=== PATIENT | male | born 1950 | race Caucasian/White ===

== ENCOUNTER 2021-06-20 22:24 | Emergency (ER) | payer MEDICARE, BC, SELFPAY ==
--- NOTE | ~2021-06-20 | CT_ITS ---
EXAMINATION: NONCONTRAST HEAD CT NONCONTRAST CERVICAL SPINE CT INDICATION INFORMATION: Status post fall COMPARISON: None TECHNIQUE: Separate noncontrast CT examinations of the head and cervical spine were performed. Coronal head CT images and coronal and sagittal cervical spine images were created at the technologist workstation. DLP: 1474 mGy-cm DOSE LOWERING TECHNIQUES: This CT examination was performed using dose optimization techniques as appropriate, variously including the following: - Automated exposure control - Adjustment of mA and/or kV according to patient size (this includes techniques or standardized protocols for targeted exams were dose is matched to indication/reason for exam; i.e. extremities or head) - Use of iterative reconstruction technique FINDINGS: Head: There is no evidence of acute intracranial hemorrhage or territorial infarction. No abnormal mass-effect or midline shift is seen. [place] to white matter differentiation is well preserved. No extra-axial fluid collections are identified. The ventricles are normal in size. Mild volume loss is noted. The osseous structures and soft tissues are normal. There is rightward deviation of the nasal septum. The mastoid air cells and visualized portions of the paranasal sinuses are well-aerated. Cervical spine: There is degenerative change at the atlantodens articulation. There is grade 1 anterolisthesis of C3 on C4 and C4 on C5 which is favored to be chronic/degenerative in nature in the setting of extensive multilevel facet arthropathy. Vertebral body heights are maintained. There is disc space narrowing in the lower cervical spine with associated endplate osteophytes. No evidence of acute fracture. No prevertebral soft tissue swelling. Visualized portions of the lung apices are unremarkable. The thyroid gland is unremarkable. CT/CT cervical spine wo con IMPRESSION: No acute findings identified in the head or cervical spine. Degenerative changes of the cervical spine.
[2021-06-20 22:38] VITALS: BP 112/58; PULSE 74; RESP 18; TEMP 36.4; O2SAT 97; BMI 32.8
[2021-06-20 22:44] LABS: Glucose, Whole Blood 263 mg/dL (60-115)
--- NOTE | 2021-06-20 23:30 | ED_ITS ---
HPI - Fall General Chief Complaint: Fall Stated Complaint: fall Time Seen by Provider: 06/20/21 22:40 Source: patient Mode of arrival: EMS Limitations: no limitations History of Present Illness HPI Narrative: Patient had few drinks on blood thinner Eliquis? was coming out of the bar lost balance and fell hitting his head to the ground with bleeding from the mouth transit passed out, no seizures acting normally now. Patient denied any chest pain or palpitation or shortness of breath Related Data Allergies Allergy/AdvReac Type Severity Reaction Status Date / Time No Known Allergies Allergy Verified 06/20/21 22:50 Review of Systems Review of Systems: Yes all other systems are reviewed and are negative REPLACED BY [facility] Past Medical History Medical History Diabetes Physical Exam Vital Signs: Vital Signs: Last Vital Signs Temp 97.5 F 06/20/21 22:38 Pulse 74 06/20/21 22:38 Resp 18 06/20/21 22:38 BP 112/58 L 06/20/21 22:38 Pulse Ox 97 06/20/21 22:38 Oxygen Flow Rate 2 06/20/21 22:38 Body Mass Index 32.8 Appearance: Alert. Oriented X3. No acute distress. Intoxicated Eyes: PERRLA, No Nystagmus ENT: Pharynx normal. Oral Mucosa moist dried blood in the mouth teeth are intact Neck: Normal inspection. Neck supple. CVS: Normal heart rate and rhythm. Pulses normal. Respiratory: No respiratory distress. Equal air entry bilateral, no wheezing/rales/rhonchi Abdomen: Soft and nontender. Bowel sounds are present, no mass palpable, no CVA tenderness Skin: Skin warm and dry. Normal skin color. Normal skin turgor. Extremities: No lower extremity edema. No calf tenderness Neuro: Oriented X 3. No motor deficit. No sensory deficit.No cerebellar signs , cranial nerves II-XII intact Course Course Course Narrative: Patient status post mechanical fall after had alcohol. CT scan of the head and C-spine negative with discharge home when sober MDM - Fall Lab Data Labs: Lab Results 06/20/21 Range/Units 22:39 POC Glucose 263 H (60-115) mg/dL Discharge Plan Discharge Clinical Impression: Head injury Qualifiers: Encounter type: initial encounter Qualified Code(s): S09.90XA - Unspecified injury of head, initial encounter Patient Disposition: Home, Self-Care Instructions: Head Injury (ED), Abuse of Alcohol (ED) Additional Instructions: Rest at home Report to the ER if in and change in mental status/seizures/ any focal weakness
== END 2021-06-21 02:02 | disposition home or self-care (01) ==
LOC: HO.ED 06-21 01:57
PROVIDERS: Emergency Provider Internal Medicine
DX: S09.90XA Unspecified injury of head, initial encounter (principal); E11.9 Type 2 diabetes mellitus without complications; W18.30XA Fall on same level, unspecified, initial encounter; Y93.9 Activity, unspecified; Y92.89 Other specified places as the place of occurrence of the external cause; Y99.9 Unspecified external cause status
CPT/HCPCS: 70450; 72125; 82947; 99284

== ENCOUNTER 2021-07-11 22:58 | Emergency (ER) | payer MEDICARE, BC, SELFPAY ==
--- NOTE | ~2021-07-11 | CT_ITS ---
EXAMINATION: CT ABDOMEN AND PELVIS WITHOUT CONTRAST CLINICAL INFORMATION: Right-sided pain, history of kidney stones COMPARISON: None TECHNIQUE: Multidetector volumetric imaging was performed from the superior aspect of the liver through the pubic symphysis. Sagittal and coronal reformatted images were obtained on the technologist's workstation. This CT examination was performed using dose optimization techniques as appropriate, variously including the following: *Automated exposure control *Adjustment of mA and/or kV according to patient size (this includes techniques or standardized protocols for targeted exams where dose is matched to indication/reason for exam; i.e. extremities or head) *Use of iterative reconstruction technique DLP: 752 mGy-cm FINDINGS: LUNG BASES: The visualized lung bases are unremarkable. LIVER, GALLBLADDER, AND BILIARY TREE: The liver is normal in size, shape, and attenuation. No focal hepatic lesion or biliary ductal dilatation is present. Cholelithiasis is noted. PANCREAS: Atrophic appearance of the pancreas. SPLEEN: Unremarkable. ADRENAL GLANDS: Unremarkable. KIDNEYS AND URETERS: The kidneys are normal in size, shape, and attenuation. Punctate mid right renal calculus is noted. No hydronephrosis, hydroureter, or obstructing calculi seen. Left renal cysts are noted; no follow-up recommended. BLADDER: Unremarkable. GASTROINTESTINAL TRACT: Suture lines are noted along the stomach and proximal small bowel consistent with gastric bypass surgery. No evidence of bowel obstruction. There is colonic diverticulosis without diverticulitis. No free fluid or free air is seen. ABDOMINAL WALL: Bilateral fat-containing inguinal hernias are noted. LYMPH NODES: Normal. VASCULAR: There is atherosclerotic calcification along the aorta and iliac arteries. PELVIC VISCERA: Unremarkable. OSSEOUS STRUCTURES: Degenerative changes are noted in the spine. CT/CT abdomen pelvis wo con IMPRESSION: 1. Cholelithiasis. If there is clinical concern for acute cholecystitis, correlation with ultrasound is recommended. 2. No hydronephrosis or obstructing calculus.
[2021-07-11 23:11] VITALS: BP 199/91; PULSE 57; RESP 16; TEMP 36.8; O2SAT 94; BMI 33.0
[2021-07-11 23:52] LABS: MANUAL DIFF FLAG NO
[2021-07-11 23:53] LABS: Basophils Absolute Auto 0.1 X10*3/uL (0.0-0.2); Basophils Percent Auto 0.5 % (0-2); Eosinophils Absolute Auto 0.1 X10*3/uL (0.0-0.4); Eosinophils Percent Auto 0.7 % (0-4); Hematocrit 48.7 % (42.0-52.0); Hemoglobin 16.2 g/dl (14.0-18.0); Imm Gran Abs Auto 0.06 X10*3/uL (0.00-0.03); Imm Gran Pct Auto 0.4 % (0.0-0.4); Lymphocytes Absolute Auto 1.4 X10*3/uL (1.2-4.9); Lymphocytes Percent Auto 9.4 % (20-40); Mean Corpuscular HGB Conc 33.3 g/dl (31.0-36.0); Mean Corpuscular Hemoglobin 29.9 pg (27.0-33.0); Mean Platelet Volume 10.4 fL (9.4-12.4); Monocytes Absolute Auto 0.9 X10*3/uL (0.1-1.2); Monocytes Percent Auto 6.4 % (2-11); Neutrophils Percent Auto 82.6 % (45-73); Platelet Count 235 X10*3/uL (160-400); Red Blood Count 5.41 X10*6/uL (4.60-5.80); Red Cell Distribution Width 13.3 % (11.0-16.0); White Blood Count 14.6 X10*3/uL (4.8-10.8)
[2021-07-11 23:55] LABS: Appearance Urine CLEAR; Color Urine YELLOW; Glucose Urine UA >=1000 MG/DL (NEG); Leukocyte Esterase Urine NEG (NEG); Nitrite Urine NEG (NEG); UACC Culture Trigger NO; Urine Blood TRACE (NEG); Urine Ketones NEG (NEG); Urine Protein 1+ MG/DL (NEG-TRACE)
[2021-07-12 00:11] LABS: Alanine Aminotransferase 103 U/L (0-40); Albumin Level 4.4 g/dL (3.5-5.0); Alkaline Phosphatase 130 U/L (39-117); Anion Gap 17 (12-20); Aspartate Amino Transferase 59 U/L (5-37); Bacteria Urine 1+ /LPF; Bilirubin Total 0.6 mg/dL (0.0-1.0); Blood Urea Nitrogen 14 mg/dL (9-16); Calcium 9.2 mg/dL (8.4-10.2); Carbon Dioxide 22 mmol/L (22-29); Chloride 105 mmol/L (96-108); Creatinine Clr Calc Pharmacy 76.9; Estimated Glomerular Filt Rate > 60; Glucose Random 206 mg/dL (60-115); Mucus Urine 1+ /LPF; Sodium 140 mmol/L (135-145); Squamous Epithelial Cell Urine 1+ /LPF; UACC CULT YES
--- NOTE | 2021-07-12 00:56 | ED_ITS ---
HPI - Abdominal Pain General Chief Complaint: Abdominal Pain Stated Complaint: ABD PAIN Time Seen by Provider: 07/12/21 00:46 Source: patient History of Present Illness HPI narrative: Patient complains of severe epigastric pain prior to arrival. He states this started approximately 9:00 p.m.. Started in his epigastrium and radiated down words. No nausea vomiting diarrhea or constipation No urinary symptoms No back pain Patient states he has a history of he thinks both kidney stones and gallstones. Prior surgery significant for gastric bypass. As far as he knows his gallbladder is still in. He thinks he may have had his appendix out with the gastric bypass surgery. But he is not sure. Currently feels much better the pain resolved spontaneously approximately 1 hour ago. He states he has a history of kidney stones but does not remember if this is what it felt like. He does not think his gallstones of ever acted up Related Data Home Medications Medication Instructions Recorded Confirmed donepezil 10 mg tablet 1 tab PO DAILY 07/12/21 07/12/21 empagliflozin 25 mg tablet 1 tab PO DAILY 07/12/21 07/12/21 (Jardiance) ezetimibe 10 mg-simvastatin 80 mg 1 tab PO BEDTIME 07/12/21 07/12/21 tablet glimepiride 4 mg tablet 1 tab PO BID 07/12/21 07/12/21 insulin aspart U-100 100 unit/mL See Rx Instructions .ROUTE .COMPLEX 07/12/21 07/12/21 (3 mL) subcutaneous pen (Novolog Flexpen U-100 Insulin aspart) insulin glargine U-300 conc 300 See Rx Instructions .ROUTE .COMPLEX 07/12/21 07/12/21 unit/mL (1.5 mL) subcutaneous pen (Toujeo SoloStar U-300 Insulin) metoprolol succinate 50 mg capsule 1 cap PO DAILY 07/12/21 07/12/21 sprinkle, ext. release 24 hr (Kapspargo Sprinkle) pantoprazole 40 mg tablet,delayed 1 tab PO DAILY 07/12/21 07/12/21 release ticagrelor 60 mg tablet (Brilinta) 1 tab PO BID 07/12/21 07/12/21 Allergies Allergy/AdvReac Type Severity Reaction Status Date / Time No Known Allergies Allergy Verified 06/20/21 22:50 Review of Systems Constitutional: Denies fatigue and Denies fever(s) Comments: No chest pain Comments: No cough or dyspnea Comments: Abdominal pain as described Comments: No dysuria no hematuria Comments: No extremity pain Comments: No rash Comments: No weakness Endocrine: Denies fatigue Physical Exam Vital Signs: Vital Signs: Last Vital Signs Temp 98.2 F 07/11/21 23:11 Pulse 66 07/12/21 01:25 Resp 20 07/12/21 01:25 BP 139/48 L 07/12/21 01:25 Pulse Ox 95 07/12/21 01:25 Body Mass Index 33.0 Const: Other: Alert no acute distress Resp: Other: Clear and equal bilaterally Cardio: Other: Regular rate and rhythm without murmurs rubs or gallops GI: Other: Soft, nondistended. Mild right lower quadrant abdominal tenderness to palpation without guarding or rebound. No specific Whipple's sign. No flank tenderness to percussion Skin: Other: Warm pink and dry Neuro: Other: Nonfocal Course Course Course Narrative: Abdominal pain Gallstone Kidney stone Appendicitis Patient is comfortable at the moment. Urinalysis normal Lab work normal 2:[address] scan demonstrates gallstones but no obvious cholecystitis. No obvious kidney stones. Re-examination shows patient is is nontender. He is stable for discharge home. Will refer to surgery as the most probable cause of his pain was biliary colic secondary to gallstones without cholecystitis at this time MDM - Abdominal Pain Lab Data Result diagrams: 07/11/21 23:46 07/11/21 23:46 Labs: Lab Results 07/11/21 07/11/21 07/11/21 Range/Units 23:46 23:46 23:46 WBC 14.6 H (4.8-10.8) X10*3/uL RBC 5.41 (4.60-5.80) X10*6/uL Hgb 16.2 (14.0-18.0) g/dl Hct 48.7 (42.0-52.0) % MCV 90.0 (80.0-98.0) fL MCH 29.9 (27.0-33.0) pg MCHC 33.3 (31.0-36.0) g/dl RDW 13.3 (11.0-16.0) % Plt Count 235 (160-400) X10*3/uL MPV 10.4 (9.4-12.4) fL Immature Gran % (Auto) 0.4 (0.0-0.4) % Neut % (Auto) 82.6 H (45-73) % Lymph % (Auto) 9.4 L (20-40) % [place] % (Auto) 6.4 (2-11) % Eos % (Auto) 0.7 (0-4) % Baso % (Auto) 0.5 (0-2) % Lymph # (Auto) 1.4 (1.2-4.9) X10*3/uL [place] # (Auto) 0.9 (0.1-1.2) X10*3/uL Eos # (Auto) 0.1 (0.0-0.4) X10*3/uL Baso # (Auto) 0.1 (0.0-0.2) X10*3/uL Abs Immat Gran (auto) 0.06 H (0.00-0.03) X10*3/uL Absolute Neuts (auto) 12.0 H (2.0-8.3) x10*3/uL Absolute Nucleated RBC 0.000 (0.0-0.012) X10*3/uL Nucleated RBC % (auto) 0.0 (0.0-0.2) /100WBC Sodium 140 (135-145) mmol/L Potassium 4.0 (3.3-5.1) mmol/L Chloride 105 (96-108) mmol/L Carbon Dioxide 22 (22-29) mmol/L Anion Gap 17 (12-20) BUN 14 (9-16) mg/dL Creatinine 1.05 (0.5-1.4) mg/dL Estim Creat Clear Calc 76.9 Estimated GFR > 60 Random Glucose 206 H (60-115) mg/dL Calcium 9.2 (8.4-10.2) mg/dL Total Bilirubin 0.6 (0.0-1.0) mg/dL AST 59 H (5-37) U/L ALT 103 H (0-40) U/L Alkaline Phosphatase 130 H (39-117) U/L Total Protein 7.0 (6.5-8.0) g/dL Albumin 4.4 (3.5-5.0) g/dL Urine Color YELLOW Urine Appearance CLEAR Urine pH 6.0 (5.0-8.0) Ur Specific Leonidas 1.020 (1.005-1.025) Urine Protein 1+ H (NEG-TRACE) MG/DL Urine Glucose (UA) >=1000 H (NEG) MG/DL Urine Ketones NEG (NEG) MG/DL Urine Blood TRACE (NEG) Urine Nitrite NEG (NEG) Ur Leukocyte Esterase NEG (NEG) Urine RBC 1-4 (0) /HPF Urine WBC 5-9 H (0-4) /HPF Ur Squamous Epith Cells 1+ /LPF Urine Bacteria 1+ /LPF Urine Mucus 1+ /LPF Discharge Plan Discharge Clinical Impression: Gallstones Patient Disposition: Home, Self-Care Instructions: Gallstones (ED) Prescriptions: No Action donepezil 10 mg tablet 1 tab PO DAILY RF: 0 glimepiride 4 mg tablet 1 tab PO BID RF: 0 insulin aspart U-100 [Novolog Flexpen U-100 Insulin] 100 unit/mL (3 mL) insulin pen See Rx Instructions .ROUTE .COMPLEX RF: 0 ezetimibe-simvastatin 10-80 mg tablet 1 tab PO BEDTIME RF: 0 Jardiance 25 mg tablet 1 tab PO DAILY RF: 0 Toujeo SoloStar U-300 Insulin 300 unit/mL (1.5 mL) insulin pen See Rx Instructions .ROUTE .COMPLEX RF: 0 Brilinta 60 mg tablet 1 tab PO BID RF: 0 Kapspargo Sprinkle 50 mg capsule,sprinkle,ER 24hr 1 cap PO DAILY RF: 0 pantoprazole 40 mg tablet,delayed release (DR/EC) 1 tab PO DAILY RF: 0 Referrals: Jose Franco MD [Physician] - 2 days [facility] Past Medical History Medical History Diabetes Social History Social History Alcohol intake: former Patient Tobacco Use Status: Never used Tobacco Use of substances other than those prescribed or required for medical reasons: Yes Substance Use Type: Other Substance Use Frequency: Occasionally Advance Directives: No Advance Directives Information Provided: No
[2021-07-12 01:25] VITALS: BP 139/48; PULSE 66; RESP 20; O2SAT 95
[2021-07-12 02:00] VITALS: BP 139/48; PULSE 66; RESP 20; TEMP 36.8; O2SAT 95
== END 2021-07-12 03:53 | disposition home or self-care (01) ==
PROVIDERS: Emergency Provider Emergency Medicine
DX: K80.80 Other cholelithiasis without obstruction (principal); R10.13 Epigastric pain
CPT/HCPCS: 36415; 74176; 80053; 81001; 85025; 87086; 99285

== ENCOUNTER 2021-07-13 00:49 | Inpatient (IN) | payer MEDICARE, BC, SELFPAY ==
--- NOTE | ~2021-07-13 | XR_ITS ---
EXAMINATION: XR CHEST CLINICAL INFORMATION: Right upper quadrant pain COMPARISON: None TECHNIQUE: Frontal view of the chest was obtained. FINDINGS: Lung volumes dissection. Minimal bibasilar atelectasis is suspected without additional consolidation bilaterally. No evidence of pneumothorax, pleural effusion, or pulmonary edema. Cardiac size is within normal limits. Calcification is present at the aortic arch. Sternal wires and mediastinal clips are noted. No acute osseous findings are seen. XR/XR chest 1V IMPRESSION: Minimal bibasilar atelectasis without additional acute findings.
--- NOTE | ~2021-07-13 | MR_ITS ---
EXAMINATION: MR ABDOMEN WITHOUT CONTRAST CLINICAL INFORMATION: Transaminitis. Rule out common bile duct stone. COMPARISON: Comparison is made with previous CT of the abdomen and pelvis July 12 and ultrasound of the abdomen 07/13/2021 TECHNIQUE: MR abdomen is performed without gadolinium contrast. MRCP sequences were also performed. FINDINGS: LUNG BASES: The visualized lung bases are unremarkable. LIVER, GALLBLADDER, AND BILIARY TREE: The liver is normal in size and shape. There is fatty infiltration of the liver. No focal liver lesion is seen. The gallbladder is upper normal in size. There are stones and heterogeneous material in the gallbladder. The gallbladder wall appears slightly thickened and edematous, gallbladder wall measuring up to 5 mm. Appearance is concerning for acute cholecystitis. There is no intra or extrahepatic biliary duct dilatation. The common bile duct measures 4 mm. No common bile duct stone is seen. PANCREAS: The pancreas appears atrophic. Pancreas is otherwise normal. The main pancreatic duct is normal in caliber. SPLEEN: Unremarkable. ADRENAL GLANDS: Unremarkable. KIDNEYS AND URETERS: There are several left renal simple cysts. Largest measures 3 cm. No imaging follow-up needed. The kidneys are otherwise unremarkable GASTROINTESTINAL TRACT: There is diverticulosis of the colon. Postsurgical changes from gastric bypass. No bowel obstruction. No ascites or fluid collection. ABDOMINAL WALL: No significant hernia is appreciated. LYMPH NODES: No lymphadenopathy. VASCULAR: Unremarkable. OSSEOUS STRUCTURES: Marrow signal normal. There are degenerative changes of the spine. MR/MR MRCP IMPRESSION: Upper normal-size gallbladder with gallstones and heterogeneous material probably representing sludge. Thickened edematous gallbladder wall. Findings are concerning for acute cholecystitis. Normal caliber intra and extrahepatic bile ducts. No common bile duct stone seen. Left renal cysts. Diverticulosis of the colon. Gastric bypass.
--- NOTE | ~2021-07-13 | US_ITS ---
EXAMINATION: US ABDOMEN LIMITED CLINICAL INFORMATION: Right upper quadrant pain, assess for acute cholecystitis. COMPARISON: CT 07/12/2021 TECHNIQUE: Real-time imaging of the right upper quadrant abdominal viscera. FINDINGS: PANCREAS: Obscured by overlying bowel gas. LIVER: Limited views. The liver is normal in size. The liver contour is normal. Echogenicity appears increased suggesting steatosis, with possible focal sparing near the gallbladder fossa. No focal hepatic lesion. There is no intrahepatic biliary duct dilatation seen. GALLBLADDER: The gallbladder is distended and contains multiple gallstones as well as sludge. Impacted stone may be present. There is mild gallbladder wall thickening to 0.4 cm. Right upper quadrant tenderness was reported during the exam. COMMON BILE DUCT: Normal in caliber measuring 0.4 cm in diameter. RIGHT KIDNEY: No hydronephrosis. No renal calculi or focal parenchymal lesions. The kidney measures 12.8 cm in maximum dimension. FREE FLUID: None. US/US abdomen limited IMPRESSION: Cholelithiasis and gallbladder sludge. Impacted stone may be present, and there is mild gallbladder wall thickening. These findings can be seen with acute cholecystitis in the proper clinical setting.
--- NOTE | 2021-07-13 01:07 | ECG_ITS ---
Test Reason : ABDOMINAL PAIN Blood Pressure : / mmHG Vent. Rate : 105 BPM Atrial Rate : 000 BPM P-R Int : 000 ms QRS Dur : 104 ms QT Int : 340 ms P-R-T Axes : 000 -07 086 degrees QTc Int : 449 ms Normal sinus rhythm with 1st degree A-V block Intra-ventricular conduction delay Low voltage QRS Abnormal ECG No previous ECGs available Referred By: Yonny Valenzuela Electronically Signed By:LEONEL GEORGE MD
[2021-07-13 01:12] VITALS: BP 165/81; BP 191/86; PULSE 104; PULSE 98; RESP 18; TEMP 37.1; O2SAT 94; O2SAT 95; BMI 36.0
--- NOTE | 2021-07-13 01:14 | ED.ABDPAIN ---
HPI - Abdominal Pain General Chief Complaint: Abdominal Pain Stated Complaint: Abd pain Time Seen by Provider: 07/13/21 01:06 Source: patient Mode of arrival: ambulatory Limitations: no limitations History of Present Illness HPI narrative: 71-year-old male return to the emergency department for evaluation of upper abdominal pain, pain started since yesterday, pain is to the right upper quadrant and epigastric area, described as dull aching pain, constant, severe 10/10. Worsening with food, no associations with nausea and vomiting. Patient was seen in the emergency department yesterday had a CT scan of the abdomen pelvis which show cholelithiasis patient return for worsening of the pain. history of gastric bypass many years ago. Related Data Home Medications Medication Instructions Recorded Confirmed donepezil 10 mg tablet 1 tab PO DAILY 07/12/21 07/12/21 empagliflozin 25 mg tablet 1 tab PO DAILY 07/12/21 07/12/21 (Jardiance) ezetimibe 10 mg-simvastatin 80 mg 1 tab PO BEDTIME 07/12/21 07/12/21 tablet glimepiride 4 mg tablet 1 tab PO BID 07/12/21 07/12/21 insulin aspart U-100 100 unit/mL See Rx Instructions .ROUTE .COMPLEX 07/12/21 07/12/21 (3 mL) subcutaneous pen (Novolog Flexpen U-100 Insulin aspart) insulin glargine U-300 conc 300 See Rx Instructions .ROUTE .COMPLEX 07/12/21 07/12/21 unit/mL (1.5 mL) subcutaneous pen (Toujeo SoloStar U-300 Insulin) metoprolol succinate 50 mg capsule 1 cap PO DAILY 07/12/21 07/12/21 sprinkle, ext. release 24 hr (Kapspargo Sprinkle) pantoprazole 40 mg tablet,delayed 1 tab PO DAILY 07/12/21 07/12/21 release ticagrelor 60 mg tablet (Brilinta) 1 tab PO BID 07/12/21 07/12/21 Allergies Allergy/AdvReac Type Severity Reaction Status Date / Time No Known Allergies Allergy Verified 06/20/21 22:50 Review of Systems Review of Systems All other systems are reviewed and are negative Constitutional: Reports as per HPI and Reports no additional constitutional complaints Eyes: Reports as per HPI and Reports no additional eye complaints Reports system reviewed and no additional complaints, except as documented Cardiovascular: Reports as per HPI and Reports no additional cardiovascular complaints Respiratory: Reports as per HPI and Reports no additional respiratory complaints Gastrointestinal: Reports as per HPI and Reports no additional gastrointestinal complaints Genitourinary: Reports no additional female genitourinary complaints Musculoskeletal: Reports no additional musculoskeletal complaints Skin/Breast: Reports system reviewed and no additional complaints, except as docu Psychiatric: Reports no additional psychiatric complaints Endocrine: Reports no additional endocrine complaints Hematologic/Lymphatic: Reports no additional hematologic/lymphatic complaints Allergic/Immunologic: Reports no additional allergic/immunologic complaints Reports system reviewed and no additional complaints, except as documented and Reports Abnormal speech present Physical Exam Vital Signs: Vital Signs: Last Vital Signs Temp 98.8 F 07/13/21 02:42 Pulse 104 H 07/13/21 02:42 Resp 20 07/13/21 02:42 BP 150/80 H 07/13/21 02:42 Pulse Ox 95 07/13/21 02:42 Body Mass Index 36.0 vital signs have been reviewed as appeared to be correct. Blood pressure normal. Heart rate normal. Respiration rate normal. Temperature normal. Oxygen saturation normal. Appearance: Alert. Oriented X3. No acute distress. Head: Normal external exam. Normocephalic. Atraumatic. No Sewell signs noted. No raccoon eyes noted Eyes: PERRLA. EOMI. Conjunctiva and sclera normal. Eyelids normal. ENT: TM's Normal. Pharynx normal. Uvula midline. Moist mucous membranes. No trismus noted. No drooling noted. No muffled voice noted. Neck: Normal inspection. Neck supple. FROM. No adenopathy. Thyroid Normal. No meningeal signs. No neck mass noted. CVS: Normal heart rate and rhythm. Heart sound normal. No murmurs noted. Pulses normal throughout. Respiratory: No respiratory distress. Painless inspiration. Breath sounds normal. No wheezes/rales/rhonchi noted. Chest nontender. No accessory muscle usage noted or decreased air movement noted. Abdomen: Obese, soft, right upper quadrant tenderness, positive Whipple sign. No rebound tenderness, no guarding. Bowel sounds normal in all 4 quadrants. No distention noted. No organomegaly noted. No visible injury noted. Back: No CVA tenderness. Full range of motion noted. Skin: Skin warm and dry. Normal skin color. Normal skin turgor. No rashes/lesions/lacerations noted. Extremities: No lower extremity edema. Extremities exhibit normal range of motion. Extremities nontender. Neuro: Oriented X 3. Cranial nerve exam: II-XII are grossly intact No motor deficit. No sensory deficit. Reflexes normal. Course Course Course Narrative: assessment and plan. 71-year-old male return to the emergency department for increased abdominal pain and vomiting, patient found to to have acute elevation of LFTs and bilirubins, ultrasound is suggesting impacted stone in the gallbladder neck, possibility of acute cholecystitis( ultrasound read at 3:08 am ). Will cover with Zosyn /Levaquin, IV fluid hydration. The case discussed with Dr. Padilla who recommended to admit the patient to Medicine for possible ERCP in the morning. The case discussed with Dr. Negron who accepted the patient to medical agustin. MDM - Abdominal Pain Medical Records Attestation: I reviewed the patient's medical records. Lab Data Attestation: I reviewed the patient's lab results. Result diagrams: 07/13/21 01:28 07/13/21 01:26 Labs: Lab Results 07/13/21 07/13/21 07/13/21 Range/Units 01:22 01:26 01:28 WBC 16.5 H (4.8-10.8) X10*3/uL RBC 5.87 H (4.60-5.80) X10*6/uL Hgb 17.5 (14.0-18.0) g/dl Hct 53.0 H (42.0-52.0) % MCV 90.3 (80.0-98.0) fL MCH 29.8 (27.0-33.0) pg MCHC 33.0 (31.0-36.0) g/dl RDW 13.4 (11.0-16.0) % Plt Count 200 (160-400) X10*3/uL MPV 10.5 (9.4-12.4) fL Immature Gran % (Auto) 0.4 (0.0-0.4) % Neut % (Auto) 82.7 H (45-73) % Lymph % (Auto) 9.0 L (20-40) % Mccreary % (Auto) 7.3 (2-11) % Eos % (Auto) 0.1 (0-4) % Baso % (Auto) 0.5 (0-2) % Lymph # (Auto) 1.5 (1.2-4.9) X10*3/uL [place] # (Auto) 1.2 (0.1-1.2) X10*3/uL Eos # (Auto) 0.0 (0.0-0.4) X10*3/uL Baso # (Auto) 0.1 (0.0-0.2) X10*3/uL Abs Immat Gran (auto) 0.06 H (0.00-0.03) X10*3/uL Absolute Neuts (auto) 13.7 H (2.0-8.3) x10*3/uL Absolute Nucleated RBC 0.000 (0.0-0.012) X10*3/uL Nucleated RBC % (auto) 0.0 (0.0-0.2) /100WBC Sodium 137 (135-145) mmol/L Potassium 4.3 (3.3-5.1) mmol/L Chloride 98 (96-108) mmol/L Carbon Dioxide 20 L (22-29) mmol/L Anion Gap 23 H (12-20) BUN 17 H (9-16) mg/dL Creatinine 1.21 (0.5-1.4) mg/dL Estim Creat Clear Calc 63.5 Estimated GFR 59 Random Glucose 244 H (60-115) mg/dL Calcium 10.7 H D (8.4-10.2) mg/dL Total Bilirubin 4.1 H (0.0-1.0) mg/dL Direct Bilirubin 3.5 H (0.0-0.5) mg/dL AST 654 H (5-37) U/L ALT 542 H (0-40) U/L Alkaline Phosphatase 333 H D (39-117) U/L Troponin I High Sens (<3.5-35.0) ng/L Total Protein 7.8 (6.5-8.0) g/dL Albumin 4.7 (3.5-5.0) g/dL Lipase 215 H (8-78) U/L COVID-19 ([facility]) Negative (Negative) COVID-19 Clin Com See Note 07/13/21 Range/Units 01:28 WBC (4.8-10.8) X10*3/uL RBC (4.60-5.80) X10*6/uL Hgb (14.0-18.0) g/dl Hct (42.0-52.0) % MCV (80.0-98.0) fL MCH (27.0-33.0) pg MCHC (31.0-36.0) g/dl RDW (11.0-16.0) % Plt Count (160-400) X10*3/uL MPV (9.4-12.4) fL Immature Gran % (Auto) (0.0-0.4) % Neut % (Auto) (45-73) % Lymph % (Auto) (20-40) % Mccreary % (Auto) (2-11) % Eos % (Auto) (0-4) % Baso % (Auto) (0-2) % Lymph # (Auto) (1.2-4.9) X10*3/uL Mccreary # (Auto) (0.1-1.2) X10*3/uL Eos # (Auto) (0.0-0.4) X10*3/uL Baso # (Auto) (0.0-0.2) X10*3/uL Abs Immat Gran (auto) (0.00-0.03) X10*3/uL Absolute Neuts (auto) (2.0-8.3) x10*3/uL Absolute Nucleated RBC (0.0-0.012) X10*3/uL Nucleated RBC % (auto) (0.0-0.2) /100WBC Sodium (135-145) mmol/L Potassium (3.3-5.1) mmol/L Chloride (96-108) mmol/L Carbon Dioxide (22-29) mmol/L Anion Gap (12-20) BUN (9-16) mg/dL Creatinine (0.5-1.4) mg/dL Estim Creat Clear Calc Estimated GFR Random Glucose (60-115) mg/dL Calcium (8.4-10.2) mg/dL Total Bilirubin (0.0-1.0) mg/dL Direct Bilirubin (0.0-0.5) mg/dL AST (5-37) U/L ALT (0-40) U/L Alkaline Phosphatase (39-117) U/L Troponin I High Sens 9.5 (<3.5-35.0) ng/L Total Protein (6.5-8.0) g/dL Albumin (3.5-5.0) g/dL Lipase (8-78) U/L COVID-19 ([facility]) (Negative) COVID-19 Clin Com Imaging Data Abdominal ultrasound: Radiologist's impression: Cholelithiasis and gallbladder sludge. Impacted stone may be present, and there is mild gallbladder wall thickening. These findings can be seen with acute cholecystitis in the proper clinical setting. Chest x-ray: Radiologist's impression: Minimal bibasilar atelectasis without additional acute findings. Discharge Plan Discharge Clinical Impression: Acute calculous cholecystitis Patient Disposition: Admitted As Inpatient [facility] Past Medical History Medical History Diabetes Social History Social History Alcohol intake: former Patient Tobacco Use Status: Never used Tobacco Substance Use Type: Other Advance Directives: No
[2021-07-13 01:19] VITALS: BP 191/86; PULSE 104; RESP 22; TEMP 36.6; O2SAT 94
[2021-07-13 01:33] LABS: MANUAL DIFF FLAG NO
[2021-07-13 01:34] LABS: Basophils Absolute Auto 0.1 X10*3/uL (0.0-0.2); Basophils Percent Auto 0.5 % (0-2); Eosinophils Percent Auto 0.1 % (0-4); Hemoglobin 17.5 g/dl (14.0-18.0); Imm Gran Abs Auto 0.06 X10*3/uL (0.00-0.03); Imm Gran Pct Auto 0.4 % (0.0-0.4); Lymphocytes Absolute Auto 1.5 X10*3/uL (1.2-4.9); Mean Corpuscular Hemoglobin 29.8 pg (27.0-33.0); Mean Corpuscular Volume 90.3 fL (80.0-98.0); Mean Platelet Volume 10.5 fL (9.4-12.4); Monocytes Absolute Auto 1.2 X10*3/uL (0.1-1.2); Monocytes Percent Auto 7.3 % (2-11); Neutrophils Absolute Auto 13.7 x10*3/uL (2.0-8.3); Neutrophils Percent Auto 82.7 % (45-73); Platelet Count 200 X10*3/uL (160-400); Red Blood Count 5.87 X10*6/uL (4.60-5.80); Red Cell Distribution Width 13.4 % (11.0-16.0); White Blood Count 16.5 X10*3/uL (4.8-10.8)
[2021-07-13] MEDS: Morphine Sulfate 2 MG/ML CARTRIDGE IVPUSH (01:34)
[2021-07-13] MEDS: 0.9 % Sodium Chloride 1,000 ML 999 ML IVCONT (01:34)
[2021-07-13] MEDS: Ketorolac Tromethamine 15 MG/ML VIAL 30 MG IVPUSH (01:34)
[2021-07-13 01:40] LABS: COVID-19 Test Negative (Negative)
[2021-07-13 01:53] LABS: Alanine Aminotransferase 542 U/L (0-40); Albumin Level 4.7 g/dL (3.5-5.0); Alkaline Phosphatase 333 U/L (39-117); Anion Gap 23 (12-20); Aspartate Amino Transferase 654 U/L (5-37); Bilirubin Direct 3.5 mg/dL (0.0-0.5); Bilirubin Total 4.1 mg/dL (0.0-1.0); Blood Urea Nitrogen 17 mg/dL (9-16); Calcium 10.7 mg/dL (8.4-10.2); Carbon Dioxide 20 mmol/L (22-29); Chloride 98 mmol/L (96-108); Creatinine Clr Calc Pharmacy 63.5; Estimated Glomerular Filt Rate 59; Glucose Random 244 mg/dL (60-115); Lipase 215 U/L (8-78); Potassium 4.3 mmol/L (3.3-5.1); Sodium 137 mmol/L (135-145); Total Protein 7.8 g/dL (6.5-8.0)
[2021-07-13 01:53] LABS: Troponin-I High Sensitivity 9.5 ng/L (<3.5-35.0)
[2021-07-13 02:42] VITALS: BP 150/80; PULSE 104; RESP 20; TEMP 37.1; O2SAT 95
--- NOTE | 2021-07-13 04:05 | PM.IMHP ---
History of Present Illness Date of Service: 07/13/21 Chief Complaint: Abdominal pain 71-year-old male with a past medical history of hypertension, hyperlipidemia, diabetes, coronary artery disease status post CABG, obesity, KATINA on CPAP, history of Alzheimer's dementia presented to the hospital with a chief complaint of right upper quadrant abdominal pain. Patient reports that he has been having right upper quadrant abdominal pain associated nausea and vomiting for the past couple days. He presented to the ER yesterday noted to have gallstones and subsequently sent home; presented back today to the hospital again with the worsening abdominal pain; mentions is not able to take anything p.o.. Denies any fevers. Denies any cough or sputum production. Denies any urinary symptoms. Denies any chest pain palpitations lightheadedness or dizziness. Review of all other systems is negative except mentioned above ER course: Per ER team patient noted to have gallstones on the CT scan from yesterday; also noted mild transaminitis; the follow-up CT scan showed findings concerning for cholecystitis; also noted to have severely elevated liver enzymes compared to yesterday; patient was given IV antibiotics given concerns for acute cholecystitis-spoke to General surgery who suggested admission to medicine service. [facility] Medical History Diabetes Pertinent family history: Reviewed Social History Alcohol intake: former Patient Tobacco Use Status: Never used Tobacco Substance Use Type: Other Advance Directives: No Meds Allergies Allergy/AdvReac Type Severity Reaction Status Date / Time No Known Allergies Allergy Verified 06/20/21 22:50 Active Medications: HOME MEDS: aspirin 81 mg oral delayed release tablet, 81 mg= 1 tablet, By Mouth, Daily Baqsimi Two Pack 3 mg nasal powder, 3 mg, Naris, Left, Once, 3 refills, use for lowblood sugar emergency, may repeat in 15 minutes Dexilant 60 mg oral delayed release capsule, 60 mg= 1 capsule, By Mouth, Daily donepezil 10 mg oral tablet, 1 tablet, By Mouth, Daily at bedtime, 3 refills duloxetine 60 mg oral enteric coated capsule, 60 mg= 1 capsule, By Mouth, Daily empagliflozin 25 mg oral tablet, 25 mg= 1 tablet, By Mouth, Daily in AM, 3 refills ezetimibe-simvastatin 10 mg-80 mg oral tablet, 1 tablet, By Mouth, Daily, 1 refills Freestyle Lite Test Strips, See Instructions, 4 refills, use as directed for Type 2 Diabetes Mellitus glimepiride 4 mg oral tablet, 4 mg= 1 tablet, By Mouth, 2 times a day, 3 refills, Please take twice a day with meals Humalog 100 u/ml subcutaneous injection, See Instructions, 15,25,30U pre meals Lantus 100 u/ml subcutaneous solution, 40 units, Subcutaneous Injection, Daily at bedtime losartan 50 mg oral tablet, 50 mg= 1 tablet, By Mouth, Daily metoprolol succinate 50 mg oral capsule, extended release, 50 mg= 1 capsule, By Mouth, Daily, 3 refills multivitamin Multiple Vitamins oral tablet, 1 tablet, By Mouth, Daily Namenda 10 mg oral tablet, 10 mg= 1 tablet, By Mouth, 2 times a day naproxen 500 mg oral delayed release tablet, 500 mg= 1 tablet, By Mouth, 2 times a day, Please stop taking OTC ibuprofen while taking Naproxen Nitrostat 0.4 mg sublingual tablet, 0.4 mg= 1 tablet, Sublingual, Every 5 minutes, PRN, not to exceed 3 doses/15 min--if pain persists, seek medical attention pantoprazole 40 mg oral delayed release tablet, 40 mg= 1 tablet, By Mouth, Daily Relion NovoLOG Flexpen 100 units/mL injectable solution, See Instructions, 6 refills, 100-140 19 units 141-180 20 units 181-220 21 units 221-260 22 units 261-300 23 units 301-340 24 units 341-380 25 units 381-400 26 units > 401 27 units Max daily dose: 81 units E11.9 Toujeo SoloStar 300 units/mL subcutaneous solution, See Instructions, 6 refills, please inject 48 units daily Vitamin C 500 mg oral tablet, 500 mg= 1 tablet, By Mouth, Daily Vitamin D3 50,000 intl units oral capsule, 11916 International_Units= 1 capsule, By Mouth, Every 7 days Current Medications Levofloxacin (Levaquin) 750 mg in 150 mls @ 100 mls/hr IV ONCE ONE Stop: 07/13/21 05:04 Sodium Chloride (Ns) 1,983 mls @ 1,983 mls/hr IV .Q1H ONE Stop: 07/13/21 04:35 Ceftriaxone Sodium 1 gm/ (Sodium Chloride) 50 mls @ 100 mls/hr IV Q24H [facility] Metronidazole (Flagyl) 500 mg in 100 mls @ 100 mls/hr IV Q8H [facility]END[facility] Home Medications Medication Instructions Recorded Confirmed Last Taken Type donepezil 10 mg tablet 1 tab PO DAILY 07/12/21 07/12/21 Unknown History empagliflozin 25 mg tablet 1 tab PO DAILY 07/12/21 07/12/21 Unknown History (Jardiance) ezetimibe 10 mg-simvastatin 80 mg 1 tab PO BEDTIME 07/12/21 07/12/21 Unknown History tablet glimepiride 4 mg tablet 1 tab PO BID 07/12/21 07/12/21 Unknown History insulin aspart U-100 100 unit/mL See Rx Instructions .ROUTE .COMPLEX 07/12/21 07/12/21 Unknown History (3 mL) subcutaneous pen (Novolog Flexpen U-100 Insulin aspart) insulin glargine U-300 conc 300 See Rx Instructions .ROUTE .COMPLEX 07/12/21 07/12/21 Unknown History unit/mL (1.5 mL) subcutaneous pen (Toujeo SoloStar U-300 Insulin) metoprolol succinate 50 mg capsule 1 cap PO DAILY 07/12/21 07/12/21 Unknown History sprinkle, ext. release 24 hr (Kapspargo Sprinkle) pantoprazole 40 mg tablet,delayed 1 tab PO DAILY 07/12/21 07/12/21 Unknown History release ticagrelor 60 mg tablet (Brilinta) 1 tab PO BID 07/12/21 07/12/21 Unknown History Physical Exam Vital Signs and Narrative: Vital Signs: Last Vital Signs Temp 98.8 F 07/13/21 02:42 Pulse 104 H 07/13/21 02:42 Resp 20 07/13/21 02:42 BP 150/80 H 07/13/21 02:42 Pulse Ox 95 07/13/21 02:42 Body Mass Index 36.0 Gen: Appears be in no acute distress HEENT: NCAT, Moist mucosa. Pulmonary: Vesicular breath sounds, fair air entry CVS: Normal S1-S2 Abdomen: BS+, Soft, tender in the right upper quadrant; no guarding no rigidity. Extremities: Warm well perfused Neuro: Alert and awake. Results Labs CBC and Chem 7: 07/13/21 01:28 07/13/21 01:26 Labs: Laboratory Results - last 24 hr 07/13/21 07/13/21 07/13/21 01:22 01:26 01:28 MCV 90.3 MCH 29.8 MCHC 33.0 RDW 13.4 Plt Count 200 MPV 10.5 Immature Gran % (Auto) 0.4 Neut % (Auto) 82.7 H Lymph % (Auto) 9.0 L [place] % (Auto) 7.3 Eos % (Auto) 0.1 Baso % (Auto) 0.5 Lymph # (Auto) 1.5 [place] # (Auto) 1.2 Eos # (Auto) 0.0 Baso # (Auto) 0.1 Abs Immat Gran (auto) 0.06 H Absolute Neuts (auto) 13.7 H Absolute Nucleated RBC 0.000 Nucleated RBC % (auto) 0.0 Anion Gap 23 H Estim Creat Clear Calc 63.5 Estimated GFR 59 Random Glucose 244 H Calcium 10.7 H D Total Bilirubin 4.1 H Direct Bilirubin 3.5 H AST 654 H ALT 542 H Alkaline Phosphatase 333 H D Troponin I High Sens Total Protein 7.8 Albumin 4.7 Lipase 215 H COVID-19 ([facility]) Negative COVID-19 Clin Com See Note 07/13/21 01:28 MCV MCH MCHC RDW Plt Count MPV Immature Gran % (Auto) Neut % (Auto) Lymph % (Auto) [place] % (Auto) Eos % (Auto) Baso % (Auto) Lymph # (Auto) [place] # (Auto) Eos # (Auto) Baso # (Auto) Abs Immat Gran (auto) Absolute Neuts (auto) Absolute Nucleated RBC Nucleated RBC % (auto) Anion Gap Estim Creat Clear Calc Estimated GFR Random Glucose Calcium Total Bilirubin Direct Bilirubin AST ALT Alkaline Phosphatase Troponin I High Sens 9.5 Total Protein Albumin Lipase COVID-19 ([facility]) COVID-19 Clin Com Imaging Radiologist's Impressions: Impressions Chest X-Ray 07/13/21 01:07 IMPRESSION: Minimal bibasilar atelectasis without additional acute findings. Abdomen Ultrasound 07/13/21 01:15 IMPRESSION: Cholelithiasis and gallbladder sludge. Impacted stone may be present, and there is mild gallbladder wall thickening. These findings can be seen with acute cholecystitis in the proper clinical setting. Assessment and Plan (1) Acute calculous cholecystitis: Status: Acute (2) Diabetes: Status: Acute 71-year-old male with a past medical history of hypertension, hyperlipidemia, diabetes, coronary artery disease status post CABG, obesity, KATINA on CPAP, history of Alzheimer's dementia presented to the hospital with a chief complaint of right upper quadrant abdominal pain/noted to have acute cholecystitis/gallstones/transaminitis. Admitted for further management. Acute cholecystitis/gallstones: Patient on IV ceftriaxone and Flagyl. Follow up cultures. General surgery of the patient. Acute transaminitis: Likely in the setting of gallstones causing obstruction. Trend liver enzymes. Gastroenterology consult. Diabetes: Insulin sliding scale History of hypertension/hyperlipidemia/CAD status post CABG: Continue home medications except for aspirin in anticipation for procedure. Hold statin given transaminitis. DVT prophylaxis: SCD boots Code status: Full code Quality Stroke Does the patient have a stroke diagnosis?: No VTE Prior VTE?: No VTE Risk Level:: Medical - moderate - high VTE Device Contraindication: N/A - Device Ordered VTE Drug Contraindication: Treatment Not Indicated
[2021-07-13] MEDS: 0.9 % Sodium Chloride 1,983 ML 1983 ML IV (04:16)
[2021-07-13] MEDS: Piperacillin Sodium/Tazobactam 3.375 GM in 0.9 % Sodium Chloride 50 ML IV (04:17)
[2021-07-13 04:18] LABS: Appearance Urine CLEAR; Color Urine YELLOW; Glucose Urine UA >=1000 MG/DL (NEG); Leukocyte Esterase Urine NEG (NEG); Nitrite Urine NEG (NEG); Urine Blood NEG (NEG); Urine Ketones 40 MG/DL (NEG); Urine Protein TRACE MG/DL (NEG-TRACE)
[2021-07-13 04:27] LABS: Lactic Acid 1.7 mmol/L (0.5-2.0)
[2021-07-13 04:28] LABS: Bacteria Urine 1+ /LPF; Mucus Urine 1+ /LPF; Squamous Epithelial Cell Urine 1+ /LPF
[2021-07-13] MEDS: levoFLOXacin/D5W 750 MG/150 ML PIGGYBACK 100 MG IV (04:43)
--- NOTE | 2021-07-13 05:05 | PC.NURSE ---
REPORT TAKEN FROM GEOVANI RN, FIRST CONTACT WITH PT. RESTING IN BED SKIN PWD RESPIRATIONS EVEN UNLABORED. IV ABX INFUSING WITHOUT DIFFICULTY. DENIES PAIN AT THIS TIME. AWAITING BED ASSIGNMENT FOR ADMISSION. NPO FOR ?SURGERY TODAY.
[2021-07-13] MEDS: metroNIDAZOLE/NS 500 MG/100 ML PIGGYBACK 100 MG IV ×3 (06:09→21:10)
[2021-07-13 07:09] LABS: Basophils Absolute Auto 0.1 X10*3/uL (0.0-0.2); Basophils Percent Auto 0.3 % (0-2); Eosinophils Absolute Auto 0.1 X10*3/uL (0.0-0.4); Eosinophils Percent Auto 0.7 % (0-4); Hematocrit 43.7 % (42.0-52.0); Hemoglobin 14.5 g/dl (14.0-18.0); Imm Gran Abs Auto 0.11 X10*3/uL (0.00-0.03); Imm Gran Pct Auto 0.6 % (0.0-0.4); Lymphocytes Absolute Auto 0.6 X10*3/uL (1.2-4.9); Lymphocytes Percent Auto 3.2 % (20-40); MANUAL DIFF FLAG SCAN; Mean Corpuscular HGB Conc 33.2 g/dl (31.0-36.0); Mean Corpuscular Hemoglobin 29.7 pg (27.0-33.0); Mean Corpuscular Volume 89.4 fL (80.0-98.0); Monocytes Absolute Auto 1.7 X10*3/uL (0.1-1.2); Monocytes Percent Auto 9.8 % (2-11); Neutrophils Absolute Auto 15.2 x10*3/uL (2.0-8.3); Neutrophils Percent Auto 85.4 % (45-73); Platelet Count 171 X10*3/uL (160-400); Red Blood Count 4.89 X10*6/uL (4.60-5.80); Red Cell Distribution Width 13.6 % (11.0-16.0); SCAN SMEAR FLAG 1; White Blood Count 17.7 X10*3/uL (4.8-10.8)
[2021-07-13] MEDS: Dextrose 5 % and 0.45 % NaCl 1,000 ML 50 ML IVCONT (07:13)
[2021-07-13 07:26] LABS: Anion Gap 19 (12-20); Blood Urea Nitrogen 16 mg/dL (9-16); Carbon Dioxide 18 mmol/L (22-29); Chloride 105 mmol/L (96-108); Creatinine Clr Calc Pharmacy 74.6; Estimated Glomerular Filt Rate > 60; Glucose Random 188 mg/dL (60-115); Sodium 138 mmol/L (135-145)
[2021-07-13 07:28] LABS: Alanine Aminotransferase 381 U/L (0-40); Albumin Level 3.5 g/dL (3.5-5.0); Alkaline Phosphatase 249 U/L (39-117); Aspartate Amino Transferase 346 U/L (5-37); Bilirubin Direct 3.4 mg/dL (0.0-0.5); Bilirubin Total 3.8 mg/dL (0.0-1.0); Total Protein 5.7 g/dL (6.5-8.0)
--- NOTE | 2021-07-13 07:29 | PC.NURSE ---
REPORT GIVEN TO BINTA CALHOUN.
[2021-07-13 07:32] LABS: Calcium 9.3 mg/dL (8.4-10.2)
[2021-07-13 07:38] LABS: Glucose, Whole Blood 181 mg/dL (60-115)
[2021-07-13 08:20] LABS: SLIDE REVIEW VERIFIED
--- NOTE | 2021-07-13 09:01 | PHA.MEDREC ---
Pharmacy Consult ? Medication Reconciliation Pharmacy has completed the medication reconciliation. There are no remarkable issuses for cardiac sonographer's attention. Rehana Ibrahim, PharmD
--- NOTE | 2021-07-13 09:24 | P.CONGS_ITS ---
History of Present Illness Consult details Consult date: 07/13/21 <ALTAGRACIA Gibson Last Filed: 07/13/21 09:51> Reason for consult: gallstones <ALTAGRACIA Gibson Last Filed: 07/13/21 09:51> Requesting physician: Colby Negron <ALTAGRACIA Gibson Last Filed: 07/13/21 09:51> Narrative: Patient seen with his city collector. 71-year-old male with multiple medical comorbidities including hypertension, diabetes, coronary artery disease status post CABG, history of Alzheimer's dementia who presented to the ED with a complaint of right upper quadrant abdominal pain. He reports he had his first episode of pain Monday. He came to ED and a CT scan abd was performed which demonstrated the gallstones without evidence of acute cholecystitis. His pain resolved and he was sent home with instructions to f/u with General Surgery. However, last night he had a steak dinner and the pain recurred in the RUQ/epigastric area during the night. It was sharp and constant in nature. He denies radiation of the pain or back pain. It was associated with nausea/vomiting and subjective fevers. He denies changes in skin color, urine or stool color. He called the ambulance and was brought back to the ED where work up included an ABD US which demonstrated a distended gallbladder is distended with gallstones and mild gallbladder wall thickening. He also had a leukocytosis of 17.7 and elevated liver enzymes with a total/direct bili of 4.1/3.5, AST/ALT 654/542, alk phos of 333 and lipase of 215. The patient denies prior episodes of similar pain before Monday night. He feels a little improved this morning following pain medication. The patient reports a history of a gastric bypass 4 years ago in [place]. <ALTAGRACIA Gibson Last Filed: 07/13/21 09:51> Review of Systems Constitutional: Constitutional: Denies chills, Reports fever(s) and Denies weakness <ALTAGRACIA Gibson Last Filed: 07/13/21 09:51> Eyes: Eyes: Denies blurry vision <ALTAGRACIA Gibson Filed: 07/13/21 09:51> ENT: Denies dizziness <hSilpa Figueroa PA-C - Last Filed: 07/13/21 09:51> Cardiovascular: Cardiovascular: Denies chest pain, Denies palpitations and Denies dyspnea <Shilpa Figueroa PA-C - Last Filed: 07/13/21 09:51> Respiratory: Respiratory: Denies cough and Denies dyspnea <Shilpa Figueroa PA-C - Last Filed: 07/13/21 09:51> Gastrointestinal: Gastrointestinal: Reports as per HPI <Shilpa Figueroa PA-C - Last Filed: 07/13/21 09:51> Genitourinary: Genitourinary: Denies hematuria and Denies dysuria <Shilpa Figueroa PA-C - Last Filed: 07/13/21 09:51> Integumentary/Breasts: Skin/Breast: Denies change in pigmentation and Denies rash <Shilpa Figueroa PA-C - Last Filed: 07/13/21 09:51> Neurologic: Denies dizziness and Denies weakness <Shilpa Figueroa PA-C - Last Filed: 07/13/21 09:51> Endocrine: Endocrine: Denies palpitations <Shilpa Figueroa PA-C - Last Filed: 07/13/21 09:51> PMFSH Past Medical History Medical History: Medical History (Updated 07/13/21 @ 09:44 by Shilpa Figueroa PA-C) Diabetes <Shilpa Figueroa PA-C - Last Filed: 07/13/21 09:51> Surgical History Surgical History: Surgical History (Updated 07/13/21 @ 09:41 by Shilpa Figueroa PA-C) History of [place]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 <Shilpa Figueroa PA-C - Last Filed: 07/13/21 09:51> Social History Social History: Social History Alcohol intake: former Patient Tobacco Use Status: Never used Tobacco Substance Use Type: Other Advance Directives: No <Shilpa Figueroa PA-C - Last Filed: 07/13/21 09:51> Meds Allergies/Adverse reactions: Allergies Allergy/AdvReac Type Severity Reaction Status Date / Time No Known Allergies Allergy Verified 06/20/21 22:50 <Shilpa Figueroa PA-C - Last Filed: 07/13/21 09:51> Active Medications: Current Medications Dextrose (Dextrose 50 % 25 Gm/50 Ml Vial) 25 gm IVPUSH Q15M PRN; Protocol PRN Reason: per Hypoglycemia Standing Ord. Glucose (Glucose Gel 15 Gm Gel..Gram.) 15 gm PO Q15M PRN; Protocol PRN Reason: per Hypoglycemia Standing Ord. Hydromorphone HCl (Hydromorphone Hcl 0.5 Mg/0.5 Ml Syringe) 0.5 mg IVPUSH Q4H PRN; Protocol PRN Reason: Pain, Severe (Pain Scale 7-10) Ceftriaxone Sodium 1 gm/ (Sodium Chloride) 50 mls @ 100 mls/hr IV Q24H [facility] Last Admin: 07/13/21 04:53 Dose: Not Given Documented by: Metronidazole (Flagyl) 500 mg in 100 mls @ 100 mls/hr IV Q8H [facility] Last Admin: 07/13/21 06:09 Dose: 100 mls/hr Documented by: Dextrose/Sodium Chloride (D51/2ns) 1,000 mls @ 50 mls/hr IVCONT .Q20H [facility] Last Admin: 07/13/21 07:13 Dose: 50 mls/hr Documented by: Insulin Human Lispro (Insulin Lispro 100 Unit/Ml 3 Ml Vial) 0.1 - 10 unit SUBCUT QIDACHS [facility]; Protocol Last Admin: 07/13/21 09:16 Dose: Not Given Documented by: Melatonin (Melatonin 3 Mg Tablet) 6 mg PO BEDTIME PRN PRN Reason: Insomnia Pharmacy Consult (Consult Rx Perform Med Rec) 1 each MISCELLANE ONCE PRN PRN Reason: Consult order Sodium Chloride (0.9 % Sodium Chloride Flush 3 Ml Syringe) 3 ml IVFLUSH QSHIFT [facility] Last Admin: 07/13/21 09:16 Dose: Not Given Documented by: <Shilpa Figueroa PA-C - Last Filed: 07/13/21 09:51> Home medications: Home Medications Medication Instructions Recorded Confirmed Last Taken Type donepezil 10 mg tablet 1 tab PO DAILY 07/12/21 07/13/21 07/12/21 History empagliflozin 25 mg tablet 1 tab PO DAILY 07/12/21 07/13/21 07/12/21 History (Jardiance) ezetimibe 10 mg-simvastatin 80 mg 1 tab PO BEDTIME 07/12/21 07/13/21 07/12/21 History tablet glimepiride 4 mg tablet 1 tab PO BID 07/12/21 07/13/21 07/12/21 History insulin aspart U-100 100 unit/mL See Protocol 07/12/21 07/13/21 07/12/21 History (3 mL) subcutaneous pen (Novolog Flexpen U-100 Insulin aspart) insulin glargine U-300 conc 300 49 unit SUBCUT DAILY 07/12/21 07/13/21 07/12/21 History unit/mL (1.5 mL) subcutaneous pen (Toujeo SoloStar U-300 Insulin) pantoprazole 40 mg tablet,delayed 1 tab PO DAILY 07/12/21 07/13/21 07/12/21 History release ascorbic acid (vitamin C) 500 mg 250 mg PO DAILY 07/13/21 07/13/21 07/12/21 History tablet (Vitamin C) calcium carbonate 500 mg calcium 1,000 mg PO BID 07/13/21 07/13/21 07/12/21 History (1,250 mg) tablet (Calcium 500) cholecalciferol (vitamin D3) 25 25 mcg PO DAILY 07/13/21 07/13/21 07/12/21 History mcg (1,000 unit) tablet (Vitamin D3) cyanocobalamin (vitamin B-12) 1,000 mcg PO DAILY 07/13/21 07/13/21 07/12/21 History 1,000 mcg tablet duloxetine 60 mg capsule,delayed 60 mg PO BID 07/13/21 07/13/21 07/12/21 History release losartan 50 mg tablet 1 tab PO DAILY 07/13/21 07/13/21 07/12/21 History memantine 10 mg tablet 10 mg PO BID 07/13/21 07/13/21 Unknown History metoprolol succinate 50 mg 1 tab PO DAILY 07/13/21 07/13/21 07/12/21 History tablet,extended release 24 hr <ALTAGRACIA Gibson Last Filed: 07/13/21 09:51> Physical Exam Vital Signs: Vital Signs: Last Vital Signs Temp 98.8 F 07/13/21 02:42 Pulse 104 H 07/13/21 02:42 Resp 20 07/13/21 02:42 BP 150/80 H 07/13/21 02:42 Pulse Ox 95 07/13/21 02:42 Body Mass Index 36.0 <Shilpa Figueroa PA-C - Last Filed: 07/13/21 09:51> Const: General: well developed and alert; No acute distress <Shilpa Figueroa PA-C Jose Last Filed: 07/13/21 09:51> Eyes: Sclerae: sclerae normal <DARRON Gibson Last Filed: 07/13/21 09:51> Resp: Effort & Inspection: normal respiratory effort <DARRON Gibson Yamli Last Filed: 07/13/21 09:51> Cardio: Rate: tachycardic <DARRON Gibson Last Filed: 07/13/21 09:51> GI: Inspection: No distended, Yes incision (well healed laparoscopic scars in upper abdomen) and Yes obesity <Shilpa Figueroa PA-C Last Filed: 07/13/21 09:51> Palpation (GI): Soft to palpation, Tenderness to palpation present (GI) (significant RUQ tenderness) Whipple's sign positive, no guarding and not rigid <Shilpa Figueroa PA-C Jose Last Filed: 07/13/21 09:51> Percussion: Yes normal to percussion <Shilpa Figueroa PA-C Yamli Last Filed: 07/13/21 09:51> Skin: General skin exam: no rashes or lesions noted and no jaundice <Shilpa Figueroa PA-C Last Filed: 07/13/21 09:51> Neuro: Other: alert to person and place <Shilpa Figueroa PA-C Jose Last Filed: 07/13/21 09:51> Extrem: General: Yes no clubbing, cyanosis or edema <Shilpa Figueroa PA-C - Last Filed: 07/13/21 09:51> Results Labs Result diagrams: : 07/13/21 06:47 07/13/21 06:47 <Shilpa Figueroa PA-C - Last Filed: 07/13/21 09:51> Labs: Abnormal lab results 07/13/21 07/13/21 07/13/21 Range/Units 01:26 01:28 04:09 WBC 16.5 H (4.8-10.8) X10*3/uL RBC 5.87 H (4.60-5.80) X10*6/uL Hct 53.0 H (42.0-52.0) % Immature Gran % (Auto) (0.0-0.4) % Neut % (Auto) 82.7 H (45-73) % Lymph % (Auto) 9.0 L (20-40) % Lymph # (Auto) (1.2-4.9) X10*3/uL [place] # (Auto) (0.1-1.2) X10*3/uL Abs Immat Gran (auto) 0.06 H (0.00-0.03) X10*3/uL Absolute Neuts (auto) 13.7 H (2.0-8.3) x10*3/uL Carbon Dioxide 20 L (22-29) mmol/L Anion Gap 23 H (12-20) BUN 17 H (9-16) mg/dL POC Glucose (60-115) mg/dL Random Glucose 244 H (60-115) mg/dL Calcium 10.7 H D (8.4-10.2) mg/dL Total Bilirubin 4.1 H (0.0-1.0) mg/dL Direct Bilirubin 3.5 H (0.0-0.5) mg/dL AST 654 H (5-37) U/L ALT 542 H (0-40) U/L Alkaline Phosphatase 333 H D (39-117) U/L Total Protein (6.5-8.0) g/dL Lipase 215 H (8-78) U/L Urine Glucose (UA) >=1000 H (NEG) MG/DL 07/13/21 07/13/21 07/13/21 Range/Units 06:47 06:47 06:47 WBC 17.7 H (4.8-10.8) X10*3/uL RBC (4.60-5.80) X10*6/uL Hct (42.0-52.0) % Immature Gran % (Auto) 0.6 H (0.0-0.4) % Neut % (Auto) 85.4 H (45-73) % Lymph % (Auto) 3.2 L (20-40) % Lymph # (Auto) 0.6 L (1.2-4.9) X10*3/uL [place] # (Auto) 1.7 H (0.1-1.2) X10*3/uL Abs Immat Gran (auto) 0.11 H (0.00-0.03) X10*3/uL Absolute Neuts (auto) 15.2 H (2.0-8.3) x10*3/uL Carbon Dioxide 18 L (22-29) mmol/L Anion Gap (12-20) BUN (9-16) mg/dL POC Glucose (60-115) mg/dL Random Glucose 188 H (60-115) mg/dL Calcium (8.4-10.2) mg/dL Total Bilirubin 3.8 H (0.0-1.0) mg/dL Direct Bilirubin 3.4 H (0.0-0.5) mg/dL AST 346 H (5-37) U/L ALT 381 H (0-40) U/L Alkaline Phosphatase 249 H D (39-117) U/L Total Protein 5.7 L D (6.5-8.0) g/dL Lipase (8-78) U/L Urine Glucose (UA) (NEG) MG/DL 07/13/21 Range/Units 07:32 WBC (4.8-10.8) X10*3/uL RBC (4.60-5.80) X10*6/uL Hct (42.0-52.0) % Immature Gran % (Auto) (0.0-0.4) % Neut % (Auto) (45-73) % Lymph % (Auto) (20-40) % Lymph # (Auto) (1.2-4.9) X10*3/uL [place] # (Auto) (0.1-1.2) X10*3/uL Abs Immat Gran (auto) (0.00-0.03) X10*3/uL Absolute Neuts (auto) (2.0-8.3) x10*3/uL Carbon Dioxide (22-29) mmol/L Anion Gap (12-20) BUN (9-16) mg/dL POC Glucose 181 H (60-115) mg/dL Random Glucose (60-115) mg/dL Calcium (8.4-10.2) mg/dL Total Bilirubin (0.0-1.0) mg/dL Direct Bilirubin (0.0-0.5) mg/dL AST (5-37) U/L ALT (0-40) U/L Alkaline Phosphatase (39-117) U/L Total Protein (6.5-8.0) g/dL Lipase (8-78) U/L Urine Glucose (UA) (NEG) MG/DL Short CBC 07/13/21 07/13/21 Range/Units 01:28 06:47 WBC 16.5 H 17.7 H (4.8-10.8) X10*3/uL Hgb 17.5 14.5 (14.0-18.0) g/dl Hct 53.0 H 43.7 (42.0-52.0) % Plt Count 200 171 (160-400) X10*3/uL BMP 07/13/21 07/13/21 01:26 06:47 Sodium 137 138 Potassium 4.3 4.0 Chloride 98 105 Carbon Dioxide 20 L 18 L BUN 17 H 16 Creatinine 1.21 1.03 Calcium 10.7 H D 9.3 D Liver Function 07/13/21 07/13/21 Range/Units 01:26 06:47 Total Bilirubin 4.1 H 3.8 H (0.0-1.0) mg/dL Direct Bilirubin 3.5 H 3.4 H (0.0-0.5) mg/dL AST 654 H 346 H (5-37) U/L ALT 542 H 381 H (0-40) U/L Alkaline Phosphatase 333 H D 249 H D (39-117) U/L Albumin 4.7 3.5 D (3.5-5.0) g/dL Urine 07/13/21 Range/Units 04:09 Urine Color YELLOW Urine Appearance CLEAR Urine pH 6.0 (5.0-8.0) Ur Specific [place] 1.020 (1.005-1.025) Urine Protein TRACE (NEG-TRACE) MG/DL Urine Glucose (UA) >=1000 H (NEG) MG/DL All other labs normal. <Shilpa Figueroa PA-C - Last Filed: 07/13/21 09:51> Assessment and Plan (1) Acute calculous cholecystitis: Status: Acute <Shilpa Figueroa PA-C - Last Filed: 07/13/21 09:51> (2) Diabetes: Status: Acute <Shilpa Figueroa PA-C - Last Filed: 07/13/21 09:51> (3) Elevated liver enzymes: Status: Acute <Shilpa Figueroa PA-C - Last Filed: 07/13/21 09:51> Patient seen and examined earlier this morning History reviewed Abdomen mildly tender in the epigastric area CT scan showing gallstones, some wall thickening Bilirubin however markedly elevated Overall picture suggestive of CBD stone MRCP ordered Plan to do cholecystectomy eventually once LFTs are much improved and CBD cleared Explained plan to patient is daughter at bedside Agree with GUERA Figueroa <Karel Padilla MD - Last Filed: 07/13/21 12:10> 71-year-old male with multiple medical comorbidities including hypertension, diabetes, coronary artery disease status post CABG, history of Alzheimer's dementia who presented to the ED with a complaint of right upper sophia drant abdominal pain. He was found to have RUQ tenderness and distended gallbladder with gallstones and gallbladder wall thickening on ABD US. There was no note of dilated intra or extrahepatic ducts but he does have significantly elevated LFTs without evidence of liver disease on imaging. He also has an elevated lipase which further suggests CBD obstruction possibly secondary to gallstone. Will obtain MRCP. He has a GI consult already ordered. The patient does have a history of gastric bypass so I am unsure if ERCP could be performed here if there was evidence of CBD obstruction on MRCP, but will leave that to GI. If no CBD obstruction found, discussed proceeding with laparoscopic cholecystectomy possible open once his bilirubin normalizes to prevent recurrence. Can continue supportive measures for now of IV antibiotics, IVF. Would keep NPO for now and then can advance to clears if no obstruction found while his labs correct. Patient and his caregiver understand and agree with plan. All questions answered. Patient discussed with Dr. Padilla. <Shilpa Figueroa PA-C - Last Filed: 07/13/21 09:51> Procedures Date of Service Date of Service: 07/13/21 <Shilpa Figueroa PA-C - Last Filed: 07/13/21 09:51>
--- NOTE | 2021-07-13 11:20 | PC.NURSE ---
PT IN MRI
[2021-07-13 12:14] VITALS: BP 157/71; PULSE 68; RESP 15; O2SAT 97
[2021-07-13 12:25] LABS: Glucose, Whole Blood 144 mg/dL (60-115)
--- NOTE | 2021-07-13 13:17 | P.EN_ITS ---
Event Note Date of Service: 07/13/21 Event Note: 71-year-old male with a past medical history of hypertension, hype rlipidemia, diabetes, coronary artery disease status post CABG, obesity, KATINA on CPAP, history of Alzheimer's dementia presented to the hospital with a chief complaint of right upper quadrant abdominal pain/noted to have acute cholecystitis/gallstones/transaminitis.? Admitted for further management.? Acute cholecystitis/gallstones Patient on IV ceftriaxone and Flagyl.? Follow up cultures.? Seen and examined by General surgery, MRCP done, will await on procedure until bili goes down Acute transaminitis secondary to acute cholecystitis Trend liver enzymes.? Gastroenterology consult. Diabetes Insulin sliding scale History of hypertension/hyperlipidemia/CAD status post CABG Continue home medications except for aspirin in anticipation for procedure. Hold statin given transaminitis. DVT prophylaxis: SCD boots Code status: Full code Attending Dr. Up
--- NOTE | 2021-07-13 14:42 | PM.EVENT ---
Event Note Date of Service: 07/13/21 Event Note: MRCP does not show CBD obstruction Follow LFTs closely Continue with IV antibiotics Okay to have clear liquids Plan to eventually proceed with cholecystectomy once LFTs are near normal Likely to have passed stone or sludge Discussed with patient and his daughter
[2021-07-13 16:57] VITALS: BP 148/65; PULSE 84; RESP 22; TEMP 36.8; O2SAT 91
--- NOTE | 2021-07-13 17:37 | MHC.CM.PN ---
Addendum entered by Gina Piedra 07/13/21 17:53: Pt also has [employer] services through [facility]. Original Note: CM met with admitted patient with bed assignment pending. A&Ox3. IMM reviewed and signed per protocol 07/13/2021@1725. HCP not on file. HCP/daughter/POA Bre Cooper ([phone]). Copy requested. Fully vaccinated with J&J 12/2020. PCP is Dr. Pulido. Pt is independent in elderly housing. [facility] and CPAP and Meals on Wheels for 3 meals a week ([facility]). D/C plan is home without services, may need VNA pending hospital course. Transportation provided by daughter. CM to follow for d/c needs.
[2021-07-13] MEDS: HYDROmorphone HCl 0.5 MG/0.5 ML SYRINGE IVPUSH (21:44)
[2021-07-13 21:53] LABS: Glucose, Whole Blood 126 mg/dL (60-115)
[2021-07-13 21:53] LABS: Glucose, Whole Blood 124 mg/dL (60-115)
[2021-07-13 23:37] VITALS: BP 112/70; PULSE 82; RESP 16; TEMP 37.2; O2SAT 89
[2021-07-14] VITALS (8 sets, daily range): BP systolic 117–160; BP diastolic 63–88; PULSE 61–76; RESP 18–20; TEMP 36.4–37.6; O2SAT 92–98; BMI 36.6
--- NOTE | 2021-07-14 00:50 | CONS_ITS ---
DATE OF SERVICE: 07/13/2021 REFERRING PHYSICIAN: Colby Negron MD REASON FOR CONSULTATION: Gallstones and elevated liver function tests. HISTORY OF PRESENT ILLNESS: The patient is a pleasant 71-year-old man seen today in consultation because of problems with elevated liver function tests, abdominal pain, and gallstones. He has a history of gallstones, which have been asymptomatic in the past, but he presented to the emergency room with complaints of several days of intermittent right upper quadrant pain with nausea. He was evaluated in the emergency department with laboratory studies, which showed a white blood cell count of 14.6, and subsequently had chemistries revealing mild elevations of his liver function tests, which were subsequently noted to worsen, his bilirubin on the was normal at 0.6 and earlier today was 4.1, it subsequently dropped to 3.8. Other liver function tests were also elevated including transaminases and alkaline phosphatases, which are subsequently improving. Imaging studies have included CT scanning, ultrasound imaging and MRCP, which have shown normal common duct with no evidence of a retained common bile duct stone. He has been seen in consultation by Dr. Padilla for eventual cholecystectomy. PAST MEDICAL HISTORY: 1. Gallstones as above. 2. Dementia. 3. Hypertension. 4. Hyperlipidemia. 5. Diabetes. 6. Sleep apnea for which he uses CPAP. 7. Coronary artery disease with bypass grafting. 8. Gastric bypass surgery. CURRENT MEDICATIONS: Current medication list is reviewed in the chart. ALLERGIES: THERE ARE NONE REPORTED. FAMILY HISTORY: This is reviewed with the patient and is noncontributory. SOCIAL HISTORY: There is no current tobacco or alcohol intake. REVIEW OF SYSTEMS: This is not reliably obtainable. PHYSICAL EXAMINATION: GENERAL: Shows a pleasant male. He is interviewed with his daughter in the emergency department. VITAL SIGNS: Reviewed in the electronic medical record and are stable. SKIN: Anicteric. HEENT: Shows no scleral icterus. NECK: Without lymphadenopathy or thyromegaly. LUNGS: Clear. HEART: Shows a regular rate and rhythm. S1, S2. No murmur. ABDOMEN: Soft without focal masses or tenderness. Bowel sounds are present. There is some mild sensitivity to palpation in the right upper quadrant. There is no guarding or rebound. EXTREMITIES: Without edema. LABORATORY DATA: Reviewed his CT scan, MRI and ultrasound. IMPRESSION: Elevated liver function tests in the setting of gallstones and right upper quadrant pain. Imaging has shown no evidence of retained common bile duct stone, but based on his presentation, it is likely he passed a small stone or some sludge. Liver function tests appear to be improving. He has been seen in consultation because of cholecystitis and is on antibiotics, and I would recommend continuing these at this time. I discussed ERCP with the family prior to his MRI. This would be technically difficult based on his anatomy from his previous gastric bypass. Thanks for asking me to see him. I will follow him in the hospital with you. MD LUANN Murry/EB / [phone]
--- NOTE | 2021-07-14 00:59 | PC.NURSE ---
1st attempt made to call report to floor. RN awaiting call back as RN in with a patient
--- NOTE | 2021-07-14 01:22 | PC.NURSE ---
report provided to Yue CALHOUN
[2021-07-14] MEDS: 0.9 % Sodium Chloride Flush 3 ML SYRINGE IVFLUSH ×2 (01:50→23:45)
[2021-07-14] MEDS: HYDROmorphone HCl 0.5 MG/0.5 ML SYRINGE IVPUSH ×5 (02:10→23:44)
[2021-07-14] MEDS: cefTRIAXone sodium 1 GM in 0.9 % Sodium Chloride 50 ML IV (04:51)
[2021-07-14] MEDS: metroNIDAZOLE/NS 500 MG/100 ML PIGGYBACK 100 MG IV ×3 (06:43→20:14)
[2021-07-14 06:52] LABS: Hematocrit 42.5 % (42.0-52.0); Hemoglobin 13.8 g/dl (14.0-18.0); Mean Corpuscular HGB Conc 32.5 g/dl (31.0-36.0); Mean Corpuscular Hemoglobin 29.4 pg (27.0-33.0); Mean Corpuscular Volume 90.4 fL (80.0-98.0); Mean Platelet Volume 11.1 fL (9.4-12.4); Platelet Count 146 X10*3/uL (160-400); Red Cell Distribution Width 14.1 % (11.0-16.0); White Blood Count 9.6 X10*3/uL (4.8-10.8)
[2021-07-14 07:07] LABS: Anion Gap 18 (12-20); Blood Urea Nitrogen 17 mg/dL (9-16); Calcium 8.5 mg/dL (8.4-10.2); Carbon Dioxide 19 mmol/L (22-29); Chloride 104 mmol/L (96-108); Estimated Glomerular Filt Rate > 60; Glucose Random 129 mg/dL (60-115); Potassium 3.6 mmol/L (3.3-5.1); Sodium 137 mmol/L (135-145)
[2021-07-14] MEDS: Dextrose 5 % and 0.45 % NaCl 1,000 ML 50 ML IVCONT (07:37)
[2021-07-14 07:38] LABS: Glucose, Whole Blood 117 mg/dL (60-115)
[2021-07-14 08:03] LABS: Alanine Aminotransferase 276 U/L (0-40); Albumin Level 3.4 g/dL (3.5-5.0); Alkaline Phosphatase 275 U/L (39-117); Aspartate Amino Transferase 172 U/L (5-37); Bilirubin Direct 4.2 mg/dL (0.0-0.5); Bilirubin Total 4.8 mg/dL (0.0-1.0); Total Protein 5.6 g/dL (6.5-8.0)
--- NOTE | 2021-07-14 09:15 | P.PNGS_ITS ---
Subjective Subjective Date of Service: 07/14/21 <Shilpa Figueroa PA-C - Last Filed: 07/14/21 09:19> 07/14/21 <Karel Padilla MD - Last Filed: 07/14/21 12:06> Interval history: Feels better this morning. Has persistent pain in RUQ but relieved with medications. <Shilpa Figueroa PA-C - Last Filed: 07/14/21 09:19> Physical Exam Vital Signs: Vital Signs: Last Vital Signs Temp 99.6 F 07/14/21 08:00 Pulse 76 07/14/21 08:00 Resp 20 07/14/21 08:00 BP 117/75 07/14/21 08:00 Pulse Ox 93 07/14/21 08:00 Body Mass Index 36.6 <Shilpa Figueroa PA-C - Last Filed: 07/14/21 09:19> Const: General: comfortable, no acute distress and alert <Shilpa Figueroa PA-C - Last Filed: 07/14/21 09:19> Orientation/consciousness: patient oriented x3 <Shilpa Figueroa PA-C - Last Filed: 07/14/21 09:19> Eyes: Sclerae: scleral abnormal (icteric) <Shilpa Figueroa PA-C - Last Filed: 07/14/21 09:19> Resp: Effort & Inspection: normal respiratory effort <Shilpa Figueroa PA-C - Last Filed: 07/14/21 09:19> GI: Inspection: No distended and Yes obesity <Shilpa Figueroa PA-C - Last Filed: 07/14/21 09:19> Palpation (GI): Soft to palpation, Tenderness to palpation present (GI) (RUQ), no guarding and not rigid <Shilpa Figueroa PA-C - Last Filed: 07/14/21 09:19> Percussion: Yes normal to percussion <ALTAGRACIA Gibson Last Filed: 07/14/21 09:19> Skin: General skin exam: no rashes or lesions noted <ALTAGRACIA Gibson Last Filed: 07/14/21 09:19> Neuro: General: patient oriented x3 <Shilpa Figueroa PA-C - Last Filed: 07/14/21 09:19> Objective Data Active Medications Dextrose (Dextrose 50 % 25 Gm/50 Ml Vial) 25 gm IVPUSH Q15M PRN; Protocol PRN Reason: per Hypoglycemia Standing Ord. Glucose (Glucose Gel 15 Gm Gel..Gram.) 15 gm PO Q15M PRN; Protocol PRN Reason: per Hypoglycemia Standing Ord. Hydromorphone HCl (Hydromorphone Hcl 0.5 Mg/0.5 Ml Syringe) 0.5 mg IVPUSH Q4H PRN; Protocol PRN Reason: Pain, Severe (Pain Scale 7-10) Last Admin: 07/14/21 07:42 Dose: 0.5 mg Documented by: KETURAH Ceftriaxone Sodium 1 gm/ (Sodium Chloride) 50 mls @ 100 mls/hr IV Q24H [facility] Last Infusion: 07/14/21 05:56 Dose: 0 mls/hr Documented by: ЮЛИЯ Metronidazole (Flagyl) 500 mg in 100 mls @ 100 mls/hr IV Q8H [facility] Last Infusion: 07/14/21 07:55 Dose: 0 mls/hr Documented by: KETURAH Dextrose/Sodium Chloride (D51/2ns) 1,000 mls @ 50 mls/hr IVCONT .Q20H [facility] Last Admin: 07/14/21 07:37 Dose: 50 mls/hr Documented by: KETURAH Insulin Human Lispro (Insulin Lispro 100 Unit/Ml 3 Ml Vial) 0.1 - 10 unit SUBCUT QIDACHS [facility]; Protocol Last Admin: 07/14/21 07:39 Dose: Not Given Documented by: KETURAH Non-Admin Reason: No Insulin Coverage Melatonin (Melatonin 3 Mg Tablet) 6 mg PO BEDTIME PRN PRN Reason: Insomnia Pharmacy Consult (Consult Rx Perform Med Rec) 1 each MISCELLANE ONCE PRN PRN Reason: Consult order Sodium Chloride (0.9 % Sodium Chloride Flush 3 Ml Syringe) 3 ml IVFLUSH QSHIFT [facility] Last Admin: 07/14/21 07:39 Dose: Not Given Documented by: KETURAH Non-Admin Reason: IV Running <Shilpa Figueroa PA-C - Last Filed: 07/14/21 09:19> Labs CBC & Chem 7: : 07/14/21 05:53 07/14/21 05:53 <Shilpa Figueroa PA-C - Last Filed: 07/14/21 09:19> Labs: Laboratory Results - last 24 hr 07/13/21 07/13/21 07/13/21 12:20 17:08 21:39 MCV MCH MCHC RDW Plt Count MPV Absolute Nucleated RBC Nucleated RBC % (auto) Anion Gap Estim Creat Clear Calc Estimated GFR POC Glucose 144 H 124 H 126 H Random Glucose Calcium Total Bilirubin Direct Bilirubin AST ALT Alkaline Phosphatase Total Protein Albumin 07/14/21 07/14/21 07/14/21 05:53 05:53 07:27 MCV 90.4 MCH 29.4 MCHC 32.5 RDW 14.1 Plt Count 146 L MPV 11.1 Absolute Nucleated RBC 0.000 Nucleated RBC % (auto) 0.0 Anion Gap 18 Estim Creat Clear Calc 79.0 Estimated GFR > 60 POC Glucose 117 H Random Glucose 129 H Calcium 8.5 D Total Bilirubin 4.8 H Direct Bilirubin 4.2 H AST 172 H ALT 276 H Alkaline Phosphatase 275 H Total Protein 5.6 L Albumin 3.4 L <Shilpa Figueroa PA-C - Last Filed: 07/14/21 09:19> Microbiology Microbiology Results: Microbiology 07/13/21 04:14 Blood Culture - Preliminary Blood - Venous No growth after 24 hours. 07/13/21 04:08 Blood Culture - Preliminary Blood - Venous Prelim: GNR Gram Stain only <Shilpa Figueroa PA-C - Last Filed: 07/14/21 09:19> Procedures Date of Service Date of Service: 07/14/21 <Shilpa Figueroa PA-C - Last Filed: 07/14/21 09:19> Progress Note: A&P Assessment and plan (1) Elevated liver enzymes: Status: Acute <Shilpa Figueroa PA-C - Last Filed: 07/14/21 09:19> Assessment and Plan: He feels better compared to yesterday Less pain Abdomen remained soft Mild tenderness Bilirubin worsening MRCP yesterday does not show any CBD filling defect May be passing stones again Will hold off on cholecystectomy until bilirubin normalizes Not septic looking Daughter Robyn updated at bedside Continue IV antibiotics Seen and examined independently <Karel Padilla MD - Last Filed: 07/14/21 12:06> (2) Acute calculous cholecystitis: Status: Acute <Shilpa Figueroa PA-C - Last Filed: 07/14/21 09:19> Assessment and Plan: 71 year old male admitted with acute calculous cholecystitis with elevated LFTs. MRCP yesterday negative for filling defect. His transaminases are improving however bilirubin is trending up. No evidence of mirizzi syndrome on imaging. Will await GI input. Cont IV abx for now. Once bili improves significantly, plan for CCY. Diet as tolerated. Patient comfortable with plan. <Shilpa Figueroa PA-C - Last Filed: 07/14/21 09:19> Fall Risk Details Current Medications: Current Medications Dextrose (Dextrose 50 % 25 Gm/50 Ml Vial) 25 gm IVPUSH Q15M PRN; Protocol PRN Reason: per Hypoglycemia Standing Ord. Glucose (Glucose Gel 15 Gm Gel..Gram.) 15 gm PO Q15M PRN; Protocol PRN Reason: per Hypoglycemia Standing Ord. Hydromorphone HCl (Hydromorphone Hcl 0.5 Mg/0.5 Ml Syringe) 0.5 mg IVPUSH Q4H PRN; Protocol PRN Reason: Pain, Severe (Pain Scale 7-10) Last Admin: 07/14/21 07:42 Dose: 0.5 mg Documented by: Ceftriaxone Sodium 1 gm/ (Sodium Chloride) 50 mls @ 100 mls/hr IV Q24H [facility] Last Infusion: 07/14/21 05:56 Dose: Infused Documented by: Metronidazole (Flagyl) 500 mg in 100 mls @ 100 mls/hr IV Q8H [facility] Last Infusion: 07/14/21 07:55 Dose: Infused Documented by: Dextrose/Sodium Chloride (D51/2ns) 1,000 mls @ 50 mls/hr IVCONT .Q20H [facility] Last Admin: 07/14/21 07:37 Dose: 50 mls/hr Documented by: Insulin Human Lispro (Insulin Lispro 100 Unit/Ml 3 Ml Vial) 0.1 - 10 unit SUBCUT QIDACHS [facility]; Protocol Last Admin: 07/14/21 07:39 Dose: Not Given Documented by: Melatonin (Melatonin 3 Mg Tablet) 6 mg PO BEDTIME PRN PRN Reason: Insomnia Pharmacy Consult (Consult Rx Perform Med Rec) 1 each MISCELLANE ONCE PRN PRN Reason: Consult order Sodium Chloride (0.9 % Sodium Chloride Flush 3 Ml Syringe) 3 ml IVFLUSH QSHIFT [facility] Last Admin: 07/14/21 07:39 Dose: Not Given Documented by: <Shilpa Figueroa PA-C - Last Filed: 07/14/21 09:19> Time Spent With Patient Time: Total time spent is greater than 50% in coordination of care (as d ocumented) at patient's floor/unit and/or counseling patient: <Shilpa Figueroa PA-C - Last Filed: 07/14/21 09:19> Time with patient: 15 - 24 minutes <Shilpa Figueroa PA-C - Last Filed: 07/14/21 09:19> Quality Stroke Does the patient have a stroke diagnosis?: No <Shilpa Figueroa PA-C - Last Filed: 07/14/21 09:19> VTE Prior VTE?: No <Shilpa Figueroa PA-C - Last Filed: 07/14/21 09:19> VTE Risk Level:: Medical - moderate - high <ALTAGRACIA Gibson Last Filed: 07/14/21 09:19> VTE Device Contraindication: N/A - Device Ordered <Shilpa Figueroa PA-C - Last Filed: 07/14/21 09:19> VTE Drug Contraindication: Treatment Not Indicated <Shilpa Figueroa PA-C - Last Filed: 07/14/21 09:19>
--- NOTE | 2021-07-14 09:17 | MHC.CM.PN ---
IMM 07/14/21 Male 71 DX Cholecystitis. DP Home with services thru [facility]. MOLD CARRIER and WOW in place prior to admit. Patient is interested in VNA services if needed. DP resume services already in place. Dtr/HCP will provide transportation home.
[2021-07-14 11:06] LABS: Glucose, Whole Blood 175 mg/dL (60-115)
[2021-07-14] MEDS: Insulin Lispro 100 UNIT/ML 3 ML VIAL SUBCUT ×3 (11:37→20:13)
[2021-07-14 16:07] LABS: Glucose, Whole Blood 162 mg/dL (60-115)
--- NOTE | 2021-07-14 16:16 | HO.PM.IMPN ---
Subjective Subjective Date of Service: 07/14/21 Interval History: No acute events overnight. States discomfort has improved Review of Systems Denies chest pain Denies shortness of breath Denies nausea vomiting diarrhea Physical Exam Vital Signs: Vital Signs: Last Vital Signs Temp 98.8 F 07/14/21 15:11 Pulse 76 07/14/21 15:11 Resp 18 07/14/21 15:11 BP 160/79 H 07/14/21 15:19 Pulse Ox 92 07/14/21 15:11 Body Mass Index 36.6 Const: Other: Awake alert orient x3 no acute distress Resp: Other: Clear to auscultation bilaterally no rales rhonchi wheezes Cardio: Other: No S4; positive S1-S2; GI: Other: Soft nontender nondistended normoactive bowel sounds no peritoneal signs Extrem: Other: No edema bilaterally Objective Data Active Medications Dextrose (Dextrose 50 % 25 Gm/50 Ml Vial) 25 gm IVPUSH Q15M PRN; Protocol PRN Reason: per Hypoglycemia Standing Ord. Glucose (Glucose Gel 15 Gm Gel..Gram.) 15 gm PO Q15M PRN; Protocol PRN Reason: per Hypoglycemia Standing Ord. Hydromorphone HCl (Hydromorphone Hcl 0.5 Mg/0.5 Ml Syringe) 0.5 mg IVPUSH Q4H PRN; Protocol PRN Reason: Pain, Severe (Pain Scale 7-10) Last Admin: 07/14/21 13:34 Dose: 0.5 mg Documented by: KETURAH Ceftriaxone Sodium 1 gm/ (Sodium Chloride) 50 mls @ 100 mls/hr IV Q24H [facility] Last Infusion: 07/14/21 05:56 Dose: 0 mls/hr Documented by: ЮЛИЯ Metronidazole (Flagyl) 500 mg in 100 mls @ 100 mls/hr IV Q8H [facility] Last Infusion: 07/14/21 12:55 Dose: 0 mls/hr Documented by: KETURAH Dextrose/Sodium Chloride (D51/2ns) 1,000 mls @ 50 mls/hr IVCONT .Q20H [facility] Last Admin: 07/14/21 07:37 Dose: 50 mls/hr Documented by: KETURAH Cefotetan Disodium 2 gm/ (Sodium Chloride) 50 mls @ 100 mls/hr IV PREOP ONE Stop: 07/19/21 13:08 Insulin Human Lispro (Insulin Lispro 100 Unit/Ml 3 Ml Vial) 0.1 - 10 unit SUBCUT QIDACHAstrid [facility]; Protocol Last Admin: 07/14/21 11:37 Dose: 2 unit Documented by: KETURAH Melatonin (Melatonin 3 Mg Tablet) 6 mg PO BEDTIME PRN PRN Reason: Insomnia Pharmacy Consult (Consult Rx Perform Med Rec) 1 each MISCELLANE ONCE PRN PRN Reason: Consult order Sodium Chloride (0.9 % Sodium Chloride Flush 3 Ml Syringe) 3 ml IVFLUSH [facility] Last Admin: 07/14/21 14:57 Dose: Not Given Documented by: KETURAH Non-Admin Reason: IV Running Labs CBC & Chem 7: 07/14/21 05:53 07/14/21 05:53 Labs: Laboratory Results - last 24 hr 07/13/21 07/13/21 07/14/21 17:08 21:39 05:53 MCV 90.4 MCH 29.4 MCHC 32.5 RDW 14.1 Plt Count 146 L MPV 11.1 Absolute Nucleated RBC 0.000 Nucleated RBC % (auto) 0.0 Anion Gap Estim Creat Clear Calc Estimated GFR POC Glucose 124 H 126 H Random Glucose Calcium Total Bilirubin Direct Bilirubin AST ALT Alkaline Phosphatase Total Protein Albumin 07/14/21 07/14/21 07/14/21 05:53 07:27 11:03 MCV MCH MCHC RDW Plt Count MPV Absolute Nucleated RBC Nucleated RBC % (auto) Anion Gap 18 Estim Creat Clear Calc 79.0 Estimated GFR > 60 POC Glucose 117 H 175 H Random Glucose 129 H Calcium 8.5 D Total Bilirubin 4.8 H Direct Bilirubin 4.2 H AST 172 H ALT 276 H Alkaline Phosphatase 275 H Total Protein 5.6 L Albumin 3.4 L 07/14/21 16:04 MCV MCH MCHC RDW Plt Count MPV Absolute Nucleated RBC Nucleated RBC % (auto) Anion Gap Estim Creat Clear Calc Estimated GFR POC Glucose 162 H Random Glucose Calcium Total Bilirubin Direct Bilirubin AST ALT Alkaline Phosphatase Total Protein Albumin Microbiology Microbiology Results: Microbiology 07/13/21 04:14 Blood Culture - Preliminary Blood - Venous Prelim: GPR Gram Stain only 07/13/21 04:08 Blood Culture - Preliminary Blood - Venous Gram negative michael Assessment and Plan (1) Acute calculous cholecystitis: Status: Acute (2) Elevated liver enzymes: Status: Acute Assessment and Plan: 71-year-old male with a past medical history of hypertension, hyperlipidemia, diabetes, coronary artery disease status post CABG, obesity, KATINA on CPAP, history of Alzheimer's dementia presented to the hospital with a chief complaint of right upper quadrant abdominal pain/noted to have acute cholecystitis/gallstones/transaminitis. 1.Acute cholecystitis/gallstones Per surgery; scheduled for CCY 07/18/21 Pain control adequate 2. Bacteremia Two separate cultures; 1 GPR, 1 GNR Will continue IV ceftriaxone/metronidazole/Cefotetan. ID consult for pending sensitivities/duration 3. Cholestatic LFTs Continue to trend pending CCY 07/18/21 4. Hypertension Continue losartan/metoprolol as per outpatient dosing 5. CAD Aspirin on hold pending procedure. Continue other therapies 6. Type 2 diabetes requiring insulin Continue sliding scale; hold Toujeo/Lantus while on clear. Will add back after surgery as per recommendations 7. GERD Continue PPI DVT prophylaxis: SCD boots Code status: Full code Quality Stroke Does the patient have a stroke diagnosis?: No VTE Prior VTE?: No VTE Risk Level:: Medical - moderate - high VTE Device Contraindication: N/A - Device Ordered VTE Drug Contraindication: Treatment Not Indicated
--- NOTE | 2021-07-14 16:22 | PM.EVENT ---
Event Note Date of Service: 07/14/21 Event Note: Patient continues to improve Less pain Hungry and wants to eat Abdomen soft minimal tenderness Bilirubin however elevated still Discussed with GI - AST ALT have improved so maybe a lag with regards to improvement of bilirubin Continue to follow Okay to use restart diet tomorrow Patient tentatively for laparoscopic cholecystectomy, possible open on Monday Discussed with daughter Robyn
[2021-07-14] MEDS: Metoprolol Succinate ER 50 MG TAB.ER.24H PO (16:40)
[2021-07-14] MEDS: Losartan Potassium 50 MG TABLET PO (16:40)
[2021-07-14] MEDS: Donepezil HCl 10 MG TABLET PO (16:41)
[2021-07-14 20:10] LABS: Glucose, Whole Blood 201 mg/dL (60-115)
[2021-07-14] MEDS: Memantine HCl 10 MG TABLET PO (20:12)
[2021-07-14] MEDS: DULoxetine HCl 60 MG CAPSULE.DR PO (20:12)
[2021-07-15] VITALS (7 sets, daily range): BP systolic 118–160; BP diastolic 63–86; PULSE 67–89; RESP 14–19; TEMP 36.4–37.2; O2SAT 90–98
[2021-07-15] MEDS: cefTRIAXone sodium 1 GM in 0.9 % Sodium Chloride 50 ML IV (03:51)
[2021-07-15] MEDS: metroNIDAZOLE/NS 500 MG/100 ML PIGGYBACK 100 MG IV ×3 (03:52→21:40)
[2021-07-15] MEDS: Omeprazole 20 MG CAPSULE.DR PO (05:27)
[2021-07-15 07:51] LABS: Glucose, Whole Blood 179 mg/dL (60-115)
[2021-07-15] MEDS: Insulin Lispro 100 UNIT/ML 3 ML VIAL SUBCUT ×4 (08:03→21:39)
[2021-07-15] MEDS: Memantine HCl 10 MG TABLET PO ×2 (08:04→21:39)
[2021-07-15] MEDS: Ascorbic Acid 250 MG TABLET PO (08:04)
[2021-07-15] MEDS: Losartan Potassium 50 MG TABLET PO (08:04)
[2021-07-15] MEDS: DULoxetine HCl 60 MG CAPSULE.DR PO ×2 (08:04→21:39)
[2021-07-15] MEDS: Cyanocobalamin (Vitamin B-12) 1,000 MCG TABLET 1000 MCG PO (08:04)
[2021-07-15] MEDS: Cholecalciferol (Vitamin D3) 25 MCG TABLET PO (08:04)
[2021-07-15] MEDS: Donepezil HCl 10 MG TABLET PO (08:04)
[2021-07-15] MEDS: Metoprolol Succinate ER 50 MG TAB.ER.24H PO (08:04)
[2021-07-15 08:32] LABS: MANUAL DIFF FLAG NO
[2021-07-15 08:37] LABS: Basophils Absolute Auto 0.1 X10*3/uL (0.0-0.2); Basophils Percent Auto 0.7 % (0-2); Eosinophils Absolute Auto 0.4 X10*3/uL (0.0-0.4); Eosinophils Percent Auto 5.7 % (0-4); Hematocrit 49.1 % (42.0-52.0); Hemoglobin 16.1 g/dl (14.0-18.0); Imm Gran Abs Auto 0.03 X10*3/uL (0.00-0.03); Imm Gran Pct Auto 0.4 % (0.0-0.4); Lymphocytes Percent Auto 13.4 % (20-40); Mean Corpuscular HGB Conc 32.8 g/dl (31.0-36.0); Mean Corpuscular Hemoglobin 29.1 pg (27.0-33.0); Mean Corpuscular Volume 88.6 fL (80.0-98.0); Monocytes Absolute Auto 0.9 X10*3/uL (0.1-1.2); Monocytes Percent Auto 11.9 % (2-11); Neutrophils Absolute Auto 5.1 x10*3/uL (2.0-8.3); Neutrophils Percent Auto 67.9 % (45-73); Platelet Count 157 X10*3/uL (160-400); Red Blood Count 5.54 X10*6/uL (4.60-5.80); Red Cell Distribution Width 13.8 % (11.0-16.0); White Blood Count 7.5 X10*3/uL (4.8-10.8)
[2021-07-15 08:58] LABS: Alanine Aminotransferase 210 U/L (0-40); Albumin Level 3.5 g/dL (3.5-5.0); Alkaline Phosphatase 360 U/L (39-117); Anion Gap 16 (12-20); Aspartate Amino Transferase 125 U/L (5-37); Bilirubin Total 4.2 mg/dL (0.0-1.0); Blood Urea Nitrogen 14 mg/dL (9-16); Calcium 8.5 mg/dL (8.4-10.2); Carbon Dioxide 19 mmol/L (22-29); Chloride 105 mmol/L (96-108); Estimated Glomerular Filt Rate > 60; Glucose Fasting 186 mg/dL (60-99); Potassium 3.8 mmol/L (3.3-5.1); Sodium 136 mmol/L (135-145)
[2021-07-15 11:17] LABS: Glucose, Whole Blood 334 mg/dL (60-115)
[2021-07-15] MEDS: HYDROmorphone HCl 0.5 MG/0.5 ML SYRINGE IVPUSH ×2 (11:42→21:44)
--- NOTE | 2021-07-15 13:31 | HO.PM.IMPN ---
Subjective Subjective Date of Service: 07/15/21 Interval History: Feels better this morning, asking for food Review of Systems Denies chest pain Denies shortness of breath Denies nausea vomiting diarrhea Physical Exam Vital Signs: Vital Signs: Last Vital Signs Temp 98.2 F 07/15/21 12:00 Pulse 67 07/15/21 12:00 Resp 14 07/15/21 12:00 BP 118/63 07/15/21 12:00 Pulse Ox 98 07/15/21 12:00 Body Mass Index 36.6 Resp: Other: Clear to auscultation bilaterally no rales rhonchi wheezes Cardio: Other: No S4; positive S1-S2; GI: Other: Soft nontender nondistended normoactive bowel sounds no peritoneal signs Extrem: Other: No edema bilaterally Objective Data Active Medications Ascorbic Acid (Ascorbic Acid 250 Mg Tablet) 250 mg PO DAILY [facility] Last Admin: 07/15/21 08:04 Dose: 250 mg Documented by: FLORECITA Calcium Carbonate (Calcium Carbonate 500 Mg Tablet) 1,000 mg PO BID [facility] Last Admin: 07/15/21 08:03 Dose: 1,000 mg Documented by: FLORECITA Cyanocobalamin (Cyanocobalamin (Vitamin B-12) 1,000 Mcg Tablet) 1,000 mcg PO DAILY [facility] Last Admin: 07/15/21 08:04 Dose: 1,000 mcg Documented by: FLORECITA Dextrose (Dextrose 50 % 25 Gm/50 Ml Vial) 25 gm IVPUSH Q15M PRN; Protocol PRN Reason: per Hypoglycemia Standing Ord. Donepezil HCl (Donepezil Hcl 10 Mg Tablet) 10 mg PO DAILY [facility] Last Admin: 07/15/21 08:04 Dose: 10 mg Documented by: FLORECITA Duloxetine HCl (Duloxetine Hcl 60 Mg Capsule.Dr) 60 mg PO BID [facility] Last Admin: 07/15/21 08:04 Dose: 60 mg Documented by: FLORECITA Glucose (Glucose Gel 15 Gm Gel..Gram.) 15 gm PO Q15M PRN; Protocol PRN Reason: per Hypoglycemia Standing Ord. Hydromorphone HCl (Hydromorphone Hcl 0.5 Mg/0.5 Ml Syringe) 0.5 mg IVPUSH Q4H PRN; Protocol PRN Reason: Pain, Severe (Pain Scale 7-10) Last Admin: 07/15/21 11:42 Dose: 0.5 mg Documented by: FLORECITA Ceftriaxone Sodium 1 gm/ (Sodium Chloride) 50 mls @ 100 mls/hr IV Q24H [facility] Last Infusion: 07/15/21 04:34 Dose: 0 mls/hr Documented by: CESAR Metronidazole (Flagyl) 500 mg in 100 mls @ 100 mls/hr IV Q8H [facility] Last Infusion: 07/15/21 12:42 Dose: 0 mls/hr Documented by: FLORECITA Cefotetan Disodium 2 gm/ (Sodium Chloride) 50 mls @ 100 mls/hr IV PREOP ONE Stop: 07/19/21 13:08 Insulin Human Lispro (Insulin Lispro 100 Unit/Ml 3 Ml Vial) 0.1 - 10 unit SUBCUT QIDACHS [facility]; Protocol Last Admin: 07/15/21 11:46 Dose: 8 unit Documented by: FLORECITA Losartan Potassium (Losartan Potassium 50 Mg Tablet) 50 mg PO DAILY [facility]; Protocol Last Admin: 07/15/21 08:04 Dose: 50 mg Documented by: FLORECITA Melatonin (Melatonin 3 Mg Tablet) 6 mg PO BEDTIME PRN PRN Reason: Insomnia Memantine (Memantine Hcl 10 Mg Tablet) 10 mg PO BID [facility] Last Admin: 07/15/21 08:04 Dose: 10 mg Documented by: FLORECITA Metoprolol Succinate (Metoprolol Succinate Er 50 Mg Tab.Er.24h) 50 mg PO DAILY [facility]; Protocol Last Admin: 07/15/21 08:04 Dose: 50 mg Documented by: FLORECITA Omeprazole (Omeprazole 20 Mg Capsule.Dr) 20 mg PO DAILY@0630 [facility] Last Admin: 07/15/21 05:27 Dose: 20 mg Documented by: CESAR Pharmacy Consult (Consult Rx Perform Med Rec) 1 each MISCELLANE ONCE PRN PRN Reason: Consult order Sodium Chloride (0.9 % Sodium Chloride Flush 3 Ml Syringe) 3 ml IVFLUSH QSHIFT [facility] Last Admin: 07/15/21 07:24 Dose: Not Given Documented by: FLORECITA Non-Admin Reason: IV Running Vitamin D (Cholecalciferol (Vitamin D3) 25 Mcg Tablet) 25 mcg PO DAILY [facility] Last Admin: 07/15/21 08:04 Dose: 25 mcg Documented by: FLORECITA Labs CBC & Chem 7: 07/15/21 08:18 07/15/21 08:18 Labs: Laboratory Results - last 24 hr 07/14/21 07/14/21 07/15/21 16:04 19:58 07:39 MCV MCH MCHC RDW Plt Count MPV Immature Gran % (Auto) Neut % (Auto) Lymph % (Auto) [place] % (Auto) Eos % (Auto) Baso % (Auto) Lymph # (Auto) [place] # (Auto) Eos # (Auto) Baso # (Auto) Abs Immat Gran (auto) Absolute Neuts (auto) Absolute Nucleated RBC Nucleated RBC % (auto) Anion Gap Estim Creat Clear Calc Estimated GFR POC Glucose 162 H 201 H 179 H Fasting Glucose Calcium Total Bilirubin AST ALT Alkaline Phosphatase Total Protein Albumin 07/15/21 07/15/21 07/15/21 08:18 08:18 11:10 MCV 88.6 MCH 29.1 MCHC 32.8 RDW 13.8 Plt Count 157 L MPV 11.0 Immature Gran % (Auto) 0.4 Neut % (Auto) 67.9 Lymph % (Auto) 13.4 L [place] % (Auto) 11.9 H Eos % (Auto) 5.7 H Baso % (Auto) 0.7 Lymph # (Auto) 1.0 L [place] # (Auto) 0.9 Eos # (Auto) 0.4 Baso # (Auto) 0.1 Abs Immat Gran (auto) 0.03 Absolute Neuts (auto) 5.1 Absolute Nucleated RBC 0.000 Nucleated RBC % (auto) 0.0 Anion Gap 16 Estim Creat Clear Calc 90.0 Estimated GFR > 60 POC Glucose 334 H Fasting Glucose 186 H Calcium 8.5 Total Bilirubin 4.2 H AST 125 H ALT 210 H Alkaline Phosphatase 360 H D Total Protein 6.0 L Albumin 3.5 Microbiology Microbiology Results: Microbiology 07/13/21 04:14 Blood Culture - Preliminary Blood - Venous Prelim: GPR Gram Stain only 07/13/21 04:08 Blood Culture - Final Blood - Venous Escherichia coli Assessment and Plan (1) Acute calculous cholecystitis: Status: Acute (2) Diabetes: Status: Acute Assessment and Plan: 71-year-old male with a past medical history of hypertension, hyperlipidemia, diabetes, coronary artery disease status post CABG, obesity, KATINA on CPAP, history of Alzheimer's dementia presented to the hospital with a chief complaint of right upper quadrant abdominal pain/noted to have acute cholecystitis/gallstones/transaminitis. 1.Acute cholecystitis/gallstones Per surgery; scheduled for CCY 07/18/21 Pain control adequate.... Will order diet until midnight 07/17/2021 2. Bacteremia Two separate cultures; likely E coli Will continue IV ceftriaxone/metronidazole/Cefotetan. ID consult for pending sensitivities/duration 3. Cholestatic LFTs Continue to trend pending CCY 07/18/21 4. Hypertension Continue losartan/metoprolol as per outpatient dosing 5. CAD Aspirin on hold pending procedure. Continue other therapies 6. Type 2 diabetes requiring insulin Continue sliding scale; hold Toujeo/Lantus while on clear. Will add back after surgery as per recommendations DC IV fluids encourage oral intake 7. GERD Continue PPI DVT prophylaxis: SCD boots Code status: Full code Quality Stroke Does the patient have a stroke diagnosis?: No VTE Prior VTE?: No VTE Risk Level:: Medical - moderate - high VTE Device Contraindication: N/A - Device Ordered VTE Drug Contraindication: Treatment Not Indicated
[2021-07-15 16:25] LABS: Glucose, Whole Blood 379 mg/dL (60-115)
[2021-07-15] MEDS: 0.9 % Sodium Chloride Flush 3 ML SYRINGE IVFLUSH ×2 (16:46→23:17)
--- NOTE | 2021-07-15 16:49 | P.PNGS_ITS ---
Subjective Subjective Date of Service: 07/15/21 Interval history: feeling ok not much pain getting hungry Physical Exam Vital Signs: Vital Signs: Last Vital Signs Temp 97.8 F 07/15/21 15:45 Pulse 74 07/15/21 15:45 Resp 18 07/15/21 15:45 BP 155/85 H 07/15/21 15:45 Pulse Ox 97 07/15/21 15:45 Body Mass Index 36.6 GI: Other: abdo soft mild ruq and mid abdo tenderness no guarding Objective Data Active Medications Ascorbic Acid (Ascorbic Acid 250 Mg Tablet) 250 mg PO DAILY [facility] Last Admin: 07/15/21 08:04 Dose: 250 mg Documented by: FLORECITA Calcium Carbonate (Calcium Carbonate 500 Mg Tablet) 1,000 mg PO BID [facility] Last Admin: 07/15/21 08:03 Dose: 1,000 mg Documented by: FLORECITA Cyanocobalamin (Cyanocobalamin (Vitamin B-12) 1,000 Mcg Tablet) 1,000 mcg PO DAILY [facility] Last Admin: 07/15/21 08:04 Dose: 1,000 mcg Documented by: FLORECITA Dextrose (Dextrose 50 % 25 Gm/50 Ml Vial) 25 gm IVPUSH Q15M PRN; Protocol PRN Reason: per Hypoglycemia Standing Ord. Donepezil HCl (Donepezil Hcl 10 Mg Tablet) 10 mg PO DAILY [facility] Last Admin: 07/15/21 08:04 Dose: 10 mg Documented by: FLORECITA Duloxetine HCl (Duloxetine Hcl 60 Mg Capsule.Dr) 60 mg PO BID [facility] Last Admin: 07/15/21 08:04 Dose: 60 mg Documented by: FLORECITA Glucose (Glucose Gel 15 Gm Gel..Gram.) 15 gm PO Q15M PRN; Protocol PRN Reason: per Hypoglycemia Standing Ord. Hydromorphone HCl (Hydromorphone Hcl 0.5 Mg/0.5 Ml Syringe) 0.5 mg IVPUSH Q4H PRN; Protocol PRN Reason: Pain, Severe (Pain Scale 7-10) Last Admin: 07/15/21 11:42 Dose: 0.5 mg Documented by: FLORECITA Ceftriaxone Sodium 1 gm/ (Sodium Chloride) 50 mls @ 100 mls/hr IV Q24H [facility] Last Infusion: 07/15/21 04:34 Dose: 0 mls/hr Documented by: CESAR Metronidazole (Flagyl) 500 mg in 100 mls @ 100 mls/hr IV Q8H [facility] Last Infusion: 07/15/21 12:42 Dose: 0 mls/hr Documented by: FLORECITA Cefotetan Disodium 2 gm/ (Sodium Chloride) 50 mls @ 100 mls/hr IV PREOP ONE Stop: 07/19/21 13:08 Insulin Human Lispro (Insulin Lispro 100 Unit/Ml 3 Ml Vial) 0.1 - 10 unit SUBCUT QIDACHS [facility]; Protocol Last Admin: 07/15/21 16:46 Dose: 10 unit Documented by: FLORECITA Losartan Potassium (Losartan Potassium 50 Mg Tablet) 50 mg PO DAILY [facility]; Protocol Last Admin: 07/15/21 08:04 Dose: 50 mg Documented by: FLORECITA Melatonin (Melatonin 3 Mg Tablet) 6 mg PO BEDTIME PRN PRN Reason: Insomnia Memantine (Memantine Hcl 10 Mg Tablet) 10 mg PO BID [facility] Last Admin: 07/15/21 08:04 Dose: 10 mg Documented by: FLORECITA Metoprolol Succinate (Metoprolol Succinate Er 50 Mg Tab.Er.24h) 50 mg PO DAILY [facility]; Protocol Last Admin: 07/15/21 08:04 Dose: 50 mg Documented by: FLORECITA Omeprazole (Omeprazole 20 Mg Capsule.Dr) 20 mg PO DAILY@0630 [facility] Last Admin: 07/15/21 05:27 Dose: 20 mg Documented by: CESAR Pharmacy Consult (Consult Rx Perform Med Rec) 1 each MISCELLANE ONCE PRN PRN Reason: Consult order Sodium Chloride (0.9 % Sodium Chloride Flush 3 Ml Syringe) 3 ml IVFLUSH QSHIFT [facility] Last Admin: 07/15/21 16:46 Dose: 3 ml Documented by: FLORECITA Vitamin D (Cholecalciferol (Vitamin D3) 25 Mcg Tablet) 25 mcg PO DAILY [facility] Last Admin: 07/15/21 08:04 Dose: 25 mcg Documented by: FLORECITA Labs CBC & Chem 7: 07/15/21 08:18 07/15/21 08:18 Labs: Laboratory Results - last 24 hr 07/14/21 07/15/21 07/15/21 19:58 07:39 08:18 MCV 88.6 MCH 29.1 MCHC 32.8 RDW 13.8 Plt Count 157 L MPV 11.0 Immature Gran % (Auto) 0.4 Neut % (Auto) 67.9 Lymph % (Auto) 13.4 L [place] % (Auto) 11.9 H Eos % (Auto) 5.7 H Baso % (Auto) 0.7 Lymph # (Auto) 1.0 L [place] # (Auto) 0.9 Eos # (Auto) 0.4 Baso # (Auto) 0.1 Abs Immat Gran (auto) 0.03 Absolute Neuts (auto) 5.1 Absolute Nucleated RBC 0.000 Nucleated RBC % (auto) 0.0 Anion Gap Estim Creat Clear Calc Estimated GFR POC Glucose 201 H 179 H Fasting Glucose Calcium Total Bilirubin AST ALT Alkaline Phosphatase Total Protein Albumin 07/15/21 07/15/21 07/15/21 08:18 11:10 16:15 MCV MCH MCHC RDW Plt Count MPV Immature Gran % (Auto) Neut % (Auto) Lymph % (Auto) [place] % (Auto) Eos % (Auto) Baso % (Auto) Lymph # (Auto) [place] # (Auto) Eos # (Auto) Baso # (Auto) Abs Immat Gran (auto) Absolute Neuts (auto) Absolute Nucleated RBC Nucleated RBC % (auto) Anion Gap 16 Estim Creat Clear Calc 90.0 Estimated GFR > 60 POC Glucose 334 H 379 H* Fasting Glucose 186 H Calcium 8.5 Total Bilirubin 4.2 H AST 125 H ALT 210 H Alkaline Phosphatase 360 H D Total Protein 6.0 L Albumin 3.5 Microbiology Microbiology Results: Microbiology 07/13/21 04:14 Blood Culture - Final Blood - Venous Clostridium perfringens 07/13/21 04:08 Blood Culture - Final Blood - Venous Escherichia coli Procedures Date of Service Date of Service: 07/15/21 Progress Note: A&P Assessment and plan (1) Acute calculous cholecystitis: Status: Acute Assessment and Plan: pt with cholecystitis clinically seemingly to improve, labs still elevated. mrcp not showing any cbd stones. pt being medically treated with antibx and bowel rest. plan for surgery once labs normalize Fall Risk Details Current Medications: Current Medications Ascorbic Acid (Ascorbic Acid 250 Mg Tablet) 250 mg PO DAILY [facility] Last Admin: 07/15/21 08:04 Dose: 250 mg Documented by: Calcium Carbonate (Calcium Carbonate 500 Mg Tablet) 1,000 mg PO BID [facility] Last Admin: 07/15/21 08:03 Dose: 1,000 mg Documented by: Cyanocobalamin (Cyanocobalamin (Vitamin B-12) 1,000 Mcg Tablet) 1,000 mcg PO DAILY [facility] Last Admin: 07/15/21 08:04 Dose: 1,000 mcg Documented by: Dextrose (Dextrose 50 % 25 Gm/50 Ml Vial) 25 gm IVPUSH Q15M PRN; Protocol PRN Reason: per Hypoglycemia Standing Ord. Donepezil HCl (Donepezil Hcl 10 Mg Tablet) 10 mg PO DAILY [facility] Last Admin: 07/15/21 08:04 Dose: 10 mg Documented by: Duloxetine HCl (Duloxetine Hcl 60 Mg Capsule.Dr) 60 mg PO BID [facility] Last Admin: 07/15/21 08:04 Dose: 60 mg Documented by: Glucose (Glucose Gel 15 Gm Gel..Gram.) 15 gm PO Q15M PRN; Protocol PRN Reason: per Hypoglycemia Standing Ord. Hydromorphone HCl (Hydromorphone Hcl 0.5 Mg/0.5 Ml Syringe) 0.5 mg IVPUSH Q4H PRN; Protocol PRN Reason: Pain, Severe (Pain Scale 7-10) Last Admin: 07/15/21 11:42 Dose: 0.5 mg Documented by: Ceftriaxone Sodium 1 gm/ (Sodium Chloride) 50 mls @ 100 mls/hr IV Q24H [facility] Last Infusion: 07/15/21 04:34 Dose: Infused Documented by: Metronidazole (Flagyl) 500 mg in 100 mls @ 100 mls/hr IV Q8H [facility] Last Infusion: 07/15/21 12:42 Dose: Infused Documented by: Cefotetan Disodium 2 gm/ (Sodium Chloride) 50 mls @ 100 mls/hr IV PREOP ONE Stop: 07/19/21 13:08 Insulin Human Lispro (Insulin Lispro 100 Unit/Ml 3 Ml Vial) 0.1 - 10 unit PLATT BCUT QIDACHS [facility]; Protocol Last Admin: 07/15/21 16:46 Dose: 10 unit Documented by: Losartan Potassium (Losartan Potassium 50 Mg Tablet) 50 mg PO DAILY [facility]; Protocol Last Admin: 07/15/21 08:04 Dose: 50 mg Documented by: Melatonin (Melatonin 3 Mg Tablet) 6 mg PO BEDTIME PRN PRN Reason: Insomnia Memantine (Memantine Hcl 10 Mg Tablet) 10 mg PO BID [facility] Last Admin: 07/15/21 08:04 Dose: 10 mg Documented by: Metoprolol Succinate (Metoprolol Succinate Er 50 Mg Tab.Er.24h) 50 mg PO DAILY [facility]; Protocol Last Admin: 07/15/21 08:04 Dose: 50 mg Documented by: Omeprazole (Omeprazole 20 Mg Capsule.Dr) 20 mg PO DAILY@0630 [facility] Last Admin: 07/15/21 05:27 Dose: 20 mg Documented by: Pharmacy Consult (Consult Rx Perform Med Rec) 1 each MISCELLANE ONCE PRN PRN Reason: Consult order Sodium Chloride (0.9 % Sodium Chloride Flush 3 Ml Syringe) 3 ml IVFLUSH QSHIFT [facility] Last Admin: 07/15/21 16:46 Dose: 3 ml Documented by: Vitamin D (Cholecalciferol (Vitamin D3) 25 Mcg Tablet) 25 mcg PO DAILY [facility] Last Admin: 07/15/21 08:04 Dose: 25 mcg Documented by: Time Spent With Patient Time: Total time spent is greater than 50% in coordination of care (as documented) at patient's floor/unit and/or counseling patient: Time with patient: 15 - 24 minutes Quality Stroke Does the patient have a stroke diagnosis?: No VTE Prior VTE?: No VTE Risk Level:: Medical - moderate - high VTE Device Contraindication: N/A - Device Ordered VTE Drug Contraindication: Treatment Not Indicated
[2021-07-15 20:27] LABS: Glucose, Whole Blood 345 mg/dL (60-115)
[2021-07-15] MEDS: Insulin Glargine,Hum.rec.anlog 100 UNIT/ML 10 ML VIAL 30 UNIT SUBCUT (21:39)
[2021-07-16] VITALS (11 sets, daily range): BP systolic 128–176; BP diastolic 75–97; PULSE 78–80; RESP 18–20; TEMP 36.5–37; O2SAT 92–96
[2021-07-16] MEDS: cefTRIAXone sodium 1 GM in 0.9 % Sodium Chloride 50 ML IV (03:19)
[2021-07-16] MEDS: HYDROmorphone HCl 0.5 MG/0.5 ML SYRINGE IVPUSH ×2 (03:19→21:03)
[2021-07-16] MEDS: metroNIDAZOLE/NS 500 MG/100 ML PIGGYBACK 100 MG IV (03:19)
[2021-07-16] MEDS: Omeprazole 20 MG CAPSULE.DR PO (05:10)
[2021-07-16 06:11] LABS: MANUAL DIFF FLAG NO
[2021-07-16 06:40] LABS: Alanine Aminotransferase 168 U/L (0-40); Albumin Level 3.2 g/dL (3.5-5.0); Alkaline Phosphatase 375 U/L (39-117); Anion Gap 13 (12-20); Aspartate Amino Transferase 99 U/L (5-37); Bilirubin Total 3.2 mg/dL (0.0-1.0); Blood Urea Nitrogen 13 mg/dL (9-16); Calcium 8.7 mg/dL (8.4-10.2); Carbon Dioxide 26 mmol/L (22-29); Chloride 101 mmol/L (96-108); Creatinine Clr Calc Pharmacy 76.6; Estimated Glomerular Filt Rate > 60; Glucose Fasting 234 mg/dL (60-99); Sodium 136 mmol/L (135-145); Total Protein 5.6 g/dL (6.5-8.0)
[2021-07-16 07:41] LABS: Glucose, Whole Blood 227 mg/dL (60-115)
[2021-07-16 07:57] LABS: Basophils Absolute Auto 0.1 X10*3/uL (0.0-0.2); Basophils Percent Auto 0.7 % (0-2); Eosinophils Absolute Auto 0.4 X10*3/uL (0.0-0.4); Eosinophils Percent Auto 5.5 % (0-4); Hematocrit 45.8 % (42.0-52.0); Hemoglobin 15.4 g/dl (14.0-18.0); Imm Gran Abs Auto 0.03 X10*3/uL (0.00-0.03); Imm Gran Pct Auto 0.4 % (0.0-0.4); Lymphocytes Absolute Auto 1.2 X10*3/uL (1.2-4.9); Lymphocytes Percent Auto 15.6 % (20-40); Mean Corpuscular HGB Conc 33.6 g/dl (31.0-36.0); Mean Corpuscular Hemoglobin 29.8 pg (27.0-33.0); Mean Corpuscular Volume 88.8 fL (80.0-98.0); Mean Platelet Volume 11.7 fL (9.4-12.4); Monocytes Percent Auto 12.5 % (2-11); Neutrophils Percent Auto 65.3 % (45-73); Platelet Count 167 X10*3/uL (160-400); Red Blood Count 5.16 X10*6/uL (4.60-5.80); Red Cell Distribution Width 14.2 % (11.0-16.0); White Blood Count 7.7 X10*3/uL (4.8-10.8)
[2021-07-16] MEDS: 0.9 % Sodium Chloride Flush 3 ML SYRINGE IVFLUSH ×3 (07:57→21:05)
[2021-07-16] MEDS: Insulin Lispro 100 UNIT/ML 3 ML VIAL SUBCUT ×4 (07:57→21:03)
[2021-07-16] MEDS: Cholecalciferol (Vitamin D3) 25 MCG TABLET PO (07:58)
[2021-07-16] MEDS: Donepezil HCl 10 MG TABLET PO (07:58)
[2021-07-16] MEDS: Cyanocobalamin (Vitamin B-12) 1,000 MCG TABLET 1000 MCG PO (07:58)
[2021-07-16] MEDS: Metoprolol Succinate ER 50 MG TAB.ER.24H PO (07:58)
[2021-07-16] MEDS: DULoxetine HCl 60 MG CAPSULE.DR PO ×2 (07:58→21:03)
[2021-07-16] MEDS: Memantine HCl 10 MG TABLET PO ×2 (07:59→21:03)
[2021-07-16] MEDS: Ascorbic Acid 250 MG TABLET PO (07:59)
[2021-07-16] MEDS: Losartan Potassium 50 MG TABLET PO (07:59)
[2021-07-16 11:27] LABS: Glucose, Whole Blood 245 mg/dL (60-115)
--- NOTE | 2021-07-16 12:57 | MHC.CM.PN ---
Male 71 DX Cholecystitis. No discharge today. CP is OR for Jazlyn when stable. DP Home with resumption of services. Pts Dtr will provide transportation.
[2021-07-16] MEDS: metroNIDAZOLE 500 MG TABLET PO ×2 (13:21→21:03)
--- NOTE | 2021-07-16 16:18 | HO.PM.IMPN ---
Subjective Subjective Date of Service: 07/16/21 Interval History: no acute issues overnight; tolerating diet Review of Systems denies chest pain Denies shortness of breath Denies nausea vomiting diarrhea Physical Exam Vital Signs: Vital Signs: Last Vital Signs Temp 97.7 F 07/16/21 15:06 Pulse 80 07/16/21 15:06 Resp 20 07/16/21 15:06 BP 141/87 H 07/16/21 15:06 Pulse Ox 92 07/16/21 15:06 Body Mass Index 36.6 Const: Other: Awake alert orient x3 no acute distress Resp: Other: Clear to auscultation bilaterally no rales rhonchi wheezes Cardio: Other: No S4; positive S1-S2; GI: Other: Soft nontender nondistended normoactive bowel sounds no peritoneal signs Extrem: Other: No edema bilaterally Objective Data Active Medications Ascorbic Acid (Ascorbic Acid 250 Mg Tablet) 250 mg PO DAILY [facility] Last Admin: 07/16/21 07:59 Dose: 250 mg Documented by: ANGEL Calcium Carbonate (Calcium Carbonate 500 Mg Tablet) 1,000 mg PO BID [facility] Last Admin: 07/16/21 07:57 Dose: 1,000 mg Documented by: ANGEL Cyanocobalamin (Cyanocobalamin (Vitamin B-12) 1,000 Mcg Tablet) 1,000 mcg PO DAILY [facility] Last Admin: 07/16/21 07:58 Dose: 1,000 mcg Documented by: ANGEL Dextrose (Dextrose 50 % 25 Gm/50 Ml Vial) 25 gm IVPUSH Q15M PRN; Protocol PRN Reason: per Hypoglycemia Standing Ord. Donepezil HCl (Donepezil Hcl 10 Mg Tablet) 10 mg PO DAILY [facility] Last Admin: 07/16/21 07:58 Dose: 10 mg Documented by: ANGEL Duloxetine HCl (Duloxetine Hcl 60 Mg Capsule.Dr) 60 mg PO BID [facility] Last Admin: 07/16/21 07:58 Dose: 60 mg Documented by: ANGEL Glucose (Glucose Gel 15 Gm Gel..Gram.) 15 gm PO Q15M PRN; Protocol PRN Reason: per Hypoglycemia Standing Ord. Hydromorphone HCl (Hydromorphone Hcl 0.5 Mg/0.5 Ml Syringe) 0.5 mg IVPUSH Q4H PRN; Protocol PRN Reason: Pain, Severe (Pain Scale 7-10) Last Admin: 07/16/21 03:19 Dose: 0.5 mg Documented by: CESAR Ceftriaxone Sodium 1 gm/ (Sodium Chloride) 50 mls @ 100 mls/hr IV Q24H [facility] Last Infusion: 07/16/21 03:50 Dose: 0 mls/hr Documented by: CESAR Cefotetan Disodium 2 gm/ (Sodium Chloride) 50 mls @ 100 mls/hr IV PREOP ONE Stop: 07/19/21 13:08 Insulin Glargine (Insulin Glargine,Hum.Rec.Anlog 100 Unit/Ml 10 Ml Vial) 30 unit SUBCUT BEDTIME [facility] Last Admin: 07/15/21 21:39 Dose: 30 unit Documented by: CESAR Insulin Human Lispro (Insulin Lispro 100 Unit/Ml 3 Ml Vial) 0.1 - 10 unit SUBCUT QIDACHS [facility]; Protocol Last Admin: 07/16/21 13:21 Dose: 4 unit Documented by: ANGEL Losartan Potassium (Losartan Potassium 50 Mg Tablet) 50 mg PO DAILY [facility]; Protocol Last Admin: 07/16/21 07:59 Dose: 50 mg Documented by: ANGEL Melatonin (Melatonin 3 Mg Tablet) 6 mg PO BEDTIME PRN PRN Reason: Insomnia Memantine (Memantine Hcl 10 Mg Tablet) 10 mg PO BID [facility] Last Admin: 07/16/21 07:59 Dose: 10 mg Documented by: ANGEL Metoprolol Succinate (Metoprolol Succinate Er 50 Mg Tab.Er.24h) 50 mg PO DAILY [facility]; Protocol Last Admin: 07/16/21 07:58 Dose: 50 mg Documented by: ANGEL Metronidazole (Metronidazole 500 Mg Tablet) 500 mg PO Q8H [facility] Last Admin: 07/16/21 13:21 Dose: 500 mg Documented by: ANGEL Omeprazole (Omeprazole 20 Mg Capsule.) 20 mg PO DAILY@0630 [facility] Last Admin: 07/16/21 05:10 Dose: 20 mg Documented by: CESAR Pharmacy Consult (Consult Rx Perform Med Rec) 1 each MISCELLANE ONCE PRN PRN Reason: Consult order Sodium Chloride (0.9 % Sodium Chloride Flush 3 Ml Syringe) 3 ml IVFLUSH QSHIFT [facility] Last Admin: 11/26/21 13:21 Dose: 3 ml Documented by: ANGEL Vitamin D (Cholecalciferol (Vitamin D3) 25 Mcg Tablet) 25 mcg PO DAILY [facility] Last Admin: 07/16/21 07:58 Dose: 25 mcg Documented by: ANGEL Labs CBC & Chem 7: 07/16/21 05:49 07/16/21 05:49 Labs: Laboratory Results - last 24 hr 07/15/21 07/15/21 07/16/21 16:15 20:02 05:49 MCV 88.8 MCH 29.8 MCHC 33.6 RDW 14.2 Plt Count 167 MPV 11.7 Immature Gran % (Auto) 0.4 Neut % (Auto) 65.3 Lymph % (Auto) 15.6 L [place] % (Auto) 12.5 H Eos % (Auto) 5.5 H Baso % (Auto) 0.7 Lymph # (Auto) 1.2 [place] # (Auto) 1.0 Eos # (Auto) 0.4 Baso # (Auto) 0.1 Abs Immat Gran (auto) 0.03 Absolute Neuts (auto) 5.0 Absolute Nucleated RBC 0.000 Nucleated RBC % (auto) 0.0 Anion Gap Estim Creat Clear Calc Estimated GFR POC Glucose 379 H* 345 H Fasting Glucose Calcium Total Bilirubin AST ALT Alkaline Phosphatase Total Protein Albumin 07/16/21 07/16/21 07/16/21 05:49 07:32 11:18 MCV MCH MCHC RDW Plt Count MPV Immature Gran % (Auto) Neut % (Auto) Lymph % (Auto) [place] % (Auto) Eos % (Auto) Baso % (Auto) Lymph # (Auto) [place] # (Auto) Eos # (Auto) Baso # (Auto) Abs Immat Gran (auto) Absolute Neuts (auto) Absolute Nucleated RBC Nucleated RBC % (auto) Anion Gap 13 Estim Creat Clear Calc 76.6 Estimated GFR > 60 POC Glucose 227 H 245 H Fasting Glucose 234 H Calcium 8.7 Total Bilirubin 3.2 H AST 99 H ALT 168 H Alkaline Phosphatase 375 H Total Protein 5.6 L Albumin 3.2 L Microbiology Microbiology Results: Microbiology 07/13/21 04:14 Blood Culture - Final Blood - Venous Clostridium perfringens Assessment and Plan (1) Acute calculous cholecystitis: Status: Acute (2) Diabetes: Status: Acute Assessment and Plan: 71-year-old male with a past medical history of hypertension, hyperlipidemia, diabetes, coronary artery disease status post CABG, obesity, KATINA on CPAP, history of Alzheimer's dementia presented to the hospital with a chief complaint of right upper quadrant abdominal pain/noted to have acute cholecystitis/gallstones/transaminitis. tolerating diet 1.Acute cholecystitis/gallstones Per surgery; scheduled for CCY 07/18/21 Pain control adequate.... tolerating diet 2. Bacteremia Will continue IV ceftriaxone/metronidazole/Cefotetan. ID consult for pending sensitivities/duration 3. Cholestatic LFTs Continue to trend pending CCY 07/18/21 4. Hypertension Continue losartan/metoprolol as per outpatient dosing 5. CAD Aspirin on hold pending procedure. Continue other therapies 6. Type 2 diabetes requiring insulin Continue sliding scale; Lantus added back follow response 7. GERD Continue PPI DVT prophylaxis: SCD boots Code status: Full code Quality Stroke Does the patient have a stroke diagnosis?: No VTE Prior VTE?: No VTE Risk Level:: Medical - moderate - high VTE Device Contraindication: N/A - Device Ordered VTE Drug Contraindication: Treatment Not Indicated
[2021-07-16 16:19] LABS: Glucose, Whole Blood 286 mg/dL (60-115)
[2021-07-16 20:54] LABS: Glucose, Whole Blood 287 mg/dL (60-115)
[2021-07-16] MEDS: Insulin Glargine,Hum.rec.anlog 100 UNIT/ML 10 ML VIAL 30 UNIT SUBCUT (21:02)
--- NOTE | 2021-07-16 23:07 | W.PM.IDCN ---
History of Present Illness Data of Consult Service Date: 07/16/21 Requesting physician: Gagan Cash Primary Care Provider: Unknown Physician HPI Reason for consult: abdominal discomfort He comes with discomfort 7/10 right upper quadrant. He has felt feverish and chills He has presumed E coli,clostridia concerns Review of Systems Review of Systems: Yes all other systems are reviewed and are negative PMFSH Past Medical History Medical History Diabetes Family History Family history: reviewed and not pertinent Surgical History Surgical History History of [place]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 Social History Social History Household Members: None Housing: Apartment Do you presently have visiting nurse or other home services: No Alcohol intake: former Patient Tobacco Use Status: Never used Tobacco Substance Use Type: Other service: No Current occupational status: retired [employer] Allergies Allergy/AdvReac Type Severity Reaction Status Date / Time No Known Allergies Allergy Verified 06/20/21 22:50 Active Medications: Current Medications Ascorbic Acid (Ascorbic Acid 250 Mg Tablet) 250 mg PO DAILY [facility] Last Admin: 07/16/21 07:59 Dose: 250 mg Documented by: Calcium Carbonate (Calcium Carbonate 500 Mg Tablet) 1,000 mg PO BID [facility] Last Admin: 07/16/21 21:04 Dose: 1,000 mg Documented by: Cyanocobalamin (Cyanocobalamin (Vitamin B-12) 1,000 Mcg Tablet) 1,000 mcg PO DAILY [facility] Last Admin: 07/16/21 07:58 Dose: 1,000 mcg Documented by: Dextrose (Dextrose 50 % 25 Gm/50 Ml Vial) 25 gm IVPUSH Q15M PRN; Protocol PRN Reason: per Hypoglycemia Standing Ord. Donepezil HCl (Donepezil Hcl 10 Mg Tablet) 10 mg PO DAILY [facility] Last Admin: 07/16/21 07:58 Dose: 10 mg Documented by: Duloxetine HCl (Duloxetine Hcl 60 Mg Capsule.Dr) 60 mg PO BID [facility] Last Admin: 07/16/21 21:03 Dose: 60 mg Documented by: Glucose (Glucose Gel 15 Gm Gel..Gram.) 15 gm PO Q15M PRN; Protocol PRN Reason: per Hypoglycemia Standing Ord. Hydromorphone HCl (Hydromorphone Hcl 0.5 Mg/0.5 Ml Syringe) 0.5 mg IVPUSH Q4H PRN; Protocol PRN Reason: Pain, Severe (Pain Scale 7-10) Last Admin: 07/16/21 21:03 Dose: 0.5 mg Documented by: Ceftriaxone Sodium 1 gm/ (Sodium Chloride) 50 mls @ 100 mls/hr IV Q24H [facility] Last Infusion: 07/16/21 03:50 Dose: Infused Documented by: Cefotetan Disodium 2 gm/ (Sodium Chloride) 50 mls @ 100 mls/hr IV PREOP ONE Stop: 07/19/21 13:08 Insulin Glargine (Insulin Glargine,Hum.Rec.Anlog 100 Unit/Ml 10 Ml Vial) 30 unit SUBCUT BEDTIME [facility] Last Admin: 07/16/21 21:02 Dose: 30 unit Documented by: Insulin Human Lispro (Insulin Lispro 100 Unit/Ml 3 Ml Vial) 0.1 - 10 unit SUBCUT QIDACHS [facility]; Protocol Last Admin: 07/16/21 21:03 Dose: 6 unit Documented by: Losartan Potassium (Losartan Potassium 50 Mg Tablet) 50 mg PO DAILY [facility]; Protocol Last Admin: 07/16/21 07:59 Dose: 50 mg Documented by: Melatonin (Melatonin 3 Mg Tablet) 6 mg PO BEDTIME PRN PRN Reason: Insomnia Memantine (Memantine Hcl 10 Mg Tablet) 10 mg PO BID [facility] Last Admin: 07/16/21 21:03 Dose: 10 mg Documented by: Metoprolol Succinate (Metoprolol Succinate Er 50 Mg Tab.Er.24h) 50 mg PO DAILY [facility]; Protocol Last Admin: 07/16/21 07:58 Dose: 50 mg Documented by: Metronidazole (Metronidazole 500 Mg Tablet) 500 mg PO Q8H [facility] Last Admin: 07/16/21 21:03 Dose: 500 mg Documented by: Omeprazole (Omeprazole 20 Mg Capsule.Dr) 20 mg PO DAILY@0630 [facility] Last Admin: 07/16/21 05:10 Dose: 20 mg Documented by: Pharmacy Consult (Consult Rx Perform Med Rec) 1 each MISCELLANE ONCE PRN PRN Reason: Consult order Sodium Chloride (0.9 % Sodium Chloride Flush 3 Ml Syringe) 3 ml IVFLUSH QSHIFT [facility] Last Admin: 07/16/21 21:05 Dose: 3 ml Documented by: Vitamin D (Cholecalciferol (Vitamin D3) 25 Mcg Tablet) 25 mcg PO DAILY [facility] Last Admin: 07/16/21 07:58 Dose: 25 mcg Documented by: Home Medications Medication Instructions Recorded Confirmed Last Taken Type donepezil 10 mg tablet 1 tab PO DAILY 07/12/21 07/13/21 07/12/21 History empagliflozin 25 mg tablet 1 tab PO DAILY 07/12/21 07/13/21 07/12/21 History (Jardiance) ezetimibe 10 mg-simvastatin 80 mg 1 tab PO BEDTIME 07/12/21 07/13/21 07/12/21 History tablet glimepiride 4 mg tablet 1 tab PO BID 07/12/21 07/13/21 07/12/21 History insulin aspart U-100 100 unit/mL See Protocol 07/12/21 07/13/21 07/12/21 History (3 mL) subcutaneous pen (Novolog Flexpen U-100 Insulin aspart) insulin glargine U-300 conc 300 49 unit SUBCUT DAILY 07/12/21 07/13/21 07/12/21 History unit/mL (1.5 mL) subcutaneous pen (Toujeo SoloStar U-300 Insulin) pantoprazole 40 mg tablet,delayed 1 tab PO DAILY 07/12/21 07/13/21 07/12/21 History release ascorbic acid (vitamin C) 500 mg 250 mg PO DAILY 07/13/21 07/13/21 07/12/21 History tablet (Vitamin C) calcium carbonate 500 mg calcium 1,000 mg PO BID 07/13/21 07/13/21 07/12/21 History (1,250 mg) tablet (Calcium 500) cholecalciferol (vitamin D3) 25 25 mcg PO DAILY 07/13/21 07/13/21 07/12/21 History mcg (1,000 unit) tablet (Vitamin D3) cyanocobalamin (vitamin B-12) 1,000 mcg PO DAILY 07/13/21 07/13/21 07/12/21 History 1,000 mcg tablet duloxetine 60 mg capsule,delayed 60 mg PO BID 07/13/21 07/13/21 07/12/21 History release losartan 50 mg tablet 1 tab PO DAILY 1107/13/21 07/12/21 History memantine 10 mg tablet 10 mg PO BID 07/13/21 07/13/21 Unknown History metoprolol succinate 50 mg 1 tab PO DAILY 07/13/21 07/13/21 07/12/21 History tablet,extended release 24 hr Physical Exam Vital Signs: Vital Signs: Last Vital Signs Temp 98.0 F 07/16/21 20:00 Pulse 80 07/16/21 20:00 Resp 20 07/16/21 21:03 BP 175/97 H 07/16/21 20:00 Pulse Ox 94 07/16/21 20:00 Body Mass Index 36.6 Const: General: cooperative Eyes: General: appearance normal, both eyes and all related structures Resp: Effort & Inspection: normal respiratory effort Cardio: Rate: regular rate Rhythm: regular rhythm GI: Palpation (GI): Soft to palpation and nontender Extrem: General: Yes normal to inspection Results Labs CBC & Chem 7: 07/16/21 05:49 07/16/21 05:49 Labs: Short CBC 07/16/21 Range/Units 05:49 WBC 7.7 (4.8-10.8) X10*3/uL Hgb 15.4 (14.0-18.0) g/dl Hct 45.8 (42.0-52.0) % Plt Count 167 (160-400) X10*3/uL BMP 07/16/21 05:49 Sodium 136 Potassium 4.0 Chloride 101 Carbon Dioxide 26 BUN 13 Creatinine 1.01 Calcium 8.7 Liver Function 07/16/21 Range/Units 05:49 Total Bilirubin 3.2 H (0.0-1.0) mg/dL AST 99 H (5-37) U/L ALT 168 H (0-40) U/L Alkaline Phosphatase 375 H (39-117) U/L Albumin 3.2 L (3.5-5.0) g/dL Microbiology Microbiology Results: Microbiology 07/13/21 04:14 Blood - Venous Blood Culture - Final Clostridium perfringens 07/13/21 04:08 Blood - Venous Blood Culture - Final Escherichia coli Assessment and Plan (1) Elevated liver enzymes: Status: Acute (2) Acute calculous cholecystitis: Status: Acute He has abdominal pain and cholecystitis E coli and anerobes concern Would continue Ceftriaxone and Flagyl until cholecystectomy Monday
[2021-07-17] VITALS (7 sets, daily range): BP systolic 140–167; BP diastolic 84–97; PULSE 79–84; RESP 17–20; TEMP 36.2–36.4; O2SAT 92–97
[2021-07-17] MEDS: cefTRIAXone sodium 1 GM in 0.9 % Sodium Chloride 50 ML IV (04:48)
[2021-07-17] MEDS: metroNIDAZOLE 500 MG TABLET PO ×3 (05:21→20:48)
[2021-07-17] MEDS: Omeprazole 20 MG CAPSULE.DR PO (05:22)
[2021-07-17 06:15] LABS: MANUAL DIFF FLAG NO
[2021-07-17 06:25] LABS: Basophils Absolute Auto 0.1 X10*3/uL (0.0-0.2); Basophils Percent Auto 0.7 % (0-2); Eosinophils Absolute Auto 0.4 X10*3/uL (0.0-0.4); Eosinophils Percent Auto 5.2 % (0-4); Hematocrit 46.5 % (42.0-52.0); Hemoglobin 15.4 g/dl (14.0-18.0); Imm Gran Abs Auto 0.07 X10*3/uL (0.00-0.03); Imm Gran Pct Auto 0.9 % (0.0-0.4); Lymphocytes Absolute Auto 2.1 X10*3/uL (1.2-4.9); Lymphocytes Percent Auto 25.8 % (20-40); Mean Corpuscular HGB Conc 33.1 g/dl (31.0-36.0); Mean Corpuscular Hemoglobin 29.3 pg (27.0-33.0); Mean Corpuscular Volume 88.4 fL (80.0-98.0); Monocytes Absolute Auto 0.8 X10*3/uL (0.1-1.2); Monocytes Percent Auto 9.6 % (2-11); Neutrophils Absolute Auto 4.7 x10*3/uL (2.0-8.3); Neutrophils Percent Auto 57.8 % (45-73); Platelet Count 169 X10*3/uL (160-400); Red Blood Count 5.26 X10*6/uL (4.60-5.80); Red Cell Distribution Width 14.4 % (11.0-16.0); White Blood Count 8.1 X10*3/uL (4.8-10.8)
[2021-07-17 06:40] LABS: Alanine Aminotransferase 126 U/L (0-40); Albumin Level 3.3 g/dL (3.5-5.0); Alkaline Phosphatase 365 U/L (39-117); Anion Gap 13 (12-20); Aspartate Amino Transferase 51 U/L (5-37); Bilirubin Total 2.1 mg/dL (0.0-1.0); Blood Urea Nitrogen 15 mg/dL (9-16); Calcium 8.4 mg/dL (8.4-10.2); Carbon Dioxide 26 mmol/L (22-29); Chloride 102 mmol/L (96-108); Creatinine Clr Calc Pharmacy 85.1; Estimated Glomerular Filt Rate > 60; Glucose Fasting 267 mg/dL (60-99); Potassium 4.1 mmol/L (3.3-5.1); Sodium 137 mmol/L (135-145); Total Protein 5.7 g/dL (6.5-8.0)
[2021-07-17 07:43] LABS: Glucose, Whole Blood 258 mg/dL (60-115)
[2021-07-17] MEDS: Insulin Lispro 100 UNIT/ML 3 ML VIAL SUBCUT ×4 (08:32→20:49)
[2021-07-17] MEDS: DULoxetine HCl 60 MG CAPSULE.DR PO ×2 (09:48→20:49)
[2021-07-17] MEDS: Cholecalciferol (Vitamin D3) 25 MCG TABLET PO (09:48)
[2021-07-17] MEDS: Metoprolol Succinate ER 50 MG TAB.ER.24H PO (09:48)
[2021-07-17] MEDS: Ascorbic Acid 250 MG TABLET PO (09:48)
[2021-07-17] MEDS: Donepezil HCl 10 MG TABLET PO (09:48)
[2021-07-17] MEDS: Cyanocobalamin (Vitamin B-12) 1,000 MCG TABLET 1000 MCG PO (09:48)
[2021-07-17] MEDS: 0.9 % Sodium Chloride Flush 3 ML SYRINGE IVFLUSH ×3 (09:48→20:49)
[2021-07-17] MEDS: Memantine HCl 10 MG TABLET PO ×2 (09:49→20:49)
[2021-07-17] MEDS: Losartan Potassium 50 MG TABLET PO (09:49)
[2021-07-17 12:07] LABS: Glucose, Whole Blood 283 mg/dL (60-115)
[2021-07-17] MEDS: HYDROmorphone HCl 0.5 MG/0.5 ML SYRINGE IVPUSH ×3 (15:26→22:35)
--- NOTE | 2021-07-17 16:04 | P.PNIM_ITS ---
Subjective Subjective Date of Service: 07/17/21 Interval History: no acute issues over Review of Systems denies chest pain Denies shortness of breath Denies nausea vomiting diarrhea Physical Exam Vital Signs: Vital Signs: Last Vital Signs Temp 97.5 F 07/17/21 15:16 Pulse 79 07/17/21 15:16 Resp 18 07/17/21 15:16 BP 141/85 H 07/17/21 15:16 Pulse Ox 97 07/17/21 15:16 Body Mass Index 36.6 Const: Other: Awake alert orient x3 no acute distress Resp: Other: Clear to auscultation bilaterally no rales rhonchi wheezes Cardio: Other: No S4; positive S1-S2; GI: Other: Soft nontender nondistended normoactive bowel sounds no peritoneal signs Extrem: Other: No edema bilaterally Objective Data Active Medications Ascorbic Acid (Ascorbic Acid 250 Mg Tablet) 250 mg PO DAILY [facility] Last Admin: 07/17/21 09:48 Dose: 250 mg Documented by: DEVON Calcium Carbonate (Calcium Carbonate 500 Mg Tablet) 1,000 mg PO BID [facility] Last Admin: 07/17/21 09:48 Dose: 1,000 mg Documented by: DEVON Cyanocobalamin (Cyanocobalamin (Vitamin B-12) 1,000 Mcg Tablet) 1,000 mcg PO DAILY [facility] Last Admin: 07/17/21 09:48 Dose: 1,000 mcg Documented by: DEVON Dextrose (Dextrose 50 % 25 Gm/50 Ml Vial) 25 gm IVPUSH Q15M PRN; Protocol PRN Reason: per Hypoglycemia Standing Ord. Donepezil HCl (Donepezil Hcl 10 Mg Tablet) 10 mg PO DAILY [facility] Last Admin: 07/17/21 09:48 Dose: 10 mg Documented by: DEVON Duloxetine HCl (Duloxetine Hcl 60 Mg Capsule.Dr) 60 mg PO BID [facility] Last Admin: 07/17/21 09:48 Dose: 60 mg Documented by: DEVON Glucose (Glucose Gel 15 Gm Gel..Gram.) 15 gm PO Q15M PRN; Protocol PRN Reason: per Hypoglycemia Standing Ord. Hydromorphone HCl (Hydromorphone Hcl 0.5 Mg/0.5 Ml Syringe) 0.5 mg IVPUSH Q4H PRN; Protocol PRN Reason: Pain, Severe (Pain Scale 7-10) Last Admin: 07/17/21 15:26 Dose: 0.5 mg Documented by: DEVON Ceftriaxone Sodium 1 gm/ (Sodium Chloride) 50 mls @ 100 mls/hr IV Q24H [facility] Last Infusion: 07/17/21 05:24 Dose: 0 mls/hr Documented by: LUIS Cefotetan Disodium 2 gm/ (Sodium Chloride) 50 mls @ 100 mls/hr IV PREOP ONE Stop: 07/19/21 13:08 Insulin Glargine (Insulin Glargine,Hum.Rec.Anlog 100 Unit/Ml 10 Ml Vial) 30 unit SUBCUT BEDTIME [facility] Last Admin: 07/16/21 21:02 Dose: 30 unit Documented by: LUIS Insulin Human Lispro (Insulin Lispro 100 Unit/Ml 3 Ml Vial) 0.1 - 10 unit SUBCUT QIDACHS [facility]; Protocol Last Admin: 07/17/21 12:09 Dose: 6 unit Documented by: DEVON Losartan Potassium (Losartan Potassium 50 Mg Tablet) 50 mg PO DAILY [facility]; Protocol Last Admin: 07/17/21 09:49 Dose: 50 mg Documented by: DEVON Melatonin (Melatonin 3 Mg Tablet) 6 mg PO BEDTIME PRN PRN Reason: Insomnia Memantine (Memantine Hcl 10 Mg Tablet) 10 mg PO BID [facility] Last Admin: 07/17/21 09:49 Dose: 10 mg Documented by: DEVON Metoprolol Succinate (Metoprolol Succinate Er 50 Mg Tab.Er.24h) 50 mg PO DAILY [facility]; Protocol Last Admin: 07/17/21 09:48 Dose: 50 mg Documented by: DEVON Metronidazole (Metronidazole 500 Mg Tablet) 500 mg PO Q8H [facility] Last Admin: 07/17/21 12:09 Dose: 500 mg Documented by: DEVON Omeprazole (Omeprazole 20 Mg Capsule.) 20 mg PO DAILY@0630 [facility] Last Admin: 07/17/21 05:22 Dose: 20 mg Documented by: LUIS Pharmacy Consult (Consult Rx Perform Med Rec) 1 each MISCELLANE ONCE PRN PRN Reason: Consult order Sodium Chloride (0.9 % Sodium Chloride Flush 3 Ml Syringe) 3 ml IVFLUSH QSHIFT [facility] Last Admin: 07/17/21 09:48 Dose: 3 ml Documented by: DEVON Vitamin D (Cholecalciferol (Vitamin D3) 25 Mcg Tablet) 25 mcg PO DAILY [facility] Last Admin: 07/17/21 09:48 Dose: 25 mcg Documented by: DEVON Labs CBC & Chem 7: 07/17/21 05:57 07/17/21 05:57 Labs: Laboratory Results - last 24 hr 07/16/21 07/16/21 07/17/21 16:10 20:50 05:57 MCV 88.4 MCH 29.3 MCHC 33.1 RDW 14.4 Plt Count 169 MPV 11.0 Immature Gran % (Auto) 0.9 H Neut % (Auto) 57.8 Lymph % (Auto) 25.8 Blanco % (Auto) 9.6 Eos % (Auto) 5.2 H Baso % (Auto) 0.7 Lymph # (Auto) 2.1 [place] # (Auto) 0.8 Eos # (Auto) 0.4 Baso # (Auto) 0.1 Abs Immat Gran (auto) 0.07 H Absolute Neuts (auto) 4.7 Absolute Nucleated RBC 0.000 Nucleated RBC % (auto) 0.0 Anion Gap Estim Creat Clear Calc Estimated GFR POC Glucose 286 H 287 H Fasting Glucose Calcium Total Bilirubin AST ALT Alkaline Phosphatase Total Protein Albumin 07/17/21 07/17/21 07/17/21 05:57 07:35 11:38 MCV MCH MCHC RDW Plt Count MPV Immature Gran % (Auto) Neut % (Auto) Lymph % (Auto) Blanco % (Auto) Eos % (Auto) Baso % (Auto) Lymph # (Auto) [place] # (Auto) Eos # (Auto) Baso # (Auto) Abs Immat Gran (auto) Absolute Neuts (auto) Absolute Nucleated RBC Nucleated RBC % (auto) Anion Gap 13 Estim Creat Clear Calc 85.1 Estimated GFR > 60 POC Glucose 258 H 283 H Fasting Glucose 267 H Calcium 8.4 Total Bilirubin 2.1 H AST 51 H ALT 126 H Alkaline Phosphatase 365 H Total Protein 5.7 L Albumin 3.3 L Microbiology Microbiology Results: Microbiology 07/13/21 04:14 Blood Culture - Final Blood - Venous Clostridium perfringens Assessment and Plan (1) Acute calculous cholecystitis: Status: Acute (2) Diabetes: Status: Acute Assessment and Plan: 71-year-old male with a past medical history of hypertension, hyperlipidemia, d iabetes, coronary artery disease status post CABG, obesity, KATINA on CPAP, history of Alzheimer's dementia presented to the hospital with a chief complaint of right upper quadrant abdominal pain/noted to have acute cholecystitis/gallstones/transaminitis. Tolerating diet 1.Acute cholecystitis/gallstones Per surgery; scheduled for CCY 07/18/21 Pain control adequate.... tolerating diet 2. Bacteremia Will continue IV ceftriaxone/metronidazole/Cefotetan. As per ID, continue antibiotics pending cholecystectomy 3. Cholestatic LFTs Continue to trend pending CCY 07/18/21 4. Hypertension Continue losartan/metoprolol as per outpatient dosing 5. CAD Aspirin on hold pending procedure. Continue other therapies 6. Type 2 diabetes requiring insulin Continue sliding scale; Lantus added back follow response 7. GERD Continue PPI DVT prophylaxis: SCD boots Code status: Full code Quality Stroke Does the patient have a stroke diagnosis?: No VTE Prior VTE?: No VTE Risk Level:: Medical - moderate - high VTE Device Contraindication: N/A - Device Ordered VTE Drug Contraindication: Treatment Not Indicated
[2021-07-17 16:38] LABS: Glucose, Whole Blood 254 mg/dL (60-115)
[2021-07-17 20:22] LABS: Glucose, Whole Blood 345 mg/dL (60-115)
[2021-07-17] MEDS: Insulin Glargine,Hum.rec.anlog 100 UNIT/ML 10 ML VIAL 30 UNIT SUBCUT (20:49)
[2021-07-18] VITALS (8 sets, daily range): BP systolic 122–165; BP diastolic 70–110; PULSE 74–82; RESP 18–20; TEMP 36.1–36.7; O2SAT 93–98
[2021-07-18] MEDS: cefTRIAXone sodium 1 GM in 0.9 % Sodium Chloride 50 ML IV (04:58)
[2021-07-18] MEDS: metroNIDAZOLE 500 MG TABLET PO ×3 (04:59→20:54)
[2021-07-18] MEDS: Omeprazole 20 MG CAPSULE.DR PO (04:59)
[2021-07-18 07:55] LABS: Glucose, Whole Blood 235 mg/dL (60-115)
[2021-07-18 08:11] LABS: MANUAL DIFF FLAG NO
[2021-07-18 08:13] LABS: Basophils Absolute Auto 0.1 X10*3/uL (0.0-0.2); Basophils Percent Auto 0.7 % (0-2); Eosinophils Absolute Auto 0.3 X10*3/uL (0.0-0.4); Eosinophils Percent Auto 2.8 % (0-4); Hematocrit 47.9 % (42.0-52.0); Hemoglobin 15.9 g/dl (14.0-18.0); Imm Gran Abs Auto 0.08 X10*3/uL (0.00-0.03); Imm Gran Pct Auto 0.8 % (0.0-0.4); Lymphocytes Absolute Auto 2.4 X10*3/uL (1.2-4.9); Lymphocytes Percent Auto 22.8 % (20-40); Mean Corpuscular HGB Conc 33.2 g/dl (31.0-36.0); Mean Corpuscular Hemoglobin 29.4 pg (27.0-33.0); Mean Corpuscular Volume 88.5 fL (80.0-98.0); Mean Platelet Volume 11.6 fL (9.4-12.4); Monocytes Absolute Auto 0.9 X10*3/uL (0.1-1.2); Monocytes Percent Auto 8.4 % (2-11); Neutrophils Absolute Auto 6.8 x10*3/uL (2.0-8.3); Neutrophils Percent Auto 64.5 % (45-73); Platelet Count 194 X10*3/uL (160-400); Red Blood Count 5.41 X10*6/uL (4.60-5.80); Red Cell Distribution Width 14.7 % (11.0-16.0); White Blood Count 10.6 X10*3/uL (4.8-10.8)
[2021-07-18 08:33] LABS: Alanine Aminotransferase 105 U/L (0-40); Albumin Level 3.3 g/dL (3.5-5.0); Alkaline Phosphatase 366 U/L (39-117); Anion Gap 18 (12-20); Aspartate Amino Transferase 58 U/L (5-37); Bilirubin Total 1.9 mg/dL (0.0-1.0); Blood Urea Nitrogen 14 mg/dL (9-16); Calcium 8.7 mg/dL (8.4-10.2); Carbon Dioxide 23 mmol/L (22-29); Chloride 101 mmol/L (96-108); Estimated Glomerular Filt Rate > 60; Glucose Fasting 228 mg/dL (60-99); Potassium 4.2 mmol/L (3.3-5.1); Sodium 138 mmol/L (135-145); Total Protein 5.9 g/dL (6.5-8.0)
[2021-07-18] MEDS: 0.9 % Sodium Chloride Flush 3 ML SYRINGE IVFLUSH ×3 (09:04→20:55)
[2021-07-18] MEDS: Insulin Lispro 100 UNIT/ML 3 ML VIAL SUBCUT ×3 (09:04→16:38)
[2021-07-18] MEDS: DULoxetine HCl 60 MG CAPSULE.DR PO ×2 (09:05→20:54)
[2021-07-18] MEDS: Losartan Potassium 50 MG TABLET PO (09:05)
[2021-07-18] MEDS: Metoprolol Succinate ER 50 MG TAB.ER.24H PO (09:05)
[2021-07-18] MEDS: Memantine HCl 10 MG TABLET PO ×2 (09:05→20:54)
[2021-07-18] MEDS: Donepezil HCl 10 MG TABLET PO (09:05)
[2021-07-18] MEDS: Ascorbic Acid 250 MG TABLET PO (09:06)
[2021-07-18] MEDS: Cyanocobalamin (Vitamin B-12) 1,000 MCG TABLET 1000 MCG PO (09:06)
[2021-07-18] MEDS: Cholecalciferol (Vitamin D3) 25 MCG TABLET PO (09:06)
[2021-07-18 11:36] LABS: Glucose, Whole Blood 236 mg/dL (60-115)
[2021-07-18] MEDS: oxyCODONE HCl Immed Release 5 MG TABLET 10 MG PO ×2 (12:03→20:54)
[2021-07-18 16:18] LABS: Glucose, Whole Blood 212 mg/dL (60-115)
--- NOTE | 2021-07-18 17:42 | HO.PM.IMPN ---
Subjective Subjective Date of Service: 07/18/21 Interval History: made NPO last night secondary to pain after eating. Notes pain improved with NPO status. No acut Review of Systems denies chest pain Denies shortness of breath Denies nausea vomiting diarrhea Physical Exam Vital Signs: Vital Signs: Last Vital Signs Temp 97.4 F 07/18/21 15:56 Pulse 82 07/18/21 15:56 Resp 20 07/18/21 15:56 BP 141/85 H 07/18/21 15:56 Pulse Ox 97 07/18/21 15:56 Body Mass Index 36.6 Const: Other: Awake alert orient x3 no acute distress Resp: Other: Clear to auscultation bilaterally no rales rhonchi wheezes Cardio: Other: No S4; positive S1-S2; GI: Other: Soft nontender nondistended normoactive bowel sounds no peritoneal signs Extrem: Other: No edema bilaterally Objective Data Active Medications Ascorbic Acid (Ascorbic Acid 250 Mg Tablet) 250 mg PO DAILY [facility] Last Admin: 07/18/21 09:06 Dose: 250 mg Documented by: DEVON Calcium Carbonate (Calcium Carbonate 500 Mg Tablet) 1,000 mg PO BID [facility] Last Admin: 07/18/21 09:05 Dose: 1,000 mg Documented by: DEVON Cyanocobalamin (Cyanocobalamin (Vitamin B-12) 1,000 Mcg Tablet) 1,000 mcg PO DAILY [facility] Last Admin: 07/18/21 09:06 Dose: 1,000 mcg Documented by: DEVON Dextrose (Dextrose 50 % 25 Gm/50 Ml Vial) 25 gm IVPUSH Q15M PRN; Protocol PRN Reason: per Hypoglycemia Standing Ord. Donepezil HCl (Donepezil Hcl 10 Mg Tablet) 10 mg PO DAILY [facility] Last Admin: 07/18/21 09:05 Dose: 10 mg Documented by: DEVON Duloxetine HCl (Duloxetine Hcl 60 Mg Capsule.Dr) 60 mg PO BID [facility] Last Admin: 07/18/21 09:05 Dose: 60 mg Documented by: DEVON Glucose (Glucose Gel 15 Gm Gel..Gram.) 15 gm PO Q15M PRN; Protocol PRN Reason: per Hypoglycemia Standing Ord. Hydromorphone HCl (Hydromorphone Hcl 0.5 Mg/0.5 Ml Syringe) 0.5 mg IVPUSH Q4H PRN; Protocol PRN Reason: Pain, Moderate (Pain Scale 4-6 Ceftriaxone Sodium 1 gm/ (Sodium Chloride) 50 mls @ 100 mls/hr IV Q24H [facility] Last Infusion: 07/18/21 05:39 Dose: 0 mls/hr Documented by: INA Cefotetan Disodium 2 gm/ (Sodium Chloride) 50 mls @ 100 mls/hr IV PREOP ONE Stop: 07/19/21 13:08 Insulin Glargine (Insulin Glargine,Hum.Rec.Anlog 100 Unit/Ml 10 Ml Vial) 30 unit SUBCUT BEDTIME [facility] Last Admin: 07/17/21 20:49 Dose: 30 unit Documented by: INA Insulin Human Lispro (Insulin Lispro 100 Unit/Ml 3 Ml Vial) 0.1 - 10 unit SUBCUT QIDACHS [facility]; Protocol Last Admin: 07/18/21 16:38 Dose: 4 unit Documented by: DEVON Losartan Potassium (Losartan Potassium 50 Mg Tablet) 50 mg PO DAILY [facility]; Protocol Last Admin: 07/18/21 09:05 Dose: 50 mg Documented by: DEVON Melatonin (Melatonin 3 Mg Tablet) 6 mg PO BEDTIME PRN PRN Reason: Insomnia Memantine (Memantine Hcl 10 Mg Tablet) 10 mg PO BID [facility] Last Admin: 07/18/21 09:05 Dose: 10 mg Documented by: DEVON Metoprolol Succinate (Metoprolol Succinate Er 50 Mg Tab.Er.24h) 50 mg PO DAILY [facility]; Protocol Last Admin: 07/18/21 09:05 Dose: 50 mg Documented by: DEVON Metronidazole (Metronidazole 500 Mg Tablet) 500 mg PO Q8H [facility] Last Admin: 07/18/21 12:03 Dose: 500 mg Documented by: DEVON Omeprazole (Omeprazole 20 Mg Capsule.Dr) 20 mg PO DAILY@0630 [facility] Last Admin: 07/18/21 04:59 Dose: 20 mg Documented by: INA Oxycodone HCl (Oxycodone Hcl Immed Release 5 Mg Tablet) 10 mg PO Q6H PRN PRN Reason: Pain, Moderate (Pain Scale 4-6 Last Admin: 07/18/21 12:03 Dose: 10 mg Documented by: DEVON Pharmacy Consult (Consult Rx Perform Med Rec) 1 each MISCELLANE ONCE PRN PRN Reason: Consult order Sodium Chloride (0.9 % Sodium Chloride Flush 3 Ml Syringe) 3 ml IVFLUSH QSHIFT [facility] Last Admin: 07/18/21 16:38 Dose: 3 ml Documented by: DEVON Vitamin D (Cholecalciferol (Vitamin D3) 25 Mcg Tablet) 25 mcg PO DAILY [facility] Last Admin: 07/18/21 09:06 Dose: 25 mcg Documented by: DEVON Labs CBC & Chem 7: 07/18/21 07:41 07/18/21 07:41 Labs: Laboratory Results - last 24 hr 07/17/21 07/18/21 07/18/21 20:17 07:41 07:41 MCV 88.5 MCH 29.4 MCHC 33.2 RDW 14.7 Plt Count 194 MPV 11.6 Immature Gran % (Auto) 0.8 H Neut % (Auto) 64.5 Lymph % (Auto) 22.8 Garrett % (Auto) 8.4 Eos % (Auto) 2.8 Baso % (Auto) 0.7 Lymph # (Auto) 2.4 Garrett # (Auto) 0.9 Eos # (Auto) 0.3 Baso # (Auto) 0.1 Abs Immat Gran (auto) 0.08 H Absolute Neuts (auto) 6.8 Absolute Nucleated RBC 0.000 Nucleated RBC % (auto) 0.0 Anion Gap 18 Estim Creat Clear Calc 88.0 Estimated GFR > 60 POC Glucose 345 H Fasting Glucose 228 H Calcium 8.7 Total Bilirubin 1.9 H AST 58 H ALT 105 H Alkaline Phosphatase 366 H Total Protein 5.9 L Albumin 3.3 L 07/18/21 07/18/21 07/18/21 07:41 11:24 16:04 MCV MCH MCHC RDW Plt Count MPV Immature Gran % (Auto) Neut % (Auto) Lymph % (Auto) Garrett % (Auto) Eos % (Auto) Baso % (Auto) Lymph # (Auto) Garrett # (Auto) Eos # (Auto) Baso # (Auto) Abs Immat Gran (auto) Absolute Neuts (auto) Absolute Nucleated RBC Nucleated RBC % (auto) Anion Gap Estim Creat Clear Calc Estimated GFR POC Glucose 235 H 236 H 212 H Fasting Glucose Calcium Total Bilirubin AST ALT Alkaline Phosphatase Total Protein Albumin Assessment and Plan (1) Acute calculous cholecystitis: Status: Acute (2) Diabetes: Status: Acute (3) Elevated liver enzymes: Status: Acute Assessment and Plan: 71-year-old male with a past medical history of hypertension, hyperlipidemia, diabetes, coronary artery disease status post CABG, obesity, KATINA on CPAP, history of Alzheimer's dementia presented to the hospital with a chief complaint of right upper quadrant abdominal pain/noted to have acute cholecystitis/gallstones/transaminitis. Pain improved with NPO status pain 1.Acute cholecystitis/gallstones Per surgery; scheduled for CCY 07/18/21 Pain control adequate.... NPO 2. Bacteremia Will continue IV ceftriaxone/metronidazole/Cefotetan. As per ID, continue antibiotics pending cholecystectomy 3. Cholestatic LFTs Continue to trend pending CCY 07/18/21 4. Hypertension Continue losartan/metoprolol as per outpatient dosing 5. CAD Aspirin on hold pending procedure. Continue other therapies 6. Type 2 diabetes requiring insulin Continue sliding scale; Lantus added back follow response 7. GERD Continue PPI DVT prophylaxis: SCD boots Code status: Full code Quality Stroke Does the patient have a stroke diagnosis?: No VTE Prior VTE?: No VTE Risk Level:: Medical - moderate - high VTE Device Contraindication: N/A - Device Ordered VTE Drug Contraindication: Treatment Not Indicated
[2021-07-18 19:52] LABS: Glucose, Whole Blood 149 mg/dL (60-115)
[2021-07-18] MEDS: Insulin Glargine,Hum.rec.anlog 100 UNIT/ML 10 ML VIAL 30 UNIT SUBCUT (20:55)
[2021-07-18] MEDS: HYDROmorphone HCl 0.5 MG/0.5 ML SYRINGE IVPUSH (23:21)
[2021-07-19] VITALS (8 sets, daily range): BP systolic 132–160; BP diastolic 84–90; PULSE 80–88; RESP 15–20; TEMP 36.2–37; O2SAT 91–97
[2021-07-19] MEDS: cefTRIAXone sodium 1 GM in 0.9 % Sodium Chloride 50 ML IV (05:28)
[2021-07-19 06:00] LABS: MANUAL DIFF FLAG NO
[2021-07-19 06:07] LABS: Basophils Absolute Auto 0.1 X10*3/uL (0.0-0.2); Basophils Percent Auto 0.6 % (0-2); Eosinophils Absolute Auto 0.3 X10*3/uL (0.0-0.4); Eosinophils Percent Auto 1.9 % (0-4); Hematocrit 46.7 % (42.0-52.0); Hemoglobin 15.4 g/dl (14.0-18.0); Imm Gran Abs Auto 0.09 X10*3/uL (0.00-0.03); Imm Gran Pct Auto 0.7 % (0.0-0.4); Lymphocytes Absolute Auto 2.5 X10*3/uL (1.2-4.9); Lymphocytes Percent Auto 18.8 % (20-40); Mean Corpuscular Hemoglobin 29.3 pg (27.0-33.0); Mean Corpuscular Volume 88.8 fL (80.0-98.0); Mean Platelet Volume 11.2 fL (9.4-12.4); Monocytes Absolute Auto 1.2 X10*3/uL (0.1-1.2); Monocytes Percent Auto 8.9 % (2-11); Neutrophils Absolute Auto 9.3 x10*3/uL (2.0-8.3); Neutrophils Percent Auto 69.1 % (45-73); Platelet Count 187 X10*3/uL (160-400); Red Blood Count 5.26 X10*6/uL (4.60-5.80); Red Cell Distribution Width 15.1 % (11.0-16.0); White Blood Count 13.4 X10*3/uL (4.8-10.8)
[2021-07-19 06:10] LABS: INTERNATIONAL NORM RATIO 1.1 (0.9-1.1)
[2021-07-19 06:36] LABS: Alanine Aminotransferase 91 U/L (0-40); Albumin Level 3.3 g/dL (3.5-5.0); Alkaline Phosphatase 364 U/L (39-117); Anion Gap 17 (12-20); Aspartate Amino Transferase 59 U/L (5-37); Bilirubin Total 1.9 mg/dL (0.0-1.0); Blood Urea Nitrogen 12 mg/dL (9-16); Calcium 8.5 mg/dL (8.4-10.2); Carbon Dioxide 24 mmol/L (22-29); Chloride 100 mmol/L (96-108); Estimated Glomerular Filt Rate > 60; Glucose Fasting 134 mg/dL (60-99); Potassium 3.6 mmol/L (3.3-5.1); Sodium 137 mmol/L (135-145); Total Protein 5.8 g/dL (6.5-8.0)
[2021-07-19 07:16] LABS: Glucose, Whole Blood 155 mg/dL (60-115)
[2021-07-19] MEDS: HYDROmorphone HCl 0.5 MG/0.5 ML SYRINGE IVPUSH ×3 (08:42→16:39)
--- NOTE | 2021-07-19 08:44 | PM.PNGS ---
Subjective Subjective Date of Service: 07/19/21 Interval history: Says he still has some episodes of pain on the right upper quadrant No fever Physical Exam Vital Signs: Vital Signs: Last Vital Signs Temp 97.9 F 07/19/21 04:00 Pulse 80 07/19/21 08:00 Resp 20 07/19/21 08:00 BP 135/85 07/19/21 08:00 Pulse Ox 91 L 07/19/21 08:00 Body Mass Index 36.6 Const: Other: Using CPAP General: comfortable and no acute distress Resp: Effort & Inspection: normal respiratory effort Cardio: Rate: regular rate GI: Other: Some tenderness right upper quadrant on deep palpation Palpation (GI): Soft to palpation and not firm Objective Data Active Medications Ascorbic Acid (Ascorbic Acid 250 Mg Tablet) 250 mg PO DAILY [facility] Last Admin: 07/18/21 09:06 Dose: 250 mg Documented by: DEVON Calcium Carbonate (Calcium Carbonate 500 Mg Tablet) 1,000 mg PO BID [facility] Last Admin: 07/18/21 20:54 Dose: 1,000 mg Documented by: DIANA Cyanocobalamin (Cyanocobalamin (Vitamin B-12) 1,000 Mcg Tablet) 1,000 mcg PO DAILY [facility] Last Admin: 07/18/21 09:06 Dose: 1,000 mcg Documented by: DEVON Dextrose (Dextrose 50 % 25 Gm/50 Ml Vial) 25 gm IVPUSH Q15M PRN; Protocol PRN Reason: per Hypoglycemia Standing Ord. Donepezil HCl (Donepezil Hcl 10 Mg Tablet) 10 mg PO DAILY [facility] Last Admin: 07/18/21 09:05 Dose: 10 mg Documented by: DEVON Duloxetine HCl (Duloxetine Hcl 60 Mg Capsule.Dr) 60 mg PO BID [facility] Last Admin: 07/18/21 20:54 Dose: 60 mg Documented by: DIANA Glucose (Glucose Gel 15 Gm Gel..Gram.) 15 gm PO Q15M PRN; Protocol PRN Reason: per Hypoglycemia Standing Ord. Hydromorphone HCl (Hydromorphone Hcl 0.5 Mg/0.5 Ml Syringe) 0.5 mg IVPUSH Q4H PRN; Protocol PRN Reason: Pain, Moderate (Pain Scale 4-6 Last Admin: 07/18/21 23:21 Dose: 0.5 mg Documented by: DIANA Ceftriaxone Sodium 1 gm/ (Sodium Chloride) 50 mls @ 100 mls/hr IV Q24H [facility] Last Infusion: 07/19/21 06:04 Dose: 0 mls/hr Documented by: DIANA Cefotetan Disodium 2 gm/ (Sodium Chloride) 50 mls @ 100 mls/hr IV PREOP ONE Stop: 07/19/21 13:08 Insulin Glargine (Insulin Glargine,Hum.Rec.Anlog 100 Unit/Ml 10 Ml Vial) 30 unit SUBCUT BEDTIME [facility] Last Admin: 07/18/21 20:55 Dose: 30 unit Documented by: DIANA Insulin Human Lispro (Insulin Lispro 100 Unit/Ml 3 Ml Vial) 0.1 - 10 unit SUBCUT QIDACHS [facility]; Protocol Last Admin: 07/18/21 19:56 Dose: Not Given Documented by: DIANA Non-Admin Reason: No Insulin Coverage Losartan Potassium (Losartan Potassium 50 Mg Tablet) 50 mg PO DAILY [facility]; Protocol Last Admin: 07/18/21 09:05 Dose: 50 mg Documented by: DEVON Melatonin (Melatonin 3 Mg Tablet) 6 mg PO BEDTIME PRN PRN Reason: Insomnia Memantine (Memantine Hcl 10 Mg Tablet) 10 mg PO BID [facility] Last Admin: 07/18/21 20:54 Dose: 10 mg Documented by: DIANA Metoprolol Succinate (Metoprolol Succinate Er 50 Mg Tab.Er.24h) 50 mg PO DAILY [facility]; Protocol Last Admin: 07/18/21 09:05 Dose: 50 mg Documented by: DEVON Metronidazole (Metronidazole 500 Mg Tablet) 500 mg PO Q8H [facility] Last Admin: 07/19/21 04:30 Dose: Not Given Documented by: DIANA Non-Admin Reason: NPO Omeprazole (Omeprazole 20 Mg Capsule.Dr) 20 mg PO DAILY@0630 [facility] Last Admin: 07/19/21 05:26 Dose: Not Given Documented by: DIANA Non-Admin Reason: NPO Oxycodone HCl (Oxycodone Hcl Immed Release 5 Mg Tablet) 10 mg PO Q6H PRN PRN Reason: Pain, Moderate (Pain Scale 4-6 Last Admin: 07/18/21 20:54 Dose: 10 mg Documented by: DIANA Pharmacy Consult (Consult Rx Perform Med Rec) 1 each MISCELLANE ONCE PRN PRN Reason: Consult order Sodium Chloride (0.9 % Sodium Chloride Flush 3 Ml Syringe) 3 ml IVFLUSH QSHIFT [facility] Last Admin: 07/18/21 20:55 Dose: 3 ml Documented by: DIANA Vitamin D (Cholecalciferol (Vitamin D3) 25 Mcg Tablet) 25 mcg PO DAILY [facility] Last Admin: 07/18/21 09:06 Dose: 25 mcg Documented by: DEVON Labs CBC & Chem 7: 07/19/21 05:20 07/19/21 05:20 Labs: Laboratory Results - last 24 hr 07/18/21 07/18/21 07/18/21 11:24 16:04 19:47 MCV MCH MCHC RDW Plt Count MPV Immature Gran % (Auto) Neut % (Auto) Lymph % (Auto) [place] % (Auto) Eos % (Auto) Baso % (Auto) Lymph # (Auto) [place] # (Auto) Eos # (Auto) Baso # (Auto) Abs Immat Gran (auto) Absolute Neuts (auto) Absolute Nucleated RBC Nucleated RBC % (auto) PT INR Anion Gap Estim Creat Clear Calc Estimated GFR POC Glucose 236 H 212 H 149 H Fasting Glucose Calcium Total Bilirubin AST ALT Alkaline Phosphatase Total Protein Albumin 07/19/21 07/19/21 07/19/21 05:20 05:20 05:20 MCV 88.8 MCH 29.3 MCHC 33.0 RDW 15.1 Plt Count 187 MPV 11.2 Immature Gran % (Auto) 0.7 H Neut % (Auto) 69.1 Lymph % (Auto) 18.8 L [place] % (Auto) 8.9 Eos % (Auto) 1.9 Baso % (Auto) 0.6 Lymph # (Auto) 2.5 [place] # (Auto) 1.2 Eos # (Auto) 0.3 Baso # (Auto) 0.1 Abs Immat Gran (auto) 0.09 H Absolute Neuts (auto) 9.3 H Absolute Nucleated RBC 0.000 Nucleated RBC % (auto) 0.0 PT 12.0 INR 1.1 Anion Gap 17 Estim Creat Clear Calc 87.0 Estimated GFR > 60 POC Glucose Fasting Glucose 134 H D Calcium 8.5 Total Bilirubin 1.9 H AST 59 H ALT 91 H Alkaline Phosphatase 364 H Total Protein 5.8 L Albumin 3.3 L 07/19/21 07:10 MCV MCH MCHC RDW Plt Count MPV Immature Gran % (Auto) Neut % (Auto) Lymph % (Auto) [place] % (Auto) Eos % (Auto) Baso % (Auto) Lymph # (Auto) [place] # (Auto) Eos # (Auto) Baso # (Auto) Abs Immat Gran (auto) Absolute Neuts (auto) Absolute Nucleated RBC Nucleated RBC % (auto) PT INR Anion Gap Estim Creat Clear Calc Estimated GFR POC Glucose 155 H Fasting Glucose Calcium Total Bilirubin AST ALT Alkaline Phosphatase Total Protein Albumin Procedures Date of Service Date of Service: 07/19/21 Progress Note: A&P Assessment and plan (1) Acute calculous cholecystitis: Status: Acute Assessment and Plan: LFTs are much improved MRCP does not show CBD stones He says he still has some tenderness and wants to proceed with cholecystectomy I reviewed the technique of laparoscopic cholecystectomy and possible conversion to open I explained the risks including but not limited to bleeding, infections, injury to bowel, liver and bile duct, and risks of anesthesia, bile leak, retained stones, as well as the benefits and alternatives He understands and wants to proceed Daughter was updated and is aware of plan Fall Risk Details Current Medications: Current Medications Ascorbic Acid (Ascorbic Acid 250 Mg Tablet) 250 mg PO DAILY [facility] Last Admin: 07/18/21 09:06 Dose: 250 mg Documented by: Calcium Carbonate (Calcium Carbonate 500 Mg Tablet) 1,000 mg PO BID [facility] Last Admin: 07/18/21 20:54 Dose: 1,000 mg Documented by: Cyanocobalamin (Cyanocobalamin (Vitamin B-12) 1,000 Mcg Tablet) 1,000 mcg PO DAILY [facility] Last Admin: 07/18/21 09:06 Dose: 1,000 mcg Documented by: Dextrose (Dextrose 50 % 25 Gm/50 Ml Vial) 25 gm IVPUSH Q15M PRN; Protocol PRN Reason: per Hypoglycemia Standing Ord. Donepezil HCl (Donepezil Hcl 10 Mg Tablet) 10 mg PO DAILY [facility] Last Admin: 07/18/21 09:05 Dose: 10 mg Documented by: Duloxetine HCl (Duloxetine Hcl 60 Mg Capsule.Dr) 60 mg PO BID [facility] Last Admin: 07/18/21 20:54 Dose: 60 mg Documented by: Glucose (Glucose Gel 15 Gm Gel..Gram.) 15 gm PO Q15M PRN; Protocol PRN Reason: per Hypoglycemia Standing Ord. Hydromorphone HCl (Hydromorphone Hcl 0.5 Mg/0.5 Ml Syringe) 0.5 mg IVPUSH Q4H PRN; Protocol PRN Reason: Pain, Moderate (Pain Scale 4-6 Last Admin: 07/18/21 23:21 Dose: 0.5 mg Documented by: Ceftriaxone Sodium 1 gm/ (Sodium Chloride) 50 mls @ 100 mls/hr IV Q24H [facility] Last Infusion: 07/19/21 06:04 Dose: Infused Documented by: Cefotetan Disodium 2 gm/ (Sodium Chloride) 50 mls @ 100 mls/hr IV PREOP ONE Stop: 07/19/21 13:08 Insulin Glargine (Insulin Glargine,Hum.Rec.Anlog 100 Unit/Ml 10 Ml Vial) 30 unit SUBCUT BEDTIME [facility] Last Admin: 07/18/21 20:55 Dose: 30 unit Documented by: Insulin Human Lispro (Insulin Lispro 100 Unit/Ml 3 Ml Vial) 0.1 - 10 unit SUBCUT QIDACHS [facility]; Protocol Last Admin: 07/18/21 19:56 Dose: Not Given Documented by: Losartan Potassium (Losartan Potassium 50 Mg Tablet) 50 mg PO DAILY [facility]; Protocol Last Admin: 07/18/21 09:05 Dose: 50 mg Documented by: Melatonin (Melatonin 3 Mg Tablet) 6 mg PO BEDTIME PRN PRN Reason: Insomnia Memantine (Memantine Hcl 10 Mg Tablet) 10 mg PO BID [facility] Last Admin: 07/18/21 20:54 Dose: 10 mg Documented by: Metoprolol Succinate (Metoprolol Succinate Er 50 Mg Tab.Er.24h) 50 mg PO DAILY [facility]; Protocol Last Admin: 07/18/21 09:05 Dose: 50 mg Documented by: Metronidazole (Metronidazole 500 Mg Tablet) 500 mg PO Q8H [facility] Last Admin: 07/19/21 04:30 Dose: Not Given Documented by: Omeprazole (Omeprazole 20 Mg Capsule.) 20 mg PO DAILY@0630 [facility] Last Admin: 07/19/21 05:26 Dose: Not Given Documented by: Oxycodone HCl (Oxycodone Hcl Immed Release 5 Mg Tablet) 10 mg PO Q6H PRN PRN Reason: Pain, Moderate (Pain Scale 4-6 Last Admin: 07/18/21 20:54 Dose: 10 mg Documented by: Pharmacy Consult (Consult Rx Perform Med Rec) 1 each MISCELLANE ONCE PRN PRN Reason: Consult order Sodium Chloride (0.9 % Sodium Chloride Flush 3 Ml Syringe) 3 ml IVFLUSH QSHIFT [facility] Last Admin: 07/18/21 20:55 Dose: 3 ml Documented by: Vitamin D (Cholecalciferol (Vitamin D3) 25 Mcg Tablet) 25 mcg PO DAILY [facility] Last Admin: 07/18/21 09:06 Dose: 25 mcg Documented by: Time Spent With Patient Time: Total time spent is greater than 50% in coordination of care (as documented) at patient's floor/unit and/or counseling patient: Time with patient: 15 - 24 minutes Quality Stroke Does the patient have a stroke diagnosis?: No VTE Prior VTE?: No VTE Risk Level:: Medical - moderate - high VTE Device Contraindication: N/A - Device Ordered VTE Drug Contraindication: Treatment Not Indicated
[2021-07-19] MEDS: 0.9 % Sodium Chloride Flush 3 ML SYRINGE IVFLUSH ×3 (09:24→21:17)
--- NOTE | 2021-07-19 09:33 | MHC.CM.PN ---
Male 71 DX Cholecystitis. Possible OR today. Spoke with the Pts dtr/HCP. DP home with VNA services. [facility]. Dtr will provide transportation. [facility] for CPAP with oxygen.
[2021-07-19 11:19] LABS: Glucose, Whole Blood 164 mg/dL (60-115)
--- NOTE | 2021-07-19 11:55 | P.PNIM_ITS ---
Subjective Subjective Date of Service: 07/19/21 Review of Systems Follow up acute cholecystitis Still w ith some abdominal pain Denies nausea and vomiting All other symptoms are reviewed and are negative Physical Exam Vital Signs: Vital Signs: Last Vital Signs Temp 98.5 F 07/19/21 08:00 Pulse 80 07/19/21 08:00 Resp 18 07/19/21 08:42 BP 135/85 07/19/21 08:00 Pulse Ox 91 L 07/19/21 08:00 Body Mass Index 36.6 Appearing in no acute distress lung sounds are clear to auscultation heart regular rate rhythm, clear S1, S2 positive bowel sounds, abdomen is soft, ,mildly tender neuro patient is alert x3, no focal deficits Objective Data Active Medications Ascorbic Acid (Ascorbic Acid 250 Mg Tablet) 250 mg PO DAILY [facility] Last Admin: 07/19/21 09:22 Dose: Not Given Documented by: FLORECITA Non-Admin Reason: NPO Calcium Carbonate (Calcium Carbonate 500 Mg Tablet) 1,000 mg PO BID [facility] Last Admin: 07/19/21 09:23 Dose: Not Given Documented by: FLORECITA Non-Admin Reason: NPO Cyanocobalamin (Cyanocobalamin (Vitamin B-12) 1,000 Mcg Tablet) 1,000 mcg PO DAILY [facility] Last Admin: 07/19/21 09:23 Dose: Not Given Documented by: FLORECITA Non-Admin Reason: NPO Dextrose (Dextrose 50 % 25 Gm/50 Ml Vial) 25 gm IVPUSH Q15M PRN; Protocol PRN Reason: per Hypoglycemia Standing Ord. Donepezil HCl (Donepezil Hcl 10 Mg Tablet) 10 mg PO DAILY [facility] Last Admin: 07/19/21 09:23 Dose: Not Given Documented by: FLORECITA Non-Admin Reason: NPO Duloxetine HCl (Duloxetine Hcl 60 Mg Capsule.Dr) 60 mg PO BID [facility] Last Admin: 07/19/21 09:23 Dose: Not Given Documented by: FLORECITA Non-Admin Reason: NPO Glucose (Glucose Gel 15 Gm Gel..Gram.) 15 gm PO Q15M PRN; Protocol PRN Reason: per Hypoglycemia Standing Ord. Hydromorphone HCl (Hydromorphone Hcl 0.5 Mg/0.5 Ml Syringe) 0.5 mg IVPUSH Q4H PRN; Protocol PRN Reason: Pain, Moderate (Pain Scale 4-6 Last Admin: 07/19/21 11:42 Dose: 0.5 mg Documented by: FLORECITA Ceftriaxone Sodium 1 gm/ (Sodium Chloride) 50 mls @ 100 mls/hr IV Q24H [facility] Last Infusion: 07/19/21 06:04 Dose: 0 mls/hr Documented by: DIANA Cefotetan Disodium 2 gm/ (Sodium Chloride) 50 mls @ 100 mls/hr IV PREOP ONE Stop: 07/19/21 13:08 Insulin Glargine (Insulin Glargine,Hum.Rec.Anlog 100 Unit/Ml 10 Ml Vial) 30 unit SUBCUT BEDTIME [facility] Last Admin: 07/18/21 20:55 Dose: 30 unit Documented by: DIANA Insulin Human Lispro (Insulin Lispro 100 Unit/Ml 3 Ml Vial) 0.1 - 10 unit SUBCUT QIDACHS [facility]; Protocol Last Admin: 07/19/21 11:43 Dose: Not Given Documented by: FLORECITA Non-Admin Reason: No Insulin Coverage Losartan Potassium (Losartan Potassium 50 Mg Tablet) 50 mg PO DAILY [facility]; Protocol Last Admin: 07/19/21 09:24 Dose: Not Given Documented by: FLORECITA Non-Admin Reason: NPO Melatonin (Melatonin 3 Mg Tablet) 6 mg PO BEDTIME PRN PRN Reason: Insomnia Memantine (Memantine Hcl 10 Mg Tablet) 10 mg PO BID [facility] Last Admin: 07/19/21 09:23 Dose: Not Given Documented by: FLORECITA Non-Admin Reason: NPO Metoprolol Succinate (Metoprolol Succinate Er 50 Mg Tab.Er.24h) 50 mg PO DAILY [facility]; Protocol Last Admin: 07/19/21 09:24 Dose: Not Given Documented by: FLORECITA Non-Admin Reason: NPO Metronidazole (Metronidazole 500 Mg Tablet) 500 mg PO Q8H [facility] Last Admin: 07/19/21 04:30 Dose: Not Given Documented by: DIANA Non-Admin Reason: NPO Omeprazole (Omeprazole 20 Mg Capsule.Dr) 20 mg PO DAILY@0630 [facility] Last Admin: 07/19/21 05:26 Dose: Not Given Documented by: DIANA Non-Admin Reason: NPO Oxycodone HCl (Oxycodone Hcl Immed Release 5 Mg Tablet) 10 mg PO Q6H PRN PRN Reason: Pain, Moderate (Pain Scale 4-6 Last Admin: 07/18/21 20:54 Dose: 10 mg Documented by: DIANA Pharmacy Consult (Consult Rx Perform Med Rec) 1 each MISCELLANE ONCE PRN PRN Reason: Consult order Sodium Chloride (0.9 % Sodium Chloride Flush 3 Ml Syringe) 3 ml IVFLUSH QSHIFT [facility] Last Admin: 07/19/21 09:24 Dose: 3 ml Documented by: FLORECITA Vitamin D (Cholecalciferol (Vitamin D3) 25 Mcg Tablet) 25 mcg PO DAILY [facility] Last Admin: 07/19/21 09:23 Dose: Not Given Documented by: FLORECITA Non-Admin Reason: NPO Labs CBC & Chem 7: 07/19/21 05:20 07/19/21 05:20 Labs: Laboratory Results - last 24 hr 07/18/21 07/18/21 07/19/21 16:04 19:47 05:20 MCV 88.8 MCH 29.3 MCHC 33.0 RDW 15.1 Plt Count 187 MPV 11.2 Immature Gran % (Auto) 0.7 H Neut % (Auto) 69.1 Lymph % (Auto) 18.8 L [place] % (Auto) 8.9 Eos % (Auto) 1.9 Baso % (Auto) 0.6 Lymph # (Auto) 2.5 [place] # (Auto) 1.2 Eos # (Auto) 0.3 Baso # (Auto) 0.1 Abs Immat Gran (auto) 0.09 H Absolute Neuts (auto) 9.3 H Absolute Nucleated RBC 0.000 Nucleated RBC % (auto) 0.0 PT INR Anion Gap Estim Creat Clear Calc Estimated GFR POC Glucose 212 H 149 H Fasting Glucose Calcium Total Bilirubin AST ALT Alkaline Phosphatase Total Protein Albumin 07/19/21 07/19/21 07/19/21 05:20 05:20 07:10 MCV MCH MCHC RDW Plt Count MPV Immature Gran % (Auto) Neut % (Auto) Lymph % (Auto) [place] % (Auto) Eos % (Auto) Baso % (Auto) Lymph # (Auto) [place] # (Auto) Eos # (Auto) Baso # (Auto) Abs Immat Gran (auto) Absolute Neuts (auto) Absolute Nucleated RBC Nucleated RBC % (auto) PT 12.0 INR 1.1 Anion Gap 17 Estim Creat Clear Calc 87.0 Estimated GFR > 60 POC Glucose 155 H Fasting Glucose 134 H D Calcium 8.5 Total Bilirubin 1.9 H AST 59 H ALT 91 H Alkaline Phosphatase 364 H Total Protein 5.8 L Albumin 3.3 L 07/19/21 11:14 MCV MCH MCHC RDW Plt Count MPV Immature Gran % (Auto) Neut % (Auto) Lymph % (Auto) [place] % (Auto) Eos % (Auto) Baso % (Auto) Lymph # (Auto) [place] # (Auto) Eos # (Auto) Baso # (Auto) Abs Immat Gran (auto) Absolute Neuts (auto) Absolute Nucleated RBC Nucleated RBC % (auto) PT INR Anion Gap Estim Creat Clear Calc Estimated GFR POC Glucose 164 H Fasting Glucose Calcium Total Bilirubin AST ALT Alkaline Phosphatase Total Protein Albumin Assessment and Plan (1) Acute calculous cholecystitis: Status: Acute (2) Diabetes: Status: Acute (3) Bacteremia: Status: Acute (4) H/O: HTN (hypertension): Status: Acute Assessment and Plan: 71-year-old male with a past medical history of hypertension, hyperlipidemia, diabetes, coronary artery disease status post CABG, obesity, KATINA on CPAP, history of Alzheimer's dementia presented to the hospital with a chief complaint of right upper quadrant abdominal pain/noted to have acute cholecystitis/gallstones/transaminitis.? Pain? improved with NPO status pain Acute cholecystitis/gallstones OR today, NPO Pain management Bacteremia. Clostridium perfringens Escherichia coli Will continue IV ceftriaxone/metronidazole/Cefotetan. As per?ID, continue antibiotics pending cholecystectomy ? ? Cholestatic LFTs Continue to trend pending CCY 07/18/21 Hypertension Continue losartan/metoprolol as per outpatient dosing CAD Aspirin on hold pending procedure.? Continue other therapies Type 2 diabetes requiring insulin Continue sliding scale;? Lantus added back follow response GERD Continue PPI DVT prophylaxis: SCD boots Code status: Full code Attending Dr. Up Quality Stroke Does the patient have a stroke diagnosis?: No VTE Prior VTE?: No VTE Risk Level:: Medical - moderate - high VTE Device Contraindication: N/A - Device Ordered VTE Drug Contraindication: Treatment Not Indicated
--- NOTE | 2021-07-19 13:22 | HO.ANESPROP2 ---
HPI - Anesthesia Eval Consult details Narrative: 71 M for cholecytectomy New Onset A flutter . Will require Cardiology Consult , for optimization prior to Surgery . seen by cardiology : High sensitivity troponin from earlier in the admission was 9.5.? As he does not feel the palpitations, he could have been having atrial arrhythmias even prior to hospitalization.? Echocardiogram with LVEF 40-45% and basal inferior/inferoseptal akinesis.? Overall, intermediate cardiac risk for the gallbladder surgery and may proceed as planned.? Perioperative cardiac risks include myocardial infarction discussed with daughter. Otherwise, his blood pressure is on the higher side and hence need to continue beta-blockers, losartan without interruption.? May need higher doses too.? [facility] Active Problems Active Problems: All Active Problems (Updated 07/19/21 @ 13:11 by Annalisa Avalos RN) Acute calculous cholecystitis (Acute ~07/15/21) Diabetes (Acute) Elevated liver enzymes (Acute) Bacteremia (Acute) H/O: HTN (hypertension) (Acute) CAD s/ p CABG many years . 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 History of Problems with Anesthesia: No Social History Social History Household Members: None Housing: Apartment Do you presently have visiting nurse or other home services: No Alcohol intake: former Patient Tobacco Use Status: Current everyday Tobacco user Tobacco use type: Smokeless Tobacco Substance Use Type: Other service: No Current occupational status: retired Meds Allergies Allergy/AdvReac Type Severity Reaction Status Date / Time No Known Allergies Allergy Verified 06/20/21 22:50 Active Medications: Current Medications Ascorbic Acid (Ascorbic Acid 250 Mg Tablet) 250 mg PO DAILY MARIAM Last Admin: 07/19/21 09:22 Dose: Not Given Documented by: Calcium Carbonate (Calcium Carbonate 500 Mg Tablet) 1,000 mg PO BID [facility] Last Admin: 07/19/21 09:23 Dose: Not Given Documented by: Cyanocobalamin (Cyanocobalamin (Vitamin B-12) 1,000 Mcg Tablet) 1,000 mcg PO DAILY [facility] Last Admin: 07/19/21 09:23 Dose: Not Given Documented by: Dextrose (Dextrose 50 % 25 Gm/50 Ml Vial) 25 gm IVPUSH Q15M PRN; Protocol PRN Reason: per Hypoglycemia Standing Ord. Donepezil HCl (Donepezil Hcl 10 Mg Tablet) 10 mg PO DAILY [facility] Last Admin: 07/19/21 09:23 Dose: Not Given Documented by: Duloxetine HCl (Duloxetine Hcl 60 Mg Capsule.Dr) 60 mg PO BID [facility] Last Admin: 07/19/21 09:23 Dose: Not Given Documented by: Glucose (Glucose Gel 15 Gm Gel..Gram.) 15 gm PO Q15M PRN; Protocol PRN Reason: per Hypoglycemia Standing Ord. Hydromorphone HCl (Hydromorphone Hcl 0.5 Mg/0.5 Ml Syringe) 0.5 mg IVPUSH Q4H PRN; Protocol PRN Reason: Pain, Moderate (Pain Scale 4-6 Last Admin: 07/19/21 11:42 Dose: 0.5 mg Documented by: Ceftriaxone Sodium 1 gm/ (Sodium Chloride) 50 mls @ 100 mls/hr IV Q24H [facility] Last Infusion: 07/19/21 06:04 Dose: Infused Documented by: Insulin Glargine (Insulin Glargine,Hum.Rec.Anlog 100 Unit/Ml 10 Ml Vial) 30 unit SUBCUT BEDTIME [facility] Last Admin: 07/18/21 20:55 Dose: 30 unit Documented by: Insulin Human Lispro (Insulin Lispro 100 Unit/Ml 3 Ml Vial) 0.1 - 10 unit SUBCUT QIDACHS [facility]; Protocol Last Admin: 07/19/21 11:43 Dose: Not Given Documented by: Losartan Potassium (Losartan Potassium 50 Mg Tablet) 50 mg PO DAILY [facility]; Protocol Last Admin: 07/19/21 09:24 Dose: Not Given Documented by: Melatonin (Melatonin 3 Mg Tablet) 6 mg PO BEDTIME PRN PRN Reason: Insomnia Memantine (Memantine Hcl 10 Mg Tablet) 10 mg PO BID [facility] Last Admin: 07/19/21 09:23 Dose: Not Given Documented by: Metoprolol Succinate (Metoprolol Succinate Er 50 Mg Tab.Er.24h) 50 mg PO DAILY [facility]; Protocol Last Admin: 07/19/21 09:24 Dose: Not Given Documented by: Metronidazole (Metronidazole 500 Mg Tablet) 500 mg PO Q8H [facility] Last Admin: 07/19/21 13:03 Dose: Not Given Documented by: Omeprazole (Omeprazole 20 Mg Capsule.Dr) 20 mg PO DAILY@0630 [facility] Last Admin: 07/19/21 05:26 Dose: Not Given Documented by: Oxycodone HCl (Oxycodone Hcl Immed Release 5 Mg Tablet) 10 mg PO Q6H PRN PRN Reason: Pain, Moderate (Pain Scale 4-6 Last Admin: 07/18/21 20:54 Dose: 10 mg Documented by: Pharmacy Consult (Consult Rx Perform Med Rec) 1 each MISCELLANE ONCE PRN PRN Reason: Consult order Sodium Chloride (0.9 % Sodium Chloride Flush 3 Ml Syringe) [facility] Last Admin: 07/19/21 09:24 Dose: 3 ml Documented by: Vitamin D (Cholecalciferol (Vitamin D3) 25 Mcg Tablet) 25 mcg PO DAILY [facility] Last Admin: 07/19/21 09:23 Dose: Not Given Documented by: Home Medications Medication Instructions Recorded Confirmed Last Taken Type donepezil 10 mg tablet 1 tab PO DAILY 07/12/21 07/13/21 07/12/21 History empagliflozin 25 mg tablet 1 tab PO DAILY 07/12/21 07/13/21 07/12/21 History (Jardiance) ezetimibe 10 mg-simvastatin 80 mg 1 tab PO BEDTIME 07/12/21 07/13/21 07/12/21 History tablet glimepiride 4 mg tablet 1 tab PO BID 07/12/21 07/13/21 07/12/21 History insulin aspart U-100 100 unit/mL See Protocol 07/12/21 07/13/21 07/12/21 History (3 mL) subcutaneous pen (Novolog Flexpen U-100 Insulin aspart) insulin glargine U-300 conc 300 49 unit SUBCUT DAILY 07/12/21 07/13/21 07/12/21 History unit/mL (1.5 mL) subcutaneous pen (Toujeo SoloStar U-300 Insulin) pantoprazole 40 mg tablet,delayed 1 tab PO DAILY 07/12/21 07/13/21 07/12/21 History release ascorbic acid (vitamin C) 500 mg 250 mg PO DAILY 07/13/21 07/13/21 07/12/21 History tablet (Vitamin C) calcium carbonate 500 mg calcium 1,000 mg PO BID 07/13/21 07/13/21 07/12/21 History (1,250 mg) tablet (Calcium 500) cholecalciferol (vitamin D3) 25 25 mcg PO DAILY 07/13/21 07/13/21 07/12/21 History mcg (1,000 unit) tablet (Vitamin D3) cyanocobalamin (vitamin B-12) 1,000 mcg PO DAILY 07/13/21 07/13/21 07/12/21 History 1,000 mcg tablet duloxetine 60 mg capsule,delayed 60 mg PO BID 07/13/21 07/13/21 07/12/21 History release losartan 50 mg tablet 1 tab PO DAILY 07/13/21 07/13/21 07/12/21 History memantine 10 mg tablet 10 mg PO BID 07/13/21 07/13/21 Unknown History metoprolol succinate 50 mg 1 tab PO DAILY 07/13/21 07/13/21 07/12/21 History tablet,extended release 24 hr Exam Exam Date and Time: July 19, 2021 1322 Height,Weight and Vital Signs: Height 5 ft 7 in Weight 105.9 kg Last Vital Signs Temp 97.1 F 07/19/21 12:57 Pulse 82 07/19/21 12:57 Resp 16 07/19/21 12:57 BP 147/84 H 07/19/21 12:57 Pulse Ox 93 07/19/21 12:57 Pertinent Lab Results Pertinent Lab Results: Laboratory Tests 07/13/21 07/13/21 07/13/21 01:22 01:26 01:28 WBC 16.5 H RBC 5.87 H Hgb 17.5 Hct 53.0 H MCV 90.3 MCH 29.8 MCHC 33.0 RDW 13.4 Plt Count 200 MPV 10.5 Immature Gran % (Auto) 0.4 Neut % (Auto) 82.7 H Lymph % (Auto) 9.0 L [place] % (Auto) 7.3 Eos % (Auto) 0.1 Baso % (Auto) 0.5 Lymph # (Auto) 1.5 [place] # (Auto) 1.2 Eos # (Auto) 0.0 Baso # (Auto) 0.1 Abs Immat Gran (auto) 0.06 H Absolute Neuts (auto) 13.7 H Absolute Nucleated RBC 0.000 Nucleated RBC % (auto) 0.0 Smear Tech's Comments PT INR Sodium 137 Potassium 4.3 Chloride 98 Carbon Dioxide 20 L Anion Gap 23 H BUN 17 H Creatinine 1.21 Estim Creat Clear Calc 63.5 Estimated GFR 59 POC Glucose Random Glucose 244 H Fasting Glucose Lactic Acid Calcium 10.7 H D Total Bilirubin 4.1 H Direct Bilirubin 3.5 H AST 654 H ALT 542 H Alkaline Phosphatase 333 H D Troponin I High Sens Total Protein 7.8 Albumin 4.7 Lipase 215 H Urine Color Urine Appearance Urine pH Ur Specific [place] Urine Protein Urine Glucose (UA) Urine Ketones Urine Blood Urine Nitrite Ur Leukocyte Esterase Urine RBC Urine WBC Ur Squamous Epith Cells Urine Bacteria Urine Mucus Urine Yeast COVID-19 ([facility]) Negative COVID-19 [employer] See Note Blood Type Antibody Screen 07/13/21 07/13/21 07/13/21 01:28 04:07 04:09 WBC RBC Hgb Hct MCV MCH MCHC RDW Plt Count MPV Immature Gran % (Auto) Neut % (Auto) Lymph % (Auto) [place] % (Auto) Eos % (Auto) Baso % (Auto) Lymph # (Auto) [place] # (Auto) Eos # (Auto) Baso # (Auto) Abs Immat Gran (auto) Absolute Neuts (auto) Absolute Nucleated RBC Nucleated RBC % (auto) Smear Tech's Comments PT INR Sodium Potassium Chloride Carbon Dioxide Anion Gap BUN Creatinine Estim Creat Clear Calc Estimated GFR POC Glucose Random Glucose Fasting Glucose Lactic Acid 1.7 Calcium Total Bilirubin Direct Bilirubin AST ALT Alkaline Phosphatase Troponin I High Sens 9.5 Total Protein Albumin Lipase Urine Color YELLOW Urine Appearance CLEAR Urine pH 6.0 Ur Specific [place] 1.020 Urine Protein TRACE Urine Glucose (UA) >=1000 H Urine Ketones 40 Urine Blood NEG Urine Nitrite NEG Ur Leukocyte Esterase NEG Urine RBC 1-4 Urine WBC 1-4 Ur Squamous Epith Cells 1+ Urine Bacteria 1+ Urine Mucus 1+ Urine Yeast 1+ COVID-19 ([facility]) COVID-19 [employer] Blood Type Antibody Screen 07/13/21 07/13/21 07/13/21 06:47 06:47 06:47 WBC 17.7 H RBC 4.89 Hgb 14.5 Hct 43.7 MCV 89.4 MCH 29.7 MCHC 33.2 RDW 13.6 Plt Count 171 MPV 11.0 Immature Gran % (Auto) 0.6 H Neut % (Auto) 85.4 H Lymph % (Auto) 3.2 L [place] % (Auto) 9.8 Eos % (Auto) 0.7 Baso % (Auto) 0.3 Lymph # (Auto) 0.6 L [place] # (Auto) 1.7 H Eos # (Auto) 0.1 Baso # (Auto) 0.1 Abs Immat Gran (auto) 0.11 H Absolute Neuts (auto) 15.2 H Absolute Nucleated RBC 0.000 Nucleated RBC % (auto) 0.0 Smear Tech's Comments VERIFIED PT INR Sodium 138 Potassium 4.0 Chloride 105 Carbon Dioxide 18 L Anion Gap 19 BUN 16 Creatinine 1.03 Estim Creat Clear Calc 74.6 Estimated GFR > 60 POC Glucose Random Glucose 188 H Fasting Glucose Lactic Acid Calcium 9.3 D Total Bilirubin 3.8 H Direct Bilirubin 3.4 H AST 346 H ALT 381 H Alkaline Phosphatase 249 H D Troponin I High Sens Total Protein 5.7 L D Albumin 3.5 D Lipase Urine Color Urine Appearance Urine pH Ur Specific [place] Urine Protein Urine Glucose (UA) Urine Ketones Urine Blood Urine Nitrite Ur Leukocyte Esterase Urine RBC Urine WBC Ur Squamous Epith Cells Urine Bacteria Urine Mucus Urine Yeast COVID-19 ([facility]) COVID-19 Clin Com Blood Type Antibody Screen 07/13/21 07/13/21 07/13/21 07:32 12:20 17:08 WBC RBC Hgb Hct MCV MCH MCHC RDW Plt Count MPV Immature Gran % (Auto) Neut % (Auto) Lymph % (Auto) [place] % (Auto) Eos % (Auto) Baso % (Auto) Lymph # (Auto) [place] # (Auto) Eos # (Auto) Baso # (Auto) Abs Immat Gran (auto) Absolute Neuts (auto) Absolute Nucleated RBC Nucleated RBC % (auto) Smear Tech's Comments PT INR Sodium Potassium Chloride Carbon Dioxide Anion Gap BUN Creatinine Estim Creat Clear Calc Estimated GFR POC Glucose 181 H 144 H 124 H Random Glucose Fasting Glucose Lactic Acid Calcium Total Bilirubin Direct Bilirubin AST ALT Alkaline Phosphatase Troponin I High Sens Total Protein Albumin Lipase Urine Color Urine Appearance Urine pH Ur Specific [place] Urine Protein Urine Glucose (UA) Urine Ketones Urine Blood Urine Nitrite Ur Leukocyte Esterase Urine RBC Urine WBC Ur Squamous Epith Cells Urine Bacteria Urine Mucus Urine Yeast COVID-19 ([facility]) COVID-19 [employer] [facility] Blood Type Antibody Screen 07/13/21 07/14/21 07/14/21 21:39 05:53 05:53 WBC 9.6 RBC 4.70 Hgb 13.8 L Hct 42.5 MCV 90.4 MCH 29.4 MCHC 32.5 RDW 14.1 Plt Count 146 L MPV 11.1 Immature Gran % (Auto) Neut % (Auto) Lymph % (Auto) [place] % (Auto) Eos % (Auto) Baso % (Auto) Lymph # (Auto) [place] # (Auto) Eos # (Auto) Baso # (Auto) Abs Immat Gran (auto) Absolute Neuts (auto) Absolute Nucleated RBC 0.000 Nucleated RBC % (auto) 0.0 Smear Tech's Comments PT INR Sodium 137 Potassium 3.6 Chloride 104 Carbon Dioxide 19 L Anion Gap 18 BUN 17 H Creatinine 0.98 Estim Creat Clear Calc 79.0 Estimated GFR > 60 POC Glucose 126 H Random Glucose 129 H Fasting Glucose Lactic Acid Calcium 8.5 D Total Bilirubin 4.8 H Direct Bilirubin 4.2 H AST 172 H ALT 276 H Alkaline Phosphatase 275 H Troponin I High Sens Total Protein 5.6 L Albumin 3.4 L Lipase Urine Color Urine Appearance Urine pH Ur Specific [place] Urine Protein Urine Glucose (UA) Urine Ketones Urine Blood Urine Nitrite Ur Leukocyte Esterase Urine RBC Urine WBC Ur Squamous Epith Cells Urine Bacteria Urine Mucus Urine Yeast COVID-19 ([facility]) COVID-19 [facility] Blood Type Antibody Screen 07/14/21 07/14/21 07/14/21 07:27 11:03 16:04 WBC RBC Hgb Hct MCV MCH MCHC RDW Plt Count MPV Immature Gran % (Auto) Neut % (Auto) Lymph % (Auto) [place] % (Auto) Eos % (Auto) Baso % (Auto) Lymph # (Auto) [place] # (Auto) Eos # (Auto) Baso # (Auto) Abs Immat Gran (auto) Absolute Neuts (auto) Absolute Nucleated RBC Nucleated RBC % (auto) Smear Tech's Comments PT INR Sodium Potassium Chloride Carbon Dioxide Anion Gap BUN Creatinine Estim Creat Clear Calc Estimated GFR POC Glucose 117 H 175 H 162 H Random Glucose Fasting Glucose Lactic Acid Calcium Total Bilirubin Direct Bilirubin AST ALT Alkaline Phosphatase Troponin I High Sens Total Protein Albumin Lipase Urine Color Urine Appearance Urine pH Ur Specific [place] Urine Protein Urine Glucose (UA) Urine Ketones Urine Blood Urine Nitrite Ur Leukocyte Esterase Urine RBC Urine WBC Ur Squamous Epith Cells Urine Bacteria Urine Mucus Urine Yeast COVID-19 ([facility]) COVID-19 [facility] Blood Type Antibody Screen 07/14/21 07/15/21 07/15/21 19:58 07:39 08:18 WBC 7.5 RBC 5.54 Hgb 16.1 Hct 49.1 MCV 88.6 MCH 29.1 MCHC 32.8 RDW 13.8 Plt Count 157 L MPV 11.0 Immature Gran % (Auto) 0.4 Neut % (Auto) 67.9 Lymph % (Auto) 13.4 L [place] % (Auto) 11.9 H Eos % (Auto) 5.7 H Baso % (Auto) 0.7 Lymph # (Auto) 1.0 L [place] # (Auto) 0.9 Eos # (Auto) 0.4 Baso # (Auto) 0.1 Abs Immat Gran (auto) 0.03 Absolute Neuts (auto) 5.1 Absolute Nucleated RBC 0.000 Nucleated RBC % (auto) 0.0 Smear Tech's Comments PT INR Sodium Potassium Chloride Carbon Dioxide Anion Gap BUN Creatinine Estim Creat Clear Calc Estimated GFR POC Glucose 201 H 179 H Random Glucose Fasting Glucose Lactic Acid Calcium Total Bilirubin Direct Bilirubin AST ALT Alkaline Phosphatase Troponin I High Sens Total Protein Albumin Lipase Urine Color Urine Appearance Urine pH Ur Specific [place] Urine Protein Urine Glucose (UA) Urine Ketones Urine Blood Urine Nitrite Ur Leukocyte Esterase Urine RBC Urine WBC Ur Squamous Epith Cells Urine Bacteria Urine Mucus Urine Yeast COVID-19 ([facility]IAO) COVID-19 [employer] [facility] Blood Type Antibody Screen 07/15/21 07/15/21 07/15/21 08:18 11:10 16:15 WBC RBC Hgb Hct MCV MCH MCHC RDW Plt Count MPV Immature Gran % (Auto) Neut % (Auto) Lymph % (Auto) [place] % (Auto) Eos % (Auto) Baso % (Auto) Lymph # (Auto) [place] # (Auto) Eos # (Auto) Baso # (Auto) Abs Immat Gran (auto) Absolute Neuts (auto) Absolute Nucleated RBC Nucleated RBC % (auto) Smear Tech's Comments PT INR Sodium 136 Potassium 3.8 Chloride 105 Carbon Dioxide 19 L Anion Gap 16 BUN 14 Creatinine 0.86 Estim Creat Clear Calc 90.0 Estimated GFR > 60 POC Glucose 334 H 379 H* Random Glucose Fasting Glucose 186 H Lactic Acid Calcium 8.5 Total Bilirubin 4.2 H Direct Bilirubin AST 125 H ALT 210 H Alkaline Phosphatase 360 H D Troponin I High Sens Total Protein 6.0 L Albumin 3.5 Lipase Urine Color Urine Appearance Urine pH Ur Specific [place] Urine Protein Urine Glucose (UA) Urine Ketones Urine Blood Urine Nitrite Ur Leukocyte Esterase Urine RBC Urine WBC Ur Squamous Epith Cells Urine Bacteria Urine Mucus Urine Yeast COVID-19 ([facility]IAO) [employer] Blood Type Antibody Screen 07/15/21 07/16/21 07/16/21 20:02 05:49 05:49 WBC 7.7 RBC 5.16 Hgb 15.4 Hct 45.8 MCV 88.8 MCH 29.8 MCHC 33.6 RDW 14.2 Plt Count 167 MPV 11.7 Immature Gran % (Auto) 0.4 Neut % (Auto) 65.3 Lymph % (Auto) 15.6 L [place] % (Auto) 12.5 H Eos % (Auto) 5.5 H Baso % (Auto) 0.7 Lymph # (Auto) 1.2 [place] # (Auto) 1.0 Eos # (Auto) 0.4 Baso # (Auto) 0.1 Abs Immat Gran (auto) 0.03 Absolute Neuts (auto) 5.0 Absolute Nucleated RBC 0.000 Nucleated RBC % (auto) 0.0 Smear Tech's Comments PT INR Sodium 136 Potassium 4.0 Chloride 101 Carbon Dioxide 26 Anion Gap 13 BUN 13 Creatinine 1.01 Estim Creat Clear Calc 76.6 Estimated GFR > 60 POC Glucose 345 H Random Glucose Fasting Glucose 234 H Lactic Acid Calcium 8.7 Total Bilirubin 3.2 H Direct Bilirubin AST 99 H ALT 168 H Alkaline Phosphatase 375 H Troponin I High Sens Total Protein 5.6 L Albumin 3.2 L Lipase Urine Color Urine Appearance Urine pH Ur Specific [place] Urine Protein Urine Glucose (UA) Urine Ketones Urine Blood Urine Nitrite Ur Leukocyte Esterase Urine RBC Urine WBC Ur Squamous Epith Cells Urine Bacteria Urine Mucus Urine Yeast COVID-19 ([facility]IAO) COVID-19 [employer] Blood Type Antibody Screen 07/16/21 07/16/21 07/16/21 07:32 11:18 16:10 WBC RBC Hgb Hct MCV MCH MCHC RDW Plt Count MPV Immature Gran % (Auto) Neut % (Auto) Lymph % (Auto) [place] % (Auto) Eos % (Auto) Baso % (Auto) Lymph # (Auto) [place] # (Auto) Eos # (Auto) Baso # (Auto) Abs Immat Gran (auto) Absolute Neuts (auto) Absolute Nucleated RBC Nucleated RBC % (auto) Smear Tech's Comments PT INR Sodium Potassium Chloride Carbon Dioxide Anion Gap BUN Creatinine Estim Creat Clear Calc Estimated GFR POC Glucose 227 H 245 H 286 H Random Glucose Fasting Glucose Lactic Acid Calcium Total Bilirubin Direct Bilirubin AST ALT Alkaline Phosphatase Troponin I High Sens Total Protein Albumin Lipase Urine Color Urine Appearance Urine pH Ur Specific [place] Urine Protein Urine Glucose (UA) Urine Ketones Urine Blood Urine Nitrite Ur Leukocyte Esterase Urine RBC Urine WBC Ur Squamous Epith Cells Urine Bacteria Urine Mucus Urine Yeast COVID-19 ([facility]IAO) COVID-19 Clin Com Blood Type Antibody Screen 07/16/21 07/17/21 07/17/21 20:50 05:57 05:57 WBC 8.1 RBC 5.26 Hgb 15.4 Hct 46.5 MCV 88.4 MCH 29.3 MCHC 33.1 RDW 14.4 Plt Count 169 MPV 11.0 Immature Gran % (Auto) 0.9 H Neut % (Auto) 57.8 Lymph % (Auto) 25.8 [place] % (Auto) 9.6 Eos % (Auto) 5.2 H Baso % (Auto) 0.7 Lymph # (Auto) 2.1 [place] # (Auto) 0.8 Eos # (Auto) 0.4 Baso # (Auto) 0.1 Abs Immat Gran (auto) 0.07 H Absolute Neuts (auto) 4.7 Absolute Nucleated RBC 0.000 Nucleated RBC % (auto) 0.0 Smear Tech's Comments PT INR Sodium 137 Potassium 4.1 Chloride 102 Carbon Dioxide 26 Anion Gap 13 BUN 15 Creatinine 0.91 Estim Creat Clear Calc 85.1 Estimated GFR > 60 POC Glucose 287 H Random Glucose Fasting Glucose 267 H Lactic Acid Calcium 8.4 Total Bilirubin 2.1 H Direct Bilirubin AST 51 H ALT 126 H Alkaline Phosphatase 365 H Troponin I High Sens Total Protein 5.7 L Albumin 3.3 L Lipase Urine Color Urine Appearance Urine pH Ur Specific [place] Urine Protein Urine Glucose (UA) Urine Ketones Urine Blood Urine Nitrite Ur Leukocyte Esterase Urine RBC Urine WBC Ur Squamous Epith Cells Urine Bacteria Urine Mucus Urine Yeast COVID-19 (XIAO) [employer] Blood Type Antibody Screen 07/17/21 07/17/21 07/17/21 07:35 11:38 16:29 WBC RBC Hgb Hct MCV MCH MCHC RDW Plt Count MPV Immature Gran % (Auto) Neut % (Auto) Lymph % (Auto) [place] % (Auto) Eos % (Auto) Baso % (Auto) Lymph # (Auto) [place] # (Auto) Eos # (Auto) Baso # (Auto) Abs Immat Gran (auto) Absolute Neuts (auto) Absolute Nucleated RBC Nucleated RBC % (auto) Smear Tech's Comments PT INR Sodium Potassium Chloride Carbon Dioxide Anion Gap BUN Creatinine Estim Creat Clear Calc Estimated GFR POC Glucose 258 H 283 H 254 H Random Glucose Fasting Glucose Lactic Acid Calcium Total Bilirubin Direct Bilirubin AST ALT Alkaline Phosphatase Troponin I High Sens Total Protein Albumin Lipase Urine Color Urine Appearance Urine pH Ur Specific [place] Urine Protein Urine Glucose (UA) Urine Ketones Urine Blood Urine Nitrite Ur Leukocyte Esterase Urine RBC Urine WBC Ur Squamous Epith Cells Urine Bacteria Urine Mucus Urine Yeast COVID-19 ([facility]IA[facility]) COVID-19 [facility] Blood Type Antibody Screen 07/17/21 07/18/21 07/18/21 20:17 07:41 07:41 WBC 10.6 RBC 5.41 Hgb 15.9 Hct 47.9 MCV 88.5 MCH 29.4 MCHC 33.2 RDW 14.7 Plt Count 194 MPV 11.6 Immature Gran % (Auto) 0.8 H Neut % (Auto) 64.5 Lymph % (Auto) 22.8 [place] % (Auto) 8.4 Eos % (Auto) 2.8 Baso % (Auto) 0.7 Lymph # (Auto) 2.4 [place] # (Auto) 0.9 Eos # (Auto) 0.3 Baso # (Auto) 0.1 Abs Immat Gran (auto) 0.08 H Absolute Neuts (auto) 6.8 Absolute Nucleated RBC 0.000 Nucleated RBC % (auto) 0.0 Smear Tech's Comments PT INR Sodium 138 Potassium 4.2 Chloride 101 Carbon Dioxide 23 Anion Gap 18 BUN 14 Creatinine 0.88 Estim Creat Clear Calc 88.0 Estimated GFR > 60 POC Glucose 345 H Random Glucose Fasting Glucose 228 H Lactic Acid Calcium 8.7 Total Bilirubin 1.9 H Direct Bilirubin AST 58 H ALT 105 H Alkaline Phosphatase 366 H Troponin I High Sens Total Protein 5.9 L Albumin 3.3 L Lipase Urine Color Urine Appearance Urine pH Ur Specific [place] Urine Protein Urine Glucose (UA) Urine Ketones Urine Blood Urine Nitrite Ur Leukocyte Esterase Urine RBC Urine WBC Ur Squamous Epith Cells Urine Bacteria Urine Mucus Urine Yeast COVID-19 ([facility]) COVID-19 [employer] Blood Type Antibody Screen 07/18/21 07/18/21 07/18/21 07:41 11:24 16:04 WBC RBC Hgb Hct MCV MCH MCHC RDW Plt Count MPV Immature Gran % (Auto) Neut % (Auto) Lymph % (Auto) [place] % (Auto) Eos % (Auto) Baso % (Auto) Lymph # (Auto) [place] # (Auto) Eos # (Auto) Baso # (Auto) Abs Immat Gran (auto) Absolute Neuts (auto) Absolute Nucleated RBC Nucleated RBC % (auto) Smear Tech's Comments PT INR Sodium Potassium Chloride Carbon Dioxide Anion Gap BUN Creatinine Estim Creat Clear Calc Estimated GFR POC Glucose 235 H 236 H 212 H Random Glucose Fasting Glucose Lactic Acid Calcium Total Bilirubin Direct Bilirubin AST ALT Alkaline Phosphatase Troponin I High Sens Total Protein Albumin Lipase Urine Color Urine Appearance Urine pH Ur Specific [place] Urine Protein Urine Glucose (UA) Urine Ketones Urine Blood Urine Nitrite Ur Leukocyte Esterase Urine RBC Urine WBC Ur Squamous Epith Cells Urine Bacteria Urine Mucus Urine Yeast COVID-19 ([facility]) COVID-19 [employer] Blood Type Antibody Screen 07/18/21 07/19/21 07/19/21 19:47 05:20 05:20 WBC 13.4 H RBC 5.26 Hgb 15.4 Hct 46.7 MCV 88.8 MCH 29.3 MCHC 33.0 RDW 15.1 Plt Count 187 MPV 11.2 Immature Gran % (Auto) 0.7 H Neut % (Auto) 69.1 Lymph % (Auto) 18.8 L [place] % (Auto) 8.9 Eos % (Auto) 1.9 Baso % (Auto) 0.6 Lymph # (Auto) 2.5 [place] # (Auto) 1.2 Eos # (Auto) 0.3 Baso # (Auto) 0.1 Abs Immat Gran (auto) 0.09 H Absolute Neuts (auto) 9.3 H Absolute Nucleated RBC 0.000 Nucleated RBC % (auto) 0.0 Smear Tech's Comments PT 12.0 INR 1.1 Sodium Potassium Chloride Carbon Dioxide Anion Gap BUN Creatinine Estim Creat Clear Calc Estimated GFR POC Glucose 149 H Random Glucose Fasting Glucose Lactic Acid Calcium Total Bilirubin Direct Bilirubin AST ALT Alkaline Phosphatase Troponin I High Sens Total Protein Albumin Lipase Urine Color Urine Appearance Urine pH Ur Specific [place] Urine Protein Urine Glucose (UA) Urine Ketones Urine Blood Urine Nitrite Ur Leukocyte Esterase Urine RBC Urine WBC Ur Squamous Epith Cells Urine Bacteria Urine Mucus Urine Yeast COVID-19 ([facility]) [facility] Blood Type Antibody Screen 07/19/21 07/19/21 07/19/21 05:20 07:10 11:14 WBC RBC Hgb Hct MCV MCH MCHC RDW Plt Count MPV Immature Gran % (Auto) Neut % (Auto) Lymph % (Auto) [place] % (Auto) Eos % (Auto) Baso % (Auto) Lymph # (Auto) [place] # (Auto) Eos # (Auto) Baso # (Auto) Abs Immat Gran (auto) Absolute Neuts (auto) Absolute Nucleated RBC Nucleated RBC % (auto) Smear Tech's Comments PT INR Sodium 137 Potassium 3.6 Chloride 100 Carbon Dioxide 24 Anion Gap 17 BUN 12 Creatinine 0.89 Estim Creat Clear Calc 87.0 Estimated GFR > 60 POC Glucose 155 H 164 H Random Glucose Fasting Glucose 134 H D Lactic Acid Calcium 8.5 Total Bilirubin 1.9 H Direct Bilirubin AST 59 H ALT 91 H Alkaline Phosphatase 364 H Troponin I High Sens Total Protein 5.8 L Albumin 3.3 L Lipase Urine Color Urine Appearance Urine pH Ur Specific Lindsay Urine Protein Urine Glucose (UA) Urine Ketones Urine Blood Urine Nitrite Ur Leukocyte Esterase Urine RBC Urine WBC Ur Squamous Epith Cells Urine Bacteria Urine Mucus Urine Yeast COVID-19 (XIAO) COVIDSpectrumDNA Blood Type Antibody Screen 07/19/21 12:33 WBC RBC Hgb Hct MCV MCH MCHC RDW Plt Count MPV Immature Gran % (Auto) Neut % (Auto) Lymph % (Auto) [place] % (Auto) Eos % (Auto) Baso % (Auto) Lymph # (Auto) [place] # (Auto) Eos # (Auto) Baso # (Auto) Abs Immat Gran (auto) Absolute Neuts (auto) Absolute Nucleated RBC Nucleated RBC % (auto) Smear Tech's Comments PT INR Sodium Potassium Chloride Carbon Dioxide Anion Gap BUN Creatinine Estim Creat Clear Calc Estimated GFR POC Glucose Random Glucose Fasting Glucose Lactic Acid Calcium Total Bilirubin Direct Bilirubin AST ALT Alkaline Phosphatase Troponin I High Sens Total Protein Albumin Lipase Urine Color Urine Appearance Urine pH Ur Specific Lindsay Urine Protein Urine Glucose (UA) Urine Ketones Urine Blood Urine Nitrite Ur Leukocyte Esterase Urine RBC Urine WBC Ur Squamous Epith Cells Urine Bacteria Urine Mucus Urine Yeast COVID-19 (XIAO) COVID-19 Clin Com Blood Type A Negative Antibody Screen NEGATIVE Airway Mallampati Class: III TM Dist: >3cm Neck ROM: Full Loose/Missing/Broken Teeth: Yes Heart: irregular Lungs: bl breath sounds Assessment and Plan Final Anesthetic Review Family History of Problems with Anesthesia: No History of Problems with Anesthesia: No NPO: Yes ASA Class: III Final Preanesthetic Review: Meds/Allgs Chart Reviewed and Anes Risks/Benef Reviewed Patient Risk: Intermediate Procedure Risk: Intermediate Anesthetic Plan Anesthetic Plan: GA Disposition: Standard PACU
--- NOTE | 2021-07-19 13:35 | ECG_ITS ---
Test Reason : rhythm check Blood Pressure : / mmHG Vent. Rate : 082 BPM Atrial Rate : 328 BPM P-R Int : 000 ms QRS Dur : 104 ms QT Int : 394 ms P-R-T Axes : 269 -26 149 degrees QTc Int : 460 ms Atrial flutter with 4:1 A-V conduction Inferior infarct , age undetermined RSR' or QR pattern in V1 suggests right ventricular conduction delay Abnormal ECG When compared with ECG of 13-JUL-2021 01:17, Atrial flutter has replaced Sinus rhythm Inferior infarct is now Present Nonspecific T wave abnormality, worse in Lateral leads Referred By: Forrest Scruggs Electronically Signed By:LEONEL GEORGE MD
--- NOTE | 2021-07-19 13:48 | PC.NURSE ---
Skin assessment completed today. Patient has no skin issues or open areas at this time.
--- NOTE | 2021-07-19 13:51 | PC.NURSE ---
Skin assessment completed today. Patient has no skin issues or open areas. He is going to have a lap lis today or tomorrow by Dr. Padilla.
--- NOTE | 2021-07-19 13:52 | PC.NURSE ---
patient had ekg changes. anesthesia did a repeat ekg and spoke to maria luisa morse regarding his condition. no cp. asymptomatic. patient is in atrial flutter. md jimenez spoke to daughter and is aware of the plan of care. procedure is cancelled.
--- NOTE | 2021-07-19 16:33 | P.EN_ITS ---
Event Note Date of Service: 07/19/21 Event Note: Patient was in preop area for laparoscopic cholecystectomy gambling monitor however suggested atrial flutter -confirmed by EKG 12 lead This is a new finding compared to EKG from last week In view of his cardiac history, anesthesiologists has recommended to not go ahe ad with procedure until after patient is evaluated by the cloth spreader Abdomen is otherwise soft and benign Lap cholecystectomy on hold at this time Angy ruelas
--- NOTE | 2021-07-19 16:33 | PM.EVENT ---
Event Note Date of Service: 07/19/21 Event Note: Patient was in preop area for laparoscopic cholecystectomy pond sawyer however suggested atrial flutter -confirmed by EKG 12 lead This is a new finding compared to EKG from last week In view of his cardiac history, anesthesiologists has recommended to not go ahead with procedure until after patient is evaluated by the building and construction manager Abdomen is otherwise soft and benign Lap cholecystectomy on hold at this time Angy ruelas
[2021-07-19 16:34] LABS: Glucose, Whole Blood 146 mg/dL (60-115)
[2021-07-19] MEDS: metroNIDAZOLE 500 MG TABLET PO (16:41)
[2021-07-19 20:33] LABS: Glucose, Whole Blood 306 mg/dL (60-115)
[2021-07-19] MEDS: oxyCODONE HCl Immed Release 5 MG TABLET 10 MG PO (21:16)
[2021-07-19] MEDS: Memantine HCl 10 MG TABLET PO (21:17)
[2021-07-19] MEDS: Insulin Lispro 100 UNIT/ML 3 ML VIAL SUBCUT (21:17)
[2021-07-19] MEDS: Insulin Glargine,Hum.rec.anlog 100 UNIT/ML 10 ML VIAL 30 UNIT SUBCUT (21:17)
[2021-07-19] MEDS: DULoxetine HCl 60 MG CAPSULE.DR PO (21:17)
[2021-07-20] VITALS (9 sets, daily range): BP systolic 125–171; BP diastolic 67–91; PULSE 52–88; RESP 16–22; TEMP 36.6–36.7; O2SAT 92–96
[2021-07-20] MEDS: metroNIDAZOLE 500 MG TABLET PO ×3 (01:08→15:01)
[2021-07-20] MEDS: HYDROmorphone HCl 0.5 MG/0.5 ML SYRINGE IVPUSH ×2 (01:13→11:49)
--- NOTE | 2021-07-20 04:39 | PC.NURSE ---
ceftriaxone order discontinued automatically. Pharmacy called, they said the system automatically discontinues after 7 days. MD notified. Ceftriaxone reordered.
[2021-07-20] MEDS: cefTRIAXone sodium 1 GM in 0.9 % Sodium Chloride 50 ML IV (05:28)
[2021-07-20] MEDS: Omeprazole 20 MG CAPSULE.DR PO (05:28)
[2021-07-20 06:09] LABS: MANUAL DIFF FLAG NO
[2021-07-20 06:20] LABS: Basophils Absolute Auto 0.1 X10*3/uL (0.0-0.2); Basophils Percent Auto 0.6 % (0-2); Eosinophils Absolute Auto 0.2 X10*3/uL (0.0-0.4); Eosinophils Percent Auto 2.2 % (0-4); Hematocrit 43.5 % (42.0-52.0); Hemoglobin 14.3 g/dl (14.0-18.0); Imm Gran Pct Auto 1.1 % (0.0-0.4); Lymphocytes Absolute Auto 2.5 X10*3/uL (1.2-4.9); Lymphocytes Percent Auto 27.3 % (20-40); Mean Corpuscular HGB Conc 32.9 g/dl (31.0-36.0); Mean Corpuscular Hemoglobin 29.4 pg (27.0-33.0); Mean Corpuscular Volume 89.5 fL (80.0-98.0); Mean Platelet Volume 11.3 fL (9.4-12.4); Monocytes Percent Auto 10.7 % (2-11); Neutrophils Absolute Auto 5.2 x10*3/uL (2.0-8.3); Neutrophils Percent Auto 58.1 % (45-73); Platelet Count 179 X10*3/uL (160-400); Red Blood Count 4.86 X10*6/uL (4.60-5.80); Red Cell Distribution Width 15.3 % (11.0-16.0)
[2021-07-20 06:34] LABS: Alanine Aminotransferase 75 U/L (0-40); Albumin Level 3.2 g/dL (3.5-5.0); Alkaline Phosphatase 372 U/L (39-117); Anion Gap 12 (12-20); Aspartate Amino Transferase 44 U/L (5-37); Bilirubin Total 1.6 mg/dL (0.0-1.0); Blood Urea Nitrogen 17 mg/dL (9-16); Calcium 8.7 mg/dL (8.4-10.2); Carbon Dioxide 28 mmol/L (22-29); Chloride 100 mmol/L (96-108); Creatinine Clr Calc Pharmacy 75.9; Estimated Glomerular Filt Rate > 60; Glucose Fasting 251 mg/dL (60-99); Sodium 136 mmol/L (135-145); Total Protein 5.7 g/dL (6.5-8.0)
[2021-07-20 07:27] LABS: Glucose, Whole Blood 231 mg/dL (60-115)
[2021-07-20] MEDS: 0.9 % Sodium Chloride Flush 3 ML SYRINGE IVFLUSH ×2 (08:11→15:02)
[2021-07-20] MEDS: Insulin Lispro 100 UNIT/ML 3 ML VIAL SUBCUT ×5 (08:12→20:37)
[2021-07-20] MEDS: Cholecalciferol (Vitamin D3) 25 MCG TABLET PO (08:14)
[2021-07-20] MEDS: Memantine HCl 10 MG TABLET PO ×2 (08:14→20:37)
[2021-07-20] MEDS: Donepezil HCl 10 MG TABLET PO (08:14)
[2021-07-20] MEDS: Ascorbic Acid 250 MG TABLET PO (08:15)
[2021-07-20] MEDS: Cyanocobalamin (Vitamin B-12) 1,000 MCG TABLET 1000 MCG PO (08:15)
[2021-07-20] MEDS: Metoprolol Succinate ER 50 MG TAB.ER.24H PO (08:15)
[2021-07-20] MEDS: DULoxetine HCl 60 MG CAPSULE.DR PO ×2 (08:16→20:36)
[2021-07-20] MEDS: Losartan Potassium 50 MG TABLET PO (08:17)
[2021-07-20] MEDS: oxyCODONE HCl Immed Release 5 MG TABLET 10 MG PO ×2 (08:47→15:01)
--- NOTE | 2021-07-20 08:56 | CA_ITS ---
Transthoracic Echocardiogram Patient (Last, First, Middle): Vinod Rojas, Gender: Male Date of : 1950 Age: 71 Procedure Date: 07/20/2021 Procedure Type: Transthoracic Echocardiogram Location: [facility] [place] Height: 170.18 cm Weight: 105.69 kg BSA: 2.16 m2 Heart Rate: bpm BP: 129 / 91 mmHg Torpedoman'S Mate: Referring MD: Nelson Solis MD Symptoms: preop, atrial flutter, cabg Study Quality: Fair ECG Rhythm: Sinus Conclusions: - The left ventricular systolic function is mildly decreased. The visually estimated ejection fraction is between 40-45% (due to image quality, difficult to assess LVEF). - The basal inferior and basal inferoseptal segments are akinetic. - No obvious valvular pathology seen on this study. Findings Left Ventricle Normal left ventricular cavity size. There is moderately increased left ventricular wall thickness. The left ventricular systolic function is mildly decreased. The visually estimated ejection fraction is between 40-45%. The calculated ejection fraction is 44% by biplane method. E/E prime ratio is between 8 and 15 consistent with indeterminate filling pressures. Evidence suggests grade II (moderate) diastolic dysfunction. Wall Motion Rest Echo Findings The basal inferior and basal inferoseptal segments are akinetic. Right Ventricle Normal right ventricular cavity size and systolic function. Atria Both atria are normal in size. Aortic Valve The aortic valve was not well visualized. There is no aortic valve stenosis. The mean gradient is 3 mmHg. There is no aortic valve regurgitation. Mitral Valve The mitral valve appears normal. There is mild mitral valve regurgitation. There is no mitral valve stenosis. Pulmonic Valve The pulmonic valve was not well visualized. Tricuspid Valve There is trace tricuspid valve regurgitation. The pulmonary artery systolic pressure is normal. Great Vessels The asc aorta is normal in size. Venous The inferior vena cava is normal in size and collapses greater than 50% with inspiration. Pericardium/Pleural There is no evidence of pericardial effusion. Prior Study Comparison No prior study available for comparison. Recommendations, Care & Conclusions No obvious valvular pathology seen on this study. Measurements 2D Linear Measurements IVSd: 1.43 0.6-0.9/0.6-1.0 cm LVIDd: 4.66 3.9-5.3/4.2-5.9 cm LVIDd Index: 2.16 2.4-3.2/2.2-3.1 cm/m2 LVIDs: 3.19 2.0-3.6 cm LVPWd: 1.43 0.7-1.1 cm Ao Root: 3.60 2.1-3.5 cm LA Diam: 4.80 2.7-3.8/3.0-4.0 cm LAIDs Index: 2.22 1.5-2.3 cm/m2 LV Mass: 337.03 67-162/88-224 g LV Mass Index: 156.03 43-95/49-115 g/m2 LVOT Diam: 2.10 3.0+(-)1.3 cm 2D Systolic Function EF 4C: 49.60 >55% EF 2C: 40.10 >55% EF BiP: 44.30 >55% Mitral Valve MV Pk E: 0.90 MV PK A: 0.48 MV Decel Time: 175.00 E/A: 1.90 E'Lateral: 9.79 E'Medial: 5.44 E/E' Med: 16.50 E/E' Lat: 9.10 PHT: 51.00 MVA PHT: 4.31 Decel [place]: 5.12 Aortic Valve AoV Pk Dalton: 1.15 AoV Mn Dalton: 0.74 AoV VTI: 0.23 AoV Pk Grad: 5.00 Aov Mn Grad: 3.00 ANUJA Cont.VTI: 2.05 LVOT LVOT Pk Dalton: 0.64 LVOT Mn Dalton: 0.38 LVOT VTI: 0.14 LVOT Pk Grad: 2.00 LVOT Mn Grad: 1.00 LVOT Diam: 2.10 LVOT Area: 3.46 Diastolic Function MV Pk E: 0.90 MV Pk A: 0.48 E/A: 1.90 E'Medial: 5.44 E/E' Med: 16.50 E' Laterial: 9.79 E/E' Lat: 9.10 Right Ventricle TAPSE (mm): 22.00 TVS' Dalton: 10.00 Tricuspid Valve TR Pk Dalton: 1.78 TR Pk Grad: 13.00 Great Vessels Aorta Ao Root-2D: 3.60 2.0-3.7 cm Ao Asc: 3.50 2.1-3.4 cm Pulmonary Valve PV Pk Dalton: 0.96 Peak PV Grad: 4.00 Updated in Other Vendor System with Status of Final Nelson Solis MD electronically signed on 07/20/2021 12:19:41 PM with status of Final
--- NOTE | 2021-07-20 10:45 | P.CONCA_ITS ---
History of Present Illness History of Present Illness Date of Service: 07/20/21 Chief complaint: cholecystitis Narrative: This is a cardiology consultation regarding preoperative risk strati fication for gallbladder surgery. It seems that he was in the preop area for laparoscopic cholecystectomy yesterday and he was noticed to be in atrial flutter and hence the surgery itself was canceled. Patient himself does not have any palpitations or other cardiac symptoms at this time. He has a history of coronary artery bypass surgery in 2004. He was living [facility] area with his partner but has moved to be closer to his daughter in the recent months. He recently established care with Dr. Lino [facility]. Per available information, coronary artery bypass surgery in 2004. Possible PCI after that but details are not clear. However, nothing recently. It seems that he was maintained on long-term dual antiplatelet therapy including aspirin and Brilinta but Brilinta was recently stopped after seen by the new lastex operator. Patient does get chest pains that he describes like a pressure every other month or so that last for a short time. Sometimes he takes nitro but sometimes it goes away by itself. Not clear if it is angina or something nonspecific as he does not relate this specifically with any activity and can happen randomly. Otherwise some shortness of breath with aggressive activity. He does not feel any palpitations. He recalls having irregular heartbeat in the past but again not sure if he actually has had a diagnosis of atrial fibrillation or flutter in the past. He vaguely recalls the name Coumadin. Review of Systems Review of Systems: Yes all other systems are reviewed and are negative Cardiovascular: Cardiovascular: Reports as per HPI, Reports no additional cardiovascular complaints, Denies acrocyanosis, Denies cool extremities, Denies painful fingertips, Denies chest pain, Denies chest pain at rest, Denies diaphoresis, Denies syncope, Denies irregular heart rhythm, Denies claudication, Denies leg edema, Denies lightheadedness, Denies palpitations and Denies dyspnea Respiratory: Respiratory: Denies dyspnea Neurologic: Denies syncope Endocrine: Endocrine: Denies palpitations [facility] Past Medical History Medical History (Updated 07/20/21 @ 10:51 by Nelson Solis MD) Diabetes Sleep apnea Functional capacity: independent ambulation Family History Family History (Updated 07/20/21 @ 10:49 by Nelson Solis MD) Father CAD (coronary artery disease) Sister CAD (coronary artery disease) Family history: reviewed and not pertinent Surgical History Surgical History (Updated 07/19/21 @ 13:10 by Annalisa Avalos RN) History of quadruple bypass History of [place]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 Social History Social History Household Members: None Housing: Apartment Do you presently have visiting nurse or other home services: No Alcohol intake: former Patient Tobacco Use Status: Current everyday Tobacco user Tobacco use type: Smokeless Tobacco Substance Use Type: Other service: No Current occupational status: retired [employer] Allergies Allergy/AdvReac Type Severity Reaction Status Date / Time No Known Allergies Allergy Verified 06/20/21 22:50 Active Medications: Current Medications Ascorbic Acid (Ascorbic Acid 250 Mg Tablet) 250 mg PO DAILY [facility] Last Admin: 07/20/21 08:15 Dose: 250 mg Documented by: Calcium Carbonate (Calcium Carbonate 500 Mg Tablet) 1,000 mg PO BID [facility] Last Admin: 07/20/21 08:17 Dose: 1,000 mg Documented by: Cyanocobalamin (Cyanocobalamin (Vitamin B-12) 1,000 Mcg Tablet) 1,000 mcg PO DAILY [facility] Last Admin: 07/20/21 08:15 Dose: 1,000 mcg Documented by: Dextrose (Dextrose 50 % 25 Gm/50 Ml Vial) 25 gm IVPUSH Q15M PRN; Protocol PRN Reason: per Hypoglycemia Standing Ord. Donepezil HCl (Donepezil Hcl 10 Mg Tablet) 10 mg PO DAILY [facility] Last Admin: 07/20/21 08:14 Dose: 10 mg Documented by: Duloxetine HCl (Duloxetine Hcl 60 Mg Capsule.Dr) 60 mg PO BID [facility] Last Admin: 07/20/21 08:16 Dose: 60 mg Documented by: Glucose (Glucose Gel 15 Gm Gel..Gram.) 15 gm PO Q15M PRN; Protocol PRN Reason: per Hypoglycemia Standing Ord. Hydromorphone HCl (Hydromorphone Hcl 0.5 Mg/0.5 Ml Syringe) 0.5 mg IVPUSH Q4H PRN; Protocol PRN Reason: Pain, Moderate (Pain Scale 4-6 Last Admin: 07/20/21 01:13 Dose: 0.5 mg Documented by: Ceftriaxone Sodium 1 gm/ (Sodium Chloride) 50 mls @ 100 mls/hr IV Q24H [facility] Last Infusion: 07/20/21 07:06 Dose: Infused Documented by: Insulin Glargine (Insulin Glargine,Hum.Rec.Anlog 100 Unit/Ml 10 Ml Vial) 30 unit SUBCUT BEDTIME [facility] Last Admin: 07/19/21 21:17 Dose: 30 unit Documented by: Insulin Human Lispro (Insulin Lispro 100 Unit/Ml 3 Ml Vial) 0.1 - 10 unit SUBCUT QIDACHS [facility]; Protocol Last Admin: 07/20/21 08:12 Dose: 4 unit Documented by: Losartan Potassium (Losartan Potassium 50 Mg Tablet) 50 mg PO DAILY [facility]; Protocol Last Admin: 07/20/21 08:17 Dose: 50 mg Documented by: Melatonin (Melatonin 3 Mg Tablet) 6 mg PO BEDTIME PRN PRN Reason: Insomnia Memantine (Memantine Hcl 10 Mg Tablet) 10 mg PO BID [facility] Last Admin: 07/20/21 08:14 Dose: 10 mg Documented by: Metoprolol Succinate (Metoprolol Succinate Er 50 Mg Tab.Er.24h) 50 mg PO DAILY [facility]; Protocol Last Admin: 07/20/21 08:15 Dose: 50 mg Documented by: Metronidazole (Metronidazole 500 Mg Tablet) 500 mg PO Q8H [facility] Last Admin: 07/20/21 08:16 Dose: 500 mg Documented by: Omeprazole (Omeprazole 20 Mg Capsule.Dr) 20 mg PO DAILY@0630 [facility] Last Admin: 07/20/21 05:28 Dose: 20 mg Documented by: Oxycodone HCl (Oxycodone Hcl Immed Release 5 Mg Tablet) 10 mg PO Q6H PRN PRN Reason: Pain, Moderate (Pain Scale 4-6 Last Admin: 07/20/21 08:47 Dose: 10 mg Documented by: Pharmacy Consult (Consult Rx Perform Med Rec) 1 each MISCELLANE ONCE PRN PRN Reason: Consult order Sodium Chloride (0.9 % Sodium Chloride Flush 3 Ml Syringe) 3 ml IVFLUSH QSHIFT [facility] Last Admin: 07/20/21 08:11 Dose: 3 ml Documented by: Vitamin D (Cholecalciferol (Vitamin D3) 25 Mcg Tablet) 25 mcg PO DAILY [facility] Last Admin: 07/20/21 08:14 Dose: 25 mcg Documented by: Home Medications Medication Instructions Recorded Confirmed Last Taken Type donepezil 10 mg tablet 1 tab PO DAILY 07/12/21 07/13/21 07/12/21 History empagliflozin 25 mg tablet 1 tab PO DAILY 07/12/21 07/13/21 07/12/21 History (Jardiance) ezetimibe 10 mg-simvastatin 80 mg 1 tab PO BEDTIME 07/12/21 07/13/21 07/12/21 History tablet glimepiride 4 mg tablet 1 tab PO BID 07/12/21 07/13/21 07/12/21 History insulin aspart U-100 100 unit/mL See Protocol 07/12/21 07/13/21 07/12/21 History (3 mL) subcutaneous pen (Novolog Flexpen U-100 Insulin aspart) insulin glargine U-300 conc 300 49 unit SUBCUT DAILY 07/12/21 07/13/21 07/12/21 History unit/mL (1.5 mL) subcutaneous pen (Toujeo SoloStar U-300 Insulin) pantoprazole 40 mg tablet,delayed 1 tab PO DAILY 07/12/21 07/13/21 07/12/21 History release ascorbic acid (vitamin C) 500 mg 250 mg PO DAILY 07/13/21 07/13/21 07/12/21 History tablet (Vitamin C) calcium carbonate 500 mg calcium 1,000 mg PO BID 07/13/21 07/13/21 07/12/21 History (1,250 mg) tablet (Calcium 500) cholecalciferol (vitamin D3) 25 25 mcg PO DAILY 07/13/21 07/13/21 07/12/21 His tory mcg (1,000 unit) tablet (Vitamin D3) cyanocobalamin (vitamin B-12) 1,000 mcg PO DAILY 07/13/21 07/13/21 07/12/21 History 1,000 mcg tablet duloxetine 60 mg capsule,delayed 60 mg PO BID 07/13/21 07/13/21 07/12/21 History release losartan 50 mg tablet 1 tab PO DAILY 07/13/21 07/13/21 07/12/21 History memantine 10 mg tablet 10 mg PO BID 07/13/21 07/13/21 Unknown History metoprolol succinate 50 mg 1 tab PO DAILY 1107/13/21 07/12/21 History tablet,extended release 24 hr Physical Exam Vital Signs: Vital Signs: Last Vital Signs Temp 98.1 F 07/20/21 07:14 Pulse 83 07/20/21 08:17 Resp 18 07/20/21 07:14 BP 129/91 H 07/20/21 08:17 Pulse Ox 95 07/20/21 07:14 Body Mass Index 36.6 Const: General: cooperative and no acute distress HENMT: Other: Unremarkable Neck: Neck: Yes normal visual inspection Chest: Chest palpation & inspection: normal inspection of the chest Resp: Auscultation: clear to auscultation bilaterally, no crackles and no wheezes Cardio: Jugular venous distension: no JVD Palpation: normal PMI Heart sounds: S1 normal heart sound present, S2 normal heart sound present, no gallops, no murmurs and no rubs GI: Palpation (GI): Soft to palpation Back/Spine/Pelvis: Other: unremarkable Skin: General skin exam: no rashes or lesions noted Neuro: Cranial nerves: Yes Other cranial nerve findings present Extrem: General: Yes no clubbing, cyanosis or edema Psych: Mental Status: other Objective Labs and Meds Result diagrams: 07/20/21 05:46 07/20/21 05:46 Lab results: Laboratory Results - last 24 hr 07/19/21 07/19/21 07/19/21 11:14 12:33 16:31 WBC RBC Hgb Hct MCV MCH MCHC RDW Plt Count MPV Immature Gran % (Auto) Neut % (Auto) Lymph % (Auto) [place] % (Auto) Eos % (Auto) Baso % (Auto) Lymph # (Auto) [place] # (Auto) Eos # (Auto) Baso # (Auto) Abs Immat Gran (auto) Absolute Neuts (auto) Absolute Nucleated RBC Nucleated RBC % (auto) Sodium Potassium Chloride Carbon Dioxide Anion Gap BUN Creatinine Estim Creat Clear Calc Estimated GFR POC Glucose 164 H 146 H Fasting Glucose Calcium Total Bilirubin AST ALT Alkaline Phosphatase Total Protein Albumin Blood Type A Negative Antibody Screen NEGATIVE 07/19/21 07/20/21 07/20/21 20:21 05:46 05:46 WBC 9.0 RBC 4.86 Hgb 14.3 Hct 43.5 MCV 89.5 MCH 29.4 MCHC 32.9 RDW 15.3 Plt Count 179 MPV 11.3 Immature Gran % (Auto) 1.1 H Neut % (Auto) 58.1 Lymph % (Auto) 27.3 [place] % (Auto) 10.7 Eos % (Auto) 2.2 Baso % (Auto) 0.6 Lymph # (Auto) 2.5 [place] # (Auto) 1.0 Eos # (Auto) 0.2 Baso # (Auto) 0.1 Abs Immat Gran (auto) 0.10 H Absolute Neuts (auto) 5.2 Absolute Nucleated RBC 0.000 Nucleated RBC % (auto) 0.0 Sodium 136 Potassium 4.0 Chloride 100 Carbon Dioxide 28 Anion Gap 12 BUN 17 H Creatinine 1.02 Estim Creat Clear Calc 75.9 Estimated GFR > 60 POC Glucose 306 H Fasting Glucose 251 H D Calcium 8.7 Total Bilirubin 1.6 H AST 44 H ALT 75 H Alkaline Phosphatase 372 H Total Protein 5.7 L Albumin 3.2 L Blood Type Antibody Screen 07/20/21 07:16 WBC RBC Hgb Hct MCV MCH MCHC RDW Plt Count MPV Immature Gran % (Auto) Neut % (Auto) Lymph % (Auto) [place] % (Auto) Eos % (Auto) Baso % (Auto) Lymph # (Auto) [place] # (Auto) Eos # (Auto) Baso # (Auto) Abs Immat Gran (auto) Absolute Neuts (auto) Absolute Nucleated RBC Nucleated RBC % (auto) Sodium Potassium Chloride Carbon Dioxide Anion Gap BUN Creatinine Estim Creat Clear Calc Estimated GFR POC Glucose 231 H Fasting Glucose Calcium Total Bilirubin AST ALT Alkaline Phosphatase Total Protein Albumin Blood Type Antibody Screen ECG Interpretation: EKG from shows atrial flutter with controlled rate 82/Min. Cannot exclude old inferior infarct. There is RV conduction delay. In the prio r EKG from , underlying rhythm is sinus with first-degree heart block but difficult to calculate the actual NC interval- possibly around 262 milliseconds. On review of telemetry, currently he is in sinus rhythm but as today he was in atrial flutter and also overnight. On different days since admission he has been in either flutter fibrillation with controlled rate. Assessment and Plan (1) Preoperative cardiovascular examination: Status: Acute (2) Paroxysmal atrial flutter: Status: Acute (3) Paroxysmal atrial fibrillation: Status: Acute (4) Atherosclerotic cardiovascular disease: Status: Acute High sensitivity troponin from earlier in the admission was 9.5. As he does not feel the palpitations, he could have been having atrial arrhythmias even prior to hospitalization. We will get an echocardiogram for cardiac function assessment. We can make an addendum to this note after that is completed and reviewed. Otherwise with regard to the atrial flutter/fibrillation itself, he will need anticoagulation once stable post surgery. Cardiac risks including perioperative myocardial infarction discussed with patient as well as daughter at the bedside. Procedures Date of Service Date of Service: 07/20/21
--- NOTE | 2021-07-20 10:50 | P.EN_ITS ---
Event Note Date of Service: 07/20/21 Event Note: New onset a flutter yesterday. Branden hays therefore cancelled. He f eels well this morning and denies pain. Clinically appearing well, abd exam benign. Awaiting cardiology evaluation. Branden hays, possible open still on hold. Discussed with patient who understands.
[2021-07-20 11:23] LABS: Glucose, Whole Blood 413 mg/dL (60-115)
--- NOTE | 2021-07-20 11:31 | PC.NURSE ---
Patient converted from a-flitter to sinus rhythm around 0900, nuclear technologist aware
--- NOTE | 2021-07-20 11:32 | P.PNIM_ITS ---
Subjective Subjective Date of Service: 07/20/21 Review of Systems Follow-up cholecystitis Disappointed that he was unable to have the procedure yesterday due to a flutter Denies chest pain, palpitations, abdominal pain, nausea, vomiting, diarrhea All other systems reviewed and are negative Physical Exam Vital Signs: Vital Signs: Last Vital Signs Temp 98.1 F 07/20/21 07:14 Pulse 83 07/20/21 08:17 Resp 18 07/20/21 07:14 BP 129/91 H 07/20/21 08:17 Pulse Ox 95 07/20/21 07:14 Body Mass Index 36.6 Appearing in no acute distress lung sounds are clear to auscultation heart regular rate rhythm, clear S1, S2 positive bowel sounds, abdomen is soft, nontender neuro patient is alert x3, no focal deficits Objective Data Active Medications Ascorbic Acid (Ascorbic Acid 250 Mg Tablet) 250 mg PO DAILY [facility] Last Admin: 07/20/21 08:15 Dose: 250 mg Documented by: JASMIN Calcium Carbonate (Calcium Carbonate 500 Mg Tablet) 1,000 mg PO BID [facility] Last Admin: 07/20/21 08:17 Dose: 1,000 mg Documented by: JASMIN Cyanocobalamin (Cyanocobalamin (Vitamin B-12) 1,000 Mcg Tablet) 1,000 mcg PO DAILY [facility] Last Admin: 07/20/21 08:15 Dose: 1,000 mcg Documented by: JASMIN Dextrose (Dextrose 50 % 25 Gm/50 Ml Vial) 25 gm IVPUSH Q15M PRN; Protocol PRN Reason: per Hypoglycemia Standing Ord. Donepezil HCl (Donepezil Hcl 10 Mg Tablet) 10 mg PO DAILY [facility] Last Admin: 07/20/21 08:14 Dose: 10 mg Documented by: JASMIN Duloxetine HCl (Duloxetine Hcl 60 Mg Capsule.Dr) 60 mg PO BID [facility] Last Admin: 07/20/21 08:16 Dose: 60 mg Documented by: JASMIN Glucose (Glucose Gel 15 Gm Gel..Gram.) 15 gm PO Q15M PRN; Protocol PRN Reason: per Hypoglycemia Standing Ord. Hydromorphone HCl (Hydromorphone Hcl 0.5 Mg/0.5 Ml Syringe) 0.5 mg IVPUSH Q4H PRN; Protocol PRN Reason: Pain, Moderate (Pain Scale 4-6 Last Admin: 07/20/21 01:13 Dose: 0.5 mg Documented by: DIANA Ceftriaxone Sodium 1 gm/ (Sodium Chloride) 50 mls @ 100 mls/hr IV Q24H [facility] Last Infusion: 07/20/21 07:06 Dose: 0 mls/hr Documented by: DIANA Insulin Glargine (Insulin Glargine,Hum.Rec.Anlog 100 Unit/Ml 10 Ml Vial) 30 unit SUBCUT BEDTIME [facility] Last Admin: 07/19/21 21:17 Dose: 30 unit Documented by: DIANA Insulin Human Lispro (Insulin Lispro 100 Unit/Ml 3 Ml Vial) 0.1 - 10 unit SUBCUT QIDACHS [facility]; Protocol Last Admin: 07/20/21 08:12 Dose: 4 unit Documented by: JASMIN Losartan Potassium (Losartan Potassium 50 Mg Tablet) 50 mg PO DAILY [facility]; Protocol Last Admin: 07/20/21 08:17 Dose: 50 mg Documented by: JASMIN Melatonin (Melatonin 3 Mg Tablet) 6 mg PO BEDTIME PRN PRN Reason: Insomnia Memantine (Memantine Hcl 10 Mg Tablet) 10 mg PO BID [facility] Last Admin: 07/20/21 08:14 Dose: 10 mg Documented by: JASMIN Metoprolol Succinate (Metoprolol Succinate Er 50 Mg Tab.Er.24h) 50 mg PO DAILY [facility]; Protocol Last Admin: 07/20/21 08:15 Dose: 50 mg Documented by: JASMIN Metronidazole (Metronidazole 500 Mg Tablet) 500 mg PO Q8H [facility] Last Admin: 07/20/21 08:16 Dose: 500 mg Documented by: JASMIN Omeprazole (Omeprazole 20 Mg Capsule.) 20 mg PO DAILY@0630 [facility] Last Admin: 07/20/21 05:28 Dose: 20 mg Documented by: DIANA Oxycodone HCl (Oxycodone Hcl Immed Release 5 Mg Tablet) 10 mg PO Q6H PRN PRN Reason: Pain, Moderate (Pain Scale 4-6 Last Admin: 07/20/21 08:47 Dose: 10 mg Documented by: HUSSEIN Pharmacy Consult (Consult Rx Perform Med Rec) 1 each MISCELLANE ONCE PRN PRN Reason: Consult order Sodium Chloride (0.9 % Sodium Chloride Flush 3 Ml Syringe) 3 ml IVFLUSH QSHIFT [facility] Last Admin: 07/20/21 08:11 Dose: 3 ml Documented by: JASMIN Vitamin D (Cholecalciferol (Vitamin D3) 25 Mcg Tablet) 25 mcg PO DAILY [facility] Last Admin: 07/20/21 08:14 Dose: 25 mcg Documented by: JASMIN Labs CBC & Chem 7: 07/20/21 05:46 07/20/21 05:46 Labs: Laboratory Results - last 24 hr 07/19/21 07/19/21 07/19/21 12:33 16:31 20:21 MCV MCH MCHC RDW Plt Count MPV Immature Gran % (Auto) Neut % (Auto) Lymph % (Auto) [place] % (Auto) Eos % (Auto) Baso % (Auto) Lymph # (Auto) [place] # (Auto) Eos # (Auto) Baso # (Auto) Abs Immat Gran (auto) Absolute Neuts (auto) Absolute Nucleated RBC Nucleated RBC % (auto) Anion Gap Estim Creat Clear Calc Estimated GFR POC Glucose 146 H 306 H Fasting Glucose Calcium Total Bilirubin AST ALT Alkaline Phosphatase Total Protein Albumin Blood Type A Negative Antibody Screen NEGATIVE 07/20/21 07/20/21 07/20/21 05:46 05:46 07:16 MCV 89.5 MCH 29.4 MCHC 32.9 RDW 15.3 Plt Count 179 MPV 11.3 Immature Gran % (Auto) 1.1 H Neut % (Auto) 58.1 Lymph % (Auto) 27.3 [place] % (Auto) 10.7 Eos % (Auto) 2.2 Baso % (Auto) 0.6 Lymph # (Auto) 2.5 [place] # (Auto) 1.0 Eos # (Auto) 0.2 Baso # (Auto) 0.1 Abs Immat Gran (auto) 0.10 H Absolute Neuts (auto) 5.2 Absolute Nucleated RBC 0.000 Nucleated RBC % (auto) 0.0 Anion Gap 12 Estim Creat Clear Calc 75.9 Estimated GFR > 60 POC Glucose 231 H Fasting Glucose 251 H D Calcium 8.7 Total Bilirubin 1.6 H AST 44 H ALT 75 H Alkaline Phosphatase 372 H Total Protein 5.7 L Albumin 3.2 L Blood Type Antibody Screen 07/20/21 11:10 MCV MCH MCHC RDW Plt Count MPV Immature Gran % (Auto) Neut % (Auto) Lymph % (Auto) [place] % (Auto) Eos % (Auto) Baso % (Auto) Lymph # (Auto) [place] # (Auto) Eos # (Auto) Baso # (Auto) Abs Immat Gran (auto) Absolute Neuts (auto) Absolute Nucleated RBC Nucleated RBC % (auto) Anion Gap Estim Creat Clear Calc Estimated GFR POC Glucose 413 H* Fasting Glucose Calcium Total Bilirubin AST ALT Alkaline Phosphatase Total Protein Albumin Blood Type Antibody Screen Assessment and Plan (1) Paroxysmal atrial flutter: Status: Acute (2) Acute calculous cholecystitis: Status: Acute (3) H/O: HTN (hypertension): Status: Acute (4) Diabetes: Status: Acute (5) Atherosclerotic cardiovascular disease: Status: Acute Assessment and Plan: 71-year-old male with a past medical history of hypertension, hyperlipidemia, diabetes, coronary artery disease status post CABG, obesity, KATINA on CPAP, history of Alzheimer's dementia presented to the hospital with a chief complaint of right upper quadrant abdominal pain/noted to have acute cholecystitis/gallstones/transaminitis.? Pain? improved with NPO status pain Atrial flutter Was supposed to have cholecystectomy yesterday however he was found to be in atrial flutter question of whether this was new however on the during this admission he was in aflutter. According to cardiology notes the patient may vaguely remember having an arrhythmia and remembering the medication Coumadin Not currently on any anticoagulation and will need to be postoperatively CHADS2 Vasc score 3, Has Bled score 2 Echo pending Acute cholecystitis/gallstones Plan will be to resume surgery after echocardiogram if no significant abnor malities Bacteremia. Clostridium perfringens Escherichia coli Will continue IV ceftriaxone/metronidazole As per?ID, continue antibiotics pending cholecystectomy ? ? Cholestatic LFTs Continue to trend pending Hypertension Continue losartan/metoprolol as per outpatient dosing CAD Aspirin on hold pending procedure.? Continue other therapies Type 2 diabetes requiring insulin Continue sliding scale;? Lantus added back follow response GERD Continue PPI DVT prophylaxis: SCD boots Code status: Full code Attending Dr. Up Quality Stroke Does the patient have a stroke diagnosis?: No VTE Prior VTE?: No VTE Risk Level:: Medical - moderate - high VTE Device Contraindication: N/A - Device Ordered VTE Drug Contraindication: Treatment Not Indicated
--- NOTE | 2021-07-20 13:29 | P.PNGS_ITS ---
Subjective Subjective Date of Service: 07/20/21 Interval history: Has occasional abdominal pain Otherwise says he feels well and comfortable No nausea vomiting Physical Exam Vital Signs: Vital Signs: Last Vital Signs Temp 98.0 F 07/20/21 11:47 Pulse 70 07/20/21 11:47 Resp 22 H 07/20/21 11:49 BP 150/86 H 07/20/21 11:47 Pulse Ox 94 07/20/21 11:47 Body Mass Index 36.6 Const: General: no acute distress Resp: Other: Using CPAP Effort & Inspection: normal respiratory effort Cardio: Rate: regular rate GI: Other: Some tenderness on the right side Palpation (GI): Soft to palpation, not firm, no guarding and not rigid Objective Data Active Medications Ascorbic Acid (Ascorbic Acid 250 Mg Tablet) 250 mg PO DAILY [facility] Last Admin: 07/20/21 08:15 Dose: 250 mg Documented by: JASMIN Calcium Carbonate (Calcium Carbonate 500 Mg Tablet) 1,000 mg PO BID [facility] Last Admin: 07/20/21 08:17 Dose: 1,000 mg Documented by: JASMIN Cyanocobalamin (Cyanocobalamin (Vitamin B-12) 1,000 Mcg Tablet) 1,000 mcg PO DAILY [facility] Last Admin: 07/20/21 08:15 Dose: 1,000 mcg Documented by: JASMIN Dextrose (Dextrose 50 % 25 Gm/50 Ml Vial) 25 gm IVPUSH Q15M PRN; Protocol PRN Reason: per Hypoglycemia Standing Ord. Donepezil HCl (Donepezil Hcl 10 Mg Tablet) 10 mg PO DAILY [facility] Last Admin: 07/20/21 08:14 Dose: 10 mg Documented by: JASMIN Duloxetine HCl (Duloxetine Hcl 60 Mg Capsule.Dr) 60 mg PO BID [facility] Last Admin: 07/20/21 08:16 Dose: 60 mg Documented by: JASMIN Glucose (Glucose Gel 15 Gm Gel..Gram.) 15 gm PO Q15M PRN; Protocol PRN Reason: per Hypoglycemia Standing Ord. Hydromorphone HCl (Hydromorphone Hcl 0.5 Mg/0.5 Ml Syringe) 0.5 mg IVPUSH Q4H PRN; Protocol PRN Reason: Pain, Moderate (Pain Scale 4-6 Last Admin: 07/20/21 11:49 Dose: 0.5 mg Documented by: JASMIN Ceftriaxone Sodium 1 gm/ (Sodium Chloride) 50 mls @ 100 mls/hr IV Q24H [facility] Last Infusion: 07/20/21 07:06 Dose: 0 mls/hr Documented by: DIANA Insulin Glargine (Insulin Glargine,Hum.Rec.Anlog 100 Unit/Ml 10 Ml Vial) 30 unit SUBCUT BEDTIME [facility] Last Admin: 07/19/21 21:17 Dose: 30 unit Documented by: DIANA Insulin Human Lispro (Insulin Lispro 100 Unit/Ml 3 Ml Vial) 0.1 - 10 unit SUBCUT QIDACHS [facility]; Protocol Last Admin: 07/20/21 11:48 Dose: 10 unit Documented by: JASMIN Losartan Potassium (Losartan Potassium 50 Mg Tablet) 50 mg PO DAILY [facility]; Protocol Last Admin: 07/20/21 08:17 Dose: 50 mg Documented by: JASMIN Melatonin (Melatonin 3 Mg Tablet) 6 mg PO BEDTIME PRN PRN Reason: Insomnia Memantine (Memantine Hcl 10 Mg Tablet) 10 mg PO BID [facility] Last Admin: 07/20/21 08:14 Dose: 10 mg Documented by: JASMIN Metoprolol Succinate (Metoprolol Succinate Er 50 Mg Tab.Er.24h) 50 mg PO DAILY [facility]; Protocol Last Admin: 07/20/21 08:15 Dose: 50 mg Documented by: JASMIN Metronidazole (Metronidazole 500 Mg Tablet) 500 mg PO Q8H [facility] Last Admin: 07/20/21 08:16 Dose: 500 mg Documented by: JASMIN Omeprazole (Omeprazole 20 Mg Janice.) 20 mg PO DAILY@0630 [facility] Last Admin: 07/20/21 05:28 Dose: 20 mg Documented by: DIANA Oxycodone HCl (Oxycodone Hcl Immed Release 5 Mg Tablet) 10 mg PO Q6H PRN PRN Reason: Pain, Moderate (Pain Scale 4-6 Last Admin: 07/20/21 08:47 Dose: 10 mg Documented by: HUSSEIN Pharmacy Consult (Consult Rx Perform Med Rec) 1 each MISCELLANE ONCE PRN PRN Reason: Consult order Sodium Chloride (0.9 % Sodium Chloride Flush 3 Ml Syringe) 3 ml IVFLUSH QSHIFT [facility] Last Admin: 07/20/21 08:11 Dose: 3 ml Documented by: JASMIN Vitamin D (Cholecalciferol (Vitamin D3) 25 Mcg Tablet) 25 mcg PO DAILY [facility] Last Admin: 07/20/21 08:14 Dose: 25 mcg Documented by: JASMIN Labs CBC & Chem 7: 07/20/21 05:46 07/20/21 05:46 Labs: Laboratory Results - last 24 hr 07/19/21 07/19/21 07/20/21 16:31 20:21 05:46 MCV 89.5 MCH 29.4 MCHC 32.9 RDW 15.3 Plt Count 179 MPV 11.3 Immature Gran % (Auto) 1.1 H Neut % (Auto) 58.1 Lymph % (Auto) 27.3 Lane % (Auto) 10.7 Eos % (Auto) 2.2 Baso % (Auto) 0.6 Lymph # (Auto) 2.5 Lane # (Auto) 1.0 Eos # (Auto) 0.2 Baso # (Auto) 0.1 Abs Immat Gran (auto) 0.10 H Absolute Neuts (auto) 5.2 Absolute Nucleated RBC 0.000 Nucleated RBC % (auto) 0.0 Anion Gap Estim Creat Clear Calc Estimated GFR POC Glucose 146 H 306 H Fasting Glucose Calcium Total Bilirubin AST ALT Alkaline Phosphatase Total Protein Albumin 07/20/21 07/20/21 07/20/21 05:46 07:16 11:10 MCV MCH MCHC RDW Plt Count MPV Immature Gran % (Auto) Neut % (Auto) Lymph % (Auto) Lane % (Auto) Eos % (Auto) Baso % (Auto) Lymph # (Auto) Lane # (Auto) Eos # (Auto) Baso # (Auto) Abs Immat Gran (auto) Absolute Neuts (auto) Absolute Nucleated RBC Nucleated RBC % (auto) Anion Gap 12 Estim Creat Clear Calc 75.9 Estimated GFR > 60 POC Glucose 231 H 413 H* Fasting Glucose 251 H D Calcium 8.7 Total Bilirubin 1.6 H AST 44 H ALT 75 H Alkaline Phosphatase 372 H Total Protein 5.7 L Albumin 3.2 L Procedures Date of Service Date of Service: 07/20/21 Progress Note: A&P Assessment and plan (1) Acute calculous cholecystitis: Status: Acute Assessment and Plan: Lap choly canceled yesterday because of new onset atrial flutter Looks comfortable WBC normal Abdomen soft Cardiac workup Follow LFTs Will continue to follow patient Fall Risk Details Current Medications: Current Medications Ascorbic Acid (Ascorbic Acid 250 Mg Tablet) 250 mg PO DAILY [facility] Last Admin: 07/20/21 08:15 Dose: 250 mg Documented by: Calcium Carbonate (Calcium Carbonate 500 Mg Tablet) 1,000 mg PO BID [facility] Last Admin: 07/20/21 08:17 Dose: 1,000 mg Documented by: Cyanocobalamin (Cyanocobalamin (Vitamin B-12) 1,000 Mcg Tablet) 1,000 mcg PO DAILY [facility] Last Admin: 07/20/21 08:15 Dose: 1,000 mcg Documented by: Dextrose (Dextrose 50 % 25 Gm/50 Ml Vial) 25 gm IVPUSH Q15M PRN; Protocol PRN Reason: per Hypoglycemia Standing Ord. Donepezil HCl (Donepezil Hcl 10 Mg Tablet) 10 mg PO DAILY [facility] Last Admin: 07/20/21 08:14 Dose: 10 mg Documented by: Duloxetine HCl (Duloxetine Hcl 60 Mg Capsule.Dr) 60 mg PO BID [facility] Last Admin: 07/20/21 08:16 Dose: 60 mg Documented by: Glucose (Glucose Gel 15 Gm Gel..Gram.) 15 gm PO Q15M PRN; Protocol PRN Reason: per Hypoglycemia Standing Ord. Hydromorphone HCl (Hydromorphone Hcl 0.5 Mg/0.5 Ml Syringe) 0.5 mg IVPUSH Q4H PRN; Protocol PRN Reason: Pain, Moderate (Pain Scale 4-6 Last Admin: 07/20/21 11:49 Dose: 0.5 mg Documented by: Ceftriaxone Sodium 1 gm/ (Sodium Chloride) 50 mls @ 100 mls/hr IV Q24H [facility] Last Infusion: 07/20/21 07:06 Dose: Infused Documented by: Insulin Glargine (Insulin Glargine,Hum.Rec.Anlog 100 Unit/Ml 10 Ml Vial) 30 unit SUBCUT BEDTIME [facility] Last Admin: 07/19/21 21:17 Dose: 30 unit Documented by: Insulin Human Lispro (Insulin Lispro 100 Unit/Ml 3 Ml Vial) 0.1 - 10 unit S UBCUT QIDACHS [facility]; Protocol Last Admin: 07/20/21 11:48 Dose: 10 unit Documented by: Losartan Potassium (Losartan Potassium 50 Mg Tablet) 50 mg PO DAILY [facility]; Protocol Last Admin: 07/20/21 08:17 Dose: 50 mg Documented by: Melatonin (Melatonin 3 Mg Tablet) 6 mg PO BEDTIME PRN PRN Reason: Insomnia Memantine (Memantine Hcl 10 Mg Tablet) 10 mg PO BID [facility] Last Admin: 07/20/21 08:14 Dose: 10 mg Documented by: Metoprolol Succinate (Metoprolol Succinate Er 50 Mg Tab.Er.24h) 50 mg PO DAILY [facility]; Protocol Last Admin: 07/20/21 08:15 Dose: 50 mg Documented by: Metronidazole (Metronidazole 500 Mg Tablet) 500 mg PO Q8H [facility] Last Admin: 07/20/21 08:16 Dose: 500 mg Documented by: Omeprazole (Omeprazole 20 Mg Capsule.Dr) 20 mg PO DAILY@0630 [facility] Last Admin: 07/20/21 05:28 Dose: 20 mg Documented by: Oxycodone HCl (Oxycodone Hcl Immed Release 5 Mg Tablet) 10 mg PO Q6H PRN PRN Reason: Pain, Moderate (Pain Scale 4-6 Last Admin: 07/20/21 08:47 Dose: 10 mg Documented by: Pharmacy Consult (Consult Rx Perform Med Rec) 1 each MISCELLANE ONCE PRN PRN Reason: Consult order Sodium Chloride (0.9 % Sodium Chloride Flush 3 Ml Syringe) 3 ml IVFLUSH QSHIFT [facility] Last Admin: 07/20/21 08:11 Dose: 3 ml Documented by: Vitamin D (Cholecalciferol (Vitamin D3) 25 Mcg Tablet) 25 mcg PO DAILY [facility] Last Admin: 07/20/21 08:14 Dose: 25 mcg Documented by: Time Spent With Patient Time: Total time spent is greater than 50% in coordination of care (as documented) at patient's floor/unit and/or counseling patient: Time with patient: 15 - 24 minutes Quality Stroke Does the patient have a stroke diagnosis?: No VTE Prior VTE?: No VTE Risk Level:: Medical - moderate - high VTE Device Contraindication: N/A - Device Ordered VTE Drug Contraindication: Treatment Not Indicated
[2021-07-20 16:24] LABS: Glucose, Whole Blood 348 mg/dL (60-115)
[2021-07-20 19:50] LABS: Glucose, Whole Blood 275 mg/dL (60-115)
[2021-07-20] MEDS: Insulin Glargine,Hum.rec.anlog 100 UNIT/ML 10 ML VIAL 30 UNIT SUBCUT (20:37)
[2021-07-21] VITALS (9 sets, daily range): BP systolic 134–188; BP diastolic 75–91; PULSE 55–89; RESP 18–20; TEMP 36.2–37.1; O2SAT 90–98
[2021-07-21] MEDS: 0.9 % Sodium Chloride Flush 3 ML SYRINGE IVFLUSH ×4 (01:06→20:44)
[2021-07-21] MEDS: metroNIDAZOLE 500 MG TABLET PO ×4 (01:06→23:56)
[2021-07-21 04:41] LABS: MANUAL DIFF FLAG NO
[2021-07-21 04:50] LABS: Basophils Absolute Auto 0.1 X10*3/uL (0.0-0.2); Basophils Percent Auto 0.7 % (0-2); Eosinophils Absolute Auto 0.2 X10*3/uL (0.0-0.4); Eosinophils Percent Auto 2.3 % (0-4); Hematocrit 42.1 % (42.0-52.0); Hemoglobin 13.9 g/dl (14.0-18.0); Imm Gran Abs Auto 0.12 X10*3/uL (0.00-0.03); Imm Gran Pct Auto 1.2 % (0.0-0.4); Lymphocytes Absolute Auto 2.5 X10*3/uL (1.2-4.9); Lymphocytes Percent Auto 24.6 % (20-40); Mean Corpuscular Hemoglobin 29.9 pg (27.0-33.0); Mean Corpuscular Volume 90.5 fL (80.0-98.0); Mean Platelet Volume 11.1 fL (9.4-12.4); Monocytes Absolute Auto 0.9 X10*3/uL (0.1-1.2); Monocytes Percent Auto 9.1 % (2-11); Neutrophils Absolute Auto 6.4 x10*3/uL (2.0-8.3); Neutrophils Percent Auto 62.1 % (45-73); Platelet Count 195 X10*3/uL (160-400); Red Blood Count 4.65 X10*6/uL (4.60-5.80); Red Cell Distribution Width 15.3 % (11.0-16.0); White Blood Count 10.3 X10*3/uL (4.8-10.8)
[2021-07-21 04:59] LABS: Anion Gap 13 (12-20); Blood Urea Nitrogen 16 mg/dL (9-16); Calcium 8.7 mg/dL (8.4-10.2); Carbon Dioxide 28 mmol/L (22-29); Chloride 102 mmol/L (96-108); Creatinine Clr Calc Pharmacy 78.2; Estimated Glomerular Filt Rate > 60; Glucose Random 222 mg/dL (60-115); Magnesium 1.9 mg/dL (1.6-2.6); Potassium 4.1 mmol/L (3.3-5.1); Sodium 139 mmol/L (135-145)
[2021-07-21] MEDS: cefTRIAXone sodium 1 GM in 0.9 % Sodium Chloride 50 ML IV (05:10)
[2021-07-21 07:27] LABS: Alanine Aminotransferase 70 U/L (0-40); Albumin Level 3.3 g/dL (3.5-5.0); Alkaline Phosphatase 364 U/L (39-117); Aspartate Amino Transferase 50 U/L (5-37); Bilirubin Total 1.5 mg/dL (0.0-1.0); Total Protein 5.7 g/dL (6.5-8.0)
[2021-07-21 07:30] LABS: Glucose, Whole Blood 217 mg/dL (60-115)
[2021-07-21] MEDS: Insulin Lispro 100 UNIT/ML 3 ML VIAL SUBCUT ×4 (07:59→20:44)
[2021-07-21] MEDS: Metoprolol Succinate ER 50 MG TAB.ER.24H PO (08:00)
[2021-07-21] MEDS: DULoxetine HCl 60 MG CAPSULE.DR PO ×2 (08:00→20:44)
[2021-07-21] MEDS: Cholecalciferol (Vitamin D3) 25 MCG TABLET PO (08:00)
[2021-07-21] MEDS: Cyanocobalamin (Vitamin B-12) 1,000 MCG TABLET 1000 MCG PO (08:00)
[2021-07-21] MEDS: Ascorbic Acid 250 MG TABLET PO (08:01)
[2021-07-21] MEDS: Memantine HCl 10 MG TABLET PO ×2 (08:01→20:44)
[2021-07-21] MEDS: Donepezil HCl 10 MG TABLET PO (08:01)
[2021-07-21] MEDS: Losartan Potassium 50 MG TABLET PO (08:01)
--- NOTE | 2021-07-21 10:34 | P.PNCA_ITS ---
Subjective Subjective Date of Service: 07/21/21 Interval history: He feels well. No cardiac symptoms. Review of Systems Review of Systems Yes all other systems are reviewed and are negative Cardiovascular: Reports as per HPI, Reports no additional cardiovascular complaints, Denies acrocyanosis, Denies cool extremities, Denies painful fingertips, Denies chest pain, Denies chest pain at rest, Denies diaphoresis, Denies syncope, Denies irregular heart rhythm, Denies claudication, Denies leg edema, Denies lightheadedness, Denies palpitations and Denies dyspnea Respiratory: Denies dyspnea Denies syncope Endocrine: Denies palpitations Physical Exam Vital Signs: Last Vital Signs Temp 98.3 F 07/21/21 07:27 Pulse 89 07/21/21 08:01 Resp 20 07/21/21 07:27 BP 186/81 H 07/21/21 08:01 Pulse Ox 92 07/21/21 07:27 Body Mass Index 36.6 Const General: cooperative and no acute distress HENMD Other: Unremarkable Neck Neck: Yes normal visual inspection Chest Chest palpation & inspection: normal inspection of the chest Resp Auscultation: clear to auscultation bilaterally, no crackles and no wheezes Cardio Jugular venous distension: no JVD Palpation: normal PMI Heart sounds: S1 normal heart sound present, S2 normal heart sound present, no gallops, no murmurs and no rubs GI Palpation (GI): Soft to palpation Back/Spine/Pelvis Other: unremarkable Skin General skin exam: no rashes or lesions noted Neuro Cranial nerves: Yes Other cranial nerve findings present Extrem General: Yes no clubbing, cyanosis or edema Psych Mental Status: other Objective Labs and Meds Result diagrams: 07/21/21 04:36 07/21/21 04:36 Lab results: Laboratory Results - last 24 hr 07/20/21 07/20/21 07/20/21 11:10 16:17 19:45 WBC RBC Hgb Hct MCV MCH MCHC RDW Plt Count MPV Immature Gran % (Auto) Neut % (Auto) Lymph % (Auto) [place] % (Auto) Eos % (Auto) Baso % (Auto) Lymph # (Auto) [place] # (Auto) Eos # (Auto) Baso # (Auto) Abs Immat Gran (auto) Absolute Neuts (auto) Absolute Nucleated RBC Nucleated RBC % (auto) Sodium Potassium Chloride Carbon Dioxide Anion Gap BUN Creatinine Estim Creat Clear Calc Estimated GFR POC Glucose 413 H* 348 H 275 H Random Glucose Fasting Glucose Calcium Magnesium Total Bilirubin AST ALT Alkaline Phosphatase Total Protein Albumin 07/21/21 07/21/21 07/21/21 04:36 04:36 04:36 WBC 10.3 RBC 4.65 Hgb 13.9 L Hct 42.1 MCV 90.5 MCH 29.9 MCHC 33.0 RDW 15.3 Plt Count 195 MPV 11.1 Immature Gran % (Auto) 1.2 H Neut % (Auto) 62.1 Lymph % (Auto) 24.6 [place] % (Auto) 9.1 Eos % (Auto) 2.3 Baso % (Auto) 0.7 Lymph # (Auto) 2.5 [place] # (Auto) 0.9 Eos # (Auto) 0.2 Baso # (Auto) 0.1 Abs Immat Gran (auto) 0.12 H Absolute Neuts (auto) 6.4 Absolute Nucleated RBC 0.000 Nucleated RBC % (auto) 0.0 Sodium Cancelled 139 Potassium Cancelled 4.1 Chloride Cancelled 102 Carbon Dioxide Cancelled 28 Anion Gap Cancelled 13 BUN Cancelled 16 Creatinine Cancelled 0.99 Estim Creat Clear Calc Cancelled 78.2 Estimated GFR Cancelled > 60 POC Glucose Random Glucose 222 H D Fasting Glucose Cancelled Calcium Cancelled 8.7 Magnesium 1.9 Total Bilirubin Cancelled 1.5 H AST Cancelled 50 H ALT Cancelled 70 H Alkaline Phosphatase Cancelled 364 H Total Protein Cancelled 5.7 L Albumin Cancelled 3.3 L 07/21/21 07:07 WBC RBC Hgb Hct MCV MCH MCHC RDW Plt Count MPV Immature Gran % (Auto) Neut % (Auto) Lymph % (Auto) [place] % (Auto) Eos % (Auto) Baso % (Auto) Lymph # (Auto) [place] # (Auto) Eos # (Auto) Baso # (Auto) Abs Immat Gran (auto) Absolute Neuts (auto) Absolute Nucleated RBC Nucleated RBC % (auto) Sodium Potassium Chloride Carbon Dioxide Anion Gap BUN Creatinine Estim Creat Clear Calc Estimated GFR POC Glucose 217 H Random Glucose Fasting Glucose Calcium Magnesium Total Bilirubin AST ALT Alkaline Phosphatase Total Protein Albumin Progress Note: A&P Assessment and plan (1) Preoperative cardiovascular examination: Status: Acute (2) Paroxysmal atrial flutter: Status: Acute (3) Paroxysmal atrial fibrillation: Status: Acute (4) Atherosclerotic cardiovascular disease: Status: Acute Assessment and Plan: High sensitivity troponin from earlier in the admission was 9.5. As he does not feel the palpitations, he could have been having atrial arrhythmias even prior to hospitalization. Echocardiogram with LVEF 40-45% and basal inferio r/inferoseptal akinesis. Overall, intermediate cardiac risk for the gallbladder surgery and may proceed as planned. Perioperative cardiac risks include myocardial infarction discussed with daughter. Otherwise, his blood pressure is on the higher side and hence need to continue beta-blockers, losartan without interruption. May need higher doses too. Post surgery, he will need anticoagulation for the atrial fibrillation. Currently in sinus rhythm on telemetry. Fall Risk Details Current Medications: Current Medications Ascorbic Acid (Ascorbic Acid 250 Mg Tablet) 250 mg PO DAILY [facility] Last Admin: 07/21/21 08:01 Dose: 250 mg Documented by: Calcium Carbonate (Calcium Carbonate 500 Mg Tablet) 1,000 mg PO BID [facility] Last Admin: 07/21/21 08:00 Dose: 1,000 mg Documented by: Cyanocobalamin (Cyanocobalamin (Vitamin B-12) 1,000 Mcg Tablet) 1,000 mcg PO DAILY [facility] Last Admin: 07/21/21 08:00 Dose: 1,000 mcg Documented by: Dextrose (Dextrose 50 % 25 Gm/50 Ml Vial) 25 gm IVPUSH Q15M PRN; Protocol PRN Reason: per Hypoglycemia Standing Ord. Donepezil HCl (Donepezil Hcl 10 Mg Tablet) 10 mg PO DAILY [facility] Last Admin: 07/21/21 08:01 Dose: 10 mg Documented by: Duloxetine HCl (Duloxetine Hcl 60 Mg Capsule.Dr) 60 mg PO BID [facility] Last Admin: 07/21/21 08:00 Dose: 60 mg Documented by: Glucose (Glucose Gel 15 Gm Gel..Gram.) 15 gm PO Q15M PRN; Protocol PRN Reason: per Hypoglycemia Standing Ord. Hydromorphone HCl (Hydromorphone Hcl 0.5 Mg/0.5 Ml Syringe) 0.5 mg IVPUSH Q4H PRN; Protocol PRN Reason: Pain, Moderate (Pain Scale 4-6 Last Admin: 07/20/21 11:49 Dose: 0.5 mg Documented by: Ceftriaxone Sodium 1 gm/ (Sodium Chloride) 50 mls @ 100 mls/hr IV Q24H [facility] Last Infusion: 07/21/21 05:45 Dose: Infused Documented by: Insulin Glargine (Insulin Glargine,Hum.Rec.Anlog 100 Unit/Ml 10 Ml Vial) 30 unit SUBCUT BEDTIME [facility] Last Admin: 07/20/21 20:37 Dose: 30 unit Documented by: Insulin Human Lispro (Insulin Lispro 100 Unit/Ml 3 Ml Vial) 0.1 - 10 unit SUBCUT QIDACHS [facility]; Protocol Last Admin: 07/21/21 07:59 Dose: 4 unit Documented by: Losartan Potassium (Losartan Potassium 50 Mg Tablet) 50 mg PO DAILY [facility]; Protocol Last Admin: 07/21/21 08:01 Dose: 50 mg Documented by: Melatonin (Melatonin 3 Mg Tablet) 6 mg PO BEDTIME PRN PRN Reason: Insomnia Memantine (Memantine Hcl 10 Mg Tablet) 10 mg PO BID [facility] Last Admin: 07/21/21 08:01 Dose: 10 mg Documented by: Metoprolol Succinate (Metoprolol Succinate Er 50 Mg Tab.Er.24h) 50 mg PO DAILY [facility]; Protocol Last Admin: 07/21/21 08:00 Dose: 50 mg Documented by: Metronidazole (Metronidazole 500 Mg Tablet) 500 mg PO Q8H [facility] Last Admin: 07/21/21 08:01 Dose: 500 mg Documented by: Omeprazole (Omeprazole 20 Mg Capsule.Dr) 20 mg PO DAILY@0630 [facility] Last Admin: 07/21/21 05:51 Dose: Not Given Documented by: Oxycodone HCl (Oxycodone Hcl Immed Release 5 Mg Tablet) 10 mg PO Q6H PRN PRN Reason: Pain, Moderate (Pain Scale 4-6 Last Admin: 07/20/21 15:01 Dose: 10 mg Documented by: Pharmacy Consult (Consult Rx Perform Med Rec) 1 each MISCELLANE ONCE PRN PRN Reason: Consult order Sodium Chloride (0.9 % Sodium Chloride Flush 3 Ml Syringe) 3 ml IVFLUSH QSHIFT [facility] Last Admin: 07/21/21 08:01 Dose: 3 ml Documented by: Vitamin D (Cholecalciferol (Vitamin D3) 25 Mcg Tablet) 25 mcg PO DAILY [facility] Last Admin: 07/21/21 08:00 Dose: 25 mcg Documented by: Time Spent With Patient Time: Total time spent is greater than 50% in coordination of care (as documented) at patient's floor/unit and/or counseling patient: Time with patient: less than 15 minutes Progress Note: Quality Stroke Does the patient have a stroke diagnosis?: No Procedures Date of Service Date of Service: 07/21/21
[2021-07-21 11:28] LABS: Glucose, Whole Blood 287 mg/dL (60-115)
--- NOTE | 2021-07-21 14:41 | P.PNIM_ITS ---
Subjective Subjective Date of Service: 07/21/21 Interval History: Seen and examined this morning follow up cholecystitis having some upper abdominal pain no nausea/vomiting no fever/chills Physical Exam Vital Signs: Vital Signs: Last Vital Signs Temp 97.7 F 07/21/21 11:18 Pulse 67 07/21/21 11:18 Resp 18 07/21/21 11:18 BP 134/75 07/21/21 11:18 Pulse Ox 95 07/21/21 11:18 BMI result Body Mass Index 36.6 Const: Nutritional Appearance: well nourished Orientation/consciousness: patient oriented x3 HENMT: Head: Yes normocephalic and Yes atraumatic Eyes: Sclerae: sclerae normal Resp: Effort & Inspection: normal respiratory effort and no respiratory distress Cardio: Rate: regular rate Rhythm: regular rhythm GI: Other: mild tenderness RUQ Inspection: No distended Palpation (GI): Soft to palpation Neuro: General: patient oriented x3 Cranial nerves: Yes CN's II-XII intact bilaterally and Yes Bilaterally intact EOM present Extrem: Other: able to move all 4 extremities spontaneously Objective Data Active Medications Ascorbic Acid (Ascorbic Acid 250 Mg Tablet) 250 mg PO DAILY [facility] Last Admin: 07/21/21 08:01 Dose: 250 mg Documented by: DEVON Calcium Carbonate (Calcium Carbonate 500 Mg Tablet) 1,000 mg PO BID [facility] Last Admin: 07/21/21 08:00 Dose: 1,000 mg Documented by: DEVON Cyanocobalamin (Cyanocobalamin (Vitamin B-12) 1,000 Mcg Tablet) 1,000 mcg PO DAILY [facility] Last Admin: 07/21/21 08:00 Dose: 1,000 mcg Documented by: DEVON Dextrose (Dextrose 50 % 25 Gm/50 Ml Vial) 25 gm IVPUSH Q15M PRN; Protocol PRN Reason: per Hypoglycemia Standing Ord. Donepezil HCl (Donepezil Hcl 10 Mg Tablet) 10 mg PO DAILY [facility] Last Admin: 07/21/21 08:01 Dose: 10 mg Documented by: DEVON Duloxetine HCl (Duloxetine Hcl 60 Mg Capsule.Dr) 60 mg PO BID [facility] Last Admin: 07/21/21 08:00 Dose: 60 mg Documented by: DEVON Glucose (Glucose Gel 15 Gm Gel..Gram.) 15 gm PO Q15M PRN; Protocol PRN Reason: per Hypoglycemia Standing Ord. Hydromorphone HCl (Hydromorphone Hcl 0.5 Mg/0.5 Ml Syringe) 0.5 mg IVPUSH Q4H PRN; Protocol PRN Reason: Pain, Moderate (Pain Scale 4-6 Last Admin: 07/20/21 11:49 Dose: 0.5 mg Documented by: JASMIN Ceftriaxone Sodium 1 gm/ (Sodium Chloride) 50 mls @ 100 mls/hr IV Q24H [facility] Last Infusion: 07/21/21 05:45 Dose: 0 mls/hr Documented by: RAMBO Insulin Glargine (Insulin Glargine,Hum.Rec.Anlog 100 Unit/Ml 10 Ml Vial) 30 unit SUBCUT BEDTIME [facility] Last Admin: 07/20/21 20:37 Dose: 30 unit Documented by: RAMBO Insulin Human Lispro (Insulin Lispro 100 Unit/Ml 3 Ml Vial) 0.1 - 10 unit SUBCUT QIDACHS [facility]; Protocol Last Admin: 07/21/21 11:59 Dose: 6 unit Documented by: DEVON Losartan Potassium (Losartan Potassium 50 Mg Tablet) 50 mg PO DAILY [facility]; Protocol Last Admin: 07/21/21 08:01 Dose: 50 mg Documented by: DEVON Melatonin (Melatonin 3 Mg Tablet) 6 mg PO BEDTIME PRN PRN Reason: Insomnia Memantine (Memantine Hcl 10 Mg Tablet) 10 mg PO BID [facility] Last Admin: 07/21/21 08:01 Dose: 10 mg Documented by: DEVON Metoprolol Succinate (Metoprolol Succinate Er 50 Mg Tab.Er.24h) 50 mg PO DAILY [facility]; Protocol Last Admin: 07/21/21 08:00 Dose: 50 mg Documented by: DEVON Metronidazole (Metronidazole 500 Mg Tablet) 500 mg PO Q8H [facility] Last Admin: 07/21/21 08:01 Dose: 500 mg Documented by: DEVON Omeprazole (Omeprazole 20 Mg Capsule.Dr) 20 mg PO DAILY@0630 [facility] Last Admin: 07/21/21 05:51 Dose: Not Given Documented by: RAMBO Non-Admin Reason: NPO Oxycodone HCl (Oxycodone Hcl Immed Release 5 Mg Tablet) 10 mg PO Q6H PRN PRN Reason: Pain, Moderate (Pain Scale 4-6 Last Admin: 07/20/21 15:01 Dose: 10 mg Documented by: JASMIN Pharmacy Consult (Consult Rx Perform Med Rec) 1 each MISCELLANE ONCE PRN PRN Reason: Consult order Sodium Chloride (0.9 % Sodium Chloride Flush 3 Ml Syringe) 3 ml IVFLUSH QSHIFT [facility] Last Admin: 07/21/21 08:01 Dose: 3 ml Documented by: DEVON Vitamin D (Cholecalciferol (Vitamin D3) 25 Mcg Tablet) 25 mcg PO DAILY [facility] Last Admin: 07/21/21 08:00 Dose: 25 mcg Documented by: DEVON Labs CBC & Chem 7: 07/21/21 04:36 07/21/21 04:36 Labs: Laboratory Results - last 24 hr 07/20/21 07/20/21 07/21/21 16:17 19:45 04:36 MCV 90.5 MCH 29.9 MCHC 33.0 RDW 15.3 Plt Count 195 MPV 11.1 Immature Gran % (Auto) 1.2 H Neut % (Auto) 62.1 Lymph % (Auto) 24.6 [place] % (Auto) 9.1 Eos % (Auto) 2.3 Baso % (Auto) 0.7 Lymph # (Auto) 2.5 [place] # (Auto) 0.9 Eos # (Auto) 0.2 Baso # (Auto) 0.1 Abs Immat Gran (auto) 0.12 H Absolute Neuts (auto) 6.4 Absolute Nucleated RBC 0.000 Nucleated RBC % (auto) 0.0 Anion Gap Estim Creat Clear Calc Estimated GFR POC Glucose 348 H 275 H Random Glucose Fasting Glucose Calcium Magnesium Total Bilirubin AST ALT Alkaline Phosphatase Total Protein Albumin 07/21/21 07/21/21 07/21/21 04:36 04:36 07:07 MCV MCH MCHC RDW Plt Count MPV Immature Gran % (Auto) Neut % (Auto) Lymph % (Auto) [place] % (Auto) Eos % (Auto) Baso % (Auto) Lymph # (Auto) [place] # (Auto) Eos # (Auto) Baso # (Auto) Abs Immat Gran (auto) Absolute Neuts (auto) Absolute Nucleated RBC Nucleated RBC % (auto) Anion Gap Cancelled 13 Estim Creat Clear Calc Cancelled 78.2 Estimated GFR Cancelled > 60 POC Glucose 217 H Random Glucose 222 H D Fasting Glucose Cancelled Calcium Cancelled 8.7 Magnesium 1.9 Total Bilirubin Cancelled 1.5 H AST Cancelled 50 H ALT Cancelled 70 H Alkaline Phosphatase Cancelled 364 H Total Protein Cancelled 5.7 L Albumin Cancelled 3.3 L 07/21/21 11:18 MCV MCH MCHC RDW Plt Count MPV Immature Gran % (Auto) Neut % (Auto) Lymph % (Auto) [place] % (Auto) Eos % (Auto) Baso % (Auto) Lymph # (Auto) [place] # (Auto) Eos # (Auto) Baso # (Auto) Abs Immat Gran (auto) Absolute Neuts (auto) Absolute Nucleated RBC Nucleated RBC % (auto) Anion Gap Estim Creat Clear Calc Estimated GFR POC Glucose 287 H Random Glucose Fasting Glucose Calcium Magnesium Total Bilirubin AST ALT Alkaline Phosphatase Total Protein Albumin Assessment and Plan (1) Paroxysmal atrial flutter: Status: Acute (2) Acute calculous cholecystitis: Status: Acute (3) Diabetes: Status: Acute (4) Bacteremia: Status: Acute Assessment and Plan: 71-year-old male with a past medical history of hypertension, hyperlipidemia, diabetes, coronary artery disease status post CABG, obesity, KATINA on CPAP, history of Alzheimer's dementia presented to the hospital with a chief complaint of right upper quadrant abdominal pain/noted to have acute cholecystitis/gallstones/transaminitis.? Pain? improved with NPO status pain Atrial flutter question of whether this was new however on the during this admission he was in aflutter. According to cardiology notes the patient may vaguely remember having an arrhythmia and remembering the medication Coumadin Not currently on any anticoagulation and will need to be postoperatively. CHADS2 Vasc score 3, Has Bled score 2 Echo shows EF 40-45% with basal inferior and basal inferoseptal akinesis, no further workup at this time per cardiology Acute cholecystitis/gallstones Plan for surgery tomorrow Bacteremia. Clostridium perfringens Escherichia coli Will continue IV ceftriaxone/metronidazole As per?ID, continue antibiotics pending cholecystectomy ? ? Cholestatic LFTs stable Hypertension Continue losartan/metoprolol as per outpatient dosing CAD Aspirin on hold pending procedure.? Continue other therapies Type 2 diabetes requiring insulin Continue sliding scale;? Lantus added back follow response GERD Continue PPI Mood continue cymbalta dementia continue aricept, namenda KATINA continue cpap DVT prophylaxis: SCD boots Code status: Full code Attending Dr. Up Quality Stroke Does the patient have a stroke diagnosis?: No VTE Prior VTE?: No VTE Risk Level:: Medical - moderate - high VTE Device Contraindication: N/A - Device Ordered VTE Drug Contraindication: Treatment Not Indicated
--- NOTE | 2021-07-21 14:46 | MHC.CM.PN ---
Male 71 DX Jazlyn is NPO after Midnight 07/22/21. He is scheduled for surgery tomorrow. DP Home with resumption of MOW and SHIRT CLEANER. PAtient may benefit from VNA services. preferences obtaine and referal sent. Pts dtr will provide transportation.
--- NOTE | 2021-07-21 15:41 | PM.PNGS ---
Subjective Subjective Date of Service: 07/21/21 Interval history: He says he still has occasional pain on the right side although this to be less noticeable He denies any new complaints Physical Exam Vital Signs: Vital Signs: Last Vital Signs Temp 97.7 F 07/21/21 11:18 Pulse 67 07/21/21 11:18 Resp 18 07/21/21 11:18 BP 134/75 07/21/21 11:18 Pulse Ox 95 07/21/21 11:18 BMI result Body Mass Index 36.6 Const: Other: Using CPAP when in bed General: comfortable and no acute distress Resp: Effort & Inspection: normal respiratory effort Cardio: Rate: regular rate GI: Palpation (GI): Soft to palpation, not firm and no guarding Objective Data Active Medications Ascorbic Acid (Ascorbic Acid 250 Mg Tablet) 250 mg PO DAILY [facility] Last Admin: 07/21/21 08:01 Dose: 250 mg Documented by: DEVON Calcium Carbonate (Calcium Carbonate 500 Mg Tablet) 1,000 mg PO BID [facility] Last Admin: 07/21/21 08:00 Dose: 1,000 mg Documented by: DEVON Cyanocobalamin (Cyanocobalamin (Vitamin B-12) 1,000 Mcg Tablet) 1,000 mcg PO DAILY [facility] Last Admin: 07/21/21 08:00 Dose: 1,000 mcg Documented by: DEVON Dextrose (Dextrose 50 % 25 Gm/50 Ml Vial) 25 gm IVPUSH Q15M PRN; Protocol PRN Reason: per Hypoglycemia Standing Ord. Donepezil HCl (Donepezil Hcl 10 Mg Tablet) 10 mg PO DAILY [facility] Last Admin: 07/21/21 08:01 Dose: 10 mg Documented by: DEVON Duloxetine HCl (Duloxetine Hcl 60 Mg Capsule.Dr) 60 mg PO BID [facility] Last Admin: 07/21/21 08:00 Dose: 60 mg Documented by: DEVON Glucose (Glucose Gel 15 Gm Gel..Gram.) 15 gm PO Q15M PRN; Protocol PRN Reason: per Hypoglycemia Standing Ord. Hydromorphone HCl (Hydromorphone Hcl 0.5 Mg/0.5 Ml Syringe) 0.5 mg IVPUSH Q4H PRN; Protocol PRN Reason: Pain, Moderate (Pain Scale 4-6 Last Admin: 07/20/21 11:49 Dose: 0.5 mg Documented by: JASMIN Ceftriaxone Sodium 1 gm/ (Sodium Chloride) 50 mls @ 100 mls/hr IV Q24H [facility] Last Infusion: 07/21/21 05:45 Dose: 0 mls/hr Documented by: RAMBO Insulin Glargine (Insulin Glargine,Hum.Rec.Anlog 100 Unit/Ml 10 Ml Vial) 30 unit SUBCUT BEDTIME [facility] Last Admin: 07/20/21 20:37 Dose: 30 unit Documented by: RAMBO Insulin Human Lispro (Insulin Lispro 100 Unit/Ml 3 Ml Vial) 0.1 - 10 unit SUBCUT QIDACHS [facility]; Protocol Last Admin: 07/21/21 11:59 Dose: 6 unit Documented by: DEVON Losartan Potassium (Losartan Potassium 50 Mg Tablet) 50 mg PO DAILY [facility]; Protocol Last Admin: 07/21/21 08:01 Dose: 50 mg Documented by: DEVON Melatonin (Melatonin 3 Mg Tablet) 6 mg PO BEDTIME PRN PRN Reason: Insomnia Memantine (Memantine Hcl 10 Mg Tablet) 10 mg PO BID [facility] Last Admin: 07/21/21 08:01 Dose: 10 mg Documented by: DEVON Metoprolol Succinate (Metoprolol Succinate Er 50 Mg Tab.Er.24h) 50 mg PO DAILY [facility]; Protocol Last Admin: 07/21/21 08:00 Dose: 50 mg Documented by: DEVON Metronidazole (Metronidazole 500 Mg Tablet) 500 mg PO Q8H [facility] Last Admin: 07/21/21 08:01 Dose: 500 mg Documented by: DEVON Omeprazole (Omeprazole 20 Mg Capsule.Dr) 20 mg PO DAILY@0630 [facility] Last Admin: 07/21/21 05:51 Dose: Not Given Documented by: RAMBO Non-Admin Reason: NPO Oxycodone HCl (Oxycodone Hcl Immed Release 5 Mg Tablet) 10 mg PO Q6H PRN PRN Reason: Pain, Moderate (Pain Scale 4-6 Last Admin: 07/20/21 15:01 Dose: 10 mg Documented by: JASMIN Pharmacy Consult (Consult Rx Perform Med Rec) 1 each MISCELLANE ONCE PRN PRN Reason: Consult order Sodium Chloride (0.9 % Sodium Chloride Flush 3 Ml Syringe) 3 ml IVFLUSH QSHIFT [facility] Last Admin: 07/21/21 08:01 Dose: 3 ml Documented by: DEVON Vitamin D (Cholecalciferol (Vitamin D3) 25 Mcg Tablet) 25 mcg PO DAILY [facility] Last Admin: 07/21/21 08:00 Dose: 25 mcg Documented by: DEVON Labs CBC & Chem 7: 07/21/21 04:36 07/21/21 04:36 Labs: Laboratory Results - last 24 hr 07/20/21 07/20/21 07/21/21 16:17 19:45 04:36 MCV 90.5 MCH 29.9 MCHC 33.0 RDW 15.3 Plt Count 195 MPV 11.1 Immature Gran % (Auto) 1.2 H Neut % (Auto) 62.1 Lymph % (Auto) 24.6 Lyon % (Auto) 9.1 Eos % (Auto) 2.3 Baso % (Auto) 0.7 Lymph # (Auto) 2.5 Lyon # (Auto) 0.9 Eos # (Auto) 0.2 Baso # (Auto) 0.1 Abs Immat Gran (auto) 0.12 H Absolute Neuts (auto) 6.4 Absolute Nucleated RBC 0.000 Nucleated RBC % (auto) 0.0 Anion Gap Estim Creat Clear Calc Estimated GFR POC Glucose 348 H 275 H Random Glucose Fasting Glucose Calcium Magnesium Total Bilirubin AST ALT Alkaline Phosphatase Total Protein Albumin 07/21/21 07/21/21 07/21/21 04:36 04:36 07:07 MCV MCH MCHC RDW Plt Count MPV Immature Gran % (Auto) Neut % (Auto) Lymph % (Auto) Lyon % (Auto) Eos % (Auto) Baso % (Auto) Lymph # (Auto) Lyon # (Auto) Eos # (Auto) Baso # (Auto) Abs Immat Gran (auto) Absolute Neuts (auto) Absolute Nucleated RBC Nucleated RBC % (auto) Anion Gap Cancelled 13 Estim Creat Clear Calc Cancelled 78.2 Estimated GFR Cancelled > 60 POC Glucose 217 H Random Glucose 222 H D Fasting Glucose Cancelled Calcium Cancelled 8.7 Magnesium 1.9 Total Bilirubin Cancelled 1.5 H AST Cancelled 50 H ALT Cancelled 70 H Alkaline Phosphatase Cancelled 364 H Total Protein Cancelled 5.7 L Albumin Cancelled 3.3 L 07/21/21 11:18 MCV MCH MCHC RDW Plt Count MPV Immature Gran % (Auto) Neut % (Auto) Lymph % (Auto) Lyon % (Auto) Eos % (Auto) Baso % (Auto) Lymph # (Auto) Lyon # (Auto) Eos # (Auto) Baso # (Auto) Abs Immat Gran (auto) Absolute Neuts (auto) Absolute Nucleated RBC Nucleated RBC % (auto) Anion Gap Estim Creat Clear Calc Estimated GFR POC Glucose 287 H Random Glucose Fasting Glucose Calcium Magnesium Total Bilirubin AST ALT Alkaline Phosphatase Total Protein Albumin Procedures Date of Service Date of Service: 07/22/21 Progress Note: A&P Assessment and plan (1) Acute calculous cholecystitis: Status: Acute Assessment and Plan: He wants to proceed with laparoscopic cholecystectomy. He has been cleared by the icu clerk already. This do had been cancel last Monday because of his new onset atrial flutter. I reviewed with him the technique of the procedure. I explained the risks including but not limited to bleeding, infections, injury to bowel, liver and bile duct, retained stones and bile leak, as well as the benefits and alternatives. He understands and wants to proceed. This will be scheduled for tomorrow in the operating room. I have discussed this with his daughter Robyn Fall Risk Details Current Medications: Current Medications Ascorbic Acid (Ascorbic Acid 250 Mg Tablet) 250 mg PO DAILY [facility] Last Admin: 07/21/21 08:01 Dose: 250 mg Documented by: Calcium Carbonate (Calcium Carbonate 500 Mg Tablet) 1,000 mg PO BID [facility] Last Admin: 07/21/21 08:00 Dose: 1,000 mg Documented by: Cyanocobalamin (Cyanocobalamin (Vitamin B-12) 1,000 Mcg Tablet) 1,000 mcg PO DAILY [facility] Last Admin: 07/21/21 08:00 Dose: 1,000 mcg Documented by: Dextrose (Dextrose 50 % 25 Gm/50 Ml Vial) 25 gm IVPUSH Q15M PRN; Protocol PRN Reason: per Hypoglycemia Standing Ord. Donepezil HCl (Donepezil Hcl 10 Mg Tablet) 10 mg PO DAILY [facility] Last Admin: 07/21/21 08:01 Dose: 10 mg Documented by: Duloxetine HCl (Duloxetine Hcl 60 Mg Capsule.) 60 mg PO BID [facility] Last Admin: 07/21/21 08:00 Dose: 60 mg Documented by: Glucose (Glucose Gel 15 Gm Gel..Gram.) 15 gm PO Q15M PRN; Protocol PRN Reason: per Hypoglycemia Standing Ord. Hydromorphone HCl (Hydromorphone Hcl 0.5 Mg/0.5 Ml Syringe) 0.5 mg IVPUSH Q4H PRN; Protocol PRN Reason: Pain, Moderate (Pain Scale 4-6 Last Admin: 07/20/21 11:49 Dose: 0.5 mg Documented by: Ceftriaxone Sodium 1 gm/ (Sodium Chloride) 50 mls @ 100 mls/hr IV Q24H [facility] Last Infusion: 07/21/21 05:45 Dose: Infused Documented by: Insulin Glargine (Insulin Glargine,Hum.Rec.Anlog 100 Unit/Ml 10 Ml Vial) 30 unit SUBCUT BEDTIME [facility] Last Admin: 07/20/21 20:37 Dose: 30 unit Documented by: Insulin Human Lispro (Insulin Lispro 100 Unit/Ml 3 Ml Vial) 0.1 - 10 unit SUBCUT QIDACHS [facility]; Protocol Last Admin: 07/21/21 11:59 Dose: 6 unit Documented by: Losartan Potassium (Losartan Potassium 50 Mg Tablet) 50 mg PO DAILY [facility]; Protocol Last Admin: 07/21/21 08:01 Dose: 50 mg Documented by: Melatonin (Melatonin 3 Mg Tablet) 6 mg PO BEDTIME PRN PRN Reason: Insomnia Memantine (Memantine Hcl 10 Mg Tablet) 10 mg PO BID [facility] Last Admin: 07/21/21 08:01 Dose: 10 mg Documented by: Metoprolol Succinate (Metoprolol Succinate Er 50 Mg Tab.Er.24h) 50 mg PO DAILY [facility]; Protocol Last Admin: 07/21/21 08:00 Dose: 50 mg Documented by: Metronidazole (Metronidazole 500 Mg Tablet) 500 mg PO Q8H [facility] Last Admin: 07/21/21 08:01 Dose: 500 mg Documented by: Omeprazole (Omeprazole 20 Mg Capsule.) 20 mg PO DAILY@0630 [facility] Last Admin: 07/21/21 05:51 Dose: Not Given Documented by: Oxycodone HCl (Oxycodone Hcl Immed Release 5 Mg Tablet) 10 mg PO Q6H PRN PRN Reason: Pain, Moderate (Pain Scale 4-6 Last Admin: 07/20/21 15:01 Dose: 10 mg Documented by: Pharmacy Consult (Consult Rx Perform Med Rec) 1 each MISCELLANE ONCE PRN PRN Reason: Consult order Sodium Chloride (0.9 % Sodium Chloride Flush 3 Ml Syringe) 3 ml IVFLUSH QSHIFT [facility] Last Admin: 07/21/21 08:01 Dose: 3 ml Documented by: Vitamin D (Cholecalciferol (Vitamin D3) 25 Mcg Tablet) 25 mcg PO DAILY [facility] Last Admin: 07/21/21 08:00 Dose: 25 mcg Documented by: Time Spent With Patient Time: Total time spent is greater than 50% in coordination of care (as documented) at patient's floor/unit and/or counseling patient: Time with patient: 15 - 24 minutes Quality Stroke Does the patient have a stroke diagnosis?: No VTE Prior VTE?: No VTE Risk Level:: Medical - moderate - high VTE Device Contraindication: N/A - Device Ordered VTE Drug Contraindication: Treatment Not Indicated
[2021-07-21 16:18] LABS: Glucose, Whole Blood 312 mg/dL (60-115)
[2021-07-21 20:42] LABS: Glucose, Whole Blood 348 mg/dL (60-115)
[2021-07-21] MEDS: Insulin Glargine,Hum.rec.anlog 100 UNIT/ML 10 ML VIAL 30 UNIT SUBCUT (20:44)
[2021-07-22] VITALS (23 sets, daily range): BP systolic 119–192; BP diastolic 65–89; PULSE 50–86; RESP 14–24; TEMP 36.2–37.3; O2SAT 17–96
[2021-07-22] MEDS: cefTRIAXone sodium 1 GM in 0.9 % Sodium Chloride 50 ML IV (05:17)
[2021-07-22] MEDS: 0.9 % Sodium Chloride Flush 3 ML SYRINGE IVFLUSH ×3 (07:12→20:17)
[2021-07-22 07:22] LABS: MANUAL DIFF FLAG NO
[2021-07-22 07:27] LABS: Basophils Absolute Auto 0.1 X10*3/uL (0.0-0.2); Basophils Percent Auto 0.7 % (0-2); Eosinophils Absolute Auto 0.2 X10*3/uL (0.0-0.4); Eosinophils Percent Auto 1.8 % (0-4); Hematocrit 43.5 % (42.0-52.0); Hemoglobin 14.5 g/dl (14.0-18.0); Imm Gran Abs Auto 0.07 X10*3/uL (0.00-0.03); Imm Gran Pct Auto 0.8 % (0.0-0.4); Lymphocytes Absolute Auto 2.2 X10*3/uL (1.2-4.9); Lymphocytes Percent Auto 25.8 % (20-40); Mean Corpuscular HGB Conc 33.3 g/dl (31.0-36.0); Mean Corpuscular Hemoglobin 29.7 pg (27.0-33.0); Monocytes Absolute Auto 0.8 X10*3/uL (0.1-1.2); Monocytes Percent Auto 9.3 % (2-11); Neutrophils Absolute Auto 5.3 x10*3/uL (2.0-8.3); Neutrophils Percent Auto 61.6 % (45-73); Platelet Count 196 X10*3/uL (160-400); Red Blood Count 4.89 X10*6/uL (4.60-5.80); Red Cell Distribution Width 14.9 % (11.0-16.0); White Blood Count 8.5 X10*3/uL (4.8-10.8)
[2021-07-22 07:35] LABS: Glucose, Whole Blood 272 mg/dL (60-115)
[2021-07-22 07:45] LABS: Alanine Aminotransferase 66 U/L (0-40); Albumin Level 3.4 g/dL (3.5-5.0); Alkaline Phosphatase 414 U/L (39-117); Anion Gap 16 (12-20); Aspartate Amino Transferase 48 U/L (5-37); Bilirubin Direct 0.9 mg/dL (0.0-0.5); Bilirubin Total 1.4 mg/dL (0.0-1.0); Blood Urea Nitrogen 12 mg/dL (9-16); Calcium 8.9 mg/dL (8.4-10.2); Carbon Dioxide 23 mmol/L (22-29); Chloride 102 mmol/L (96-108); Creatinine Clr Calc Pharmacy 91.1; Estimated Glomerular Filt Rate > 60; Glucose Random 292 mg/dL (60-115); Sodium 137 mmol/L (135-145); Total Protein 6.1 g/dL (6.5-8.0)
--- NOTE | 2021-07-22 11:06 | W.PM.OPN ---
Operative Note Operative Note Date of Service: 07/22/21 Narrative: Preop diagnosis: acute cholecysitis, recent abnomral LFTs Postop diagnosis: The same Procedure: Laparoscopic cholecystectomy Ssurgeon: Karel Padilla MD assistant to the vice president: GUERA Figueroa The patient is the 71-year-old male admitted because of abdominal pain with note of elevated bilirubin. MRCP did not show any CBD stones. He did have signs of acute cholecystitis on imaging studies. We had dated for his bilirubin to go down to near normal. He was actually scheduled for cholecystectomy 3 days ago but this had to be canceled because of new onset atrial flutter. He was eventually cleared by the waredresser. He understood the technique of the procedure as well as the risks, benefits, and alternatives . He was brought to the operating room and placed supine on the table under general anesthesia via endotracheal tube. The abdomen was prepped and draped in the usual sterile fashion. A surgical time-out was done. The patient received Cefotan 2 g IV preoperatively. I made a short incision on the supraumbilical margin using a blade 15 and this carried down through the full-thickness skin subcutaneous fat down to the fascia. The fascia was incised. The peritoneum was entered. Through this incision a Brennan port was introduced. Pneumoperitoneum was introduced to a pressure of 15 minutes hg. From here on the rest of procedure was done under vision with the laparoscope. With laparoscopic visualization, I proceeded to then insert A 5/12 mmport in the epigastric area below the subcostal margin through a small incision. 5 mm port introduced a small incision below the subcostal margin along the anterior axillary line and the midclavicular line. Graspers were placed through these working ports. The patient was placed in head-up and [id number] position. a grasper was placed on the fundus and this was used to retract the gallbladder cephalad. Faculty with apply a grasper on the rest of the body of the gallbladder because of severe induration. Eventually is able to apply it close the pouch to retract the gallbladder laterally. At this point therefore the gallbladder was being retracted in a lateral and cephalad fashion to put the area of the cystic duct on stretch. There was a lot of indurated fatty areolar tissue surrounding the neck of the gallbladder so we had to carefully dissect this with the [place] dissector as well as with the tip of the he continued to do this to define the cystic duct and the neck of the gallbladder. By doing so were able to achieve a critical view of the hepatocystic triangle. I achieved a circumferential dissection of the cystic duct. The cystic artery was noted as well running alongside this. With confluence of the neck of the gallbladder to the cystic duct confirmed, proceeded to apply clips on the cystic duct with 2 clips being applied distally. The cystic duct was transected between clips using Endo scissors. Clips were applied on the cystic artery and this was transected between clips with Endo scissors as well . We continued to retract the gallbladder away from the rest of the hilum I then used the electrocautery spatula to dissect across indurated tissue near the hilum to the interface of the gallbladder wall liver bed. Proceeded then incised the thickened and very indurated peritoneum of the gallbladder to separate this from the liver bed. I had to alternate between the spatula as well as the hook to separate the gallbladder wall from the liver bed as there were very poor planes and the knee was markedly thickened because of acute cholecystitis I continued to separate the gallbladder from the liver bed along this poorly defined plane all the way to the fundus until the entire gallbladder was completely . There was note of stairs in the gallbladder wall with leakage of bile because of the indurated wall. The gallbladder was retrieved through an endobag through the umbilical incision. I reinserted all ports and re-insufflated. I did a lot of copious irrigation in view of some leakage of bile from the tears in the gallbladder. There was some small stones that were treated as well. I observed for hemostasis. I cauterized of the liver bed foot achieve hemostasis and applied B-cell. I observed all 4 quadrants. There was no bowel injury or any other pathology seen Once hemostasis was confirmed, proceeded to then desufflated the port sites. I removed all ports under vision with laparoscopic in the Brennan port was removed last. The fascia of the umbilical incision was closed with [id number] Dexon 0 stitch. Skin closure was achieved on all incisions using Dexon 4-0 subcuticular running sutures. Steri-Strips and dressings were applied. All incisions were infiltrated with Marcaine 0.5% for postop analgesia. The procedure was then completed The patient tolerated procedure well. No complication noted. Initial and final counts of sponges and instruments were correct. Estimated blood loss about 80 cc . The patient was extubated without difficulty and transferred to recovery room with stable vital signs.
--- NOTE | 2021-07-22 11:29 | PM.OP ---
Brief Operative Note Date of Service: 07/22/21 <Shilpa Figueroa PA-C - Last Filed: 07/22/21 11:30> Pre-op diagnosis: acute cholecystitis, elevated LFTs <Shilpa Figueroa PA-C - Last Filed: 07/22/21 11:30> Post-op diagnosis: same <Shilpa Figueroa PA-C - Last Filed: 07/22/21 11:30> Procedure: laparoscopic cholecystectomy <Shilpa Figueroa PA-C - Last Filed: 07/22/21 11:30> Surgeon: LORETO ARITA MD <Shilpa Figueroa PA-C - Last Filed: 07/22/21 11:30> Anesthesia: GETA <Shilpa Figueroa PA-C - Last Filed: 07/22/21 11:30> Was an Oil Well Gun Perforator Operator used for this Procedure?: Yes <Shilpa Figueroa PA-C - Last Filed: 07/22/21 11:30> No <Loreto Arita MD - Last Filed: 07/22/21 14:19> Oil Well Gun Perforator Operator: Shilpa Figueroa <Shilpa Figueroa PA-C - Last Filed: 07/22/21 11:30> Estimated blood loss (mL): 20 <ALTAGRACIA Gibson Last Filed: 07/22/21 11:30> Pathology: other (GALLBLADDER) <ALTAGRACIA Gibson Last Filed: 07/22/21 11:30> Condition: stable <ALTAGRACIA Gibson Last Filed: 07/22/21 11:30> Disposition: PACU <ALTAGRACIA Gibson Last Filed: 07/22/21 11:30>
[2021-07-22] MEDS: fentaNYL citrate/PF 100 MCG/2 ML VIAL 25 MCG IVPUSH ×4 (11:50→12:07)
[2021-07-22] MEDS: HYDROmorphone HCl 0.5 MG/0.5 ML SYRINGE IVPUSH ×2 (12:14→12:31)
[2021-07-22] MEDS: Memantine HCl 10 MG TABLET PO ×2 (13:09→20:03)
[2021-07-22] MEDS: DULoxetine HCl 60 MG CAPSULE.DR PO ×2 (13:09→20:03)
[2021-07-22] MEDS: Ascorbic Acid 250 MG TABLET PO (13:09)
[2021-07-22] MEDS: Cyanocobalamin (Vitamin B-12) 1,000 MCG TABLET 1000 MCG PO (13:10)
[2021-07-22] MEDS: Metoprolol Succinate ER 50 MG TAB.ER.24H PO (13:10)
[2021-07-22] MEDS: Losartan Potassium 50 MG TABLET PO (13:11)
[2021-07-22] MEDS: Donepezil HCl 10 MG TABLET PO (13:11)
[2021-07-22 13:12] LABS: Glucose, Whole Blood 354 mg/dL (60-115)
[2021-07-22] MEDS: Cholecalciferol (Vitamin D3) 25 MCG TABLET PO (13:14)
[2021-07-22] MEDS: Insulin Lispro 100 UNIT/ML 3 ML VIAL SUBCUT ×3 (13:17→21:24)
[2021-07-22] MEDS: Morphine Sulfate 2 MG/ML CARTRIDGE IVPUSH (13:24)
--- NOTE | 2021-07-22 13:24 | HO.PM.IMPN ---
Subjective Subjective Date of Service: 07/22/21 Interval History: seen and examined, has just returned from lap lis reporting abdominal pain no nausea denies sob Review of Systems Review of Systems: Yes all other systems are reviewed and are negative Constitutional Constitutional: Denies chills and Denies fever(s) Cardiovascular Cardiovascular: Denies chest pain Respiratory Respiratory: Denies cough Physical Exam Vital Signs: Vital Signs: Last Vital Signs Temp 97.5 F 07/22/21 13:11 Pulse 71 07/22/21 13:11 Resp 16 07/22/21 13:11 BP 138/65 07/22/21 13:11 Pulse Ox 91 L 07/22/21 13:11 BMI result Body Mass Index 36.6 Const: General: healthy appearing, awake and Physically active Nutritional Appearance: well nourished Orientation/consciousness: patient oriented x3 HENMT: Head: Yes normocephalic and Yes atraumatic Eyes: Sclerae: sclerae normal Resp: Other: small shallow breaths Effort & Inspection: no respiratory distress Auscultation: diminished lung sounds Cardio: Rate: regular rate Rhythm: regular rhythm GI: Other: generalized tenderness, softly distended Neuro: General: patient oriented x3 Cranial nerves: Yes CN's II-XII intact bilaterally and Yes Bilaterally intact EOM present Extrem: Other: able to move all 4 extremities spontaneously Objective Data Active Medications Ascorbic Acid (Ascorbic Acid 250 Mg Tablet) 250 mg PO DAILY [facility] Last Admin: 07/22/21 13:09 Dose: 250 mg Documented by: TATE Calcium Carbonate (Calcium Carbonate 500 Mg Tablet) 1,000 mg PO BID [facility] Last Admin: 07/22/21 13:10 Dose: 1,000 mg Documented by: TATE Cyanocobalamin (Cyanocobalamin (Vitamin B-12) 1,000 Mcg Tablet) 1,000 mcg PO DAILY [facility] Last Admin: 07/22/21 13:10 Dose: 1,000 mcg Documented by: TATE Dextrose (Dextrose 50 % 25 Gm/50 Ml Vial) 25 gm IVPUSH Q15M PRN; Protocol PRN Reason: per Hypoglycemia Standing Ord. Donepezil HCl (Donepezil Hcl 10 Mg Tablet) 10 mg PO DAILY [facility] Last Admin: 07/22/21 13:11 Dose: 10 mg Documented by: TATE Duloxetine HCl (Duloxetine Hcl 60 Mg Capsule.Dr) 60 mg PO BID [facility] Last Admin: 07/22/21 13:09 Dose: 60 mg Documented by: TATE Glucose (Glucose Gel 15 Gm Gel..Gram.) 15 gm PO Q15M PRN; Protocol PRN Reason: per Hypoglycemia Standing Ord. Ceftriaxone Sodium 1 gm/ (Sodium Chloride) 50 mls @ 100 mls/hr IV Q24H [facility] Last Infusion: 07/22/21 05:49 Dose: 0 mls/hr Documented by: TAMIA Insulin Glargine (Insulin Glargine,Hum.Rec.Anlog 100 Unit/Ml 10 Ml Vial) 30 unit SUBCUT BEDTIME [facility] Last Admin: 07/21/21 20:44 Dose: 30 unit Documented by: LAYLA Insulin Human Lispro (Insulin Lispro 100 Unit/Ml 3 Ml Vial) 0.1 - 10 unit SUBCUT QIDACHS [facility]; Protocol Last Admin: 07/22/21 13:17 Dose: 10 unit Documented by: TATE Losartan Potassium (Losartan Potassium 50 Mg Tablet) 50 mg PO DAILY [facility]; Protocol Last Admin: 07/22/21 13:11 Dose: 50 mg Documented by: TATE Melatonin (Melatonin 3 Mg Tablet) 6 mg PO BEDTIME PRN PRN Reason: Insomnia Memantine (Memantine Hcl 10 Mg Tablet) 10 mg PO BID [facility] Last Admin: 07/22/21 13:09 Dose: 10 mg Documented by: TATE Metoprolol Succinate (Metoprolol Succinate Er 50 Mg Tab.Er.24h) 50 mg PO DAILY [facility]; Protocol Last Admin: 07/22/21 13:10 Dose: 50 mg Documented by: TATE Metronidazole (Metronidazole 500 Mg Tablet) 500 mg PO Q8H [facility] Last Admin: 07/22/21 12:50 Dose: Not Given Documented by: TATE Non-Admin Reason: was NPO next ordered time close Morphine Sulfate (Morphine Sulfate 2 Mg/Ml Cartridge) 2 mg IVPUSH Q4H PRN; Protocol PRN Reason: Pain, Severe (Pain Scale 7-10) Omeprazole (Omeprazole 20 Mg Capsule.) 20 mg PO DAILY@0630 [facility] Last Admin: 07/22/21 05:50 Dose: Not Given Documented by: TAMIA Non-Admin Reason: NPO Ondansetron HCl (Ondansetron Hcl 4 Mg/2 Ml Vial) 4 mg IVPUSH ONCE PRN PRN Reason: Nausea and Vomiting Oxycodone HCl (Oxycodone Hcl Immed Release 5 Mg Tablet) 5 mg PO Q6H PRN PRN Reason: Pain, Moderate (Pain Scale 4-6 Pharmacy Consult (Consult Rx Perform Med Rec) 1 each MISCELLANE ONCE PRN PRN Reason: Consult order Sodium Chloride (0.9 % Sodium Chloride Flush 3 Ml Syringe) 3 ml IVFLUSH QSHIFT [facility] Last Admin: 07/22/21 07:12 Dose: 3 ml Documented by: TATE Vitamin D (Cholecalciferol (Vitamin D3) 25 Mcg Tablet) 25 mcg PO DAILY [facility] Last Admin: 07/22/21 13:14 Dose: 25 mcg Documented by: TATE Labs CBC & Chem 7: 07/22/21 07:05 07/22/21 07:05 Labs: Laboratory Results - last 24 hr 07/21/21 07/21/21 07/22/21 16:14 20:37 07:05 MCV 89.0 MCH 29.7 MCHC 33.3 RDW 14.9 Plt Count 196 MPV 11.0 Immature Gran % (Auto) 0.8 H Neut % (Auto) 61.6 Lymph % (Auto) 25.8 [place] % (Auto) 9.3 Eos % (Auto) 1.8 Baso % (Auto) 0.7 Lymph # (Auto) 2.2 [place] # (Auto) 0.8 Eos # (Auto) 0.2 Baso # (Auto) 0.1 Abs Immat Gran (auto) 0.07 H Absolute Neuts (auto) 5.3 Absolute Nucleated RBC 0.000 Nucleated RBC % (auto) 0.0 Anion Gap Estim Creat Clear Calc Estimated GFR POC Glucose 312 H 348 H Random Glucose Calcium Total Bilirubin Direct Bilirubin AST ALT Alkaline Phosphatase Total Protein Albumin 07/22/21 07/22/21 07/22/21 07:05 07:29 13:05 MCV MCH MCHC RDW Plt Count MPV Immature Gran % (Auto) Neut % (Auto) Lymph % (Auto) [place] % (Auto) Eos % (Auto) Baso % (Auto) Lymph # (Auto) [place] # (Auto) Eos # (Auto) Baso # (Auto) Abs Immat Gran (auto) Absolute Neuts (auto) Absolute Nucleated RBC Nucleated RBC % (auto) Anion Gap 16 Estim Creat Clear Calc 91.1 Estimated GFR > 60 POC Glucose 272 H 354 H* Random Glucose 292 H Calcium 8.9 Total Bilirubin 1.4 H Direct Bilirubin 0.9 H AST 48 H ALT 66 H Alkaline Phosphatase 414 H Total Protein 6.1 L Albumin 3.4 L Assessment and Plan (1) Paroxysmal atrial fibrillation: Status: Acute (2) Diabetes: Status: Acute Assessment and Plan: 71-year-old male with a past medical history of hypertension, hyperlipidemia, diabetes, coronary artery disease status post CABG, obesity, KATINA on CPAP, history of Alzheimer's dementia presented to the hospital with a chief complaint of right upper quadrant abdominal pain/noted to have acute cholecystitis/gallstones/transaminitis.? Pain? improved with NPO status pain Atrial flutter question of whether this was new however on the during this admission he was in aflutter. According to cardiology notes the patient may vaguely remember having an arrhythmia and remembering the medication Coumadin Not currently on any anticoagulation and will need to be postoperatively. CHADS2 Vasc score 3, Has Bled score 2. will start AC when safe from surgical perspective Echo shows EF 40-45% with basal inferior and basal inferoseptal akinesis, no further workup at this time per cardiology Acute cholecystitis/gallstones s/p lap lis today, 07/22 Bacteremia. Clostridium perfringens Escherichia coli continue IV ceftriaxone/metronidazole ? ? Cholestatic LFTs stable Hypertension Continue losartan/metoprolol as per outpatient dosing CAD Aspirin on hold pending procedure.? Continue other therapies Type 2 diabetes requiring insulin Continue sliding scale continue Lantus GERD Continue PPI Mood continue cymbalta dementia continue aricept, namenda KATINA continue cpap DVT prophylaxis: SCD boots Code status: Full code Attending Dr. Up Quality Stroke Does the patient have a stroke diagnosis?: No VTE Prior VTE?: No VTE Risk Level:: Medical - moderate - high VTE Device Contraindication: N/A - Device Ordered VTE Drug Contraindication: Treatment Not Indicated
--- NOTE | 2021-07-22 14:19 | PM.EVENT ---
Event Note Date of Service: 07/22/21 Event Note: Underwent laparoscopic cholecystectomy earlier, uneventful Seen and examined postop Looks comfortable good pain control Stable vital signs Dressings dry Continue pain management Clear liquids, advance as tolerated Daughter in the room - aware of plan
[2021-07-22] MEDS: oxyCODONE HCl Immed Release 5 MG TABLET PO ×2 (16:14→21:24)
[2021-07-22] MEDS: metroNIDAZOLE 500 MG TABLET PO ×2 (16:15→23:33)
[2021-07-22 16:45] LABS: Glucose, Whole Blood 387 mg/dL (60-115)
--- NOTE | 2021-07-22 19:59 | PC.NURSE ---
In afternoon pt agitated, restless, kicking and scratching staff. Pulled delarosa cath out enough that tip of penis bleeding. Contacted MD- ok to remove Delarosa as pt keeps fighting staff to yank it out. Pt unable to re-direct. Delarosa removed at 1700, informed oncoming RN still needs to void. Rounder outside pt room in place. Pt doesnt keep telemonitor on due to kicking and fighting with staff. Will cont to re-orient pt, high fall risk measures remain in place
[2021-07-22] MEDS: Docusate Sodium 100 MG CAPSULE PO (20:02)
[2021-07-22] MEDS: Morphine Sulfate 4 MG/ML CARTRIDGE IVPUSH ×2 (20:03→23:36)
[2021-07-22 20:42] LABS: Glucose, Whole Blood 311 mg/dL (60-115)
[2021-07-22] MEDS: Insulin Glargine,Hum.rec.anlog 100 UNIT/ML 10 ML VIAL 30 UNIT SUBCUT (21:25)
[2021-07-23] VITALS (8 sets, daily range): BP systolic 126–162; BP diastolic 62–91; PULSE 63–73; RESP 18–22; TEMP 36.1–37.1; O2SAT 92–94
[2021-07-23] MEDS: HYDROmorphone HCl 1 MG/ML SYRINGE IVPUSH (02:09)
[2021-07-23] MEDS: cefTRIAXone sodium 1 GM in 0.9 % Sodium Chloride 50 ML IV (05:14)
[2021-07-23] MEDS: oxyCODONE HCl Immed Release 5 MG TABLET PO (05:17)
[2021-07-23] MEDS: Omeprazole 20 MG CAPSULE.DR PO (05:17)
[2021-07-23] MEDS: Morphine Sulfate 4 MG/ML CARTRIDGE IVPUSH ×2 (05:53→11:10)
[2021-07-23 07:02] LABS: MANUAL DIFF FLAG NO
[2021-07-23 07:15] LABS: Glucose, Whole Blood 251 mg/dL (60-115)
[2021-07-23 07:15] LABS: Basophils Absolute Auto 0.1 X10*3/uL (0.0-0.2); Basophils Percent Auto 0.3 % (0-2); Eosinophils Absolute Auto 0.1 X10*3/uL (0.0-0.4); Eosinophils Percent Auto 0.6 % (0-4); Hematocrit 43.4 % (42.0-52.0); Hemoglobin 13.9 g/dl (14.0-18.0); Imm Gran Pct Auto 0.5 % (0.0-0.4); Lymphocytes Absolute Auto 1.5 X10*3/uL (1.2-4.9); Lymphocytes Percent Auto 7.9 % (20-40); Mean Corpuscular Volume 90.6 fL (80.0-98.0); Mean Platelet Volume 11.5 fL (9.4-12.4); Monocytes Absolute Auto 1.3 X10*3/uL (0.1-1.2); Monocytes Percent Auto 6.8 % (2-11); Neutrophils Absolute Auto 15.6 x10*3/uL (2.0-8.3); Neutrophils Percent Auto 83.9 % (45-73); Platelet Count 223 X10*3/uL (160-400); Red Blood Count 4.79 X10*6/uL (4.60-5.80); Red Cell Distribution Width 15.2 % (11.0-16.0); White Blood Count 18.7 X10*3/uL (4.8-10.8)
[2021-07-23 07:38] LABS: Anion Gap 16 (12-20); Blood Urea Nitrogen 11 mg/dL (9-16); Calcium 8.5 mg/dL (8.4-10.2); Carbon Dioxide 22 mmol/L (22-29); Chloride 100 mmol/L (96-108); Estimated Glomerular Filt Rate > 60; Glucose Random 250 mg/dL (60-115); Potassium 4.3 mmol/L (3.3-5.1); Sodium 134 mmol/L (135-145)
[2021-07-23] MEDS: Insulin Lispro 100 UNIT/ML 3 ML VIAL SUBCUT ×4 (07:54→19:59)
[2021-07-23] MEDS: 0.9 % Sodium Chloride Flush 3 ML SYRINGE IVFLUSH ×3 (07:58→19:59)
[2021-07-23] MEDS: DULoxetine HCl 60 MG CAPSULE.DR PO ×2 (08:02→21:33)
[2021-07-23] MEDS: Metoprolol Succinate ER 50 MG TAB.ER.24H PO (08:02)
[2021-07-23] MEDS: Cyanocobalamin (Vitamin B-12) 1,000 MCG TABLET 1000 MCG PO (08:02)
[2021-07-23] MEDS: Cholecalciferol (Vitamin D3) 25 MCG TABLET PO (08:02)
[2021-07-23] MEDS: metroNIDAZOLE 500 MG TABLET PO ×3 (08:02→23:37)
[2021-07-23] MEDS: Ascorbic Acid 250 MG TABLET PO (08:02)
[2021-07-23] MEDS: Memantine HCl 10 MG TABLET PO ×2 (08:02→19:57)
[2021-07-23] MEDS: Losartan Potassium 50 MG TABLET PO (08:02)
[2021-07-23] MEDS: Donepezil HCl 10 MG TABLET PO (08:03)
[2021-07-23 08:15] LABS: Alanine Aminotransferase 71 U/L (0-40); Albumin Level 3.2 g/dL (3.5-5.0); Alkaline Phosphatase 384 U/L (39-117); Aspartate Amino Transferase 62 U/L (5-37); Bilirubin Total 1.6 mg/dL (0.0-1.0); Total Protein 5.9 g/dL (6.5-8.0)
--- NOTE | 2021-07-23 08:34 | PM.PNGS ---
Subjective Subjective Date of Service: 07/23/21 <Shilpa Figueroa PA-C - Last Filed: 07/23/21 13:24> 07/23/21 <Karel Padilla MD - Last Filed: 07/23/21 13:40> Interval history: Feels ok. Abdomen is very sore at incision sites and medication not relieving much. Tolerating diet, denies nausea. Using IS. <Shilpa Figueroa PA-C - Last Filed: 07/23/21 13:24> Physical Exam Vital Signs: Vital Signs: Last Vital Signs Temp 98.6 F 07/23/21 08:00 Pulse 67 07/23/21 08:00 Resp 20 07/23/21 08:00 BP 144/74 H 07/23/21 08:00 Pulse Ox 92 07/23/21 08:00 Oxygen Flow Rate 2 07/22/21 11:56 BMI result Body Mass Index 36.6 <Shilpa Figueroa PA-C - Last Filed: 07/23/21 13:24> Const: General: comfortable, no acute distress and alert <Shilpa Figueroa PA-C - Last Filed: 07/23/21 13:24> Resp: Effort & Inspection: normal respiratory effort <Shilpa Figueroa PA-C - Last Filed: 07/23/21 13:24> Cardio: Rate: regular rate <Shilpa Figueroa PA-C - Last Filed: 07/23/21 13:24> GI: Inspection: Yes distended (softly) and Yes incision (dressings c/d/i) <Shilpa Figueroa PA-C - Last Filed: 07/23/21 13:24> Palpation (GI): Soft to palpation, Tenderness to palpation present (GI) (incisional) and no guarding <Shilpa Figueroa PA-C - Last Filed: 07/23/21 13:24> Skin: General skin exam: no rashes or lesions noted <Shilpa Figueroa PA-C - Last Filed: 07/23/21 13:24> Extrem: General: Yes no clubbing, cyanosis or edema <Shilpa Figueroa PA-C - Last Filed: 07/23/21 13:24> Objective Data Active Medications Ascorbic Acid (Ascorbic Acid 250 Mg Tablet) 250 mg PO DAILY [facility] Last Admin: 07/23/21 08:02 Dose: 250 mg Documented by: AGUSTIN Calcium Carbonate (Calcium Carbonate 500 Mg Tablet) 1,000 mg PO BID [facility] Last Admin: 07/23/21 08:03 Dose: 1,000 mg Documented by: AGUSTIN Cyanocobalamin (Cyanocobalamin (Vitamin B-12) 1,000 Mcg Tablet) 1,000 mcg PO DAILY [facility] Last Admin: 07/23/21 08:02 Dose: 1,000 mcg Documented by: AGUSTIN Dextrose (Dextrose 50 % 25 Gm/50 Ml Vial) 25 gm IVPUSH Q15M PRN; Protocol PRN Reason: per Hypoglycemia Standing Ord. Docusate Sodium (Docusate Sodium 100 Mg Capsule) 100 mg PO BEDTIME [facility] Last Admin: 07/22/21 20:02 Dose: 100 mg Documented by: LUIS Donepezil HCl (Donepezil Hcl 10 Mg Tablet) 10 mg PO DAILY [facility] Last Admin: 07/23/21 08:03 Dose: 10 mg Documented by: AGUSTIN Duloxetine HCl (Duloxetine Hcl 60 Mg Capsule.Dr) 60 mg PO BID [facility] Last Admin: 07/23/21 08:02 Dose: 60 mg Documented by: AGUSTIN Glucose (Glucose Gel 15 Gm Gel..Gram.) 15 gm PO Q15M PRN; Protocol PRN Reason: per Hypoglycemia Standing Ord. Ceftriaxone Sodium 1 gm/ (Sodium Chloride) 50 mls @ 100 mls/hr IV Q24H [facility] Last Infusion: 07/23/21 05:51 Dose: 0 mls/hr Documented by: LUIS Insulin Glargine (Insulin Glargine,Hum.Rec.Anlog 100 Unit/Ml 10 Ml Vial) 30 unit SUBCUT BEDTIME [facility] Last Admin: 07/22/21 21:25 Dose: 30 unit Documented by: LUIS Insulin Human Lispro (Insulin Lispro 100 Unit/Ml 3 Ml Vial) 0.1 - 10 unit SUBCUT QIDACHS [facility]; Protocol Last Admin: 07/23/21 07:54 Dose: 4 unit Documented by: AGUSTIN Losartan Potassium (Losartan Potassium 50 Mg Tablet) 50 mg PO DAILY [facility]; Protocol Last Admin: 07/23/21 08:02 Dose: 50 mg Documented by: AGUSTIN Melatonin (Melatonin 3 Mg Tablet) 6 mg PO BEDTIME PRN PRN Reason: Insomnia Memantine (Memantine Hcl 10 Mg Tablet) 10 mg PO BID [facility] Last Admin: 07/23/21 08:02 Dose: 10 mg Documented by: AGUSTIN Metoprolol Succinate (Metoprolol Succinate Er 50 Mg Tab.Er.24h) 50 mg PO DAILY [facility]; Protocol Last Admin: 07/23/21 08:02 Dose: 50 mg Documented by: AGUSTIN Metronidazole (Metronidazole 500 Mg Tablet) 500 mg PO Q8H [facility] Last Admin: 07/23/21 08:02 Dose: 500 mg Documented by: AGUSTIN Morphine Sulfate (Morphine Sulfate 4 Mg/Ml Cartridge) 4 mg IVPUSH Q4H PRN; Protocol PRN Reason: Pain, Severe (Pain Scale 7-10) Last Admin: 07/23/21 05:53 Dose: 4 mg Documented by: LUIS Omeprazole (Omeprazole 20 Mg Capsule.Dr) 20 mg PO DAILY@0630 [facility] Last Admin: 07/23/21 05:17 Dose: 20 mg Documented by: LUIS Ondansetron HCl (Ondansetron Hcl 4 Mg/2 Ml Vial) 4 mg IVPUSH ONCE PRN PRN Reason: Nausea and Vomiting Oxycodone HCl (Oxycodone Hcl Immed Release 5 Mg Tablet) 10 mg PO Q4H PRN PRN Reason: Pain, Severe (Pain Scale 7-10) Oxycodone HCl (Oxycodone Hcl Immed Release 5 Mg Tablet) 5 mg PO Q4H PRN PRN Reason: Pain, Moderate (Pain Scale 4-6 Pharmacy Consult (Consult Rx Perform Med Rec) 1 each MISCELLANE ONCE PRN PRN Reason: Consult order Polyethylene Glycol (Polyethylene Glycol 3350 17 Gm Powd.Pack) 17 gm PO DAILY PRN PRN Reason: Constipation Sodium Chloride (0.9 % Sodium Chloride Flush 3 Ml Syringe) 3 ml IVFLUSH QSHIFT [facility] Last Admin: 07/23/21 07:58 Dose: 3 ml Documented by: AGUSTIN Vitamin D (Cholecalciferol (Vitamin D3) 25 Mcg Tablet) 25 mcg PO DAILY [facility] Last Admin: 07/23/21 08:02 Dose: 25 mcg Documented by: AGUSTIN <Shilpa Figueroa PA-C - Last Filed: 07/23/21 13:24> Labs CBC & Chem 7: : 07/23/21 06:40 07/23/21 06:40 <Shilpa Figueroa PA-C - Last Filed: 07/23/21 13:24> Labs: Laboratory Results - last 24 hr 07/22/21 07/22/21 07/22/21 13:05 16:20 20:38 MCV MCH MCHC RDW Plt Count MPV Immature Gran % (Auto) Neut % (Auto) Lymph % (Auto) [place] % (Auto) Eos % (Auto) Baso % (Auto) Lymph # (Auto) [place] # (Auto) Eos # (Auto) Baso # (Auto) Abs Immat Gran (auto) Absolute Neuts (auto) Absolute Nucleated RBC Nucleated RBC % (auto) Anion Gap Estim Creat Clear Calc Estimated GFR POC Glucose 354 H* 387 H* 311 H Random Glucose Calcium Total Bilirubin Direct Bilirubin AST ALT Alkaline Phosphatase Total Protein Albumin 07/23/21 07/23/21 07/23/21 06:40 06:40 07:08 MCV 90.6 MCH 29.0 MCHC 32.0 RDW 15.2 Plt Count 223 MPV 11.5 Immature Gran % (Auto) 0.5 H Neut % (Auto) 83.9 H Lymph % (Auto) 7.9 L [place] % (Auto) 6.8 Eos % (Auto) 0.6 Baso % (Auto) 0.3 Lymph # (Auto) 1.5 [place] # (Auto) 1.3 H Eos # (Auto) 0.1 Baso # (Auto) 0.1 Abs Immat Gran (auto) 0.10 H Absolute Neuts (auto) 15.6 H Absolute Nucleated RBC 0.000 Nucleated RBC % (auto) 0.0 Anion Gap 16 Estim Creat Clear Calc 89.0 Estimated GFR > 60 POC Glucose 251 H Random Glucose 250 H Calcium 8.5 Total Bilirubin 1.6 H Direct Bilirubin 1.0 H AST 62 H ALT 71 H Alkaline Phosphatase 384 H Total Protein 5.9 L Albumin 3.2 L <Shilpa Figueroa PA-C - Last Filed: 07/23/21 13:24> Procedures Date of Service Date of Service: 07/23/21 <Shilpa Figueroa PA-C - Last Filed: 07/23/21 13:24> Progress Note: A&P Assessment and plan (1) Acute calculous cholecystitis: Status: Acute <Shilpa Figueroa PA-C - Last Filed: 07/23/21 13:24> Assessment and Plan: complaints of pain on incisions otherwise tolerating oral intake abdomen soft encouraged to ambulate get out of bed more incentive spirometry pain management seen and examined - agree with GUERA Figueroa daughter Ene updated <Karel Padilla MD - Last Filed: 07/23/21 13:40> (2) Elevated liver enzymes: Status: Acute <Shilpa Figueroa PA-C - Last Filed: 07/23/21 13:24> (3) S/P laparoscopic cholecystectomy: Status: Acute <Shilpa Figueroa PA-C - Last Filed: 07/23/21 13:24> Assessment and Plan: 71 year old male admitted with RUQ pain found to have acute cholecystitis, elevated LFTs suggestive of passed CBD stone. He is now POD #1 s/p lap lis. He is doing fairly well post op but having difficulty with pain control. VSS. Abd exam benign with appropriate post op tenderness, dressings c/d/i. Will add PO oxycodone 10mg PRN. Encouraged OOB/ambulation and IS use. AM labs reviewed, leukocytosis likely reactive. Can begin anticoagulation for PAF. <Shilpa Figueroa PA-C - Last Filed: 07/23/21 13:24> Fall Risk Details Current Medications: Current Medications Ascorbic Acid (Ascorbic Acid 250 Mg Tablet) 250 mg PO DAILY [facility] Last Admin: 07/23/21 08:02 Dose: 250 mg Documented by: Calcium Carbonate (Calcium Carbonate 500 Mg Tablet) 1,000 mg PO BID [facility] Last Admin: 07/23/21 08:03 Dose: 1,000 mg Documented by: Cyanocobalamin (Cyanocobalamin (Vitamin B-12) 1,000 Mcg Tablet) 1,000 mcg PO DAILY [facility] Last Admin: 07/23/21 08:02 Dose: 1,000 mcg Documented by: Dextrose (Dextrose 50 % 25 Gm/50 Ml Vial) 25 gm IVPUSH Q15M PRN; Protocol PRN Reason: per Hypoglycemia Standing Ord. Docusate Sodium (Docusate Sodium 100 Mg Capsule) 100 mg PO BEDTIME [facility] Last Admin: 07/22/21 20:02 Dose: 100 mg Documented by: Donepezil HCl (Donepezil Hcl 10 Mg Tablet) 10 mg PO DAILY [facility] Last Admin: 07/23/21 08:03 Dose: 10 mg Documented by: Duloxetine HCl (Duloxetine Hcl 60 Mg Capsule.Dr) 60 mg PO BID [facility] Last Admin: 07/23/21 08:02 Dose: 60 mg Documented by: Glucose (Glucose Gel 15 Gm Gel..Gram.) 15 gm PO Q15M PRN; Protocol PRN Reason: per Hypoglycemia Standing Ord. Ceftriaxone Sodium 1 gm/ (Sodium Chloride) 50 mls @ 100 mls/hr IV Q24H [facility] Last Infusion: 07/23/21 05:51 Dose: Infused Documented by: Insulin Glargine (Insulin Glargine,Hum.Rec.Anlog 100 Unit/Ml 10 Ml Vial) 30 unit SUBCUT BEDTIME [facility] Last Admin: 07/22/21 21:25 Dose: 30 unit Documented by: Insulin Human Lispro (Insulin Lispro 100 Unit/Ml 3 Ml Vial) 0.1 - 10 unit SUBCUT QIDACHS [facility]; Protocol Last Admin: 07/23/21 07:54 Dose: 4 unit Documented by: Losartan Potassium (Losartan Potassium 50 Mg Tablet) 50 mg PO DAILY [facility]; Protocol Last Admin: 07/23/21 08:02 Dose: 50 mg Documented by: Melatonin (Melatonin 3 Mg Tablet) 6 mg PO BEDTIME PRN PRN Reason: Insomnia Memantine (Memantine Hcl 10 Mg Tablet) 10 mg PO BID [facility] Last Admin: 07/23/21 08:02 Dose: 10 mg Documented by: Metoprolol Succinate (Metoprolol Succinate Er 50 Mg Tab.Er.24h) 50 mg PO DAILY [facility]; Protocol Last Admin: 07/23/21 08:02 Dose: 50 mg Documented by: Metronidazole (Metronidazole 500 Mg Tablet) 500 mg PO Q8H [facility] Last Admin: 07/23/21 08:02 Dose: 500 mg Documented by: Morphine Sulfate (Morphine Sulfate 4 Mg/Ml Cartridge) 4 mg IVPUSH Q4H PRN; Protocol PRN Reason: Pain, Severe (Pain Scale 7-10) Last Admin: 07/23/21 05:53 Dose: 4 mg Documented by: Omeprazole (Omeprazole 20 Mg Capsule.) 20 mg PO DAILY@0630 [facility] Last Admin: 07/23/21 05:17 Dose: 20 mg Documented by: Ondansetron HCl (Ondansetron Hcl 4 Mg/2 Ml Vial) 4 mg IVPUSH ONCE PRN PRN Reason: Nausea and Vomiting Oxycodone HCl (Oxycodone Hcl Immed Release 5 Mg Tablet) 10 mg PO Q4H PRN PRN Reason: Pain, Severe (Pain Scale 7-10) Oxycodone HCl (Oxycodone Hcl Immed Release 5 Mg Tablet) 5 mg PO Q4H PRN PRN Reason: Pain, Moderate (Pain Scale 4-6 Pharmacy Consult (Consult Rx Perform Med Rec) 1 each MISCELLANE ONCE PRN PRN Reason: Consult order Polyethylene Glycol (Polyethylene Glycol 3350 17 Gm Powd.Pack) 17 gm PO DAILY PRN PRN Reason: Constipation Sodium Chloride (0.9 % Sodium Chloride Flush 3 Ml Syringe) 3 ml IVFLUSH QSHIFT [facility] Last Admin: 07/23/21 07:58 Dose: 3 ml Documented by: Vitamin D (Cholecalciferol (Vitamin D3) 25 Mcg Tablet) 25 mcg PO DAILY [facility] Last Admin: 07/23/21 08:02 Dose: 25 mcg Documented by: <Shilpa Figueroa PA-C - Last Filed: 07/23/21 13:24> Time Spent With Patient Time: Total time spent is greater than 50% in coordination of care (as documented) at patient's floor/unit and/or counseling patient: <Shilpa Figueroa PA-C - Last Filed: 07/23/21 13:24> Time with patient: 15 - 24 minutes <Shilpa Figueroa PA-C - Last Filed: 07/23/21 13:24> Quality Stroke Does the patient have a stroke diagnosis?: No <Shilpa Figueroa PA-C - Last Filed: 07/23/21 13:24> VTE Prior VTE?: No <Shilpa Figueroa PA-C - Last Filed: 07/23/21 13:24> VTE Risk Level:: Medical - moderate - high <ALTAGRACIA Gibson Last Filed: 07/23/21 13:24> VTE Device Contraindication: N/A - Device Ordered <Shilpa Figueroa PA-C - Last Filed: 07/23/21 13:24> VTE Drug Contraindication: Treatment Not Indicated <Shilpa Figueroa PA-C - Last Filed: 07/23/21 13:24>
[2021-07-23] MEDS: oxyCODONE HCl Immed Release 5 MG TABLET 10 MG PO ×2 (08:37→13:21)
--- NOTE | 2021-07-23 09:32 | MHC.CM.PN ---
Addendum entered by Laura Henao 07/23/21 11:05: Per rounds, december dc 1-3days. Original Note: Male 71 S/P Cholecystectomy. C/O post op gas/pain. Frank breakfast. Dtr at bedside. 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 A referral for home care made at pts request, [place]. Patients dtr will transport home.
--- NOTE | 2021-07-23 10:49 | P.PNCA_ITS ---
Subjective Subjective Date of Service: 07/23/21 Interval history: Had surgery for gall bladder yesterday. No cardiac symptoms like chest pain. Feels OK. Review of Systems Review of Systems Yes all other systems are reviewed and are negative Cardiovascular: Reports as per HPI, Reports no additional cardiovascular complaints, Denies acrocyanosis, Denies cool extremities, Denies painful fingertips, Denies chest pain, Denies chest pain at rest, Denies diaphoresis, Denies syncope, Denies irregular heart rhythm, Denies claudication, Denies leg edema, Denies lightheadedness, Denies palpitations and Denies dyspnea Respiratory: Denies dyspnea Denies syncope Endocrine: Denies palpitations Physical Exam Vital Signs: Last Vital Signs Temp 98.6 F 07/23/21 08:00 Pulse 67 07/23/21 08:00 Resp 20 07/23/21 08:00 BP 144/74 H 07/23/21 08:00 Pulse Ox 92 07/23/21 08:00 Oxygen Flow Rate 2 07/22/21 11:56 BMI result Body Mass Index 36.6 Const General: cooperative and no acute distress [facility] Other: Unremarkable Neck Neck: Yes normal visual inspection Chest Chest palpation & inspection: normal inspection of the chest Resp Auscultation: clear to auscultation bilaterally, no crackles and no wheezes Cardio Jugular venous distension: no JVD Palpation: normal PMI Heart sounds: S1 normal heart sound present, S2 normal heart sound present, no gallops, no murmurs and no rubs GI Palpation (GI): Soft to palpation Back/Spine/Pelvis Other: unremarkable Skin General skin exam: no rashes or lesions noted Neuro Cranial nerves: Yes Other cranial nerve findings present Extrem General: Yes no clubbing, cyanosis or edema Psych Mental Status: other Objective Labs and Meds Result diagrams: 07/23/21 06:40 07/23/21 06:40 Lab results: Laboratory Results - last 24 hr 07/22/21 07/22/21 07/22/21 13:05 16:20 20:38 WBC RBC Hgb Hct MCV MCH MCHC RDW Plt Count MPV Immature Gran % (Auto) Neut % (Auto) Lymph % (Auto) [place] % (Auto) Eos % (Auto) Baso % (Auto) Lymph # (Auto) [place] # (Auto) Eos # (Auto) Baso # (Auto) Abs Immat Gran (auto) Absolute Neuts (auto) Absolute Nucleated RBC Nucleated RBC % (auto) Sodium Potassium Chloride Carbon Dioxide Anion Gap BUN Creatinine Estim Creat Clear Calc Estimated GFR POC Glucose 354 H* 387 H* 311 H Random Glucose Calcium Total Bilirubin Direct Bilirubin AST ALT Alkaline Phosphatase Total Protein Albumin 07/23/21 07/23/21 07/23/21 06:40 06:40 07:08 WBC 18.7 H RBC 4.79 Hgb 13.9 L Hct 43.4 MCV 90.6 MCH 29.0 MCHC 32.0 RDW 15.2 Plt Count 223 MPV 11.5 Immature Gran % (Auto) 0.5 H Neut % (Auto) 83.9 H Lymph % (Auto) 7.9 L [place] % (Auto) 6.8 Eos % (Auto) 0.6 Baso % (Auto) 0.3 Lymph # (Auto) 1.5 [place] # (Auto) 1.3 H Eos # (Auto) 0.1 Baso # (Auto) 0.1 Abs Immat Gran (auto) 0.10 H Absolute Neuts (auto) 15.6 H Absolute Nucleated RBC 0.000 Nucleated RBC % (auto) 0.0 Sodium 134 L Potassium 4.3 Chloride 100 Carbon Dioxide 22 Anion Gap 16 BUN 11 Creatinine 0.87 Estim Creat Clear Calc 89.0 Estimated GFR > 60 POC Glucose 251 H Random Glucose 250 H Calcium 8.5 Total Bilirubin 1.6 H Direct Bilirubin 1.0 H AST 62 H ALT 71 H Alkaline Phosphatase 384 H Total Protein 5.9 L Albumin 3.2 L Progress Note: A&P Assessment and plan (1) Paroxysmal atrial flutter: Status: Acute (2) Paroxysmal atrial fibrillation: Status: Acute (3) Atherosclerotic cardiovascular disease: Status: Acute Assessment and Plan: High sensitivity troponin from earlier in the admission was 9.5. As he does not feel the palpitations, he could have been having atrial arrhythmias even prior to hospitalization. Echocardiogram with LVEF 40-45% and basal inferior/ inferoseptal akinesis. Overall, he seems to be okay from cardiac without any acute symptoms. With ready from surgical standpoint, may start Eliquis. Otherwise follow up with his own solar designer from [facility]. Discussed with daughter at the bedside. Fall Risk Details Current Medications: Current Medications Ascorbic Acid (Ascorbic Acid 250 Mg Tablet) 250 mg PO DAILY [facility] Last Admin: 07/23/21 08:02 Dose: 250 mg Documented by: Calcium Carbonate (Calcium Carbonate 500 Mg Tablet) 1,000 mg PO BID [facility] Last Admin: 07/23/21 08:03 Dose: 1,000 mg Documented by: Cyanocobalamin (Cyanocobalamin (Vitamin B-12) 1,000 Mcg Tablet) 1,000 mcg PO DAILY [facility] Last Admin: 07/23/21 08:02 Dose: 1,000 mcg Documented by: Dextrose (Dextrose 50 % 25 Gm/50 Ml Vial) 25 gm IVPUSH Q15M PRN; Protocol PRN Reason: per Hypoglycemia Standing Ord. Docusate Sodium (Docusate Sodium 100 Mg Capsule) 100 mg PO BEDTIME [facility] Last Admin: 07/22/21 20:02 Dose: 100 mg Documented by: Donepezil HCl (Donepezil Hcl 10 Mg Tablet) 10 mg PO DAILY [facility] Last Admin: 07/23/21 08:03 Dose: 10 mg Documented by: Duloxetine HCl (Duloxetine Hcl 60 Mg Capsule.Dr) 60 mg PO BID [facility] Last Admin: 07/23/21 08:02 Dose: 60 mg Documented by: Glucose (Glucose Gel 15 Gm Gel..Gram.) 15 gm PO Q15M PRN; Protocol PRN Reason: per Hypoglycemia Standing Ord. Ceftriaxone Sodium 1 gm/ (Sodium Chloride) 50 mls @ 100 mls/hr IV Q24H [facility] Last Infusion: 07/23/21 05:51 Dose: Infused Documented by: Insulin Glargine (Insulin Glargine,Hum.Rec.Anlog 100 Unit/Ml 10 Ml Vial) 30 unit SUBCUT BEDTIME [facility] Last Admin: 07/22/21 21:25 Dose: 30 unit Documented by: Insulin Human Lispro (Insulin Lispro 100 Unit/Ml 3 Ml Vial) 0.1 - 10 unit SUBCUT QIDACHS [facility]; Protocol Last Admin: 07/23/21 07:54 Dose: 4 unit Documented by: Losartan Potassium (Losartan Potassium 50 Mg Tablet) 50 mg PO DAILY [facility]; Protocol Last Admin: 07/23/21 08:02 Dose: 50 mg Documented by: Melatonin (Melatonin 3 Mg Tablet) 6 mg PO BEDTIME PRN PRN Reason: Insomnia Memantine (Memantine Hcl 10 Mg Tablet) 10 mg PO BID [facility] Last Admin: 07/23/21 08:02 Dose: 10 mg Documented by: Metoprolol Succinate (Metoprolol Succinate Er 50 Mg Tab.Er.24h) 50 mg PO DAILY [facility]; Protocol Last Admin: 07/23/21 08:02 Dose: 50 mg Documented by: Metronidazole (Metronidazole 500 Mg Tablet) 500 mg PO Q8H [facility] Last Admin: 07/23/21 08:02 Dose: 500 mg Documented by: Morphine Sulfate (Morphine Sulfate 4 Mg/Ml Cartridge) 4 mg IVPUSH Q4H PRN; Protocol PRN Reason: Pain, Severe (Pain Scale 7-10) Last Admin: 07/23/21 05:53 Dose: 4 mg Documented by: Omeprazole (Omeprazole 20 Mg Capsule.Dr) 20 mg PO DAILY@0630 [facility] Last Admin: 07/23/21 05:17 Dose: 20 mg Documented by: Ondansetron HCl (Ondansetron Hcl 4 Mg/2 Ml Vial) 4 mg IVPUSH ONCE PRN PRN Reason: Nausea and Vomiting Oxycodone HCl (Oxycodone Hcl Immed Release 5 Mg Tablet) 10 mg PO Q4H PRN PRN Reason: Pain, Severe (Pain Scale 7-10) Last Admin: 07/23/21 08:37 Dose: 10 mg Documented by: Oxycodone HCl (Oxycodone Hcl Immed Release 5 Mg Tablet) 5 mg PO Q4H PRN PRN Reason: Pain, Moderate (Pain Scale 4-6 Pharmacy Consult (Consult Rx Perform Med Rec) 1 each MISCELLANE ONCE PRN PRN Reason: Consult order Polyethylene Glycol (Polyethylene Glycol 3350 17 Gm Powd.Pack) 17 gm PO DAILY PRN PRN Reason: Constipation Sodium Chloride (0.9 % Sodium Chloride Flush 3 Ml Syringe) 3 ml IVFLUSH QSHIFT [facility] Last Admin: 07/23/21 07:58 Dose: 3 ml Documented by: Vitamin D (Cholecalciferol (Vitamin D3) 25 Mcg Tablet) 25 mcg PO DAILY [facility] Last Admin: 07/23/21 08:02 Dose: 25 mcg Documented by: Time Spent With Patient Time: Total time spent is greater than 50% in coordination of care (as documented) at patient's floor/unit and/or counseling patient: Time with patient: less than 15 minutes Progress Note: Quality Stroke Does the patient have a stroke diagnosis?: No Procedures Date of Service Date of Service: 07/23/21
[2021-07-23 11:12] LABS: Glucose, Whole Blood 344 mg/dL (60-115)
--- NOTE | 2021-07-23 14:10 | HO.POSTANES ---
Post Anesthesia Evaluation Post Anesthesia Evaluation Vital Signs: Vital Signs Temp Pulse Resp BP Pulse Ox 07/23/21 12:00 97.0 F 63 20 126/72 94 07/23/21 08:00 98.6 F 67 20 144/74 H 92 07/23/21 05:53 18 07/23/21 03:34 98.7 F 63 18 133/67 94 Anesthesia: General Endotracheal-GETA Mental Status: Awake Pain Control: Satisfactory Nausea/Vomiting: None Hydration: Adequate Anesthesia-Related Issues: No Anes. Related Issues
--- NOTE | 2021-07-23 14:34 | P.PNIM_ITS ---
Subjective Subjective Date of Service: 07/23/21 Interval History: Seen and examined this morning Follow-up for acute cholecystitis, atrial flutter No chest pain, shortness of breath, nausea, vomiting Complaining of abdominal pain Review of Systems Review of Systems: Yes all other systems are reviewed and are negative Constitutional Constitutional: Denies chills and Denies fever(s) Cardiovascular Cardiovascular: Denies chest pain Respiratory Respiratory: Denies cough Physical Exam Vital Signs: Vital Signs: Last Vital Signs Temp 97.0 F 07/23/21 12:00 Pulse 63 07/23/21 12:00 Resp 20 07/23/21 12:00 BP 126/72 07/23/21 12:00 Pulse Ox 94 07/23/21 12:00 Oxygen Flow Rate 2 07/22/21 11:56 BMI result Body Mass Index 36.6 Const: General: healthy appearing, awake and Physically active Nutritional Appearance: well nourished Orientation/consciousness: patient oriented x3 HENMT: Head: Yes normocephalic and Yes atraumatic Eyes: Sclerae: sclerae normal Resp: Other: small shallow breaths Effort & Inspection: no respiratory distress Auscultation: diminished lung sounds Cardio: Rate: regular rate Rhythm: regular rhythm GI: Other: generalized tenderness, softly distended Inspection: No distended Palpation (GI): Soft to palpation Neuro: General: patient oriented x3 Cranial nerves: Yes CN's II-XII intact bilaterally and Yes Bilaterally intact EOM present Extrem: Other: able to move all 4 extremities spontaneously Objective Data Active Medications Ascorbic Acid (Ascorbic Acid 250 Mg Tablet) 250 mg PO DAILY [facility] Last Admin: 07/23/21 08:02 Dose: 250 mg Documented by: AGUSTIN Calcium Carbonate (Calcium Carbonate 500 Mg Tablet) 1,000 mg PO BID [facility] Last Admin: 07/23/21 08:03 Dose: 1,000 mg Documented by: AGUSTIN Cyanocobalamin (Cyanocobalamin (Vitamin B-12) 1,000 Mcg Tablet) 1,000 mcg PO DAILY [facility] Last Admin: 07/23/21 08:02 Dose: 1,000 mcg Documented by: AGUSTIN Dextrose (Dextrose 50 % 25 Gm/50 Ml Vial) 25 gm IVPUSH Q15M PRN; Protocol PRN Reason: per Hypoglycemia Standing Ord. Docusate Sodium (Docusate Sodium 100 Mg Capsule) 100 mg PO BEDTIME [facility] Last Admin: 07/22/21 20:02 Dose: 100 mg Documented by: LUIS Donepezil HCl (Donepezil Hcl 10 Mg Tablet) 10 mg PO DAILY [facility] Last Admin: 07/23/21 08:03 Dose: 10 mg Documented by: AGUSTIN Duloxetine HCl (Duloxetine Hcl 60 Mg Capsule.Dr) 60 mg PO BID [facility] Last Admin: 07/23/21 08:02 Dose: 60 mg Documented by: AGUSTIN Glucose (Glucose Gel 15 Gm Gel..Gram.) 15 gm PO Q15M PRN; Protocol PRN Reason: per Hypoglycemia Standing Ord. Hydromorphone HCl (Hydromorphone Hcl 0.5 Mg/0.5 Ml Syringe) 0.5 mg IVPUSH Q4H PRN; Protocol PRN Reason: Pain, Severe (Pain Scale 7-10) Ceftriaxone Sodium 1 gm/ (Sodium Chloride) 50 mls @ 100 mls/hr IV Q24H [facility] Last Infusion: 07/23/21 05:51 Dose: 0 mls/hr Documented by: LUIS Insulin Glargine (Insulin Glargine,Hum.Rec.Anlog 100 Unit/Ml 10 Ml Vial) 30 unit SUBCUT BEDTIME [facility] Last Admin: 07/22/21 21:25 Dose: 30 unit Documented by: LUIS Insulin Human Lispro (Insulin Lispro 100 Unit/Ml 3 Ml Vial) 0.1 - 10 unit SUBCUT QIDACHS [facility]; Protocol Last Admin: 07/23/21 11:14 Dose: 8 unit Documented by: AGUSTIN Losartan Potassium (Losartan Potassium 50 Mg Tablet) 50 mg PO DAILY [facility]; Protocol Last Admin: 07/23/21 08:02 Dose: 50 mg Documented by: AGUSTIN Melatonin (Melatonin 3 Mg Tablet) 6 mg PO BEDTIME PRN PRN Reason: Insomnia Memantine (Memantine Hcl 10 Mg Tablet) 10 mg PO BID [facility] Last Admin: 07/23/21 08:02 Dose: 10 mg Documented by: AGUSTIN Metoprolol Succinate (Metoprolol Succinate Er 50 Mg Tab.Er.24h) 50 mg PO DAILY [facility]; Protocol Last Admin: 07/23/21 08:02 Dose: 50 mg Documented by: AGUSTIN Metronidazole (Metronidazole 500 Mg Tablet) 500 mg PO Q8H [facility] Last Admin: 07/23/21 08:02 Dose: 500 mg Documented by: AGUSTIN Omeprazole (Omeprazole 20 Mg Capsule.) 20 mg PO DAILY@0630 [facility] Last Admin: 07/23/21 05:17 Dose: 20 mg Documented by: LUIS Ondansetron HCl (Ondansetron Hcl 4 Mg/2 Ml Vial) 4 mg IVPUSH ONCE PRN PRN Reason: Nausea and Vomiting Oxycodone HCl (Oxycodone Hcl Immed Release 5 Mg Tablet) 10 mg PO Q4H PRN PRN Reason: Pain, Severe (Pain Scale 7-10) Last Admin: 07/23/21 13:21 Dose: 10 mg Documented by: AGUSTIN Oxycodone HCl (Oxycodone Hcl Immed Release 5 Mg Tablet) 5 mg PO Q4H PRN PRN Reason: Pain, Moderate (Pain Scale 4-6 Pharmacy Consult (Consult Rx Perform Med Rec) 1 each MISCELLANE ONCE PRN PRN Reason: Consult order Polyethylene Glycol (Polyethylene Glycol 3350 17 Gm Powd.Pack) 17 gm PO DAILY PRN PRN Reason: Constipation Sodium Chloride (0.9 % Sodium Chloride Flush 3 Ml Syringe) 3 ml IVFLUSH QSHIFT [facility] Last Admin: 07/23/21 07:58 Dose: 3 ml Documented by: AGUSTIN Vitamin D (Cholecalciferol (Vitamin D3) 25 Mcg Tablet) 25 mcg PO DAILY [facility] Last Admin: 07/23/21 08:02 Dose: 25 mcg Documented by: AGUSTIN Labs CBC & Chem 7: 07/23/21 06:40 07/23/21 06:40 Labs: Laboratory Results - last 24 hr 07/22/21 07/22/21 07/23/21 16:20 20:38 06:40 MCV 90.6 MCH 29.0 MCHC 32.0 RDW 15.2 Plt Count 223 MPV 11.5 Immature Gran % (Auto) 0.5 H Neut % (Auto) 83.9 H Lymph % (Auto) 7.9 L [place] % (Auto) 6.8 Eos % (Auto) 0.6 Baso % (Auto) 0.3 Lymph # (Auto) 1.5 [place] # (Auto) 1.3 H Eos # (Auto) 0.1 Baso # (Auto) 0.1 Abs Immat Gran (auto) 0.10 H Absolute Neuts (auto) 15.6 H Absolute Nucleated RBC 0.000 Nucleated RBC % (auto) 0.0 Anion Gap Estim Creat Clear Calc Estimated GFR POC Glucose 387 H* 311 H Random Glucose Calcium Total Bilirubin Direct Bilirubin AST ALT Alkaline Phosphatase Total Protein Albumin 07/23/21 07/23/21 07/23/21 06:40 07:08 10:59 MCV MCH MCHC RDW Plt Count MPV Immature Gran % (Auto) Neut % (Auto) Lymph % (Auto) [place] % (Auto) Eos % (Auto) Baso % (Auto) Lymph # (Auto) [place] # (Auto) Eos # (Auto) Baso # (Auto) Abs Immat Gran (auto) Absolute Neuts (auto) Absolute Nucleated RBC Nucleated RBC % (auto) Anion Gap 16 Estim Creat Clear Calc 89.0 Estimated GFR > 60 POC Glucose 251 H 344 H Random Glucose 250 H Calcium 8.5 Total Bilirubin 1.6 H Direct Bilirubin 1.0 H AST 62 H ALT 71 H Alkaline Phosphatase 384 H Total Protein 5.9 L Albumin 3.2 L Assessment and Plan (1) S/P laparoscopic cholecystectomy: Status: Acute (2) Paroxysmal atrial flutter: Status: Acute Assessment and Plan: 71-year-old male with a past medical history of hypertension, hyperlipidemia, diabetes, coronary artery disease status post CABG, KATINA on CPAP, history of Alzheimer's dementia presented to the hospital with a chief complaint of right upper quadrant abdominal pain/noted to have acute cholecystitis/gallstones/transaminitis.? Pain? improved with NPO status pain Atrial flutter unclear if new onset, may have been on coumadin in the past. not on AC on admission CHADS2 Vasc score 3, Has Bled score 2 will start AC with Eliquis Acute cholecystitis/gallstones s/p lap lis 07/22 surgery following pain management Bacteremia. Clostridium perfringens Escherichia coli continue IV ceftriaxone/metronidazole ? ? Cholestatic LFTs stable Hypertension Continue losartan/metoprolol CAD Aspirin on hold pending procedure.? Continue other therapies Echo shows EF 40-45% with basal inferior and basal inferoseptal akinesis, no further workup necessary Type 2 diabetes requiring insulin Continue sliding scale continue Lantus GERD Continue PPI Mood continue cymbalta dementia continue aricept, namenda KATINA continue cpap DVT prophylaxis: Eliquis Code status: Full code Attending Dr. pU Quality Stroke Does the patient have a stroke diagnosis?: No VTE Prior VTE?: No VTE Risk Level:: Medical - moderate - high VTE Device Contraindication: N/A - Device Ordered VTE Drug Contraindication: Treatment Not Indicated
[2021-07-23 16:38] LABS: Glucose, Whole Blood 300 mg/dL (60-115)
[2021-07-23] MEDS: HYDROmorphone HCl 0.5 MG/0.5 ML SYRINGE IVPUSH ×2 (19:57→23:37)
[2021-07-23] MEDS: Docusate Sodium 100 MG CAPSULE PO (19:58)
[2021-07-23] MEDS: Apixaban 5 MG TABLET PO (19:58)
[2021-07-23] MEDS: Sennosides 8.6 MG TABLET PO (19:58)
[2021-07-23] MEDS: Insulin Glargine,Hum.rec.anlog 100 UNIT/ML 10 ML VIAL 30 UNIT SUBCUT (19:58)
[2021-07-23 20:07] LABS: Glucose, Whole Blood 330 mg/dL (60-115)
[2021-07-24] VITALS (8 sets, daily range): BP systolic 124–167; BP diastolic 63–90; PULSE 61–75; RESP 18; TEMP 36.2–36.7; O2SAT 90–98
[2021-07-24] MEDS: oxyCODONE HCl Immed Release 5 MG TABLET 10 MG PO ×4 (04:37→20:52)
[2021-07-24] MEDS: cefTRIAXone sodium 1 GM in 0.9 % Sodium Chloride 50 ML IV (04:39)
[2021-07-24] MEDS: Omeprazole 20 MG CAPSULE.DR PO (04:39)
[2021-07-24 07:23] LABS: Glucose, Whole Blood 293 mg/dL (60-115)
[2021-07-24 07:30] LABS: Mean Corpuscular HGB Conc 31.8 g/dl (31.0-36.0); Mean Corpuscular Hemoglobin 28.7 pg (27.0-33.0); Mean Corpuscular Volume 90.2 fL (80.0-98.0); Mean Platelet Volume 11.3 fL (9.4-12.4); Platelet Count 230 X10*3/uL (160-400); Red Blood Count 4.88 X10*6/uL (4.60-5.80); Red Cell Distribution Width 14.9 % (11.0-16.0); White Blood Count 19.1 X10*3/uL (4.8-10.8)
[2021-07-24] MEDS: 0.9 % Sodium Chloride Flush 3 ML SYRINGE IVFLUSH ×3 (07:40→20:54)
[2021-07-24] MEDS: Insulin Lispro 100 UNIT/ML 3 ML VIAL SUBCUT ×7 (07:40→20:53)
[2021-07-24] MEDS: Metoprolol Succinate ER 50 MG TAB.ER.24H PO (07:41)
[2021-07-24] MEDS: Ascorbic Acid 250 MG TABLET PO (07:41)
[2021-07-24] MEDS: Cyanocobalamin (Vitamin B-12) 1,000 MCG TABLET 1000 MCG PO (07:41)
[2021-07-24] MEDS: metroNIDAZOLE 500 MG TABLET PO ×3 (07:41→23:40)
[2021-07-24] MEDS: DULoxetine HCl 60 MG CAPSULE.DR PO ×2 (07:41→20:51)
[2021-07-24] MEDS: Memantine HCl 10 MG TABLET PO ×2 (07:41→20:51)
[2021-07-24] MEDS: Cholecalciferol (Vitamin D3) 25 MCG TABLET PO (07:41)
[2021-07-24] MEDS: Apixaban 5 MG TABLET PO ×2 (07:41→21:29)
[2021-07-24] MEDS: Donepezil HCl 10 MG TABLET PO (07:42)
[2021-07-24] MEDS: Losartan Potassium 50 MG TABLET PO ×2 (07:42→09:06)
[2021-07-24 07:55] LABS: Anion Gap 12 (12-20); Blood Urea Nitrogen 12 mg/dL (9-16); Calcium 8.6 mg/dL (8.4-10.2); Carbon Dioxide 30 mmol/L (22-29); Chloride 96 mmol/L (96-108); Creatinine Clr Calc Pharmacy 82.4; Estimated Glomerular Filt Rate > 60; Glucose Random 275 mg/dL (60-115); Potassium 4.6 mmol/L (3.3-5.1); Sodium 133 mmol/L (135-145)
--- NOTE | 2021-07-24 09:56 | P.PNGS_ITS ---
Subjective Subjective Date of Service: 07/24/21 Interval history: says he feels better tolerating diet Physical Exam Vital Signs: Vital Signs: Last Vital Signs Temp 97.9 F 07/24/21 07:17 Pulse 67 07/24/21 09:06 Resp 18 07/24/21 07:17 BP 160/82 H 07/24/21 09:06 Pulse Ox 95 07/24/21 07:17 Oxygen Flow Rate 2 07/22/21 11:56 BMI result Body Mass Index 36.6 Const: General: no acute distress Eyes: Sclerae: sclerae normal Resp: Effort & Inspection: normal respiratory effort GI: Other: incisions clean and dry Palpation (GI): Soft to palpation Objective Data Active Medications Apixaban (Apixaban 5 Mg Tablet) 5 mg PO BID [facility] Last Admin: 07/24/21 07:41 Dose: 5 mg Documented by: FLORECITA Ascorbic Acid (Ascorbic Acid 250 Mg Tablet) 250 mg PO DAILY [facility] Last Admin: 07/24/21 07:41 Dose: 250 mg Documented by: FLORECITA Calcium Carbonate (Calcium Carbonate 500 Mg Tablet) 1,000 mg PO BID [facility] Last Admin: 07/24/21 07:41 Dose: 1,000 mg Documented by: FLORECITA Cyanocobalamin (Cyanocobalamin (Vitamin B-12) 1,000 Mcg Tablet) 1,000 mcg PO DAILY [facility] Last Admin: 07/24/21 07:41 Dose: 1,000 mcg Documented by: FLORECITA Dextrose (Dextrose 50 % 25 Gm/50 Ml Vial) 25 gm IVPUSH Q15M PRN; Protocol PRN Reason: per Hypoglycemia Standing Ord. Docusate Sodium (Docusate Sodium 100 Mg Capsule) 100 mg PO BEDTIME [facility] Last Admin: 07/23/21 19:58 Dose: 100 mg Documented by: CESAR Donepezil HCl (Donepezil Hcl 10 Mg Tablet) 10 mg PO DAILY [facility] Last Admin: 07/24/21 07:42 Dose: 10 mg Documented by: FLORECITA Duloxetine HCl (Duloxetine Hcl 60 Mg Capsule.Dr) 60 mg PO BID [facility] Last Admin: 07/24/21 07:41 Dose: 60 mg Documented by: FLORECITA Glucose (Glucose Gel 15 Gm Gel..Gram.) 15 gm PO Q15M PRN; Protocol PRN Reason: per Hypoglycemia Standing Ord. Hydromorphone HCl (Hydromorphone Hcl 0.5 Mg/0.5 Ml Syringe) 0.5 mg IVPUSH Q4H PRN; Protocol PRN Reason: Pain, Severe (Pain Scale 7-10) Last Admin: 07/23/21 23:37 Dose: 0.5 mg Documented by: CESAR Ceftriaxone Sodium 1 gm/ (Sodium Chloride) 50 mls @ 100 mls/hr IV Q24H [facility] Last Infusion: 07/24/21 05:20 Dose: 0 mls/hr Documented by: CESAR Insulin Glargine (Insulin Glargine,Hum.Rec.Anlog 100 Unit/Ml 10 Ml Vial) 30 unit SUBCUT BEDTIME [facility] Last Admin: 07/23/21 19:58 Dose: 30 unit Documented by: CESAR Insulin Human Lispro (Insulin Lispro 100 Unit/Ml 3 Ml Vial) 0.1 - 10 unit SUBCUT QIDACHS [facility]; Protocol Last Admin: 07/24/21 07:40 Dose: 6 unit Documented by: FLORECITA Insulin Human Lispro (Insulin Lispro 100 Unit/Ml 3 Ml Vial) 5 unit SUBCUT TIDWM [facility] Last Admin: 07/24/21 09:05 Dose: 5 unit Documented by: FLORECITA Losartan Potassium (Losartan Potassium 50 Mg Tablet) 100 mg PO DAILY [facility]; Protocol Last Admin: 07/24/21 09:03 Dose: Not Given Documented by: FLORECITA Non-Admin Reason: Previously Administered Melatonin (Melatonin 3 Mg Tablet) 6 mg PO BEDTIME PRN PRN Reason: Insomnia Memantine (Memantine Hcl 10 Mg Tablet) 10 mg PO BID [facility] Last Admin: 07/24/21 07:41 Dose: 10 mg Documented by: FLORECITA Metoprolol Succinate (Metoprolol Succinate Er 50 Mg Tab.Er.24h) 50 mg PO DAILY [facility]; Protocol Last Admin: 07/24/21 07:41 Dose: 50 mg Documented by: FLORECITA Metronidazole (Metronidazole 500 Mg Tablet) 500 mg PO Q8H [facility] Last Admin: 07/24/21 07:41 Dose: 500 mg Documented by: FLORECITA Omeprazole (Omeprazole 20 Mg Capsule.) 20 mg PO DAILY@0630 [facility] Last Admin: 07/24/21 04:39 Dose: 20 mg Documented by: CESAR Ondansetron HCl (Ondansetron Hcl 4 Mg/2 Ml Vial) 4 mg IVPUSH ONCE PRN PRN Reason: Nausea and Vomiting Oxycodone HCl (Oxycodone Hcl Immed Release 5 Mg Tablet) 10 mg PO Q4H PRN PRN Reason: Pain, Severe (Pain Scale 7-10) Last Admin: 07/24/21 09:06 Dose: 10 mg Documented by: FLORECITA Oxycodone HCl (Oxycodone Hcl Immed Release 5 Mg Tablet) 5 mg PO Q4H PRN PRN Reason: Pain, Moderate (Pain Scale 4-6 Pharmacy Consult (Consult Rx Perform Med Rec) 1 each MISCELLANE ONCE PRN PRN Reason: Consult order Polyethylene Glycol (Polyethylene Glycol 3350 17 Gm Powd.Pack) 17 gm PO DAILY PRN PRN Reason: Constipation Senna (Sennosides 8.6 Mg Tablet) 8.6 mg PO BEDTIME [facility] Last Admin: 07/23/21 19:58 Dose: 8.6 mg Documented by: CESAR Sodium Chloride (0.9 % Sodium Chloride Flush 3 Ml Syringe) 3 ml IVFLUSH QSHIFT [facility] Last Admin: 07/24/21 07:40 Dose: 3 ml Documented by: FLORECITA Vitamin D (Cholecalciferol (Vitamin D3) 25 Mcg Tablet) 25 mcg PO DAILY [facility] Last Admin: 07/24/21 07:41 Dose: 25 mcg Documented by: FLORECITA Labs CBC & Chem 7: 07/24/21 06:45 07/24/21 06:45 Labs: Laboratory Results - last 24 hr 07/23/21 07/23/21 07/23/21 10:59 16:09 19:47 MCV MCH MCHC RDW Plt Count MPV Absolute Nucleated RBC Nucleated RBC % (auto) Anion Gap Estim Creat Clear Calc Estimated GFR POC Glucose 344 H 300 H 330 H Random Glucose Calcium 07/24/21 07/24/21 07/24/21 06:45 06:45 07:19 MCV 90.2 MCH 28.7 MCHC 31.8 RDW 14.9 Plt Count 230 MPV 11.3 Absolute Nucleated RBC 0.000 Nucleated RBC % (auto) 0.0 Anion Gap 12 Estim Creat Clear Calc 82.4 Estimated GFR > 60 POC Glucose 293 H Random Glucose 275 H Calcium 8.6 Procedures Date of Service Date of Service: 07/24/21 Progress Note: A&P Assessment and plan (1) S/P laparoscopic cholecystectomy: Status: Acute Assessment and Plan: looks well abd soft WBC up, but no fever follow CBC diet as tolerated otherwise doing well postop Fall Risk Details Current Medications: Current Medications Apixaban (Apixaban 5 Mg Tablet) 5 mg PO BID [facility] Last Admin: 07/24/21 07:41 Dose: 5 mg Documented by: Ascorbic Acid (Ascorbic Acid 250 Mg Tablet) 250 mg PO DAILY [facility] Last Admin: 07/24/21 07:41 Dose: 250 mg Documented by: Calcium Carbonate (Calcium Carbonate 500 Mg Tablet) 1,000 mg PO BID [facility] Last Admin: 07/24/21 07:41 Dose: 1,000 mg Documented by: Cyanocobalamin (Cyanocobalamin (Vitamin B-12) 1,000 Mcg Tablet) 1,000 mcg PO DAILY [facility] Last Admin: 07/24/21 07:41 Dose: 1,000 mcg Documented by: Dextrose (Dextrose 50 % 25 Gm/50 Ml Vial) 25 gm IVPUSH Q15M PRN; Protocol PRN Reason: per Hypoglycemia Standing Ord. Docusate Sodium (Docusate Sodium 100 Mg Capsule) 100 mg PO BEDTIME [facility] Last Admin: 07/23/21 19:58 Dose: 100 mg Documented by: Donepezil HCl (Donepezil Hcl 10 Mg Tablet) 10 mg PO DAILY [facility] Last Admin: 07/24/21 07:42 Dose: 10 mg Documented by: Duloxetine HCl (Duloxetine Hcl 60 Mg Capsule.Dr) 60 mg PO BID [facility] Last Admin: 07/24/21 07:41 Dose: 60 mg Documented by: Glucose (Glucose Gel 15 Gm Gel..Gram.) 15 gm PO Q15M PRN; Protocol PRN Reason: per Hypoglycemia Standing Ord. Hydromorphone HCl (Hydromorphone Hcl 0.5 Mg/0.5 Ml Syringe) 0.5 mg IVPUSH Q4H PRN; Protocol PRN Reason: Pain, Severe (Pain Scale 7-10) Last Admin: 07/23/21 23:37 Dose: 0.5 mg Documented by: Ceftriaxone Sodium 1 gm/ (Sodium Chloride) 50 mls @ 100 mls/hr IV Q24H [facility] Last Infusion: 07/24/21 05:20 Dose: Infused Documented by: Insulin Glargine (Insulin Glargine,Hum.Rec.Anlog 100 Unit/Ml 10 Ml Vial) 30 unit SUBCUT BEDTIME [facility] Last Admin: 07/23/21 19:58 Dose: 30 unit Documented by: Insulin Human Lispro (Insulin Lispro 100 Unit/Ml 3 Ml Vial) 0.1 - 10 unit SUBCUT QIDACHS [facility]; Protocol Last Admin: 07/24/21 07:40 Dose: 6 unit Documented by: Insulin Human Lispro (Insulin Lispro 100 Unit/Ml 3 Ml Vial) 5 unit SUBCUT TIDWM [facility] Last Admin: 07/24/21 09:05 Dose: 5 unit Documented by: Losartan Potassium (Losartan Potassium 50 Mg Tablet) 100 mg PO DAILY [facility]; Protocol Last Admin: 07/24/21 09:03 Dose: Not Given Documented by: Melatonin (Melatonin 3 Mg Tablet) 6 mg PO BEDTIME PRN PRN Reason: Insomnia Memantine (Memantine Hcl 10 Mg Tablet) 10 mg PO BID [facility] Last Admin: 07/24/21 07:41 Dose: 10 mg Documented by: Metoprolol Succinate (Metoprolol Succinate Er 50 Mg Tab.Er.24h) 50 mg PO DAILY [facility]; Protocol Last Admin: 07/24/21 07:41 Dose: 50 mg Documented by: Metronidazole (Metronidazole 500 Mg Tablet) 500 mg PO Q8H [facility] Last Admin: 07/24/21 07:41 Dose: 500 mg Documented by: Omeprazole (Omeprazole 20 Mg Capsule.Dr) 20 mg PO DAILY@0630 [facility] Last Admin: 07/24/21 04:39 Dose: 20 mg Documented by: Ondansetron HCl (Ondansetron Hcl 4 Mg/2 Ml Vial) 4 mg IVPUSH ONCE PRN PRN Reason: Nausea and Vomiting Oxycodone HCl (Oxycodone Hcl Immed Release 5 Mg Tablet) 10 mg PO Q4H PRN PRN Reason: Pain, Severe (Pain Scale 7-10) Last Admin: 07/24/21 09:06 Dose: 10 mg Documented by: Oxycodone HCl (Oxycodone Hcl Immed Release 5 Mg Tablet) 5 mg PO Q4H PRN PRN Reason: Pain, Moderate (Pain Scale 4-6 Pharmacy Consult (Consult Rx Perform Med Rec) 1 each MISCELLANE ONCE PRN PRN Reason: Consult order Polyethylene Glycol (Polyethylene Glycol 3350 17 Gm Powd.Pack) 17 gm PO DAILY PRN PRN Reason: Constipation Senna (Sennosides 8.6 Mg Tablet) 8.6 mg PO BEDTIME [facility] Last Admin: 07/23/21 19:58 Dose: 8.6 mg Documented by: Sodium Chloride (0.9 % Sodium Chloride Flush 3 Ml Syringe) 3 ml IVFLUSH QSHIFT [facility] Last Admin: 07/24/21 07:40 Dose: 3 ml Documented by: Vitamin D (Cholecalciferol (Vitamin D3) 25 Mcg Tablet) 25 mcg PO DAILY [facility] Last Admin: 07/24/21 07:41 Dose: 25 mcg Documented by: Time Spent With Patient Time: Total time spent is greater than 50% in coordination of care (as documented) at patient's floor/unit and/or counseling patient: Time with patient: 15 - 24 minutes Quality Stroke Does the patient have a stroke diagnosis?: No VTE Prior VTE?: No VTE Risk Level:: Medical - moderate - high VTE Device Contraindication: N/A - Device Ordered VTE Drug Contraindication: Treatment Not Indicated
--- NOTE | 2021-07-24 10:40 | HO.PM.IMPN ---
Subjective Subjective Date of Service: 07/24/21 <GUERA Cartagena - Last Filed: 07/24/21 10:55> 07/25/21 <Mathieu Low MD - Last Filed: 07/25/21 08:18> Interval History: seen and examined this morning follow up for cholecystitis still complaining of abdominal pain tender with minimal palpation passing gas no other complaints <GUERA Cartagena - Last Filed: 07/24/21 10:55> Physical Exam Vital Signs: Vital Signs: Last Vital Signs Temp 97.9 F 07/24/21 07:17 Pulse 67 07/24/21 09:06 Resp 18 07/24/21 07:17 BP 160/82 H 07/24/21 09:06 Pulse Ox 95 07/24/21 07:17 Oxygen Flow Rate 2 07/22/21 11:56 BMI result Body Mass Index 36.6 <GUERA Cartagena - Last Filed: 07/24/21 10:55> Const: General: healthy appearing, awake and Physically active <GUERA Cartagena - Last Filed: 07/24/21 10:55> Nutritional Appearance: well nourished <GUERA Cartagena - Last Filed: 07/24/21 10:55> Orientation/consciousness: patient oriented x3 <GUERA Cartagena - Last Filed: 07/24/21 10:55> HENMT: Head: Yes normocephalic and Yes atraumatic <GUERA Cartagena - Last Filed: 07/24/21 10:55> Eyes: Sclerae: sclerae normal <GUERA Cartagena - Last Filed: 07/24/21 10:55> Resp: Other: small shallow breaths <GUERA Cartagena - Last Filed: 07/24/21 10:55> Effort & Inspection: no respiratory distress <GUERA Cartagena - Last Filed: 07/24/21 10:55> Auscultation: diminished lung sounds <GUERA Cartagena - Last Filed: 07/24/21 10:55> Cardio: Rate: regular rate <GUERA Cartagena - Last Filed: 07/24/21 10:55> Rhythm: regular rhythm <GUERA Cartagena - Last Filed: 07/24/21 10:55> GI: Other: generalized tenderness, softly distended <GUERA Cartagena Last Filed: 07/24/21 10:55> Inspection: No distended <GUERA Cartagena - Last Filed: 07/24/21 10:55> Palpation (GI): Soft to palpation <GUERA Cartagena - Last Filed: 07/24/21 10:55> Neuro: General: patient oriented x3 <GUERA Cartagena Last Filed: 07/24/21 10:55> Cranial nerves: Yes CN's II-XII intact bilaterally and Yes Bilaterally intact EOM present <GUERA Cartagena - Last Filed: 07/24/21 10:55> Extrem: Other: able to move all 4 extremities spontaneously <GUERA Cartagena Last Filed: 07/24/21 10:55> Objective Data Active Medications Apixaban (Apixaban 5 Mg Tablet) 5 mg PO BID [facility] Last Admin: 07/24/21 07:41 Dose: 5 mg Documented by: FLORECITA Ascorbic Acid (Ascorbic Acid 250 Mg Tablet) 250 mg PO DAILY [facility] Last Admin: 07/24/21 07:41 Dose: 250 mg Documented by: FLOERCITA Calcium Carbonate (Calcium Carbonate 500 Mg Tablet) 1,000 mg PO BID [facility] Last Admin: 07/24/21 07:41 Dose: 1,000 mg Documented by: FLORECITA Cyanocobalamin (Cyanocobalamin (Vitamin B-12) 1,000 Mcg Tablet) 1,000 mcg PO DAILY [facility] Last Admin: 07/24/21 07:41 Dose: 1,000 mcg Documented by: FLORECITA Dextrose (Dextrose 50 % 25 Gm/50 Ml Vial) 25 gm IVPUSH Q15M PRN; Protocol PRN Reason: per Hypoglycemia Standing Ord. Docusate Sodium (Docusate Sodium 100 Mg Capsule) 100 mg PO BEDTIME [facility] Last Admin: 07/23/21 19:58 Dose: 100 mg Documented by: CESAR Donepezil HCl (Donepezil Hcl 10 Mg Tablet) 10 mg PO DAILY [facility] Last Admin: 07/24/21 07:42 Dose: 10 mg Documented by: FLORECITA Duloxetine HCl (Duloxetine Hcl 60 Mg Capsule.Dr) 60 mg PO BID [facility] Last Admin: 07/24/21 07:41 Dose: 60 mg Documented by: FLORECITA Glucose (Glucose Gel 15 Gm Gel..Gram.) 15 gm PO Q15M PRN; Protocol PRN Reason: per Hypoglycemia Standing Ord. Hydromorphone HCl (Hydromorphone Hcl 0.5 Mg/0.5 Ml Syringe) 0.5 mg IVPUSH Q4H PRN; Protocol PRN Reason: Pain, Severe (Pain Scale 7-10) Last Admin: 07/23/21 23:37 Dose: 0.5 mg Documented by: CESAR Ceftriaxone Sodium 1 gm/ (Sodium Chloride) 50 mls @ 100 mls/hr IV Q24H [facility] Last Infusion: 07/24/21 05:20 Dose: 0 mls/hr Documented by: CESRA Insulin Glargine (Insulin Glargine,Hum.Rec.Anlog 100 Unit/Ml 10 Ml Vial) 30 unit SUBCUT BEDTIME [facility] Last Admin: 07/23/21 19:58 Dose: 30 unit Documented by: CESAR Insulin Human Lispro (Insulin Lispro 100 Unit/Ml 3 Ml Vial) 0.1 - 10 unit SUBCUT QIDACHS [facility]; Protocol Last Admin: 07/24/21 07:40 Dose: 6 unit Documented by: FLORECITA Insulin Human Lispro (Insulin Lispro 100 Unit/Ml 3 Ml Vial) 5 unit SUBCUT TIDWM [facility] Last Admin: 07/24/21 09:05 Dose: 5 unit Documented by: FLORECITA Losartan Potassium (Losartan Potassium 50 Mg Tablet) 100 mg PO DAILY [facility]; Protocol Last Admin: 07/24/21 09:03 Dose: Not Given Documented by: FLORECITA Non-Admin Reason: Previously Administered Melatonin (Melatonin 3 Mg Tablet) 6 mg PO BEDTIME PRN PRN Reason: Insomnia Memantine (Memantine Hcl 10 Mg Tablet) 10 mg PO BID [facility] Last Admin: 07/24/21 07:41 Dose: 10 mg Documented by: FLORECITA Metoprolol Succinate (Metoprolol Succinate Er 50 Mg Tab.Er.24h) 50 mg PO DAILY [facility]; Protocol Last Admin: 07/24/21 07:41 Dose: 50 mg Documented by: FLORECITA Metronidazole (Metronidazole 500 Mg Tablet) 500 mg PO Q8H [facility] Last Admin: 07/24/21 07:41 Dose: 500 mg Documented by: FLORECITA Omeprazole (Omeprazole 20 Mg Capsule.Dr) 20 mg PO DAILY@0630 [facility] Last Admin: 07/24/21 04:39 Dose: 20 mg Documented by: CESAR Ondansetron HCl (Ondansetron Hcl 4 Mg/2 Ml Vial) 4 mg IVPUSH ONCE PRN PRN Reason: Nausea and Vomiting Oxycodone HCl (Oxycodone Hcl Immed Release 5 Mg Tablet) 10 mg PO Q4H PRN PRN Reason: Pain, Severe (Pain Scale 7-10) Last Admin: 07/24/21 09:06 Dose: 10 mg Documented by: FLORECITA Oxycodone HCl (Oxycodone Hcl Immed Release 5 Mg Tablet) 5 mg PO Q4H PRN PRN Reason: Pain, Moderate (Pain Scale 4-6 Pharmacy Consult (Consult Rx Perform Med Rec) 1 each MISCELLANE ONCE PRN PRN Reason: Consult order Polyethylene Glycol (Polyethylene Glycol 3350 17 Gm Powd.Pack) 17 gm PO DAILY PRN PRN Reason: Constipation Senna (Sennosides 8.6 Mg Tablet) 8.6 mg PO BEDTIME [facility] Last Admin: 07/23/21 19:58 Dose: 8.6 mg Documented by: CESAR Sodium Chloride (0.9 % Sodium Chloride Flush 3 Ml Syringe) 3 ml IVFLUSH QSHIFT [facility] Last Admin: 07/24/21 07:40 Dose: 3 ml Documented by: FLORECITA Vitamin D (Cholecalciferol (Vitamin D3) 25 Mcg Tablet) 25 mcg PO DAILY [facility] Last Admin: 07/24/21 07:41 Dose: 25 mcg Documented by: FLORECITA <GUERA Cartagena - Last Filed: 07/24/21 10:55> Labs CBC & Chem 7: : 07/25/21 06:47 07/25/21 06:47 <GUERA Cartagena - Last Filed: 07/24/21 10:55> Labs: Laboratory Results - last 24 hr 07/23/21 07/23/21 07/23/21 10:59 16:09 19:47 MCV MCH MCHC RDW Plt Count MPV Absolute Nucleated RBC Nucleated RBC % (auto) Anion Gap Estim Creat Clear Calc Estimated GFR POC Glucose 344 H 300 H 330 H Random Glucose Calcium 07/24/21 07/24/21 07/24/21 06:45 06:45 07:19 MCV 90.2 MCH 28.7 MCHC 31.8 RDW 14.9 Plt Count 230 MPV 11.3 Absolute Nucleated RBC 0.000 Nucleated RBC % (auto) 0.0 Anion Gap 12 Estim Creat Clear Calc 82.4 Estimated GFR > 60 POC Glucose 293 H Random Glucose 275 H Calcium 8.6 <GUERA Cartagena - Last Filed: 07/24/21 10:55> Assessment and Plan (1) S/P laparoscopic cholecystectomy: Status: Acute <GUERA Cartagena - Last Filed: 07/24/21 10:55> (2) Paroxysmal atrial flutter: Status: Acute <GUERA Cartagena - Last Filed: 07/24/21 10:55> (3) Acute calculous cholecystitis: Status: Acute <GUERA Cartagena - Last Filed: 07/24/21 10:55> (4) Diabetes: Status: Acute <GUERA Cartagena - Last Filed: 07/24/21 10:55> (5) Elevated liver enzymes: Status: Acute <GUERA Cartagena - Last Filed: 07/24/21 10:55> (6) Bacteremia: Status: Acute <GUERA Cartagena - Last Filed: 07/24/21 10:55> Assessment and Plan: 71-year-old male with a past medical history of hypertension, hyperlipidemia, diabetes, coronary artery disease status post CABG, KATINA on CPAP, history of Alzheimer's dementia presented to the hospital with a chief complaint of right upper quadrant abdominal pain/noted to have acute cholecystitis/gallstones/transaminitis.? Pain? improved with NPO status pain Atrial flutter HR controlled unclear if new onset, may have been on coumadin in the past but not on AC on admission CHADS2 Vasc score 3, Has Bled score 2 continue AC with Eliquis (started 07/23) continue metoprolol Acute cholecystitis/cholilithiasis having post operative pain s/p lap lis 07/22 surgery following pain management incentive spirometry leukocytosis probably reactive secondary to surgery afebrile Bacteremia. Clostridium perfringens Escherichia coli continue IV ceftriaxone/metronidazole for 14 days Type 2 diabetes requiring insulin POC in 300s Continue sliding scale increase Lantus (on toujeo at baseline) add premeal insulin glimepiride, jardiance on hold ? ? Cholestatic LFTs zetia/statin on hold follow LFTs Hypertension BP running high increase losartan continue metoprolol CAD Aspirin on hold pending procedure.? Continue other therapies Echo shows EF 40-45% with basal inferior and basal inferoseptal akinesis, no further workup necessary GERD Continue PPI Mood continue cymbalta dementia continue aricept, namenda KATINA continue cpap DVT prophylaxis: Eliquis Code status: Full code Attending Dr. Low <GUERA Cartagena - Last Filed: 07/24/21 10:55> Quality Stroke Does the patient have a stroke diagnosis?: No <GUERA Cartagena - Last Filed: 07/24/21 10:55> VTE Prior VTE?: No <GUERA Cartagena - Last Filed: 07/24/21 10:55> VTE Risk Level:: Medical - moderate - high <GUERA Cartagena - Last Filed: 07/24/21 10:55> VTE Device Contraindication: N/A - Device Ordered <GUERA Cartagena - Last Filed: 07/24/21 10:55> VTE Drug Contraindication: Treatment Not Indicated <GUERA Cartagena - Last Filed: 07/24/21 10:55>
[2021-07-24 11:13] LABS: Glucose, Whole Blood 310 mg/dL (60-115)
[2021-07-24 13:29] LABS: Alanine Aminotransferase 53 U/L (0-40); Albumin Level 3.2 g/dL (3.5-5.0); Alkaline Phosphatase 333 U/L (39-117); Aspartate Amino Transferase 31 U/L (5-37); Bilirubin Direct 0.8 mg/dL (0.0-0.5); Bilirubin Total 1.3 mg/dL (0.0-1.0); Total Protein 5.7 g/dL (6.5-8.0)
[2021-07-24 15:44] LABS: Glucose, Whole Blood 446 mg/dL (60-115)
[2021-07-24 19:44] LABS: Glucose, Whole Blood 367 mg/dL (60-115)
[2021-07-24] MEDS: Sennosides 8.6 MG TABLET PO (20:51)
[2021-07-24] MEDS: Docusate Sodium 100 MG CAPSULE PO (20:51)
[2021-07-24] MEDS: Insulin Glargine,Hum.rec.anlog 100 UNIT/ML 10 ML VIAL 35 UNIT SUBCUT (20:54)
[2021-07-24] MEDS: oxyCODONE HCl Immed Release 5 MG TABLET PO (23:43)
[2021-07-25] VITALS (11 sets, daily range): BP systolic 135–162; BP diastolic 72–86; PULSE 65–74; RESP 18–20; TEMP 35.6–37.1; O2SAT 87–97
[2021-07-25] MEDS: Omeprazole 20 MG CAPSULE.DR PO (05:17)
[2021-07-25] MEDS: cefTRIAXone sodium 1 GM in 0.9 % Sodium Chloride 50 ML IV (05:17)
[2021-07-25 07:06] LABS: MANUAL DIFF FLAG NO
[2021-07-25 07:12] LABS: Basophils Absolute Auto 0.1 X10*3/uL (0.0-0.2); Basophils Percent Auto 0.3 % (0-2); Eosinophils Absolute Auto 0.5 X10*3/uL (0.0-0.4); Eosinophils Percent Auto 2.7 % (0-4); Hematocrit 44.2 % (42.0-52.0); Hemoglobin 14.7 g/dl (14.0-18.0); Imm Gran Abs Auto 0.08 X10*3/uL (0.00-0.03); Imm Gran Pct Auto 0.4 % (0.0-0.4); Lymphocytes Absolute Auto 1.9 X10*3/uL (1.2-4.9); Lymphocytes Percent Auto 10.5 % (20-40); Mean Corpuscular HGB Conc 33.3 g/dl (31.0-36.0); Mean Corpuscular Hemoglobin 29.2 pg (27.0-33.0); Mean Corpuscular Volume 87.9 fL (80.0-98.0); Mean Platelet Volume 11.1 fL (9.4-12.4); Monocytes Absolute Auto 1.3 X10*3/uL (0.1-1.2); Monocytes Percent Auto 6.8 % (2-11); Neutrophils Absolute Auto 14.5 x10*3/uL (2.0-8.3); Neutrophils Percent Auto 79.3 % (45-73); Platelet Count 253 X10*3/uL (160-400); Red Blood Count 5.03 X10*6/uL (4.60-5.80); Red Cell Distribution Width 14.7 % (11.0-16.0); White Blood Count 18.3 X10*3/uL (4.8-10.8)
[2021-07-25 07:35] LABS: Glucose, Whole Blood 233 mg/dL (60-115)
[2021-07-25 07:38] LABS: Anion Gap 14 (12-20); Blood Urea Nitrogen 13 mg/dL (9-16); Calcium 8.8 mg/dL (8.4-10.2); Carbon Dioxide 27 mmol/L (22-29); Chloride 99 mmol/L (96-108); Creatinine Clr Calc Pharmacy 96.8; Estimated Glomerular Filt Rate > 60; Glucose Random 235 mg/dL (60-115); Potassium 3.7 mmol/L (3.3-5.1); Sodium 136 mmol/L (135-145)
[2021-07-25] MEDS: oxyCODONE HCl Immed Release 5 MG TABLET 10 MG PO ×3 (07:58→21:14)
[2021-07-25] MEDS: Cyanocobalamin (Vitamin B-12) 1,000 MCG TABLET 1000 MCG PO (07:59)
[2021-07-25] MEDS: Losartan Potassium 50 MG TABLET 100 MG PO (07:59)
[2021-07-25] MEDS: Donepezil HCl 10 MG TABLET PO (07:59)
[2021-07-25] MEDS: DULoxetine HCl 60 MG CAPSULE.DR PO ×2 (08:00→21:07)
[2021-07-25] MEDS: metroNIDAZOLE 500 MG TABLET PO ×2 (08:00→16:44)
[2021-07-25] MEDS: Apixaban 5 MG TABLET PO ×2 (08:00→21:07)
[2021-07-25] MEDS: Memantine HCl 10 MG TABLET PO ×2 (08:00→21:07)
[2021-07-25] MEDS: Cholecalciferol (Vitamin D3) 25 MCG TABLET PO (08:01)
[2021-07-25] MEDS: Metoprolol Succinate ER 50 MG TAB.ER.24H PO (08:01)
[2021-07-25] MEDS: Ascorbic Acid 250 MG TABLET PO (08:02)
[2021-07-25] MEDS: Insulin Lispro 100 UNIT/ML 3 ML VIAL SUBCUT ×7 (08:02→21:07)
[2021-07-25] MEDS: 0.9 % Sodium Chloride Flush 3 ML SYRINGE IVFLUSH ×3 (08:03→21:07)
--- NOTE | 2021-07-25 10:46 | P.PNGS_ITS ---
Subjective Subjective Date of Service: 07/25/21 Interval history: still complains of incisional pain although slowly improving tolerating diet has flatus Physical Exam Vital Signs: Vital Signs: Last Vital Signs Temp 97.7 F 07/25/21 07:19 Pulse 74 07/25/21 08:01 Resp 18 07/25/21 07:19 BP 143/86 H 07/25/21 08:01 Pulse Ox 93 07/25/21 07:19 Oxygen Flow Rate 2 07/22/21 11:56 BMI result Body Mass Index 36.6 Const: General: comfortable Eyes: Sclerae: sclerae normal Resp: Effort & Inspection: normal respiratory effort Cardio: Rhythm: abnormal rhythm GI: Other: incisions clean Palpation (GI): Soft to palpation, not firm and no guarding Objective Data Active Medications Apixaban (Apixaban 5 Mg Tablet) 5 mg PO BID [facility] Last Admin: 07/25/21 08:00 Dose: 5 mg Documented by: ONEIDA Ascorbic Acid (Ascorbic Acid 250 Mg Tablet) 250 mg PO DAILY [facility] Last Admin: 07/25/21 08:02 Dose: 250 mg Documented by: ONEIDA Calcium Carbonate (Calcium Carbonate 500 Mg Tablet) 1,000 mg PO BID [facility] Last Admin: 07/25/21 08:00 Dose: 1,000 mg Documented by: ONEIDA Cyanocobalamin (Cyanocobalamin (Vitamin B-12) 1,000 Mcg Tablet) 1,000 mcg PO DAILY [facility] Last Admin: 07/25/21 07:59 Dose: 1,000 mcg Documented by: ONEIDA Dextrose (Dextrose 50 % 25 Gm/50 Ml Vial) 25 gm IVPUSH Q15M PRN; Protocol PRN Reason: per Hypoglycemia Standing Ord. Docusate Sodium (Docusate Sodium 100 Mg Capsule) 100 mg PO BEDTIME [facility] Last Admin: 07/24/21 20:51 Dose: 100 mg Documented by: CESAR Donepezil HCl (Donepezil Hcl 10 Mg Tablet) 10 mg PO DAILY [facility] Last Admin: 07/25/21 07:59 Dose: 10 mg Documented by: ONEIDA Duloxetine HCl (Duloxetine Hcl 60 Mg Capsule.Dr) 60 mg PO BID [facility] Last Admin: 07/25/21 08:00 Dose: 60 mg Documented by: ONEIDA Glucose (Glucose Gel 15 Gm Gel..Gram.) 15 gm PO Q15M PRN; Protocol PRN Reason: per Hypoglycemia Standing Ord. Ceftriaxone Sodium 1 gm/ (Sodium Chloride) 50 mls @ 100 mls/hr IV Q24H [facility] Last Infusion: 07/25/21 06:00 Dose: 0 mls/hr Documented by: CESAR Insulin Glargine (Insulin Glargine,Hum.Rec.Anlog 100 Unit/Ml 10 Ml Vial) 35 unit SUBCUT BEDTIME [facility] Last Admin: 07/24/21 20:54 Dose: 35 unit Documented by: CESAR Insulin Human Lispro (Insulin Lispro 100 Unit/Ml 3 Ml Vial) 0.1 - 10 unit SUBCUT QIDACHS [facility]; Protocol Last Admin: 07/25/21 08:02 Dose: 4 unit Documented by: ONEIDA Insulin Human Lispro (Insulin Lispro 100 Unit/Ml 3 Ml Vial) 5 unit SUBCUT TIDWM [facility] Last Admin: 07/25/21 08:03 Dose: 5 unit Documented by: ONEIDA Losartan Potassium (Losartan Potassium 50 Mg Tablet) 100 mg PO DAILY [facility]; Protocol Last Admin: 07/25/21 07:59 Dose: 100 mg Documented by: ONEIDA Melatonin (Melatonin 3 Mg Tablet) 6 mg PO BEDTIME PRN PRN Reason: Insomnia Memantine (Memantine Hcl 10 Mg Tablet) 10 mg PO BID [facility] Last Admin: 07/25/21 08:00 Dose: 10 mg Documented by: ONEIDA Metoprolol Succinate (Metoprolol Succinate Er 50 Mg Tab.Er.24h) 50 mg PO DAILY [facility]; Protocol Last Admin: 07/25/21 08:01 Dose: 50 mg Documented by: ONEIDA Metronidazole (Metronidazole 500 Mg Tablet) 500 mg PO Q8H [facility] Last Admin: 07/25/21 08:00 Dose: 500 mg Documented by: ONEIDA Omeprazole (Omeprazole 20 Mg Capsule.) 20 mg PO DAILY@0630 [facility] Last Admin: 07/25/21 05:17 Dose: 20 mg Documented by: CESAR Ondansetron HCl (Ondansetron Hcl 4 Mg/2 Ml Vial) 4 mg IVPUSH ONCE PRN PRN Reason: Nausea and Vomiting Oxycodone HCl (Oxycodone Hcl Immed Release 5 Mg Tablet) 10 mg PO Q4H PRN PRN Reason: Pain, Severe (Pain Scale 7-10) Last Admin: 07/25/21 07:58 Dose: 10 mg Documented by: ONEIDA Oxycodone HCl (Oxycodone Hcl Immed Release 5 Mg Tablet) 5 mg PO Q4H PRN PRN Reason: Pain, Moderate (Pain Scale 4-6 Last Admin: 07/24/21 23:43 Dose: 5 mg Documented by: CESAR Pharmacy Consult (Consult Rx Perform Med Rec) 1 each MISCELLANE ONCE PRN PRN Reason: Consult order Polyethylene Glycol (Polyethylene Glycol 3350 17 Gm Powd.Pack) 17 gm PO DAILY PRN PRN Reason: Constipation Senna (Sennosides 8.6 Mg Tablet) 8.6 mg PO BEDTIME [facility] Last Admin: 07/24/21 20:51 Dose: 8.6 mg Documented by: CESAR Sodium Chloride (0.9 % Sodium Chloride Flush 3 Ml Syringe) 3 ml IVFLUSH QSHIFT [facility] Last Admin: 07/25/21 08:03 Dose: 3 ml Documented by: ONEIDA Vitamin D (Cholecalciferol (Vitamin D3) 25 Mcg Tablet) 25 mcg PO DAILY [facility] Last Admin: 07/25/21 08:01 Dose: 25 mcg Documented by: ONEIDA Labs CBC & Chem 7: 07/25/21 06:47 07/25/21 06:47 Labs: Laboratory Results - last 24 hr 07/24/21 07/24/21 07/24/21 06:45 10:58 15:38 MCV MCH MCHC RDW Plt Count MPV Immature Gran % (Auto) Neut % (Auto) Lymph % (Auto) [place] % (Auto) Eos % (Auto) Baso % (Auto) Lymph # (Auto) [place] # (Auto) Eos # (Auto) Baso # (Auto) Abs Immat Gran (auto) Absolute Neuts (auto) Absolute Nucleated RBC Nucleated RBC % (auto) Anion Gap Estim Creat Clear Calc Estimated GFR POC Glucose 310 H 446 H* Random Glucose Calcium Total Bilirubin 1.3 H Direct Bilirubin 0.8 H AST 31 D ALT 53 H Alkaline Phosphatase 333 H Total Protein 5.7 L Albumin 3.2 L 07/24/21 07/25/21 07/25/21 19:40 06:47 06:47 MCV 87.9 MCH 29.2 MCHC 33.3 RDW 14.7 Plt Count 253 MPV 11.1 Immature Gran % (Auto) 0.4 Neut % (Auto) 79.3 H Lymph % (Auto) 10.5 L [place] % (Auto) 6.8 Eos % (Auto) 2.7 Baso % (Auto) 0.3 Lymph # (Auto) 1.9 [place] # (Auto) 1.3 H Eos # (Auto) 0.5 H Baso # (Auto) 0.1 Abs Immat Gran (auto) 0.08 H Absolute Neuts (auto) 14.5 H Absolute Nucleated RBC 0.000 Nucleated RBC % (auto) 0.0 Anion Gap 14 Estim Creat Clear Calc 96.8 Estimated GFR > 60 POC Glucose 367 H* Random Glucose 235 H Calcium 8.8 Total Bilirubin Direct Bilirubin AST ALT Alkaline Phosphatase Total Protein Albumin 07/25/21 07:22 MCV MCH MCHC RDW Plt Count MPV Immature Gran % (Auto) Neut % (Auto) Lymph % (Auto) [place] % (Auto) Eos % (Auto) Baso % (Auto) Lymph # (Auto) [place] # (Auto) Eos # (Auto) Baso # (Auto) Abs Immat Gran (auto) Absolute Neuts (auto) Absolute Nucleated RBC Nucleated RBC % (auto) Anion Gap Estim Creat Clear Calc Estimated GFR POC Glucose 233 H Random Glucose Calcium Total Bilirubin Direct Bilirubin AST ALT Alkaline Phosphatase Total Protein Albumin Procedures Date of Service Date of Service: 07/25/21 Progress Note: A&P Assessment and plan (1) S/P laparoscopic cholecystectomy: Status: Acute Assessment and Plan: improving slowly pain mgt abd soft WBC still elevated no fever or other obvious infection source follow WBC encouraged ambulation and incentive spiromtery Fall Risk Details Current Medications: Current Medications Apixaban (Apixaban 5 Mg Tablet) 5 mg PO BID [facility] Last Admin: 07/25/21 08:00 Dose: 5 mg Documented by: Ascorbic Acid (Ascorbic Acid 250 Mg Tablet) 250 mg PO DAILY [facility] Last Admin: 07/25/21 08:02 Dose: 250 mg Documented by: Calcium Carbonate (Calcium Carbonate 500 Mg Tablet) 1,000 mg PO BID [facility] Last Admin: 07/25/21 08:00 Dose: 1,000 mg Documented by: Cyanocobalamin (Cyanocobalamin (Vitamin B-12) 1,000 Mcg Tablet) 1,000 mcg PO DAILY [facility] Last Admin: 07/25/21 07:59 Dose: 1,000 mcg Documented by: Dextrose (Dextrose 50 % 25 Gm/50 Ml Vial) 25 gm IVPUSH Q15M PRN; Protocol PRN Reason: per Hypoglycemia Standing Ord. Docusate Sodium (Docusate Sodium 100 Mg Capsule) 100 mg PO BEDTIME [facility] Last Admin: 07/24/21 20:51 Dose: 100 mg Documented by: Donepezil HCl (Donepezil Hcl 10 Mg Tablet) 10 mg PO DAILY [facility] Last Admin: 07/25/21 07:59 Dose: 10 mg Documented by: Duloxetine HCl (Duloxetine Hcl 60 Mg Capsule.Dr) 60 mg PO BID [facility] Last Admin: 07/25/21 08:00 Dose: 60 mg Documented by: Glucose (Glucose Gel 15 Gm Gel..Gram.) 15 gm PO Q15M PRN; Protocol PRN Reason: per Hypoglycemia Standing Ord. Ceftriaxone Sodium 1 gm/ (Sodium Chloride) 50 mls @ 100 mls/hr IV Q24H [facility] Last Infusion: 07/25/21 06:00 Dose: Infused Documented by: Insulin Glargine (Insulin Glargine,Hum.Rec.Anlog 100 Unit/Ml 10 Ml Vial) 35 unit SUBCUT BEDTIME [facility] Last Admin: 07/24/21 20:54 Dose: 35 unit Documented by: Insulin Human Lispro (Insulin Lispro 100 Unit/Ml 3 Ml Vial) 0.1 - 10 unit SUBCUT QIDACHS [facility]; Protocol Last Admin: 07/25/21 08:02 Dose: 4 unit Documented by: Insulin Human Lispro (Insulin Lispro 100 Unit/Ml 3 Ml Vial) 5 unit SUBCUT TIDWM [facility] Last Admin: 07/25/21 08:03 Dose: 5 unit Documented by: Losartan Potassium (Losartan Potassium 50 Mg Tablet) 100 mg PO DAILY [facility]; Protocol Last Admin: 07/25/21 07:59 Dose: 100 mg Documented by: Melatonin (Melatonin 3 Mg Tablet) 6 mg PO BEDTIME PRN PRN Reason: Insomnia Memantine (Memantine Hcl 10 Mg Tablet) 10 mg PO BID [facility] Last Admin: 07/25/21 08:00 Dose: 10 mg Documented by: Metoprolol Succinate (Metoprolol Succinate Er 50 Mg Tab.Er.24h) 50 mg PO DAILY [facility]; Protocol Last Admin: 07/25/21 08:01 Dose: 50 mg Documented by: Metronidazole (Metronidazole 500 Mg Tablet) 500 mg PO Q8H [facility] Last Admin: 07/25/21 08:00 Dose: 500 mg Documented by: Omeprazole (Omeprazole 20 Mg Capsule.Dr) 20 mg PO DAILY@0630 [facility] Last Admin: 07/25/21 05:17 Dose: 20 mg Documented by: Ondansetron HCl (Ondansetron Hcl 4 Mg/2 Ml Vial) 4 mg IVPUSH ONCE PRN PRN Reason: Nausea and Vomiting Oxycodone HCl (Oxycodone Hcl Immed Release 5 Mg Tablet) 10 mg PO Q4H PRN PRN Reason: Pain, Severe (Pain Scale 7-10) Last Admin: 07/25/21 07:58 Dose: 10 mg Documented by: Oxycodone HCl (Oxycodone Hcl Immed Release 5 Mg Tablet) 5 mg PO Q4H PRN PRN Reason: Pain, Moderate (Pain Scale 4-6 Last Admin: 07/24/21 23:43 Dose: 5 mg Documented by: Pharmacy Consult (Consult Rx Perform Med Rec) 1 each MISCELLANE ONCE PRN PRN Reason: Consult order Polyethylene Glycol (Polyethylene Glycol 3350 17 Gm Powd.Pack) 17 gm PO DAILY PRN PRN Reason: Constipation Senna (Sennosides 8.6 Mg Tablet) 8.6 mg PO BEDTIME [facility] Last Admin: 07/24/21 20:51 Dose: 8.6 mg Documented by: Sodium Chloride (0.9 % Sodium Chloride Flush 3 Ml Syringe) 3 ml IVFLUSH QSHIFT [facility] Last Admin: 07/25/21 08:03 Dose: 3 ml Documented by: Vitamin D (Cholecalciferol (Vitamin D3) 25 Mcg Tablet) 25 mcg PO DAILY [facility] Last Admin: 07/25/21 08:01 Dose: 25 mcg Documented by: Time Spent With Patient Time: Total time spent is greater than 50% in coordination of care (as documented) at patient's floor/unit and/or counseling patient: Time with patient: 15 - 24 minutes Quality Stroke Does the patient have a stroke diagnosis?: No VTE Prior VTE?: No VTE Risk Level:: Medical - moderate - high VTE Device Contraindication: N/A - Device Ordered VTE Drug Contraindication: Treatment Not Indicated
[2021-07-25 11:20] LABS: Glucose, Whole Blood 334 mg/dL (60-115)
--- NOTE | 2021-07-25 12:42 | P.PNIM_ITS ---
Subjective Subjective Date of Service: 07/25/21 <GUERA Cartagena - Last Filed: 07/25/21 12:47> 07/26/21 <Mathieu Low MD - Last Filed: 07/26/21 09:07> Interval History: seen and examined this morning follow up for cholecystitis abdominal pain better today does not want to get out of bed much <GUERA Cartagena - Last Filed: 07/25/21 12:47> Review of Systems Review of Systems: Yes all other systems are reviewed and are negative <GUERA Cartagena - Last Filed: 07/25/21 12:47> Constitutional Constitutional: Denies chills and Denies fever(s) <GUERA Cartagena - Last Filed: 07/25/21 12:47> Cardiovascular Cardiovascular: Denies chest pain <GUERA Cartagena - Last Filed: 07/25/21 12:47> Respiratory Respiratory: Denies cough <GUERA Cartagena - Last Filed: 07/25/21 12:47> Physical Exam 2 Vital Signs: Vital Signs: Last Vital Signs Temp 96.1 F L 07/25/21 11:12 Pulse 69 07/25/21 11:12 Resp 18 07/25/21 11:12 BP 138/77 07/25/21 11:12 Pulse Ox 97 07/25/21 11:12 Oxygen Flow Rate 2 07/25/21 11:00 BMI result Body Mass Index 36.6 <GUERA Cartagena - Last Filed: 07/25/21 12:47> Const: General: healthy appearing, awake and Physically active <GUERA Cartagena - Last Filed: 07/25/21 12:47> Nutritional Appearance: well nourished <GUERA Cartagena - Last Filed: 07/25/21 12:47> Orientation/consciousness: patient oriented x3 <GUERA Cartagena - Last Filed: 07/25/21 12:47> HENMT: Head: Yes normocephalic and Yes atraumatic <GUERA Cartagena Last Filed: 07/25/21 12:47> Eyes: Sclerae: sclerae normal <GUERA Cartagena Last Filed: 07/25/21 12:47> Resp: Other: small shallow breaths <GUERA Cartagena Last Filed: 07/25/21 12:47> Effort & Inspection: no respiratory distress <GUERA Cartagena Last Filed: 07/25/21 12:47> Auscultation: diminished lung sounds <GUERA Cartagena Last Filed: 07/25/21 12:47> Cardio: Rate: regular rate <GUERA Cartagena - Last Filed: 07/25/21 12:47> Rhythm: regular rhythm <GUERA Cartagena - Last Filed: 07/25/21 12:47> GI: Other: less tenderness, soft <GUERA Cartagena - Last Filed: 07/25/21 12:47> Neuro: General: patient oriented x3 <GUERA Cartagena Last Filed: 07/25/21 12:47> Cranial nerves: Yes CN's II-XII intact bilaterally and Yes Bilaterally intact EOM present <GUERA Cartagena Last Filed: 07/25/21 12:47> Extrem: Other: able to move all 4 extremities spontaneously <GUERA Cartagena Last Filed: 07/25/21 12:47> Objective Data Active Medications Apixaban (Apixaban 5 Mg Tablet) 5 mg PO BID [facility] Last Admin: 07/25/21 08:00 Dose: 5 mg Documented by: ONEIDA Ascorbic Acid (Ascorbic Acid 250 Mg Tablet) 250 mg PO DAILY [facility] Last Admin: 07/25/21 08:02 Dose: 250 mg Documented by: ONEIDA Calcium Carbonate (Calcium Carbonate 500 Mg Tablet) 1,000 mg PO BID [facility] Last Admin: 07/25/21 08:00 Dose: 1,000 mg Documented by: ONEIDA Cyanocobalamin (Cyanocobalamin (Vitamin B-12) 1,000 Mcg Tablet) 1,000 mcg PO DAILY [facility] Last Admin: 07/25/21 07:59 Dose: 1,000 mcg Documented by: ONEIDA Dextrose (Dextrose 50 % 25 Gm/50 Ml Vial) 25 gm IVPUSH Q15M PRN; Protocol PRN Reason: per Hypoglycemia Standing Ord. Docusate Sodium (Docusate Sodium 100 Mg Capsule) 100 mg PO BEDTIME [facility] Last Admin: 07/24/21 20:51 Dose: 100 mg Documented by: CESAR Donepezil HCl (Donepezil Hcl 10 Mg Tablet) 10 mg PO DAILY [facility] Last Admin: 07/25/21 07:59 Dose: 10 mg Documented by: ONEIDA Duloxetine HCl (Duloxetine Hcl 60 Mg Capsule.Dr) 60 mg PO BID [facility] Last Admin: 07/25/21 08:00 Dose: 60 mg Documented by: ONEIDA Glucose (Glucose Gel 15 Gm Gel..Gram.) 15 gm PO Q15M PRN; Protocol PRN Reason: per Hypoglycemia Standing Ord. Ceftriaxone Sodium 1 gm/ (Sodium Chloride) 50 mls @ 100 mls/hr IV Q24H [facility] Last Infusion: 07/25/21 06:00 Dose: 0 mls/hr Documented by: CESAR Insulin Glargine (Insulin Glargine,Hum.Rec.Anlog 100 Unit/Ml 10 Ml Vial) 35 unit SUBCUT BEDTIME [facility] Last Admin: 07/24/21 20:54 Dose: 35 unit Documented by: CESAR Insulin Human Lispro (Insulin Lispro 100 Unit/Ml 3 Ml Vial) 0.1 - 10 unit SUBCUT QIDACHS [facility]; Protocol Last Admin: 07/25/21 11:44 Dose: 8 unit Documented by: ONEIDA Insulin Human Lispro (Insulin Lispro 100 Unit/Ml 3 Ml Vial) 5 unit SUBCUT TIDWM [facility] Last Admin: 07/25/21 11:44 Dose: 5 unit Documented by: ONEIDA Losartan Potassium (Losartan Potassium 50 Mg Tablet) 100 mg PO DAILY [facility]; Protocol Last Admin: 07/25/21 07:59 Dose: 100 mg Documented by: ONEIDA Melatonin (Melatonin 3 Mg Tablet) 6 mg PO BEDTIME PRN PRN Reason: Insomnia Memantine (Memantine Hcl 10 Mg Tablet) 10 mg PO BID [facility] Last Admin: 07/25/21 08:00 Dose: 10 mg Documented by: ONEIDA Metoprolol Succinate (Metoprolol Succinate Er 50 Mg Tab.Er.24h) 50 mg PO DAILY [facility]; Protocol Last Admin: 07/25/21 08:01 Dose: 50 mg Documented by: ONEIDA Metronidazole (Metronidazole 500 Mg Tablet) 500 mg PO Q8H [facility] Last Admin: 07/25/21 08:00 Dose: 500 mg Documented by: ONEIDA Omeprazole (Omeprazole 20 Mg Capsule.Dr) 20 mg PO DAILY@0630 [facility] Last Admin: 07/25/21 05:17 Dose: 20 mg Documented by: CESAR Ondansetron HCl (Ondansetron Hcl 4 Mg/2 Ml Vial) 4 mg IVPUSH ONCE PRN PRN Reason: Nausea and Vomiting Oxycodone HCl (Oxycodone Hcl Immed Release 5 Mg Tablet) 10 mg PO Q4H PRN PRN Reason: Pain, Severe (Pain Scale 7-10) Last Admin: 07/25/21 07:58 Dose: 10 mg Documented by: ONEIDA Oxycodone HCl (Oxycodone Hcl Immed Release 5 Mg Tablet) 5 mg PO Q4H PRN PRN Reason: Pain, Moderate (Pain Scale 4-6 Last Admin: 07/24/21 23:43 Dose: 5 mg Documented by: CESAR Pharmacy Consult (Consult Rx Perform Med Rec) 1 each MISCELLANE ONCE PRN PRN Reason: Consult order Polyethylene Glycol (Polyethylene Glycol 3350 17 Gm Powd.Pack) 17 gm PO DAILY PRN PRN Reason: Constipation Senna (Sennosides 8.6 Mg Tablet) 8.6 mg PO BEDTIME [facility] Last Admin: 07/24/21 20:51 Dose: 8.6 mg Documented by: CESAR Sodium Chloride (0.9 % Sodium Chloride Flush 3 Ml Syringe) 3 ml IVFLUSH QSHIFT [facility] Last Admin: 07/25/21 08:03 Dose: 3 ml Documented by: ONEIDA Vitamin D (Cholecalciferol (Vitamin D3) 25 Mcg Tablet) 25 mcg PO DAILY [facility] Last Admin: 07/25/21 08:01 Dose: 25 mcg Documented by: ONEIDA <GUERA Cartagena - Last Filed: 07/25/21 12:47> Labs CBC & Chem 7: : 07/26/21 06:21 07/26/21 06:21 <GUERA Cartagena - Last Filed: 07/25/21 12:47> Labs: Laboratory Results - last 24 hr 07/24/21 07/24/21 07/24/21 06:45 15:38 19:40 MCV MCH MCHC RDW Plt Count MPV Immature Gran % (Auto) Neut % (Auto) Lymph % (Auto) [place] % (Auto) Eos % (Auto) Baso % (Auto) Lymph # (Auto) [place] # (Auto) Eos # (Auto) Baso # (Auto) Abs Immat Gran (auto) Absolute Neuts (auto) Absolute Nucleated RBC Nucleated RBC % (auto) Anion Gap Estim Creat Clear Calc Estimated GFR POC Glucose 446 H* 367 H* Random Glucose Calcium Total Bilirubin 1.3 H Direct Bilirubin 0.8 H AST 31 D ALT 53 H Alkaline Phosphatase 333 H Total Protein 5.7 L Albumin 3.2 L 07/25/21 07/25/21 07/25/21 06:47 06:47 07:22 MCV 87.9 MCH 29.2 MCHC 33.3 RDW 14.7 Plt Count 253 MPV 11.1 Immature Gran % (Auto) 0.4 Neut % (Auto) 79.3 H Lymph % (Auto) 10.5 L [place] % (Auto) 6.8 Eos % (Auto) 2.7 Baso % (Auto) 0.3 Lymph # (Auto) 1.9 [place] # (Auto) 1.3 H Eos # (Auto) 0.5 H Baso # (Auto) 0.1 Abs Immat Gran (auto) 0.08 H Absolute Neuts (auto) 14.5 H Absolute Nucleated RBC 0.000 Nucleated RBC % (auto) 0.0 Anion Gap 14 Estim Creat Clear Calc 96.8 Estimated GFR > 60 POC Glucose 233 H Random Glucose 235 H Calcium 8.8 Total Bilirubin Direct Bilirubin AST ALT Alkaline Phosphatase Total Protein Albumin 07/25/21 11:16 MCV MCH MCHC RDW Plt Count MPV Immature Gran % (Auto) Neut % (Auto) Lymph % (Auto) [place] % (Auto) Eos % (Auto) Baso % (Auto) Lymph # (Auto) [place] # (Auto) Eos # (Auto) Baso # (Auto) Abs Immat Gran (auto) Absolute Neuts (auto) Absolute Nucleated RBC Nucleated RBC % (auto) Anion Gap Estim Creat Clear Calc Estimated GFR POC Glucose 334 H Random Glucose Calcium Total Bilirubin Direct Bilirubin AST ALT Alkaline Phosphatase Total Protein Albumin <Es GUERA Clement - Last Filed: 07/25/21 12:47> Assessment and Plan (1) S/P laparoscopic cholecystectomy: Status: Acute <GUERA Cartagena - Last Filed: 07/25/21 12:47> (2) Paroxysmal atrial flutter: Status: Acute <GUERA Cartagena - Last Filed: 07/25/21 12:47> (3) Acute calculous cholecystitis: Status: Acute <GUERA Cartagena - Last Filed: 07/25/21 12:47> (4) Diabetes: Status: Acute <GUERA Cartagena - Last Filed: 07/25/21 12:47> (5) Bacteremia: Status: Acute <GUERA Cartagena - Last Filed: 07/25/21 12:47> Assessment and Plan: 71-year-old male with a past medical history of hypertension, hyperlipidemia, diabetes, coronary artery disease status post CABG, KATINA on CPAP, history of Alzheimer's dementia presented to the hospital with a chief complaint of right upper quadrant abdominal pain/noted to have acute cholecystitis/gallstones/transaminitis.? Pain? improved with NPO status pain Atrial flutter HR controlled unclear if new onset, may have been on coumadin in the past but not on AC on admission CHADS2 Vasc score 3, Has Bled score 2 continue AC with Eliquis (started 07/23) continue metoprolol Acute cholecystitis/cholilithiasis having post operative pain s/p lap lis 07/22 surgery following pain management incentive spirometry encourage OOB leukocytosis probably reactive secondary to surgery afebrile Bacteremia. Clostridium perfringens Escherichia coli continue IV ceftriaxone/metronidazole for 14 days Type 2 diabetes requiring insulin POC in 300s Continue sliding scale increase Lantus to 40U (on toujeo at baseline) add premeal insulin glimepiride, jardiance on hold ? ? Cholestatic LFTs zetia/statin on hold follow LFTs Hypertension BP improving continue losartan 100 daily continue metoprolol CAD Aspirin on hold pending procedure.? Continue other therapies Echo shows EF 40-45% with basal inferior and basal inferoseptal akinesis seen by cardiology no further workup necessary GERD Continue PPI Mood continue cymbalta dementia continue aricept, namenda KATINA continue cpap DVT prophylaxis: Eliquis Code status: Full code Attending Dr. Low Dispos: possibly discharge by tomorrow, pending PT eval <GUERA Cartagena - Last Filed: 07/25/21 12:47> Quality Stroke Does the patient have a stroke diagnosis?: No <GUERA Cartagena - Last Filed: 07/25/21 12:47> VTE Prior VTE?: No <GUERA Cartagena - Last Filed: 07/25/21 12:47> VTE Risk Level:: Medical - moderate - high <GUERA Cartagena - Last Filed: 07/25/21 12:47> VTE Device Contraindication: N/A - Device Ordered <GUERA Cartagena - Last Filed: 07/25/21 12:47> VTE Drug Contraindication: Treatment Not Indicated <GUERA Cartagena - Last Filed: 07/25/21 12:47>
[2021-07-25 16:38] LABS: Glucose, Whole Blood 238 mg/dL (60-115)
[2021-07-25 20:13] LABS: Glucose, Whole Blood 332 mg/dL (60-115)
[2021-07-25] MEDS: Docusate Sodium 100 MG CAPSULE PO (21:06)
[2021-07-25] MEDS: Sennosides 8.6 MG TABLET PO (21:07)
[2021-07-25] MEDS: Insulin Glargine,Hum.rec.anlog 100 UNIT/ML 10 ML VIAL 40 UNIT SUBCUT (21:07)
[2021-07-26] VITALS (8 sets, daily range): BP systolic 143–170; BP diastolic 69–80; PULSE 63–70; RESP 18–20; TEMP 36–37; O2SAT 90–94
[2021-07-26] MEDS: metroNIDAZOLE 500 MG TABLET PO ×3 (00:43→16:22)
[2021-07-26] MEDS: oxyCODONE HCl Immed Release 5 MG TABLET 10 MG PO (02:53)
[2021-07-26] MEDS: cefTRIAXone sodium 1 GM in 0.9 % Sodium Chloride 50 ML IV (05:36)
[2021-07-26] MEDS: Omeprazole 20 MG CAPSULE.DR PO (05:37)
[2021-07-26 06:34] LABS: MANUAL DIFF FLAG NO
[2021-07-26 06:39] LABS: Basophils Absolute Auto 0.1 X10*3/uL (0.0-0.2); Basophils Percent Auto 0.4 % (0-2); Eosinophils Absolute Auto 0.4 X10*3/uL (0.0-0.4); Eosinophils Percent Auto 2.8 % (0-4); Hemoglobin 14.2 g/dl (14.0-18.0); Imm Gran Abs Auto 0.09 X10*3/uL (0.00-0.03); Imm Gran Pct Auto 0.6 % (0.0-0.4); Lymphocytes Absolute Auto 1.9 X10*3/uL (1.2-4.9); Lymphocytes Percent Auto 12.3 % (20-40); Mean Corpuscular Volume 87.8 fL (80.0-98.0); Mean Platelet Volume 10.9 fL (9.4-12.4); Monocytes Absolute Auto 1.4 X10*3/uL (0.1-1.2); Monocytes Percent Auto 8.7 % (2-11); Neutrophils Absolute Auto 11.8 x10*3/uL (2.0-8.3); Neutrophils Percent Auto 75.2 % (45-73); Platelet Count 295 X10*3/uL (160-400); Red Cell Distribution Width 14.5 % (11.0-16.0); White Blood Count 15.7 X10*3/uL (4.8-10.8)
[2021-07-26 06:57] LABS: Anion Gap 13 (12-20); Blood Urea Nitrogen 14 mg/dL (9-16); Calcium 8.5 mg/dL (8.4-10.2); Carbon Dioxide 28 mmol/L (22-29); Chloride 99 mmol/L (96-108); Creatinine Clr Calc Pharmacy 100.6; Estimated Glomerular Filt Rate > 60; Glucose Random 248 mg/dL (60-115); Potassium 3.7 mmol/L (3.3-5.1); Sodium 136 mmol/L (135-145)
[2021-07-26 07:22] LABS: Glucose, Whole Blood 253 mg/dL (60-115)
[2021-07-26] MEDS: Metoprolol Succinate ER 50 MG TAB.ER.24H PO (07:47)
[2021-07-26] MEDS: Ascorbic Acid 250 MG TABLET PO (07:48)
[2021-07-26] MEDS: Losartan Potassium 50 MG TABLET 100 MG PO (07:48)
[2021-07-26] MEDS: Cyanocobalamin (Vitamin B-12) 1,000 MCG TABLET 1000 MCG PO (07:48)
[2021-07-26] MEDS: DULoxetine HCl 60 MG CAPSULE.DR PO (07:48)
[2021-07-26] MEDS: Donepezil HCl 10 MG TABLET PO (07:49)
[2021-07-26] MEDS: Apixaban 5 MG TABLET PO (07:49)
[2021-07-26] MEDS: Insulin Lispro 100 UNIT/ML 3 ML VIAL SUBCUT ×6 (07:49→16:23)
[2021-07-26] MEDS: Memantine HCl 10 MG TABLET PO (07:49)
[2021-07-26] MEDS: Cholecalciferol (Vitamin D3) 25 MCG TABLET PO (07:49)
[2021-07-26] MEDS: 0.9 % Sodium Chloride Flush 3 ML SYRINGE IVFLUSH ×2 (07:51→16:24)
--- NOTE | 2021-07-26 08:24 | P.PNGS_ITS ---
Subjective Subjective Date of Service: 07/26/21 Interval history: Says he is confused and forgot that he is still in the hospital Recalls that the did have surgery No other events reported Physical Exam Vital Signs: Vital Signs: Last Vital Signs Temp 98.0 F 07/26/21 07:38 Pulse 66 07/26/21 07:48 Resp 20 07/26/21 07:38 BP 152/80 H 07/26/21 07:48 Pulse Ox 92 07/26/21 07:38 Oxygen Flow Rate 2 07/25/21 11:00 BMI result Body Mass Index 36.6 Const: Other: Somewhat confused General: comfortable and no acute distress Eyes: Sclerae: sclerae normal Resp: Effort & Inspection: normal respiratory effort GI: Other: Tender on incisions Palpation (GI): Soft to palpation, not firm and no guarding Objective Data Active Medications Apixaban (Apixaban 5 Mg Tablet) 5 mg PO BID [facility] Last Admin: 07/26/21 07:49 Dose: 5 mg Documented by: ONEIDA Ascorbic Acid (Ascorbic Acid 250 Mg Tablet) 250 mg PO DAILY [facility] Last Admin: 07/26/21 07:48 Dose: 250 mg Documented by: ONEIDA Calcium Carbonate (Calcium Carbonate 500 Mg Tablet) 1,000 mg PO BID [facility] Last Admin: 07/26/21 07:47 Dose: 1,000 mg Documented by: ONEIDA Cyanocobalamin (Cyanocobalamin (Vitamin B-12) 1,000 Mcg Tablet) 1,000 mcg PO DAILY [facility] Last Admin: 07/26/21 07:48 Dose: 1,000 mcg Documented by: ONEIDA Dextrose (Dextrose 50 % 25 Gm/50 Ml Vial) 25 gm IVPUSH Q15M PRN; Protocol PRN Reason: per Hypoglycemia Standing Ord. Docusate Sodium (Docusate Sodium 100 Mg Capsule) 100 mg PO BEDTIME [facility] Last Admin: 07/25/21 21:06 Dose: 100 mg Documented by: KYLIE Donepezil HCl (Donepezil Hcl 10 Mg Tablet) 10 mg PO DAILY [facility] Last Admin: 07/26/21 07:49 Dose: 10 mg Documented by: ONEIDA Duloxetine HCl (Duloxetine Hcl 60 Mg Capsule.Dr) 60 mg PO BID [facility] Last Admin: 07/26/21 07:48 Dose: 60 mg Documented by: ONEIDA Glucose (Glucose Gel 15 Gm Gel..Gram.) 15 gm PO Q15M PRN; Protocol PRN Reason: per Hypoglycemia Standing Ord. Ceftriaxone Sodium 1 gm/ (Sodium Chloride) 50 mls @ 100 mls/hr IV Q24H [facility] Last Infusion: 07/26/21 06:30 Dose: 0 mls/hr Documented by: KYLIE Insulin Glargine (Insulin Glargine,Hum.Rec.Anlog 100 Unit/Ml 10 Ml Vial) 40 unit SUBCUT BEDTIME [facility] Last Admin: 07/25/21 21:07 Dose: 40 unit Documented by: KYLIE Insulin Human Lispro (Insulin Lispro 100 Unit/Ml 3 Ml Vial) 0.1 - 10 unit SUBCUT QIDACHS [facility]; Protocol Last Admin: 07/26/21 07:49 Dose: 6 unit Documented by: ONEIDA Insulin Human Lispro (Insulin Lispro 100 Unit/Ml 3 Ml Vial) 5 unit SUBCUT TIDWM [facility] Last Admin: 07/26/21 07:50 Dose: 5 unit Documented by: ONEIDA Losartan Potassium (Losartan Potassium 50 Mg Tablet) 100 mg PO DAILY [facility]; Protocol Last Admin: 07/26/21 07:48 Dose: 100 mg Documented by: ONEIDA Melatonin (Melatonin 3 Mg Tablet) 6 mg PO BEDTIME PRN PRN Reason: Insomnia Memantine (Memantine Hcl 10 Mg Tablet) 10 mg PO BID [facility] Last Admin: 07/26/21 07:49 Dose: 10 mg Documented by: ONEIDA Metoprolol Succinate (Metoprolol Succinate Er 50 Mg Tab.Er.24h) 50 mg PO DAILY [facility]; Protocol Last Admin: 07/26/21 07:47 Dose: 50 mg Documented by: ONEIDA Metronidazole (Metronidazole 500 Mg Tablet) 500 mg PO Q8H [facility] Last Admin: 07/26/21 07:47 Dose: 500 mg Documented by: ONEIDA Omeprazole (Omeprazole 20 Mg Capsule.) 20 mg PO DAILY@0630 [facility] Last Admin: 07/26/21 05:37 Dose: 20 mg Documented by: KYLIE Ondansetron HCl (Ondansetron Hcl 4 Mg/2 Ml Vial) 4 mg IVPUSH ONCE PRN PRN Reason: Nausea and Vomiting Oxycodone HCl (Oxycodone Hcl Immed Release 5 Mg Tablet) 10 mg PO Q4H PRN PRN Reason: Pain, Severe (Pain Scale 7-10) Last Admin: 07/26/21 02:53 Dose: 10 mg Documented by: KYLIE Oxycodone HCl (Oxycodone Hcl Immed Release 5 Mg Tablet) 5 mg PO Q4H PRN PRN Reason: Pain, Moderate (Pain Scale 4-6 Last Admin: 07/24/21 23:43 Dose: 5 mg Documented by: CESAR Pharmacy Consult (Consult Rx Perform Med Rec) 1 each MISCELLANE ONCE PRN PRN Reason: Consult order Polyethylene Glycol (Polyethylene Glycol 3350 17 Gm Powd.Pack) 17 gm PO DAILY PRN PRN Reason: Constipation Senna (Sennosides 8.6 Mg Tablet) 8.6 mg PO BEDTIME [facility] Last Admin: 07/25/21 21:07 Dose: 8.6 mg Documented by: KYLIE Sodium Chloride (0.9 % Sodium Chloride Flush 3 Ml Syringe) 3 ml IVFLUSH QSHIFT [facility] Last Admin: 07/26/21 07:51 Dose: 3 ml Documented by: ONEIDA Vitamin D (Cholecalciferol (Vitamin D3) 25 Mcg Tablet) 25 mcg PO DAILY [facility] Last Admin: 07/26/21 07:49 Dose: 25 mcg Documented by: ONEIDA Labs CBC & Chem 7: 07/26/21 06:21 07/26/21 06:21 Labs: Laboratory Results - last 24 hr 07/25/21 07/25/21 07/25/21 11:16 16:35 20:10 MCV MCH MCHC RDW Plt Count MPV Immature Gran % (Auto) Neut % (Auto) Lymph % (Auto) [place] % (Auto) Eos % (Auto) Baso % (Auto) Lymph # (Auto) [place] # (Auto) Eos # (Auto) Baso # (Auto) Abs Immat Gran (auto) Absolute Neuts (auto) Absolute Nucleated RBC Nucleated RBC % (auto) Anion Gap Estim Creat Clear Calc Estimated GFR POC Glucose 334 H 238 H 332 H Random Glucose Calcium 07/26/21 07/26/21 07/26/21 06:21 06:21 07:15 MCV 87.8 MCH 29.0 MCHC 33.0 RDW 14.5 Plt Count 295 MPV 10.9 Immature Gran % (Auto) 0.6 H Neut % (Auto) 75.2 H Lymph % (Auto) 12.3 L [place] % (Auto) 8.7 Eos % (Auto) 2.8 Baso % (Auto) 0.4 Lymph # (Auto) 1.9 [place] # (Auto) 1.4 H Eos # (Auto) 0.4 Baso # (Auto) 0.1 Abs Immat Gran (auto) 0.09 H Absolute Neuts (auto) 11.8 H Absolute Nucleated RBC 0.000 Nucleated RBC % (auto) 0.0 Anion Gap 13 Estim Creat Clear Calc 100.6 Estimated GFR > 60 POC Glucose 253 H Random Glucose 248 H Calcium 8.5 Procedures Date of Service Date of Service: 07/26/21 Progress Note: A&P Assessment and plan (1) S/P laparoscopic cholecystectomy: Status: Acute Assessment and Plan: Confused, likely sundowning As per daughter, he does have baseline dementia Otherwise appears comfortable Push oral intake WBC trending down May need physical therapy evaluation for placement Will continue to follow Discussed with daughter Robyn Fall Risk Details Current Medications: Current Medications Apixaban (Apixaban 5 Mg Tablet) 5 mg PO BID [facility] Last Admin: 07/26/21 07:49 Dose: 5 mg Documented by: Ascorbic Acid (Ascorbic Acid 250 Mg Tablet) 250 mg PO DAILY [facility] Last Admin: 07/26/21 07:48 Dose: 250 mg Documented by: Calcium Carbonate (Calcium Carbonate 500 Mg Tablet) 1,000 mg PO BID [facility] Last Admin: 07/26/21 07:47 Dose: 1,000 mg Documented by: Cyanocobalamin (Cyanocobalamin (Vitamin B-12) 1,000 Mcg Tablet) 1,000 mcg PO DAILY [facility] Last Admin: 07/26/21 07:48 Dose: 1,000 mcg Documented by: Dextrose (Dextrose 50 % 25 Gm/50 Ml Vial) 25 gm IVPUSH Q15M PRN; Protocol PRN Reason: per Hypoglycemia Standing Ord. Docusate Sodium (Docusate Sodium 100 Mg Capsule) 100 mg PO BEDTIME [facility] Last Admin: 07/25/21 21:06 Dose: 100 mg Documented by: Donepezil HCl (Donepezil Hcl 10 Mg Tablet) 10 mg PO DAILY [facility] Last Admin: 07/26/21 07:49 Dose: 10 mg Documented by: Duloxetine HCl (Duloxetine Hcl 60 Mg Capsule.) 60 mg PO BID [facility] Last Admin: 07/26/21 07:48 Dose: 60 mg Documented by: Glucose (Glucose Gel 15 Gm Gel..Gram.) 15 gm PO Q15M PRN; Protocol PRN Reason: per Hypoglycemia Standing Ord. Ceftriaxone Sodium 1 gm/ (Sodium Chloride) 50 mls @ 100 mls/hr IV Q24H [facility] Last Infusion: 07/26/21 06:30 Dose: Infused Documented by: Insulin Glargine (Insulin Glargine,Hum.Rec.Anlog 100 Unit/Ml 10 Ml Vial) 40 unit SUBCUT BEDTIME [facility] Last Admin: 07/25/21 21:07 Dose: 40 unit Documented by: Insulin Human Lispro (Insulin Lispro 100 Unit/Ml 3 Ml Vial) 0.1 - 10 unit SUBCUT QIDACHS [facility]; Protocol Last Admin: 07/26/21 07:49 Dose: 6 unit Documented by: Insulin Human Lispro (Insulin Lispro 100 Unit/Ml 3 Ml Vial) 5 unit SUBCUT TIDWM [facility] Last Admin: 07/26/21 07:50 Dose: 5 unit Documented by: Losartan Potassium (Losartan Potassium 50 Mg Tablet) 100 mg PO DAILY [facility]; Protocol Last Admin: 07/26/21 07:48 Dose: 100 mg Documented by: Melatonin (Melatonin 3 Mg Tablet) 6 mg PO BEDTIME PRN PRN Reason: Insomnia Memantine (Memantine Hcl 10 Mg Tablet) 10 mg PO BID [facility] Last Admin: 07/26/21 07:49 Dose: 10 mg Documented by: Metoprolol Succinate (Metoprolol Succinate Er 50 Mg Tab.Er.24h) 50 mg PO DAILY [facility]; Protocol Last Admin: 07/26/21 07:47 Dose: 50 mg Documented by: Metronidazole (Metronidazole 500 Mg Tablet) 500 mg PO Q8H [facility] Last Admin: 07/26/21 07:47 Dose: 500 mg Documented by: Omeprazole (Omeprazole 20 Mg Capsule.) 20 mg PO DAILY@0630 [facility] Last Admin: 07/26/21 05:37 Dose: 20 mg Documented by: Ondansetron HCl (Ondansetron Hcl 4 Mg/2 Ml Vial) 4 mg IVPUSH ONCE PRN PRN Reason: Nausea and Vomiting Oxycodone HCl (Oxycodone Hcl Immed Release 5 Mg Tablet) 10 mg PO Q4H PRN PRN Reason: Pain, Severe (Pain Scale 7-10) Last Admin: 07/26/21 02:53 Dose: 10 mg Documented by: Oxycodone HCl (Oxycodone Hcl Immed Release 5 Mg Tablet) 5 mg PO Q4H PRN PRN Reason: Pain, Moderate (Pain Scale 4-6 Last Admin: 07/24/21 23:43 Dose: 5 mg Documented by: Pharmacy Consult (Consult Rx Perform Med Rec) 1 each MISCELLANE ONCE PRN PRN Reason: Consult order Polyethylene Glycol (Polyethylene Glycol 3350 17 Gm Powd.Pack) 17 gm PO DAILY PRN PRN Reason: Constipation Senna (Sennosides 8.6 Mg Tablet) 8.6 mg PO BEDTIME [facility] Last Admin: 07/25/21 21:07 Dose: 8.6 mg Documented by: Sodium Chloride (0.9 % Sodium Chloride Flush 3 Ml Syringe) 3 ml IVFLUSH QSHIFT [facility] Last Admin: 07/26/21 07:51 Dose: 3 ml Documented by: Vitamin D (Cholecalciferol (Vitamin D3) 25 Mcg Tablet) 25 mcg PO DAILY [facility] Last Admin: 07/26/21 07:49 Dose: 25 mcg Documented by: Time Spent With Patient Time: Total time spent is greater than 50% in coordination of care (as juan m cummings) at patient's floor/unit and/or counseling patient: Time with patient: 15 - 24 minutes Quality Stroke Does the patient have a stroke diagnosis?: No VTE Prior VTE?: No VTE Risk Level:: Medical - moderate - high VTE Device Contraindication: N/A - Device Ordered VTE Drug Contraindication: Treatment Not Indicated
[2021-07-26 10:54] LABS: Glucose, Whole Blood 315 mg/dL (60-115)
--- NOTE | 2021-07-26 12:02 | MHC.CM.PN ---
IMM 07/26/21 MALE 71 s/p lap Jazlyn discharged today for STR. Preferences were obtained and referrals sent. [facility] has offered a bed. The bed has been accepted. The patient will transport via BLS @ 5pm this evening.
--- NOTE | 2021-07-26 12:29 | P.DS_ITS ---
DS: Providers Provider Date of Service: 07/26/21 Date of admission: 07/13/21 04:03 Primary care physician: Unknown Physician Consults: 07/13/21 04:01 Consult to Gastroenterology Routine Consulting Provider: Carlitos Yadav Reason for consultation: transaminitis Consult to General Surgery Routine Consulting Provider: Karel Padilla Reason for consultation: cholecystitis; gallstones 07/14/21 16:15 Consult to Infectious Diseases Routine Consulting Provider: Shelia Alvares Reason for consultation: Bacteremia Has provider been notified: No 07/19/21 13:49 Consult to Cardiology Routine Consulting Provider: Nelson Solis Reason for consultation: new onset aflutter, was pre-op for lap lis, sent back up after ekg Has provider been notified: No Attending physician on discharge: Mathieu Low Discharging clinician: Brook Lindsey DS: Diagnosis Discharge Diagnosis (1) S/P laparoscopic cholecystectomy: Status: Acute (2) Paroxysmal atrial flutter: Status: Acute (3) Acute calculous cholecystitis: Status: Acute (4) Diabetes: Status: Acute (5) Bacteremia: Status: Acute DS: Summary Hospital Course Hospital Course: HP as per admitting provider 71-year-old male with a past medical history of hypertension, hyperlipidemia, diabetes, coronary artery disease status post CABG, obesity, KATINA on CPAP, history of Alzheimer's dementia presented to the hospital with a chief complaint of right upper quadrant abdominal pain. Patient reports that he has been having right upper quadrant abdominal pain associated nausea and vomiting for the past couple days.? He presented to the ER yesterday noted to have gallstones and subsequently sent home; presented back today to the hospital again with the worsening abdominal pain; mentions is not able to take anything p.o..? Denies any fevers.? Denies any cough or sputum production.? Denies any urinary symptoms.? Denies any chest pain palpitations lightheadedness or dizziness.?Review of all other systems is negative except mentioned above ER course: Per ER team patient noted to have gallstones on the CT scan from yesterday; also noted mild transaminitis; the follow-up CT scan showed findings concerning for cholecystitis; also noted to have severely elevated liver enzymes compared to yesterday; patient was given IV antibiotics given concerns for acute cholecystitis-spoke to General surgery who suggested admission to medicine service . Acute cholecystitis. Status post cholecystectomy on 07/22/2021. did well postoperatively. Evaluated by Cardiology preoperatively. Seen examined by Physical therapy with recommendation for short-term rehab. Atrial fibrillation with rapid ventricular response. appear to be new onset. Echocardiogram showed EF of 40-45% with basal inferior / inferior septal wall akinesis. Started on Eliquis. Patient to follow-up with his wire stockkeeper through [facility] as an outpatient. Bacteremia. E coli and Clostridium. treated with Rocephin and Flagyl. Home wi th Ceftin and Flagyl Time Spent with Patient Time attestation: Total time spent providing and/or coordinating discharge services: Discharge coordination time: Greater than 30 minutes Quality: Stroke Does the patient have a stroke diagnosis?: No Physical Exam Verdana 4l Vital Signs: Verdana 4d Verdana 4d Vital Signs: Verdana 4d Verdana 4Bd Last Vital Signs Verdana 4d Ferryboat Operator Helper New 4d Ferryboat Operator Helper New 4d Temp 96.8 F 07/26/21 11:14 Ferryboat Operator Helper New 4d Pulse 67 07/26/21 11:14 Ferryboat Operator Helper NewNew 4d Resp 20 07/26/21 07:38 BP 143/79 H 07/26/21 11:14 Pulse Ox 92 07/26/21 11:14 Oxygen Flow Rate 2 07/26/21 11:00 BMI result Body Mass Index 36.6 Appearing in no acute distress head is normocephalic atraumatic eyes pupils are PERRLA sclera is anicteric mouth throat mucous membranes are intact and moist neck is supple no lymphadenopathy, no JVD noted lung sounds are clear to auscultation heart regular rate rhythm, clear S1, S2 positive bowel sounds, abdomen is soft, nontender neuro patient is alert x3, no focal deficits DS: Data Data Completed and Pending Completed studies during hospitalization [Text1]: Pending at discharge 07/22/21 10:34 Surgical [PTH] Routine Labs on day of discharge: Laboratory Results - last 24 hr 07/25/21 07/25/21 07/26/21 16:35 20:10 06:21 WBC 15.7 H RBC 4.90 Hgb 14.2 Hct 43.0 MCV 87.8 MCH 29.0 MCHC 33.0 RDW 14.5 Plt Count 295 MPV 10.9 Immature Gran % (Auto) 0.6 H Neut % (Auto) 75.2 H Lymph % (Auto) 12.3 L [place] % (Auto) 8.7 Eos % (Auto) 2.8 Baso % (Auto) 0.4 Lymph # (Auto) 1.9 [place] # (Auto) 1.4 H Eos # (Auto) 0.4 Baso # (Auto) 0.1 Abs Immat Gran (auto) 0.09 H Absolute Neuts (auto) 11.8 H Absolute Nucleated RBC 0.000 Nucleated RBC % (auto) 0.0 Sodium Potassium Chloride Carbon Dioxide Anion Gap BUN Creatinine Estim Creat Clear Calc Estimated GFR POC Glucose 238 H 332 H Random Glucose Calcium 07/26/21 07/26/21 07/26/21 06:21 07:15 10:49 WBC RBC Hgb Hct MCV MCH MCHC RDW Plt Count MPV Immature Gran % (Auto) Neut % (Auto) Lymph % (Auto) [place] % (Auto) Eos % (Auto) Baso % (Auto) Lymph # (Auto) [place] # (Auto) Eos # (Auto) Baso # (Auto) Abs Immat Gran (auto) Absolute Neuts (auto) Absolute Nucleated RBC Nucleated RBC % (auto) Sodium 136 Potassium 3.7 Chloride 99 Carbon Dioxide 28 Anion Gap 13 BUN 14 Creatinine 0.77 Estim Creat Clear Calc 100.6 Estimated GFR > 60 POC Glucose 253 H 315 H Random Glucose 248 H Calcium 8.5 Discharge Plan Discharge Anticipated Discharge Date/Time: 07/26/21 12:26 Patient Disposition: Xfer Inpatient Rehab Fac Discharge Diagnosis: Acute cholecystitis status post cholecystectomy Atrial fibrillation with rapid ventricular response Bacteremia Referrals: [facility] QUINTER[facility] [Other] - 1 Week [facility] [Outside] - 1 Week Karel Padilla MD [Physician] - 2 Weeks Discharge Medications: New Eliquis 5 mg Tablet 5 mg PO BID Qty: 60 RF: 0 metronidazole 500 mg Tablet 500 mg PO Q8H Qty: 30 RF: 0 cefuroxime axetil 500 mg tablet 500 mg PO BID Qty: 20 RF: 0 oxycodone 5 mg tablet 5 mg PO Q8H PRN (Reason: pain) Qty: 9 RF: 0 Continued donepezil 10 mg tablet 1 tab PO DAILY RF: 0 glimepiride 4 mg tablet 1 tab PO BID RF: 0 insulin aspart U-100 [Novolog Flexpen U-100 Insulin] 100 unit/mL (3 mL) insulin pen See Protocol RF: 0 ezetimibe-simvastatin 10-80 mg tablet 1 tab PO BEDTIME RF: 0 Jardiance 25 mg tablet 1 tab PO DAILY RF: 0 Toujeo SoloStar U-300 Insulin 300 unit/mL (1.5 mL) insulin pen 49 unit subcut DAILY RF: 0 pantoprazole 40 mg tablet,delayed release (DR/EC) 1 tab PO DAILY RF: 0 losartan 50 mg tablet 1 tab PO DAILY RF: 0 metoprolol succinate 50 mg tablet extended release 24 hr 1 tab PO DAILY RF: 0 duloxetine 60 mg capsule,delayed release(DR/EC) 60 mg PO BID RF: 0 cyanocobalamin (vitamin B-12) 1,000 mcg Tablet 1,000 mcg PO DAILY RF: 0 calcium carbonate [Calcium 500] 500 mg calcium (1,250 mg) Tablet 1,000 mg PO BID RF: 0 ascorbic acid (vitamin C) [Vitamin C] 500 mg Tablet 250 mg PO DAILY RF: 0 cholecalciferol (vitamin D3) [Vitamin D3] 25 mcg (1,000 unit) Tablet 25 mcg PO DAILY RF: 0 memantine 10 mg tablet 10 mg PO BID RF: 0 Discharge Orders: Discharge Order (Routine); Ordered 07/26/21 Ordered By: Brook Lindsey Diet: advance to usual diet Activity on Discharge: As tolerated Stand Alone Forms: Patient Portal Discharge page Activity Restrictions/Additional Instructions: If the incision area is tender, you may apply an ice pack for short intervals (No more than 20 minutes on, followed by at least 20 minutes off). Do not apply heat. Do not use creams, lotions, or topical antibiotics unless instructed to do so by your surgeon. These can cause infection or allergic reaction. Ok to shower 24 hours after your surgery. Remove bandaids in 2 days and replace. You have steri strips (small white cloth strips) covering your incision- these will fall off ~1 week. Follow up in office with Dr. Padilla in 2 weeks. ([phone]) No heavy lifting (>10-20lbs)! Call Your Doctor If: -Your temperature exceeds 101.5? F -You experience excessive pain or swelling -You have an unexpected reaction to medication -You have excessive bleeding -You experience continued vomiting/nausea -Your incision begins to separate -Your incision shows signs of infection such as increased redness, swelling, excessive pain, drainage (light blood or clear fluid is normal) or heat Care Plan Goals: resolution of initial symptoms Health Concerns: Acute cholecystitis Atrial fibrillation with rapid ventricular response Bacteremia Plan of Treatment: Follow-up with primary care provider when discharged from rehab You will be sent with antibiotics, please take as prescribed Assessment: see discharge summary
[2021-07-26 13:16] LABS: COVID-19 Test Negative (Negative)
[2021-07-26 16:13] LABS: Glucose, Whole Blood 218 mg/dL (60-115)
== END 2021-07-26 17:32 | DRG 418 ==
LOC: HO.ED 03:46 → HO.EDOVER 04:07 → HO.IMC 23:41
PROVIDERS: Hospitalist; Internal Medicine; Physician Assistant Medical; Surgery; Admitting Provider Hospitalist; Emergency Provider Emergency Medicine; Visit Provider Nurse Practitioner Acute Care
PROC: 0FT44ZZ Resection of Gallbladder, Percutaneous Endoscopic Approach (ICD-10-PCS; CPT 47562; principal; 2021-07-22 08:40)
DX: K80.00 Calculus of gallbladder with acute cholecystitis without obstruction (principal); R78.81 Bacteremia; E78.5 Hyperlipidemia, unspecified; E11.9 Type 2 diabetes mellitus without complications; B96.7 Clostridium perfringens [C. perfringens] as the cause of diseases classified elsewhere; B96.20 Unspecified Escherichia coli [E. coli] as the cause of diseases classified elsewhere; I48.0 Paroxysmal atrial fibrillation; G30.9 Alzheimer's disease, unspecified; F02.80 Dementia in other diseases classified elsewhere, unspecified severity, without behavioral disturbance, psychotic disturbance, mood disturbance, and anxiety; I25.10 Atherosclerotic heart disease of native coronary artery without angina pectoris; F39 Unspecified mood [affective] disorder; K21.9 Gastro-esophageal reflux disease without esophagitis; D72.828 Other elevated white blood cell count; G47.33 Obstructive sleep apnea (adult) (pediatric); Z99.89 Dependence on other enabling machines and devices; Z20.822 Contact with and (suspected) exposure to COVID-19; Z98.84 Bariatric surgery status; Z87.891 Personal history of nicotine dependence; Z79.4 Long term (current) use of insulin; Z79.01 Long term (current) use of anticoagulants; Z79.899 Other long term (current) drug therapy
CPT/HCPCS: 36415; 71045; 74176; 74181; 76705; 80048; 80053; 80076; 81001; 82040; 82247; 82947; 83605; 83690; 83735; 84075; 84155; 84450; 84460; 84484; 85025; 85027; 85610; 86850; 86900; 86901; 87040; 87076; 87077; 87086; 87185; 87186; 87205; 87635; 88304; 93005; 93306; 96361; 96365; 96375; 97162; 99024; 99284; 99285; J0131; J0696; J1170; J1885; J1956; J2270; J2370; J2405; J2543; J3010

== ENCOUNTER 2021-07-30 13:50 | Inpatient (IN) | payer MEDICARE, BC, SELFPAY ==
--- NOTE | ~2021-07-30 | CT_ITS ---
EXAMINATION: CT ABDOMEN AND PELVIS WITH CONTRAST CLINICAL INFORMATION: Postoperative right upper quadrant pain COMPARISON: CT abdomen pelvis 07/12/2021 TECHNIQUE: Multidetector volumetric images were obtained from the superior aspect of the liver through the pubic symphysis following administration 85 mL of Omnipaque 350 intravenous contrast. Sagittal and coronal reformatted images were obtained on the technologist's workstation. Oral contrast: No This CT examination was performed using dose optimization techniques as appropriate, variously including the following: *Automated exposure control *Adjustment of mA and/or kV according to patient size (this includes techniques or standardized protocols for targeted exams where dose is matched to indication/reason for exam; i.e. extremities or head) *Use of iterative reconstruction technique DLP: 736 mGy-cm FINDINGS: LUNG BASES: Bibasilar atelectasis is present which is new, right greater than left. A tiny right pleural effusion is present. LIVER, GALLBLADDER, AND BILIARY TREE: The liver is normal in size, shape, and attenuation. A complex fluid collection with air is present in the gallbladder fossa measuring 6.8 x 4.7 x 4.9 cm (4:186). These inflammatory changes are present around this along with a tiny bit of associated ascites. There is a small amount of air present in the subcapsular region around the liver with an the ascites (4:157). No other focal hepatic lesion or biliary ductal dilatation is present. PANCREAS: Unremarkable. SPLEEN: Unremarkable. ADRENAL GLANDS: Unremarkable. KIDNEYS AND URETERS: The kidneys are normal in size, shape, and attenuation. 2 large simple cysts are present in the left kidney, 3.2 and 3.5 cm in size, with a 6 mm hypodensity in the right kidney, also probably a cyst but indeterminate because of its small size. No hydronephrosis, hydroureter, or calculi seen. No perinephric stranding. BLADDER: Unremarkable. GASTROINTESTINAL TRACT: Patient status post gastric sleeve. The small and large bowel are unremarkable. The appendix is not seen but there is no evidence of appendicitis. Rounded rim calcified soft tissue density anterior to the transverse colon seen previously most likely an avulsed epiploic appendage (4:541). ABDOMINAL WALL: Small inguinal hernias present containing only fat. Air in the right anterior abdominal wall most likely secondary to recent surgery. LYMPH NODES: No retroperitoneal lymphadenopathy. VASCULAR: Marked calcific plaque in the aorta and iliofemoral vessels without aneurysm. PELVIC VISCERA: Prostate and seminal vesicles are OSSEOUS STRUCTURES: Marked degenerative changes present in the spine most marked at L4/L5 and L5-S1. CT/CT abdomen pelvis w con IMPRESSION: 1. Postop abscess in gallbladder fossa. This should be amenable to percutaneous drainage. 2. Other incidental findings as described above. This critical result was discussed with Dr. Kevin at 9:45 PM on the day of the exam and it was ascertained that the content and urgency of the report was understood at the time of direct communication. Fleischner guidelines were followed.
--- NOTE | ~2021-07-30 | CT_ITS ---
PROCEDURE: CT GUIDED DRAINAGE, PERITONEAL ABSCESS CLINICAL INFORMATION: Post lap cholecystectomy with gas and fluid collection the gallbladder fossa. COMPARISON: CT abdomen 07/30/2021 TECHNIQUE: Following explaining CT fluoroscopy-guided placement of a drainage catheter within the gallbladder fossa drain abscess procedure, benefits and risk, a written consent was obtained. Patient was placed supine on CT fluoroscopy table and coronary CT imaging was obtained through the upper abdomen. Lead markers were placed along the lateral abdomen and optimal site was selected and marked on the skin. The marked site was cleaned and draped in usual sterile manner. 1% lidocaine was injected puncture site. Through a small skin incision a long 5 Burkinan Yueh catheter was advanced into the gallbladder fossa abscess under fluoroscopy. After observing pus return, stylet was withdrawn and 0.035 J-wire was introduced and 5 Burkinan sheath removed. A 8.5 Burkinan APD catheter with stiffener was advanced over the guidewire into the right gallbladder fossa collection. The guidewire and the stiffener was removed and pigtail was formed up emptying to thrive. Imaging was performed during the entire exam confirming catheter position within the abscess. The catheter was then anchored to the skin with 3-0 nylon nonabsorbable sutures. The catheter was connected to suction bulb/suction bulb via a connecting cannula. Pressure dressing was applied postprocedure. Patient on procedure extremely well. Conscious sedation was administered during the exam and patient monitored by our nurse and radiologist. This CT examination was performed using dose optimization techniques as appropriate, variously including the following: *Automated exposure control *Adjustment of mA and/or kV according to patient size (this includes techniques or standardized protocols for targeted exams where dose is matched to indication/reason for exam; i.e. extremities or head) *Use of iterative reconstruction technique DLP: 247 mGy-cm FINDINGS: On preliminary CT imaging there is gas and fluid collection seen within the gallbladder fossa with significant fat stranding consistent with inflammatory changes and probable abscess. Fluoroscopy-guided placement of 8.5 Burkinan APD catheter within the gallbladder fossa. CT/CT drain peritoneum IMPRESSION: Successful CT fluoroscopy-guided placement of 8.5 Burkinan APD catheter within the gallbladder fossa for abscess drainage. There was approximately 10 mL of pus seen within the suction bag/grenade. The pus collected was sent to microbiology for culture, sensitivity, Gram stain and non anaerobic evaluation.
--- NOTE | 2021-07-30 14:03 | ED_ITS ---
HPI - Abdominal Pain General Chief Complaint: Abdominal Pain Stated Complaint: ABD PAIN X 2-3 DAYS Time Seen by Provider: 07/30/21 14:02 Source: patient Mode of arrival: EMS Limitations: no limitations History of Present Illness HPI narrative: 71-year-old male past medical history significant for hypertension, diabetes, elevated transaminases, paroxysmal a flutter and atrial fibrillation, status post laparoscopic cholecystectomy on 07/23/2021 presenting to the emergency department with severe right upper quadrant pain x3 days progressively worsening. Patient tells me that he rates his pain at 15/10, he states it hurts even when he moves, he is coming from [facility]. He tells me he is peeing and pooping okay. And his only complaint is abdominal pain. He denies fevers, chills, nausea, vomiting, diarrhea, chest pain, shortness of breath. Patient states he is eating well MD elicited complaint: abdominal pain Pertinent past history: other (Status post lap lis 7 days ago) Onset (ago): day(s) (3) Pain Consistency: constant Location: RUQ Severity: severe Pain scale (0-10): 15 Quality: stabbing Radiation: none Migration to: no migration Exacerbating factors: movement Relieving factors: nothing Context: other (recent lap lis ) Associated symptoms: denies other symptoms Related Data Home Medications Medication Instructions Recorded Confirmed donepezil 10 mg tablet 1 tab PO DAILY 07/12/21 07/13/21 empagliflozin 25 mg tablet 1 tab PO DAILY 07/12/21 07/13/21 (Jardiance) ezetimibe 10 mg-simvastatin 80 mg 1 tab PO BEDTIME 07/12/21 07/13/21 tablet glimepiride 4 mg tablet 1 tab PO BID 07/12/21 07/13/21 insulin aspart U-100 100 unit/mL See Protocol 07/12/21 07/13/21 (3 mL) subcutaneous pen (Novolog Flexpen U-100 Insulin aspart) insulin glargine U-300 conc 300 49 unit SUBCUT DAILY 07/12/21 07/13/21 unit/mL (1.5 mL) subcutaneous pen (Toujeo SoloStar U-300 Insulin) pantoprazole 40 mg tablet,delayed 1 tab PO DAILY 07/12/21 07/13/21 release ascorbic acid (vitamin C) 500 mg 250 mg PO DAILY 07/13/21 07/13/21 tablet (Vitamin C) calcium carbonate 500 mg calcium 1,000 mg PO BID 07/13/21 07/13/21 (1,250 mg) tablet (Calcium 500) cholecalciferol (vitamin D3) 25 25 mcg PO DAILY 07/13/21 07/13/21 mcg (1,000 unit) tablet (Vitamin D3) cyanocobalamin (vitamin B-12) 1,000 mcg PO DAILY 07/13/21 07/13/21 1,000 mcg tablet duloxetine 60 mg capsule,delayed 60 mg PO BID 07/13/21 07/13/21 release losartan 50 mg tablet 1 tab PO DAILY 07/13/21 07/13/21 memantine 10 mg tablet 10 mg PO BID 07/13/21 07/13/21 metoprolol succinate 50 mg 1 tab PO DAILY 07/13/21 07/13/21 tablet,extended release 24 hr Previous Rx's Medication Instructions Recorded apixaban 5 mg tablet (Eliquis) 5 mg PO BID #60 tab 07/26/21 cefuroxime axetil 500 mg tablet 500 mg PO BID #20 tab 07/26/21 metronidazole 500 mg tablet 500 mg PO Q8H #30 tab 07/26/21 oxycodone 5 mg tablet 5 mg PO Q8H PRN #9 tab 07/26/21 Allergies Allergy/AdvReac Type Severity Reaction Status Date / Time No Known Allergies Allergy Verified 06/20/21 22:50 Review of Systems Review of Systems Constitutional : No Weight loss, No Fever, No Chills, No Fatigue, No Malaise ENT/Mouth : No sore throat, No Rhinorrhea Eyes: No Eye Pain, No Swelling, No Redness Cardiovascular : No Chest Pain, No SOB, No Dyspnea on Exertion, No Orthopnea, No Edema, No Palpitations Respiratory : No Cough, No Sputum, No Wheezing Gastrointestinal : No Nausea, No Vomiting, No Diarrhea, No Constipation, + abdominal Pain, No Hematochezia, No Melena Genitourinary : No Dysuria, No Urinary Frequency, No Hematuria, Musculoskeletal : No joint pain, No Myalgias, No Joint Swelling Skin : No Skin Lesions, No rash Neuro : No Weakness, No Numbness, No Dizziness, No Headache All other systems reviewed and are negative Yes all other systems are reviewed and are negative Physical Exam Vital Signs: Vital Signs: Last Vital Signs Temp 98 F 07/30/21 14:19 Pulse 77 07/30/21 18:10 Resp 14 07/30/21 18:10 BP 144/73 H 07/30/21 18:10 Pulse Ox 92 07/30/21 18:10 BMI result Body Mass Index 31.6 VSS Appearance: Alert.? Oriented X3.? No acute distress.? Head: Normocephalic, atraumatic, no step-offs or deformities Eyes: Pupils equal, round and reactive to light.? ENT: Pharynx normal.? Neck: Normal inspection.? Neck supple.? CVS: Normal heart rate and rhythm.? Pulses normal.? Respiratory: No respiratory distress.? Breath sounds normal.? Abdomen: Soft and +tenderness to RUQ,RLQ and epigastric region incisions clean dry and intact. .? Skin: Skin warm and dry.? Normal skin color.? Normal skin turgor.? Extremities: No lower extremity edema.? No calf ttp. 5/5 strength to bilateral upper and lower extremities Back: No midline tenderness, no C-spine tenderness, full range of motion, no CVA tenderness bilaterally Neuro: Oriented X 3.? No motor deficit.? No sensory deficit. Course Reevaluation(s) Reevaluation #1: Delay in patient's labs secondary to patient being a very tough stick. Time: 15:00 Reevaluation #2: Labs recieved at 1800- not 1523 as stated on the EMR. Tech printed stickers at 1523 but didnt draw labs until 1800. At this time 1832 infection is suspected. Blood cultures, lactic, fluids and Zosyn have been ordered. I have discussed this case with Dr. Kevin will review patient's CT scan. Time: 18:41 Reevaluation #3: Lactic acid 1.6. Cultures drawn. Patient currently being given Zosyn. CT of the abdomen is pending. Time: 20:36 Additional Reevaluation(s): [address] Kevin whoh saw a collection in his gallbladder fossa on CT. Recommends patient be addmitted to the hospital she states she will come in to evaluate patient. Will reach out to hospitalist for admission. MDM - Abdominal Pain MDM Narrative Medical decision making narrative: 1400 71-year-old male past medical history significant for hypertension, diabetes, paroxysmal AFib/flutter status post laparoscopic cholecystectomy on July 23 2021 presenting to the emergency department with 3 days of constant severe right upper quadrant pain. Patient states he has been eating and drinking well, having normal bowel movements. Denies fevers or chills, shortness of breath or chest pain. Upon physical examination there is tenderness to the right upper quadrant, right lower quadrant and epigastric region. Incision sites are clean dry and intact. S1-S2 appreciated. Regular rate and rhythm. Lungs are clear. No focal neuro deficits. Plan at this time is to obtain basic labs, and consult surgery. Medical Records Attestation: I reviewed the patient's medical records. Lab Data Attestation: I reviewed the patient's lab results. Result diagrams: 07/30/21 17:45 07/30/21 17:45 Labs: Lab Results 07/30/21 07/30/21 07/30/21 Range/Units 15:23 17:45 17:45 WBC 18.0 H (4.8-10.8) X10*3/uL RBC 5.25 (4.60-5.80) X10*6/uL Hgb 15.3 (14.0-18.0) g/dl Hct 47.1 (42.0-52.0) % MCV 89.7 (80.0-98.0) fL MCH 29.1 (27.0-33.0) pg MCHC 32.5 (31.0-36.0) g/dl RDW 14.6 (11.0-16.0) % Plt Count 334 (160-400) X10*3/uL MPV 10.7 (9.4-12.4) fL Immature Gran % (Auto) 1.3 H (0.0-0.4) % Neut % (Auto) 75.0 H (45-73) % Lymph % (Auto) 14.2 L (20-40) % Bartholomew % (Auto) 8.3 (2-11) % Eos % (Auto) 0.7 (0-4) % Baso % (Auto) 0.5 (0-2) % Lymph # (Auto) 2.6 (1.2-4.9) X10*3/uL Bartholomew # (Auto) 1.5 H (0.1-1.2) X10*3/uL Eos # (Auto) 0.1 (0.0-0.4) X10*3/uL Baso # (Auto) 0.1 (0.0-0.2) X10*3/uL Abs Immat Gran (auto) 0.23 H (0.00-0.03) X10*3/uL Absolute Neuts (auto) 13.5 H (2.0-8.3) x10*3/uL Absolute Nucleated RBC 0.000 (0.0-0.012) X10*3/uL Nucleated RBC % (auto) 0.0 (0.0-0.2) /100WBC Sodium 139 (135-145) mmol/L Potassium 4.1 (3.3-5.1) mmol/L Chloride 102 (96-108) mmol/L Carbon Dioxide 25 (22-29) mmol/L Anion Gap 16 (12-20) BUN 15 (9-16) mg/dL Creatinine 0.98 (0.5-1.4) mg/dL Estim Creat Clear Calc 80.7 Estimated GFR > 60 Random Glucose 244 H (60-115) mg/dL Lactic Acid (0.5-2.0) mmol/L Calcium 8.7 (8.4-10.2) mg/dL Magnesium 2.3 (1.6-2.6) mg/dL Total Bilirubin 0.9 (0.0-1.0) mg/dL AST 23 (5-37) U/L ALT 26 (0-40) U/L Alkaline Phosphatase 589 H D (39-117) U/L Total Protein 6.5 (6.5-8.0) g/dL Albumin 3.4 L (3.5-5.0) g/dL Lipase 23 (8-78) U/L COVID-19 ([facility]) Negative (Negative) COVID-19 Clin Com See Note 07/30/21 Range/Units 19:39 WBC (4.8-10.8) X10*3/uL RBC (4.60-5.80) X10*6/uL Hgb (14.0-18.0) g/dl Hct (42.0-52.0) % MCV (80.0-98.0) fL MCH (27.0-33.0) pg MCHC (31.0-36.0) g/dl RDW (11.0-16.0) % Plt Count (160-400) X10*3/uL MPV (9.4-12.4) fL Immature Gran % (Auto) (0.0-0.4) % Neut % (Auto) (45-73) % Lymph % (Auto) (20-40) % Bartholomew % (Auto) (2-11) % Eos % (Auto) (0-4) % Baso % (Auto) (0-2) % Lymph # (Auto) (1.2-4.9) X10*3/uL Bartholomew # (Auto) (0.1-1.2) X10*3/uL Eos # (Auto) (0.0-0.4) X10*3/uL Baso # (Auto) (0.0-0.2) X10*3/uL Abs Immat Gran (auto) (0.00-0.03) X10*3/uL Absolute Neuts (auto) (2.0-8.3) x10*3/uL Absolute Nucleated RBC (0.0-0.012) X10*3/uL Nucleated RBC % (auto) (0.0-0.2) /100WBC Sodium (135-145) mmol/L Potassium (3.3-5.1) mmol/L Chloride (96-108) mmol/L Carbon Dioxide (22-29) mmol/L Anion Gap (12-20) BUN (9-16) mg/dL Creatinine (0.5-1.4) mg/dL Estim Creat Clear Calc Estimated GFR Random Glucose (60-115) mg/dL Lactic Acid 1.6 (0.5-2.0) mmol/L Calcium (8.4-10.2) mg/dL Magnesium (1.6-2.6) mg/dL Total Bilirubin (0.0-1.0) mg/dL AST (5-37) U/L ALT (0-40) U/L Alkaline Phosphatase (39-117) U/L Total Protein (6.5-8.0) g/dL Albumin (3.5-5.0) g/dL Lipase (8-78) U/L COVID-19 ([facility]) (Negative) COVID-19 Clin Com Critical Care Time Critical Care Time Critical Care Time: Yes Total Critical Care Time: 40 Attestation: I attest to this time spent taking care of the patient, reviewing labs, imaging, chart review and speaking to specialist. Discharge Plan Discharge Clinical Impression: Post-op pain, Abdominal pain Patient Disposition: Admitted As Inpatient Prescriptions: No Action donepezil 10 mg tablet 1 tab PO DAILY RF: 0 glimepiride 4 mg tablet 1 tab PO BID RF: 0 insulin aspart U-100 [Novolog Flexpen U-100 Insulin] 100 unit/mL (3 mL) insulin pen See Protocol RF: 0 ezetimibe-simvastatin 10-80 mg tablet 1 tab PO BEDTIME RF: 0 Jardiance 25 mg tablet 1 tab PO DAILY RF: 0 Toujeo SoloStar U-300 Insulin 300 unit/mL (1.5 mL) insulin pen 49 unit subcut DAILY RF: 0 pantoprazole 40 mg tablet,delayed release (DR/EC) 1 tab PO DAILY RF: 0 losartan 50 mg tablet 1 tab PO DAILY RF: 0 metoprolol succinate 50 mg tablet extended release 24 hr 1 tab PO DAILY RF: 0 duloxetine 60 mg capsule,delayed release(DR/EC) 60 mg PO BID RF: 0 cyanocobalamin (vitamin B-12) 1,000 mcg Tablet 1,000 mcg PO DAILY RF: 0 calcium carbonate [Calcium 500] 500 mg calcium (1,250 mg) Tablet 1,000 mg PO BID RF: 0 ascorbic acid (vitamin C) [Vitamin C] 500 mg Tablet 250 mg PO DAILY RF: 0 cholecalciferol (vitamin D3) [Vitamin D3] 25 mcg (1,000 unit) Tablet 25 mcg PO DAILY RF: 0 memantine 10 mg tablet 10 mg PO BID RF: 0 Eliquis 5 mg Tablet 5 mg PO BID Qty: 60 RF: 0 metronidazole 500 mg Tablet 500 mg PO Q8H Qty: 30 RF: 0 cefuroxime axetil 500 mg tablet 500 mg PO BID Qty: 20 RF: 0 oxycodone 5 mg tablet 5 mg PO Q8H PRN (Reason: pain) Qty: 9 RF: 0 PMFSH Past Medical History Attestation statement: The following information was validated with the patient. 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
[2021-07-30 14:19] VITALS: BP 140/70; PULSE 74; PULSE 76; RESP 18; TEMP 36.6; O2SAT 96; O2SAT 98; BMI 31.6
[2021-07-30 16:41] LABS: COVID-19 Test Negative (Negative); IDNOW Serial# 9DD0AD1C
[2021-07-30 18:01] LABS: MANUAL DIFF FLAG NO
[2021-07-30 18:10] VITALS: BP 144/73; PULSE 77; RESP 14; O2SAT 92
[2021-07-30 18:16] LABS: Basophils Absolute Auto 0.1 X10*3/uL (0.0-0.2); Basophils Percent Auto 0.5 % (0-2); Eosinophils Absolute Auto 0.1 X10*3/uL (0.0-0.4); Eosinophils Percent Auto 0.7 % (0-4); Hematocrit 47.1 % (42.0-52.0); Hemoglobin 15.3 g/dl (14.0-18.0); Imm Gran Abs Auto 0.23 X10*3/uL (0.00-0.03); Imm Gran Pct Auto 1.3 % (0.0-0.4); Lymphocytes Absolute Auto 2.6 X10*3/uL (1.2-4.9); Lymphocytes Percent Auto 14.2 % (20-40); Mean Corpuscular HGB Conc 32.5 g/dl (31.0-36.0); Mean Corpuscular Hemoglobin 29.1 pg (27.0-33.0); Mean Corpuscular Volume 89.7 fL (80.0-98.0); Mean Platelet Volume 10.7 fL (9.4-12.4); Monocytes Absolute Auto 1.5 X10*3/uL (0.1-1.2); Monocytes Percent Auto 8.3 % (2-11); Neutrophils Absolute Auto 13.5 x10*3/uL (2.0-8.3); Platelet Count 334 X10*3/uL (160-400); Red Blood Count 5.25 X10*6/uL (4.60-5.80); Red Cell Distribution Width 14.6 % (11.0-16.0)
[2021-07-30 18:19] LABS: Alanine Aminotransferase 26 U/L (0-40); Albumin Level 3.4 g/dL (3.5-5.0); Alkaline Phosphatase 589 U/L (39-117); Anion Gap 16 (12-20); Aspartate Amino Transferase 23 U/L (5-37); Bilirubin Total 0.9 mg/dL (0.0-1.0); Blood Urea Nitrogen 15 mg/dL (9-16); Calcium 8.7 mg/dL (8.4-10.2); Carbon Dioxide 25 mmol/L (22-29); Chloride 102 mmol/L (96-108); Creatinine Clr Calc Pharmacy 80.7; Estimated Glomerular Filt Rate > 60; Glucose Random 244 mg/dL (60-115); Magnesium 2.3 mg/dL (1.6-2.6); Potassium 4.1 mmol/L (3.3-5.1); Sodium 139 mmol/L (135-145); Total Protein 6.5 g/dL (6.5-8.0)
[2021-07-30] MEDS: 0.9 % Sodium Chloride 1,000 ML 999 ML IV (19:48)
[2021-07-30] MEDS: oxyCODONE HCl Immed Release 5 MG TABLET PO (19:49)
[2021-07-30] MEDS: Piperacillin Sodium/Tazobactam 3.375 GM in 0.9 % Sodium Chloride 50 ML IV (19:49)
[2021-07-30 19:57] LABS: Lactic Acid 1.6 mmol/L (0.5-2.0)
[2021-07-30] MEDS: iohexoL 350 MG/ML 100 ML INFUS..BTL IV (20:16)
[2021-07-30 21:45] LABS: Lipase 23 U/L (8-78)
--- NOTE | 2021-07-30 22:14 | P.HPGS_ITS ---
History of Present Illness History of Present Illness Date of Service: 07/30/21 Chief complaint: ABD PAIN X 2-3 DAYS Narrative: Vinod Rojas is a 71 year old male who is 8 days post laparoscopic cholecystectomy for acute cholecystitis, discharged 4 days ago, presenting to the emergency department with a 2-3 day history of worsening right upper quadrant abdominal pain. He does not report fever, chills, diarrhea, nausea or vomiting. He is hungry. He reports that the pain is different from the pain he had prior to cholecystectomy and immediately afterward. He described the pain as severe, worsened by movement and by trying to stand up straight. During his recent admission, blood cultures were positive for E coli and Clostridium perfringens. He was treated in the hospital with Rocephin and metronidazole and was discharged on cefuroxime and metronidazole. laboratory studies in the emergency [place] [address] and an alkaline phosphatase of 589. Transaminases and total bilirubin were normal. CT scan of the abdomen and pelvis was obtained and demonstrated a complex collection in the gallbladder fossa. Results discussed with the radiologist, Dr. Montague. Review of Systems Constitutional: Constitutional: Denies chills, Denies headache(s) and Denies poor appetite Eyes: Eyes: Reports requires corrective lenses ENT: Denies headache(s) Cardiovascular: Cardiovascular: Denies chest pain, Denies palpitations and Reports dyspnea ( due to current abdominal pain) Respiratory: Respiratory: Denies cough, Reports dyspnea ( due to current abdominal pain) and Denies wheezing Gastrointestinal: Gastrointestinal: Reports abdominal pain, Denies hematochezia, Denies change in bowel habits, Denies nausea and Denies vomiting Genitourinary: Genitourinary: Denies dysuria, Denies nocturia and Denies urinary frequency Musculoskeletal: Musculoskeletal: Reports no additional musculoskeletal complaints Integumentary/Breasts: Skin/Breast: Denies pruritus and Denies rash Neurologic: Denies headache(s), Reports memory loss and Denies convulsions Psychiatric: Psychiatric: Reports memory loss Endocrine: Endocrine: Denies palpitations Hematologic/Lymphatic: Hematologic/Lymphatic: Denies easy bleeding Comments: on Eliquis Allergic/Immunologic: Allergic/Immunologic: Denies wheezing PMFSH Past Medical History Medical History Diabetes Sleep apnea Family History Family History Father CAD (coronary artery disease) Sister CAD (coronary artery disease) Surgical History Surgical History History of quadruple bypass History of Shaw[place]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 Social History Social History Household Members: None Housing: Apartment Do you presently have visiting nurse or other home services: No Alcohol intake: former Patient Tobacco Use Status: Current everyday Tobacco user Tobacco use type: Smokeless Tobacco Use of substances other than those prescribed or required for medical reasons: No Substance Use Type: Other Advance Directives: No Advance Directives Information Provided: Yes service: No Current occupational status: retired [employer] Allergies Allergy/AdvReac Type Severity Reaction Status Date / Time No Known Allergies Allergy Verified 06/20/21 22:50 Active Medications: Current Medications Pharmacy Consult (Consult Rx Perform Med Rec) 1 each MISCELLANE ONCE PRN PRN Reason: Consult order Home Medications Medication Instructions Recorded Confirmed Last Taken Type donepezil 10 mg tablet 1 tab PO DAILY 07/12/21 07/13/21 07/12/21 History empagliflozin 25 mg tablet 1 tab PO DAILY 07/12/21 07/13/21 07/12/21 History (Jardiance) ezetimibe 10 mg-simvastatin 80 mg 1 tab PO BEDTIME 07/12/21 07/13/21 07/12/21 History tablet glimepiride 4 mg tablet 1 tab PO BID 07/12/21 07/13/21 07/12/21 History insulin aspart U-100 100 unit/mL See Protocol 07/12/21 07/13/21 07/12/21 History (3 mL) subcutaneous pen (Novolog Flexpen U-100 Insulin aspart) insulin glargine U-300 conc 300 49 unit SUBCUT DAILY 07/12/21 07/13/21 07/12/21 History unit/mL (1.5 mL) subcutaneous pen (Toujeo SoloStar U-300 Insulin) pantoprazole 40 mg tablet,delayed 1 tab PO DAILY 07/12/21 07/13/21 07/12/21 History release ascorbic acid (vitamin C) 500 mg 250 mg PO DAILY 11/07/13/21 07/12/21 History tablet (Vitamin C) calcium carbonate 500 mg calcium 1,000 mg PO BID 07/13/21 07/13/21 07/12/21 History (1,250 mg) tablet (Calcium 500) cholecalciferol (vitamin D3) 25 25 mcg PO DAILY 07/13/21 07/13/21 07/12/21 History mcg (1,000 unit) tablet (Vitamin D3) cyanocobalamin (vitamin B-12) 1,000 mcg PO DAILY 07/13/21 07/13/21 07/12/21 History 1,000 mcg tablet duloxetine 60 mg capsule,delayed 60 mg PO BID 07/13/21 07/13/21 07/12/21 History release losartan 50 mg tablet 1 tab PO DAILY 07/13/21 07/13/21 07/12/21 History memantine 10 mg tablet 10 mg PO BID 07/13/21 07/13/21 Unknown History metoprolol succinate 50 mg 1 tab PO DAILY 07/13/21 07/13/21 07/12/21 History tablet,extended release 24 hr Physical Exam Vital Signs: Vital Signs: Last Vital Signs Temp 98 F 07/30/21 14:19 Pulse 77 07/30/21 18:10 Resp 14 07/30/21 18:10 BP 144/73 H 07/30/21 18:10 Pulse Ox 92 07/30/21 18:10 BMI result Body Mass Index 31.6 Const: General: cooperative, no acute distress and alert HENMT: Head: Yes normocephalic and Yes atraumatic Eyes: General: appearance normal, both eyes and all related structures Resp: Effort & Inspection: normal respiratory effort Auscultation: clear to auscultation bilaterally Cardio: Rate: regular rate Rhythm: regular rhythm GI: Other: round, soft, recent trocar incisions right upper quadrant and supraumbilical area are clean and appear to be healing well, no palpable masses, normoactive bowel sounds, marked right upper quadrant tenderness, no rebound Rectal Exam - Male: Yes deferred Skin: Other: warm and dry General skin exam: no rashes or lesions noted Extrem: General: Yes normal to inspection Results Results Labs: Short CBC 07/30/21 Range/Units 17:45 WBC 18.0 H (4.8-10.8) X10*3/uL Hgb 15.3 (14.0-18.0) g/dl Hct 47.1 (42.0-52.0) % Plt Count 334 (160-400) X10*3/uL BMP 07/30/21 17:45 Sodium 139 Potassium 4.1 Chloride 102 Carbon Dioxide 25 BUN 15 Creatinine 0.98 Calcium 8.7 Liver Function 07/30/21 Range/Units 17:45 Total Bilirubin 0.9 (0.0-1.0) mg/dL AST 23 (5-37) U/L ALT 26 (0-40) U/L Alkaline Phosphatase 589 H D (39-117) U/L Albumin 3.4 L (3.5-5.0) g/dL Abdomen CT scan report/results: report reviewed and image reviewed CT scan - pelvis: report reviewed and image reviewed Assessment and Plan (1) Postoperative intra-abdominal abscess: Status: Acute (2) S/P laparoscopic cholecystectomy: Status: Acute 71-year-old male 8 days post laparoscopic cholecystectomy presenting with increasing right upper quadrant pain and findings consistent with postoperative abscess in the gallbladder fossa. Prior to cholecystectomy, he had positive blood cultures growing E coli and Clostridium perfringens. He will be covered for these with Zosyn. He has a history atrial fibrillation and has been chronically anticoagulated on Eliquis. Eliquis will be held pending a decision regarding percutaneous drainage of the abscess. He has a history of diabetes mellitus. Blood sugars will be followed and sliding scale coverage will be provided initially if needed. hospitalist consultation will be requested for assistance with medical management. Quality Stroke Does the patient have a stroke diagnosis?: No VTE Prior VTE?: No VTE Risk Level:: Surgical - high VTE Device Contraindication: N/A - Device Ordered VTE Drug Contraindication: Treatment Not Indicated ( interventional procedure planned) Procedures Date of Service Date of Service: 07/30/21
[2021-07-30 22:52] LABS: Glucose, Whole Blood 138 mg/dL (60-115)
--- NOTE | 2021-07-30 22:52 | PHA.MEDREC ---
Addendum entered by Malu Blanco [facility] 07/31/21 09:57: CONTACTED PATIENTS DAUGHTER KENDRICK AND SHE CONFIRMED THE BRILINTA WAS STOPPED Original Note: med rec complete, follow up in AM with patients daughter to confirm. Pharmacy Consult ? Medication Reconciliation Pharmacy has completed the medication reconciliation.
[2021-07-31] VITALS (7 sets, daily range): BP systolic 157–175; BP diastolic 60–91; PULSE 67–86; RESP 15–18; TEMP 36.1–37.4; O2SAT 91–98
[2021-07-31] MEDS: Piperacillin Sodium/Tazobactam 3.375 GM in 0.9 % Sodium Chloride 50 ML IV ×4 (02:45→21:12)
[2021-07-31 05:50] LABS: Hematocrit 44.2 % (42.0-52.0); Hemoglobin 14.3 g/dl (14.0-18.0); Mean Corpuscular HGB Conc 32.4 g/dl (31.0-36.0); Mean Corpuscular Hemoglobin 29.1 pg (27.0-33.0); Mean Corpuscular Volume 89.8 fL (80.0-98.0); Mean Platelet Volume 10.8 fL (9.4-12.4); Platelet Count 279 X10*3/uL (160-400); Red Blood Count 4.92 X10*6/uL (4.60-5.80); Red Cell Distribution Width 14.6 % (11.0-16.0); White Blood Count 14.2 X10*3/uL (4.8-10.8)
[2021-07-31 06:13] LABS: Anion Gap 16 (12-20); Blood Urea Nitrogen 13 mg/dL (9-16); Carbon Dioxide 21 mmol/L (22-29); Chloride 107 mmol/L (96-108); Creatinine Clr Calc Pharmacy 104.1; Estimated Glomerular Filt Rate > 60; Glucose Fasting 95 mg/dL (60-99); Potassium 3.9 mmol/L (3.3-5.1); Sodium 140 mmol/L (135-145)
[2021-07-31] MEDS: Lactated Ringers 1,000 ML 80 ML IVCONT ×2 (06:39→21:12)
[2021-07-31 07:19] LABS: Glucose, Whole Blood 117 mg/dL (60-115)
--- NOTE | 2021-07-31 08:15 | HO.PM.IMCN ---
History of Present Illness Data of Consult Service Date: 07/31/21 Requesting physician: Tawana Kevin Primary Care Provider: Unknown Physician HPI Reason for consult: Medical Managment 71-year-old man presenting to the ER with worsening right upper quadrant pain. He is status post 8 days laparoscopic cholecystectomy. He had blood cultures growing E coli and Clostridium perfringens. He was discharged with Ceftin and Flagyl To rehab. He was seen in the ER by General surgery and was admitted and will likely have a percutaneous drain placed. In the ER he was noted to have an elevated white blood cell count of 18.0, no fever, elevated blood pressure. He was started on IV Zosyn and IV fluids. Medical consultation was placed for medical management. 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 If so, by whom?: No Do you feel safe in your current relationship?: No Current Relationship Is there a partner from a previous relationship who is making you feel unsafe now?: No Are you made to feel afraid or neglected: No Advance Directives: No Advance Directives Information Provided: Yes Do you have thoughts of harming others: None Do you have a plan to hurt others: No Plan Recently lost weight without trying: No Nutrition Risks: No Nutritional Risk service: No Current occupational status: retired Meds Allergies Allergy/AdvReac Type Severity Reaction Status Date / Time No Known Allergies Allergy Verified 06/20/21 22:50 Active Medications: Current Medications Acetaminophen (Acetaminophen 325 Mg Tablet) 650 mg PO Q6H PRN PRN Reason: Fever Atorvastatin Calcium (Atorvastatin Calcium 40 Mg Tablet) 40 mg PO BEDTIME [facility] Donepezil HCl (Donepezil Hcl 10 Mg Tablet) 10 mg PO DAILY [facility] Duloxetine HCl (Duloxetine Hcl 60 Mg Capsule.) 60 mg PO DAILY [facility] Ezetimibe (Ezetimibe 10 Mg Tablet) 10 mg PO BEDTIME [facility]IAM Piperacillin Sod/Tazobactam (Sod 3.375 gm/ Sodium Chloride) 50 mls @ 100 mls/hr IV Q6H [facility] Last Infusion: 07/31/21 05:06 Dose: Infused Documented by: Lactated Ringer's (Lr) 1,000 mls @ 80 mls/hr IVCONT .[id number] [facility] Last Admin: 07/31/21 06:39 Dose: 80 mls/hr Documented by: Losartan Potassium (Losartan Potassium 50 Mg Tablet) 50 mg PO DAILY [facility]; Protocol Memantine (Memantine Hcl 10 Mg Tablet) 10 mg PO DAILY [facility] Metoprolol Succinate (Metoprolol Succinate Er 50 Mg Tab.Er.24h) 50 mg PO DAILY [facility]; Protocol Morphine Sulfate (Morphine Sulfate 4 Mg/Ml Cartridge) 4 mg IVPUSH Q3H PRN; Protocol PRN Reason: Pain, severe Omeprazole (Omeprazole 20 Mg Capsule.) 20 mg PO DAILY [facility] Ondansetron HCl (Ondansetron Hcl 4 Mg/2 Ml Vial) 4 mg IVPUSH Q8H PRN PRN Reason: Nausea Oxycodone HCl (Oxycodone Hcl Immed Release 5 Mg Tablet) 5 mg PO Q4H PRN PRN Reason: Pain, Moderate (Pain Scale 4-6 Pharmacy Consult (Consult Rx Perform Med Rec) 1 each MISCELLANE ONCE PRN PRN Reason: Consult order Home Medications Medication Instructions Recorded Confirmed Last Taken Type donepezil 10 mg tablet 1 tab PO DAILY 07/12/21 07/30/21 07/12/21 History empagliflozin 25 mg tablet 1 tab PO DAILY 07/12/21 07/30/21 07/12/21 History (Jardiance) ezetimibe 10 mg-simvastatin 80 mg 1 tab PO BEDTIME 07/12/21 07/30/21 07/12/21 History tablet glimepiride 4 mg tablet 1 tab PO DAILY 07/12/21 07/30/21 07/12/21 History insulin aspart U-100 100 unit/mL See Protocol SUBCUT QIDACHS PRN 07/12/21 07/30/21 07/12/21 History (3 mL) subcutaneous pen (Novolog Flexpen U-100 Insulin aspart) insulin glargine U-300 conc 300 49 unit SUBCUT DAILY 07/12/21 07/30/21 07/12/21 History unit/mL (1.5 mL) subcutaneous pen (Toujeo SoloStar U-300 Insulin) pantoprazole 40 mg tablet,delayed 1 tab PO DAILY 07/12/21 07/30/21 07/12/21 History release ascorbic acid (vitamin C) 500 mg 250 mg PO DAILY 07/13/21 07/30/21 07/12/21 History tablet (Vitamin C) calcium carbonate 500 mg calcium 1,000 mg PO BID 07/13/21 07/30/21 07/12/21 History (1,250 mg) tablet (Calcium 500) cholecalciferol (vitamin D3) 25 25 mcg PO DAILY 07/13/21 07/30/21 07/12/21 History mcg (1,000 unit) tablet (Vitamin D3) cyanocobalamin (vitamin B-12) 1,000 mcg PO DAILY 07/13/21 07/30/21 07/12/21 History 1,000 mcg tablet duloxetine 60 mg capsule,delayed 60 mg PO BID 07/13/21 07/30/21 07/12/21 History release losartan 50 mg tablet 1 tab PO DAILY 07/13/21 07/30/21 07/12/21 History memantine 10 mg tablet 10 mg PO BID 07/13/21 07/30/21 Unknown History metoprolol succinate 50 mg 1 tab PO DAILY 07/13/21 07/30/21 07/12/21 History tablet,extended release 24 hr Physical Exam Vital Signs and Narrative: Vital Signs: Last Vital Signs Temp 99.3 F 07/31/21 07:14 Pulse 67 07/31/21 07:14 Resp 18 07/31/21 07:14 BP 158/60 H 07/31/21 07:14 Pulse Ox 98 07/31/21 07:14 BMI result Body Mass Index 31.6 Appearing in no acute distress head is normocephalic atraumatic eyes pupils are PERRLA sclera is anicteric mouth throat mucous membranes are intact and moist neck is supple no lymphadenopathy, no JVD noted lung sounds are clear to auscultation heart regular rate rhythm, clear S1, S2 positive bowel sounds, abdomen is soft, nontender neuro patient is alert x3, no focal deficits Results Labs CBC and Chem 7: 07/31/21 05:13 07/31/21 05:13 Labs: Laboratory Results - last 24 hr 07/30/21 07/30/21 07/30/21 15:23 17:45 17:45 MCV 89.7 MCH 29.1 MCHC 32.5 RDW 14.6 Plt Count 334 MPV 10.7 Immature Gran % (Auto) 1.3 H Neut % (Auto) 75.0 H Lymph % (Auto) 14.2 L [place] % (Auto) 8.3 Eos % (Auto) 0.7 Baso % (Auto) 0.5 Lymph # (Auto) 2.6 [place] # (Auto) 1.5 H Eos # (Auto) 0.1 Baso # (Auto) 0.1 Abs Immat Gran (auto) 0.23 H Absolute Neuts (auto) 13.5 H Absolute Nucleated RBC 0.000 Nucleated RBC % (auto) 0.0 Anion Gap 16 Estim Creat Clear Calc 80.7 Estimated GFR > 60 POC Glucose Random Glucose 244 H Fasting Glucose Lactic Acid Calcium 8.7 Magnesium 2.3 Total Bilirubin 0.9 AST 23 ALT 26 Alkaline Phosphatase 589 H D Total Protein 6.5 Albumin 3.4 L Lipase 23 COVID-19 (XIAO) Negative COVID-19 Clin Com See Note 07/30/21 07/30/21 07/31/21 19:39 22:48 05:13 MCV 89.8 MCH 29.1 MCHC 32.4 RDW 14.6 Plt Count 279 MPV 10.8 Immature Gran % (Auto) Neut % (Auto) Lymph % (Auto) [place] % (Auto) Eos % (Auto) Baso % (Auto) Lymph # (Auto) [place] # (Auto) Eos # (Auto) Baso # (Auto) Abs Immat Gran (auto) Absolute Neuts (auto) Absolute Nucleated RBC 0.000 Nucleated RBC % (auto) 0.0 Anion Gap Estim Creat Clear Calc Estimated GFR POC Glucose 138 H Random Glucose Fasting Glucose Lactic Acid 1.6 Calcium Magnesium Total Bilirubin AST ALT Alkaline Phosphatase Total Protein Albumin Lipase COVID-19 (XIAO) COVID-19 Clin Com 07/31/21 07/31/21 05:13 07:12 MCV MCH MCHC RDW Plt Count MPV Immature Gran % (Auto) Neut % (Auto) Lymph % (Auto) [place] % (Auto) Eos % (Auto) Baso % (Auto) Lymph # (Auto) [place] # (Auto) Eos # (Auto) Baso # (Auto) Abs Immat Gran (auto) Absolute Neuts (auto) Absolute Nucleated RBC Nucleated RBC % (auto) Anion Gap 16 Estim Creat Clear Calc 104.1 Estimated GFR > 60 POC Glucose 117 H Random Glucose Fasting Glucose 95 D Lactic Acid Calcium 8.0 L D Magnesium Total Bilirubin AST ALT Alkaline Phosphatase Total Protein Albumin Lipase COVID-19 (XIAO) COVID-19 Clin Com Imaging Radiologist's Impressions: Impressions Abdomen/Pelvis CT 07/30/21 20:47 IMPRESSION: 1. Postop abscess in gallbladder fossa. This should be amenable to percutaneous drainage. 2. Other incidental findings as described above. This critical result was discussed with Dr. Kevin at 9:45 PM on the day of the exam and it was ascertained that the content and urgency of the report was understood at the time of direct communication. Fleischner guidelines were followed. Assessment and Plan (1) Postoperative intra-abdominal abscess: Status: Acute (2) Elevated liver enzymes: Status: Acute (3) Paroxysmal atrial flutter: Status: Acute 71-year-old man admitted by General surgery. He is 8 days status post lap choly presenting with increased right upper quadrant pain, imaging is consistent with postoperative abscess in the gallbladder fossa. was discharged on Ceftin and Flagyl. Gallbladder fossa abscess Right upper quadrant pain Started on IV Zosyn Eliquis will be on hold for possible percutaneous drain Diabetes mellitus Sliding scale, ADA diet Paroxysmal atrial fibrillation Hold Eliquis for possible surgical procedure Continue metoprolol Hypertension. Stable blood pressure Continue losartan DVT prophylaxis with mechanical compression boots Attending Dr. Payton
[2021-07-31] MEDS: Metoprolol Succinate ER 50 MG TAB.ER.24H PO (08:24)
[2021-07-31] MEDS: Memantine HCl 10 MG TABLET PO (08:24)
[2021-07-31] MEDS: Losartan Potassium 50 MG TABLET PO (08:24)
[2021-07-31] MEDS: Donepezil HCl 10 MG TABLET PO (08:24)
[2021-07-31] MEDS: Omeprazole 20 MG CAPSULE.DR PO (08:25)
[2021-07-31] MEDS: DULoxetine HCl 60 MG CAPSULE.DR PO (08:25)
--- NOTE | 2021-07-31 11:20 | P.PNGS_ITS ---
Subjective Subjective Date of Service: 07/31/21 Interval history: still having abdominal pain, worse with movement, but severity diminished from yesterday. No nausea. Physical Exam Vital Signs: Vital Signs: Last Vital Signs Temp 99.3 F 07/31/21 07:14 Pulse 67 07/31/21 08:24 Resp 18 07/31/21 07:14 BP 158/60 H 07/31/21 08:24 Pulse Ox 98 07/31/21 07:14 BMI result Body Mass Index 31.6 Const: Other: Alert, appears comfortable Resp: Effort & Inspection: normal respiratory effort Auscultation: clear to auscultation bilaterally Cardio: Rate: regular rate Rhythm: regular rhythm GI: Other: round, soft, markedly tender central abdomen but area of tenderness appears more localized, no palpable masses Skin: Other: normal color, warm and dry Objective Data Active Medications Acetaminophen (Acetaminophen 325 Mg Tablet) 650 mg PO Q6H PRN PRN Reason: Fever Atorvastatin Calcium (Atorvastatin Calcium 40 Mg Tablet) 40 mg PO BEDTIME REPLACED BY [facility] Dextrose (Dextrose 50 % 25 Gm/50 Ml Vial) 25 gm IVPUSH Q15M PRN; Protocol PRN Reason: per Hypoglycemia Standing Ord. Donepezil HCl (Donepezil Hcl 10 Mg Tablet) 10 mg PO DAILY REPLACED BY [facility] Last Admin: 07/31/21 08:24 Dose: 10 mg Documented by: ONEIDA Duloxetine HCl (Duloxetine Hcl 60 Mg Capsule.Dr) 60 mg PO DAILY REPLACED BY [facility] Last Admin: 07/31/21 08:25 Dose: 60 mg Documented by: ONEIDA Ezetimibe (Ezetimibe 10 Mg Tablet) 10 mg PO BEDTIME REPLACED BY [facility] Glucose (Glucose Gel 15 Gm Gel..Gram.) 15 gm PO Q15M PRN; Protocol PRN Reason: per Hypoglycemia Standing Ord. Piperacillin Sod/Tazobactam (Sod 3.375 gm/ Sodium Chloride) 50 mls @ 100 mls/hr IV Q6H REPLACED BY [facility] Last Infusion: 07/31/21 09:54 Dose: 0 mls/hr Documented by: ONEIDA Lactated Ringer's (Lr) 1,000 mls @ 80 mls/hr IVCONT .[id number] REPLACED BY [facility] Last Admin: 07/31/21 06:39 Dose: 80 mls/hr Documented by: FRANCESCO Insulin Human Lispro (Insulin Lispro 100 Unit/Ml 3 Ml Vial) 0 unit SUBCUT QIDACHS REPLACED BY [facility]; Protocol Losartan Potassium (Losartan Potassium 50 Mg Tablet) 50 mg PO DAILY REPLACED BY [facility]; Protocol Last Admin: 07/31/21 08:24 Dose: 50 mg Documented by: ONEIDA Memantine (Memantine Hcl 10 Mg Tablet) 10 mg PO DAILY REPLACED BY [facility] Last Admin: 07/31/21 08:24 Dose: 10 mg Documented by: ONEIDA Metoprolol Succinate (Metoprolol Succinate Er 50 Mg Tab.Er.24h) 50 mg PO DAILY REPLACED BY [facility]; Protocol Last Admin: 07/31/21 08:24 Dose: 50 mg Documented by: ONEIDA Morphine Sulfate (Morphine Sulfate 4 Mg/Ml Cartridge) 4 mg IVPUSH Q3H PRN; Protocol PRN Reason: Pain, severe Omeprazole (Omeprazole 20 Mg Capsule.Dr) 20 mg PO DAILY REPLACED BY [facility] Last Admin: 07/31/21 08:25 Dose: 20 mg Documented by: ONEIDA Ondansetron HCl (Ondansetron Hcl 4 Mg/2 Ml Vial) 4 mg IVPUSH Q8H PRN PRN Reason: Nausea Oxycodone HCl (Oxycodone Hcl Immed Release 5 Mg Tablet) 5 mg PO Q4H PRN PRN Reason: Pain, Moderate (Pain Scale 4-6 Pharmacy Consult (Consult Rx Perform Med Rec) 1 each MISCELLANE ONCE PRN PRN Reason: Consult order Labs CBC & Chem 7: 07/31/21 05:13 07/31/21 05:13 Labs: Laboratory Results - last 24 hr 07/30/21 07/30/21 07/30/21 15:23 17:45 17:45 MCV 89.7 MCH 29.1 MCHC 32.5 RDW 14.6 Plt Count 334 MPV 10.7 Immature Gran % (Auto) 1.3 H Neut % (Auto) 75.0 H Lymph % (Auto) 14.2 L [place] % (Auto) 8.3 Eos % (Auto) 0.7 Baso % (Auto) 0.5 Lymph # (Auto) 2.6 [place] # (Auto) 1.5 H Eos # (Auto) 0.1 Baso # (Auto) 0.1 Abs Immat Gran (auto) 0.23 H Absolute Neuts (auto) 13.5 H Absolute Nucleated RBC 0.000 Nucleated RBC % (auto) 0.0 Anion Gap 16 Estim Creat Clear Calc 80.7 Estimated GFR > 60 POC Glucose Random Glucose 244 H Fasting Glucose Lactic Acid Calcium 8.7 Magnesium 2.3 Total Bilirubin 0.9 AST 23 ALT 26 Alkaline Phosphatase 589 H D Total Protein 6.5 Albumin 3.4 L Lipase 23 COVID-19 (XIAO) Negative COVID-19 Clin Com See Note 07/30/21 07/30/21 07/31/21 19:39 22:48 05:13 MCV 89.8 MCH 29.1 MCHC 32.4 RDW 14.6 Plt Count 279 MPV 10.8 Immature Gran % (Auto) Neut % (Auto) Lymph % (Auto) [place] % (Auto) Eos % (Auto) Baso % (Auto) Lymph # (Auto) [place] # (Auto) Eos # (Auto) Baso # (Auto) Abs Immat Gran (auto) Absolute Neuts (auto) Absolute Nucleated RBC 0.000 Nucleated RBC % (auto) 0.0 Anion Gap Estim Creat Clear Calc Estimated GFR POC Glucose 138 H Random Glucose Fasting Glucose Lactic Acid 1.6 Calcium Magnesium Total Bilirubin AST ALT Alkaline Phosphatase Total Protein Albumin Lipase COVID-19 (XIAO) COVID-19 Panoratio Com 07/31/21 07/31/21 05:13 07:12 MCV MCH MCHC RDW Plt Count MPV Immature Gran % (Auto) Neut % (Auto) Lymph % (Auto) [place] % (Auto) Eos % (Auto) Baso % (Auto) Lymph # (Auto) [place] # (Auto) Eos # (Auto) Baso # (Auto) Abs Immat Gran (auto) Absolute Neuts (auto) Absolute Nucleated RBC Nucleated RBC % (auto) Anion Gap 16 Estim Creat Clear Calc 104.1 Estimated GFR > 60 POC Glucose 117 H Random Glucose Fasting Glucose 95 D Lactic Acid Calcium 8.0 L D Magnesium Total Bilirubin AST ALT Alkaline Phosphatase Total Protein Albumin Lipase COVID-19 ([facility]IAO) COVID-19 Clin Com Procedures Date of Service Date of Service: 07/31/21 Progress Note: A&P Assessment and plan (1) Postoperative intra-abdominal abscess: Status: Acute (2) S/P laparoscopic cholecystectomy: Status: Acute (3) Diabetes: Status: Acute Assessment and Plan: abscess gallbladder fossa status post laparoscopic cholecystectomy. White blood count is decreasing and he appears symptomatically improved on Zosyn. Have requested CT-guided drainage of the abscess, staff not available at this institution until 08/02/2021. no need for transfer at this time. Continue Zosyn, advance to solid diet. Will continue to hold Eliquis until abscess drainage can be done. Add subcu heparin. Has been evaluated by the hospitalists. Sliding scale insulin coverage ordered. Fall Risk Details Current Medications: Current Medications Acetaminophen (Acetaminophen 325 Mg Tablet) 650 mg PO Q6H PRN PRN Reason: Fever Atorvastatin Calcium (Atorvastatin Calcium 40 Mg Tablet) 40 mg PO BEDTIME [facility] Dextrose (Dextrose 50 % 25 Gm/50 Ml Vial) 25 gm IVPUSH Q15M PRN; Protocol PRN Reason: per Hypoglycemia Standing Ord. Donepezil HCl (Donepezil Hcl 10 Mg Tablet) 10 mg PO DAILY REPLACED BY [facility] Last Admin: 07/31/21 08:24 Dose: 10 mg Documented by: Duloxetine HCl (Duloxetine Hcl 60 Mg Capsule.Dr) 60 mg PO DAILY REPLACED BY [facility] Last Admin: 07/31/21 08:25 Dose: 60 mg Documented by: Ezetimibe (Ezetimibe 10 Mg Tablet) 10 mg PO BEDTIME [facility] Glucose (Glucose Gel 15 Gm Gel..Gram.) 15 gm PO Q15M PRN; Protocol PRN Reason: per Hypoglycemia Standing Ord. Piperacillin Sod/Tazobactam (Sod 3.375 gm/ Sodium Chloride) 50 mls @ 100 mls/hr IV Q6H REPLACED BY [facility] Last Infusion: 07/31/21 09:54 Dose: Infused Documented by: Lactated Ringer's (Lr) 1,000 mls @ 80 mls/hr IVCONT .[id number] REPLACED BY [facility] Last Admin: 07/31/21 06:39 Dose: 80 mls/hr Documented by: Insulin Human Lispro (Insulin Lispro 100 Unit/Ml 3 Ml Vial) 0 unit SUBCUT QIDACHS REPLACED BY [facility]; Protocol Losartan Potassium (Losartan Potassium 50 Mg Tablet) 50 mg PO DAILY [facility]; Protocol Last Admin: 07/31/21 08:24 Dose: 50 mg Documented by: Memantine (Memantine Hcl 10 Mg Tablet) 10 mg PO DAILY REPLACED BY [facility] Last Admin: 07/31/21 08:24 Dose: 10 mg Documented by: Metoprolol Succinate (Metoprolol Succinate Er 50 Mg Tab.Er.24h) 50 mg PO DAILY REPLACED BY [facility]; Protocol Last Admin: 07/31/21 08:24 Dose: 50 mg Documented by: Morphine Sulfate (Morphine Sulfate 4 Mg/Ml Cartridge) 4 mg IVPUSH Q3H PRN; Protocol PRN Reason: Pain, severe Omeprazole (Omeprazole 20 Mg Capsule.Dr) 20 mg PO DAILY REPLACED BY [facility] Last Admin: 07/31/21 08:25 Dose: 20 mg Documented by: Ondansetron HCl (Ondansetron Hcl 4 Mg/2 Ml Vial) 4 mg IVPUSH Q8H PRN PRN Reason: Nausea Oxycodone HCl (Oxycodone Hcl Immed Release 5 Mg Tablet) 5 mg PO Q4H PRN PRN Reason: Pain, Moderate (Pain Scale 4-6 Pharmacy Consult (Consult Rx Perform Med Rec) 1 each MISCELLANE ONCE PRN PRN Reason: Consult order Time Spent With Patient Time: Total time spent is greater than 50% in coordination of care (as documented) at patient's floor/unit and/or counseling patient: Time with patient: 15 - 24 minutes Quality Stroke Does the patient have a stroke diagnosis?: No VTE Prior VTE?: No VTE Risk Level:: Surgical - high VTE Device Contraindication: N/A - Device Ordered VTE Drug Contraindication: Treatment Not Indicated ( interventional procedure planned)
[2021-07-31 11:51] LABS: Glucose, Whole Blood 100 mg/dL (60-115)
[2021-07-31] MEDS: Enoxaparin Sodium 40 MG/0.4 ML SYRINGE SUBCUT (12:07)
--- NOTE | 2021-07-31 13:49 | MHC.CM.PN ---
Addendum entered by Samantha Kay 07/31/21 13:57: CALL TO DAUGHTERKENDRICK ([phone]) [facility] DAUGHTER WOULD PREFER THAT PATIENT BE ABLE TO RETURN HOME BUT IF HE DOES NEED REHAB, SHE MAY WANT TO CHANGE FACILITIES AND WILL DISCUSS WITH PATIENT AT TIME IF REHAB IS RECOMMENDED. Addendum entered by Samantha Kay 07/31/21 13:52: IMM 07/31 IN CHART Original Note: PATIENT LIVES ALONE. HIS HCP/DAUGHTER ASSISTS WITH TRANSPORT AND ADLS. HCP IS ON FILE AND VERIFIED HE IS NOT SURE IF HE HAS VNA OR NOT. PCP IS DR SULLIVAN PATIENT DOES USES O2 AND CPAP. SUPPLIES ARE THROUGH [facility]. CASE MANAGEMENT TO ASK DAUGHTER ABOUYT VNA SERVICES WHEN SHE VISITS. PATIENT DOES HAVE MEALS ON WHEELS THROUGH [facility]
--- NOTE | 2021-07-31 14:14 | MHC.CM.PN ---
ACCORDING TO DAUGHTER, PLAN IS FOR DRAINAGE ON Monday08/02/21 NO PAPERWORK FROM [facility] FOUND IN CHART OR ON UNIT. [facility] LIAISON NOTIFIED VIA [employer]
[2021-07-31 16:25] LABS: Glucose, Whole Blood 198 mg/dL (60-115)
[2021-07-31] MEDS: Insulin Lispro 100 UNIT/ML 3 ML VIAL SUBCUT ×2 (17:24→21:20)
[2021-07-31 20:02] LABS: Glucose, Whole Blood 281 mg/dL (60-115)
[2021-07-31] MEDS: Atorvastatin Calcium 40 MG TABLET PO (21:12)
[2021-07-31] MEDS: Ezetimibe 10 MG TABLET PO (21:12)
[2021-07-31] MEDS: oxyCODONE HCl Immed Release 5 MG TABLET PO (21:19)
[2021-08-01] VITALS (7 sets, daily range): BP systolic 150–179; BP diastolic 80–88; PULSE 58–80; RESP 16–18; TEMP 36–36.6; O2SAT 92–94
[2021-08-01] MEDS: Piperacillin Sodium/Tazobactam 3.375 GM in 0.9 % Sodium Chloride 50 ML IV ×4 (03:02→19:48)
[2021-08-01 05:19] LABS: Hematocrit 43.4 % (42.0-52.0); Hemoglobin 14.1 g/dl (14.0-18.0); Mean Corpuscular HGB Conc 32.5 g/dl (31.0-36.0); Mean Corpuscular Hemoglobin 28.4 pg (27.0-33.0); Mean Corpuscular Volume 87.5 fL (80.0-98.0); Mean Platelet Volume 10.7 fL (9.4-12.4); Platelet Count 302 X10*3/uL (160-400); Red Blood Count 4.96 X10*6/uL (4.60-5.80); Red Cell Distribution Width 14.2 % (11.0-16.0); White Blood Count 12.9 X10*3/uL (4.8-10.8)
[2021-08-01 05:21] LABS: INTERNATIONAL NORM RATIO 1.2 (0.9-1.1); Prothrombin Time 13.8 SEC (9.9-13.0)
[2021-08-01 07:47] LABS: Glucose, Whole Blood 146 mg/dL (60-115)
[2021-08-01] MEDS: Enoxaparin Sodium 40 MG/0.4 ML SYRINGE SUBCUT (08:52)
[2021-08-01] MEDS: Omeprazole 20 MG CAPSULE.DR PO (09:12)
[2021-08-01] MEDS: DULoxetine HCl 60 MG CAPSULE.DR PO (09:12)
[2021-08-01] MEDS: Losartan Potassium 50 MG TABLET PO (09:12)
[2021-08-01] MEDS: Metoprolol Succinate ER 50 MG TAB.ER.24H PO (09:13)
[2021-08-01] MEDS: Donepezil HCl 10 MG TABLET PO (09:13)
[2021-08-01] MEDS: Memantine HCl 10 MG TABLET PO (09:14)
--- NOTE | 2021-08-01 11:25 | P.PNGS_ITS ---
Subjective Subjective Date of Service: 08/01/21 Interval history: still has abdominal pain, but less intense again today. No nausea. Tolerating diet. Physical Exam Vital Signs: Vital Signs: Last Vital Signs Temp 97.9 F 08/01/21 07:30 Pulse 67 08/01/21 09:13 Resp 18 08/01/21 07:30 BP 173/80 H 08/01/21 09:13 Pulse Ox 92 08/01/21 07:30 BMI result Body Mass Index 31.6 Const: General: cooperative, comfortable and alert Resp: Effort & Inspection: normal respiratory effort Auscultation: clear to auscultation bilaterally Cardio: Rate: regular rate Rhythm: regular rhythm GI: Other: Slightly round, soft, fairly diffusely tender mid epigastrium, no masses Skin: Other: normal color, warm and dry Objective Data Active Medications Acetaminophen (Acetaminophen 325 Mg Tablet) 650 mg PO Q6H PRN PRN Reason: Fever Atorvastatin Calcium (Atorvastatin Calcium 40 Mg Tablet) 40 mg PO BEDTIME [facility] Last Admin: 07/31/21 21:12 Dose: 40 mg Documented by: RAMBO Dextrose (Dextrose 50 % 25 Gm/50 Ml Vial) 25 gm IVPUSH Q15M PRN; Protocol PRN Reason: per Hypoglycemia Standing Ord. Donepezil HCl (Donepezil Hcl 10 Mg Tablet) 10 mg PO DAILY [facility] Last Admin: 08/01/21 09:13 Dose: 10 mg Documented by: ONEIDA Duloxetine HCl (Duloxetine Hcl 60 Mg Capsule.Dr) 60 mg PO DAILY [facility] Last Admin: 08/01/21 09:12 Dose: 60 mg Documented by: ONEIDA Ezetimibe (Ezetimibe 10 Mg Tablet) 10 mg PO BEDTIME [facility] Last Admin: 07/31/21 21:12 Dose: 10 mg Documented by: RAMBO Enoxaparin Sodium (Enoxaparin Sodium 40 Mg/0.4 Ml Syringe) 40 mg SUBCUT DAILY [facility] Last Admin: 08/01/21 08:52 Dose: 40 mg Documented by: ONEIDA Glucose (Glucose Gel 15 Gm Gel..Gram.) 15 gm PO Q15M PRN; Protocol PRN Reason: per Hypoglycemia Standing Ord. Piperacillin Sod/Tazobactam (Sod 3.375 gm/ Sodium Chloride) 50 mls @ 100 mls/hr IV Q6H [facility] Last Infusion: 08/01/21 09:53 Dose: 0 mls/hr Documented by: ONEIDA Insulin Human Lispro (Insulin Lispro 100 Unit/Ml 3 Ml Vial) 0 unit SUBCUT QIDACHS [facility]; Protocol Last Admin: 08/01/21 08:14 Dose: Not Given Documented by: ONEIDA Non-Admin Reason: No Insulin Coverage Losartan Potassium (Losartan Potassium 50 Mg Tablet) 50 mg PO DAILY [facility]; Protocol Last Admin: 08/01/21 09:12 Dose: 50 mg Documented by: ONEIDA Memantine (Memantine Hcl 10 Mg Tablet) 10 mg PO DAILY [facility] Last Admin: 08/01/21 09:14 Dose: 10 mg Documented by: ONEIDA Metoprolol Succinate (Metoprolol Succinate Er 50 Mg Tab.Er.24h) 50 mg PO DAILY [facility]; Protocol Last Admin: 08/01/21 09:13 Dose: 50 mg Documented by: ONEIDA Morphine Sulfate (Morphine Sulfate 4 Mg/Ml Cartridge) 4 mg IVPUSH Q3H PRN; Protocol PRN Reason: Pain, severe Omeprazole (Omeprazole 20 Mg Capsule.Dr) 20 mg PO DAILY [facility] Last Admin: 08/01/21 09:12 Dose: 20 mg Documented by: ONEIDA Ondansetron HCl (Ondansetron Hcl 4 Mg/2 Ml Vial) 4 mg IVPUSH Q8H PRN PRN Reason: Nausea Oxycodone HCl (Oxycodone Hcl Immed Release 5 Mg Tablet) 5 mg PO Q4H PRN PRN Reason: Pain, Moderate (Pain Scale 4-6 Last Admin: 07/31/21 21:19 Dose: 5 mg Documented by: RAMBO Pharmacy Consult (Consult Rx Perform Med Rec) 1 each MISCELLANE ONCE PRN PRN Reason: Consult order Labs CBC & Chem 7: 08/01/21 04:27 07/31/21 05:13 Labs: Laboratory Results - last 24 hr 07/31/21 07/31/21 07/31/21 11:39 15:45 19:37 MCV MCH MCHC RDW Plt Count MPV Absolute Nucleated RBC Nucleated RBC % (auto) PT INR POC Glucose 100 198 H 281 H 08/01/21 08/01/21 08/01/21 04:27 04:27 07:34 MCV 87.5 MCH 28.4 MCHC 32.5 RDW 14.2 Plt Count 302 MPV 10.7 Absolute Nucleated RBC 0.000 Nucleated RBC % (auto) 0.0 PT 13.8 H INR 1.2 H POC Glucose 146 H Microbiology Microbiology Results: Microbiology 07/30/21 19:55 Blood Culture - Preliminary Blood - Venous No growth after 24 hours. 07/30/21 19:39 Blood Culture - Preliminary Blood - Venous No growth after 24 hours. Procedures Date of Service Date of Service: 08/01/21 Progress Note: A&P Assessment and plan (1) Postoperative intra-abdominal abscess: Status: Acute (2) S/P laparoscopic cholecystectomy: Status: Acute (3) Diabetes: Status: Acute (4) H/O: HTN (hypertension): Status: Acute Assessment and Plan: abscess gallbladder fossa. Pain and tenderness improving on Zosyn. Scheduled for CT-guided drainage tomorrow. Eliquis on hold pending abscess drainage. Diabetes mellitus. Tolerating diabetic diet. Continue sliding scale insulin coverage Hypertension. Systolic pressure is running slightly high. May be due at least in part to abdominal pain. Continue to monitor. On usual metoprolol and losartan Fall Risk Details Current Medications: Current Medications Acetaminophen (Acetaminophen 325 Mg Tablet) 650 mg PO Q6H PRN PRN Reason: Fever Atorvastatin Calcium (Atorvastatin Calcium 40 Mg Tablet) 40 mg PO BEDTIME [facility] Last Admin: 07/31/21 21:12 Dose: 40 mg Documented by: Dextrose (Dextrose 50 % 25 Gm/50 Ml Vial) 25 gm IVPUSH Q15M PRN; Protocol PRN Reason: per Hypoglycemia Standing Ord. Donepezil HCl (Donepezil Hcl 10 Mg Tablet) 10 mg PO DAILY [facility] Last Admin: 08/01/21 09:13 Dose: 10 mg Documented by: Duloxetine HCl (Duloxetine Hcl 60 Mg Capsule.Dr) 60 mg PO DAILY [facility] Last Admin: 08/01/21 09:12 Dose: 60 mg Documented by: Ezetimibe (Ezetimibe 10 Mg Tablet) 10 mg PO BEDTIME [facility] Last Admin: 07/31/21 21:12 Dose: 10 mg Documented by: Enoxaparin Sodium (Enoxaparin Sodium 40 Mg/0.4 Ml Syringe) 40 mg SUBCUT DAILY [facility] Last Admin: 08/01/21 08:52 Dose: 40 mg Documented by: Glucose (Glucose Gel 15 Gm Gel..Gram.) 15 gm PO Q15M PRN; Protocol PRN Reason: per Hypoglycemia Standing Ord. Piperacillin Sod/Tazobactam (Sod 3.375 gm/ Sodium Chloride) 50 mls @ 100 mls/hr IV Q6H [facility] Last Infusion: 08/01/21 09:53 Dose: Infused Documented by: Insulin Human Lispro (Insulin Lispro 100 Unit/Ml 3 Ml Vial) 0 unit SUBCUT QIDACHS [facility]; Protocol Last Admin: 08/01/21 08:14 Dose: Not Given Documented by: Losartan Potassium (Losartan Potassium 50 Mg Tablet) 50 mg PO DAILY [facility]; Protocol Last Admin: 08/01/21 09:12 Dose: 50 mg Documented by: Memantine (Memantine Hcl 10 Mg Tablet) 10 mg PO DAILY [facility] Last Admin: 08/01/21 09:14 Dose: 10 mg Documented by: Metoprolol Succinate (Metoprolol Succinate Er 50 Mg Tab.Er.24h) 50 mg PO DAILY [facility]; Protocol Last Admin: 08/01/21 09:13 Dose: 50 mg Documented by: Morphine Sulfate (Morphine Sulfate 4 Mg/Ml Cartridge) 4 mg IVPUSH Q3H PRN; Protocol PRN Reason: Pain, severe Omeprazole (Omeprazole 20 Mg Capsule.Dr) 20 mg PO DAILY [facility] Last Admin: 08/01/21 09:12 Dose: 20 mg Documented by: Ondansetron HCl (Ondansetron Hcl 4 Mg/2 Ml Vial) 4 mg IVPUSH Q8H PRN PRN Reason: Nausea Oxycodone HCl (Oxycodone Hcl Immed Release 5 Mg Tablet) 5 mg PO Q4H PRN PRN Reason: Pain, Moderate (Pain Scale 4-6 Last Admin: 07/31/21 21:19 Dose: 5 mg Documented by: Pharmacy Consult (Consult Rx Perform Med Rec) 1 each MISCELLANE ONCE PRN PRN Reason: Consult order Time Spent With Patient Time: Total time spent is greater than 50% in coordination of care (as documented) at patient's floor/unit and/or counseling patient: Time with patient: less than 15 minutes Quality Stroke Does the patient have a stroke diagnosis?: No VTE Prior VTE?: No VTE Risk Level:: Surgical - high VTE Device Contraindication: N/A - Device Ordered VTE Drug Contraindication: Treatment Not Indicated ( interventional procedure planned)
[2021-08-01 11:53] LABS: Glucose, Whole Blood 193 mg/dL (60-115)
[2021-08-01] MEDS: Insulin Lispro 100 UNIT/ML 3 ML VIAL SUBCUT ×3 (12:16→20:27)
[2021-08-01 16:09] LABS: Glucose, Whole Blood 208 mg/dL (60-115)
[2021-08-01] MEDS: Atorvastatin Calcium 40 MG TABLET PO (20:21)
[2021-08-01] MEDS: Ezetimibe 10 MG TABLET PO (20:21)
[2021-08-01 20:28] LABS: Glucose, Whole Blood 295 mg/dL (60-115)
[2021-08-01] MEDS: Morphine Sulfate 4 MG/ML CARTRIDGE IVPUSH (21:43)
[2021-08-02] VITALS (11 sets, daily range): BP systolic 130–194; BP diastolic 70–90; PULSE 57–69; RESP 17–19; TEMP 36–37; O2SAT 92–98
[2021-08-02] MEDS: Piperacillin Sodium/Tazobactam 3.375 GM in 0.9 % Sodium Chloride 50 ML IV ×4 (02:39→20:06)
[2021-08-02 07:29] LABS: Glucose, Whole Blood 173 mg/dL (60-115)
[2021-08-02] MEDS: DULoxetine HCl 60 MG CAPSULE.DR PO (07:40)
[2021-08-02] MEDS: Metoprolol Succinate ER 50 MG TAB.ER.24H PO (07:40)
[2021-08-02] MEDS: Losartan Potassium 50 MG TABLET PO (07:40)
[2021-08-02] MEDS: oxyCODONE HCl Immed Release 5 MG TABLET PO ×2 (07:40→20:26)
[2021-08-02] MEDS: Donepezil HCl 10 MG TABLET PO (07:41)
[2021-08-02] MEDS: Insulin Lispro 100 UNIT/ML 3 ML VIAL SUBCUT ×3 (07:41→20:25)
[2021-08-02] MEDS: Memantine HCl 10 MG TABLET PO (07:41)
[2021-08-02] MEDS: Omeprazole 20 MG CAPSULE.DR PO (07:41)
--- NOTE | 2021-08-02 08:21 | P.PNGS_ITS ---
Subjective Subjective Date of Service: 08/02/21 <Shilpa Figueroa PA-C - Last Filed: 08/02/21 08:23> 08/02/21 <Karel Padilla MD - Last Filed: 08/02/21 08:30> Interval history: Continues to have RUQ pain. Family very upset at care at [facility]. <Shilpa Figueroa PA-C - Last Filed: 08/02/21 08:23> Physical Exam Vital Signs: Vital Signs: Last Vital Signs Temp 98.0 F 08/02/21 07:20 Pulse 62 08/02/21 07:20 Resp 17 08/02/21 07:20 BP 194/90 H 08/02/21 07:20 Pulse Ox 95 08/02/21 07:20 BMI result Body Mass Index 31.6 <Shilpa Figueroa PA-C - Last Filed: 08/02/21 08:23> Const: General: comfortable, no acute distress and alert <Shilpa Figueroa PA-C - Last Filed: 08/02/21 08:23> Resp: Effort & Inspection: normal respiratory effort <Shilpa Figueroa PA-C - Last Filed: 08/02/21 08:23> GI: Inspection: No distended <Shilpa Figueroa PA-C - Last Filed: 08/02/21 08:23> Palpation (GI): Soft to palpation and Tenderness to palpation present (GI) in the RUQ <Shilpa Figueroa PA-C - Last Filed: 08/02/21 08:23> Skin: General skin exam: no rashes or lesions noted <Shilpa Figueroa PA-C - Last Filed: 08/02/21 08:23> Objective Data Active Medications Acetaminophen (Acetaminophen 325 Mg Tablet) 650 mg PO Q6H PRN PRN Reason: Fever Atorvastatin Calcium (Atorvastatin Calcium 40 Mg Tablet) 40 mg PO BEDTIME [facility]S [facility] BEDS AT [facility] Last Admin: 08/01/21 20:21 Dose: 40 mg Documented by: TAMIA Dextrose (Dextrose 50 % 25 Gm/50 Ml Vial) 25 gm IVPUSH Q15M PRN; Protocol PRN Reason: per Hypoglycemia Standing Ord. Donepezil HCl (Donepezil Hcl 10 Mg Tablet) 10 mg PO DAILY [facility] 234 BEDS AT [facility] Last Admin: 08/02/21 07:41 Dose: 10 mg Documented by: HUSSEIN Duloxetine HCl (Duloxetine Hcl 60 Mg Capsule.) 60 mg PO DAILY [facility] 234 BEDS AT [facility] Last Admin: 08/02/21 07:40 Dose: 60 mg Documented by: HUSSEIN Ezetimibe (Ezetimibe 10 Mg Tablet) 10 mg PO BEDTIME [facility] 234 BEDS AT [facility] Last Admin: 08/01/21 20:21 Dose: 10 mg Documented by: TAMIA Enoxaparin Sodium (Enoxaparin Sodium 40 Mg/0.4 Ml Syringe) 40 mg SUBCUT DAILY [facility] 234 BEDS AT [facility] Last Admin: 08/02/21 07:41 Dose: Not Given Documented by: HUSSEIN Non-Admin Reason: NPO Glucose (Glucose Gel 15 Gm Gel..Gram.) 15 gm PO Q15M PRN; Protocol PRN Reason: per Hypoglycemia Standing Ord. Piperacillin Sod/Tazobactam (Sod 3.375 gm/ Sodium Chloride) 50 mls @ 100 mls/hr IV Q6H [facility]S [facility] 234 BEDS AT [facility] Last Infusion: 08/02/21 08:12 Dose: 0 mls/hr Documented by: DEVAN Insulin Human Lispro (Insulin Lispro 100 Unit/Ml 3 Ml Vial) 0 unit SUBCUT QIDACHS [facility]S [facility] 234 BEDS AT [facility]; Protocol Last Admin: 08/02/21 07:41 Dose: 2 unit Documented by: HUSSEIN Losartan Potassium (Losartan Potassium 50 Mg Tablet) 50 mg PO DAILY [facility] 234 BEDS AT [facility]; Protocol Last Admin: 08/02/21 07:40 Dose: 50 mg Documented by: HUSSEIN Memantine (Memantine Hcl 10 Mg Tablet) 10 mg PO DAILY [facility] 234 BEDS AT [facility] Last Admin: 08/02/21 07:41 Dose: 10 mg Documented by: HUSSEIN Metoprolol Succinate (Metoprolol Succinate Er 50 Mg Tab.Er.24h) 50 mg PO DAILY [facility] 234 BEDS AT [facility]; Protocol Last Admin: 08/02/21 07:40 Dose: 50 mg Documented by: HUSSEIN Morphine Sulfate (Morphine Sulfate 4 Mg/Ml Cartridge) 4 mg IVPUSH Q3H PRN; Protocol PRN Reason: Pain, severe Last Admin: 08/01/21 21:43 Dose: 4 mg Documented by: TAMIA Omeprazole (Omeprazole 20 Mg Capsule.) 20 mg PO DAILY [facility] 234 BEDS AT [facility] Last Admin: 08/02/21 07:41 Dose: 20 mg Documented by: HUSSEIN Ondansetron HCl (Ondansetron Hcl 4 Mg/2 Ml Vial) 4 mg IVPUSH Q8H PRN PRN Reason: Nausea Oxycodone HCl (Oxycodone Hcl Immed Release 5 Mg Tablet) 5 mg PO Q4H PRN PRN Reason: Pain, Moderate (Pain Scale 4-6 Last Admin: 08/02/21 07:40 Dose: 5 mg Documented by: HUSSEIN Pharmacy Consult (Consult Rx Perform Med Rec) 1 each MISCELLANE ONCE PRN PRN Reason: Consult order <Shilpa Figueroa PA-C - Last Filed: 08/02/21 08:23> Labs CBC & Chem 7: : 08/01/21 04:27 07/31/21 05:13 <Shilpa Figueroa PA-C - Last Filed: 08/02/21 08:23> Labs: Laboratory Results - last 24 hr 08/01/21 08/01/21 08/01/21 11:37 16:05 20:24 POC Glucose 193 H 208 H 295 H 08/02/21 07:22 POC Glucose 173 H <Shilpa Figueroa PA-C - Last Filed: 08/02/21 08:23> Microbiology Microbiology Results: Microbiology 07/30/21 19:55 Blood Culture - Preliminary Blood - Venous No growth after 48 hours. 07/30/21 19:39 Blood Culture - Preliminary Blood - Venous No growth after 48 hours. <Shilpa Figueroa PA-C - Last Filed: 08/02/21 08:23> Procedures Date of Service Date of Service: 08/02/21 <Shilpa Figueroa PA-C - Last Filed: 08/02/21 08:23> Progress Note: A&P Assessment and plan (1) Postoperative intra-abdominal abscess: Status: Acute <Shilpa Figueroa PA-C - Last Filed: 08/02/21 08:23> Assessment and Plan: feels much better some pain still- asking about pain meds abd soft, no guarding or rebound no fever WBC better for CT drainage today continue IV abx long discussion with family - son-in-law states care, environment in Rehab place ([facility]) very poor also, he says he feels pt not yet ready to be out of hospital especially with Rehab experience overall, much improved clinically <Karel Padilla MD - Last Filed: 08/02/21 08:30> (2) S/P laparoscopic cholecystectomy: Status: Acute <Shilpa Figueroa PA-C - Last Filed: 08/02/21 08:23> Assessment and Plan: 71 year old male 10 days s/p lap [facility] admitted with abscess gallbladder fossa.? On Zosyn.? WBC improving. Scheduled for CT-guided drainage today.? Eliquis on hold. Diabetes mellitus.? Tolerating diabetic diet.? Continue sliding scale insulin coverage. Hold tray this morning for drainage. Hypertension.? Systolic pressure is running slightly high.? May be due at least in part to abdominal pain.? Continue to monitor.? On usual metoprolol and losartan <Shilpa Figueroa PA-C - Last Filed: 08/02/21 08:23> Fall Risk Details Current Medications: Current Medications Acetaminophen (Acetaminophen 325 Mg Tablet) 650 mg PO Q6H PRN PRN Reason: Fever Atorvastatin Calcium (Atorvastatin Calcium 40 Mg Tablet) 40 mg PO BEDTIME [facility]S INCLUDE 234 BEDS AT [facility] Last Admin: 08/01/21 20:21 Dose: 40 mg Documented by: Dextrose (Dextrose 50 % 25 Gm/50 Ml Vial) 25 gm IVPUSH Q15M PRN; Protocol PRN Reason: per Hypoglycemia Standing Ord. Donepezil HCl (Donepezil Hcl 10 Mg Tablet) 10 mg PO DAILY [facility]CLUDE 234 BEDS AT [facility] Last Admin: 08/02/21 07:41 Dose: 10 mg Documented by: Duloxetine HCl (Duloxetine Hcl 60 Mg Capsule.) 60 mg PO DAILY [facility]CLUDE 234 BEDS AT [facility] Last Admin: 08/02/21 07:40 Dose: 60 mg Documented by: Ezetimibe (Ezetimibe 10 Mg Tablet) 10 mg PO BEDTIME [facility]S INCLUDE 234 BEDS AT [facility] Last Admin: 08/01/21 20:21 Dose: 10 mg Documented by: Enoxaparin Sodium (Enoxaparin Sodium 40 Mg/0.4 Ml Syringe) 40 mg SUBCUT DAILY [facility]CLUDE 234 BEDS AT [facility] Last Admin: 08/02/21 07:41 Dose: Not Given Documented by: Glucose (Glucose Gel 15 Gm Gel..Gram.) 15 gm PO Q15M PRN; Protocol PRN Reason: per Hypoglycemia Standing Ord. Piperacillin Sod/Tazobactam (Sod 3.375 gm/ Sodium Chloride) 50 mls @ 100 mls/hr IV Q6H COUNTS INCLUDE 234 BEDS AT [facility] Last Infusion: 08/02/21 08:12 Dose: Infused Documented by: Insulin Human Lispro (Insulin Lispro 100 Unit/Ml 3 Ml Vial) 0 unit SUBCUT QIDACHS COUNTS INCLUDE 234 BEDS AT [facility]; Protocol Last Admin: 08/02/21 07:41 Dose: 2 unit Documented by: Losartan Potassium (Losartan Potassium 50 Mg Tablet) 50 mg PO DAILY [facility]S [facility]CLUDE 234 BEDS AT [facility]; Protocol Last Admin: 08/02/21 07:40 Dose: 50 mg Documented by: Memantine (Memantine Hcl 10 Mg Tablet) 10 mg PO DAILY [facility]CLUDE 234 BEDS AT [facility] Last Admin: 08/02/21 07:41 Dose: 10 mg Documented by: Metoprolol Succinate (Metoprolol Succinate Er 50 Mg Tab.Er.24h) 50 mg PO DAILY [facility]S [facility]CLUDE 234 BEDS AT [facility]; Protocol Last Admin: 08/02/21 07:40 Dose: 50 mg Documented by: Morphine Sulfate (Morphine Sulfate 4 Mg/Ml Cartridge) 4 mg IVPUSH Q3H PRN; Protocol PRN Reason: Pain, severe Last Admin: 08/01/21 21:43 Dose: 4 mg Documented by: Omeprazole (Omeprazole 20 Mg Capsule.Dr) 20 mg PO DAILY [facility]S INCLUDE 234 BEDS AT [facility] Last Admin: 08/02/21 07:41 Dose: 20 mg Documented by: Ondansetron HCl (Ondansetron Hcl 4 Mg/2 Ml Vial) 4 mg IVPUSH Q8H PRN PRN Reason: Nausea Oxycodone HCl (Oxycodone Hcl Immed Release 5 Mg Tablet) 5 mg PO Q4H PRN PRN Reason: Pain, Moderate (Pain Scale 4-6 Last Admin: 08/02/21 07:40 Dose: 5 mg Documented by: Pharmacy Consult (Consult Rx Perform Med Rec) 1 each MISCELLANE ONCE PRN PRN Reason: Consult order <Shilpa Figueroa PA-C - Last Filed: 08/02/21 08:23> Time Spent With Patient Time: Total time spent is greater than 50% in coordination of care (as documented) at patient's floor/unit and/or counseling patient: <Shilpa Figueroa PA-C - Last Filed: 08/02/21 08:23> Time with patient: 15 - 24 minutes <Shilpa Figueroa PA-C - Last Filed: 08/02/21 08:23> Quality Stroke Does the patient have a stroke diagnosis?: No <Shilpa Figueroa PA-C - Last Filed: 08/02/21 08:23> VTE Prior VTE?: No <Shilpa Figueroa PA-C - Last Filed: 08/02/21 08:23> VTE Risk Level:: Surgical - high <Shilpa Figueroa PA-C - Last Filed: 08/02/21 08:23> VTE Device Contraindication: N/A - Device Ordered <Shilpa Figueroa PA-C - Last Filed: 08/02/21 08:23> VTE Drug Contraindication: Treatment Not Indicated ( interventional procedure planned) <Shilpa Figueroa PA-C - Last Filed: 08/02/21 08:23>
--- NOTE | 2021-08-02 08:31 | P.PNIM_ITS ---
Subjective Subjective Date of Service: 08/02/21 Review of Systems Follow up Gallbladder fossa abscess no pain Physical Exam Vital Signs: Vital Signs: Last Vital Signs Temp 98.0 F 08/02/21 07:20 Pulse 62 08/02/21 07:20 Resp 17 08/02/21 07:20 BP 194/90 H 08/02/21 07:20 Pulse Ox 95 08/02/21 07:20 BMI result Body Mass Index 31.6 Appearing in no acute distress lung sounds are clear to auscultation heart regular rate rhythm, clear S1, S2 positive bowel sounds, abdomen is soft, nontender neuro patient is alert x3, no focal deficits Objective Data Active Medications Acetaminophen (Acetaminophen 325 Mg Tablet) 650 mg PO Q6H PRN PRN Reason: Fever Amlodipine Besylate (Amlodipine Besylate 5 Mg Tablet) 5 mg PO DAILY [facility]; Protocol Atorvastatin Calcium (Atorvastatin Calcium 40 Mg Tablet) 40 mg PO BEDTIME [facility] Last Admin: 08/01/21 20:21 Dose: 40 mg Documented by: TAMIA Dextrose (Dextrose 50 % 25 Gm/50 Ml Vial) 25 gm IVPUSH Q15M PRN; Protocol PRN Reason: per Hypoglycemia Standing Ord. Donepezil HCl (Donepezil Hcl 10 Mg Tablet) 10 mg PO DAILY [facility] Last Admin: 08/02/21 07:41 Dose: 10 mg Documented by: HUSSEIN Duloxetine HCl (Duloxetine Hcl 60 Mg Capsule.Dr) 60 mg PO DAILY [facility] Last Admin: 08/02/21 07:40 Dose: 60 mg Documented by: HUSSEIN Ezetimibe (Ezetimibe 10 Mg Tablet) 10 mg PO BEDTIME [facility] Last Admin: 08/01/21 20:21 Dose: 10 mg Documented by: TAMIA Enoxaparin Sodium (Enoxaparin Sodium 40 Mg/0.4 Ml Syringe) 40 mg SUBCUT DAILY [facility] Last Admin: 08/02/21 07:41 Dose: Not Given Documented by: HUSSEIN Non-Admin Reason: NPO Glucose (Glucose Gel 15 Gm Gel..Gram.) 15 gm PO Q15M PRN; Protocol PRN Reason: per Hypoglycemia Standing Ord. Piperacillin Sod/Tazobactam (Sod 3.375 gm/ Sodium Chloride) 50 mls @ 100 mls/hr IV Q6H [facility] Last Infusion: 08/02/21 08:12 Dose: 0 mls/hr Documented by: DEVAN Insulin Human Lispro (Insulin Lispro 100 Unit/Ml 3 Ml Vial) 0 unit SUBCUT QIDAC [facility]; Protocol Last Admin: 08/02/21 07:41 Dose: 2 unit Documented by: HUSSEIN Losartan Potassium (Losartan Potassium 50 Mg Tablet) 50 mg PO DAILY [facility]; Protocol Last Admin: 08/02/21 07:40 Dose: 50 mg Documented by: HUSSEIN Memantine (Memantine Hcl 10 Mg Tablet) 10 mg PO DAILY [facility] Last Admin: 08/02/21 07:41 Dose: 10 mg Documented by: HUSSEIN Metoprolol Succinate (Metoprolol Succinate Er 50 Mg Tab.Er.24h) 50 mg PO DAILY [facility]; Protocol Last Admin: 08/02/21 07:40 Dose: 50 mg Documented by: HUSSEIN Morphine Sulfate (Morphine Sulfate 4 Mg/Ml Cartridge) 4 mg IVPUSH Q3H PRN; Protocol PRN Reason: Pain, severe Last Admin: 08/01/21 21:43 Dose: 4 mg Documented by: ODRISJhonatan Omeprazole (Omeprazole 20 Mg Capsule.Dr) 20 mg PO DAILY [facility] Last Admin: 08/02/21 07:41 Dose: 20 mg Documented by: HUSSEIN Ondansetron HCl (Ondansetron Hcl 4 Mg/2 Ml Vial) 4 mg IVPUSH Q8H PRN PRN Reason: Nausea Oxycodone HCl (Oxycodone Hcl Immed Release 5 Mg Tablet) 5 mg PO Q4H PRN PRN Reason: Pain, Moderate (Pain Scale 4-6 Last Admin: 08/02/21 07:40 Dose: 5 mg Documented by: HUSSEIN Pharmacy Consult (Consult Rx Perform Med Rec) 1 each MISCELLANE ONCE PRN PRN Reason: Consult order Labs CBC & Chem 7: 08/01/21 04:27 07/31/21 05:13 Labs: Laboratory Results - last 24 hr 08/01/21 08/01/21 08/01/21 11:37 16:05 20:24 POC Glucose 193 H 208 H 295 H 08/02/21 07:22 POC Glucose 173 H Microbiology Microbiology Results: Microbiology 07/30/21 19:55 Blood Culture - Preliminary Blood - Venous No growth after 48 hours. 07/30/21 19:39 Blood Culture - Preliminary Blood - Venous No growth after 48 hours. Assessment and Plan (1) Diabetes: Status: Acute (2) H/O: HTN (hypertension): Status: Acute (3) Paroxysmal atrial fibrillation: Status: Acute Assessment and Plan: 71-year-old man admitted by General surgery.? He is 8 days status post lap choly presenting with increased right upper quadrant pain, imaging is consistent with postoperative abscess in the gallbladder fossa. He was discharged on Ceftin and Flagyl. Hypertension.? Elevated Continue losartan Amlodipine 5mg daily added Gallbladder fossa abscess Right upper quadrant pain Started on IV Zosyn Eliquis will be on hold for possible percutaneous drain Diabetes mellitus Sliding scale, ADA diet Paroxysmal atrial fibrillation Hold Eliquis for possible surgical procedure Continue metoprolol DVT prophylaxis with mechanical compression boots Attending Dr. Up Quality Stroke Does the patient have a stroke diagnosis?: No VTE Prior VTE?: No VTE Risk Level:: Surgical - high VTE Device Contraindication: N/A - Device Ordered VTE Drug Contraindication: Treatment Not Indicated ( interventional procedure planned)
[2021-08-02] MEDS: amLODIPine Besylate 5 MG TABLET PO (09:03)
[2021-08-02] MEDS: Morphine Sulfate 4 MG/ML CARTRIDGE IVPUSH ×2 (09:12→13:26)
--- NOTE | 2021-08-02 13:00 | MHC.CM.PN ---
EMR REVIEWED, PLAN FOR I&D OF ABD ABSCESS TODAY, PT'S FAMILY UNHAPPY W/DBV SO CM CONTACTED DTR KENDRICK AT 12:55PM [phone] WHO REPORTS SHE PREFERS PT GO TO [facility], REFERRAL TO BE PLACED. PT'S DTR IS ALSO WORKING ON ASSISTED LIVING FACILITIES FOR WHENPT HAS COMPLETED [facility], ANTIC D/C IN 1-2DAYS.
[2021-08-02 13:22] LABS: Glucose, Whole Blood 238 mg/dL (60-115)
--- NOTE | 2021-08-02 15:14 | PM.EVENT ---
Event Note Date of Service: 08/02/21 Event Note: CT drainage done successfully Drain in place Patient looks comfortable Abdomen soft SUZAN drain with purulent output Follow-up on culture reports Continue empiric IV antibiotics for now Daughter Bre updated by phone
[2021-08-02 16:47] LABS: Glucose, Whole Blood 356 mg/dL (60-115)
--- NOTE | 2021-08-02 18:13 | PC.NURSE ---
Patient POC glucose 356, Brook Lindsey CREDIT REPORT CHECKER made aware. Order to give sliding scale insulin with no additional coverage. 10 units per sliding scale given. Will continue to monitor blood glucoses.
[2021-08-02 20:21] LABS: Glucose, Whole Blood 343 mg/dL (60-115)
[2021-08-02] MEDS: Ezetimibe 10 MG TABLET PO (20:25)
[2021-08-02] MEDS: Atorvastatin Calcium 40 MG TABLET PO (20:26)
[2021-08-03] VITALS (7 sets, daily range): BP systolic 142–190; BP diastolic 72–89; PULSE 61–87; RESP 16–19; TEMP 36.2–36.8; O2SAT 94–97
[2021-08-03] MEDS: Piperacillin Sodium/Tazobactam 3.375 GM in 0.9 % Sodium Chloride 50 ML IV ×4 (01:25→20:45)
[2021-08-03] MEDS: oxyCODONE HCl Immed Release 5 MG TABLET PO ×3 (01:29→16:43)
[2021-08-03 05:52] LABS: Hematocrit 42.8 % (42.0-52.0); Hemoglobin 14.2 g/dl (14.0-18.0); Mean Corpuscular HGB Conc 33.2 g/dl (31.0-36.0); Mean Corpuscular Hemoglobin 29.1 pg (27.0-33.0); Mean Corpuscular Volume 87.7 fL (80.0-98.0); Mean Platelet Volume 10.3 fL (9.4-12.4); Platelet Count 287 X10*3/uL (160-400); Red Blood Count 4.88 X10*6/uL (4.60-5.80); Red Cell Distribution Width 13.9 % (11.0-16.0); White Blood Count 12.8 X10*3/uL (4.8-10.8)
[2021-08-03 06:22] LABS: Anion Gap 14 (12-20); Blood Urea Nitrogen 11 mg/dL (9-16); Calcium 8.3 mg/dL (8.4-10.2); Carbon Dioxide 24 mmol/L (22-29); Chloride 101 mmol/L (96-108); Creatinine Clr Calc Pharmacy 104.1; Estimated Glomerular Filt Rate > 60; Glucose Random 210 mg/dL (60-115); Potassium 4.2 mmol/L (3.3-5.1); Sodium 135 mmol/L (135-145)
[2021-08-03] MEDS: DULoxetine HCl 60 MG CAPSULE.DR PO (07:34)
[2021-08-03] MEDS: Donepezil HCl 10 MG TABLET PO (07:35)
[2021-08-03] MEDS: amLODIPine Besylate 5 MG TABLET PO (07:35)
[2021-08-03] MEDS: Enoxaparin Sodium 40 MG/0.4 ML SYRINGE SUBCUT (07:35)
[2021-08-03] MEDS: Metoprolol Succinate ER 50 MG TAB.ER.24H PO (07:35)
[2021-08-03] MEDS: Losartan Potassium 50 MG TABLET PO (07:35)
[2021-08-03] MEDS: Omeprazole 20 MG CAPSULE.DR PO (07:35)
[2021-08-03] MEDS: Memantine HCl 10 MG TABLET PO (07:36)
[2021-08-03] MEDS: Insulin Lispro 100 UNIT/ML 3 ML VIAL SUBCUT ×4 (07:36→20:52)
[2021-08-03 07:49] LABS: Glucose, Whole Blood 196 mg/dL (60-115)
--- NOTE | 2021-08-03 08:46 | PM.PNGS ---
Subjective Subjective Date of Service: 08/03/21 <Shilpa Figueroa PA-C - Last Filed: 08/03/21 08:51> 08/03/21 <Karel Padilla MD - Last Filed: 08/03/21 13:04> Interval history: Feels ok this morning, continues to have RUQ pain. Might be a little improved. Tolerating diet. <Shilpa Figueroa PA-C - Last Filed: 08/03/21 08:51> Physical Exam Vital Signs: Vital Signs: Last Vital Signs Temp 97.5 F 08/03/21 07:22 Pulse 80 08/03/21 07:22 Resp 19 08/03/21 07:22 BP 190/89 H 08/03/21 07:22 Pulse Ox 97 08/03/21 07:22 BMI result Body Mass Index 31.6 <Shilpa Figueroa PA-C - Last Filed: 08/03/21 08:51> Const: General: no acute distress and alert <Shilpa Figueroa PA-C - Last Filed: 08/03/21 08:51> Resp: Effort & Inspection: normal respiratory effort <Shilpa Figueroa PA-C - Last Filed: 08/03/21 08:51> GI: Other: SUZAN drain with purulent appearing drainage <Shilpa Figueroa PA-C - Last Filed: 08/03/21 08:51> Inspection: No distended and Yes incision (healing well) <Shilpa Figueroa PA-C - Last Filed: 08/03/21 08:51> Palpation (GI): Soft to palpation and Tenderness to palpation present (GI) in the RUQ <Shilpa Figueroa PA-C - Last Filed: 08/03/21 08:51> Skin: General skin exam: no rashes or lesions noted <Shilpa Figueroa PA-C - Last Filed: 08/03/21 08:51> Extrem: General: Yes no clubbing, cyanosis or edema <ALTAGRACIA Gibson Last Filed: 08/03/21 08:51> Objective Data Active Medications Acetaminophen (Acetaminophen 325 Mg Tablet) 650 mg PO Q6H PRN PRN Reason: Fever Amlodipine Besylate (Amlodipine Besylate 5 Mg Tablet) 5 mg PO DAILY [facility]; Protocol Last Admin: 08/03/21 07:35 Dose: 5 mg Documented by: FELIPE Atorvastatin Calcium (Atorvastatin Calcium 40 Mg Tablet) 40 mg PO BEDTIME [facility] Last Admin: 08/02/21 20:26 Dose: 40 mg Documented by: BJORN Dextrose (Dextrose 50 % 25 Gm/50 Ml Vial) 25 gm IVPUSH Q15M PRN; Protocol PRN Reason: per Hypoglycemia Standing Ord. Donepezil HCl (Donepezil Hcl 10 Mg Tablet) 10 mg PO DAILY [facility] Last Admin: 08/03/21 07:35 Dose: 10 mg Documented by: FELIPE Duloxetine HCl (Duloxetine Hcl 60 Mg Capsule.Dr) 60 mg PO DAILY [facility] Last Admin: 08/03/21 07:34 Dose: 60 mg Documented by: FELIPE Ezetimibe (Ezetimibe 10 Mg Tablet) 10 mg PO BEDTIME [facility] Last Admin: 08/02/21 20:25 Dose: 10 mg Documented by: BJORN Enoxaparin Sodium (Enoxaparin Sodium 40 Mg/0.4 Ml Syringe) 40 mg SUBCUT DAILY [facility] Last Admin: 08/03/21 07:35 Dose: 40 mg Documented by: FELIPE Glucose (Glucose Gel 15 Gm Gel..Gram.) 15 gm PO Q15M PRN; Protocol PRN Reason: per Hypoglycemia Standing Ord. Piperacillin Sod/Tazobactam (Sod 3.375 gm/ Sodium Chloride) 50 mls @ 100 mls/hr IV Q6H [facility] Last Infusion: 08/03/21 08:11 Dose: 0 mls/hr Documented by: FELIPE Insulin Human Lispro (Insulin Lispro 100 Unit/Ml 3 Ml Vial) 0 unit SUBCUT QIDACHS [facility], [facility]; Protocol Last Admin: 08/03/21 07:36 Dose: 2 unit Documented by: FELIPE Losartan Potassium (Losartan Potassium 50 Mg Tablet) 50 mg PO DAILY [facility]; Protocol Last Admin: 08/03/21 07:35 Dose: 50 mg Documented by: FELIPE Memantine (Memantine Hcl 10 Mg Tablet) 10 mg PO DAILY [facility] Last Admin: 08/03/21 07:36 Dose: 10 mg Documented by: FELIPE Metoprolol Succinate (Metoprolol Succinate Er 50 Mg Tab.Er.24h) 50 mg PO DAILY [facility]; Protocol Last Admin: 08/03/21 07:35 Dose: 50 mg Documented by: FELIPE Morphine Sulfate (Morphine Sulfate 4 Mg/Ml Cartridge) 4 mg IVPUSH Q3H PRN; Protocol PRN Reason: Pain, severe Last Admin: 08/02/21 13:26 Dose: 4 mg Documented by: COTEMA Omeprazole (Omeprazole 20 Mg Capsule.Dr) 20 mg PO DAILY [facility] Last Admin: 08/03/21 07:35 Dose: 20 mg Documented by: FELIPE Ondansetron HCl (Ondansetron Hcl 4 Mg/2 Ml Vial) 4 mg IVPUSH Q8H PRN PRN Reason: Nausea Oxycodone HCl (Oxycodone Hcl Immed Release 5 Mg Tablet) 5 mg PO Q4H PRN PRN Reason: Pain, Moderate (Pain Scale 4-6 Last Admin: 08/03/21 08:36 Dose: 5 mg Documented by: FELIPE Pharmacy Consult (Consult Rx Perform Med Rec) 1 each MISCELLANE ONCE PRN PRN Reason: Consult order <Shilpa Figueroa PA-C - Last Filed: 08/03/21 08:51> Labs CBC & Chem 7: : 08/03/21 05:27 08/03/21 05:27 <Shilpa Figueroa PA-C - Last Filed: 08/03/21 08:51> Labs: Laboratory Results - last 24 hr 08/02/21 08/02/21 08/02/21 13:15 15:54 19:28 MCV MCH MCHC RDW Plt Count MPV Absolute Nucleated RBC Nucleated RBC % (auto) Anion Gap Estim Creat Clear Calc Estimated GFR POC Glucose 238 H 356 H* 343 H Random Glucose Calcium 08/03/21 08/03/21 08/03/21 05:27 05:27 07:21 MCV 87.7 MCH 29.1 MCHC 33.2 RDW 13.9 Plt Count 287 MPV 10.3 Absolute Nucleated RBC 0.000 Nucleated RBC % (auto) 0.0 Anion Gap 14 Estim Creat Clear Calc 104.1 Estimated GFR > 60 POC Glucose 196 H Random Glucose 210 H Calcium 8.3 L <Shilpa Figueroa PA-C - Last Filed: 08/03/21 08:51> Microbiology Microbiology Results: Microbiology 08/02/21 15:10 Gram Stain - Final Abdomen - Abscess 08/02/21 15:11 Gram Stain - Final Abdomen - Abscess Routine Culture - Final <Shilpa Figueroa PA-C - Last Filed: 08/03/21 08:51> Procedures Date of Service Date of Service: 08/03/21 <Karel Padilla MD - Last Filed: 08/03/21 13:04> Progress Note: A&P Assessment and plan (1) Postoperative intra-abdominal abscess: Status: Acute <Shilpa Figueroa PA-C - Last Filed: 08/03/21 08:51> Assessment and Plan: complaints of pain although improving looks comfortable no events overnight no fever abdomen soft SUZAN drain with purulent output IV antibiotics BP control as well- he has hypertension daughter updated seen exam - agree with GUEAR Figueroa <Karel Padilla MD - Last Filed: 08/03/21 13:04> Assessment and Plan: 71 year old male 10 days s/p lap CCY admitted with abscess gallbladder fossa.? S/p CT guided drainage with drain placement yesterday.?Abscess cultures pending. Continue pain control. On Zosyn, will need to remain in hospital for a couple of days for IV abx. Will likely be discharged with drain in place given output. Hypertension.? Systolic pressure is running slightly high.? May be due at least in part to abdominal pain.? Continue to monitor.? On usual metoprolol and losartan. <Shilpa Figueroa PA-C - Last Filed: 08/03/21 08:51> Fall Risk Details Current Medications: Current Medications Acetaminophen (Acetaminophen 325 Mg Tablet) 650 mg PO Q6H PRN PRN Reason: Fever Amlodipine Besylate (Amlodipine Besylate 5 Mg Tablet) 5 mg PO DAILY [facility]; Protocol Last Admin: 08/03/21 07:35 Dose: 5 mg Documented by: Atorvastatin Calcium (Atorvastatin Calcium 40 Mg Tablet) 40 mg PO BEDTIME [facility] Last Admin: 08/02/21 20:26 Dose: 40 mg Documented by: Dextrose (Dextrose 50 % 25 Gm/50 Ml Vial) 25 gm IVPUSH Q15M PRN; Protocol PRN Reason: per Hypoglycemia Standing Ord. Donepezil HCl (Donepezil Hcl 10 Mg Tablet) 10 mg PO DAILY [facility] Last Admin: 08/03/21 07:35 Dose: 10 mg Documented by: Duloxetine HCl (Duloxetine Hcl 60 Mg Capsule.) 60 mg PO DAILY [facility] Last Admin: 08/03/21 07:34 Dose: 60 mg Documented by: Ezetimibe (Ezetimibe 10 Mg Tablet) 10 mg PO BEDTIME [facility] Last Admin: 08/02/21 20:25 Dose: 10 mg Documented by: Enoxaparin Sodium (Enoxaparin Sodium 40 Mg/0.4 Ml Syringe) 40 mg SUBCUT DAILY [facility] Last Admin: 08/03/21 07:35 Dose: 40 mg Documented by: Glucose (Glucose Gel 15 Gm Gel..Gram.) 15 gm PO Q15M PRN; Protocol PRN Reason: per Hypoglycemia Standing Ord. Piperacillin Sod/Tazobactam (Sod 3.375 gm/ Sodium Chloride) 50 mls @ 100 mls/hr IV Q6H [facility] Last Infusion: 08/03/21 08:11 Dose: Infused Documented by: Insulin Human Lispro (Insulin Lispro 100 Unit/Ml 3 Ml Vial) 0 unit SUBCUT QIDACHS [facility], [facility]; Protocol Last Admin: 08/03/21 07:36 Dose: 2 unit Documented by: Losartan Potassium (Losartan Potassium 50 Mg Tablet) 50 mg PO DAILY [facility]; Protocol Last Admin: 08/03/21 07:35 Dose: 50 mg Documented by: Memantine (Memantine Hcl 10 Mg Tablet) 10 mg PO DAILY [facility] Last Admin: 08/03/21 07:36 Dose: 10 mg Documented by: Metoprolol Succinate (Metoprolol Succinate Er 50 Mg Tab.Er.24h) 50 mg PO DAILY [facility]; Protocol Last Admin: 08/03/21 07:35 Dose: 50 mg Documented by: Morphine Sulfate (Morphine Sulfate 4 Mg/Ml Cartridge) 4 mg IVPUSH Q3H PRN; Protocol PRN Reason: Pain, severe Last Admin: 08/02/21 13:26 Dose: 4 mg Documented by: Omeprazole (Omeprazole 20 Mg Capsule.) 20 mg PO DAILY [facility] Last Admin: 08/03/21 07:35 Dose: 20 mg Documented by: Ondansetron HCl (Ondansetron Hcl 4 Mg/2 Ml Vial) 4 mg IVPUSH Q8H PRN PRN Reason: Nausea Oxycodone HCl (Oxycodone Hcl Immed Release 5 Mg Tablet) 5 mg PO Q4H PRN PRN Reason: Pain, Moderate (Pain Scale 4-6 Last Admin: 08/03/21 08:36 Dose: 5 mg Documented by: Pharmacy Consult (Consult Rx Perform Med Rec) 1 each MISCELLANE ONCE PRN PRN Reason: Consult order <Shilpa Fiugeroa PA-C - Last Filed: 08/03/21 08:51> Time Spent With Patient Time: Total time spent is greater than 50% in coordination of care (as documented) at patient's floor/unit and/or counseling patient: <Shilpa Figueroa PA-C - Last Filed: 08/03/21 08:51> Time with patient: 15 - 24 minutes <Shilpa Figueroa PA-C - Last Filed: 08/03/21 08:51> Quality Stroke Does the patient have a stroke diagnosis?: No <Shilpa Figueroa PA-C - Last Filed: 08/03/21 08:51> VTE Prior VTE?: No <Shilpa Figueroa PA-C - Last Filed: 08/03/21 08:51> VTE Risk Level:: Surgical - high <Shilpa Figueroa PA-C - Last Filed: 08/03/21 08:51> VTE Device Contraindication: N/A - Device Ordered <Shilpa Figueroa PA-C - Last Filed: 08/03/21 08:51> VTE Drug Contraindication: Treatment Not Indicated ( interventional procedure planned) <Shilpa Figueroa PA-C - Last Filed: 08/03/21 08:51>
--- NOTE | 2021-08-03 10:03 | HO.PM.IMPN ---
Subjective Subjective Date of Service: 08/03/21 Review of Systems follow-up consultation for hypertension, gallbladder fossa abscess Denies pain, nausea, vomiting All other systems reviewed are negative Physical Exam Vital Signs: Vital Signs: Last Vital Signs Temp 97.5 F 08/03/21 07:22 Pulse 80 08/03/21 07:22 Resp 19 08/03/21 07:22 BP 190/89 H 08/03/21 07:22 Pulse Ox 97 08/03/21 07:22 BMI result Body Mass Index 31.6 Appearing in no acute distress lung sounds are clear to auscultation heart regular rate rhythm, clear S1, S2 positive bowel sounds, abdomen is soft, nontender neuro patient is alert x3, no focal deficits Objective Data Active Medications Acetaminophen (Acetaminophen 325 Mg Tablet) 650 mg PO Q6H PRN PRN Reason: Fever Amlodipine Besylate (Amlodipine Besylate 5 Mg Tablet) 5 mg PO DAILY [facility]; Protocol Last Admin: 08/03/21 07:35 Dose: 5 mg Documented by: FELIPE Atorvastatin Calcium (Atorvastatin Calcium 40 Mg Tablet) 40 mg PO BEDTIME [facility] Last Admin: 08/02/21 20:26 Dose: 40 mg Documented by: BJORN Dextrose (Dextrose 50 % 25 Gm/50 Ml Vial) 25 gm IVPUSH Q15M PRN; Protocol PRN Reason: per Hypoglycemia Standing Ord. Donepezil HCl (Donepezil Hcl 10 Mg Tablet) 10 mg PO DAILY [facility] Last Admin: 08/03/21 07:35 Dose: 10 mg Documented by: FELIPE Duloxetine HCl (Duloxetine Hcl 60 Mg Capsule.) 60 mg PO DAILY [facility] Last Admin: 08/03/21 07:34 Dose: 60 mg Documented by: FELIPE Ezetimibe (Ezetimibe 10 Mg Tablet) 10 mg PO BEDTIME [facility] Last Admin: 08/02/21 20:25 Dose: 10 mg Documented by: BJORN Enoxaparin Sodium (Enoxaparin Sodium 40 Mg/0.4 Ml Syringe) 40 mg SUBCUT DAILY [facility] Last Admin: 08/03/21 07:35 Dose: 40 mg Documented by: FELIPE Glucose (Glucose Gel 15 Gm Gel..Gram.) 15 gm PO Q15M PRN; Protocol PRN Reason: per Hypoglycemia Standing Ord. Piperacillin Sod/Tazobactam (Sod 3.375 gm/ Sodium Chloride) 50 mls @ 100 mls/hr IV Q6H [facility] Last Infusion: 08/03/21 08:11 Dose: 0 mls/hr Documented by: FELIPE Insulin Human Lispro (Insulin Lispro 100 Unit/Ml 3 Ml Vial) 0 unit SUBCUT QIDACHS [facility]; Protocol Last Admin: 08/03/21 07:36 Dose: 2 unit Documented by: FELIPE Losartan Potassium (Losartan Potassium 50 Mg Tablet) 50 mg PO DAILY [facility]; Protocol Last Admin: 08/03/21 07:35 Dose: 50 mg Documented by: FELIPE Memantine (Memantine Hcl 10 Mg Tablet) 10 mg PO DAILY [facility] Last Admin: 08/03/21 07:36 Dose: 10 mg Documented by: FELIPE Metoprolol Succinate (Metoprolol Succinate Er 50 Mg Tab.Er.24h) 50 mg PO DAILY [facility]; Protocol Last Admin: 08/03/21 07:35 Dose: 50 mg Documented by: FELIPE Morphine Sulfate (Morphine Sulfate 4 Mg/Ml Cartridge) 4 mg IVPUSH Q3H PRN; Protocol PRN Reason: Pain, severe Last Admin: 08/02/21 13:26 Dose: 4 mg Documented by: COTEMA Omeprazole (Omeprazole 20 Mg Capsule.Dr) 20 mg PO DAILY [facility] Last Admin: 08/03/21 07:35 Dose: 20 mg Documented by: FELIPE Ondansetron HCl (Ondansetron Hcl 4 Mg/2 Ml Vial) 4 mg IVPUSH Q8H PRN PRN Reason: Nausea Oxycodone HCl (Oxycodone Hcl Immed Release 5 Mg Tablet) 5 mg PO Q4H PRN PRN Reason: Pain, Moderate (Pain Scale 4-6 Last Admin: 08/03/21 08:36 Dose: 5 mg Documented by: FELIPE Pharmacy Consult (Consult Rx Perform Med Rec) 1 each MISCELLANE ONCE PRN PRN Reason: Consult order Labs CBC & Chem 7: 08/03/21 05:27 08/03/21 05:27 Labs: Laboratory Results - last 24 hr 08/02/21 08/02/21 08/02/21 13:15 15:54 19:28 MCV MCH MCHC RDW Plt Count MPV Absolute Nucleated RBC Nucleated RBC % (auto) Anion Gap Estim Creat Clear Calc Estimated GFR POC Glucose 238 H 356 H* 343 H Random Glucose Calcium 08/03/21 08/03/21 08/03/21 05:27 05:27 07:21 MCV 87.7 MCH 29.1 MCHC 33.2 RDW 13.9 Plt Count 287 MPV 10.3 Absolute Nucleated RBC 0.000 Nucleated RBC % (auto) 0.0 Anion Gap 14 Estim Creat Clear Calc 104.1 Estimated GFR > 60 POC Glucose 196 H Random Glucose 210 H Calcium 8.3 L Microbiology Microbiology Results: Microbiology 08/02/21 15:10 Gram Stain - Final Abdomen - Abscess 08/02/21 15:11 Gram Stain - Final Abdomen - Abscess Routine Culture - Final Assessment and Plan (1) H/O: HTN (hypertension): Status: Acute Assessment and Plan: 71-year-old man admitted by General surgery.? He is 8 days status post lap choly presenting with increased right upper quadrant pain, imaging is consistent with postoperative abscess in the gallbladder fossa. He was discharged on Ceftin and Flagyl. Hypertension.? Elevated Continue losartan Amlodipine 5mg daily added Gallbladder fossa abscess Right upper quadrant pain Started on IV Zosyn Drain in place Eliquis will be on hold for possible percutaneous drain Diabetes mellitus Sliding scale, ADA diet Paroxysmal atrial fibrillation Hold Eliquis, discuss with General surgery after all procedures completed to restart Continue metoprolol DVT prophylaxis with mechanical compression boots Attending Dr. Up Quality Stroke Does the patient have a stroke diagnosis?: No VTE Prior VTE?: No VTE Risk Level:: Surgical - high VTE Device Contraindication: N/A - Device Ordered VTE Drug Contraindication: Treatment Not Indicated ( interventional procedure planned)
[2021-08-03 11:31] LABS: Glucose, Whole Blood 305 mg/dL (60-115)
[2021-08-03 16:37] LABS: Glucose, Whole Blood 333 mg/dL (60-115)
[2021-08-03 20:44] LABS: Glucose, Whole Blood 342 mg/dL (60-115)
[2021-08-03] MEDS: Atorvastatin Calcium 40 MG TABLET PO (20:45)
[2021-08-03] MEDS: Ezetimibe 10 MG TABLET PO (20:45)
[2021-08-04] MEDS: Piperacillin Sodium/Tazobactam 3.375 GM in 0.9 % Sodium Chloride 50 ML IV ×4 (01:50→21:00)
[2021-08-04 04:00] VITALS: BP 146/86; PULSE 75; RESP 18; TEMP 36.2; O2SAT 95
[2021-08-04 07:14] VITALS: BP 168/76; PULSE 66; RESP 19; TEMP 36.2; O2SAT 95
[2021-08-04] MEDS: Memantine HCl 10 MG TABLET PO (07:20)
[2021-08-04] MEDS: Losartan Potassium 50 MG TABLET PO (07:20)
[2021-08-04] MEDS: Omeprazole 20 MG CAPSULE.DR PO (07:20)
[2021-08-04] MEDS: Donepezil HCl 10 MG TABLET PO (07:20)
[2021-08-04] MEDS: oxyCODONE HCl Immed Release 5 MG TABLET PO ×3 (07:20→21:31)
[2021-08-04] MEDS: DULoxetine HCl 60 MG CAPSULE.DR PO (07:21)
[2021-08-04] MEDS: Enoxaparin Sodium 40 MG/0.4 ML SYRINGE SUBCUT (07:21)
[2021-08-04] MEDS: amLODIPine Besylate 5 MG TABLET PO (07:21)
[2021-08-04] MEDS: Metoprolol Succinate ER 50 MG TAB.ER.24H PO (07:21)
[2021-08-04 07:36] LABS: Glucose, Whole Blood 293 mg/dL (60-115)
[2021-08-04] MEDS: Insulin Lispro 100 UNIT/ML 3 ML VIAL SUBCUT ×4 (07:40→21:01)
--- NOTE | 2021-08-04 08:23 | P.PNGS_ITS ---
Subjective Subjective Date of Service: 08/04/21 Interval history: Denies new complaints Feels ?okay? Seems to have better pain control Tolerating diet No fever Physical Exam Vital Signs: Vital Signs: Last Vital Signs Temp 97.2 F 08/04/21 07:14 Pulse 66 08/04/21 07:14 Resp 19 08/04/21 07:14 BP 168/76 H 08/04/21 07:14 Pulse Ox 95 08/04/21 07:14 BMI result Body Mass Index 31.6 Const: Other: Looks well General: comfortable and no acute distress Resp: Effort & Inspection: normal respiratory effort Cardio: Rate: regular rate Rhythm: abnormal rhythm GI: Other: Soft, rebound, SUZAN drain with scanty thick seropurulent output Objective Data Active Medications Acetaminophen (Acetaminophen 325 Mg Tablet) 650 mg PO Q6H PRN PRN Reason: Fever Amlodipine Besylate (Amlodipine Besylate 5 Mg Tablet) 5 mg PO DAILY [facility]; Protocol Last Admin: 08/04/21 07:21 Dose: 5 mg Documented by: FELIPE Atorvastatin Calcium (Atorvastatin Calcium 40 Mg Tablet) 40 mg PO BEDTIME [facility] Last Admin: 08/03/21 20:45 Dose: 40 mg Documented by: NICA Dextrose (Dextrose 50 % 25 Gm/50 Ml Vial) 25 gm IVPUSH Q15M PRN; Protocol PRN Reason: per Hypoglycemia Standing Ord. Donepezil HCl (Donepezil Hcl 10 Mg Tablet) 10 mg PO DAILY [facility] Last Admin: 08/04/21 07:20 Dose: 10 mg Documented by: FELIPE Duloxetine HCl (Duloxetine Hcl 60 Mg Capsule.) 60 mg PO DAILY [facility] Last Admin: 08/04/21 07:21 Dose: 60 mg Documented by: FELIPE Ezetimibe (Ezetimibe 10 Mg Tablet) 10 mg PO BEDTIME [facility] Last Admin: 08/03/21 20:45 Dose: 10 mg Documented by: NICA Enoxaparin Sodium (Enoxaparin Sodium 40 Mg/0.4 Ml Syringe) 40 mg SUBCUT DAILY [facility] Last Admin: 08/04/21 07:21 Dose: 40 mg Documented by: FELIPE Glucose (Glucose Gel 15 Gm Gel..Gram.) 15 gm PO Q15M PRN; Protocol PRN Reason: per Hypoglycemia Standing Ord. Piperacillin Sod/Tazobactam (Sod 3.375 gm/ Sodium Chloride) 50 mls @ 100 mls/hr IV Q6H [facility] Last Admin: 08/04/21 07:20 Dose: 100 mls/hr Documented by: FELIPE Insulin Human Lispro (Insulin Lispro 100 Unit/Ml 3 Ml Vial) 0 unit SUBCUT QIDACHS [facility]; Protocol Last Admin: 08/04/21 07:40 Dose: 6 unit Documented by: FELIPE Losartan Potassium (Losartan Potassium 50 Mg Tablet) 50 mg PO DAILY [facility]; Protocol Last Admin: 08/04/21 07:20 Dose: 50 mg Documented by: FELIPE Memantine (Memantine Hcl 10 Mg Tablet) 10 mg PO DAILY [facility] Last Admin: 08/04/21 07:20 Dose: 10 mg Documented by: FELIPE Metoprolol Succinate (Metoprolol Succinate Er 50 Mg Tab.Er.24h) 50 mg PO DAILY [facility]; Protocol Last Admin: 08/04/21 07:21 Dose: 50 mg Documented by: FELIPE Morphine Sulfate (Morphine Sulfate 4 Mg/Ml Cartridge) 4 mg IVPUSH Q3H PRN; Protocol PRN Reason: Pain, severe Last Admin: 08/02/21 13:26 Dose: 4 mg Documented by: COTEMA Omeprazole (Omeprazole 20 Mg Capsule.Dr) 20 mg PO DAILY [facility] Last Admin: 08/04/21 07:20 Dose: 20 mg Documented by: FELIPE Ondansetron HCl (Ondansetron Hcl 4 Mg/2 Ml Vial) 4 mg IVPUSH Q8H PRN PRN Reason: Nausea Oxycodone HCl (Oxycodone Hcl Immed Release 5 Mg Tablet) 5 mg PO Q4H PRN PRN Reason: Pain, Moderate (Pain Scale 4-6 Last Admin: 08/04/21 07:20 Dose: 5 mg Documented by: FELIPE Pharmacy Consult (Consult Rx Perform Med Rec) 1 each MISCELLANE ONCE PRN PRN Reason: Consult order Labs CBC & Chem 7: 08/03/21 05:27 08/03/21 05:27 Labs: Laboratory Results - last 24 hr 08/03/21 08/03/21 08/03/21 11:05 15:41 19:54 POC Glucose 305 H 333 H 342 H 08/04/21 07:15 POC Glucose 293 H Microbiology Microbiology Results: Microbiology 08/02/21 15:10 Gram Stain - Final Abdomen - Abscess Routine Culture - Preliminary Culture in progress. Anaerobic Culture - Preliminary Culture in progress. Procedures Date of Service Date of Service: 08/04/21 Progress Note: A&P Assessment and plan (1) Postoperative intra-abdominal abscess: Status: Acute Assessment and Plan: Drain in place IV antibiotics Good GI function Patient looks well Plan to keep drain on discharge Await full culture report Discussed with upper caser - [facility] Doing well Will discuss with daughter Bre Fall Risk Details Current Medications: Current Medications Acetaminophen (Acetaminophen 325 Mg Tablet) 650 mg PO Q6H PRN PRN Reason: Fever Amlodipine Besylate (Amlodipine Besylate 5 Mg Tablet) 5 mg PO DAILY [facility]; Protoc ol Last Admin: 08/04/21 07:21 Dose: 5 mg Documented by: Atorvastatin Calcium (Atorvastatin Calcium 40 Mg Tablet) 40 mg PO BEDTIME [facility] Last Admin: 08/03/21 20:45 Dose: 40 mg Documented by: Dextrose (Dextrose 50 % 25 Gm/50 Ml Vial) 25 gm IVPUSH Q15M PRN; Protocol PRN Reason: per Hypoglycemia Standing Ord. Donepezil HCl (Donepezil Hcl 10 Mg Tablet) 10 mg PO DAILY [facility] Last Admin: 08/04/21 07:20 Dose: 10 mg Documented by: Duloxetine HCl (Duloxetine Hcl 60 Mg Capsule.Dr) 60 mg PO DAILY [facility] Last Admin: 08/04/21 07:21 Dose: 60 mg Documented by: Ezetimibe (Ezetimibe 10 Mg Tablet) 10 mg PO BEDTIME [facility] Last Admin: 08/03/21 20:45 Dose: 10 mg Documented by: Enoxaparin Sodium (Enoxaparin Sodium 40 Mg/0.4 Ml Syringe) 40 mg SUBCUT DAILY [facility] Last Admin: 08/04/21 07:21 Dose: 40 mg Documented by: Glucose (Glucose Gel 15 Gm Gel..Gram.) 15 gm PO Q15M PRN; Protocol PRN Reason: per Hypoglycemia Standing Ord. Piperacillin Sod/Tazobactam (Sod 3.375 gm/ Sodium Chloride) 50 mls @ 100 mls/hr IV Q6H [facility] Last Admin: 08/04/21 07:20 Dose: 100 mls/hr Documented by: Insulin Human Lispro (Insulin Lispro 100 Unit/Ml 3 Ml Vial) 0 unit SUBCUT QIDACHS [facility]; Protocol Last Admin: 08/04/21 07:40 Dose: 6 unit Documented by: Losartan Potassium (Losartan Potassium 50 Mg Tablet) 50 mg PO DAILY [facility]; Protocol Last Admin: 08/04/21 07:20 Dose: 50 mg Documented by: Memantine (Memantine Hcl 10 Mg Tablet) 10 mg PO DAILY [facility] Last Admin: 08/04/21 07:20 Dose: 10 mg Documented by: Metoprolol Succinate (Metoprolol Succinate Er 50 Mg Tab.Er.24h) 50 mg PO DAILY [facility]; Protocol Last Admin: 08/04/21 07:21 Dose: 50 mg Documented by: Morphine Sulfate (Morphine Sulfate 4 Mg/Ml Cartridge) 4 mg IVPUSH Q3H PRN; Protocol PRN Reason: Pain, severe Last Admin: 08/02/21 13:26 Dose: 4 mg Documented by: Omeprazole (Omeprazole 20 Mg Capsule.Dr) 20 mg PO DAILY [facility] Last Admin: 08/04/21 07:20 Dose: 20 mg Documented by: Ondansetron HCl (Ondansetron Hcl 4 Mg/2 Ml Vial) 4 mg IVPUSH Q8H PRN PRN Reason: Nausea Oxycodone HCl (Oxycodone Hcl Immed Release 5 Mg Tablet) 5 mg PO Q4H PRN PRN Reason: Pain, Moderate (Pain Scale 4-6 Last Admin: 08/04/21 07:20 Dose: 5 mg Documented by: Pharmacy Consult (Consult Rx Perform Med Rec) 1 each MISCELLANE ONCE PRN PRN Reason: Consult order Time Spent With Patient Time: Total time spent is greater than 50% in coordination of care (as documented) at patient's floor/unit and/or counseling patient: Time with patient: 15 - 24 minutes Quality Stroke Does the patient have a stroke diagnosis?: No VTE Prior VTE?: No VTE Risk Level:: Surgical - high VTE Device Contraindication: N/A - Device Ordered VTE Drug Contraindication: Treatment Not Indicated ( interventional procedure planned)
--- NOTE | 2021-08-04 08:40 | MHC.CM.PN ---
CM RECEIVED MESSAGE FROM SURGICAL TO DISCUSS DCP, SURGICAL AWARE PT WILL D/C TO [facility] FOR STR UPON D/C HE HAD A BAD EXPERIENCE AT [facility], ANTIC D/C OR [facility] THIS WEEK, CM WILL CONT TO FOLLOW D/C NEEDS AND UPDATE REFERRAL VIA [facility].
[2021-08-04 11:24] VITALS: BP 170/81; PULSE 72; RESP 18; TEMP 37; O2SAT 92
--- NOTE | 2021-08-04 11:26 | HO.PM.IMPN ---
Subjective Subjective Date of Service: 08/04/21 Interval History: Feels well; no acute issue overnight Review of Systems Denies chest pain Denies shortness of breath Denies nausea vomiting diarrhea Physical Exam Vital Signs: Vital Signs: Last Vital Signs Temp 98.6 F 08/04/21 11:24 Pulse 72 08/04/21 11:24 Resp 18 08/04/21 11:24 BP 170/81 H 08/04/21 11:24 Pulse Ox 92 08/04/21 11:24 BMI result Body Mass Index 31.6 Objective Data Active Medications Acetaminophen (Acetaminophen 325 Mg Tablet) 650 mg PO Q6H PRN PRN Reason: Fever Amlodipine Besylate (Amlodipine Besylate 5 Mg Tablet) 5 mg PO DAILY [facility]; Protocol Last Admin: 08/04/21 07:21 Dose: 5 mg Documented by: FELIPE Atorvastatin Calcium (Atorvastatin Calcium 40 Mg Tablet) 40 mg PO BEDTIME [facility] Last Admin: 08/03/21 20:45 Dose: 40 mg Documented by: NICA Dextrose (Dextrose 50 % 25 Gm/50 Ml Vial) 25 gm IVPUSH Q15M PRN; Protocol PRN Reason: per Hypoglycemia Standing Ord. Donepezil HCl (Donepezil Hcl 10 Mg Tablet) 10 mg PO DAILY [facility] Last Admin: 08/04/21 07:20 Dose: 10 mg Documented by: FELIPE Duloxetine HCl (Duloxetine Hcl 60 Mg Capsule.Dr) 60 mg PO DAILY [facility] Last Admin: 08/04/21 07:21 Dose: 60 mg Documented by: FELIPE Ezetimibe (Ezetimibe 10 Mg Tablet) 10 mg PO BEDTIME [facility] Last Admin: 08/03/21 20:45 Dose: 10 mg Documented by: NICA Enoxaparin Sodium (Enoxaparin Sodium 40 Mg/0.4 Ml Syringe) 40 mg SUBCUT DAILY [facility] Last Admin: 08/04/21 07:21 Dose: 40 mg Documented by: FELIPE Glucose (Glucose Gel 15 Gm Gel..Gram.) 15 gm PO Q15M PRN; Protocol PRN Reason: per Hypoglycemia Standing Ord. Piperacillin Sod/Tazobactam (Sod 3.375 gm/ Sodium Chloride) 50 mls @ 100 mls/hr IV Q6H [facility] Last Infusion: 08/04/21 08:37 Dose: 0 mls/hr Documented by: FELIPE Insulin Human Lispro (Insulin Lispro 100 Unit/Ml 3 Ml Vial) 0 unit SUBCUT QIDACHS [facility]; Protocol Last Admin: 08/04/21 07:40 Dose: 6 unit Documented by: FELIPE Losartan Potassium (Losartan Potassium 50 Mg Tablet) 50 mg PO DAILY [facility]; Protocol Last Admin: 08/04/21 07:20 Dose: 50 mg Documented by: FELIPE Memantine (Memantine Hcl 10 Mg Tablet) 10 mg PO DAILY [facility] Last Admin: 08/04/21 07:20 Dose: 10 mg Documented by: FELIPE Metoprolol Succinate (Metoprolol Succinate Er 50 Mg Tab.Er.24h) 50 mg PO DAILY [facility]; Protocol Last Admin: 08/04/21 07:21 Dose: 50 mg Documented by: FELIPE Morphine Sulfate (Morphine Sulfate 4 Mg/Ml Cartridge) 4 mg IVPUSH Q3H PRN; Protocol PRN Reason: Pain, severe Last Admin: 08/02/21 13:26 Dose: 4 mg Documented by: COTEMA Omeprazole (Omeprazole 20 Mg Capsule.Dr) 20 mg PO DAILY [facility] Last Admin: 08/04/21 07:20 Dose: 20 mg Documented by: FELIPE Ondansetron HCl (Ondansetron Hcl 4 Mg/2 Ml Vial) 4 mg IVPUSH Q8H PRN PRN Reason: Nausea Oxycodone HCl (Oxycodone Hcl Immed Release 5 Mg Tablet) 5 mg PO Q4H PRN PRN Reason: Pain, Moderate (Pain Scale 4-6 Last Admin: 08/04/21 07:20 Dose: 5 mg Documented by: FELIPE Pharmacy Consult (Consult Rx Perform Med Rec) 1 each MISCELLANE ONCE PRN PRN Reason: Consult order Labs CBC & Chem 7: 08/03/21 05:27 08/03/21 05:27 Labs: Laboratory Results - last 24 hr 08/03/21 08/03/21 08/03/21 11:05 15:41 19:54 POC Glucose 305 H 333 H 342 H 08/04/21 07:15 POC Glucose 293 H Microbiology Microbiology Results: Microbiology 08/02/21 15:10 Gram Stain - Final Abdomen - Abscess Routine Culture - Preliminary Enterococcus/Streptococcus sp Anaerobic Culture - Preliminary Culture in progress. Assessment and Plan (1) H/O: HTN (hypertension): Status: Acute (2) Postoperative intra-abdominal abscess: Status: Acute Assessment and Plan: 71-year-old man admitted by General surgery.? He is 9 days status post lap choly presenting with increased right upper quadrant pain, imaging is consistent with postoperative abscess in the gallbladder fossa. Following for medical management 1.Hypertension.? Poor control... Increase Losartan to 100mg daily Continue Metoprolol/Amlodipine as well 2.Gallbladder fossa abscess Continue Zosyn as ordered 3.Diabetes mellitus Sliding scale, ADA diet 4.Paroxysmal atrial fibrillation On lovenox...resume orals when deemed appropriate by Surgery DVT prophylaxis Lovenox Quality Stroke Does the patient have a stroke diagnosis?: No VTE Prior VTE?: No VTE Risk Level:: Surgical - high VTE Device Contraindication: N/A - Device Ordered VTE Drug Contraindication: Treatment Not Indicated ( interventional procedure planned)
[2021-08-04 11:40] LABS: Glucose, Whole Blood 315 mg/dL (60-115)
[2021-08-04 16:00] VITALS: BP 162/81; PULSE 63; RESP 18; TEMP 37; O2SAT 98
[2021-08-04 16:32] LABS: Glucose, Whole Blood 264 mg/dL (60-115)
[2021-08-04 19:32] VITALS: BP 158/64; PULSE 65; RESP 18; TEMP 37; O2SAT 96
[2021-08-04 20:36] LABS: Glucose, Whole Blood 392 mg/dL (60-115)
[2021-08-04] MEDS: Ezetimibe 10 MG TABLET PO (21:01)
[2021-08-04] MEDS: Apixaban 5 MG TABLET PO (21:01)
[2021-08-04] MEDS: Atorvastatin Calcium 40 MG TABLET PO (21:01)
[2021-08-04] MEDS: Acetaminophen 325 MG TABLET 650 MG PO (21:30)
[2021-08-04 23:50] VITALS: BP 141/77; PULSE 66; RESP 18; TEMP 36; O2SAT 95
[2021-08-05] MEDS: Piperacillin Sodium/Tazobactam 3.375 GM in 0.9 % Sodium Chloride 50 ML IV ×4 (02:21→20:25)
[2021-08-05 03:43] VITALS: BP 134/76; PULSE 65; RESP 18; TEMP 36; O2SAT 96
[2021-08-05 05:29] LABS: MANUAL DIFF FLAG NO
[2021-08-05 05:34] LABS: Basophils Absolute Auto 0.1 X10*3/uL (0.0-0.2); Basophils Percent Auto 0.9 % (0-2); Eosinophils Absolute Auto 0.3 X10*3/uL (0.0-0.4); Eosinophils Percent Auto 2.9 % (0-4); Hematocrit 43.5 % (42.0-52.0); Hemoglobin 14.3 g/dl (14.0-18.0); Imm Gran Abs Auto 0.09 X10*3/uL (0.00-0.03); Lymphocytes Absolute Auto 2.6 X10*3/uL (1.2-4.9); Lymphocytes Percent Auto 29.1 % (20-40); Mean Corpuscular HGB Conc 32.9 g/dl (31.0-36.0); Mean Corpuscular Hemoglobin 28.8 pg (27.0-33.0); Mean Corpuscular Volume 87.7 fL (80.0-98.0); Mean Platelet Volume 10.5 fL (9.4-12.4); Monocytes Absolute Auto 0.9 X10*3/uL (0.1-1.2); Monocytes Percent Auto 9.7 % (2-11); Neutrophils Absolute Auto 5.1 x10*3/uL (2.0-8.3); Neutrophils Percent Auto 56.4 % (45-73); Platelet Count 299 X10*3/uL (160-400); Red Blood Count 4.96 X10*6/uL (4.60-5.80); Red Cell Distribution Width 13.7 % (11.0-16.0); White Blood Count 9.1 X10*3/uL (4.8-10.8)
[2021-08-05 07:27] VITALS: BP 180/70; PULSE 59; RESP 17; TEMP 36.2; O2SAT 97
[2021-08-05 07:43] LABS: Glucose, Whole Blood 275 mg/dL (60-115)
[2021-08-05] MEDS: Insulin Lispro 100 UNIT/ML 3 ML VIAL SUBCUT ×7 (08:11→20:27)
--- NOTE | 2021-08-05 08:17 | P.PNGS_ITS ---
Subjective Subjective Date of Service: 08/05/21 <Shilpa Figueroa PA-C - Last Filed: 08/05/21 08:25> 08/05/21 <Karel Padilla MD - Last Filed: 08/05/21 12:16> Interval history: Feeling better. Tolerating solid diet. Has been OOB. Daughter nervous about discharge. <Shilpa Figueroa PA-C - Last Filed: 08/05/21 08:25> Physical Exam Vital Signs: Vital Signs: Last Vital Signs Temp 97.1 F 08/05/21 07:27 Pulse 59 08/05/21 07:27 Resp 17 08/05/21 07:27 BP 180/70 H 08/05/21 07:27 Pulse Ox 97 08/05/21 07:27 BMI result Body Mass Index 31.6 <Shilpa Figueroa PA-C - Last Filed: 08/05/21 08:25> Const: General: comfortable, no acute distress and alert <Shilpa Figueroa PA-C - Last Filed: 08/05/21 08:25> Resp: Effort & Inspection: normal respiratory effort <Shilpa Figueroa PA-C - Last Filed: 08/05/21 08:25> GI: Other: Drain with purulent output <Shilpa Figueroa PA-C - Last Filed: 08/05/21 08:25> Inspection: No distended <Shilpa Figueroa PA-C - Last Filed: 08/05/21 08:25> Palpation (GI): Soft to palpation, Tenderness to palpation present (GI) in the RUQ (decreasing) and no guarding <Shilpa Figueroa PA-C - Last Filed: 08/05/21 08:25> Skin: General skin exam: no rashes or lesions noted <ALTAGRACIA Gibson Last Filed: 08/05/21 08:25> Objective Data Active Medications Acetaminophen (Acetaminophen 325 Mg Tablet) 650 mg PO Q6H PRN PRN Reason: Fever Last Admin: 08/04/21 21:30 Dose: 650 mg Documented by: DONTRELLQC Amlodipine Besylate (Amlodipine Besylate 5 Mg Tablet) 5 mg PO DAILY [facility]; Protocol Last Admin: 08/04/21 07:21 Dose: 5 mg Documented by: FELIPE Apixaban (Apixaban 5 Mg Tablet) 5 mg PO BID [facility] Last Admin: 08/04/21 21:01 Dose: 5 mg Documented by: NICA Atorvastatin Calcium (Atorvastatin Calcium 40 Mg Tablet) 40 mg PO BEDTIME [facility] Last Admin: 08/04/21 21:01 Dose: 40 mg Documented by: NICA Dextrose (Dextrose 50 % 25 Gm/50 Ml Vial) 25 gm IVPUSH Q15M PRN; Protocol PRN Reason: per Hypoglycemia Standing Ord. Donepezil HCl (Donepezil Hcl 10 Mg Tablet) 10 mg PO DAILY [facility] Last Admin: 08/04/21 07:20 Dose: 10 mg Documented by: FELIPE Duloxetine HCl (Duloxetine Hcl 60 Mg Capsule.Dr) 60 mg PO DAILY [facility] Last Admin: 08/04/21 07:21 Dose: 60 mg Documented by: FELIPE Ezetimibe (Ezetimibe 10 Mg Tablet) 10 mg PO BEDTIME [facility] Last Admin: 08/04/21 21:01 Dose: 10 mg Documented by: NICA Glucose (Glucose Gel 15 Gm Gel..Gram.) 15 gm PO Q15M PRN; Protocol PRN Reason: per Hypoglycemia Standing Ord. Piperacillin Sod/Tazobactam (Sod 3.375 gm/ Sodium Chloride) 50 mls @ 100 mls/hr IV Q6H [facility] Last Infusion: 08/05/21 02:59 Dose: 0 mls/hr Documented by: NICA Insulin Human Lispro (Insulin Lispro 100 Unit/Ml 3 Ml Vial) 0 unit SUBCUT QID ACHS [facility]; Protocol Last Admin: 08/04/21 21:01 Dose: 10 unit Documented by: NICA Losartan Potassium (Losartan Potassium 50 Mg Tablet) 100 mg PO DAILY [facility]; Protocol Memantine (Memantine Hcl 10 Mg Tablet) 10 mg PO DAILY [facility] Last Admin: 08/04/21 07:20 Dose: 10 mg Documented by: FELIPE Metoprolol Succinate (Metoprolol Succinate Er 50 Mg Tab.Er.24h) 50 mg PO DAILY [facility]; Protocol Last Admin: 08/04/21 07:21 Dose: 50 mg Documented by: FELIPE Morphine Sulfate (Morphine Sulfate 4 Mg/Ml Cartridge) 4 mg IVPUSH Q3H PRN; Protocol PRN Reason: Pain, severe Last Admin: 08/02/21 13:26 Dose: 4 mg Documented by: COTEMA Omeprazole (Omeprazole 20 Mg Capsule.Dr) 20 mg PO DAILY [facility] Last Admin: 08/04/21 07:20 Dose: 20 mg Documented by: DABA Ondansetron HCl (Ondansetron Hcl 4 Mg/2 Ml Vial) 4 mg IVPUSH Q8H PRN PRN Reason: Nausea Oxycodone HCl (Oxycodone Hcl Immed Release 5 Mg Tablet) 5 mg PO Q4H PRN PRN Reason: Pain, Moderate (Pain Scale 4-6 Last Admin: 08/04/21 21:31 Dose: 5 mg Documented by: NICA Pharmacy Consult (Consult Rx Perform Med Rec) 1 each MISCELLANE ONCE PRN PRN Reason: Consult order <Shilpa Figueroa PA-C - Last Filed: 08/05/21 08:25> Labs CBC & Chem 7: : 08/05/21 05:13 08/03/21 05:27 <Shilpa Figueroa PA-C - Last Filed: 08/05/21 08:25> Labs: Laboratory Results - last 24 hr 08/04/21 08/04/21 08/04/21 11:21 16:26 19:35 MCV MCH MCHC RDW Plt Count MPV Immature Gran % (Auto) Neut % (Auto) Lymph % (Auto) [place] % (Auto) Eos % (Auto) Baso % (Auto) Lymph # (Auto) [place] # (Auto) Eos # (Auto) Baso # (Auto) Abs Immat Gran (auto) Absolute Neuts (auto) Absolute Nucleated RBC Nucleated RBC % (auto) POC Glucose 315 H 264 H 392 H* 08/05/21 08/05/21 05:13 07:29 MCV 87.7 MCH 28.8 MCHC 32.9 RDW 13.7 Plt Count 299 MPV 10.5 Immature Gran % (Auto) 1.0 H Neut % (Auto) 56.4 Lymph % (Auto) 29.1 [place] % (Auto) 9.7 Eos % (Auto) 2.9 Baso % (Auto) 0.9 Lymph # (Auto) 2.6 [place] # (Auto) 0.9 Eos # (Auto) 0.3 Baso # (Auto) 0.1 Abs Immat Gran (auto) 0.09 H Absolute Neuts (auto) 5.1 Absolute Nucleated RBC 0.000 Nucleated RBC % (auto) 0.0 POC Glucose 275 H <Shilpa Figueroa PA-C - Last Filed: 08/05/21 08:25> Microbiology Microbiology Results: Microbiology 08/02/21 15:10 Gram Stain - Final Abdomen - Abscess Routine Culture - Final Enterococcus faecalis Anaerobic Culture - Preliminary Culture in progress. 07/30/21 19:55 Blood Culture - Final Blood - Venous No growth after 5 days. 07/30/21 19:39 Blood Culture - Final Blood - Venous No growth after 5 days. <Shilpa Figueroa PA-C - Last Filed: 08/05/21 08:25> Procedures Date of Service Date of Service: 08/05/21 <Shilpa Figueroa PA-C - Last Filed: 08/05/21 08:25> Progress Note: A&P Assessment and plan (1) Postoperative intra-abdominal abscess: Status: Acute <Shilpa Figueroa PA-C - Last Filed: 08/05/21 08:25> Assessment and Plan: Continues to feel better Good oral intake Feels more comfortable No fever Abdomen soft SUZAN drain with very minimal output Plan is to go to rehab tomorrow -[facility] Discussed with daughter Robyn Will keep SUZAN in place on discharge Seen and examined - agree with GUERA Figueroa <Karel Padilla MD - Last Filed: 08/05/21 12:16> (2) H/O: HTN (hypertension): Status: Acute <Shilpa Figueroa PA-C - Last Filed: 08/05/21 08:25> Assessment and Plan: 71 year old male almost 2 weeks s/p lap CCY admitted with abscess gallbladder fossa. S/p CT guided drainage with drain placement. Abscess cultures grew Enterococcus. WBC now normalized. Continue pain control. Continue Zosyn. Plan for d/c to [facility] tomorrow with drain in place. Transition to PO abx. Hypertension- SBP remains elevated. Losartan increased for this morning. On metoprolol, norvasc. Diabetes- POCs have been high 200s-300s. On sliding scale. On glimepiride, novolog, jardiance at home which have been held. Appreciate hospitalist input regarding management. <Shilpa Figueroa PA-C - Last Filed: 08/05/21 08:25> Fall Risk Details Current Medications: Current Medications Acetaminophen (Acetaminophen 325 Mg Tablet) 650 mg PO Q6H PRN PRN Reason: Fever Last Admin: 08/04/21 21:30 Dose: 650 mg Documented by: Amlodipine Besylate (Amlodipine Besylate 5 Mg Tablet) 5 mg PO DAILY [facility]; Protocol Last Admin: 08/04/21 07:21 Dose: 5 mg Documented by: Apixaban (Apixaban 5 Mg Tablet) 5 mg PO BID [facility] Last Admin: 08/04/21 21:01 Dose: 5 mg Documented by: Atorvastatin Calcium (Atorvastatin Calcium 40 Mg Tablet) 40 mg PO BEDTIME [facility] Last Admin: 08/04/21 21:01 Dose: 40 mg Documented by: Dextrose (Dextrose 50 % 25 Gm/50 Ml Vial) 25 gm IVPUSH Q15M PRN; Protocol PRN Reason: per Hypoglycemia Standing Ord. Donepezil HCl (Donepezil Hcl 10 Mg Tablet) 10 mg PO DAILY [facility] Last Admin: 08/04/21 07:20 Dose: 10 mg Documented by: Duloxetine HCl (Duloxetine Hcl 60 Mg Capsule.Dr) 60 mg PO DAILY [facility] Last Admin: 08/04/21 07:21 Dose: 60 mg Documented by: Ezetimibe (Ezetimibe 10 Mg Tablet) 10 mg PO BEDTIME [facility] Last Admin: 08/04/21 21:01 Dose: 10 mg Documented by: Glucose (Glucose Gel 15 Gm Gel..Gram.) 15 gm PO Q15M PRN; Protocol PRN Reason: per Hypoglycemia Standing Ord. Piperacillin Sod/Tazobactam (Sod 3.375 gm/ Sodium Chloride) 50 mls @ 100 mls/hr IV Q6H [facility] Last Infusion: 08/05/21 02:59 Dose: Infused Documented by: Insulin Human Lispro (Insulin Lispro 100 Unit/Ml 3 Ml Vial) 0 unit SUBCUT QIDACHS [facility]; Protocol Last Admin: 08/04/21 21:01 Dose: 10 unit Documented by: Losartan Potassium (Losartan Potassium 50 Mg Tablet) 100 mg PO DAILY [facility]; Protocol Memantine (Memantine Hcl 10 Mg Tablet) 10 mg PO DAILY [facility] Last Admin: 08/04/21 07:20 Dose: 10 mg Documented by: Metoprolol Succinate (Metoprolol Succinate Er 50 Mg Tab.Er.24h) 50 mg PO DAILY [facility]; Protocol Last Admin: 08/04/21 07:21 Dose: 50 mg Documented by: Morphine Sulfate (Morphine Sulfate 4 Mg/Ml Cartridge) 4 mg IVPUSH Q3H PRN; Protocol PRN Reason: Pain, severe Last Admin: 08/02/21 13:26 Dose: 4 mg Documented by: Omeprazole (Omeprazole 20 Mg Capsule.Dr) 20 mg PO DAILY [facility] Last Admin: 08/04/21 07:20 Dose: 20 mg Documented by: Ondansetron HCl (Ondansetron Hcl 4 Mg/2 Ml Vial) 4 mg IVPUSH Q8H PRN PRN Reason: Nausea Oxycodone HCl (Oxycodone Hcl Immed Release 5 Mg Tablet) 5 mg PO Q4H PRN PRN Reason: Pain, Moderate (Pain Scale 4-6 Last Admin: 08/04/21 21:31 Dose: 5 mg Documented by: Pharmacy Consult (Consult Rx Perform Med Rec) 1 each MISCELLANE ONCE PRN PRN Reason: Consult order <Shilpa Figueroa PA-C - Last Filed: 08/05/21 08:25> Time Spent With Patient Time: Total time spent is greater than 50% in coordination of care (as documented) at patient's floor/unit and/or counseling patient: <Shilpa Figueroa PA-C - Last Filed: 08/05/21 08:25> Time with patient: 15 - 24 minutes <Shilpa Figueroa PA-C - Last Filed: 08/05/21 08:25> Quality Stroke Does the patient have a stroke diagnosis?: No <ALTAGRACIA Gibson Last Filed: 08/05/21 08:25> VTE Prior VTE?: No <ALTAGRACIA Gibson Last Filed: 08/05/21 08:25> VTE Risk Level:: Surgical - high <ALTAGRACIA Gibson Last Filed: 08/05/21 08:25> VTE Device Contraindication: N/A - Device Ordered <ALTAGRACIA Gibson Filed: 08/05/21 08:25> VTE Drug Contraindication: Treatment Not Indicated ( interventional procedure planned) <Shilpa Figueroa PA-C - Last Filed: 08/05/21 08:25>
[2021-08-05] MEDS: Memantine HCl 10 MG TABLET PO ×2 (08:18→20:26)
[2021-08-05] MEDS: DULoxetine HCl 60 MG CAPSULE.DR PO ×2 (08:18→20:26)
[2021-08-05] MEDS: Omeprazole 20 MG CAPSULE.DR PO (08:18)
[2021-08-05] MEDS: amLODIPine Besylate 5 MG TABLET PO ×2 (08:20→10:35)
[2021-08-05] MEDS: Apixaban 5 MG TABLET PO ×2 (08:21→20:26)
[2021-08-05] MEDS: Metoprolol Succinate ER 50 MG TAB.ER.24H PO (08:21)
[2021-08-05] MEDS: Donepezil HCl 10 MG TABLET PO (08:22)
[2021-08-05] MEDS: Losartan Potassium 50 MG TABLET 100 MG PO (08:28)
--- NOTE | 2021-08-05 09:54 | P.PNIM_ITS ---
Subjective Subjective Date of Service: 08/05/21 Interval History: f/u on medical consult for management of HTN, Diabetes Review of Systems Denies chest pain Denies shortness of breath Denies nausea vomiting diarrhea Physical Exam Vital Signs: Vital Signs: Last Vital Signs Temp 97.1 F 08/05/21 07:27 Pulse 59 08/05/21 07:27 Resp 17 08/05/21 07:27 BP 180/70 H 08/05/21 07:27 Pulse Ox 97 08/05/21 07:27 BMI result Body Mass Index 31.6 Const: Other: General: AO X 3, no acute distress Resp: CTA bilateral CVS: S1,S2,RRR GI: +BS, NT, no distention Skin: No rash Neuro: motor grossly intact Psych: appropriate affect Objective Data Active Medications Acetaminophen (Acetaminophen 325 Mg Tablet) 650 mg PO Q6H PRN PRN Reason: Fever Last Admin: 08/04/21 21:30 Dose: 650 mg Documented by: NICA Amlodipine Besylate (Amlodipine Besylate 5 Mg Tablet) 5 mg PO DAILY [facility]; Protocol Last Admin: 08/05/21 08:20 Dose: 5 mg Documented by: EVANGELISTA Apixaban (Apixaban 5 Mg Tablet) 5 mg PO BID [facility] Last Admin: 08/05/21 08:21 Dose: 5 mg Documented by: EVANGELISTA Atorvastatin Calcium (Atorvastatin Calcium 40 Mg Tablet) 40 mg PO BEDTIME [facility] Last Admin: 08/04/21 21:01 Dose: 40 mg Documented by: NICA Dextrose (Dextrose 50 % 25 Gm/50 Ml Vial) 25 gm IVPUSH Q15M PRN; Protocol PRN Reason: per Hypoglycemia Standing Ord. Donepezil HCl (Donepezil Hcl 10 Mg Tablet) 10 mg PO DAILY [facility] Last Admin: 08/05/21 08:22 Dose: 10 mg Documented by: EVANGELISTA Duloxetine HCl (Duloxetine Hcl 60 Mg Capsule.) 60 mg PO DAILY [facility] Last Admin: 08/05/21 08:18 Dose: 60 mg Documented by: EVANGELISTA Ezetimibe (Ezetimibe 10 Mg Tablet) 10 mg PO BEDTIME [facility] Last Admin: 08/04/21 21:01 Dose: 10 mg Documented by: NICA Glucose (Glucose Gel 15 Gm Gel..Gram.) 15 gm PO Q15M PRN; Protocol PRN Reason: per Hypoglycemia Standing Ord. Piperacillin Sod/Tazobactam (Sod 3.375 gm/ Sodium Chloride) 50 mls @ 100 mls/hr IV Q6H [facility] Last Infusion: 08/05/21 09:42 Dose: 0 mls/hr Documented by: FELIPE Insulin Human Lispro (Insulin Lispro 100 Unit/Ml 3 Ml Vial) 0 unit SUBCUT QIDACHS [facility]; Protocol Last Admin: 08/05/21 08:11 Dose: 6 unit Documented by: EVANGELISTA Losartan Potassium (Losartan Potassium 50 Mg Tablet) 100 mg PO DAILY [facility]; Protocol Last Admin: 08/05/21 08:28 Dose: 100 mg Documented by: EVANGELISTA Memantine (Memantine Hcl 10 Mg Tablet) 10 mg PO DAILY [facility] Last Admin: 08/05/21 08:18 Dose: 10 mg Documented by: EVANGELISTA Metoprolol Succinate (Metoprolol Succinate Er 50 Mg Tab.Er.24h) 50 mg PO DAILY [facility]; Protocol Last Admin: 08/05/21 08:21 Dose: 50 mg Documented by: EVANGELISTA Morphine Sulfate (Morphine Sulfate 4 Mg/Ml Cartridge) 4 mg IVPUSH Q3H PRN; Protocol PRN Reason: Pain, severe Last Admin: 08/02/21 13:26 Dose: 4 mg Documented by: DEVAN Omeprazole (Omeprazole 20 Mg Capsule.Dr) 20 mg PO DAILY [facility] Last Admin: 08/05/21 08:18 Dose: 20 mg Documented by: EVANGELISTA Ondansetron HCl (Ondansetron Hcl 4 Mg/2 Ml Vial) 4 mg IVPUSH Q8H PRN PRN Reason: Nausea Oxycodone HCl (Oxycodone Hcl Immed Release 5 Mg Tablet) 5 mg PO Q4H PRN PRN Reason: Pain, Moderate (Pain Scale 4-6 Last Admin: 08/04/21 21:31 Dose: 5 mg Documented by: NICA Pharmacy Consult (Consult Rx Perform Med Rec) 1 each MISCELLANE ONCE PRN PRN Reason: Consult order Labs CBC & Chem 7: 08/05/21 05:13 08/03/21 05:27 Labs: Laboratory Results - last 24 hr 08/04/21 08/04/2121 11:21 16:26 19:35 MCV MCH MCHC RDW Plt Count MPV Immature Gran % (Auto) Neut % (Auto) Lymph % (Auto) [place] % (Auto) Eos % (Auto) Baso % (Auto) Lymph # (Auto) [place] # (Auto) Eos # (Auto) Baso # (Auto) Abs Immat Gran (auto) Absolute Neuts (auto) Absolute Nucleated RBC Nucleated RBC % (auto) POC Glucose 315 H 264 H 392 H* 08/05/21 08/05/21 05:13 07:29 MCV 87.7 MCH 28.8 MCHC 32.9 RDW 13.7 Plt Count 299 MPV 10.5 Immature Gran % (Auto) 1.0 H Neut % (Auto) 56.4 Lymph % (Auto) 29.1 [place] % (Auto) 9.7 Eos % (Auto) 2.9 Baso % (Auto) 0.9 Lymph # (Auto) 2.6 [place] # (Auto) 0.9 Eos # (Auto) 0.3 Baso # (Auto) 0.1 Abs Immat Gran (auto) 0.09 H Absolute Neuts (auto) 5.1 Absolute Nucleated RBC 0.000 Nucleated RBC % (auto) 0.0 POC Glucose 275 H Microbiology Microbiology Results: Microbiology 08/02/21 15:10 Gram Stain - Final Abdomen - Abscess Routine Culture - Final Enterococcus faecalis Anaerobic Culture - Preliminary Culture in progress. 07/30/21 19:55 Blood Culture - Final Blood - Venous No growth after 5 days. 07/30/21 19:39 Blood Culture - Final Blood - Venous No growth after 5 days. Assessment and Plan (1) H/O: HTN (hypertension): Status: Acute (2) Postoperative intra-abdominal abscess: Status: Acute Assessment and Plan: 71-year-old man admitted by General surgery.? He is 9 days status post lap choly presenting with increased right upper quadrant pain, imaging is consistent with postoperative abscess in the gallbladder fossa. Following for medical management 1.Hypertension--uncontrolled -Losartan incrased to `100 08/04 -continue Toprolol at 50 -Incrase Norvasc to 10 and if remains high, add hydralazine 2.Gallbladder fossa abscess Continue Zosyn as ordered, PO Augmentin at discharge 3.Diabetes mellitus--uncontrolled. He is on Glimerperide, Toujeo at home not on formulary, add pre meal insulin. 4.Paroxysmal atrial fibrillation--Toprolol for rate control, Eliquis for anticoagulation DVT prophylaxis Eliquis Quality Stroke Does the patient have a stroke diagnosis?: No VTE Prior VTE?: No VTE Risk Level:: Surgical - high VTE Device Contraindication: N/A - Device Ordered VTE Drug Contraindication: Treatment Not Indicated ( interventional procedure planned)
[2021-08-05] MEDS: Cholecalciferol (Vitamin D3) 25 MCG TABLET PO (10:34)
[2021-08-05] MEDS: Ascorbic Acid 250 MG TABLET PO (10:36)
[2021-08-05] MEDS: Cyanocobalamin (Vitamin B-12) 1,000 MCG TABLET 1000 MCG PO (10:36)
[2021-08-05 11:22] VITALS: BP 142/72; PULSE 70; RESP 16; TEMP 36.2; O2SAT 94
[2021-08-05 11:28] LABS: Glucose, Whole Blood 389 mg/dL (60-115)
--- NOTE | 2021-08-05 14:48 | PM.DS ---
DS: Providers Provider Date of Service: 08/06/21 <Shilpa Figueroa PA-C - Last Filed: 08/06/21 10:39> Date of admission: 07/30/21 22:13 <ALTAGRACIA Gibson Last Filed: 08/06/21 10:39> Primary care physician: Unknown Physician <ALTAGRACIA Gibson Last Filed: 08/06/21 10:39> Attending physician on admission: Tawana Kevin <ALTAGRACIA Gibson Last Filed: 08/06/21 10:39> Consults: 07/31/21 00:28 Consult to Hospitalist Routine Consulting Provider: Hospitalist Reason For Exam: medical management <ALTAGRACIA Gibson Filed: 08/06/21 10:39> Attending physician on discharge: Karel Padilla <ALTAGRACIA Gibson Last Filed: 08/06/21 10:39> DS: Transfer Hospital Acceptance Name of Facility: [facility] <ALTAGRACIA Gibson Last Filed: 08/06/21 10:39> DS: Diagnosis Discharge Diagnosis (1) Postoperative intra-abdominal abscess: Status: Acute <ALTAGRACIA Gibson Filed: 08/06/21 10:39> (2) H/O: HTN (hypertension): Status: Acute <ALTAGRACIA Gibson Filed: 08/06/21 10:39> DS: Summary Hospital Course Hospital Course: BRIEF HPI: Vinod Rojas is a 71 year old male who is 8 days post laparoscopic cholecystectomy for acute cholecystitis, discharged 4 days ago, presenting to the emergency department with a 2-3 day history of worsening right upper quadrant abdominal pain. He does not report fever, chills, diarrhea, nausea or vomiting. He is hungry. He reports that the pain is different from the pain he had prior to cholecystectomy and immediately afterward. He described the pain as severe, worsened by movement and by trying to stand up straight. During his recent admission, blood cultures were positive for E coli and Clostridium perfringens. He was treated in the hospital with Rocephin and metronidazole and was discharged on cefuroxime and metronidazole. Laboratory studies in the [place] [address] and an alkaline phosphatase of 589. Transaminases and total bilirubin were normal. CT scan of the abdomen and pelvis was obtained and demonstrated a complex collection in the gallbladder fossa. HOSPITAL COURSE: The patient was admitted to the surgical service for further treatment of the intraabdominal abscess. He was started on IV Zosyn. He has a history atrial fibrillation and has been chronically anticoagulated on Eliquis. Eliquis was held while awaiting CT guided drainage. Hospitalist consultation was obtained for management of his medical comorbidities. He improved symptomatically while awaiting drainage. His WBC improved. On 08/02/21, CT guided drainage of gallbladder abscess was performed without complication. He tolerated this well. His diet was advanced back to solids following which he was tolerating. He continued to improve symptomatically following this. He was restarted on his eliquis. His WBC normalized. Abscess cultures grew Enterococcus faecalis. He remained inpatient for prolonged IV antibiotic therapy and completed a 7 day course of IV zosyn. His hypertension was poorly controlled while inpatient with SBP in high 170s-180s. Losartan was increased from 50 to 100mg PO daily. It remained uncontrolled and Norvasc 5mg was increased to 10mg PO daily with improvement. He will need further follow up regarding his antihypertensive medication management. The patient was transferred to [facility] on 08/06/21 in stable condition on a PO course of Augmentin. His drain is still in place. He is to follow up with Dr. Padilla in 1 week. <Shilpa Figueroa PA-C - Last Filed: 08/06/21 10:39> Status at Discharge Functional status at discharge: independent ambulation <ALTAGRACIA Gibson Last Filed: 08/06/21 10:39> Overall status at discharge: patient is progressing back to baseline <ALTAGRACIA Gibson Last Filed: 08/06/21 10:39> Time Spent with Patient Time attestation: Total time spent providing and/or coordinating discharge services: <ALTAGRACIA Gibson Last Filed: 08/06/21 10:39> Discharge coordination time: Greater than 30 minutes <ALTAGRACIA Gibson Last Filed: 08/06/21 10:39> Quality: Stroke Does the patient have a stroke diagnosis?: No <Shilpa Sadlerbodeau GUERAJean-Paul - Last Filed: 08/06/21 10:39> Physical Exam Vital Signs: Vital Signs: Last Vital Signs Temp 97.2 F 08/05/21 11:22 Pulse 70 08/05/21 11:22 Resp 16 08/05/21 11:22 BP 142/72 H 08/05/21 11:22 Pulse Ox 94 08/05/21 11:22 BMI result Body Mass Index 31.6 <Shilpa SadlerGUERA wilsonJean-Paul - Last Filed: 08/06/21 10:39> Const: General: comfortable and no acute distress <Shilpa SadlerGUERA wilsonJoseChan - Last Filed: 08/06/21 10:39> Resp: Effort & Inspection: normal respiratory effort <Shilpa SadlerGUERA wilsonJean-Paul - Last Filed: 08/06/21 10:39> GI: Other: SUZAN bulb with bilious drainage <Shilpa Figueroa PA-C - Last Filed: 08/06/21 10:39> Inspection: No distended <Shilpa SadlerbodeauGUERAJean-Paul - Last Filed: 08/06/21 10:39> Palpation (GI): Soft to palpation, Tenderness to palpation present (GI) in the RUQ and no guarding <Shilpa Sadlerkatie GUERAJoseChan - Last Filed: 08/06/21 10:39> Skin: General skin exam: no rashes or lesions noted <Shilpa HenryGUERA wilsonJean-Paul - Last Filed: 08/06/21 10:39> DS: Data Data Completed and Pending Completed studies during hospitalization [Text1]: Procedures CT GUIDED DRAINAGE, PERITONEAL ABSCESS (08/02/21) <Shilpa Henry, GUERAJean-Paul - Last Filed: 08/06/21 10:39> Labs on day of discharge: Laboratory Results - last 24 hr 08/04/21 08/04/21 08/05/21 16:26 19:35 05:13 WBC 9.1 RBC 4.96 Hgb 14.3 Hct 43.5 MCV 87.7 MCH 28.8 MCHC 32.9 RDW 13.7 Plt Count 299 MPV 10.5 Immature Gran % (Auto) 1.0 H Neut % (Auto) 56.4 Lymph % (Auto) 29.1 [place] % (Auto) 9.7 Eos % (Auto) 2.9 Baso % (Auto) 0.9 Lymph # (Auto) 2.6 [place] # (Auto) 0.9 Eos # (Auto) 0.3 Baso # (Auto) 0.1 Abs Immat Gran (auto) 0.09 H Absolute Neuts (auto) 5.1 Absolute Nucleated RBC 0.000 Nucleated RBC % (auto) 0.0 POC Glucose 264 H 392 H* 08/05/21 08/05/21 07:29 11:20 WBC RBC Hgb Hct MCV MCH MCHC RDW Plt Count MPV Immature Gran % (Auto) Neut % (Auto) Lymph % (Auto) [place] % (Auto) Eos % (Auto) Baso % (Auto) Lymph # (Auto) [place] # (Auto) Eos # (Auto) Baso # (Auto) Abs Immat Gran (auto) Absolute Neuts (auto) Absolute Nucleated RBC Nucleated RBC % (auto) POC Glucose 275 H 389 H* Preliminary micro results at discharge 08/02/21 15:10 Anaerobic Culture - Preliminary Abdomen - Abscess Culture in progress. <Shilpa Figueroa PA-C - Last Filed: 08/06/21 10:39> Discharge Plan Discharge Patient Disposition: Xfer SNF <Shilpa Figueroa PA-C - Last Filed: 08/06/21 10:39> Discharge Diagnosis: intraabdominal abscess <Shilpa Figueroa PA-C - Last Filed: 08/06/21 10:39> intraabdominal abscess <Karel Padilla MD - Last Filed: 08/06/21 13:13> Referrals: [facility] [Other] - 1 Week ([facility] for [facility] transportation action bls art 2pm) Karel Padilla MD [Physician] - 1 Week Physician,Unknown J [Primary Care Provider] - 1 Week <Shilpa Figueroa PA-C - Last Filed: 08/06/21 10:39> Discharge Medications: New losartan 100 mg tablet 100 mg PO DAILY Qty: 60 RF: 0 amoxicillin-pot clavulanate [Augmentin] 875-125 mg tablet 1 tab PO BID Qty: 14 RF: 0 amlodipine [Norvasc] 10 mg tablet 10 mg PO DAILY Qty: 60 RF: 0 Continued donepezil 10 mg tablet 1 tab PO DAILY RF: 0 glimepiride 4 mg tablet 1 tab PO DAILY RF: 0 insulin aspart U-100 [Novolog Flexpen U-100 Insulin] 100 unit/mL (3 mL) insulin pen See Protocol sliding scale dose subcut QIDACHS PRN (Reason: Hyperglycemia) RF: 0 ezetimibe-simvastatin 10-80 mg tablet 1 tab PO BEDTIME RF: 0 Jardiance 25 mg tablet 1 tab PO DAILY RF: 0 Toujeo SoloStar U-300 Insulin 300 unit/mL (1.5 mL) insulin pen 49 unit subcut DAILY RF: 0 pantoprazole 40 mg tablet,delayed release (DR/EC) 1 tab PO DAILY RF: 0 metoprolol succinate 50 mg tablet extended release 24 hr 1 tab PO DAILY RF: 0 duloxetine 60 mg capsule,delayed release(DR/EC) 60 mg PO BID RF: 0 cyanocobalamin (vitamin B-12) 1,000 mcg Tablet 1,000 mcg PO DAILY RF: 0 calcium carbonate [Calcium 500] 500 mg calcium (1,250 mg) Tablet 1,000 mg PO BID RF: 0 ascorbic acid (vitamin C) [Vitamin C] 500 mg Tablet 250 mg PO DAILY RF: 0 cholecalciferol (vitamin D3) [Vitamin D3] 25 mcg (1,000 unit) Tablet 25 mcg PO DAILY RF: 0 memantine 10 mg tablet 10 mg PO BID RF: 0 Eliquis 5 mg Tablet 5 mg PO BID Qty: 60 RF: 0 oxycodone 5 mg tablet 5 mg PO Q8H PRN (Reason: pain) Qty: 9 RF: 0 Discontinued losartan 50 mg tablet 1 tab PO DAILY RF: 0 metronidazole 500 mg Tablet 500 mg PO Q8H Qty: 30 RF: 0 cefuroxime axetil 500 mg tablet 500 mg PO BID Qty: 20 RF: 0 <ALTAGRACIA Gibson Last Filed: 08/06/21 10:39> Discharge Orders: Discharge Order (Routine); Ordered 08/06/21 Ordered By: Shilpa Figueroa <ALTAGRACIA Gibson Last Filed: 08/06/21 10:39> Diet: diabetic diet <ALTAGRACIA Gibson Filed: 08/06/21 10:39> diabetic diet <Karel Padilla MD - Last Filed: 08/06/21 13:13> Activity on Discharge: No heavy lifting <Shilpa Figueroa PA-C - Last Filed: 08/06/21 10:39> No heavy lifting <Karel Padilla MD - Last Filed: 08/06/21 13:13> Stand Alone Forms: Patient Portal Discharge page <Shilpa Figueroa PA-C - Last Filed: 08/06/21 10:39> Activity Restrictions/Additional Instructions: Follow up in office with Dr. Padilla in 1 week. ([phone]) No heavy lifting (>10-20lbs)! Drain care: empty BID and PRN. Record output. Dressing change q 2-3 days. Call Your Doctor If: -Your temperature exceeds 101.5? F -You experience excessive pain or swelling -You have an unexpected reaction to medication -You have excessive bleeding -You experience continued vomiting/nausea -Your incision begins to separate -Your incision shows signs of infection such as increased redness, swelling, excessive pain, drainage (light blood or clear fluid is normal) or heat <Shilpa Figueroa PA-C - Last Filed: 08/06/21 10:39> Care Plan Goals: Return to baseline health and gradual return to activity following recovery period. <Shilpa Figueroa PA-C - Last Filed: 08/06/21 10:39> Health Concerns: recent lap CCY with intraabdominal abscess HTN Diabetes <Shilpa Figueroa PA-C - Last Filed: 08/06/21 10:39> Plan of Treatment: Antibiotics, continue drain <Shilpa Figueroa PA-C - Last Filed: 08/06/21 10:39> Assessment: Improved <Shilpa Figueroa PA-C - Last Filed: 08/06/21 10:39>
[2021-08-05 15:12] VITALS: BP 123/78; PULSE 64; RESP 16; TEMP 36.3; O2SAT 91
[2021-08-05 15:31] LABS: Glucose, Whole Blood 305 mg/dL (60-115)
[2021-08-05 19:19] VITALS: BP 154/67; PULSE 62; RESP 14; TEMP 36.2; O2SAT 94
[2021-08-05 20:14] LABS: Glucose, Whole Blood 362 mg/dL (60-115)
[2021-08-05] MEDS: Atorvastatin Calcium 40 MG TABLET PO (20:25)
[2021-08-05] MEDS: oxyCODONE HCl Immed Release 5 MG TABLET PO (20:25)
[2021-08-05] MEDS: Ezetimibe 10 MG TABLET PO (20:26)
[2021-08-05] MEDS: Acetaminophen 325 MG TABLET 650 MG PO (20:26)
[2021-08-06] VITALS: BP 147/77; PULSE 61; RESP 17; TEMP 36.1; O2SAT 97
[2021-08-06] MEDS: Piperacillin Sodium/Tazobactam 3.375 GM in 0.9 % Sodium Chloride 50 ML IV ×2 (01:47→07:29)
[2021-08-06 03:42] VITALS: BP 139/75; PULSE 64; RESP 15; TEMP 36.1; O2SAT 96
[2021-08-06 07:23] VITALS: BP 167/93; PULSE 74; RESP 18; TEMP 36.1; O2SAT 97
[2021-08-06] MEDS: Insulin Lispro 100 UNIT/ML 3 ML VIAL SUBCUT ×4 (07:29→11:57)
[2021-08-06] MEDS: oxyCODONE HCl Immed Release 5 MG TABLET PO ×2 (07:29→11:57)
[2021-08-06 07:34] LABS: Glucose, Whole Blood 279 mg/dL (60-115)
--- NOTE | 2021-08-06 08:52 | P.PNGS_ITS ---
Subjective Subjective Date of Service: 08/06/21 <Shilpa Figueroa PA-C - Last Filed: 08/06/21 08:58> 08/06/21 <Karel Padilla MD - Last Filed: 08/06/21 13:13> Interval history: Feeling ok, weak. Nervous about going to rehab. Pain is improving. Tolerating solid diet. OOB and ambulating without difficulty. <Shilpa Figueroa PA-C - Last Filed: 08/06/21 08:58> Physical Exam Vital Signs: Vital Signs: Last Vital Signs Temp 97.0 F 08/06/21 07:23 Pulse 74 08/06/21 07:23 Resp 18 08/06/21 07:23 BP 167/93 H 08/06/21 07:23 Pulse Ox 97 08/06/21 07:23 BMI result Body Mass Index 31.6 <Shilpa Figueroa PA-C - Last Filed: 08/06/21 08:58> Const: General: comfortable and no acute distress <DARRON Gibson - Last Filed: 08/06/21 08:58> Resp: Effort & Inspection: normal respiratory effort <Shilpa Figueroa PA-C - Last Filed: 08/06/21 08:58> GI: Other: Drainage less purulent appearing, more bilious in nature today <Shilpa Figueroa PA-C - Last Filed: 08/06/21 08:58> Inspection: No distended <Shilpa Figueroa PA-C - Last Filed: 08/06/21 08 :58> Palpation (GI): Soft to palpation and Tenderness to palpation present (GI) (mild, RUQ) <Shilpa Figueroa PA-C - Last Filed: 08/06/21 08:58> Skin: Other: warm and dry <ALTAGRACIA Gibson Last Filed: 08/06/21 08:58> General skin exam: no rashes or lesions noted <ALTAGRACIA Gibson Last Filed: 08/06/21 08:58> Objective Data Active Medications Acetaminophen (Acetaminophen 325 Mg Tablet) 650 mg PO Q6H PRN PRN Reason: Fever Last Admin: 08/05/21 20:26 Dose: 650 mg Documented by: NICA Amlodipine Besylate (Amlodipine Besylate 10 Mg Tablet) 10 mg PO DAILY [facility]; Protocol Apixaban (Apixaban 5 Mg Tablet) 5 mg PO BID [facility] Last Admin: 08/05/21 20:26 Dose: 5 mg Documented by: NICA Ascorbic Acid (Ascorbic Acid 250 Mg Tablet) 250 mg PO DAILY [facility] Last Admin: 08/05/21 10:36 Dose: 250 mg Documented by: EVANGELISTA Atorvastatin Calcium (Atorvastatin Calcium 40 Mg Tablet) 40 mg PO BEDTIME [facility] Last Admin: 08/05/21 20:25 Dose: 40 mg Documented by: NICA Calcium Carbonate (Calcium Carbonate 500 Mg Tablet) 1,000 mg PO BID [facility] Last Admin: 08/05/21 20:26 Dose: 1,000 mg Documented by: NICA Cyanocobalamin (Cyanocobalamin (Vitamin B-12) 1,000 Mcg Tablet) 1,000 mcg PO DAILY [facility] Last Admin: 08/05/21 10:36 Dose: 1,000 mcg Documented by: EVANGELISTA Dextrose (Dextrose 50 % 25 Gm/50 Ml Vial) 25 gm IVPUSH Q15M PRN; Protocol PRN Reason: per Hypoglycemia Standing Ord. Donepezil HCl (Donepezil Hcl 10 Mg Tablet) 10 mg PO DAILY [facility] Last Admin: 08/05/21 08:22 Dose: 10 mg Documented by: EVANGELISTA Duloxetine HCl (Duloxetine Hcl 60 Mg Capsule.) 60 mg PO DAILY [facility] Last Admin: 08/05/21 08:18 Dose: 60 mg Documented by: EVANGELISTA Duloxetine HCl (Duloxetine Hcl 60 Mg Capsule.) 60 mg PO BID [facility] Last Admin: 08/05/21 20:26 Dose: 60 mg Documented by: NICA Ezetimibe (Ezetimibe 10 Mg Tablet) 10 mg PO BEDTIME [facility] Last Admin: 08/05/21 20:26 Dose: 10 mg Documented by: NICA Glipizide (Glipizide 10 Mg Tablet) 10 mg PO DAILY [facility] Glucose (Glucose Gel 15 Gm Gel..Gram.) 15 gm PO Q15M PRN; Protocol PRN Reason: per Hypoglycemia Standing Ord. Piperacillin Sod/Tazobactam (Sod 3.375 gm/ Sodium Chloride) 50 mls @ 100 mls/hr IV Q6H [facility] Last Infusion: 08/06/21 08:13 Dose: 0 mls/hr Documented by: NICA Insulin Glargine (Insulin Glargine,Hum.Rec.Anlog 100 Unit/Ml 10 Ml Vial) 39 unit SUBCUT DAILY [facility] Insulin Human Lispro (Insulin Lispro 100 Unit/Ml 3 Ml Vial) 0 unit SUBCUT QIDACHS [facility]; Protocol Last Admin: 08/06/21 07:29 Dose: 6 unit Documented by: HUSSEIN Insulin Human Lispro (Insulin Lispro 100 Unit/Ml 3 Ml Vial) 5 unit SUBCUT QIDACHS [facility] Last Admin: 08/06/21 07:30 Dose: 5 unit Documented by: HUSSEIN Losartan Potassium (Losartan Potassium 50 Mg Tablet) 100 mg PO DAILY [facility]; Protocol Last Admin: 08/05/21 08:28 Dose: 100 mg Documented by: EVANGELISTA Memantine (Memantine Hcl 10 Mg Tablet) 10 mg PO DAILY [facility] Last Admin: 08/05/21 08:18 Dose: 10 mg Documented by: EVANGELISTA Memantine (Memantine Hcl 10 Mg Tablet) 10 mg PO BID [facility] Last Admin: 08/05/21 20:26 Dose: 10 mg Documented by: NICA Metoprolol Succinate (Metoprolol Succinate Er 50 Mg Tab.Er.24h) 50 mg PO DAILY [facility]; Protocol Last Admin: 08/05/21 08:21 Dose: 50 mg Documented by: EVANGELISTA Morphine Sulfate (Morphine Sulfate 4 Mg/Ml Cartridge) 4 mg IVPUSH Q3H PRN; Protocol PRN Reason: Pain, severe Last Admin: 08/02/21 13:26 Dose: 4 mg Documented by: DEVAN Non-Formulary Medication (Empagliflozin [Jardiance]) 1 tab PO DAILY [facility] Omeprazole (Omeprazole 20 Mg Capsule.) 20 mg PO DAILY [facility] Last Admin: 08/05/21 08:18 Dose: 20 mg Documented by: EVANGELISTA Omeprazole (Omeprazole 20 Mg Capsule.) 20 mg PO DAILY [facility] Ondansetron HCl (Ondansetron Hcl 4 Mg/2 Ml Vial) 4 mg IVPUSH Q8H PRN PRN Reason: Nausea Oxycodone HCl (Oxycodone Hcl Immed Release 5 Mg Tablet) 5 mg PO Q4H PRN PRN Reason: Pain, Moderate (Pain Scale 4-6 Last Admin: 08/06/21 07:29 Dose: 5 mg Documented by: HUSSEIN Pharmacy Consult (Consult Rx Perform Med Rec) 1 each MISCELLANE ONCE PRN PRN Reason: Consult order Vitamin D (Cholecalciferol (Vitamin D3) 25 Mcg Tablet) 25 mcg PO DAILY [facility] Last Admin: 08/05/21 10:34 Dose: 25 mcg Documented by: EVANGELISTA <Shilpa Figueroa PA-C - Last Filed: 08/06/21 08:58> Labs CBC & Chem 7: : 08/05/21 05:13 08/03/21 05:27 <Shilpa Figueroa PA-C - Last Filed: 08/06/21 08:58> Labs: Laboratory Results - last 24 hr 08/05/21 08/05/21 08/05/21 11:20 15:25 20:09 POC Glucose 389 H* 305 H 362 H* 08/06/21 07:22 POC Glucose 279 H <Shilpa Figueroa PA-C - Last Filed: 08/06/21 08:58> Microbiology Microbiology Results: Microbiology 08/02/21 15:10 Gram Stain - Final Abdomen - Abscess Routine Culture - Final Enterococcus faecalis Anaerobic Culture - Preliminary Culture in progress. <Shilpa Figueroa PA-C - Last Filed: 08/06/21 08:58> Procedures Date of Service Date of Service: 08/06/21 <Shilpa Figueroa PA-C - Last Filed: 08/06/21 08:58> Progress Note: A&P Assessment and plan (1) Diabetes: Status: Acute <Shilpa Figueroa PA-C - Last Filed: 08/06/21 08:58> (2) H/O: HTN (hypertension): Status: Acute <ALTAGRACIA Gibson Last Filed: 08/06/21 08:58> (3) Postoperative intra-abdominal abscess: Status: Acute <ALTAGRACIA Gibson Last Filed: 08/06/21 08:58> Assessment and Plan: he feels well and says he is ready to be discharged to Rehab good PO intake no fever abd soft, nontender drain in place - very scanty output ok to transfer to Rehab keep drain in place Augmentin as follow-on abx look comfortable dw daughter Robyn seen and examined multiple timees - agree with GUERA Figueroa <Karel Padilla MD - Last Filed: 08/06/21 13:13> Assessment and Plan: ?71 year old male about 2 weeks s/p lap CCY for gallstones, CBD stone admitted with abscess in gallbladder fossa.? S/p CT guided drainage with drain placement. Abscess cultures grew Enterococcus. WBC normalized. Continue pain control. Plan for d/c to [facility] today with drain in place if bed available. F/u with Dr. Padilla in 1 week. Patient comfortable with plan. Transition to PO Augmentin upon discharge. Hypertension- SBP remains elevated. Losartan and norvasc increased. On metoprolol. Diabetes- POCs have been high 200s-300s. On sliding scale. On glimepiride, novolog, jardiance at home which have been held. Appreciate hospitalist input regarding management.? <Shilpa Figueroa PA-C - Last Filed: 08/06/21 08:58> Fall Risk Details Current Medications: Current Medications Acetaminophen (Acetaminophen 325 Mg Tablet) 650 mg PO Q6H PRN PRN Reason: Fever Last Admin: 08/05/21 20:26 Dose: 650 mg Documented by: Amlodipine Besylate (Amlodipine Besylate 10 Mg Tablet) 10 mg PO DAILY [facility]; Protocol Apixaban (Apixaban 5 Mg Tablet) 5 mg PO BID [facility] Last Admin: 08/05/21 20:26 Dose: 5 mg Documented by: Ascorbic Acid (Ascorbic Acid 250 Mg Tablet) 250 mg PO DAILY [facility] Last Admin: 08/05/21 10:36 Dose: 250 mg Documented by: Atorvastatin Calcium (Atorvastatin Calcium 40 Mg Tablet) 40 mg PO BEDTIME [facility] Last Admin: 08/05/21 20:25 Dose: 40 mg Documented by: Calcium Carbonate (Calcium Carbonate 500 Mg Tablet) 1,000 mg PO BID [facility] Last Admin: 08/05/21 20:26 Dose: 1,000 mg Documented by: Cyanocobalamin (Cyanocobalamin (Vitamin B-12) 1,000 Mcg Tablet) 1,000 mcg PO DAILY [facility] Last Admin: 08/05/21 10:36 Dose: 1,000 mcg Documented by: Dextrose (Dextrose 50 % 25 Gm/50 Ml Vial) 25 gm IVPUSH Q15M PRN; Protocol PRN Reason: per Hypoglycemia Standing Ord. Donepezil HCl (Donepezil Hcl 10 Mg Tablet) 10 mg PO DAILY [facility] Last Admin: 08/05/21 08:22 Dose: 10 mg Documented by: Duloxetine HCl (Duloxetine Hcl 60 Mg Capsule.Dr) 60 mg PO DAILY [facility] Last Admin: 08/05/21 08:18 Dose: 60 mg Documented by: Duloxetine HCl (Duloxetine Hcl 60 Mg Capsule.Dr) 60 mg PO BID [facility] Last Admin: 08/05/21 20:26 Dose: 60 mg Documented by: Ezetimibe (Ezetimibe 10 Mg Tablet) 10 mg PO BEDTIME [facility] Last Admin: 08/05/21 20:26 Dose: 10 mg Documented by: Glipizide (Glipizide 10 Mg Tablet) 10 mg PO DAILY [facility] Glucose (Glucose Gel 15 Gm Gel..Gram.) 15 gm PO Q15M PRN; Protocol PRN Reason: per Hypoglycemia Standing Ord. Piperacillin Sod/Tazobactam (Sod 3.375 gm/ Sodium Chloride) 50 mls @ 100 mls/hr IV Q6H [facility] Last Infusion: 08/06/21 08:13 Dose: Infused Documented by: Insulin Glargine (Insulin Glargine,Hum.Rec.Anlog 100 Unit/Ml 10 Ml Vial) 39 un it SUBCUT DAILY [facility] Insulin Human Lispro (Insulin Lispro 100 Unit/Ml 3 Ml Vial) 0 unit SUBCUT QIDACHS [facility]; Protocol Last Admin: 08/06/21 07:29 Dose: 6 unit Documented by: Insulin Human Lispro (Insulin Lispro 100 Unit/Ml 3 Ml Vial) 5 unit SUBCUT QIDACHS [facility] Last Admin: 08/06/21 07:30 Dose: 5 unit Documented by: Losartan Potassium (Losartan Potassium 50 Mg Tablet) 100 mg PO DAILY [facility]; Protocol Last Admin: 08/05/21 08:28 Dose: 100 mg Documented by: Memantine (Memantine Hcl 10 Mg Tablet) 10 mg PO DAILY [facility] Last Admin: 08/05/21 08:18 Dose: 10 mg Documented by: Memantine (Memantine Hcl 10 Mg Tablet) 10 mg PO BID [facility] Last Admin: 12/16/21 20:26 Dose: 10 mg Documented by: Metoprolol Succinate (Metoprolol Succinate Er 50 Mg Tab.Er.24h) 50 mg PO DAILY [facility]; Protocol Last Admin: 08/05/21 08:21 Dose: 50 mg Documented by: Morphine Sulfate (Morphine Sulfate 4 Mg/Ml Cartridge) 4 mg IVPUSH Q3H PRN; Protocol PRN Reason: Pain, severe Last Admin: 08/02/21 13:26 Dose: 4 mg Documented by: Non-Formulary Medication (Empagliflozin [Jardiance]) 1 tab PO DAILY [facility] Omeprazole (Omeprazole 20 Mg Capsule.Dr) 20 mg PO DAILY [facility] Last Admin: 08/05/21 08:18 Dose: 20 mg Documented by: Omeprazole (Omeprazole 20 Mg Capsule.Dr) 20 mg PO DAILY [facility] Ondansetron HCl (Ondansetron Hcl 4 Mg/2 Ml Vial) 4 mg IVPUSH Q8H PRN PRN Reason: Nausea Oxycodone HCl (Oxycodone Hcl Immed Release 5 Mg Tablet) 5 mg PO Q4H PRN PRN Reason: Pain, Moderate (Pain Scale 4-6 Last Admin: 08/06/21 07:29 Dose: 5 mg Documented by: Pharmacy Consult (Consult Rx Perform Med Rec) 1 each MISCELLANE ONCE PRN PRN Reason: Consult order Vitamin D (Cholecalciferol (Vitamin D3) 25 Mcg Tablet) 25 mcg PO DAILY [facility] Last Admin: 08/05/21 10:34 Dose: 25 mcg Documented by: <Shilpa Figueroa PA-C - Last Filed: 08/06/21 08:58> Time Spent With Patient Time: Total time spent is greater than 50% in coordination of care (as docume nted) at patient's floor/unit and/or counseling patient: <Shilpa Figueroa PA-C - Last Filed: 08/06/21 08:58> Time with patient: 15 - 24 minutes <Shilpa Figueroa PA-C - Last Filed: 08/06/21 08:58> Quality Stroke Does the patient have a stroke diagnosis?: No <ALTAGRACIA Gibson Last Filed: 08/06/21 08:58> VTE Prior VTE?: No <ALTAGRACIA Gibson Last Filed: 08/06/21 08:58> VTE Risk Level:: Surgical - high <Shilpa Figueroa PA-C - Last Filed: 08/06/21 08:58> VTE Device Contraindication: N/A - Device Ordered <Shilpa Figueroa PA-C - Last Filed: 08/06/21 08:58> VTE Drug Contraindication: Treatment Not Indicated ( interventional procedure planned) <Shilpa shultz PA-C - Last Filed: 08/06/21 08:58>
--- NOTE | 2021-08-06 09:19 | P.PNIM_ITS ---
Subjective Subjective Date of Service: 08/06/21 Interval History: f/u on medical consult for management of HTN, Diabetes No new issues Review of Systems no fever no abdominal pain Physical Exam Vital Signs: Vital Signs: Last Vital Signs Temp 97.0 F 08/06/21 07:23 Pulse 74 08/06/21 07:23 Resp 18 08/06/21 07:23 BP 167/93 H 08/06/21 07:23 Pulse Ox 97 08/06/21 07:23 BMI result Body Mass Index 31.6 Const: Other: General: AO X 3, no acute distress Resp: CTA bilateral CVS: S1,S2,RRR GI: +BS, NT, no distention Skin: No rash Neuro: motor grossly intact Psych: appropriate affect Objective Data Active Medications Acetaminophen (Acetaminophen 325 Mg Tablet) 650 mg PO Q6H PRN PRN Reason: Fever Last Admin: 08/05/21 20:26 Dose: 650 mg Documented by: NICA Amlodipine Besylate (Amlodipine Besylate 10 Mg Tablet) 10 mg PO DAILY [facility]; Protocol Apixaban (Apixaban 5 Mg Tablet) 5 mg PO BID [facility] Last Admin: 08/05/21 20:26 Dose: 5 mg Documented by: NICA Ascorbic Acid (Ascorbic Acid 250 Mg Tablet) 250 mg PO DAILY [facility] Last Admin: 08/05/21 10:36 Dose: 250 mg Documented by: EVANGELISTA Atorvastatin Calcium (Atorvastatin Calcium 40 Mg Tablet) 40 mg PO BEDTIME [facility] Last Admin: 08/05/21 20:25 Dose: 40 mg Documented by: NICA Calcium Carbonate (Calcium Carbonate 500 Mg Tablet) 1,000 mg PO BID [facility] Last Admin: 08/05/21 20:26 Dose: 1,000 mg Documented by: NICA Cyanocobalamin (Cyanocobalamin (Vitamin B-12) 1,000 Mcg Tablet) 1,000 mcg PO DAILY [facility] Last Admin: 08/05/21 10:36 Dose: 1,000 mcg Documented by: EVANGELISTA Dextrose (Dextrose 50 % 25 Gm/50 Ml Vial) 25 gm IVPUSH Q15M PRN; Protocol PRN Reason: per Hypoglycemia Standing Ord. Donepezil HCl (Donepezil Hcl 10 Mg Tablet) 10 mg PO DAILY [facility] Last Admin: 08/05/21 08:22 Dose: 10 mg Documented by: EVANGELISTA Duloxetine HCl (Duloxetine Hcl 60 Mg Capsule.) 60 mg PO DAILY [facility] Last Admin: 08/05/21 08:18 Dose: 60 mg Documented by: EVANGELISTA Duloxetine HCl (Duloxetine Hcl 60 Mg Capsule.) 60 mg PO BID [facility] Last Admin: 08/05/21 20:26 Dose: 60 mg Documented by: NICA Ezetimibe (Ezetimibe 10 Mg Tablet) 10 mg PO BEDTIME [facility] Last Admin: 08/05/21 20:26 Dose: 10 mg Documented by: NICA Glipizide (Glipizide 10 Mg Tablet) 10 mg PO DAILY [facility] Glucose (Glucose Gel 15 Gm Gel..Gram.) 15 gm PO Q15M PRN; Protocol PRN Reason: per Hypoglycemia Standing Ord. Piperacillin Sod/Tazobactam (Sod 3.375 gm/ Sodium Chloride) 50 mls @ 100 mls/hr IV Q6H [facility] Last Infusion: 08/06/21 08:13 Dose: 0 mls/hr Documented by: NICA Insulin Glargine (Insulin Glargine,Hum.Rec.Anlog 100 Unit/Ml 10 Ml Vial) 39 unit SUBCUT DAILY [facility] Insulin Human Lispro (Insulin Lispro 100 Unit/Ml 3 Ml Vial) 0 unit SUBCUT QIDACHS [facility]; Protocol Last Admin: 08/06/21 07:29 Dose: 6 unit Documented by: HUSSEIN Insulin Human Lispro (Insulin Lispro 100 Unit/Ml 3 Ml Vial) 5 unit SUBCUT QIDACHS [facility] Last Admin: 08/06/21 07:30 Dose: 5 unit Documented by: HUSSEIN Losartan Potassium (Losartan Potassium 50 Mg Tablet) 100 mg PO DAILY [facility]; Protocol Last Admin: 08/05/21 08:28 Dose: 100 mg Documented by: EVANGELISTA Memantine (Memantine Hcl 10 Mg Tablet) 10 mg PO DAILY [facility] Last Admin: 08/05/21 08:18 Dose: 10 mg Documented by: EVANGELISTA Memantine (Memantine Hcl 10 Mg Tablet) 10 mg PO BID [facility] Last Admin: 08/05/21 20:26 Dose: 10 mg Documented by: NICA Metoprolol Succinate (Metoprolol Succinate Er 50 Mg Tab.Er.24h) 50 mg PO DAILY [facility]; Protocol Last Admin: 08/05/21 08:21 Dose: 50 mg Documented by: EVANGELISTA Morphine Sulfate (Morphine Sulfate 4 Mg/Ml Cartridge) 4 mg IVPUSH Q3H PRN; Protocol PRN Reason: Pain, severe Last Admin: 08/02/21 13:26 Dose: 4 mg Documented by: COTEMA Non-Formulary Medication (Empagliflozin [Jardiance]) 1 tab PO DAILY [facility] Omeprazole (Omeprazole 20 Mg Capsule.) 20 mg PO DAILY [facility] Last Admin: 08/05/21 08:18 Dose: 20 mg Documented by: EVANGELISTA Omeprazole (Omeprazole 20 Mg Capsule.) 20 mg PO DAILY [facility] Ondansetron HCl (Ondansetron Hcl 4 Mg/2 Ml Vial) 4 mg IVPUSH Q8H PRN PRN Reason: Nausea Oxycodone HCl (Oxycodone Hcl Immed Release 5 Mg Tablet) 5 mg PO Q4H PRN PRN Reason: Pain, Moderate (Pain Scale 4-6 Last Admin: 08/06/21 07:29 Dose: 5 mg Documented by: HUSSEIN Pharmacy Consult (Consult Rx Perform Med Rec) 1 each MISCELLANE ONCE PRN PRN Reason: Consult order Vitamin D (Cholecalciferol (Vitamin D3) 25 Mcg Tablet) 25 mcg PO DAILY [facility] Last Admin: 08/05/21 10:34 Dose: 25 mcg Documented by: EVANGELISTA Labs CBC & Chem 7: 08/05/21 05:13 08/03/21 05:27 Labs: Laboratory Results - last 24 hr 08/05/21 08/05/21 08/05/21 11:20 15:25 20:09 POC Glucose 389 H* 305 H 362 H* 08/06/21 07:22 POC Glucose 279 H Microbiology Microbiology Results: Microbiology 08/02/21 15:10 Gram Stain - Final Abdomen - Abscess Routine Culture - Final Enterococcus faecalis Anaerobic Culture - Preliminary Culture in progress. Assessment and Plan (1) H/O: HTN (hypertension): Status: Acute (2) Postoperative intra-abdominal abscess: Status: Acute Assessment and Plan: 71-year-old man admitted by General surgery.? He is 9 days status post lap choly presenting with increased right upper quadrant pain, imaging is consistent with postoperative abscess in the gallbladder fossa. Following for medical management 1.Hypertension--uncontrolled -Losartan incrased to `100 08/04 -continue Toprolol at 50 -Incrase Norvasc to 10 and if remains high, add hydralazine 2.Gallbladder fossa abscess Continue Zosyn as ordered, PO Augmentin at discharge 3.Diabetes mellitus--uncontrolled. He is on Glimerperide, Toujeo at home not on formulary, add pre meal insulin--Upon discharge can resume prior meds 4.Paroxysmal atrial fibrillation--Toprolol for rate control, Eliquis for anticoagulation DVT prophylaxis Eliquis Quality Stroke Does the patient have a stroke diagnosis?: No VTE Prior VTE?: No VTE Risk Level:: Surgical - high VTE Device Contraindication: N/A - Device Ordered VTE Drug Contraindication: Treatment Not Indicated ( interventional procedure planned)
[2021-08-06] MEDS: Memantine HCl 10 MG TABLET PO (11:05)
[2021-08-06] MEDS: Losartan Potassium 50 MG TABLET 100 MG PO (11:05)
[2021-08-06] MEDS: DULoxetine HCl 60 MG CAPSULE.DR PO (11:05)
[2021-08-06] MEDS: Donepezil HCl 10 MG TABLET PO (11:06)
[2021-08-06] MEDS: Ascorbic Acid 250 MG TABLET PO (11:06)
[2021-08-06] MEDS: Metoprolol Succinate ER 50 MG TAB.ER.24H PO (11:06)
[2021-08-06] MEDS: Apixaban 5 MG TABLET PO (11:06)
[2021-08-06] MEDS: amLODIPine Besylate 10 MG TABLET PO (11:06)
[2021-08-06] MEDS: glipiZIDE 10 MG TABLET PO (11:07)
[2021-08-06] MEDS: Cyanocobalamin (Vitamin B-12) 1,000 MCG TABLET 1000 MCG PO (11:07)
[2021-08-06] MEDS: Insulin Glargine,Hum.rec.anlog 100 UNIT/ML 10 ML VIAL 39 UNIT SUBCUT (11:07)
[2021-08-06] MEDS: Cholecalciferol (Vitamin D3) 25 MCG TABLET PO (11:07)
[2021-08-06] MEDS: Omeprazole 20 MG CAPSULE.DR PO (11:07)
[2021-08-06 11:35] VITALS: BP 152/71; PULSE 58; RESP 18; TEMP 36.3; O2SAT 92
[2021-08-06 11:55] LABS: COVID-19 Test Negative (Negative); IDNOW Serial# 9DD0AD1C
[2021-08-06 12:04] LABS: Glucose, Whole Blood 355 mg/dL (60-115)
--- NOTE | 2021-08-06 12:55 | MHC.CM.PN ---
nurse case specialist note ELECTONIC MEDICAL RECORD REVIEWED ALONG WITH CASE DISCUSSED WITH STAFF NURSE. PATIENT TO BE DISCHARGED TO THE [facility] TODAY [id number] ACCEPTED BY THE FACILITY LIASON PATIENT AWARE AND ACCEPTING OF THE DISCHARGE AND WLL BE TRANSPORTED VIA [facility] AT 2PM MEDICARE IMMM UPDATED AND SENT HCP/MOLST/COVID TEST TO FACILITY PATIENT TO BRING HIS OWN CPAP DISCHARGE [facility] STR TRANSPORTATION [facility] 2PM MEDICARE IMMM UPDATED AND PHONE DAUGHTER AND SHE IS PRESENT I N PATIENT ROOM PRESENTLY FOR TRANSFER EMOTIONAL DUPPORT-
== END 2021-08-06 14:16 | disposition skilled nursing facility (03) | DRG 863 ==
LOC: HO.ED 21:54 → HO.EDOVER 22:38 → HO.S3 07-31 01:21
PROVIDERS: Nurse Practitioner Acute Care; Physician Assistant; Physician Assistant Surgical; Radiology Diagnostic Radiology; Admitting Provider Surgery; Emergency Provider Emergency Medicine; Visit Provider Surgery
PROC: 0W9G30Z Drainage of Peritoneal Cavity with Drainage Device, Percutaneous Approach (ICD-10-PCS; principal; 2021-08-02 11:00)
DX: K68.11 Postprocedural retroperitoneal abscess (principal); Z20.822 Contact with and (suspected) exposure to COVID-19; I10 Essential (primary) hypertension; I48.0 Paroxysmal atrial fibrillation; E11.9 Type 2 diabetes mellitus without complications; Z87.891 Personal history of nicotine dependence; Z98.84 Bariatric surgery status; Z79.4 Long term (current) use of insulin; Z79.01 Long term (current) use of anticoagulants; Z79.899 Other long term (current) drug therapy
CPT/HCPCS: 36415; 49406; 74177; 80048; 80053; 82947; 83605; 83690; 83735; 85025; 85027; 85610; 87040; 87071; 87073; 87077; 87186; 87205; 87635; 96361; 96365; 99024; 99152; 99153; 99285; 99291; C1729; J1650; J2270; J2543; Q9967

== ENCOUNTER → 2021-08-16 12:50 | Outpatient (BNVA) | payer MEDICARE, BC, SELFPAY | PROVIDERS: Visit Provider Surgery | DX: T81.43XD Infection following a procedure, organ and space surgical site, subsequent encounter (principal); Z90.49 Acquired absence of other specified parts of digestive tract | CPT/HCPCS: 99212 ==

== ENCOUNTER → 2021-08-25 13:13 | Outpatient (BNVA) | payer MEDICARE, BC, SELFPAY | PROVIDERS: Visit Provider Surgery | DX: Z48.815 Encounter for surgical aftercare following surgery on the digestive system (principal); T81.43XD Infection following a procedure, organ and space surgical site, subsequent encounter; Z90.49 Acquired absence of other specified parts of digestive tract | CPT/HCPCS: 99212 ==

== ENCOUNTER 2021-11-08 03:26 | Observation (INO) | payer MEDICARE, BC, SELFPAY ==
--- NOTE | ~2021-11-08 | XR_ITS ---
EXAMINATION: XR CHEST CLINICAL INFORMATION: Chest pain COMPARISON: 07/13/2021 TECHNIQUE: Frontal view of the chest was obtained. FINDINGS: Median sternotomy wires appear intact. The lungs are well expanded. There is no focal consolidation, edema, or effusion. No pneumothorax. The cardiomediastinal silhouette is within normal limits. No acute osseous abnormality. XR/XR chest 1V IMPRESSION: Clear lungs.
--- NOTE | 2021-11-08 03:29 | ECG_ITS ---
Test Reason : CHEST PAIN Blood Pressure : / mmHG Vent. Rate : 074 BPM Atrial Rate : 074 BPM P-R Int : 244 ms QRS Dur : 096 ms QT Int : 466 ms P-R-T Axes : 052 -23 112 degrees QTc Int : 517 ms Sinus rhythm with 1st degree A-V block Inferior infarct (cited on or before 19-JUL-2021) Possible Anterior infarct , age undetermined T wave abnormality, consider lateral ischemia Abnormal ECG When compared with ECG of 19-JUL-2021 13:42, Sinus rhythm has replaced Atrial flutter T wave inversion no longer evident in Inferior leads QT has lengthened Referred By: Bridgette Kern Electronically Signed By:Jonas Joyner
[2021-11-08 03:37] VITALS: BP 100/60; BP 101/54; PULSE 74; PULSE 80; RESP 13; TEMP 37.1; O2SAT 92; O2SAT 95; BMI 30.8
--- NOTE | 2021-11-08 03:59 | ED_ITS ---
HPI - Chest Pain General Chief Complaint: Chest Pain Stated Complaint: cp Time Seen by Provider: 11/08/21 03:29 Source: patient Mode of arrival: EMS History of Present Illness HPI narrative: 71-year-old male with history of CAD (CABG x4), diabetes who presents via EMS for getting up in the middle the night and noting that his legs felt a little weak and so he checked her sugar and noted that it was 60 and began eating some chocolate and cookies and then developed squeezing chest pain that was radiating into the right arm (patient states that this happened the last time that he had a heart blockage) and that this was associated with diaphoresis, dizziness, nausea but denies shortness of breath. Patient states that he overall felt weak and took 3 nitro, called his daughter and called EMS. EN route EMS administered 324 mg of aspirin and patient had resolution of the chest pain just prior to EMS arrival. He remains asymptomatic at present. Related Data Home Medications Medication Instructions Recorded Confirmed donepezil 10 mg tablet 1 tab PO DAILY 07/12/21 07/30/21 empagliflozin 25 mg tablet 1 tab PO DAILY 07/12/21 07/30/21 (Jardiance) ezetimibe 10 mg-simvastatin 80 mg 1 tab PO BEDTIME 07/12/21 07/30/21 tablet glimepiride 4 mg tablet 1 tab PO DAILY 07/12/21 07/30/21 insulin aspart U-100 100 unit/mL See Protocol SUBCUT QIDACHS PRN 07/12/21 07/30/21 (3 mL) subcutaneous pen (Novolog Flexpen U-100 Insulin aspart) insulin glargine U-300 conc 300 49 unit SUBCUT DAILY 07/12/21 07/30/21 unit/mL (1.5 mL) subcutaneous pen (Toujeo SoloStar U-300 Insulin) pantoprazole 40 mg tablet,delayed 1 tab PO DAILY 07/12/21 07/30/21 release ascorbic acid (vitamin C) 500 mg 250 mg PO DAILY 07/13/21 07/30/21 tablet (Vitamin C) calcium carbonate 500 mg calcium 1,000 mg PO BID 07/13/21 07/30/21 (1,250 mg) tablet (Calcium 500) cholecalciferol (vitamin D3) 25 25 mcg PO DAILY 07/13/21 07/30/21 mcg (1,000 unit) tablet (Vitamin D3) cyanocobalamin (vitamin B-12) 1,000 mcg PO DAILY 07/13/21 07/30/21 1,000 mcg tablet duloxetine 60 mg capsule,delayed 60 mg PO BID 07/13/21 07/30/21 release memantine 10 mg tablet 10 mg PO BID 07/13/21 07/30/21 metoprolol succinate 50 mg 1 tab PO DAILY 07/13/21 07/30/21 tablet,extended release 24 hr Previous Rx's Medication Instructions Recorded apixaban 5 mg tablet (Eliquis) 5 mg PO BID #60 tab 07/26/21 oxycodone 5 mg tablet 5 mg PO Q8H PRN #9 tab 07/26/21 losartan 100 mg tablet 100 mg PO DAILY #60 tab 08/04/21 amoxicillin 875 mg-potassium 1 tab PO BID #14 tab 08/05/21 clavulanate 125 mg tablet (Augmentin) amlodipine 10 mg tablet (Norvasc) 10 mg PO DAILY #60 tab 08/06/21 Allergies Allergy/AdvReac Type Severity Reaction Status Date / Time No Known Allergies Allergy Verified 08/25/21 13:26 Review of Systems Review of Systems: Pertinent positives and negatives as stated in HPI 10 point review of systems is otherwise negative. [facility] Past Medical History Source: nursing notes reviewed Medical History Atherosclerotic cardiovascular disease Diabetes Diabetes Elevated liver enzymes H/O: HTN (hypertension) Paroxysmal atrial fibrillation Paroxysmal atrial flutter Sleep apnea Surgical History History of quadruple bypass History of [place]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 S/P laparoscopic cholecystectomy Family History Family History Father CAD (coronary artery disease) Sister CAD (coronary artery disease) Social History Social History Household Members: None Housing: Apartment Do you presently have visiting nurse or other home services: No Alcohol intake: former Patient Tobacco Use Status: Former Tobacco user Tobacco use type: Smokeless Tobacco Substance Use Type: Other Advance Directives: No service: No Current occupational status: retired Physical Exam Vital Signs: Vital Signs: Last Vital Signs Temp 98.7 F 11/08/21 03:37 Pulse 66 11/08/21 06:00 Resp 15 11/08/21 06:00 BP 120/58 L 11/08/21 06:00 Pulse Ox 96 11/08/21 06:00 BMI result Body Mass Index 30.8 VITAL SIGNS: Reviewed. GENERAL: Well developed, well nourished, in no acute distress. HEAD: Normocephalic/atraumatic EYES: PERRLA, EOMI OROPHARYNX: no oral lesions noted, posterior pharynx clear LUNGS: Normal breath sounds. No adventitious sounds or accessory muscle use. SpO2<92> CARDIOVASCULAR: Regular rate and rhythm without noted murmurs, no JVD or lower extremity edema. ABDOMEN: Soft, non-tender, non-distended with bowel sounds. MUSCULOSKELETAL: No tenderness, deformities, or effusions noted on gross inspection. EXTREMITIES: No cyanosis, clubbing or edema. SKIN: Inspection of the skin reveals no rashes NEUROLOGIC: Alert and oriented x 4. Strength and sensation to light touch were grossly intact x 4. Course Course Course Narrative: 71-year-old male with history and clinical presentation concerning for possible angina. On review of EKG no evidence of STEMI and patient is otherwise asymptomatic for chest pain at this time. On review of all investigations troponins are detectable and serial troponins x2 are not significantly different and after having discussed the case with Cardiology will admit for ACS and hold off on heparin at this time. Patient informed of all results and plans and discuss the case with inpatient hospitalist who accepts admission. MDM - Chest Pain Lab Data Result diagrams: 11/08/21 04:56 11/08/21 04:40 Labs: Lab Results 11/08/21 11/08/21 11/08/21 Range/Units 04:40 04:40 04:40 WBC (4.8-10.8) X10*3/uL RBC (4.60-5.80) X10*6/uL Hgb (14.0-18.0) g/dl Hct (42.0-52.0) % MCV (80.0-98.0) fL MCH (27.0-33.0) pg MCHC (31.0-36.0) g/dl RDW (11.0-16.0) % Plt Count (160-400) X10*3/uL MPV (9.4-12.4) fL Immature Gran % (Auto) (0.0-0.4) % Neut % (Auto) (45-73) % Lymph % (Auto) (20-40) % [place] % (Auto) (2-11) % Eos % (Auto) (0-4) % Baso % (Auto) (0-2) % Lymph # (Auto) (1.2-4.9) X10*3/uL [place] # (Auto) (0.1-1.2) X10*3/uL Eos # (Auto) (0.0-0.4) X10*3/uL Baso # (Auto) (0.0-0.2) X10*3/uL Abs Immat Gran (auto) (0.00-0.03) X10*3/uL Absolute Neuts (auto) (2.0-8.3) x10*3/uL Absolute Nucleated RBC (0.0-0.012) X10*3/uL Nucleated RBC % (auto) (0.0-0.2) /100WBC PT 11.3 (9.9-13.0) SEC INR 1.0 (0.9-1.1) Sodium 137 (135-145) mmol/L Potassium 4.6 (3.3-5.1) mmol/L Chloride 100 (96-108) mmol/L Carbon Dioxide 20 L (22-29) mmol/L Anion Gap 22 H (12-20) BUN 15 (9-16) mg/dL Creatinine 1.29 (0.5-1.4) mg/dL Estim Creat Clear Calc 60.6 Estimated GFR 55 Random Glucose 347 H D (60-115) mg/dL Calcium 9.5 D (8.4-10.2) mg/dL Total Bilirubin 0.6 (0.0-1.0) mg/dL AST 44 H D (5-37) U/L ALT 60 H (0-40) U/L Alkaline Phosphatase 120 H D (39-117) U/L Troponin I High Sens 14.6 (<3.5-35.0) ng/L Total Protein 7.2 (6.5-8.0) g/dL Albumin 4.3 D (3.5-5.0) g/dL Lipase 38 (8-78) U/L 11/08/21 11/08/21 Range/Units 04:56 05:45 WBC 11.4 H (4.8-10.8) X10*3/uL RBC 5.44 (4.60-5.80) X10*6/uL Hgb 15.8 (14.0-18.0) g/dl Hct 47.4 (42.0-52.0) % MCV 87.1 (80.0-98.0) fL MCH 29.0 (27.0-33.0) pg MCHC 33.3 (31.0-36.0) g/dl RDW 14.8 (11.0-16.0) % Plt Count 177 D (160-400) X10*3/uL MPV 10.3 (9.4-12.4) fL Immature Gran % (Auto) 0.4 (0.0-0.4) % Neut % (Auto) 69.8 (45-73) % Lymph % (Auto) 17.8 L (20-40) % [place] % (Auto) 9.2 (2-11) % Eos % (Auto) 2.1 (0-4) % Baso % (Auto) 0.7 (0-2) % Lymph # (Auto) 2.0 (1.2-4.9) X10*3/uL [place] # (Auto) 1.1 (0.1-1.2) X10*3/uL Eos # (Auto) 0.2 (0.0-0.4) X10*3/uL Baso # (Auto) 0.1 (0.0-0.2) X10*3/uL Abs Immat Gran (auto) 0.05 H (0.00-0.03) X10*3/uL Absolute Neuts (auto) 8.0 (2.0-8.3) x10*3/uL Absolute Nucleated RBC 0.000 (0.0-0.012) X10*3/uL Nucleated RBC % (auto) 0.0 (0.0-0.2) /100WBC PT (9.9-13.0) SEC INR (0.9-1.1) Sodium (135-145) mmol/L Potassium (3.3-5.1) mmol/L Chloride (96-108) mmol/L Carbon Dioxide (22-29) mmol/L Anion Gap (12-20) BUN (9-16) mg/dL Creatinine (0.5-1.4) mg/dL Estim Creat Clear Calc Estimated GFR Random Glucose (60-115) mg/dL Calcium (8.4-10.2) mg/dL Total Bilirubin (0.0-1.0) mg/dL AST (5-37) U/L ALT (0-40) U/L Alkaline Phosphatase (39-117) U/L Troponin I High Sens 27.6 D (<3.5-35.0) ng/L Total Protein (6.5-8.0) g/dL Albumin (3.5-5.0) g/dL Lipase (8-78) U/L ECG Data ECG #1: Attestation: I personally reviewed and interpreted this ECG as follows: Prior ECG tracings: available for review (Comparison EKG from 07/19/2021 showed atrial flutter at that time.) Interpretation: Sinus rhythm with first-degree AV block, HR-74, no STEMI, QRS within normal limits Discharge Plan Discharge Clinical Impression: ACS (acute coronary syndrome), Diabetes Patient Disposition: Admitted As Inpatient
[2021-11-08 04:35] VITALS: BP 100/79; PULSE 76; RESP 14; O2SAT 93
--- NOTE | 2021-11-08 04:37 | PC.NURSE ---
Pt remains chest pain free
[2021-11-08 04:50] LABS: Prothrombin Time 11.3 SEC (9.9-13.0)
[2021-11-08 05:00] LABS: Basophils Absolute Auto 0.1 X10*3/uL (0.0-0.2); Basophils Percent Auto 0.7 % (0-2); Eosinophils Absolute Auto 0.2 X10*3/uL (0.0-0.4); Eosinophils Percent Auto 2.1 % (0-4); Hematocrit 47.4 % (42.0-52.0); Hemoglobin 15.8 g/dl (14.0-18.0); Imm Gran Abs Auto 0.05 X10*3/uL (0.00-0.03); Imm Gran Pct Auto 0.4 % (0.0-0.4); Lymphocytes Percent Auto 17.8 % (20-40); Mean Corpuscular HGB Conc 33.3 g/dl (31.0-36.0); Mean Corpuscular Volume 87.1 fL (80.0-98.0); Mean Platelet Volume 10.3 fL (9.4-12.4); Monocytes Absolute Auto 1.1 X10*3/uL (0.1-1.2); Monocytes Percent Auto 9.2 % (2-11); Neutrophils Percent Auto 69.8 % (45-73); Platelet Count 177 X10*3/uL (160-400); Red Blood Count 5.44 X10*6/uL (4.60-5.80); Red Cell Distribution Width 14.8 % (11.0-16.0); White Blood Count 11.4 X10*3/uL (4.8-10.8)
[2021-11-08 05:03] LABS: Alanine Aminotransferase 60 U/L (0-40); Albumin Level 4.3 g/dL (3.5-5.0); Alkaline Phosphatase 120 U/L (39-117); Anion Gap 22 (12-20); Aspartate Amino Transferase 44 U/L (5-37); Bilirubin Total 0.6 mg/dL (0.0-1.0); Blood Urea Nitrogen 15 mg/dL (9-16); Calcium 9.5 mg/dL (8.4-10.2); Carbon Dioxide 20 mmol/L (22-29); Chloride 100 mmol/L (96-108); Creatinine Clr Calc Pharmacy 60.6; Estimated Glomerular Filt Rate 55; Glucose Random 347 mg/dL (60-115); Lipase 38 U/L (8-78); Potassium 4.6 mmol/L (3.3-5.1); Sodium 137 mmol/L (135-145); Total Protein 7.2 g/dL (6.5-8.0)
[2021-11-08 05:05] LABS: Troponin-I High Sensitivity 14.6 ng/L (<3.5-35.0)
[2021-11-08 05:08] LABS: MANUAL DIFF FLAG NO
[2021-11-08 06:00] VITALS: BP 120/58; PULSE 66; RESP 15; O2SAT 96
[2021-11-08 06:26] LABS: Troponin-I High Sensitivity 27.6 ng/L (<3.5-35.0)
--- NOTE | 2021-11-08 07:45 | PC.NURSE ---
sb on monitor, nad, skin wpd, watching tv, no complaints
--- NOTE | 2021-11-08 09:00 | PHA.MEDREC ---
Pharmacy Consult ? Medication Reconciliation Pharmacy has completed the medication reconciliation.
[2021-11-08 09:32] VITALS: BP 124/64; PULSE 92; RESP 18; TEMP 36.5; O2SAT 92
--- NOTE | 2021-11-08 09:43 | P.HPHOSP_ITS ---
History of Present Illness Date of Service: 11/08/21 Chief Complaint: chest pain This is a 71 yo M with a PMH of HTN, HLD, DM, CAD s/p CABG, obesity, KATINA On CPAP, Alzheimer's dementia who presents to the hospital with complaints of substernal chest pain radiating to the RUE which began the night prior to arrival. The patient reports that he awoke in the middle of the night and was feeling weak. He decided to check his sugar which was low in the 60s and so he ate some sweets. Shortly, thereafter, he began having squeezing substernal chest pain, severe in intensity, radaiting to his L arm. He took 3 tabs of nitro and called his daughter and EMS was called. He was given asa 324mg en route to the hospital. By the time he arrived to the ED -- his pain has subsided. His high sensitivity troponin increased from 14 to 28. The ED provider discussed with the on-call site acquisition specialist and he will now be admitted under observation. Review of Systems Review of Systems: negative except HPI [facility] Medical History Abdominal pain Alzheimer's dementia Atherosclerotic cardiovascular disease Bacteremia Diabetes Diabetes Elevated liver enzymes H/O: HTN (hypertension) H/O: HTN (hypertension) Paroxysmal atrial fibrillation Paroxysmal atrial flutter Post-op pain Postoperative intra-abdominal abscess Sleep apnea Family History Father CAD (coronary artery disease) Sister CAD (coronary artery disease) Surgical History History of quadruple bypass History of [place]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 S/P laparoscopic cholecystectomy Social History Household Members: None Housing: Apartment Do you presently have visiting nurse or other home services: No Alcohol intake: former Patient Tobacco Use Status: Former Tobacco user Tobacco use type: Smokeless Tobacco Substance Use Type: Other Advance Directives: No service: No Current occupational status: retired Meds Allergies Allergy/AdvReac Type Severity Reaction Status Date / Time No Known Allergies Allergy Verified 08/25/21 13:26 Active Medications: Current Medications Acetaminophen (Acetaminophen 325 Mg Tablet) 650 mg PO Q6H PRN PRN Reason: Pain, Mild (Pain Scale 1-3) Ondansetron HCl (Ondansetron Hcl 4 Mg/2 Ml Vial) 4 mg IVPUSH Q8H PRN PRN Reason: Nausea and Vomiting Pharmacy Consult (Consult Rx Perform Med Rec) 1 each MISCELLANE ONCE PRN PRN Reason: Consult order Home Medications Medication Instructions Recorded Confirmed Last Taken Type donepezil 10 mg tablet 1 tab PO DAILY 07/12/21 11/08/21 11/07/21 History empagliflozin 25 mg tablet 1 tab PO DAILY 07/12/21 11/08/21 11/07/21 History (Jardiance) ezetimibe 10 mg-simvastatin 80 mg 1 tab PO BEDTIME 07/12/21 11/08/21 11/07/21 History tablet glimepiride 4 mg tablet 1 tab PO BID 07/12/21 11/08/21 11/07/21 History insulin aspart U-100 100 unit/mL See Protocol SUBCUT QIDACHS PRN 07/12/21 11/08/21 11/07/21 History (3 mL) subcutaneous pen (Novolog Flexpen U-100 Insulin aspart) pantoprazole 40 mg tablet,delayed 1 tab PO DAILY 07/12/21 11/08/21 11/07/21 History release ascorbic acid (vitamin C) 500 mg 250 mg PO DAILY 07/13/21 11/08/21 11/07/21 History tablet (Vitamin C) calcium carbonate 500 mg calcium 1,000 mg PO BID 07/13/21 11/08/21 11/07/21 History (1,250 mg) tablet (Calcium 500) cholecalciferol (vitamin D3) 25 25 mcg PO DAILY 07/13/21 11/08/21 11/07/21 His tory mcg (1,000 unit) tablet (Vitamin D3) cyanocobalamin (vitamin B-12) 1,000 mcg PO DAILY 07/13/21 11/08/21 11/07/21 History 1,000 mcg tablet duloxetine 60 mg capsule,delayed 60 mg PO DAILY 07/13/21 11/08/21 11/07/21 History release memantine 10 mg tablet 10 mg PO BID 07/13/21 11/08/21 11/07/21 History metoprolol succinate 50 mg 1 tab PO DAILY 07/13/21 11/08/21 11/07/21 History tablet,extended release 24 hr aspirin 81 mg tablet,delayed 81 mg PO DAILY 11/08/21 11/08/21 11/07/21 History release insulin glargine U-300 conc 300 48 unit SUBCUT DAILY 11/08/21 11/08/21 11/07/21 History unit/mL (1.5 mL) subcutaneous pen (Toujeo SoloStar U-300 Insulin) losartan 50 mg tablet 1 tab PO DAILY 11/08/21 11/08/21 11/07/21 History Physical Exam Vital Signs and Narrative: Vital Signs: Last Vital Signs Temp 97.7 F 11/08/21 09:32 Pulse 92 11/08/21 09:32 Resp 18 11/08/21 09:32 BP 124/64 11/08/21 09:32 Pulse Ox 92 11/08/21 09:32 BMI result Body Mass Index 30.8 Const: Other: Constitutional - Awake and Alert, No apparent distress Eyes - PERRLA, EOMI Cardiovascular - S1S2, RRR, No edema Respiratory - Normal lung expansion, Normal respiratory effort, No respiratory distress, CTA bilaterally Gastrointestinal - NT / ND; +BS; No rebound or guarding - No CVA tenderness Extremities - no calf tenderness bilaterally, no swelling Musculoskeletal - Normal inspection, normal ROM Skin - Warm/Dry Neurological - non-focal exam Psychological - Appropriate affect Results Labs CBC and Chem 7: 11/08/21 04:56 11/08/21 04:40 Labs: Laboratory Results - last 24 hr 11/08/21 11/08/21 11/08/21 04:40 04:40 04:56 MCV 87.1 MCH 29.0 MCHC 33.3 RDW 14.8 Plt Count 177 D MPV 10.3 Immature Gran % (Auto) 0.4 Neut % (Auto) 69.8 Lymph % (Auto) 17.8 L [place] % (Auto) 9.2 Eos % (Auto) 2.1 Baso % (Auto) 0.7 Lymph # (Auto) 2.0 [place] # (Auto) 1.1 Eos # (Auto) 0.2 Baso # (Auto) 0.1 Abs Immat Gran (auto) 0.05 H Absolute Neuts (auto) 8.0 Absolute Nucleated RBC 0.000 Nucleated RBC % (auto) 0.0 PT 11.3 INR 1.0 Anion Gap 22 H Estim Creat Clear Calc 60.6 Estimated GFR 55 Random Glucose 347 H D Calcium 9.5 D Total Bilirubin 0.6 AST 44 H D ALT 60 H Alkaline Phosphatase 120 H D Total Protein 7.2 Albumin 4.3 D Lipase 38 Imaging Radiologist's Impressions: Impressions Chest X-Ray 11/08/21 05:00 IMPRESSION: Clear lungs. Assessment and Plan (1) Chest pain: Status: Acute Plan This is a 71 yo M with a PMH of HTN, HLD, DM, CAD s/p CABG, obesity, KATINA On CPAP, Alzheimer's dementia who presents to the hospital with complaints of substernal chest pain radiating to the RUE which began the night prior to arrival. 1. Chest pain to rule out ACS now resolved has multiple risk factors including prior CAD, DM, HTN HS trop-I delta >50% Will check a 3rd trop now Consult cardiology Hold off on heparin gtt at this time already received asa by the paramedics 2. CAD continue basleine meds 3. DM hold oral meds basal + bolus 4. HTN stable, continue home meds 5. Alzheimer's dementia continue donepezil + memantine 6. PAF continue bb not on OAC -- d/w the daughter --> he has not been on OAC since last hospitalization; will d/w cardiology Full Code DVT pptx -- Eliquis Quality Stroke Does the patient have a stroke diagnosis?: No VTE Prior VTE?: No VTE Risk Level:: Medical - low VTE Device Contraindication: Treatment Not Indicated VTE Drug Contraindication: Treatment Not Indicated
[2021-11-08] MEDS: Metoprolol Succinate ER 50 MG TAB.ER.24H PO (09:55)
[2021-11-08 10:00] LABS: Appearance Urine CLEAR; Color Urine YELLOW; Glucose Urine UA >=1000 MG/DL (NEG); Leukocyte Esterase Urine NEG (NEG); Nitrite Urine NEG (NEG); Specific Gravity - Urine 1.015 (1.005-1.025); UACC Culture Trigger NO; Urine Blood NEG (NEG); Urine Ketones NEG (NEG); Urine Protein 1+ MG/DL (NEG-TRACE)
[2021-11-08 10:19] LABS: Bacteria Urine TRACE /LPF; RBC Urine 0 /HPF (0); Squamous Epithelial Cell Urine TRACE /LPF
[2021-11-08 10:20] LABS: Troponin-I High Sensitivity 42.5 ng/L (<3.5-35.0)
[2021-11-08 10:22] LABS: COVID-19 Test Negative (Negative); IDNOW Serial# 16C4AD1C
[2021-11-08] MEDS: Insulin Glargine,Hum.rec.anlog 100 UNIT/ML 10 ML VIAL 38 UNIT SUBCUT (10:42)
--- NOTE | 2021-11-08 10:58 | PC.NURSE ---
nad, no complaints, eating sandwich, pt reports cardiology gave the ok to eat and that he will be transferred to [facility]
--- NOTE | 2021-11-08 11:49 | P.CONCA_ITS ---
History of Present Illness History of Present Illness Date of Service: 11/08/21 Requesting physician: Jan Up Chief complaint: Chest pain, unstable angina Narrative: Pleasant 71-year-old gentleman who is presenting for chest pain. He has background history of coronary artery disease underwent bypass surgery reportedly 15 years ago at [facility]. He said he woke up with feeling shaky and checked his sugar. His blood sugar was 60. He said when his sugar level is close to 60s he gets shaky. he had couple of cookies and chocolates and then started having severe chest pain. This reminded him of his anginal pain. He took 2 nitroglycerin tablets at 1 time followed by another 1. The pain did not subside and he called EMS. By the time EMS came his pain was getting better and then went away. Since then he has not had any further chest pains. He is saying he has not had any chest pain for long time. [facility] Past Medical History Medical History Abdominal pain Alzheimer's dementia Atherosclerotic cardiovascular disease Bacteremia Diabetes Diabetes Elevated liver enzymes H/O: HTN (hypertension) H/O: HTN (hypertension) Paroxysmal atrial fibrillation Paroxysmal atrial flutter Post-op pain Postoperative intra-abdominal abscess Sleep apnea Family History Family History Father CAD (coronary artery disease) Sister CAD (coronary artery disease) Surgical History Surgical History History of quadruple bypass History of Shaw[place]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 S/P laparoscopic cholecystectomy Social History Social History Household Members: None Housing: Apartment Do you presently have visiting nurse or other home services: No Alcohol intake: former Patient Tobacco Use Status: Former Tobacco user Tobacco use type: Smokeless Tobacco Substance Use Type: Other Advance Directives: No service: No Current occupational status: retired Meds Allergies Allergy/AdvReac Type Severity Reaction Status Date / Time No Known Allergies Allergy Verified 08/25/21 13:26 Active Medications: Current Medications Acetaminophen (Acetaminophen 325 Mg Tablet) 650 mg PO Q6H PRN PRN Reason: Pain, Mild (Pain Scale 1-3) Ascorbic Acid (Ascorbic Acid 250 Mg Tablet) 250 mg PO DAILY [facility] Aspirin (Aspirin Enteric Coated 81 Mg Tablet.) 81 mg PO DAILY [facility] Atorvastatin Calcium (Atorvastatin Calcium 40 Mg Tablet) 40 mg PO BEDTIME [facility] Calcium Carbonate (Calcium Carbonate 500 Mg Tablet) 1,000 mg PO BID [facility] Cyanocobalamin (Cyanocobalamin (Vitamin B-12) 1,000 Mcg Tablet) 1,000 mcg PO DAILY [facility] Donepezil HCl (Donepezil Hcl 10 Mg Tablet) 10 mg PO DAILY [facility] Duloxetine HCl (Duloxetine Hcl 60 Mg Capsule.) 60 mg PO DAILY [facility] Ezetimibe (Ezetimibe 10 Mg Tablet) 10 mg PO BEDTIME [facility] Insulin Glargine (Insulin Glargine,Hum.Rec.Anlog 100 Unit/Ml 10 Ml Vial) 38 unit SUBCUT DAILY [facility] Last Admin: 11/08/21 10:42 Dose: 38 unit Documented by: Insulin Human Lispro (Insulin Lispro 100 Unit/Ml 3 Ml Vial) 0 unit SUBCUT QIDACHS [facility]; Protocol Losartan Potassium (Losartan Potassium 50 Mg Tablet) 50 mg PO DAILY [facility]; Rm col Memantine (Memantine Hcl 10 Mg Tablet) 10 mg PO BID [facility] Metoprolol Succinate (Metoprolol Succinate Er 50 Mg Tab.Er.24h) 50 mg PO DAILY [facility]; Protocol Last Admin: 11/08/21 09:55 Dose: 50 mg Documented by: Omeprazole (Omeprazole 20 Mg Capsule.) 20 mg PO DAILY@0630 [facility] Ondansetron HCl (Ondansetron Hcl 4 Mg/2 Ml Vial) 4 mg IVPUSH Q8H PRN PRN Reason: Nausea and Vomiting Pharmacy Consult (Consult Rx Perform Med Rec) 1 each MISCELLANE ONCE PRN PRN Reason: Consult order Vitamin D (Cholecalciferol (Vitamin D3) 25 Mcg Tablet) 25 mcg PO DAILY [facility] Home Medications Medication Instructions Recorded Confirmed Last Taken Type donepezil 10 mg tablet 1 tab PO DAILY 07/12/21 11/08/21 11/07/21 History empagliflozin 25 mg tablet 1 tab PO DAILY 07/12/21 11/08/21 11/07/21 History (Jardiance) ezetimibe 10 mg-simvastatin 80 mg 1 tab PO BEDTIME 07/12/21 11/08/21 11/07/21 History tablet glimepiride 4 mg tablet 1 tab PO BID 07/12/21 11/08/21 11/07/21 History insulin aspart U-100 100 unit/mL See Protocol SUBCUT QIDACHS PRN 07/12/21 11/08/21 11/07/21 History (3 mL) subcutaneous pen (Novolog Flexpen U-100 Insulin aspart) pantoprazole 40 mg tablet,delayed 1 tab PO DAILY 07/12/21 11/08/21 11/07/21 History release ascorbic acid (vitamin C) 500 mg 250 mg PO DAILY 07/13/21 11/08/21 11/07/21 History tablet (Vitamin C) calcium carbonate 500 mg calcium 1,000 mg PO BID 07/13/21 11/08/21 11/07/21 History (1,250 mg) tablet (Calcium 500) cholecalciferol (vitamin D3) 25 25 mcg PO DAILY 07/13/21 11/08/21 11/07/21 History mcg (1,000 unit) tablet (Vitamin D3) cyanocobalamin (vitamin B-12) 1,000 mcg PO DAILY 07/13/21 11/08/21 11/07/21 History 1,000 mcg tablet duloxetine 60 mg capsule,delayed 60 mg PO DAILY 07/13/21 11/08/21 11/07/21 History release memantine 10 mg tablet 10 mg PO BID 07/13/21 11/08/21 11/07/21 History metoprolol succinate 50 mg 1 tab PO DAILY 07/13/21 11/08/21 11/07/21 History tablet,extended release 24 hr aspirin 81 mg tablet,delayed 81 mg PO DAILY 11/08/21 11/08/21 11/07/21 History release insulin glargine U-300 conc 300 48 unit SUBCUT DAILY 11/08/21 11/08/21 11/07/21 History unit/mL (1.5 mL) subcutaneous pen (Toujeo SoloStar U-300 Insulin) losartan 50 mg tablet 1 tab PO DAILY 11/08/21 11/08/21 11/07/21 History Physical Exam Vital Signs: Vital Signs: Last Vital Signs Temp 97.7 F 11/08/21 09:32 Pulse 92 11/08/21 09:32 Resp 18 11/08/21 09:32 BP 124/64 11/08/21 09:32 Pulse Ox 92 11/08/21 09:32 BMI result Body Mass Index 30.8 GENERAL APPEARANCE: in no acute distress, pleasant. NECK: no carotid bruit, no jugular venous distention. SKIN: no suspicious lesions, warm and dry. HEART: no murmurs, regular rate and rhythm. LUNGS: clear to auscultation bilaterally. ABDOMEN: soft, nontender. EXTREMITIES: no edema. PERIPHERAL PULSES: Left radial artery is harvested for bypass. NEUROLOGIC: No gross deficits, AAO X 3 Objective Labs and Meds Result diagrams: 11/08/21 04:56 11/08/21 04:40 Lab results: Laboratory Results - last 24 hr 11/08/21 11/08/21 11/08/21 04:40 04:40 04:40 WBC RBC Hgb Hct MCV MCH MCHC RDW Plt Count MPV Immature Gran % (Auto) Neut % (Auto) Lymph % (Auto) [place] % (Auto) Eos % (Auto) Baso % (Auto) Lymph # (Auto) [place] # (Auto) Eos # (Auto) Baso # (Auto) Abs Immat Gran (auto) Absolute Neuts (auto) Absolute Nucleated RBC Nucleated RBC % (auto) PT 11.3 INR 1.0 Sodium 137 Potassium 4.6 Chloride 100 Carbon Dioxide 20 L Anion Gap 22 H BUN 15 Creatinine 1.29 Estim Creat Clear Calc 60.6 Estimated GFR 55 Random Glucose 347 H D Calcium 9.5 D Total Bilirubin 0.6 AST 44 H D ALT 60 H Alkaline Phosphatase 120 H D Troponin I High Sens 14.6 Total Protein 7.2 Albumin 4.3 D Lipase 38 Urine Color Urine Appearance Urine pH Ur Specific [place] Urine Protein Urine Glucose (UA) Urine Ketones Urine Blood Urine Nitrite Ur Leukocyte Esterase Urine RBC Urine WBC Ur Squamous Epith Cells Urine Bacteria COVID-19 (XIAO) COVID-19 Clin Com 11/08/21 11/08/21 11/08/21 04:56 05:45 09:52 WBC 11.4 H RBC 5.44 Hgb 15.8 Hct 47.4 MCV 87.1 MCH 29.0 MCHC 33.3 RDW 14.8 Plt Count 177 D MPV 10.3 Immature Gran % (Auto) 0.4 Neut % (Auto) 69.8 Lymph % (Auto) 17.8 L [place] % (Auto) 9.2 Eos % (Auto) 2.1 Baso % (Auto) 0.7 Lymph # (Auto) 2.0 [place] # (Auto) 1.1 Eos # (Auto) 0.2 Baso # (Auto) 0.1 Abs Immat Gran (auto) 0.05 H Absolute Neuts (auto) 8.0 Absolute Nucleated RBC 0.000 Nucleated RBC % (auto) 0.0 PT INR Sodium Potassium Chloride Carbon Dioxide Anion Gap BUN Creatinine Estim Creat Clear Calc Estimated GFR Random Glucose Calcium Total Bilirubin AST ALT Alkaline Phosphatase Troponin I High Sens 27.6 D Total Protein Albumin Lipase Urine Color Urine Appearance Urine pH Ur Specific [place] Urine Protein Urine Glucose (UA) Urine Ketones Urine Blood Urine Nitrite Ur Leukocyte Esterase Urine RBC Urine WBC Ur Squamous Epith Cells Urine Bacteria COVID-19 (XIAO) Negative COVID-19 Clin Com See Note 11/08/21 11/08/21 09:52 09:52 WBC RBC Hgb Hct MCV MCH MCHC RDW Plt Count MPV Immature Gran % (Auto) Neut % (Auto) Lymph % (Auto) [place] % (Auto) Eos % (Auto) Baso % (Auto) Lymph # (Auto) [place] # (Auto) Eos # (Auto) Baso # (Auto) Abs Immat Gran (auto) Absolute Neuts (auto) Absolute Nucleated RBC Nucleated RBC % (auto) PT INR Sodium Potassium Chloride Carbon Dioxide Anion Gap BUN Creatinine Estim Creat Clear Calc Estimated GFR Random Glucose Calcium Total Bilirubin AST ALT Alkaline Phosphatase Troponin I High Sens 42.5 H D Total Protein Albumin Lipase Urine Color YELLOW Urine Appearance CLEAR Urine pH 6.0 Ur Specific [place] 1.015 Urine Protein 1+ H Urine Glucose (UA) >=1000 H Urine Ketones NEG Urine Blood NEG Urine Nitrite NEG Ur Leukocyte Esterase NEG Urine RBC 0 Urine WBC 1-4 Ur Squamous Epith Cells TRACE Urine Bacteria TRACE COVID-19 (XIAO) COVID-19 Clin Com Imaging Radiologist's impression: Impressions Chest X-Ray 11/08/21 05:00 IMPRESSION: Clear lungs. Assessment and Plan (1) ACS (acute coronary syndrome): Status: Acute Plan Pleasant 71-year-old gentleman who is presenting with chest pain. He has background history of coronary artery bypass surgery 15 years ago. He was following at [facility] before. Hemodynamically stable. Clinically not in heart failure. EKGs showing some lateral T-wave changes. Previous comparison EKG had atrial flutter so hard to say whether T-wave changes are new or not. in any case his symptoms are new and similar to his anginal pain previously. We will start him on heparin drip and discussed with [facility] in transfer him to [facility] f or cardiac catheterization. He can eat and drink for now as he is pain free. He will be NPO after midnight. Thank you for allowing me to participate in the care of your patient. Please feel free to contact me if you have any questions. Procedures Date of Service Date of Service: 11/08/21
[2021-11-08 12:09] VITALS: BMI 28.8
--- NOTE | 2021-11-08 12:22 | PM.DS ---
DS: Providers Provider Date of Service: 11/08/21 Date of admission: 11/08/21 09:39 Primary care physician: Unknown Physician Consults: 11/08/21 09:41 Consult to Cardiology Routine Consulting Provider: Jonas Joyner Reason for consultation: chest pain, history of cad, trop delta >50% DS: Diagnosis Discharge Diagnosis (1) ACS (acute coronary syndrome): Status: Acute (2) Diabetes: Status: Acute (3) PAF (paroxysmal atrial fibrillation): Status: Acute (4) Alzheimer's dementia: Status: Acute DS: Summary Hospital Course Hospital Course: HPI: This is a 71 yo M with a PMH of HTN, HLD, DM, CAD s/p CABG, obesity, KATINA On CPAP, Alzheimer's dementia who presents to the hospital with complaints of substernal chest pain radiating to the RUE which began the night prior to arrival. The patient reports that he awoke in the middle of the night and was feeling weak. He decided to check his sugar which was low in the 60s and so he ate some sweets. Shortly, thereafter, he began having squeezing substernal chest pain, severe in intensity, radaiting to his L arm. He took 3 tabs of nitro and called his daughter and EMS was called. He was given asa 324mg en route to the hospital. By the time he arrived to the ED -- his pain has subsided. His high sensitivity troponin increased from 14 to 28. The ED provider discussed with the on-call ice cream vault worker and he will now be admitted under observation. Hospital Course: Patient was admitted for observation for chest pain. His HS trop-I tripled from 14 to 42. He was evaluated by cardiology and felt his presentation was consistent with ACS/Unstable Angina. He was started on IV heparin drip and will be transferred to [facility]. He is chest pain free at the time of transfer. Thepatients daughter has been informed of the transfer and is in agreement. Of note -- the patient previously had PAF and appears he was on Eliquis. It is unclear when this was discontinued. Needs to be addressed once ACS workup/treatment completed. Time Spent with Patient Time attestation: Total time spent providing and/or coordinating discharge services: Discharge coordination time: Less than 30 minutes Quality: Stroke Does the patient have a stroke diagnosis?: No Physical Exam Vital Signs: Vital Signs: Last Vital Signs Temp 97.7 F 11/08/21 09:32 Pulse 92 11/08/21 09:32 Resp 18 11/08/21 09:32 BP 124/64 11/08/21 09:32 Pulse Ox 92 11/08/21 09:32 BMI result Body Mass Index 28.8 Const: Other: General - no acute distress, appears comfortable Cardiovascular - regular rate and rhythm, S1-S2 Lungs - normal respiratory effort, clear to auscultation bilaterally, no wheezing Abdomen - soft, nontender, no rebound or guarding Extremities - no edema bilaterally Neuro - awake and alert, no focal deficits DS: Data Data Completed and Pending Completed studies during hospitalization [Text1]: Procedures Drainage of Peritoneal Cavity with Drainage Device, Percutaneous Approach (07/30/21) Resection of Gallbladder, Percutaneous Endoscopic Approach (07/13/21) Labs on day of discharge: Laboratory Results - last 24 hr 11/08/21 11/08/21 11/08/21 04:40 04:40 04:40 WBC RBC Hgb Hct MCV MCH MCHC RDW Plt Count MPV Immature Gran % (Auto) Neut % (Auto) Lymph % (Auto) [place] % (Auto) Eos % (Auto) Baso % (Auto) Lymph # (Auto) Arthur # (Auto) Eos # (Auto) Baso # (Auto) Abs Immat Gran (auto) Absolute Neuts (auto) Absolute Nucleated RBC Nucleated RBC % (auto) PT 11.3 INR 1.0 Sodium 137 Potassium 4.6 Chloride 100 Carbon Dioxide 20 L Anion Gap 22 H BUN 15 Creatinine 1.29 Estim Creat Clear Calc 60.6 Estimated GFR 55 Random Glucose 347 H D Calcium 9.5 D Total Bilirubin 0.6 AST 44 H D ALT 60 H Alkaline Phosphatase 120 H D Troponin I High Sens 14.6 Total Protein 7.2 Albumin 4.3 D Lipase 38 Urine Color Urine Appearance Urine pH Ur Specific [place] Urine Protein Urine Glucose (UA) Urine Ketones Urine Blood Urine Nitrite Ur Leukocyte Esterase Urine RBC Urine WBC Ur Squamous Epith Cells Urine Bacteria COVID-19 (XIAO) COVID-19 Clin Com 11/08/21 11/08/21 11/08/21 04:56 05:45 09:52 WBC 11.4 H RBC 5.44 Hgb 15.8 Hct 47.4 MCV 87.1 MCH 29.0 MCHC 33.3 RDW 14.8 Plt Count 177 D MPV 10.3 Immature Gran % (Auto) 0.4 Neut % (Auto) 69.8 Lymph % (Auto) 17.8 L [place] % (Auto) 9.2 Eos % (Auto) 2.1 Baso % (Auto) 0.7 Lymph # (Auto) 2.0 Arthur # (Auto) 1.1 Eos # (Auto) 0.2 Baso # (Auto) 0.1 Abs Immat Gran (auto) 0.05 H Absolute Neuts (auto) 8.0 Absolute Nucleated RBC 0.000 Nucleated RBC % (auto) 0.0 PT INR Sodium Potassium Chloride Carbon Dioxide Anion Gap BUN Creatinine Estim Creat Clear Calc Estimated GFR Random Glucose Calcium Total Bilirubin AST ALT Alkaline Phosphatase Troponin I High Sens 27.6 D Total Protein Albumin Lipase Urine Color Urine Appearance Urine pH Ur Specific [place] Urine Protein Urine Glucose (UA) Urine Ketones Urine Blood Urine Nitrite Ur Leukocyte Esterase Urine RBC Urine WBC Ur Squamous Epith Cells Urine Bacteria COVID-19 (XIAO) Negative COVID-19 Clin Com See Note 11/08/21 11/08/21 09:52 09:52 WBC RBC Hgb Hct MCV MCH MCHC RDW Plt Count MPV Immature Gran % (Auto) Neut % (Auto) Lymph % (Auto) [place] % (Auto) Eos % (Auto) Baso % (Auto) Lymph # (Auto) [place] # (Auto) Eos # (Auto) Baso # (Auto) Abs Immat Gran (auto) Absolute Neuts (auto) Absolute Nucleated RBC Nucleated RBC % (auto) PT INR Sodium Potassium Chloride Carbon Dioxide Anion Gap BUN Creatinine Estim Creat Clear Calc Estimated GFR Random Glucose Calcium Total Bilirubin AST ALT Alkaline Phosphatase Troponin I High Sens 42.5 H D Total Protein Albumin Lipase Urine Color YELLOW Urine Appearance CLEAR Urine pH 6.0 Ur Specific [place] 1.015 Urine Protein 1+ H Urine Glucose (UA) >=1000 H Urine Ketones NEG Urine Blood NEG Urine Nitrite NEG Ur Leukocyte Esterase NEG Urine RBC 0 Urine WBC 1-4 Ur Squamous Epith Cells TRACE Urine Bacteria TRACE COVID-19 (XIAO) COVID-19 Clin Com Discharge Plan Discharge Patient Disposition: Xfer Acute Care Hospital Discharge Diagnosis: Unstable Angina Referrals: Physician,Unknown J [Primary Care Provider] - 1 Week Discharge Medications: New heparin(porcine) in 0.45% NaCl 25,000 unit/250 mL Parenteral Solution 25,000 unit continuous IV infusion .Q0M Qty: 1 0RF Continued donepezil 10 mg tablet 1 tab PO DAILY 0RF glimepiride 4 mg tablet 1 tab PO BID 0RF insulin aspart U-100 [Novolog Flexpen U-100 Insulin] 100 unit/mL (3 mL) insulin pen See Protocol sliding scale dose subcut QIDACHS PRN (Reason: Hyperglycemia) 0RF Protocol: Insulin Correction Scale Less than or equal to 110 ---- Give (units): 0 111 to 150 Give (units): 0 151 to 200 Give (units): 2 201 to 250 Give (units): 4 251 to 300 Give (units): 6 301 to 350 Give (units): 8 Greater than 350 Give (units): 10 Call MD if Blood Glucose > : 350 Rx Instructions: Doctor's Order ezetimibe-simvastatin 10-80 mg tablet 1 tab PO BEDTIME 0RF Jardiance 25 mg tablet 1 tab PO DAILY 0RF pantoprazole 40 mg tablet,delayed release (DR/EC) 1 tab PO DAILY 0RF metoprolol succinate 50 mg tablet extended release 24 hr 1 tab PO DAILY 0RF duloxetine 60 mg capsule,delayed release(DR/EC) 60 mg PO DAILY 0RF cyanocobalamin (vitamin B-12) 1,000 mcg Tablet 1,000 mcg PO DAILY 0RF calcium carbonate [Calcium 500] 500 mg calcium (1,250 mg) Tablet 1,000 mg PO BID 0RF ascorbic acid (vitamin C) [Vitamin C] 500 mg Tablet 250 mg PO DAILY 0RF cholecalciferol (vitamin D3) [Vitamin D3] 25 mcg (1,000 unit) Tablet 25 mcg PO DAILY 0RF memantine 10 mg tablet 10 mg PO BID 0RF losartan 50 mg tablet 1 tab PO DAILY 0RF Toujeo SoloStar U-300 Insulin 300 unit/mL (1.5 mL) insulin pen 48 unit subcut DAILY 0RF aspirin 81 mg Tablet,Delayed Release (Dr/Ec) 81 mg PO DAILY 0RF Discharge Orders: Discharge Order (Routine); Ordered 11/08/21 Ordered By: Jan Up Diet: advance to usual diet Activity on Discharge: As tolerated Stand Alone Forms: Patient Portal Discharge page Care Plan Goals: To transfer to [facility] Health Concerns: ACS/Unstable angina Plan of Treatment: IV heparin drip and transfer to [facility] for further treatment/work up Assessment: See d/c summary
[2021-11-08] MEDS: Heparin Sodium,Porcine/1/2NS 25,000 UNIT/250 ML IV.SOLN 9.1 UNIT IVCONT (12:40)
[2021-11-08] MEDS: Heparin Sodium,Porcine 5,000 UNIT/ML VIAL 4000 UNIT IVPUSH (12:46)
[2021-11-08 12:54] VITALS: BP 140/56; PULSE 60; RESP 18; O2SAT 97
[2021-11-08 13:01] LABS: Prothrombin Time 11.8 SEC (9.9-13.0)
[2021-11-08 13:04] LABS: PTT Heparin Drip 30.3 SEC (53-77.9)
[2021-11-08 14:12] LABS: Glucose, Whole Blood 288 mg/dL (60-115)
[2021-11-08] MEDS: Insulin Lispro 100 UNIT/ML 3 ML VIAL SUBCUT (14:18)
--- NOTE | 2021-11-08 15:51 | PC.NURSE ---
BEGAN REPORT TO SIERRA RN OVER AT [facility], PER SIERRA RN, DIFFICULTY WAS HAD DUE TO [employer] USEAGE. PLAN THAT SIERRA RN WILL CALL BACK FOR FULL REPORT ON PHONE LINE.
== END 2021-11-08 18:10 | disposition short-term general hospital (02) ==
LOC: HO.ED 06:52 → HO.EDOVER 09:43
PROVIDERS: Internal Medicine; Admitting Provider Family Medicine; Emergency Provider Student in an Organized Health Care Education/Training Program; Visit Provider Family Medicine
DX: R07.9 Chest pain, unspecified (principal); I24.9 Acute ischemic heart disease, unspecified; I25.119 Atherosclerotic heart disease of native coronary artery with unspecified angina pectoris; I44.0 Atrioventricular block, first degree; I45.81 Long QT syndrome; I48.0 Paroxysmal atrial fibrillation; I10 Essential (primary) hypertension; E11.649 Type 2 diabetes mellitus with hypoglycemia without coma; E78.5 Hyperlipidemia, unspecified; G30.9 Alzheimer's disease, unspecified; F02.80 Dementia in other diseases classified elsewhere, unspecified severity, without behavioral disturbance, psychotic disturbance, mood disturbance, and anxiety; G47.33 Obstructive sleep apnea (adult) (pediatric); Z87.891 Personal history of nicotine dependence; Z20.822 Contact with and (suspected) exposure to COVID-19; Z95.1 Presence of aortocoronary bypass graft; Z90.49 Acquired absence of other specified parts of digestive tract; Z98.84 Bariatric surgery status; Z99.89 Dependence on other enabling machines and devices; Z79.4 Long term (current) use of insulin; Z79.82 Long term (current) use of aspirin; Z79.01 Long term (current) use of anticoagulants; Z79.899 Other long term (current) drug therapy
CPT/HCPCS: 36415; 71045; 80053; 81001; 81003; 82947; 83690; 84484; 85025; 85610; 85730; 87635; 93005; 96365; 96366; 96375; 99219; 99285

== ENCOUNTER 2022-03-26 23:27 | Emergency (ER) | payer MEDICARE, BC, SELFPAY ==
--- NOTE | ~2022-03-26 | XR_ITS ---
EXAMINATION: XR CHEST CLINICAL INFORMATION: Chest pain COMPARISON: 11/08/2021 TECHNIQUE: Frontal view of the chest was obtained. FINDINGS: Median sternotomy with coronary artery bypass grafting. Normal symmetric lung volumes. No parenchymal consolidation. No pleural effusion. No pneumothorax. Cardiomediastinal silhouette and pulmonary vascularity are within normal limits. No acute osseous abnormalities. XR/XR chest 1V IMPRESSION: Clear lungs
[2022-03-26 23:36] VITALS: BP 112/60; PULSE 69; PULSE 72; RESP 20; TEMP 36.9; O2SAT 94; O2SAT 96; BMI 31.7
[2022-03-26 23:39] VITALS: BP 104/59; PULSE 67; PULSE 68; RESP 20; TEMP 36.9; O2SAT 94
--- NOTE | 2022-03-26 23:48 | ECG_ITS ---
Test Reason : CHEST PAIN Blood Pressure : / mmHG Vent. Rate : 066 BPM Atrial Rate : 066 BPM P-R Int : 240 ms QRS Dur : 094 ms QT Int : 414 ms P-R-T Axes : 068 -21 115 degrees QTc Int : 434 ms Sinus rhythm with 1st degree A-V block Low voltage QRS Inferior infarct (cited on or before 19-JUL-2021) Cannot rule out Anterior infarct (cited on or before 19-JUL-2021) T wave abnormality, consider lateral ischemia Abnormal ECG When compared with ECG of 08-NOV-2021 03:38, QT has shortened Referred By: Johnson Desir Electronically Signed By:ERIN BROWN MD
[2022-03-27] LABS: MANUAL DIFF FLAG NO
[2022-03-27 00:09] LABS: Basophils Absolute Auto 0.1 X10*3/uL (0.0-0.2); Basophils Percent Auto 1.3 % (0-2); Eosinophils Absolute Auto 0.4 X10*3/uL (0.0-0.4); Eosinophils Percent Auto 3.4 % (0-4); Hematocrit 48.1 % (42.0-52.0); Hemoglobin 16.2 g/dl (14.0-18.0); Imm Gran Abs Auto 0.04 X10*3/uL (0.00-0.03); Imm Gran Pct Auto 0.4 % (0.0-0.4); Lymphocytes Percent Auto 36.9 % (20-40); Mean Corpuscular HGB Conc 33.7 g/dl (31.0-36.0); Mean Corpuscular Hemoglobin 29.3 pg (27.0-33.0); Mean Platelet Volume 9.8 fL (9.4-12.4); Monocytes Absolute Auto 0.9 X10*3/uL (0.1-1.2); Monocytes Percent Auto 8.1 % (2-11); Neutrophils Absolute Auto 5.5 x10*3/uL (2.0-8.3); Neutrophils Percent Auto 49.9 % (45-73); Platelet Count 210 X10*3/uL (160-400); Red Blood Count 5.53 X10*6/uL (4.60-5.80); Red Cell Distribution Width 14.4 % (11.0-16.0)
[2022-03-27 00:20] LABS: Alanine Aminotransferase 38 U/L (0-40); Alkaline Phosphatase 127 U/L (39-117); Anion Gap 17 (12-20); Aspartate Amino Transferase 25 U/L (5-37); Bilirubin Total 0.6 mg/dL (0.0-1.0); Blood Urea Nitrogen 11 mg/dL (9-16); Calcium 8.6 mg/dL (8.4-10.2); Carbon Dioxide 24 mmol/L (22-29); Chloride 106 mmol/L (96-108); Creatinine Clr Calc Pharmacy 75.3; Estimated Glomerular Filt Rate > 60; Ethanol 217 mg/dL; Glucose Random 131 mg/dL (60-115); Lipase 39 U/L (8-78); Potassium 3.6 mmol/L (3.3-5.1); Sodium 143 mmol/L (135-145); Total Protein 6.6 g/dL (6.5-8.0)
[2022-03-27 00:22] LABS: Prothrombin Time 11.6 SEC (10.0-13.1)
[2022-03-27 00:25] LABS: Partial Thromboplastin Time 28.3 SEC (26.0-36.4)
[2022-03-27 00:25] LABS: COVID-19 Test Negative (Negative); Troponin-I High Sensitivity 10.2 ng/L (<3.5-35.0)
[2022-03-27 01:36] LABS: Glucose, Whole Blood 119 mg/dL (60-115)
--- NOTE | 2022-03-27 02:42 | ED_ITS ---
HPI - Chest Pain General Chief Complaint: Chest Pain Stated Complaint: dizziness Time Seen by Provider: 03/26/22 23:37 Source: patient Mode of arrival: EMS Limitations: no limitations History of Present Illness HPI narrative: 71-year-old man who presents emergency department for evaluation of chest pain the patient states that he was in bed resting around 22:30 when he had a gradual onset of midsternal chest pain. He describes the pain is a moderate, 6/10, constant squeezing sensation. The pain lasted approximately 5 minutes. The pain did not radiate to his neck, jaw, arms or back. States that his skin got clammy and felt dizzy and wobbly. He denied shortness of breath, nausea or vomiting. Patient states that he did have heart attack in the past and had a 4 vessel bypass when he was 54 years old. He was concerned that his pain may be secondary to heart attack therefore he called an ambulance and was transported to the emergency department. The patient states that he has not had any dyspnea on exertion, fatigue with exertion or chest pain with exertion recently. He denied fever, chills, rhin orrhea, sore throat, cough, change in his bowel movements, frequency urgency or dysuria. The patient states that he was drinking alcohol any drink for 5 vodka drinks last night. MD complaint: chest pain Pertinent past history: coronary artery disease, prior [place] and CABG (At age 54) Onset (ago): hour(s) (2) Timing of current episode: constant (Gradual onset) Prior episodes: No Onset: during rest Pain location: substernal Pain radiation: none Severity: moderate Pain scale (0-10): 6 Quality: other (Squeezing) Relieving factors: nothing Exacerbating factors: nothing Associated symptoms: diaphoresis and other Risk Factors Coronary artery disease risk factors: diabetes and hyperlipidemia Related Data Home Medications Medication Instructions Recorded Confirmed donepezil 10 mg tablet 1 tab PO DAILY 07/12/21 11/08/21 empagliflozin 25 mg tablet 1 tab PO DAILY 07/12/21 11/08/21 (Jardiance) ezetimibe 10 mg-simvastatin 80 mg 1 tab PO BEDTIME 07/12/21 11/08/21 tablet glimepiride 4 mg tablet 1 tab PO BID 07/12/21 11/08/21 insulin aspart U-100 100 unit/mL See Protocol subcut QIDACHS PRN 07/12/21 11/08/21 (3 mL) subcutaneous pen (Novolog Hyperglycemia Flexpen U-100 Insulin aspart) pantoprazole 40 mg tablet,delayed 1 tab PO DAILY 07/12/21 11/08/21 release ascorbic acid (vitamin C) 500 mg 250 mg PO DAILY 07/13/21 11/08/21 tablet (Vitamin C) calcium carbonate 500 mg calcium 1,000 mg PO BID 07/13/21 11/08/21 (1,250 mg) tablet (Calcium 500) cholecalciferol (vitamin D3) 25 25 mcg PO DAILY 07/13/21 11/08/21 mcg (1,000 unit) tablet (Vitamin D3) cyanocobalamin (vitamin B-12) 1,000 mcg PO DAILY 07/13/21 11/08/21 1,000 mcg tablet duloxetine 60 mg capsule,delayed 60 mg PO DAILY 07/13/21 11/08/21 release memantine 10 mg tablet 10 mg PO BID 07/13/21 11/08/21 metoprolol succinate 50 mg 1 tab PO DAILY 07/13/21 11/08/21 tablet,extended release 24 hr aspirin 81 mg tablet,delayed 81 mg PO DAILY 11/08/21 11/08/21 release insulin glargine U-300 conc 300 48 unit subcut DAILY 11/08/21 11/08/21 unit/mL (1.5 mL) subcutaneous pen (Toujeo SoloStar U-300 Insulin) losartan 50 mg tablet 1 tab PO DAILY 11/08/21 11/08/21 Previous Rx's Medication Instructions Recorded heparin (porcine) 25,000 unit/250 25,000 unit (250 mL) continuous IV 11/08/21 mL in 0.45 % sodium chloride IV infusion .Q0M #1 mL soln Allergies Allergy/AdvReac Type Severity Reaction Status Date / Time No Known Allergies Allergy Verified 08/25/21 13:26 Review of Systems Review of Systems: Yes all other systems are reviewed and are negative [facility] Past Medical History 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 S/P laparoscopic cholecystectomy Family History Family History Father CAD (coronary artery disease) Sister CAD (coronary artery disease) Social History Social History Household Members: None Housing: Apartment Do you presently have visiting nurse or other home services: No Alcohol intake: current Alcohol intake frequency: 3 or more drinks per day Alcohol type: hard liquor Patient Tobacco Use Status: Current everyday Tobacco user Tobacco use type: Smokeless Tobacco Use of substances other than those prescribed or required for medical reasons: No Substance Use Type: Other Advance Directives: No Advance Directives Information Provided: No service: No Current occupational status: retired Physical Exam Vital Signs: Vital Signs: Last Vital Signs Temp 98.0 F 03/27/22 04:36 Pulse 71 03/27/22 04:36 Resp 14 03/27/22 04:36 BP 107/55 L 03/27/22 04:36 Pulse Ox 97 03/27/22 04:00 O2 Del Method [place] 03/27/22 04:36 BMI result Body Mass Index 31.7 Const: General: cooperative and no acute distress Orientation/consciousness: oriented to person and oriented to place Limitations: no limitations HEENT: Head: Yes normal to inspection, Yes normocephalic and Yes atraumatic Ears: external ears normal General nose exam: Normal external nose present Face and sinus: Yes normal facial exam Mouth: Normal oral and palatal mucosa present Throat: Yes posterior oropharynx normal Eyes: General: appearance normal, both eyes and all related structures Pupils: Equal, round and reactive pupils present Neck: Neck: Yes normal visual inspection, Yes no lymphadenopathy, Yes trachea midline and Yes supple Chest: Chest palpation & inspection: normal inspection of the chest and normal palpation of entire chest wall Resp: Effort & Inspection: normal respiratory effort and able to speak in complete sentences Auscultation: clear to auscultation bilaterally Cardio: Rate: regular rate Rhythm: regular rhythm Heart sounds: S1 normal heart sound present, S2 normal heart sound present and no murmurs GI: Inspection: Yes normal to inspection Palpation (GI): Soft to palpation, nontender and no guarding Auscultation: normal bowel sounds : General: Yes no CVA tenderness Back/Spine/Pelvis: Back: no CVA tenderness Skin: General skin exam: no rashes or lesions noted Neuro: General: oriented to person and oriented to place Cranial nerves: Yes CN's II-XII intact bilaterally and Yes Equal, round and reactive pupils present Cognition (Neuro): normal cognition Motor exam (neuro): 5/5 motor strength present throughout Extrem: General: Yes normal to inspection Psych: Appearance: grossly normal Speech and movement: Normal speech and movement present Affect: normal affect Attitude: cooperative Thought process: Normal thought process present Thought content: Normal thought content present Course Course Course Narrative: 71-year-old male who presents emergency department for evaluation of chest pain that came on at rest at around 22:30 last night, the pain was a substernal squeezing sensation which was constant, moderate in intensity 6/10 and came on gradually. Patient had associated diaphoresis with no other associated symptoms. Pain lasted approximately 5 minutes and resolved without treatment. Patient's physical examination was unremarkable. Laboratory evaluation did reveal a high sensitivity troponin I which was detectable but not elevated at 10 .2. Repeat 3 hour troponin was unchanged at 9.4. Patient's chest x-ray was unremarkable and the patient's 12 EKG revealed no evidence of acute injury or ischemia. At this time I do not think that the patient's pain is secondary to myocardial infarction or myocardial injury I did discuss this with the patient. Patient was drinking alcohol last night he did have an elevated alcohol level of 217. Possible that his symptoms may have been secondary to gastritis or esophagitis I did discuss this with him. Patient was discharged home. MDM - Chest Pain Lab Data Result diagrams: 03/26/22 23:57 03/26/22 23:57 Labs: Lab Results 03/26/22 03/26/22 03/26/22 Range/Units 23:43 23:57 23:57 WBC 11.0 H (4.8-10.8) X10*3/uL RBC 5.53 (4.60-5.80) X10*6/uL Hgb 16.2 (14.0-18.0) g/dl Hct 48.1 (42.0-52.0) % MCV 87.0 (80.0-98.0) fL MCH 29.3 (27.0-33.0) pg MCHC 33.7 (31.0-36.0) g/dl RDW 14.4 (11.0-16.0) % Plt Count 210 (160-400) X10*3/uL MPV 9.8 (9.4-12.4) fL Immature Gran % (Auto) 0.4 (0.0-0.4) % Neut % (Auto) 49.9 (45-73) % Lymph % (Auto) 36.9 (20-40) % Warren % (Auto) 8.1 (2-11) % Eos % (Auto) 3.4 (0-4) % Baso % (Auto) 1.3 (0-2) % Lymph # (Auto) 4.0 (1.2-4.9) X10*3/uL Warren # (Auto) 0.9 (0.1-1.2) X10*3/uL Eos # (Auto) 0.4 (0.0-0.4) X10*3/uL Baso # (Auto) 0.1 (0.0-0.2) X10*3/uL Abs Immat Gran (auto) 0.04 H (0.00-0.03) X10*3/uL Absolute Neuts (auto) 5.5 (2.0-8.3) x10*3/uL Absolute Nucleated RBC 0.000 (0.0-0.012) X10*3/uL Nucleated RBC % (auto) 0.0 (0.0-0.2) /100WBC PT (10.0-13.1) SEC INR (0.9-1.1) APTT (26.0-36.4) SEC Sodium 143 (135-145) mmol/L Potassium 3.6 D (3.3-5.1) mmol/L Chloride 106 (96-108) mmol/L Carbon Dioxide 24 (22-29) mmol/L Anion Gap 17 (12-20) BUN 11 (9-16) mg/dL Creatinine 1.02 (0.5-1.4) mg/dL Estim Creat Clear Calc 75.3 Estimated GFR > 60 POC Glucose 119 H (60-115) mg/dL Random Glucose 131 H D (60-115) mg/dL Calcium 8.6 D (8.4-10.2) mg/dL Total Bilirubin 0.6 (0.0-1.0) mg/dL AST 25 D (5-37) U/L ALT 38 (0-40) U/L Alkaline Phosphatase 127 H (39-117) U/L Troponin I High Sens (<3.5-35.0) ng/L Total Protein 6.6 (6.5-8.0) g/dL Albumin 4.0 (3.5-5.0) g/dL Lipase 39 (8-78) U/L Ethyl Alcohol 217 mg/dL COVID-19 ([facility]) (Negative) COVID-19 Clin Com 03/26/22 03/26/22 03/27/22 Range/Units 23:57 23:57 00:12 WBC (4.8-10.8) X10*3/uL RBC (4.60-5.80) X10*6/uL Hgb (14.0-18.0) g/dl Hct (42.0-52.0) % MCV (80.0-98.0) fL MCH (27.0-33.0) pg MCHC (31.0-36.0) g/dl RDW (11.0-16.0) % Plt Count (160-400) X10*3/uL MPV (9.4-12.4) fL Immature Gran % (Auto) (0.0-0.4) % Neut % (Auto) (45-73) % Lymph % (Auto) (20-40) % Warren % (Auto) (2-11) % Eos % (Auto) (0-4) % Baso % (Auto) (0-2) % Lymph # (Auto) (1.2-4.9) X10*3/uL Warren # (Auto) (0.1-1.2) X10*3/uL Eos # (Auto) (0.0-0.4) X10*3/uL Baso # (Auto) (0.0-0.2) X10*3/uL Abs Immat Gran (auto) (0.00-0.03) X10*3/uL Absolute Neuts (auto) (2.0-8.3) x10*3/uL Absolute Nucleated RBC (0.0-0.012) X10*3/uL Nucleated RBC % (auto) (0.0-0.2) /100WBC PT (10.0-13.1) SEC INR (0.9-1.1) APTT 28.3 (26.0-36.4) SEC Sodium (135-145) mmol/L Potassium (3.3-5.1) mmol/L Chloride (96-108) mmol/L Carbon Dioxide (22-29) mmol/L Anion Gap (12-20) BUN (9-16) mg/dL Creatinine (0.5-1.4) mg/dL Estim Creat Clear Calc Estimated GFR POC Glucose (60-115) mg/dL Random Glucose (60-115) mg/dL Calcium (8.4-10.2) mg/dL Total Bilirubin (0.0-1.0) mg/dL AST (5-37) U/L ALT (0-40) U/L Alkaline Phosphatase (39-117) U/L Troponin I High Sens 10.2 D (<3.5-35.0) ng/L Total Protein (6.5-8.0) g/dL Albumin (3.5-5.0) g/dL Lipase (8-78) U/L Ethyl Alcohol mg/dL COVID-19 ([facility]) Negative (Negative) COVID-19 Clin Com See Note 03/27/22 03/27/22 Range/Units 00:12 04:11 WBC (4.8-10.8) X10*3/uL RBC (4.60-5.80) X10*6/uL Hgb (14.0-18.0) g/dl Hct (42.0-52.0) % MCV (80.0-98.0) fL MCH (27.0-33.0) pg MCHC (31.0-36.0) g/dl RDW (11.0-16.0) % Plt Count (160-400) X10*3/uL MPV (9.4-12.4) fL Immature Gran % (Auto) (0.0-0.4) % Neut % (Auto) (45-73) % Lymph % (Auto) (20-40) % Warren % (Auto) (2-11) % Eos % (Auto) (0-4) % Baso % (Auto) (0-2) % Lymph # (Auto) (1.2-4.9) X10*3/uL Warren # (Auto) (0.1-1.2) X10*3/uL Eos # (Auto) (0.0-0.4) X10*3/uL Baso # (Auto) (0.0-0.2) X10*3/uL Abs Immat Gran (auto) (0.00-0.03) X10*3/uL Absolute Neuts (auto) (2.0-8.3) x10*3/uL Absolute Nucleated RBC (0.0-0.012) X10*3/uL Nucleated RBC % (auto) (0.0-0.2) /100WBC PT 11.6 (10.0-13.1) SEC INR 1.0 (0.9-1.1) APTT (26.0-36.4) SEC Sodium (135-145) mmol/L Potassium (3.3-5.1) mmol/L Chloride (96-108) mmol/L Carbon Dioxide (22-29) mmol/L Anion Gap (12-20) BUN (9-16) mg/dL Creatinine (0.5-1.4) mg/dL Estim Creat Clear Calc Estimated GFR POC Glucose (60-115) mg/dL Random Glucose (60-115) mg/dL Calcium (8.4-10.2) mg/dL Total Bilirubin (0.0-1.0) mg/dL AST (5-37) U/L ALT (0-40) U/L Alkaline Phosphatase (39-117) U/L Troponin I High Sens 9.4 (<3.5-35.0) ng/L Total Protein (6.5-8.0) g/dL Albumin (3.5-5.0) g/dL Lipase (8-78) U/L Ethyl Alcohol mg/dL COVID-19 ([facility]) (Negative) COVID-19 Clin Com Discharge Plan Discharge Clinical Impression: Chest pain, Alcohol intoxication Patient Disposition: Home, Self-Care Instructions: Chest Pain (ED) Additional Instructions: Your laboratory evaluation was unremarkable except for an elevated alcohol level. Your 1st troponin was 10.4 (less than 30) in your repeat 3 hour troponin was 9.4 which is not significantly changed in this suggests that you did not have a myocardial infarction/heart attack as the cause of your chest pain today. Continue taking medications as prescribed. Your pain may be secondary to your stomach or your food tube (esophagus) being inflamed by the alcohol that you drinking Take Pepcid 20 mg pills, 1 pill once a day for 1 month. This will reduce the amount of acid that your producing and help your stomach and esophagus heal if it is inflamed Follow-up with your doctor in 2 days. Please return to the emergency department if your symptoms get worse or if you develop any symptoms that are concerning to you. Prescriptions: No Action donepezil 10 mg tablet 1 tab PO DAILY glimepiride 4 mg tablet 1 tab PO BID insulin aspart U-100 [Novolog Flexpen U-100 Insulin] 100 unit/mL (3 mL) insu julieta pen See Protocol subcut JAVIDATIFFANIE MARTE (Reason: Hyperglycemia) Protocol: Insulin Correction Scale Less than or equal to 110 ---- Give (units): 0 111 to 150 Give (units): 0 151 to 200 Give (units): 2 201 to 250 Give (units): 4 251 to 300 Give (units): 6 301 to 350 Give (units): 8 Greater than 350 Give (units): 10 Call MD if Blood Glucose > : 350 Rx Instructions: Doctor's Order ezetimibe-simvastatin 10-80 mg tablet 1 tab PO BEDTIME Jardiance 25 mg tablet 1 tab PO DAILY pantoprazole 40 mg tablet,delayed release (DR/EC) 1 tab PO DAILY metoprolol succinate 50 mg tablet extended release 24 hr 1 tab PO DAILY duloxetine 60 mg capsule,delayed release(DR/EC) 60 mg PO DAILY cyanocobalamin (vitamin B-12) 1,000 mcg Tablet 1,000 mcg PO DAILY calcium carbonate [Calcium 500] 500 mg calcium (1,250 mg) Tablet 1,000 mg PO BID ascorbic acid (vitamin C) [Vitamin C] 500 mg Tablet 250 mg PO DAILY cholecalciferol (vitamin D3) [Vitamin D3] 25 mcg (1,000 unit) Tablet 25 mcg PO DAILY memantine 10 mg tablet 10 mg PO BID losartan 50 mg tablet 1 tab PO DAILY Vero Kimball U-300 Insulin 300 unit/mL (1.5 mL) insulin pen 48 unit subcut DAILY aspirin 81 mg Tablet,Delayed Release (Dr/Ec) 81 mg PO DAILY heparin(porcine) in 0.45% NaCl 25,000 unit/250 mL Parenteral Solution 25,000 unit continuous IV infusion .Q0M Qty: 1 0RF
[2022-03-27 04:00] VITALS: BP 115/64; PULSE 62; RESP 22; O2SAT 97
[2022-03-27 04:34] LABS: Troponin-I High Sensitivity 9.4 ng/L (<3.5-35.0)
[2022-03-27 04:36] VITALS: BP 107/55; PULSE 71; RESP 14; TEMP 36.7
== END 2022-03-27 06:09 | disposition home or self-care (01) ==
PROVIDERS: Emergency Provider Emergency Medicine Emergency Medical Services
DX: R07.9 Chest pain, unspecified (principal); F10.920 Alcohol use, unspecified with intoxication, uncomplicated; Y90.7 Blood alcohol level of 200-239 mg/100 ml; E11.9 Type 2 diabetes mellitus without complications; E78.5 Hyperlipidemia, unspecified; I48.0 Paroxysmal atrial fibrillation; G30.9 Alzheimer's disease, unspecified; F02.80 Dementia in other diseases classified elsewhere, unspecified severity, without behavioral disturbance, psychotic disturbance, mood disturbance, and anxiety; Z79.82 Long term (current) use of aspirin; Z79.4 Long term (current) use of insulin; Z79.899 Other long term (current) drug therapy; F17.200 Nicotine dependence, unspecified, uncomplicated; Z20.822 Contact with and (suspected) exposure to COVID-19
CPT/HCPCS: 36415; 71045; 80053; 82077; 82947; 83690; 84484; 85025; 85610; 85730; 87635; 93005; 99284; 99285

== ENCOUNTER 2022-07-16 22:15 | Emergency (ER) | payer MEDICARE, BC, SELFPAY ==
--- NOTE | ~2022-07-16 | CT_ITS ---
EXAMINATION: NONCONTRAST HEAD CT NONCONTRAST CERVICAL SPINE CT INDICATION INFORMATION: Head injury. Rule out fracture, bleed. Neck pain. COMPARISON: 06/21/2021 TECHNIQUE: Separate noncontrast CT examinations of the head and cervical spine were performed. Coronal and sagittal images were created for each examination at the technologist workstation. This CT examination was performed using dose optimization techniques as appropriate, variously including the following: *Automated exposure control *Adjustment of mA and/or kV according to patient size (this includes techniques or standardized protocols for targeted exams where dose is matched to indication/reason for exam; i.e. extremities or head) *Use of iterative reconstruction technique DLP: 1453 mGy-cm FINDINGS: Head: There is multifocal subarachnoid hemorrhage, greatest along both occipital lobes in the left frontal lobe. Additional prominent area of hemorrhage at the high right parietal region. No definite subdural hematoma. No definite parenchymal hemorrhage, though the focus of left occipital hemorrhage on series 3 image 32 could be parenchymal rather than subarachnoid.. There is no evidence of acute territorial infarction. No abnormal mass effect or midline shift is seen. [place] to white matter differentiation is well preserved. No hydrocephalus. Proportional prominence of the ventricles and sulcal spaces is consistent with mild volume loss. Patchy periventricular and deep white matter hypoattenuation is consistent with mild small vessel ischemic changes. Prominent soft tissue swelling overlies the occipital region. No calvarial fracture. The mastoid air cells and visualized portions of the paranasal sinuses are well aerated. Cervical spine: There is slight anterolisthesis of C3 on C4 with calcifications of the disc. There is otherwise anatomic alignment of the vertebral bodies and posterior elements. The atlantoaxial and atlantooccipital articulations are intact. Vertebral body heights are maintained. There is multilevel intervertebral disc space narrowing with endplate osteophyte formation and facet arthropathy. No evidence of acute fracture. No prevertebral soft tissue swelling. Visualized portions of the lung apices are unremarkable. The thyroid gland is unremarkable. CT/CT cervical spine wo IV con IMPRESSION: 1. Multifocal subarachnoid hemorrhage. No definite intraparenchymal hemorrhage, though attention should be given on follow-up. 2. No acute fracture or malalignment of the cervical spine. Moderate degenerative change. This critical result was discussed with Johnson Desir MD by telephone at 07/17/2022 12:18 AM and it was ascertained that the content and urgency of the report was understood at the time of direct communication.
[2022-07-16 22:24] VITALS: BP 131/85; BP 164/66; PULSE 78; PULSE 84; RESP 18; TEMP 36.3; O2SAT 93; O2SAT 94; BMI 25.7
[2022-07-16 23:03] LABS: MANUAL DIFF FLAG NO
[2022-07-16 23:05] LABS: Basophils Absolute Auto 0.1 X10*3/uL (0.0-0.2); Basophils Percent Auto 0.9 % (0-2); Eosinophils Absolute Auto 0.3 X10*3/uL (0.0-0.4); Eosinophils Percent Auto 2.7 % (0-4); Hematocrit 52.8 % (42.0-52.0); Hemoglobin 17.6 g/dl (14.0-18.0); Imm Gran Abs Auto 0.04 X10*3/uL (0.00-0.03); Imm Gran Pct Auto 0.4 % (0.0-0.4); Lymphocytes Percent Auto 28.5 % (20-40); Mean Corpuscular HGB Conc 33.3 g/dl (31.0-36.0); Mean Corpuscular Hemoglobin 29.9 pg (27.0-33.0); Mean Corpuscular Volume 89.6 fL (80.0-98.0); Mean Platelet Volume 10.5 fL (9.4-12.4); Monocytes Absolute Auto 0.8 X10*3/uL (0.1-1.2); Monocytes Percent Auto 7.6 % (2-11); Neutrophils Absolute Auto 6.3 x10*3/uL (2.0-8.3); Neutrophils Percent Auto 59.9 % (45-73); Platelet Count 189 X10*3/uL (160-400); Red Blood Count 5.89 X10*6/uL (4.60-5.80); Red Cell Distribution Width 13.4 % (11.0-16.0); White Blood Count 10.6 X10*3/uL (4.8-10.8)
[2022-07-16 23:11] LABS: INTERNATIONAL NORM RATIO 1.1 (0.9-1.1); Prothrombin Time 12.2 SEC (10.0-13.1)
[2022-07-16 23:14] LABS: Partial Thromboplastin Time 31.4 SEC (26.0-36.4)
[2022-07-16 23:19] LABS: Alanine Aminotransferase 39 U/L (0-40); Albumin Level 4.8 g/dL (3.5-5.0); Alkaline Phosphatase 115 U/L (39-117); Anion Gap 20 (12-20); Aspartate Amino Transferase 33 U/L (5-37); Bilirubin Total 0.5 mg/dL (0.0-1.0); Blood Urea Nitrogen 17 mg/dL (9-16); Calcium 9.5 mg/dL (8.4-10.2); Carbon Dioxide 22 mmol/L (22-29); Chloride 99 mmol/L (96-108); Creatinine Clr Calc Pharmacy 51.1; Estimated Glomerular Filt Rate 51; Ethanol 224 mg/dL; Glucose Random 279 mg/dL (60-115); Lipase 76 U/L (8-78); Potassium 3.9 mmol/L (3.3-5.1); Sodium 137 mmol/L (135-145); Total Protein 7.6 g/dL (6.5-8.0)
[2022-07-16 23:21] LABS: COVID-19 Test Negative (Negative); IDNOW Serial# 16C4AD1C; IDNOW Serial# BCCEAD1C; Influenza A Negative (Negative); Influenza B2 Negative (Negative)
--- NOTE | 2022-07-17 | ECG_ITS ---
Test Reason : FALL Blood Pressure : / mmHG Vent. Rate : 076 BPM Atrial Rate : 076 BPM P-R Int : 270 ms QRS Dur : 104 ms QT Int : 372 ms P-R-T Axes : 055 -12 070 degrees QTc Int : 418 ms Sinus rhythm with marked sinus arrhythmia with 1st degree A-V block with occasional Premature atrial complexes Low voltage QRS RSR' or QR pattern in V1 suggests right ventricular conduction delay Abnormal ECG When compared with ECG of 26-MAR-2022 23:44, Minimal criteria for Anterior infarct are no longer Present T wave inversion no longer evident in Lateral leads Referred By: Johnson Desir Electronically Signed By:LEONEL GEORGE MD
--- NOTE | 2022-07-17 00:06 | ED.FALL ---
HPI - Fall General Chief Complaint: Fall Stated Complaint: fall/etoh Time Seen by Provider: 07/16/22 22:34 Source: patient and EMS Mode of arrival: EMS Limitations: altered mental status (Dementia, ETOH intoxication) History of Present Illness HPI Narrative: 72-year-old male who is brought to the emergency department by EMS after falling out of his [employer]. The patient lacks insight as to why he is here. According to EMS, the patient was drinking. He got out of his who [employer]. He was standing and fell down 2 concrete stairs. This was witnessed by the Uber yard driver. There was no reported loss of consciousness. He was transported to the emergency department by EMS. On arrival, the patient was complaining of head and neck pain. He has a strong odor of alcohol on his breath. Patient states that [place] [facility] [place] remember taking and Uber home or falling. He lacks insight as to why he is here and cannot tell me any details of what occurred prior to coming to the emergency department. The patient does not know of medications he is taking at home. Reviewing his prescription history he may be taking Eliquis and Plavix. It is uncertain if he is taking aspirin. MD complaint: fall Onset (ago): minute(s) (30) Fall from: standing (Fell down 2 concrete stairs) Fall witnessed: yes, by bystander Place fall occurred: other (Unknown) Loss of consciousness: none Prolonged down time: no Symptoms prior to fall: none Context: alcohol use Location of injury: head Severity: moderate Quality: sharp Associated symptoms (after fall): headache and neck pain Related Data Home Medications Medication Instructions Recorded Confirmed donepezil 10 mg tablet 1 tab PO DAILY 07/12/21 11/08/21 empagliflozin 25 mg tablet 1 tab PO DAILY 07/12/21 11/08/21 (Jardiance) ezetimibe 10 mg-simvastatin 80 mg 1 tab PO BEDTIME 07/12/21 11/08/21 tablet glimepiride 4 mg tablet 1 tab PO BID 07/12/21 11/08/21 insulin aspart U-100 100 unit/mL See Protocol subcut QIDACHS PRN 07/12/21 11/08/21 (3 mL) subcutaneous pen (Novolog Hyperglycemia Flexpen U-100 Insulin aspart) pantoprazole 40 mg tablet,delayed 1 tab PO DAILY 07/12/21 11/08/21 release ascorbic acid (vitamin C) 500 mg 250 mg PO DAILY 07/13/21 11/08/21 tablet (Vitamin C) calcium carbonate 500 mg calcium 1,000 mg PO BID 07/13/21 11/08/21 (1,250 mg) tablet (Calcium 500) cholecalciferol (vitamin D3) 25 25 mcg PO DAILY 07/13/21 11/08/21 mcg (1,000 unit) tablet (Vitamin D3) cyanocobalamin (vitamin B-12) 1,000 mcg PO DAILY 07/13/21 11/08/21 1,000 mcg tablet duloxetine 60 mg capsule,delayed 60 mg PO DAILY 07/13/21 11/08/21 release memantine 10 mg tablet 10 mg PO BID 07/13/21 11/08/21 metoprolol succinate 50 mg 1 tab PO DAILY 07/13/21 11/08/21 tablet,extended release 24 hr aspirin 81 mg tablet,delayed 81 mg PO DAILY 11/08/21 11/08/21 release insulin glargine U-300 conc 300 48 unit subcut DAILY 11/08/21 11/08/21 unit/mL (1.5 mL) subcutaneous pen (Toujeo SoloStar U-300 Insulin) losartan 50 mg tablet 1 tab PO DAILY 11/08/21 11/08/21 Previous Rx's Medication Instructions Recorded heparin (porcine) 25,000 unit/250 25,000 unit (250 mL) continuous IV 11/08/21 mL in 0.45 % sodium chloride IV infusion .Q0M #1 mL soln Allergies Allergy/AdvReac Type Severity Reaction Status Date / Time No Known Allergies Allergy Verified 08/25/21 13:26 Review of Systems Review of Systems: Yes all other systems are reviewed and are negative [facility] Past Medical History [facility] Narrative: Social history: The patient states he lives in [place] by himself. He does drink alcohol. He does smoke cigarettes. 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 S/P laparoscopic cholecystectomy Family History Family History Father CAD (coronary artery disease) Sister CAD (coronary artery disease) Social History Social History Household Members: None Housing: Apartment Do you presently have visiting nurse or other home services: No Alcohol intake: current Alcohol intake frequency: 3 or more drinks per day Alcohol type: hard liquor Patient Tobacco Use Status: Current everyday Tobacco user Tobacco use type: Smokeless Tobacco Substance Use Type: Other Advance Directives: Yes Advance Directives on File: Yes Advance Directives Date on File: 08/02/21 service: No Current occupational status: retired Physical Exam Vital Signs: Vital Signs: Last Vital Signs Temp 97.4 F 07/16/22 22:24 Pulse 78 07/16/22 22:24 Resp 18 07/16/22 22:24 BP 164/66 H 07/16/22 22:24 Pulse Ox 93 07/16/22 22:24 O2 Del Method 07/16/22 22:24 BMI result Body Mass Index 25.7 Const: Other: Awake, alert, elderly male patient, patient has dried blood in his mouth, he has a strong odor of alcohol on his breath. He lacks insight as to why he is here but does answer questions appropriately and follows commands. Orientation/consciousness: oriented to person HEENT: Other: The patient has a hematoma over these occipital area of his scalp which is tender, there is an abrasion I do not see an obvious laceration Ears: external ears normal General nose exam: Normal external nose present Face and sinus: Yes normal facial exam Eyes: General: appearance normal, both eyes and all related structures Pupils: Equal, round and reactive pupils present Neck: Neck: Yes normal visual inspection, Yes no lymphadenopathy, Yes trachea midline and Yes supple Chest: Chest palpation & inspection: normal inspection of the chest and normal palpation of entire chest wall Resp: Effort & Inspection: normal respiratory effort and able to speak in complete sentences Auscultation: clear to auscultation bilaterally Cardio: Rate: regular rate Rhythm: regular rhythm Heart sounds: S1 normal heart sound present, S2 normal heart sound present and no murmurs GI: Inspection: Yes normal to inspection Palpation (GI): Soft to palpation, nontender and no guarding Auscultation: normal bowel sounds : General: Yes no CVA tenderness Back/Spine/Pelvis: Back: no CVA tenderness Skin: General skin exam: no rashes or lesions noted Neuro: General: oriented to person Cranial nerves: Yes CN's II-XII intact bilaterally and Yes Equal, round and reactive pupils present Motor exam (neuro): 5/5 motor strength present throughout Extrem: General: Yes normal to inspection Psych: Appearance: grossly normal Speech and movement: Normal speech and movement present Affect: normal affect Attitude: cooperative Course Course Course Narrative: 72-year-old male with a history history of Alzheimer disease, paroxysmal atrial fibrillation, acute coronary syndrome, diabetes who presents emergency department for evaluation of a fall. Patient states he was drinking at the [employer]. EMS reports that that the patient took into per home, he walked up 2 stone steps and then fell striking his head on concrete. There was no reported loss of consciousness. Here in the emergency department the patient is awake, appears to be acutely intoxicated, has no memory of the events prior to the fall or after the fall. His exam did reveal a a occipital hematoma with an abrasion in this area and C-spine tenderness. His exam was otherwise unremarkable. Did order laboratory evaluation to include CBC, CMP, PT/INR, PTT, ETOH level, urine drug screen. CT scan of the head and cervical spine were also ordered The patient does not know what medications he is taking. In reviewing his prescription history, he may be taking Eliquis and Plavix. It is uncertain if he is on aspirin 0019: I did review the CT scan of the patient's brain and cervical spine and I also obtained a in urgent reading from the radiologist. The CT scan of the spine revealed arthritic changes only with no acute fracture. CT scan of the brain revealed multifocal areas of subarachnoid hemorrhage with no clear intraparenchymal hemorrhage and no skull fracture. Given this finding, I will keep the patient in the C-collar and contact [facility] for trauma transferred. Laboratory evaluation: H&H was normal 17.6 and 52.8. Platelet count normal 188,000. PT/INR and PTT were normal. Glucose elevated 279. ETOH elevated 224. COVID-19 and influenza were negative. 0055: I did discuss the patient's presentation and findings with the covering trauma surgeon at [facility], Dr. Lewis and he did accept the patient as an ED to ED transfer. He requested that we give the patient TXA 1000 mg IV and Kcentra (prothrombin complex concentrate). Given the fact that he has a life-threatening bleed, both of these medications would be appropriate and could be life saving this situation. MDM - Fall Medical Records Attestation: I reviewed the patient's medical records. Lab Data Attestation: I reviewed the patient's lab results. Result diagrams: 07/16/22 22:58 07/16/22 22:58 Labs: Lab Results 07/16/22 07/16/22 07/16/22 Range/Units 22:58 22:58 22:58 WBC 10.6 (4.8-10.8) X10*3/uL RBC 5.89 H (4.60-5.80) X10*6/uL Hgb 17.6 (14.0-18.0) g/dl Hct 52.8 H (42.0-52.0) % MCV 89.6 (80.0-98.0) fL MCH 29.9 (27.0-33.0) pg MCHC 33.3 (31.0-36.0) g/dl RDW 13.4 (11.0-16.0) % Plt Count 189 (160-400) X10*3/uL MPV 10.5 (9.4-12.4) fL Immature Gran % (Auto) 0.4 (0.0-0.4) % Neut % (Auto) 59.9 (45-73) % Lymph % (Auto) 28.5 (20-40) % [place] % (Auto) 7.6 (2-11) % Eos % (Auto) 2.7 (0-4) % Baso % (Auto) 0.9 (0-2) % Lymph # (Auto) 3.0 (1.2-4.9) X10*3/uL [place] # (Auto) 0.8 (0.1-1.2) X10*3/uL Eos # (Auto) 0.3 (0.0-0.4) X10*3/uL Baso # (Auto) 0.1 (0.0-0.2) X10*3/uL Abs Immat Gran (auto) 0.04 H (0.00-0.03) X10*3/uL Absolute Neuts (auto) 6.3 (2.0-8.3) x10*3/uL Absolute Nucleated RBC 0.000 (0.0-0.012) X10*3/uL Nucleated RBC % (auto) 0.0 (0.0-0.2) /100WBC PT (10.0-13.1) SEC INR (0.9-1.1) APTT (26.0-36.4) SEC Sodium 137 (135-145) mmol/L Potassium 3.9 (3.3-5.1) mmol/L Chloride 99 (96-108) mmol/L Carbon Dioxide 22 (22-29) mmol/L Anion Gap 20 (12-20) BUN 17 H D (9-16) mg/dL Creatinine 1.37 (0.5-1.4) mg/dL Estim Creat Clear Calc 51.1 Estimated GFR 51 Random Glucose 279 H D (60-115) mg/dL Calcium 9.5 D (8.4-10.2) mg/dL Total Bilirubin 0.5 (0.0-1.0) mg/dL AST 33 (5-37) U/L ALT 39 (0-40) U/L Alkaline Phosphatase 115 (39-117) U/L Total Protein 7.6 (6.5-8.0) g/dL Albumin 4.8 (3.5-5.0) g/dL Lipase 76 (8-78) U/L Ethyl Alcohol 224 mg/dL COVID-19 (XIAO) Negative (Negative) COVID-19 Clin Com See Note Influenza Type A (CHARO) (Negative) Influenza Type B (CHARO) (Negative) Influenza A & B Note 07/16/22 07/16/22 Range/Units 22:58 22:58 WBC (4.8-10.8) X10*3/uL RBC (4.60-5.80) X10*6/uL Hgb (14.0-18.0) g/dl Hct (42.0-52.0) % MCV (80.0-98.0) fL MCH (27.0-33.0) pg MCHC (31.0-36.0) g/dl RDW (11.0-16.0) % Plt Count (160-400) X10*3/uL MPV (9.4-12.4) fL Immature Gran % (Auto) (0.0-0.4) % Neut % (Auto) (45-73) % Lymph % (Auto) (20-40) % [place] % (Auto) (2-11) % Eos % (Auto) (0-4) % Baso % (Auto) (0-2) % Lymph # (Auto) (1.2-4.9) X10*3/uL [place] # (Auto) (0.1-1.2) X10*3/uL Eos # (Auto) (0.0-0.4) X10*3/uL Baso # (Auto) (0.0-0.2) X10*3/uL Abs Immat Gran (auto) (0.00-0.03) X10*3/uL Absolute Neuts (auto) (2.0-8.3) x10*3/uL Absolute Nucleated RBC (0.0-0.012) X10*3/uL Nucleated RBC % (auto) (0.0-0.2) /100WBC PT 12.2 (10.0-13.1) SEC INR 1.1 (0.9-1.1) APTT 31.4 (26.0-36.4) SEC Sodium (135-145) mmol/L Potassium (3.3-5.1) mmol/L Chloride (96-108) mmol/L Carbon Dioxide (22-29) mmol/L Anion Gap (12-20) BUN (9-16) mg/dL Creatinine (0.5-1.4) mg/dL Estim Creat Clear Calc Estimated GFR Random Glucose (60-115) mg/dL Calcium (8.4-10.2) mg/dL Total Bilirubin (0.0-1.0) mg/dL AST (5-37) U/L ALT (0-40) U/L Alkaline Phosphatase (39-117) U/L Total Protein (6.5-8.0) g/dL Albumin (3.5-5.0) g/dL Lipase (8-78) U/L Ethyl Alcohol mg/dL COVID-19 (XIAO) (Negative) COVID-19 Clin Com Influenza Type A (CHARO) Negative (Negative) Influenza Type B (CHARO) Negative (Negative) Influenza A & B Note See Note ECG Data Attestation: I personally reviewed and interpreted this ECG as follows: Interpretation: 2358: Sinus rhythm with a first-degree AV block with TX interval 270 milliseconds, prolonged QRS of 104 milliseconds, normal QTC. Patient has PACs with no PVCs. There was no ST segment elevation, no ST segment depression, inverted T-waves in V1 and V2. Compared to EKG dated 03/26/2022 the first-degree AV block is old, inverted T-waves in V1 and V2 are new Critical Care Time Critical Care Time Critical Care Time: Yes Total Critical Care Time: 60 Attestation: Critical Care: The patient was critically ill with a high probability of imminent or life threatening deterioration. I spent greater than 30 minutes of discontinuous time evaluating the patient,delivering critical care at the bedside, discussing and evaluating pertinent data with consultants. Critical care time does not include time spent performing separately billable procedures or teaching. Total time spent performing critical care was 60 minutes. Discharge Plan Discharge Clinical Impression: Fall, Head injury, Subarachnoid hemorrhage, Neck pain, Alcohol intoxication Patient Disposition: [facility] Transfer Details: [facility] ED to ED transfer, excepting trauma surgeon, Dr. Lewis Prescriptions: No Action donepezil 10 mg tablet 1 tab PO DAILY glimepiride 4 mg tablet 1 tab PO BID insulin aspart U-100 [Novolog Flexpen U-100 Insulin] 100 unit/mL (3 mL) insulin pen See Protocol subcut QIDACHS PRN (Reason: Hyperglycemia) Protocol: Insulin Correction Scale Less than or equal to 110 ---- Give (units): 0 111 to 150 Give (units): 0 151 to 200 Give (units): 2 201 to 250 Give (units): 4 251 to 300 Give (units): 6 301 to 350 Give (units): 8 Greater than 350 Give (units): 10 Call MD if Blood Glucose > : 350 Rx Instructions: Doctor's Order ezetimibe-simvastatin 10-80 mg tablet 1 tab PO BEDTIME Jardiance 25 mg tablet 1 tab PO DAILY pantoprazole 40 mg tablet,delayed release (DR/EC) 1 tab PO DAILY metoprolol succinate 50 mg tablet extended release 24 hr 1 tab PO DAILY duloxetine 60 mg capsule,delayed release(DR/EC) 60 mg PO DAILY cyanocobalamin (vitamin B-12) 1,000 mcg Tablet 1,000 mcg PO DAILY calcium carbonate [Calcium 500] 500 mg calcium (1,250 mg) Tablet 1,000 mg PO BID ascorbic acid (vitamin C) [Vitamin C] 500 mg Tablet 250 mg PO DAILY cholecalciferol (vitamin D3) [Vitamin D3] 25 mcg (1,000 unit) Tablet 25 mcg PO DAILY memantine 10 mg tablet 10 mg PO BID losartan 50 mg tablet 1 tab PO DAILY Vero Kimball U-300 Insulin 300 unit/mL (1.5 mL) insulin pen 48 unit subcut DAILY aspirin 81 mg Tablet,Delayed Release (Dr/Ec) 81 mg PO DAILY heparin(porcine) in 0.45% NaCl 25,000 unit/250 mL Parenteral Solution 25,000 unit continuous IV infusion .Q0M Qty: 1 0RF
--- NOTE | 2022-07-17 00:19 | PC.NURSE ---
Spoke with patient's daughter about pt being transferred to [facility]. Daughter is aware.
--- NOTE | 2022-07-17 00:23 | PC.NURSE ---
[facility]'s Transfer Line called at [address] Desir spoke with Darcy gave patient demographics awaiting a call back at this time. Md martínez
--- NOTE | 2022-07-17 01:10 | PC.NURSE ---
[facility] called at 0044 spoke with . Accepted by going to the ER. [facility] called at 0058 for a stat Als transfer,arrived for transport at 0112
[2022-07-17 01:25] VITALS: BP 134/72; PULSE 69; RESP 18; O2SAT 93
[2022-07-17] MEDS: Hum Prothrombin Cplx(PCC)4Fact 2,000 UNIT in Container,Empty 0 ML 480 UNIT IV (01:31)
[2022-07-17] MEDS: Tranexamic Acid 1,000 MG in 0.9 % Sodium Chloride 50 ML 360 MG IV (01:32)
--- NOTE | 2022-07-17 01:35 | PC.NURSE ---
over night pharmacy called to verify the mixing and infusion of Kcentra and tranexmic acid. during this process the pharmacy called back to confirm with doctor Garcia to verify then need due to contraindications of clots forming. verbal order by dr garcia to infuse the Kcentra and the Tranexemic acid. The dose, wtg, constitution and infusing of these two meds verified by myself Becky Schofield weigh and charge worker and maynor clinical coordinator and Lyndsey warner the nurse caring for this pt. this information was also done with the ambulance present and witness med administratrion before transport to [facility].
--- NOTE | 2022-07-17 01:52 | PC.NURSE ---
Addendum entered by Lyndsey Cabrales RN 07/17/22 02:17: 0215 gave report to UNIQUE Larson at [facility] Original Note: Attempted to call report to [facility] starting at 0141, I was put on hold and transferred without being able to give report. Attempted 3 more phone calls without success.
--- NOTE | 2022-07-17 01:57 | PC.NURSE ---
Pt planned to be transferred to [facility] STAT. EMS arrived while KCentra and TXA were being prepared. Medications were hung and started. Order was given to pause TXA due to potential interactions. TXA was paused for about a minute before order was given to resume. Medications were resumed and EMS took the pt for transfer to [facility]. RN, Charge nurse, EMS at bedside with MD nearby throughout.
== END 2022-07-17 01:42 | disposition short-term general hospital (02) ==
PROVIDERS: Emergency Provider Emergency Medicine Emergency Medical Services
DX: S06.6XAA Traumatic subarachnoid hemorrhage with loss of consciousness status unknown, initial encounter (principal); S10.91XA Abrasion of unspecified part of neck, initial encounter; F03.90 Unspecified dementia, unspecified severity, without behavioral disturbance, psychotic disturbance, mood disturbance, and anxiety; M54.2 Cervicalgia; R51.9 Headache, unspecified; F10.129 Alcohol abuse with intoxication, unspecified; Y90.7 Blood alcohol level of 200-239 mg/100 ml; I10 Essential (primary) hypertension; F17.200 Nicotine dependence, unspecified, uncomplicated; E11.9 Type 2 diabetes mellitus without complications; W10.9XXA Fall (on) (from) unspecified stairs and steps, initial encounter; Y93.9 Activity, unspecified; Y92.9 Unspecified place or not applicable; Y99.9 Unspecified external cause status; Z20.822 Contact with and (suspected) exposure to COVID-19; Z71.6 Tobacco abuse counseling; Z79.899 Other long term (current) drug therapy; Z79.4 Long term (current) use of insulin; Z98.84 Bariatric surgery status
CPT/HCPCS: 70450; 72125; 80053; 82077; 83690; 85025; 85610; 85730; 87502; 87635; 93005; 96365; 96366; 96375; 99285; J7168

== ENCOUNTER 2023-10-26 12:58 | Emergency (ER) | payer MEDICARE, BC, SELFPAY ==
--- NOTE | ~2023-10-26 | CT_ITS ---
EXAM: Noncontrast CT scan of the head and cervical spine. INDICATION: Fall with head strike. On blood thinners. COMPARISON: CT head/cervical spine July 16, 2022 TECHNIQUE: Axial slices were obtained from skull base to vertex and displayed. This was followed by helical, multislice, multidetector axial images from the occiput to the upper thorax. Coronal and sagittal reformats of the cervical spine in addition to coronal reformats of the head were obtained at the technologist workstation. DLP: 1264 mGy-cm FINDINGS: HEAD: There is no evidence of acute intracranial hemorrhage or territorial infarction. No abnormal mass effect or midline shift is appreciated. [place]-white differentiation is well preserved. No extra-axial fluid collections. The ventricular system and cortical sulci are prominent, consistent with volume loss. There are areas of low density in the periventricular and subcortical white matter, most consistent with sequelae of microvascular ischemic change. The osseous structures and soft tissues are normal. There are calcifications of the cavernous internal carotid arteries. The visualized paranasal sinuses and mastoid air cells are well aerated. SPINE: The cervical spine is visualized in its entirety. Alignment is within normal limits with similar minimal anterolisthesis of C3 on C4 and C4 on C5. Normal C1/2 articulation. Cervical vertebral body heights are maintained. There is mild to moderate narrowing of the C5/6 and C6/7 disc space heights. Small osteophytes are scattered throughout the cervical spine. Prominent posterior disc osteophyte complex at the C5/6 level. Mild to moderate bilateral facet hypertrophy diffusely. Visualized lung apices are well aerated. CT/CT cervical spine wo IV con IMPRESSION: 1. No acute intracranial pathology. 2. No fractures or dislocations of the cervical spine.
--- NOTE | ~2023-10-26 | XR_ITS ---
EXAMINATION: XR CHEST CLINICAL INFORMATION: Dizziness and fatigue COMPARISON: 03/27/2022 and 11/09/2019 TECHNIQUE: 2 views of the chest were obtained. FINDINGS: Patient is status post post median sternotomy. No evidence of vascular congestion or pleural effusion. Lungs are clear. XR/XR chest 2V IMPRESSION: Status post median sternotomy and no evidence of cardiopulmonary disease
--- NOTE | 2023-10-26 13:02 | ED_ITS ---
HPI - General Adult General Chief complaint: Altered Mental Status Stated complaint: dizzy forgetful Time Seen by Provider: 10/26/23 14:52 Source: patient and family Mode of arrival: ambulatory Limitations: no limitations History of Present Illness HPI narrative: Patient comes to the emergency room accompanied by his daughter. Patient gives very vague history. According to the patient's daughter, the patient has known Alzheimer's dementia since 2013. Over the last few years, the dementia has been stable and patient has been able to live by himself. However, over the last 30 days, the patient has noted significant decline in cognition. Patient's seems to be more confused, forgets how to use it TV remote, forgets what he is talking about mid sentence, forgot how to inject his insulin. The patient's mother reports that the patient has fallen multiple times over the last month, last time over a week ago. Patient denies headache or neck pain. Patient is on Eliquis for atrial fibrillation. Patient's daughter is concerned that the patient lives alone and can not take care of himself. Related Data Home Medications Medication Instructions Recorded Confirmed donepezil 10 mg tablet 1 tab PO DAILY 07/12/21 11/08/21 empagliflozin 25 mg tablet 1 tab PO DAILY 07/12/21 11/08/21 (Jardiance) ezetimibe 10 mg-simvastatin 80 mg 1 tab PO BEDTIME 07/12/21 11/08/21 tablet glimepiride 4 mg tablet 1 tab PO BID 07/12/21 11/08/21 insulin aspart U-100 100 unit/mL See Protocol subcut QIDACHS PRN 07/12/21 11/08/21 (3 mL) subcutaneous pen (Novolog Hyperglycemia FlexPen U-100 Insulin aspart) pantoprazole 40 mg tablet,delayed 1 tab PO DAILY 07/12/21 11/08/21 release ascorbic acid (vitamin C) 500 mg 250 mg PO DAILY 07/13/21 11/08/21 tablet (Vitamin C) calcium carbonate 500 mg calcium 1,000 mg PO BID 07/13/21 11/08/21 (1,250 mg) tablet (Calcium 500) cholecalciferol (vitamin D3) 25 25 mcg PO DAILY 07/13/21 11/08/21 mcg (1,000 unit) tablet (Vitamin D3) cyanocobalamin (vitamin B-12) 1,000 mcg PO DAILY 07/13/21 11/08/21 1,000 mcg tablet duloxetine 60 mg capsule,delayed 60 mg PO DAILY 07/13/21 11/08/21 release memantine 10 mg tablet 10 mg PO BID 07/13/21 11/08/21 metoprolol succinate 50 mg 1 tab PO DAILY 07/13/21 11/08/21 tablet,extended release 24 hr aspirin 81 mg tablet,delayed 81 mg PO DAILY 11/08/21 11/08/21 release insulin glargine U-300 conc 300 48 unit subcut DAILY 11/08/21 11/08/21 unit/mL (1.5 mL) subcutaneous pen (Toujeo SoloStar U-300 Insulin) losartan 50 mg tablet 1 tab PO DAILY 11/08/21 11/08/21 Previous Rx's Medication Instructions Recorded heparin (porcine) 25,000 unit/250 25,000 unit (250 mL) continuous IV 11/08/21 mL in 0.45 % sodium chloride IV infusion .Q0M #1 mL soln Allergies Allergy/AdvReac Type Severity Reaction Status Date / Time No Known Allergies Allergy Verified 10/26/23 13:05 Review of Systems 2 Review of Systems: Yes Unobtainable due to mental condition PMFSH Past Medical History Medical History Alzheimer's dementia H/O: HTN (hypertension) Postoperative intra-abdominal abscess Abdominal pain Post-op pain Atherosclerotic cardiovascular disease Paroxysmal atrial fibrillation Paroxysmal atrial flutter Sleep apnea H/O: HTN (hypertension) Bacteremia Elevated liver enzymes Diabetes Diabetes Surgical History History of quadruple bypass History of [place]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 S/P laparoscopic cholecystectomy Family History Family History Father CAD (coronary artery disease) Sister CAD (coronary artery disease) Social History Social History Household Members: None Housing: Apartment Do you presently have visiting nurse or other home services: No Alcohol intake: current Alcohol intake frequency: 0-2 drinks per day Alcohol type: hard liquor Patient Tobacco Use Status: Current everyday Tobacco user Tobacco use type: Smokeless Tobacco Smoked in Last 30 Days: No Use of substances other than those prescribed or required for medical reasons: No Substance Use Type: Other Advance Directives: Yes Advance Directives on File: Yes Advance Directives Date on File: 08/02/21 service: No Current occupational status: retired Physical Exam ED Vital Signs: Vital Signs - 24 hr 10/26/23 13:05 Temperature 98.3 F Pulse Rate 74 Respiratory Rate 16 Blood Pressure 110/67 Pulse Oximetry 96 Oxygen Delivery Method Room Air BMI result Body Mass Index 29.5 Const Other: Appearance: Alert. No acute distress. Eyes: Pupils equal, round and reactive to light. ENT: Pharynx normal. Neck: Normal inspection. Neck supple. No lymph nodes noted. No crepitus CVS: Normal heart rate and rhythm. Pulses normal. Normal S1 and S2 Respiratory: No respiratory distress. Breath sounds normal. No Wheezing. No rales Abdomen: Soft and nontender. No rigidity. No distention. Skin: Skin warm and dry. Normal skin color. Normal skin turgor. Multiple ecchymosis in upper extremities, no skin abrasions or lacerations Extremities: No lower extremity edema. No Lacerations. No Rash Neuro: No motor deficit. No sensory deficit. Moving all extremities. No slurred speech. CN 2 through 12 grossly intact Psych: calm, cooperative, normal affect Course Course Course Narrative: This is a rapid medical exam: Additional HPI, ROS, PE not included below will be deferred to primary provider. Patient is a 73-year-old male with history of Alzheimer's dementia, DM, ACS, afib on Eliquis, HTN, KATINA in CPAP presenting to the ED with daughter with complaint of fatigue, weakness, dizziness and lightheadedness. Daughter reports fall last week with head strike. She states patient lives alone, had been steady with his dementia for the past several years but over the past 30 days has had a significant decline, she feels he is unsafe at home, increased confusion. Has burned food, is not using his CPAP which he previously used consistently, is unable to administer his own medications. He does not have any VNA services at this time. Plan: EKG, UA, labs, CT head and c-spine Medical Decision Making Medical Decision Making [facility] Narrative: -my interpretation of labs: Normal hematology, chemistry for the normal, glucose slightly elevated to 104, T bili 1.5, rest of LFTs within normal limits, no abdominal pain. ETOH negative. Flu/RSV/COVID negative. Urinalysis negative for UTI -my interpretation of CT scan of the head and neck: No intracranial bleed, no C- spine fracture or subluxation -my interpretation of chest x-ray: No infiltrates, sternotomy -I discussed with the patient's daughter that given the current history, it is likely that we will need case management since it has not safe to discharge the patient home. Patient's daughter requesting placement for her father. Case management consult pending -physician observation started at 18:00 Differential Diagnosis Differential Diagnoses: The differential diagnosis associated with the presentation includes (Alzheimer's dementia, UTI, psychosis) Admission/Observation Consideration of admission/observation: Escalation of care including admission/observation considered (Patient will need case management versus hospitalization) Lab Data MDM Lab Attestation statement: I reviewed the patient's lab results. 10/26/23 13:54 10/26/23 13:54 Labs: Lab Results 10/26/23 10/26/23 Range/Units 13:54 17:15 WBC 9.0 (4.8-10.8) X10*3/uL RBC 5.74 (4.60-5.80) X10*6/uL Hgb 17.0 (14.0-18.0) g/dl Hct 48.9 (42.0-52.0) % MCV 85.2 (80.0-98.0) fL MCH 29.6 (27.0-33.0) pg MCHC 34.8 (31.0-36.0) g/dl RDW 14.2 (11.0-16.0) % Plt Count 213 (160-400) X10*3/uL MPV 11.6 (9.4-12.4) fL Immature Gran % (Auto) 0.3 (0.0-0.4) % Neut % (Auto) 69.5 (45-73) % Lymph % (Auto) 18.8 L (20-40) % Preston % (Auto) 9.8 (2-11) % Eos % (Auto) 0.7 (0-4) % Baso % (Auto) 0.9 (0-2) % Lymph # (Auto) 1.7 (1.2-4.9) X10*3/uL Preston # (Auto) 0.9 (0.1-1.2) X10*3/uL Eos # (Auto) 0.1 (0.0-0.4) X10*3/uL Baso # (Auto) 0.1 (0.0-0.2) X10*3/uL Abs Immat Gran (auto) 0.03 (0.00-0.03) X10*3/uL Absolute Neuts (auto) 6.3 (2.0-8.3) x10*3/uL Absolute Nucleated RBC 0.000 (0.0-0.012) X10*3/uL Nucleated RBC % (auto) 0.0 (0.0-0.2) /100WBC PT 12.9 (11.1-13.3) SEC INR 1.1 (0.9-1.1) Sodium 140 (135-145) mmol/L Potassium 3.9 (3.3-5.1) mmol/L Chloride 100 (96-108) mmol/L Carbon Dioxide 24 (22-29) mmol/L Anion Gap 20 (12-20) BUN 15 (9-16) mg/dL Creatinine 1.34 (0.5-1.4) mg/dL Estim Creat Clear Calc 57.1 Estimated GFR 52 Random Glucose 204 H (60-115) mg/dL Calcium 9.8 (8.4-10.2) mg/dL Total Bilirubin 1.5 H (0.0-1.0) mg/dL AST 29 (5-37) U/L ALT 30 (0-40) U/L Alkaline Phosphatase 133 H (39-117) U/L Troponin I High Sens 10.8 (<3.5-35.0) ng/L Total Protein 7.4 (6.5-8.0) g/dL Albumin 4.5 (3.5-5.0) g/dL Urine Color Dark Yellow Urine Appearance Clear Urine pH 5.5 (5.0-9.0) Ur Specific [place] >= 1.030 H (1.005-1.025) Urine Protein Negative (Neg-Trace) mg/dL Urine Glucose (UA) >=1000 H (Negative) mg/dL Urine Ketones 15 (Negative) mg/dL Urine Blood Negative (Negative) Urine Nitrite Negative (Negative) Ur Leukocyte Esterase Negative (Negative) Urine Opiates Screen Not Detected (Not Detect) Urine Fentanyl Screen Not Detected (Not Detect) Ur Barbiturates Screen Not Detected (Not Detect) Ur Phencyclidine Scrn Not Detected (Not Detect) Ur Amphetamines Screen Not Detected (Not Detect) U Benzodiazepines Scrn Not Detected (Not Detect) Urine Cocaine Screen Not Detected (Not Detect) U Marijuana (THC) Screen Not Detected (Not Detect) Ethyl Alcohol < 10 mg/dL Influenza Type A (PCR) NEGATIVE (Negative) Influenza Type B (PCR) NEGATIVE (Negative) RSV RNA Qual (PCR) NEGATIVE (Negative) SARS-CoV-2 RNA (RT-PCR) NEGATIVE (Negative) Independent Interpretation I performed an independent interpretation of an: Plain X-Ray Radiology Impression Radiologist Impression: FINDINGS: Patient is status post post median sternotomy. No evidence of vascular congestion or pleural effusion. Lungs are clear. XR/XR chest 2V IMPRESSION: Status post median sternotomy and no evidence of cardiopulmonary disease Critical Care Time Critical Care Time Critical Care Time: Yes Total Critical Care Time: 30 Attestation: I have personally provided critical care time. Time includes review of lab data, radiology results, discussion with consultants, and monitoring for potential decompensation. Intervention performed as documented. Discharge Plan Discharge Clinical Impression: Dementia Patient Disposition: Still a Patient Prescriptions: No Action donepezil 10 mg tablet 1 tab PO DAILY glimepiride 4 mg tablet 1 tab PO BID insulin aspart U-100 [Novolog FlexPen U-100 Insulin] 100 unit/mL (3 mL) insulin pen See Protocol subcut QIDACHS PRN (Reason: Hyperglycemia) Protocol: Insulin Correction Scale Less than or equal to 110 ---- Give (units): 0 111 to 150 Give (units): 0 151 to 200 Give (units): 2 201 to 250 Give (units): 4 251 to 300 Give (units): 6 301 to 350 Give (units): 8 Greater than 350 Give (units): 10 Call MD if Blood Glucose > : 350 Rx Instructions: Doctor's Order ezetimibe-simvastatin 10-80 mg tablet 1 tab PO BEDTIME Jardiance 25 mg tablet 1 tab PO DAILY pantoprazole 40 mg tablet,delayed release (DR/EC) 1 tab PO DAILY metoprolol succinate 50 mg tablet extended release 24 hr 1 tab PO DAILY duloxetine 60 mg capsule,delayed release(DR/EC) 60 mg PO DAILY cyanocobalamin (vitamin B-12) 1,000 mcg Tablet 1,000 mcg PO DAILY calcium carbonate [Calcium 500] 500 mg calcium (1,250 mg) Tablet 1,000 mg PO BID ascorbic acid (vitamin C) [Vitamin C] 500 mg Tablet 250 mg PO DAILY cholecalciferol (vitamin D3) [Vitamin D3] 25 mcg (1,000 unit) Tablet 25 mcg PO DAILY memantine 10 mg tablet 10 mg PO BID losartan 50 mg tablet 1 tab PO DAILY Vero Kimball U-300 Insulin 300 unit/mL (1.5 mL) insulin pen 48 unit subcut DAILY aspirin 81 mg Tablet,Delayed Release (Dr/Ec) 81 mg PO DAILY heparin(porcine) in 0.45% NaCl 25,000 unit/250 mL Parenteral Solution 25,000 unit continuous IV infusion .Q0M Qty: 1 0RF
--- NOTE | 2023-10-26 13:04 | ECG_ITS ---
Test Reason : DIZZINESS Blood Pressure : / mmHG Vent. Rate : 074 BPM Atrial Rate : 074 BPM P-R Int : 184 ms QRS Dur : 094 ms QT Int : 364 ms P-R-T Axes : 006 -14 256 degrees QTc Int : 404 ms Sinus rhythm with Premature atrial complexes Low voltage QRS Cannot rule out Anterior infarct , age undetermined T wave abnormality, consider inferior ischemia Abnormal ECG When compared with ECG of 16-JUL-2022 23:58, IA interval has decreased T wave inversion now evident in Inferior leads Nonspecific T wave abnormality, worse in Lateral leads Referred By: Ana Cristina Echevarria Electronically Signed By:Jonas Joyner
[2023-10-26 13:05] VITALS: BP 110/67; PULSE 74; RESP 16; TEMP 36.8; O2SAT 96; BMI 29.5
[2023-10-26 14:04] LABS: MANUAL DIFF FLAG NO
[2023-10-26 14:05] LABS: Basophils Absolute Auto 0.1 X10*3/uL (0.0-0.2); Basophils Percent Auto 0.9 % (0-2); Eosinophils Absolute Auto 0.1 X10*3/uL (0.0-0.4); Eosinophils Percent Auto 0.7 % (0-4); Hematocrit 48.9 % (42.0-52.0); Imm Gran Abs Auto 0.03 X10*3/uL (0.00-0.03); Imm Gran Pct Auto 0.3 % (0.0-0.4); Lymphocytes Absolute Auto 1.7 X10*3/uL (1.2-4.9); Lymphocytes Percent Auto 18.8 % (20-40); Mean Corpuscular HGB Conc 34.8 g/dl (31.0-36.0); Mean Corpuscular Hemoglobin 29.6 pg (27.0-33.0); Mean Corpuscular Volume 85.2 fL (80.0-98.0); Mean Platelet Volume 11.6 fL (9.4-12.4); Monocytes Absolute Auto 0.9 X10*3/uL (0.1-1.2); Monocytes Percent Auto 9.8 % (2-11); Neutrophils Absolute Auto 6.3 x10*3/uL (2.0-8.3); Neutrophils Percent Auto 69.5 % (45-73); Platelet Count 213 X10*3/uL (160-400); Red Blood Count 5.74 X10*6/uL (4.60-5.80); Red Cell Distribution Width 14.2 % (11.0-16.0)
[2023-10-26 14:11] LABS: INTERNATIONAL NORM RATIO 1.1 (0.9-1.1); Prothrombin Time 12.9 SEC (11.1-13.3)
[2023-10-26 14:26] LABS: Alanine Aminotransferase 30 U/L (0-40); Albumin Level 4.5 g/dL (3.5-5.0); Alkaline Phosphatase 133 U/L (39-117); Anion Gap 20 (12-20); Aspartate Amino Transferase 29 U/L (5-37); Bilirubin Total 1.5 mg/dL (0.0-1.0); Blood Urea Nitrogen 15 mg/dL (9-16); Calcium 9.8 mg/dL (8.4-10.2); Carbon Dioxide 24 mmol/L (22-29); Chloride 100 mmol/L (96-108); Creatinine Clr Calc Pharmacy 57.1; Estimated Glomerular Filt Rate 52; Ethanol < 10 mg/dL; Glucose Random 204 mg/dL (60-115); Potassium 3.9 mmol/L (3.3-5.1); Sodium 140 mmol/L (135-145); Total Protein 7.4 g/dL (6.5-8.0)
[2023-10-26 14:32] LABS: Troponin-I High Sensitivity 10.8 ng/L (<3.5-35.0)
[2023-10-26 14:49] LABS: Influenza A PCR NEGATIVE (Negative); Influenza B PCR NEGATIVE (Negative); Resp Syncy Virus RNA Qual PCR NEGATIVE (Negative); SARS COV2 PCR INHOUSE NEGATIVE (Negative)
--- NOTE | 2023-10-26 17:20 | PC.NURSE ---
urine obtained/sent to lab.
[2023-10-26 17:39] LABS: Appearance Urine Clear; Color Urine Dark Yellow; Glucose Urine UA >=1000 mg/dL (Negative); Leukocyte Esterase Urine Negative (Negative); Nitrite Urine Negative (Negative); PH 5.5 (5.0-9.0); Specific Gravity - Urine >= 1.030 (1.005-1.025); UMIC TRIGGER UACC YES; Urine Blood Negative (Negative); Urine Ketones 15 mg/dL (Negative); Urine Protein Negative (Neg-Trace)
[2023-10-26 17:42] LABS: Amphetamine Screen Urine Not Detected (Not Detect); Barbiturates, Urine Not Detected (Not Detect); Benzodiazepines Screen Urine Not Detected (Not Detect); Cannabinoid Screen Urine Not Detected (Not Detect); Cocaine Screen Urine Not Detected (Not Detect); Fentanyl, urine Not Detected (Not Detect); Opiate Screen Urine Not Detected (Not Detect); Phencyclidine Screen Urine Not Detected (Not Detect)
[2023-10-26 18:11] LABS: Bacteria Urine None Seen (None Seen); Hyaline Casts Urine 0-2 /LPF (0-2); RBC Urine 0-2 /HPF (0-2); Squamous Epithelial Cell Urine 0-2 /HPF (0-2)
[2023-10-26 18:12] LABS: UACC Culture Trigger YES; WBC Urine 0-5 /HPF (0-5)
--- NOTE | 2023-10-26 18:22 | PC.NURSE ---
pt and family member speaking w/ PT at this time.
--- NOTE | 2023-10-26 18:23 | PC.NURSE ---
pt and family member speaking w/ case management at this time. plan of care ongoing.
[2023-10-26 18:34] VITALS: BP 136/69; PULSE 58; RESP 14; TEMP 36.4; O2SAT 93
--- NOTE | 2023-10-26 19:56 | PC.NURSE ---
pt ate dinner. ambulating with steady gait to and from bathroom.
--- NOTE | 2023-10-26 20:08 | PHA.MEDREC ---
Pharmacy Consult ? Medication Reconciliation Pharmacy has completed the medication reconciliation. Patient's daughter Bre reported medicaitons. Rehana Ibrahim, TomasD
[2023-10-26] MEDS: Memantine HCl 10 MG TABLET PO (20:51)
[2023-10-26] MEDS: Apixaban 5 MG TABLET PO (20:51)
[2023-10-26] MEDS: Donepezil HCl 10 MG TABLET PO (20:51)
--- NOTE | 2023-10-26 21:19 | MHC.CM.ED ---
CM recieved consult from Dr. Lentz. Met with patient and his daughter. Pt has advancing dementia, worsening over past month per daughter. Pt lives alone, uses no DME, ambulates freely and has [employer] every 2 weeks for light housekeeping. Pt does not drive. Patient and daughter agree that he is not safe at home. Pt forgot who is daughter was and thought she was his sister. Daughter states that was the first time he did not remember her. When prompted, he remembered her, but not her name. Pt tells CM that he forgets his medications, despite a medication reminder on his telephone, forgets how to give himself insulin, and tells CM that he forgot to shut off the stove twice. Daughter cannot care for her father. They are agreeable to placement. Pt receives about $3000/month, including his [facility] from [facility] [employer] and has an YEISON with 13,000. Pt worked at the [employer] in maintenance. He is not a . Spoke with both patient and daughter about options for care, including 13/03 home care and approximate costs, assisted living memory care and approximate costs and LTC. Explained that patient would need to either private pay for home services/assisted living or LTC. If no funds, or spends down funds, then patient might qualify for MH. Daughter does not feel her father can return home. Plan of Care: Referral to financial counselors for assistance with MH application, information given on 13/03 live in care, local assisted living memory units and [facility] referral service. Encouraged daughter to start calling facilities for information regarding costs and availability. Daughter is aware that [facility] [place] her. Pt will remain in ED pending safe discharge plan. No referrals placed at this time for LTC, as patient has limited funds for private pay and help with MH application.
[2023-10-27 05:19] VITALS: BP 144/64; PULSE 64; RESP 16; TEMP 36.3; O2SAT 95
[2023-10-27] MEDS: Omeprazole 20 MG CAPSULE.DR PO (05:54)
[2023-10-27 07:40] VITALS: BP 138/85; PULSE 66; RESP 16; TEMP 37; O2SAT 98
[2023-10-27 08:45] LABS: Glucose, Whole Blood 301 mg/dL (60-115)
[2023-10-27] MEDS: Aspirin Enteric Coated 81 MG TABLET.DR PO (08:45)
[2023-10-27] MEDS: Metoprolol Succinate ER 50 MG TAB.ER.24H PO (08:45)
[2023-10-27] MEDS: Empagliflozin 25 MG TABLET PO (08:46)
[2023-10-27] MEDS: Memantine HCl 10 MG TABLET PO ×2 (08:46→20:37)
[2023-10-27] MEDS: Losartan Potassium 50 MG TABLET 75 MG PO (08:46)
[2023-10-27] MEDS: Cyanocobalamin (Vitamin B-12) 1,000 MCG TABLET 1000 MCG PO (08:46)
[2023-10-27] MEDS: Cholecalciferol (Vitamin D3) 25 MCG TABLET PO (08:46)
[2023-10-27] MEDS: Apixaban 5 MG TABLET PO ×2 (08:46→20:37)
[2023-10-27] MEDS: Atorvastatin Calcium 80 MG TABLET PO (08:46)
[2023-10-27] MEDS: Insulin Lispro 100 UNIT/ML 3 ML VIAL 19 UNIT SUBCUT ×3 (08:47→17:12)
[2023-10-27] MEDS: DULoxetine HCl 60 MG CAPSULE.DR PO (08:47)
[2023-10-27] MEDS: Insulin Glargine,Hum.rec.anlog 100 UNIT/ML 10 ML VIAL 42 UNIT SUBCUT (08:47)
[2023-10-27 12:01] LABS: Glucose, Whole Blood 204 mg/dL (60-115)
[2023-10-27 13:52] VITALS: BP 140/80; PULSE 63; RESP 16; TEMP 36.7; O2SAT 94
[2023-10-27 16:19] LABS: Glucose, Whole Blood 77 mg/dL (60-115)
[2023-10-27 18:02] VITALS: BP 140/66; PULSE 66; RESP 18; TEMP 37; O2SAT 95
--- NOTE | 2023-10-27 18:27 | PC.NURSE ---
Assumed care at 0700. Patient alert and oriented only to person. He did state that he understands that his memory is bad and he needs to go live in a [place] [facility] [place]. Calm and cooperative. Ambulatory. Denies any pain. Tolerating diabetic diet. Insulin given as ordered. Using urinal at bedside. Awaiting for placement.
[2023-10-27 20:00] VITALS: BP 143/98; PULSE 63; RESP 17; TEMP 36.3; O2SAT 94
[2023-10-27 20:10] LABS: Glucose, Whole Blood 192 mg/dL (60-115)
--- NOTE | 2023-10-27 20:11 | MHC.EDTECH ---
POC: 192
[2023-10-27] MEDS: Donepezil HCl 10 MG TABLET PO (20:37)
[2023-10-28 06:00] VITALS: BP 131/81; PULSE 65; RESP 18; TEMP 36.3; O2SAT 98
[2023-10-28 06:31] LABS: Glucose, Whole Blood 245 mg/dL (60-115)
[2023-10-28] MEDS: Omeprazole 20 MG CAPSULE.DR PO (06:39)
[2023-10-28] MEDS: Insulin Lispro 100 UNIT/ML 3 ML VIAL 19 UNIT SUBCUT ×3 (06:39→18:15)
[2023-10-28] MEDS: Insulin Glargine,Hum.rec.anlog 100 UNIT/ML 10 ML VIAL 42 UNIT SUBCUT (08:24)
[2023-10-28] MEDS: Cholecalciferol (Vitamin D3) 25 MCG TABLET PO (08:25)
[2023-10-28] MEDS: Aspirin Enteric Coated 81 MG TABLET.DR PO (08:25)
[2023-10-28] MEDS: Losartan Potassium 50 MG TABLET 75 MG PO (08:26)
[2023-10-28] MEDS: DULoxetine HCl 60 MG CAPSULE.DR PO (08:26)
[2023-10-28] MEDS: Cyanocobalamin (Vitamin B-12) 1,000 MCG TABLET 1000 MCG PO (08:26)
[2023-10-28] MEDS: Metoprolol Succinate ER 50 MG TAB.ER.24H PO (08:26)
[2023-10-28] MEDS: Empagliflozin 25 MG TABLET PO (08:26)
[2023-10-28] MEDS: Memantine HCl 10 MG TABLET PO ×2 (08:26→20:36)
[2023-10-28] MEDS: Apixaban 5 MG TABLET PO ×2 (08:26→20:36)
[2023-10-28] MEDS: Atorvastatin Calcium 80 MG TABLET PO (08:26)
[2023-10-28 11:36] LABS: Glucose, Whole Blood 202 mg/dL (60-115)
--- NOTE | 2023-10-28 11:54 | PC.NURSE ---
pt brought back to ED from overflow, pt sleeping, wakes to verbal stimulus- pt alert to person at times place, urinal at bedside, vitals stable, respirations equal and non labored, poc obtained, denies pain/discomfort, call stevenson within reach, will continue to monitor
--- NOTE | 2023-10-28 13:24 | PC.NURSE ---
patient a&ox3, family at bedside, pt sitting up eating lunch, pt medicated with insulin per order, currently denying pain/discomfort, call stevenson within reach, will continue to monitor.
[2023-10-28 17:19] LABS: Glucose, Whole Blood 231 mg/dL (60-115)
[2023-10-28 17:26] VITALS: BP 136/76; PULSE 72; RESP 18; TEMP 36.7; O2SAT 98
--- NOTE | 2023-10-28 19:30 | PC.NURSE ---
Assumed care of pt. Pt sitting upright on bed, no acute complaints at this time. Pt ate 75% of dinner plate provided. Plan to medicate per orders with night meds, otherwise continuing to monitor.
[2023-10-28 19:54] VITALS: BP 128/73; PULSE 69; RESP 16; TEMP 36.8; O2SAT 98
[2023-10-28] MEDS: Donepezil HCl 10 MG TABLET PO (20:36)
[2023-10-29] MEDS: Omeprazole 20 MG CAPSULE.DR PO (06:15)
[2023-10-29 06:17] VITALS: BP 155/76; PULSE 54; RESP 16; TEMP 36.6; O2SAT 96
[2023-10-29 06:32] LABS: Glucose, Whole Blood 179 mg/dL (60-115)
[2023-10-29] MEDS: Insulin Lispro 100 UNIT/ML 3 ML VIAL 19 UNIT SUBCUT ×3 (08:37→18:41)
[2023-10-29] MEDS: Insulin Glargine,Hum.rec.anlog 100 UNIT/ML 10 ML VIAL 42 UNIT SUBCUT (08:38)
[2023-10-29] MEDS: Apixaban 5 MG TABLET PO ×2 (08:40→21:37)
[2023-10-29] MEDS: Cholecalciferol (Vitamin D3) 25 MCG TABLET PO (08:40)
[2023-10-29] MEDS: DULoxetine HCl 60 MG CAPSULE.DR PO (08:40)
[2023-10-29] MEDS: Metoprolol Succinate ER 50 MG TAB.ER.24H PO (08:40)
[2023-10-29] MEDS: Memantine HCl 10 MG TABLET PO ×2 (08:41→21:37)
[2023-10-29] MEDS: Cyanocobalamin (Vitamin B-12) 1,000 MCG TABLET 1000 MCG PO (08:41)
[2023-10-29] MEDS: Losartan Potassium 50 MG TABLET 75 MG PO (08:41)
[2023-10-29] MEDS: Atorvastatin Calcium 80 MG TABLET PO (08:41)
[2023-10-29] MEDS: Aspirin Enteric Coated 81 MG TABLET.DR PO (08:42)
[2023-10-29 08:46] VITALS: BP 106/64; PULSE 67; RESP 16; TEMP 36.4; O2SAT 97
--- NOTE | 2023-10-29 09:33 | PC.NURSE ---
Jardiance not available in ed pyxis, pharmacy was called and will bring to the unit.
[2023-10-29] MEDS: Empagliflozin 25 MG TABLET PO (10:41)
--- NOTE | 2023-10-29 10:41 | PC.NURSE ---
Received Jardiance from pharmacy, med given as documented.
[2023-10-29 13:28] LABS: Glucose, Whole Blood 124 mg/dL (60-115)
[2023-10-29 18:25] LABS: Glucose, Whole Blood 160 mg/dL (60-115)
[2023-10-29 19:46] VITALS: BP 153/80; PULSE 62; RESP 16; TEMP 36.6; O2SAT 96
--- NOTE | 2023-10-29 19:47 | PC.NURSE ---
pt ate 100% dinner poc rechecked 199. vss. warm blanket given. pt resting comfortably. nad. call stevenson within reach.
[2023-10-29 19:49] LABS: Glucose, Whole Blood 199 mg/dL (60-115)
[2023-10-29] MEDS: Donepezil HCl 10 MG TABLET PO (21:37)
[2023-10-29 22:15] VITALS: BP 140/76; PULSE 57; RESP 20; O2SAT 95
[2023-10-30 05:14] VITALS: BP 150/75; PULSE 65; RESP 16; TEMP 36.8; O2SAT 95
[2023-10-30] MEDS: Omeprazole 20 MG CAPSULE.DR PO (07:08)
[2023-10-30 07:12] LABS: Glucose, Whole Blood 191 mg/dL (60-115)
[2023-10-30] MEDS: Insulin Lispro 100 UNIT/ML 3 ML VIAL 19 UNIT SUBCUT ×2 (07:24→12:04)
--- NOTE | 2023-10-30 08:30 | PC.NURSE ---
Received pt to ED OV. Pt is Alert and oriented to self. Confused as to why he is here and what are next steps. Pt voices no complaints at the time. Missing name band.
[2023-10-30 08:39] VITALS: BP 132/71; PULSE 62; RESP 18; TEMP 36.6; O2SAT 92
[2023-10-30 08:53] LABS: Glucose, Whole Blood 300 mg/dL (60-115)
[2023-10-30] MEDS: Metoprolol Succinate ER 50 MG TAB.ER.24H PO (09:32)
[2023-10-30] MEDS: Losartan Potassium 50 MG TABLET 75 MG PO (09:32)
[2023-10-30] MEDS: Apixaban 5 MG TABLET PO ×2 (09:32→21:13)
[2023-10-30] MEDS: Aspirin Enteric Coated 81 MG TABLET.DR PO (09:32)
[2023-10-30] MEDS: DULoxetine HCl 60 MG CAPSULE.DR PO (09:33)
[2023-10-30] MEDS: Memantine HCl 10 MG TABLET PO ×2 (09:33→21:13)
[2023-10-30] MEDS: Cholecalciferol (Vitamin D3) 25 MCG TABLET PO (09:33)
[2023-10-30] MEDS: Cyanocobalamin (Vitamin B-12) 1,000 MCG TABLET 1000 MCG PO (09:34)
[2023-10-30] MEDS: Atorvastatin Calcium 80 MG TABLET PO (09:34)
[2023-10-30] MEDS: Empagliflozin 25 MG TABLET PO (09:34)
[2023-10-30] MEDS: Insulin Lispro 100 UNIT/ML 3 ML VIAL 8 UNIT SUBCUT (09:34)
[2023-10-30] MEDS: Insulin Glargine,Hum.rec.anlog 100 UNIT/ML 10 ML VIAL 42 UNIT SUBCUT (09:35)
[2023-10-30 11:15] LABS: Glucose, Whole Blood 452 mg/dL (60-115)
--- NOTE | 2023-10-30 13:58 | MHC.CM.ED ---
Patient remains in ER overflow. Received telephone call from patient's daughter, Bre. Bre requested clinical info be sent to Malu at [facility]. Clinical info sent as requested. Continue to monitor for d/c needs.
[2023-10-30 14:00] VITALS: BP 128/64; PULSE 74; RESP 16; TEMP 36.1; O2SAT 96
[2023-10-30 17:05] LABS: Glucose, Whole Blood 122 mg/dL (60-115)
--- NOTE | 2023-10-30 18:26 | PC.NURSE ---
Pt had a good shift today. Pt remains pleasantly confused and in good spirits. Pt is forgetful and needs to be reoriented from time to farheen. Pt ate most of his meals today and took multiple naps in between. No complaints voiced today
--- NOTE | 2023-10-30 19:27 | PC.NURSE ---
assumed care of pt at 1900. pt awake and alert, resting comfortably in bed. bed alarm on for pt safety. call stevenson within reach. plan of care ongoing.
[2023-10-30 19:53] VITALS: BP 144/85; PULSE 58; RESP 18; TEMP 36.6; O2SAT 95
[2023-10-30] MEDS: Donepezil HCl 10 MG TABLET PO (21:13)
[2023-10-30 21:18] LABS: Glucose, Whole Blood 165 mg/dL (60-115)
--- NOTE | 2023-10-31 03:32 | PC.NURSE ---
pt resting comfortably nad.
[2023-10-31 06:14] VITALS: BP 140/72; PULSE 78; RESP 16; TEMP 36.9; O2SAT 96
[2023-10-31] MEDS: Omeprazole 20 MG CAPSULE.DR PO (06:40)
--- NOTE | 2023-10-31 07:08 | PC.NURSE ---
this nurse took over care for pt at 7am, patient a&ox2 person/place, pt denies pain/discomfort at this time, vss, respirations equal/non labored, lungs clear, pt able to make his needs known, will continue to monitor.
[2023-10-31 07:39] LABS: Glucose, Whole Blood 261 mg/dL (60-115)
[2023-10-31] MEDS: Losartan Potassium 50 MG TABLET 75 MG PO (07:54)
[2023-10-31] MEDS: Memantine HCl 10 MG TABLET PO (07:54)
[2023-10-31] MEDS: Insulin Glargine,Hum.rec.anlog 100 UNIT/ML 10 ML VIAL 42 UNIT SUBCUT (07:54)
[2023-10-31] MEDS: Insulin Lispro 100 UNIT/ML 3 ML VIAL 19 UNIT SUBCUT ×3 (07:54→16:59)
[2023-10-31] MEDS: Cyanocobalamin (Vitamin B-12) 1,000 MCG TABLET 1000 MCG PO (07:55)
[2023-10-31] MEDS: Empagliflozin 25 MG TABLET PO (07:55)
[2023-10-31] MEDS: Apixaban 5 MG TABLET PO (07:55)
[2023-10-31] MEDS: Atorvastatin Calcium 80 MG TABLET PO (07:55)
[2023-10-31] MEDS: Metoprolol Succinate ER 50 MG TAB.ER.24H PO (07:55)
[2023-10-31] MEDS: Cholecalciferol (Vitamin D3) 25 MCG TABLET PO (07:55)
[2023-10-31] MEDS: Aspirin Enteric Coated 81 MG TABLET.DR PO (07:55)
[2023-10-31] MEDS: DULoxetine HCl 60 MG CAPSULE.DR PO (07:55)
--- NOTE | 2023-10-31 07:59 | PC.NURSE ---
pt ambulated to bathroom independently with steady gait, pt them medicated per order
--- NOTE | 2023-10-31 12:31 | MHC.CM.ED ---
Patient remains in ER. Spoke with Zuri of [facility]. Zuri will be on-site tomorrow 10/31 at 1030am to assess patient. Continue to monitor for d/c needs.
--- NOTE | 2023-10-31 12:39 | PC.NURSE ---
patient a&ox2, family at bedside, pt awaiting lunch, poc to be obtained by tech, will continue to monitor.
[2023-10-31 12:45] LABS: Glucose, Whole Blood 221 mg/dL (60-115)
--- NOTE | 2023-10-31 15:19 | MHC.CM.ED ---
Received telephone call from patient's daughter/HCP, Bre. After speaking with her and additional family, they have decided to take the patient home and have family watch him. Family will be here at 6pm to transport him home. Referral made to [facility] for longterm at Bre's request. Patient, Cristina CALHOUN and Bre LYNNE aware. Continue to monitor for d/c needs.
[2023-10-31 16:43] LABS: Glucose, Whole Blood 207 mg/dL (60-115)
--- NOTE | 2023-10-31 17:03 | PC.NURSE ---
pts evening POC 207, contacted Bre LYNNE r/t giving standard 4u per sliding scale and not 19u as scheduled ordered. ok to give 4u per Bre.
== END 2023-10-31 18:40 | disposition home or self-care (01) ==
PROVIDERS: Registered Nurse Emergency; Emergency Provider Emergency Medicine
DX: F03.B0 Unspecified dementia, moderate, without behavioral disturbance, psychotic disturbance, mood disturbance, and anxiety (principal); I48.91 Unspecified atrial fibrillation; R42 Dizziness and giddiness; R94.31 Abnormal electrocardiogram [ECG] [EKG]; R51.9 Headache, unspecified; E11.9 Type 2 diabetes mellitus without complications; F17.200 Nicotine dependence, unspecified, uncomplicated; Z11.52 Encounter for screening for COVID-19; Z20.822 Contact with and (suspected) exposure to COVID-19; Z91.81 History of falling; Z79.01 Long term (current) use of anticoagulants; Z79.4 Long term (current) use of insulin; Z79.899 Other long term (current) drug therapy
CPT/HCPCS: 0241U; 36415; 70450; 71046; 72125; 80053; 80307; 81001; 82947; 84484; 85025; 85610; 87086; 93005; 99285

== ENCOUNTER → 2023-10-26 13:04 | Outpatient (BNV) | payer MEDICARE, BC, SELFPAY | PROVIDERS: Emergency Provider Emergency Medicine; Visit Provider Internal Medicine Cardiovascular Disease | DX: I49.1 Atrial premature depolarization (principal) | CPT/HCPCS: 93010 ==